=== PATIENT | male | born 1930 | race Two or more races ===

== ENCOUNTER 2018-08-16 11:14 | Inpatient (IN) | payer MEDICARE, OTHER ==
[~2018-08-16] VITALS: Ht 167.6 cm; Wt 50.0 kg
[~2018-08-16 11:14] MED LIST: CEFAZOLIN 1 GM INJ ONE
[2018-08-16 12:03] VITALS: Ht 167.6 cm; Wt 50.0 kg
[2018-08-16] MEDS ORDERED: NITR-58 PO (12:16)
[2018-08-16] MEDS ORDERED: MEMA28CA PO (12:16)
[2018-08-16] MEDS ORDERED: BICA50TA47 PO (12:16)
[2018-08-16] MEDS ORDERED: FOLI-49 PO (12:16)
[2018-08-16] MEDS ORDERED: SODI1GRA MC (12:16)
[2018-08-16] MEDS ORDERED: DUTA0.5C PO (12:16)
[2018-08-16] MEDS ORDERED: [UNRECOGNIZED DRUG - CODE] (12:16)
[2018-08-16] MEDS ORDERED: MULT-902 PO (12:16)
[2018-08-16] MEDS ORDERED: TAMS-14 PO (12:16)
[2018-08-16] MEDS ORDERED: VITA200C45 PO (12:16)
[2018-08-16 12:18] VITALS: BP 117/63; PULSE 86; RESP 22
[2018-08-16] MEDS ORDERED: LIDOCAINE 2% (SDV) 5 ML INJ ONE (12:19)
[2018-08-16] MEDS ORDERED: PROPOFOL 200 MG INJ ONE (12:19)
[2018-08-16] MEDS ORDERED: ETOMIDATE 20 MG INJ ONE (12:19)
[2018-08-16] MEDS ORDERED: PROPOFOL 40 ML ONE (12:20)
--- NOTE | 2018-08-16 12:25 | PREAC ---
Date/Time of Note Date/Time of Note DATE: 08/16/18 TIME: 12:23 Anesthesia Eval and Record Evaluation Time Pre-Procedure Interview DATE: 08/16/18 TIME: 12:23 Age 87 Sex male NPO: 8 hrs Preoperative diagnosis malnutrition, failure to thrive Planned procedure EGD w/ PEG placement Past Medical History Past Medical History: Includes Cardio: HTN, CHF Pulm: Other Neuro: Peripheral neuropathy, Other (severe alzheimer's dementia) Musculoskeletal: Osteoarthritis Renal: Other (prostate CA) Heme: Anemia, Other (aplastic anemia) Surgery & Anesthesia Issues Aspiration risk Meds Anticoagulation: No Beta Jimmy within 24 hr: No Reason Beta Jimmy not given: Pt. not on B-Jimmy Reported Medications [Pomi-T] No Conflict Check 08/16/18 Multivitamin/Iron/Folic Acid (Centrum Adults Tablet) 1 Each Tablet, 1 EACH PO, TAB 08/16/18 Dutasteride* (Avodart*) 0.5 Mg Capsule, 0.5 MG PO DAILY, CAP 08/16/18 Bicalutamide* (Bicalutamide*) 50 Mg Tablet, 50 MG PO DAILY, TAB 08/16/18 Sodium Chloride (Sodium Chloride) 1 Gm Granules, 1 GM MC 08/16/18 Vitamin E* (Vitamin E*) 200 Unit Capsule, 180 MG PO DAILY, CAP 08/16/18 Folic Acid* (Folic Acid*) 1 Mg Tablet, 1 MG PO DAILY, TAB 08/16/18 Memantine* (Namenda* XR) 28 Mg Cap.spr.24, 28 MG PO DAILY, #30 TAB 08/16/18 Tamsulosin Hcl* (Flomax*) 0.4 Mg Cap.er.24h, 0.4 MG PO DAILY, CAP 08/16/18 Nitrofurantoin Monohyd Macrocr* (Macrobid*) 100 Mg Capsr, 100 MG PO BID, CAP 08/16/18 Meds reviewed: Yes Allergies Coded Allergies: No Known Allergy (Unverified , 08/16/18) Allergies Reviewed: Yes Labs/Studies Labs Reviewed: Reviewed by anesthesiologist test: N/A Studies: ECG, CXR Pre-procedure Exam Airway: Adequate mouth opening, Adequate thyromental dist Mallampati: Mallampati III Teeth: Normal Lung: Normal Heart: Normal ASA Physical Status ASA physical status: 3 Emergency: None Planned Anesthetic General/MAC: MAC Planned Pain Management Parenteral pain med Pre-operative Attestations Prior to commencing anesthesia and surgery, the patient was re-evaluated, there was verification of: *The patient's identity *The results of appropriate recent lab work and preoperative vital signs *The above evaluation not changing prior to induction *Anesthetic plan, risk benefits, alternative and complications discussed with patient/family; questions answered; patient/family understands, accepts and wishes to proceed. GAGE DURAN MD Aug 16, 2018 12:25
[2018-08-16] MEDS ORDERED: LEVALBUTEROL (NEB) 0.63 MG/3 ML AMP HHN ONE (13:30)
[2018-08-16 14:22] VITALS: BP 120/53; PULSE 90; RESP 16
--- NOTE | 2018-08-16 15:20 | GILP ---
DATE OF PROCEDURE: 08/16/2018 PROCEDURE: Percutaneous endoscopic gastrostomy and conversion of gastrostomy tube into the jejunosto my tube. INDICATIONS: An 87-year-old male with a history of cancer of the prostate, has been suffering from m alnutrition and failure to thrive. The purpose of this procedure is to put G-tube and convert it to J-tube for long-term enteral nutrition and prevent future aspiration. The risk of the procedure, rel ated and unrelated complications, anesthetic risks, alternatives were thoroughly discussed with the p atient and patient's son, family and the and informed consent was obtained. DESCRIPTION OF PROCEDURE: The patient was brought to the GI lab, was sedated by Dr. Palacio. Ancef w as given. After optimal sedation, scope was passed with much ease into esophagus which was grossly w ithin normal limits, advanced further down into stomach and through the pyloric channel into the duod enum and all the way up to the third part. There was no evidence of obstruction. By transilluminati on and digital palpation technique, appropriate site was chosen on anterior abdominal wall. Site was sterilized with chlorhexidine solution. A 2% Xylocaine was instilled by safe method. Small incisio n was made. Through that incision, trocar stylus was passed into the stomach. Stylet was removed th rough the hollow tip of the catheter. Insertion wire was passed and the entire procedure was complet ed by modified Ponsky technique. The patient was rescoped. The position of the internal bumper conf irmed no bleeding seen. External bumper was secured. The jejunostomy tube 12-Honduran was passed with much ease into the existing G-tube. The loop of the jejunostomy was grasped with a rat tooth forcep s and passed through the biopsy channel all the way into the third part of the duodenum. With the he lp of rat tooth, the whole jejunostomy tube was pushed further down all the way into the proximal jej unum. No loop was left behind. The patient tolerated the procedure. Scope was removed with good pa tient tolerance. IMPRESSION: 1. Percutaneous endoscopic gastrostomy. 2. Placement of jejunostomy tube done successfully. PLAN: 1. Resume feeding through the jejunostomy port after 6 hours at 20 mL per hour and we will slowly in crease it over a period of 3 to 4 days to prevent refeeding syndrome. 2. The patient will be placed on erythromycin to prevent migration of the J-tube back into the stoma ch, which I doubt it because it was pigtail G-tube. 3. Continue IV hydration. 4. Abdominal binder. Dictated By: AILIN DAVALOS/NTS Conf#: [id number] DID#: [id number] CC: SANIA WHITTINGTON MD;*EndCC*
--- NOTE | 2018-08-16 15:23 | CONS ---
DATE OF ADMISSION: 08/16/2018 DATE OF CONSULTATION: TYPE OF CONSULTATION: Gastroenterology. HISTORY OF PRESENT ILLNESS: An 87-year-old male was referred for failure to thrive and malnutrition. The patient's p.o. intake had been extremely poor for the last 2 to 3 months, has been losing weigh t. He has a cancer of the prostate with probably mets to the bone, has been getting chemotherapy. T he patient is also suffering from Alzheimer disease and hypertension. No nausea, no vomiting, no GI bleeding, no chest pain, no shortness of breath, no or BUSINESS SEGMENT MANAGER problem. PAST MEDICAL HISTORY: 1. Cancer of prostate. 2. Hypertension. 3. Alzheimer disease. ALLERGIES: NONE. SOCIAL HISTORY: Does not smoke or drink. Lives at home. PHYSICAL EXAMINATION GENERAL: Thin built, cachectic. VITAL SIGNS: Stable. HEENT: Unremarkable. NECK: Supple. No thyromegaly, no lymphadenopathy. CARDIOVASCULAR: No murmur, gallop or click. LUNGS: Clear. ABDOMEN: Benign. EXTREMITIES: No edema. CENTRAL NERVOUS SYSTEM: The patient is lethargic or mentally obtunded. LABORATORY DATA: Reviewed. BUN was 30. Hemoglobin was 8.9, platelet count was 90,000. IMPRESSION: 1. Malnutrition. 2. Failure to thrive. 3. Alzheimer disease. 4. 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 5. Hypertension. PLAN: To continue IV hydration. We will proceed with the placement of G-tube for long-term enteral nutrition. I discussed with the son and the and they understood the pros and cons of the proced ure and agreed. Dictated By: AILIN DAVALOS/MORENO Conf#: [id number] DID#: [id number] CC: SANIA WHITTINGTON MD;*EndCC*
--- NOTE | 2018-08-16 15:49 | RADRPT ---
Vent Rate: 90 bpm RR Interval: 0 msec SD Interval: 122 msec QRS Duration: 64 msec QT Interval: 368 msec QTC Interval: 450 msec P-R-T [place]: 56 - 78 - 79 degrees Normal sinus rhythm with sinus arrhythmia Anteroseptal infarct , age undetermined Abnormal ECG Electronically Signed By: Alejo Angulo
--- NOTE | 2018-08-16 16:14 | PAC ---
Date/Time of Note Date/Time of Note DATE: 08/16/18 TIME: 16:14 Post-Anesthesia Notes Post-Anesthesia Note Last documented vital signs Vital Signs Date Temp Pulse Resp B/P (MAP) Pulse Ox O2 O2 Flow FiO2 Time Delivery Rate 08/16/18 98.8 90 16 120/53 95 Mask 10.0 14:22 (75) Activity: WNL Respiratory function: WNL Cardiovascular function: WNL Mental status: Baseline Pain reasonably controlled: Yes Hydration appropriate: Yes Nausea/Vomiting absent: Yes GAGE DURAN MD Aug 16, 2018 16:14
--- NOTE | 2018-08-16 17:21 | HP ---
Date/Time of Note Date/Time of Note DATE: 08/16/18 TIME: 17:10 Assessment/Plan VTE Prophylaxis SCD contraindicated: other Pharmacological prophylaxis: other Pharm contraindication: other Lines/Catheters IV Catheter Type (from Nrs): Peripheral IV Urinary Cath still in place: No Assessment/Plan Assessment/Plan - Dysphagia status post PEG placement today. - sp G-J replaced - per GI - ASPIRATION precautions - Cachexia 2/2 Malnutrition and Failure to thrive. 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 - Pancytopenia 2/2 to above - Hem/Onc consult appreciated - Hypernatremia. - Prerenal state - nephrology consult appreciated -Stage 1 - sacrococcyx - wound care consult - wound care - dietary consult - Stage 1 - heels - wound carre consult - wound care - dietary consult - SCD for DVT prophylaxis - PROTONIX fro GI prophylaxis Patient seen in collaboration with Dr Malin. Júnior staff. Júnior Conrad( Son) Result Diagram: 08/16/18 1445 08/16/18 1400 Results 24hrs Laboratory Tests Test 08/16/18 14:00 08/16/18 14:45 Prothrombin Time 13.7 Prothrombin Time Ratio 1.1 INR International Normalized Ratio 1.04 Activated Partial Thromboplast Time 24.0 Sodium Level 147 H Potassium Level 3.5 Chloride Level 113 H Carbon Dioxide Level 26 Anion Gap 8 Blood Urea Nitrogen 32 H Creatinine 0.56 L Est Glomerular Filtrat Rate mL/min Glucose Level 93 Calcium Level 9.6 White Blood Count 2.6 L Red Blood Count 2.57 L Hemoglobin 6.8 *L Hematocrit 22.3 L Mean Corpuscular Volume 86.8 Mean Corpuscular Hemoglobin 26.5 L Mean Corpuscular Hemoglobin Concent 30.5 L Red Cell Distribution Width 18.3 H Platelet Count 75 L Mean Platelet Volume 10.5 H Immature Granulocytes % 11.700 H Neutrophils % Segmented Neutrophils % (Manual) 44 Band Neutrophils % (Manual) 6 H Lymphocytes % Lymphocytes % (Manual) 35 Monocytes % Monocytes % (Manual) 6 Eosinophils % Basophils % Metamyelocytes % (manual) 2 H Myelocytes % (Manual) 1 H Promyelocytes % (Manual) 6 H Nucleated Red Blood Cells % 6 H Immature Granulocytes # 0.300 H Neutrophils # Neutrophils # (Manual) 1.1 L Band Neutrophils # 0.1 Lymphocytes (Manual) 0.9 Lymphocytes # Monocytes # Monocytes # (Manual) 0.1 L Eosinophils # Basophils # Metamyelocytes # 0.0 Myelocytes # 0.0 Promyelocytes # 0.1 H Nucleated Red Blood Cells # Platelet Estimate DECREASED Polychromasia 2+ Hypochromasia 3+ Poikilocytosis 1+ Anisocytosis 2+ Microcytosis 2+ HPI/ROS Admit Date/Time Admit Date/Time ROS Mr. Camacho is an 87-year-old male with past history of hypertension, congestive heart failure,aplastic anemia, thrombocytopenia degenerative joint disease, prostate CA, Alzheimer's dementia, who is admitted 2/2 failure to thrive and malnutrition, extremely poor for the last 2 to 3 months. and he was losing weight. Possibly his prostate cancer has metastasis to bones and he has been getting chemotherapy. Patient underwent EGD with PEG placement by Dr Mendez. today. Cardiology consulted for abnormal EKG.SP GT placement, patient was noted to have dropped in blood pressure and arrhythmia onset. Pulmonary consulted abnoral chest x-ray revealing moderate to large right pleural effusion, small to moderate left pleural effusion, extensive bilateral upper lobe and lower lobe infiltrates right greater than left, ill-defined patchy lucency throughout the bilateral humerus. Oncology consult appreciated for aplastic Anemia; mtes prostate cancer. During assessment, no reported shortness of breath, chest pain, palpitations, headache, fever, chills, focal weakness or numbness, abdominal pain, urinary frequency, vomiting, diarrhea, constipation, GI bleed, any fall/injury/ recent sick contacts or hospitalizations. Patient is admitted under Dr Malin for further treatment and evaluation. Patients family- and son Jennifer Conrad at bed side- all QS answered. Plan of care dw staff Subjective hx not possible: pt non-verbal PMH/Family/Social Past Medical History hypertension congestive heart failure aplastic anemia thrombocytopenia degenerative joint disease prostate CA Alzheimer's dementia Medical History: congestive heart failure, hypertension Coded Allergies: No Known Allergy (Unverified , 08/16/18) Past Surgical History Past Surgical Hx: other (PEG placement ) Family History Significant Family History: no pertinent family hx, other ( No history of sudden cardiac or early CAD.) Social History No current tobacco, EtOH or illicit drug use. Does not smoke or drink. Lives at home. Exam/Review of Systems Vital Signs Vitals Vital Signs Date Temp Pulse Resp B/P (MAP) Pulse Ox O2 O2 Flow FiO2 Time Delivery Rate 08/16/18 98.8 90 16 120/53 95 Mask 10.0 14:22 (75) Exam Constitutional: alert, well developed, non-verbal Psych: nl mood/affect, confusion Eyes: nl lids, nl sclera ENMT: nl external ears & nose Neck: non-tender Respiratory: diminished breath sounds Cardiovascular: nl pulses, other (S1S2) Gastrointestinal: soft, non-tender, other (SP g/j tube placement ) Musculoskeletal: muscle weakness Extremities: edema (mild pitting edema ) Neurological: confused, lethargic Skin: other (Skin Decubs ) Lymph: nontender VIRY CASTILLO Aug 16, 2018 17:21
[2018-08-16 17:47] VITALS: BP 130/59; PULSE 95; RESP 20
--- NOTE | 2018-08-16 18:27 | RADRPT ---
Echocardiogram Report Patient Name: JUANITO JAIMESPatient ID: [id number] : 1930 (87y 11m)Study Date: 08/16/2018 2:51:16 PM Gender: MAccession #: [id number] Tech: Craig Hannah [facility] Location: [address] Ref.Physician: LUIS ALBERTO LARIOS Height(Cm): BSA: Weight(Kg): Quality: AdequateAccount #: Procedures: Echocardiographic Report: Transthoracic echocardiogram with complete 2D, M-Mode, and doppler examination. Indications: Abnormal EKG. Measurements: 2D/M Mode Doppler Measurement Value Normal Range Measurement Value Normal Range LVIDd 2D 4.3 [ 4.2 - 5.8 ] cm AV Peak Dorian 1.0 [ 100.0 - 170.0 ] cm/sec LVIDs 2D 2.8 [ 2.5 - 4.0 ] cm AV Peak PG 4.0 [ 2.0 - 9.0 ] mmHg LVPWd 2D 0.9 [ 0.6 - 1.0 ] cm LVOT Peak Dorian 0.8 [ 70.0 - 110.0 ] cm/sec IVSd 2D 0.9 [ 0.6 - 1.0 ] cm LVOT Peak PG 3.0 [ 2.0 - 6.0 ] mmHg AoR Diam 2D 2.4 [ 2.6 - 3.4 ] cm MV E Peak Dorian 0.7 [ 60.0 - 130.0 ] cm/sec EDV 2D 82.2 [ 62.0 - 150.0 ] ml MV A Peak Dorian 0.8 [ 100.0 - 120.0 ] cm/sec ESV 2D 28.8 [ 21.0 - 61.0 ] ml MV E/A 0.8 [ 0.8 - 1.5 ] ratio EF 2D 65.0 [ 52.0 - 72.0 ] percent MV Decel Time 176 [ 104 - 258 ] msec LA Dimen 2D 4.3 [ 3.0 - 4.0 ] cm Lat E` Dorian 0.1 [ 10.0 - 15.0 ] cm/sec Lateral E/E` 6.9 [ 1.0 - 2.0 ] ratio MV E/A 0.8 [ 0.8 - 1.5 ] ratio TR Peak Dorian 3.3 [ 100.0 - 280.0 ] cm/sec TR Peak PG 43.0 mmHg RVSP 46.0 [ 10.0 - 36.0 ] mmHg Findings: Left Ventricle: Normal left ventricular systolic function. Normal left ventricular cavity size. Normal left ventricular wall thickness. Ejection fraction is visually estimated at 55-60 %. Tissue Doppler/Mitral Doppler indices are consistent with impaired relaxation (Stage I diastolic dysfunction). Right Ventricle: Normal right ventricular size. Normal right ventricular systolic function. Left Atrium: The left atrium is normal in size. Right Atrium: The right atrium is normal in size. Mitral Valve: Mild mitral leaflet calcification. Mild mitral annular calcification. Trace mitral regurgitation. Aortic Valve: No hemodynamically significant aortic stenosis by doppler. Aortic cusps appear mildly calcified. Tricuspid Valve: Normal appearance of the tricuspid valve. Estimated peak PA systolic pressure 46 mmHg. There is mild tricuspid regurgitation. Pericardium: Normal pericardium with no significant pericardial effusion. Large Pleural effusion seen. Aorta: Normal aortic root. IVC: Normal size and normal respiratory collapse consistent with normal right atrial pressure. Conclusions: Normal left ventricular systolic function. Normal left ventricular cavity size. Normal left ventricular wall thickness. Ejection fraction is visually estimated at 55-60 %. Tissue Doppler/Mitral Doppler indices are consistent with impaired relaxation (Stage I diastolic dysfunction). ). Mild mitral leaflet calcification. Mild mitral annular calcification. Trace mitral regurgitation. Normal appearance of the tricuspid valve. Estimated peak PA systolic pressure 46 mmHg. There is mild tricuspid regurgitation. Normal pericardium with no significant pericardial effusion. Large Pleural effusion seen. Electronically Signed By: Luis Alberto Larios 2018-08-16 18:25:59 PDT
--- NOTE | 2018-08-16 18:35 | CONS ---
DATE OF ADMISSION: 08/16/2018 DATE OF CONSULTATION: 08/16/2018 TYPE OF CONSULTATION: Cardiology. REASON FOR CONSULTATION: Abnormal electrocardiogram, assess for acute coronary syndrome as well as c ardiac arrhythmia. REQUESTING PHYSICIANS: Shun Coleman MD and Sania Whittington MD HISTORY OF PRESENT ILLNESS: Mr. Camacho is an 87-year-old male with history of aplastic anemia with subsequent anemia and thrombocytopenia, hypertension, congestive heart failure, degenerative joint d isease, prostate CA, Alzheimer's dementia, who presents with failure to thrive and subsequently under went EGD with PEG placement today. Postoperatively, the patient was noted to have decrease in blood pressure and arrhythmia onset. The patient had an EKG done which revealed normal sinus rhythm, sinus arrhythmia at a rate of 90 with a normal axis, normal intervals, borderline low voltage in the anter oseptal Q's. The patient subsequently has been admitted to the telemetry floor where since admit has stable blood pressures systolic of 120 to 130 over diastolic of 50 to 59, pulse is in the 90s. The patient's labs are thus far notable for white count of 2.6, hemoglobin 6.8 and platelet count of 75, a sodium of 147, potassium 3.5, creatinine 0.5, BUN 32, INR of 1. The patient underwent a chest x-ra y revealing moderate to large right pleural effusion, small to moderate left pleural effusion, extens gus bilateral upper lobe and lower lobe infiltrates right greater than left, ill-defined patchy lucen cy throughout the bilateral humerus. PAST MEDICAL HISTORY: As above in HPI. MEDICATIONS CURRENTLY IN HOSPITAL: Pending at this time. MEDICATIONS PRIOR TO ADMIT: 1. Nitrofurantoin or Macrobid. 2. Casodex. 3. Flomax. 4. Namenda. 5. Sodium tablets 1 gram daily. 6. Folic acid. 7. Multi-Precious. 8. Folic acid. 9. Iron. 10. Vitamin E. 11. Avodart. ALLERGIES: NO KNOWN DRUG ALLERGIES. SOCIAL HISTORY: No current tobacco, EtOH or illicit drug use. FAMILY HISTORY: No history of sudden cardiac or early CAD. REVIEW OF SYSTEMS: As above in HPI. CONSTITUTIONAL: No fevers, chills. PULMONARY: No current signs of respiratory compromise. GASTROINTESTINAL: Dysphagia status post PEG placement today. GENITOURINARY: No hematuria. MUSCULOSKELETAL: Degenerative joint disease. PSYCHIATRIC: No documented psych history. NEUROLOGIC: Severe dementia of Alzheimer's. HEMATOLOGY AND ONCOLOGY: Prostate CA, anemia. PHYSICAL EXAMINATION: VITAL SIGNS: Temperature 97.4, blood pressure 130/59, pulse 95, respiratory rate 20, satting 98%. GENERAL: The patient is awake, noncommunicative. NECK: No jugular venous distention. CHEST: Upper airway transmitted rhonchorous sounds. Decreased breath sounds at bases bilaterally. HEART: Regular rate and rhythm. Normal S1, S2, I/ systolic murmur. ABDOMEN: Positive G-tube. Abdominal binder in place. EXTREMITIES: Generalized wasting. No significant lower extremity edema. LABORATORY DATA: As above in HPI. No further labs for my review at this time. IMAGING STUDIES: As above in HPI. No further imaging studies for my review at this time. ELECTROCARDIOGRAM: As above in HPI. No further electrocardiograms for my review at this time. IMPRESSION: 1. Abnormal electrocardiogram, assess for acute coronary syndrome. 2. Cardiac arrhythmia at this time, most consistent with sinus arrhythmia. 3. History of hypertension with per report hypotension at the end of the procedure. 4. Dysphagia, status post PEG placement today. 5. Failure to thrive. 6. History of prostate carcinoma. 7. History of aplastic anemia with ongoing anemia at this time. 8. Hypernatremia. 9. Prerenal state. 10. Pancytopenia. RECOMMENDATIONS: 1. At this time, we would maintain the patient on telemetry monitoring to follow rhythm and rates cl osely. 2. Recheck serial EKGs to assess for any significant ongoing changes, thus a repeat EKG in the [facility] EKG for any changes in rhythm. 3. We would complete the patient's rule out for myocardial infarction to ensure the patient's EKG ab normalities and anteroseptal Q's are chronic in nature and not due to any recent acute coronary event s and additionally to assure the patient's hypotensive episodes post-procedure were not due to any ac [place] coronary syndrome. 4. We will follow up patient's 2D echo and this will be done for assessment of ejection fraction, wa ll motion or rule out any major valve abnormalities. 5. Follow the patient's volume status closely. We will check a BNP to further assess and we would a dditionally give free water for elevated sodium. 6. Additionally consider possible antibiotic therapy given the findings with chest x-ray. Thank you for allowing me to take part in the care of this patient. I will continue to follow him ve ry closely with you with further recommendations to be made as the [facility] Dictated By: LUIS ALBERTO WHITE/MORENO Conf#: [id number] DID#: [id number] CC: SANIA WHITTINGTON MD; AILIN RUEDA MD; SHUN COLEMAN MD;*EndCC*
[2018-08-16 19:36] VITALS: BP 131/63; PULSE 83; RESP 18
[2018-08-16 20:00] VITALS: PULSE 90
[2018-08-16] MEDS ORDERED: PENDING SANTYL ORDER FOR WOUND CARE XX PRN (20:00)
[2018-08-16] MEDS ORDERED: CYANOCOBALAMIN 1000 MCG INJ IM ONE (20:00)
[2018-08-16] MEDS: DEXTROSE 5%-0.45% NACL 1,000 ML IV SCH (20:17)
[2018-08-16] MEDS: ASCORBIC ACID 500 MG TAB GTB SCH (22:04)
[2018-08-16] MEDS: METHENAMINE 1 GM TAB PO SCH (22:04)
[2018-08-17] VITALS (14 sets, daily range): BP systolic 106–158; BP diastolic 58–71; PULSE 86–99; RESP 17–20
--- NOTE | 2018-08-17 08:17 | CONS ---
Assessment/Plan Assessment/Plan Hospital Course (Demo Recall) 87 yo male with prostate cancer with possible bone mets presents with failure to thrive and malnutrition. S/P PEG 08/[address] Mendez 1. Malnutrition. 2. Failure to thrive. 3. Alzheimer disease. 4. 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 5. Hypertension. PLAN: Check residuals q 6 hours, hold for residuals greater than 50cc Flush [id number] water q 6 hours Titrate tube feeds slowly to prevent refeeding syndrome, continue at 20cc Monitor electrolytes for refeeding syndrome Continue with erythromycin Abdominal binder Continue with IV hydration until pt is at goal Pt examined and plan of care discussed with Dr. Mendez Consultation Date/Type/Reason Admit Date/Time Aug 16, 2018 at 14:10 Initial Consult Date Date/Time of Note DATE: 08/17/18 TIME: 08:14 Exam/Review of Systems Exam Vitals Vital Signs Date Temp Pulse Resp B/P (MAP) Pulse Ox O2 O2 Flow FiO2 Time Delivery Rate 08/17/18 88 08:04 08/17/18 98.2 20 153/65 100 07:31 (94) 08/16/18 Nasal 2.0 20:00 Cannula Intake and Output 08/16/18 08/16/18 08/17/18 1515:00 23:00 07:00 IntakeIntake Total 730 ml OutputOutput Total 1 ml BalanceBalance 729 ml Constitutional: alert Head: normocephalic ENMT: other (mucosa dry) Respiratory: clear to auscultation Cardiovascular: regular rate and rhythm Gastrointestinal: soft, non-tender, other (g tube site clean and dry, abdominal binder in place) Musculoskeletal: muscle weakness Neurological: other (Follows commands but did not answer any of my questions) Results Result Diagram: 08/16/18 1445 08/16/18 1400 Results 24hrs Laboratory Tests Test 08/16/18 14:00 08/16/18 14:45 08/17/18 07:11 Prothrombin Time 13.7 Prothrombin Time Ratio 1.1 INR International Normalized Ratio 1.04 Activated Partial Thromboplast Time 24.0 Sodium Level 147 H Potassium Level 3.5 Chloride Level 113 H Carbon Dioxide Level 26 Anion Gap 8 Blood Urea Nitrogen 32 H Creatinine 0.56 L Est Glomerular Filtrat Rate mL/min Glucose Level 93 Calcium Level 9.6 Thyroid Stimulating Hormone (TSH) 4.510 White Blood Count 2.6 L Pending Red Blood Count 2.57 L Pending Hemoglobin 6.8 *L Pending Hematocrit 22.3 L Pending Mean Corpuscular Volume 86.8 Pending Mean Corpuscular Hemoglobin 26.5 L Pending Mean Corpuscular Hemoglobin Concent 30.5 L Pending Red Cell Distribution Width 18.3 H Pending Platelet Count 75 L Pending Mean Platelet Volume 10.5 H Pending Immature Granulocytes % 11.700 H Neutrophils % Segmented Neutrophils % (Manual) 44 Band Neutrophils % (Manual) 6 H Lymphocytes % Lymphocytes % (Manual) 35 Monocytes % Monocytes % (Manual) 6 Eosinophils % Basophils % Metamyelocytes % (manual) 2 H Myelocytes % (Manual) 1 H Promyelocytes % (Manual) 6 H Nucleated Red Blood Cells % 6 H Immature Granulocytes # 0.300 H Neutrophils # Neutrophils # (Manual) 1.1 L Band Neutrophils # 0.1 Lymphocytes (Manual) 0.9 Lymphocytes # Monocytes # Monocytes # (Manual) 0.1 L Eosinophils # Basophils # Metamyelocytes # 0.0 Myelocytes # 0.0 Promyelocytes # 0.1 H Nucleated Red Blood Cells # Platelet Estimate DECREASED Polychromasia 2+ Hypochromasia 3+ Poikilocytosis 1+ Anisocytosis 2+ Microcytosis 2+ Medications Medication Current Medications Dextrose/Sodium Chloride 1,000 ml @ 50 mls/hr Q20H IV Last administered on 08/16/18at 20:17; Admin Dose 50 MLS/HR; Start 08/16/18 at 18:30 Miscellaneous Information (Pending [facility] Order For Wound Care) This patient tabares... PRN PRN XX WOUND CARE; Start 08/16/18 at 20:00 Methenamine (Hiprex) 1 gm BID PO Last administered on 08/16/18at 22:04; Admin Dose 1 GM; Start 08/16/18 at 21:00 Acetaminophen (Tylenol Tab) 500 mg Q4H PRN PO MILD PAIN(1-3)OR ELEVATED TEMP; Start 08/16/18 at 20:00 Ascorbic Acid (Vitamin C) 500 mg BID GTB Last administered on 08/16/18at 22:04; Admin Dose 500 MG; Start 08/16/18 at 21:00 Zinc Sulfate (Zinc Sulfate) 220 mg DAILY PO ; Start 08/17/18 at 09:00 Prenat Multivit/ [place]/Iron/Folic Ac () 1 tab DAILY PO ; Start 08/17/18 at 09:00 Bicalutamide (Casodex) 50 mg DAILY PO ; Start 08/17/18 at 09:00 Dutasteride (Avodart) 0.5 mg DAILY PO ; Start 08/17/18 at 09:00 ADRIEL DELCID Aug 17, 2018 08:17
[2018-08-17] MEDS ORDERED: BICALUTAMIDE 50 MG TAB PO SCH (09:00)
[2018-08-17] MEDS: ASCORBIC ACID 500 MG TAB GTB SCH ×2 (09:22→20:52)
[2018-08-17] MEDS: DUTASTERIDE 0.5 MG CAP PO SCH (09:22)
[2018-08-17] MEDS: METHENAMINE 1 GM TAB PO SCH ×2 (09:22→20:51)
[2018-08-17] MEDS: PRENATAL VITAMIN PO SCH (09:22)
[2018-08-17] MEDS: ZINC SULFATE 220 MG CAP PO SCH (09:22)
--- NOTE | 2018-08-17 11:11 | CONS ---
Assessment/Plan Assessment/Plan Assessment/Plan (Daily) CT chest showing bilateral large pleural effusions. Assessment and recommendations; 1. Patient admitted for failure to thrive with incidental discovery of large bilateral pleural effusions. 2. Extreme elevation in PSA indicative of widely metastatic prostate cancer. Patient status post attempted hormonal treatment which was discontinued because of intolerance to the medication. 3. Pancytopenia. Continue current supportive care. Obtain ultrasound-guided right thoracentesis. Consultation Date/Type/Reason Admit Date/Time Aug 16, 2018 at 14:10 Date of Consultation: Aug 17, 2018 Type of Consult Pulmonary Patient is an 87-year-old gentleman who was brought into the hospital because of failure to thrive. Upon further evaluation of chest x-ray was done which is showing bilateral pleural effusions subsequently confirmed by CT of the chest. The patient has advanced dementia and was unable to give any history by himself whatsoever. History was obtained from medical records as well as from patient's son who is an anesthesiologist at the hospital according to the patient's son patient is having significant clinical decline with failure to thrive as well as bedridden state. Patient also exhibiting advanced dementia. By the time I saw the patient, patient is lying comfortably in bed and did not appear to be in any distress. Past medical history; 1. History of metastatic prostate cancer. Status post hormone treatment with the patient could not continue because of side effects. 2. Pancytopenia, likely related to bone marrow involvement by prostate cancer. 3. Advanced dementia. Medications; reviewed. Allergies; none. Family history; noncontributory. Review of systems; unable to be obtained. General exam; elderly male, laying comfortably in bed. Currently no distress. Awake but noncommunicative. Date/Time of Note DATE: 08/17/18 TIME: 11:08 Past Medical History Home Meds Reported Medications [Pomi-T] No Conflict Check 08/16/18 Multivitamin/Iron/Folic Acid (Centrum Adults Tablet) 1 Each Tablet, 1 EACH PO, TAB 08/16/18 Dutasteride* (Avodart*) 0.5 Mg Capsule, 0.5 MG PO DAILY, CAP 08/16/18 Bicalutamide* (Bicalutamide*) 50 Mg Tablet, 50 MG PO DAILY, TAB 08/16/18 Sodium Chloride (Sodium Chloride) 1 Gm Granules, 1 GM MC 08/16/18 Vitamin E* (Vitamin E*) 200 Unit Capsule, 180 MG PO DAILY, CAP 08/16/18 Folic Acid* (Folic Acid*) 1 Mg Tablet, 1 MG PO DAILY, TAB 08/16/18 Memantine* (Namenda* XR) 28 Mg Cap.spr.24, 28 MG PO DAILY, #30 TAB 08/16/18 Tamsulosin Hcl* (Flomax*) 0.4 Mg Cap.er.24h, 0.4 MG PO DAILY, CAP 08/16/18 Nitrofurantoin Monohyd Macrocr* (Macrobid*) 100 Mg Capsr, 100 MG PO BID, CAP 08/16/18 Medications Current Medications Dextrose/Sodium Chloride 1,000 ml @ 50 mls/hr Q20H IV Last administered on 08/16/18at 20:17; Admin Dose 50 MLS/HR; Start 08/16/18 at 18:30 Miscellaneous Information (Pending [facility] Order For Wound Care) This patient tabares... PRN PRN XX WOUND CARE; Start 08/16/18 at 20:00 Methenamine (Hiprex) 1 gm BID PO Last administered on 08/17/18at 09:22; Admin Dose 1 GM; Start 08/16/18 at 21:00 Acetaminophen (Tylenol Tab) 500 mg Q4H PRN PO MILD PAIN(1-3)OR ELEVATED TEMP; Start 08/16/18 at 20:00 Ascorbic Acid (Vitamin C) 500 mg BID GTB Last administered on 08/17/18at 09:22; Admin Dose 500 MG; Start 08/16/18 at 21:00 Zinc Sulfate (Zinc Sulfate) 220 mg DAILY PO Last administered on 08/17/18at 09:22; Admin Dose 220 MG; Start 08/17/18 at 09:00 Prenat Multivit/ [place]/Iron/Folic Ac () 1 tab DAILY PO Last administered on 08/17/18 09:22; Admin Dose 1 TAB; Start 08/17/18 at 09:00 Bicalutamide (Casodex) 50 mg DAILY PO ; Start 08/17/18 at 09:00 Dutasteride (Avodart) 0.5 mg DAILY PO Last administered on 08/17/18at 09:22; Admin Dose 0.5 MG; Start 08/17/18 at 09:00 Allergies: Coded Allergies: No Known Allergy (Unverified , 08/16/18) Exam/Review of Systems Exam Vitals Vital Signs Date Temp Pulse Resp B/P (MAP) Pulse Ox O2 O2 Flow FiO2 Time Delivery Rate 08/17/18 88 08:04 08/17/18 98.2 20 153/65 100 07:31 (94) 08/16/18 Nasal 2.0 20:00 Cannula Intake and Output 08/16/18 08/16/18 08/17/18 1515:00 23:00 07:00 IntakeIntake Total 730 ml OutputOutput Total 1 ml BalanceBalance 729 ml Exam H EENT exam; supple neck, no JVD. No lymphadenopathy. Midline trachea. No neck masses. Chest exam; diminished breath sounds bilaterally. S1-S2 audible, no murmurs. Regular rhythm. Abdomen exam; soft, G-tube in place. No organomegaly. Nondistended. Bowel sounds are audible. Extremity exam; no peripheral edema. Patient does have flexion contractures in extremities. [employer] exam; patient awake but noncommunicative. Results Result Diagram: 08/17/18 0711 08/17/18 0711 Results 24hrs Laboratory Tests Test 08/16/18 14:00 08/16/18 14:45 08/17/18 07:11 Prothrombin Time 13.7 Prothrombin Time Ratio 1.1 INR International Normalized Ratio 1.04 Activated Partial Thromboplast Time 24.0 Sodium Level 147 H 149 H Potassium Level 3.5 3.8 Chloride Level 113 H 113 H Carbon Dioxide Level 26 30 Anion Gap 8 6 Blood Urea Nitrogen 32 H 28 H Creatinine 0.56 L 0.54 L Est Glomerular Filtrat Rate mL/min Glucose Level 93 128 Calcium Level 9.6 9.6 Thyroid Stimulating Hormone (TSH) 4.510 White Blood Count 2.6 L 3.1 L Red Blood Count 2.57 L 3.23 #L Hemoglobin 6.8 *L 9.1 #L Hematocrit 22.3 L 29.0 #L Mean Corpuscular Volume 86.8 89.8 Mean Corpuscular Hemoglobin 26.5 L 28.2 L Mean Corpuscular Hemoglobin Concent 30.5 L 31.4 L Red Cell Distribution Width 18.3 H 17.2 H Platelet Count 75 L 81 L Mean Platelet Volume 10.5 H Immature Granulocytes % 11.700 H 10.700 H Neutrophils % Segmented Neutrophils % (Manual) 44 Band Neutrophils % (Manual) 6 H Lymphocytes % Lymphocytes % (Manual) 35 Monocytes % Monocytes % (Manual) 6 Eosinophils % Basophils % Metamyelocytes % (manual) 2 H Myelocytes % (Manual) 1 H Promyelocytes % (Manual) 6 H Nucleated Red Blood Cells % 6 H 13.6 H Immature Granulocytes # 0.300 H 0.330 H Neutrophils # Neutrophils # (Manual) 1.1 L Band Neutrophils # 0.1 Lymphocytes (Manual) 0.9 Lymphocytes # Monocytes # Monocytes # (Manual) 0.1 L Eosinophils # Basophils # Metamyelocytes # 0.0 Myelocytes # 0.0 Promyelocytes # 0.1 H Nucleated Red Blood Cells # Platelet Estimate DECREASED Polychromasia 2+ Hypochromasia 3+ Poikilocytosis 1+ Anisocytosis 2+ Microcytosis 2+ Total Bilirubin 0.6 Direct Bilirubin 0.00 Indirect Bilirubin 0.6 Aspartate Amino Transf (AST/SGOT) 54 H Alanine Aminotransferase (ALT/SGPT) 16 Alkaline Phosphatase 248 H Creatine Kinase 248 H Creatine Kinase Index 1.5 Creatinine Kinase MB (Mass) 3.61 H Troponin I 0.016 Total Protein 5.8 L Albumin 2.9 L Globulin 2.90 Albumin/Globulin Ratio 1.00 Triglycerides Level 205 H Cholesterol Level 148 LDL Cholesterol, Calculated 75 HDL Cholesterol 32 Cholesterol/HDL Ratio 4.6 Prostate Specific Antigen > 1000.0 H Medications Medication Current Medications Dextrose/Sodium Chloride 1,000 ml @ 50 mls/hr Q20H IV Last administered on 08/16/18at 20:17; Admin Dose 50 MLS/HR; Start 08/16/18 at 18:30 Miscellaneous Information (Pending [facility] Order For Wound Care) This patient tabares... PRN PRN XX WOUND CARE; Start 08/16/18 at 20:00 Methenamine (Hiprex) 1 gm BID PO Last administered on 08/17/18at 09:22; Admin Dose 1 GM; Start 08/16/18 at 21:00 Acetaminophen (Tylenol Tab) 500 mg Q4H PRN PO MILD PAIN(1-3)OR ELEVATED TEMP; Start 08/16/18 at 20:00 Ascorbic Acid (Vitamin C) 500 mg BID GTB Last administered on 08/17/18at 09:22; Admin Dose 500 MG; Start 08/16/18 at 21:00 Zinc Sulfate (Zinc Sulfate) 220 mg DAILY PO Last administered on 08/17/18at 09:22; Admin Dose 220 MG; Start 08/17/18 at 09:00 Prenat Multivit/ [place]/Iron/Folic Ac () 1 tab DAILY PO Last administered on 08/17/18at 09:22; Admin Dose 1 TAB; Start 08/17/18 at 09:00 Bicalutamide (Casodex) 50 mg DAILY PO ; Start 08/17/18 at 09:00 Dutasteride (Avodart) 0.5 mg DAILY PO Last administered on 08/17/18at 09:22; Admin Dose 0.5 MG; Start 08/17/18 at 09:00 LATISHA RAM Aug 17, 2018 11:11
--- NOTE | 2018-08-17 11:46 | PN ---
Date/Time of Note Date/Time of Note DATE: 08/17/18 TIME: 11:44 Assessment/Plan VTE Prophylaxis Risk score (from Ns)>0 risk: 12 SCD applied (from [facility] [place] Yes SCD contraindicated: other Pharmacological prophylaxis: other Pharm contraindication: other Lines/Catheters IV Catheter Type (from [facility]): Peripheral IV Urinary Cath still in place: No Assessment/Plan Assessment/Plan - Dysphagia status post PEG placement today. - sp G-J replaced - per GI - ASPIRATION precautions - Cachexia 2/2 Malnutrition and Failure to thrive. 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 - Pancytopenia 2/2 to above - per Hem/Onc consult - Hypernatremia. - Prerenal state - nephrology consult appreciated if no improvement -Stage 1 - sacrococcyx - wound care consult - wound care - dietary consult - Stage 1 - heels - wound carre consult - wound care - dietary consult - SCD for DVT prophylaxis - PROTONIX fro GI prophylaxis Patient seen in collaboration with Dr Malin. Júnior staff. Júnior Conrad( Son) Result Diagram: 08/17/18 0711 08/17/18 0711 Results 24hrs Laboratory Tests Test 08/16/18 14:00 08/16/18 14:45 08/17/18 07:11 Prothrombin Time 13.7 Prothrombin Time Ratio 1.1 INR International Normalized Ratio 1.04 Activated Partial Thromboplast Time 24.0 Sodium Level 147 H 149 H Potassium Level 3.5 3.8 Chloride Level 113 H 113 H Carbon Dioxide Level 26 30 Anion Gap 8 6 Blood Urea Nitrogen 32 H 28 H Creatinine 0.56 L 0.54 L Est Glomerular Filtrat Rate mL/min Glucose Level 93 128 Calcium Level 9.6 9.6 Thyroid Stimulating Hormone (TSH) 4.510 White Blood Count 2.6 L 3.1 L Red Blood Count 2.57 L 3.23 #L Hemoglobin 6.8 *L 9.1 #L Hematocrit 22.3 L 29.0 #L Mean Corpuscular Volume 86.8 89.8 Mean Corpuscular Hemoglobin 26.5 L 28.2 L Mean Corpuscular Hemoglobin Concent 30.5 L 31.4 L Red Cell Distribution Width 18.3 H 17.2 H Platelet Count 75 L 81 L Mean Platelet Volume 10.5 H Immature Granulocytes % 11.700 H 10.700 H Neutrophils % Segmented Neutrophils % (Manual) 44 Band Neutrophils % (Manual) 6 H Lymphocytes % Lymphocytes % (Manual) 35 Monocytes % Monocytes % (Manual) 6 Eosinophils % Basophils % Metamyelocytes % (manual) 2 H Myelocytes % (Manual) 1 H Promyelocytes % (Manual) 6 H Nucleated Red Blood Cells % 6 H 13.6 H Immature Granulocytes # 0.300 H 0.330 H Neutrophils # Neutrophils # (Manual) 1.1 L Band Neutrophils # 0.1 Lymphocytes (Manual) 0.9 Lymphocytes # Monocytes # Monocytes # (Manual) 0.1 L Eosinophils # Basophils # Metamyelocytes # 0.0 Myelocytes # 0.0 Promyelocytes # 0.1 H Nucleated Red Blood Cells # Platelet Estimate DECREASED Polychromasia 2+ Hypochromasia 3+ Poikilocytosis 1+ Anisocytosis 2+ Microcytosis 2+ Total Bilirubin 0.6 Direct Bilirubin 0.00 Indirect Bilirubin 0.6 Aspartate Amino Transf (AST/SGOT) 54 H Alanine Aminotransferase (ALT/SGPT) 16 Alkaline Phosphatase 248 H Creatine Kinase 248 H Creatine Kinase Index 1.5 Creatinine Kinase MB (Mass) 3.61 H Troponin I 0.016 Total Protein 5.8 L Albumin 2.9 L Globulin 2.90 Albumin/Globulin Ratio 1.00 Triglycerides Level 205 H Cholesterol Level 148 LDL Cholesterol, Calculated 75 HDL Cholesterol 32 Cholesterol/HDL Ratio 4.6 Prostate Specific Antigen > 1000.0 H Subjective 24 Hr Interval Summary Free Text/Dictation nad resting; seems comfortable hgb stable-9.1 today -no new issue reported last night per staff Subjective hx not possible: pt non-verbal Constitutional: requiring O2 Exam/Review of Systems Exam Vitals Vital Signs Date Temp Pulse Resp B/P (MAP) Pulse Ox O2 O2 Flow FiO2 Time Delivery Rate 08/17/18 Nasal 2.0 09:00 Cannula 08/17/18 88 08:04 08/17/18 98.2 20 153/65 100 07:31 (94) Intake and Output 08/16/18 08/16/18 08/17/18 1515:00 23:00 07:00 IntakeIntake Total 730 ml OutputOutput Total 1 ml BalanceBalance 729 ml Constitutional: alert, frail Psych: nl mood/affect Head: atraumatic Eyes: nl lids, nl sclera ENMT: nl external ears & nose Respiratory: clear to auscultation Cardiovascular: nl pulses, other (s1s2) Gastrointestinal: soft, non-tender Musculoskeletal: muscle weakness Extremities: normal pulses Neurological: confused, other (alert) Skin: other Lymph: nontender Results Results 24hrs Laboratory Tests Test 08/16/18 14:00 08/16/18 14:45 08/17/18 07:11 Prothrombin Time 13.7 Prothrombin Time Ratio 1.1 INR International Normalized Ratio 1.04 Activated Partial Thromboplast Time 24.0 Sodium Level 147 H 149 H Potassium Level 3.5 3.8 Chloride Level 113 H 113 H Carbon Dioxide Level 26 30 Anion Gap 8 6 Blood Urea Nitrogen 32 H 28 H Creatinine 0.56 L 0.54 L Est Glomerular Filtrat Rate mL/min Glucose Level 93 128 Calcium Level 9.6 9.6 Thyroid Stimulating Hormone (TSH) 4.510 White Blood Count 2.6 L 3.1 L Red Blood Count 2.57 L 3.23 #L Hemoglobin 6.8 *L 9.1 #L Hematocrit 22.3 L 29.0 #L Mean Corpuscular Volume 86.8 89.8 Mean Corpuscular Hemoglobin 26.5 L 28.2 L Mean Corpuscular Hemoglobin Concent 30.5 L 31.4 L Red Cell Distribution Width 18.3 H 17.2 H Platelet Count 75 L 81 L Mean Platelet Volume 10.5 H Immature Granulocytes % 11.700 H 10.700 H Neutrophils % Segmented Neutrophils % (Manual) 44 Band Neutrophils % (Manual) 6 H Lymphocytes % Lymphocytes % (Manual) 35 Monocytes % Monocytes % (Manual) 6 Eosinophils % Basophils % Metamyelocytes % (manual) 2 H Myelocytes % (Manual) 1 H Promyelocytes % (Manual) 6 H Nucleated Red Blood Cells % 6 H 13.6 H Immature Granulocytes # 0.300 H 0.330 H Neutrophils # Neutrophils # (Manual) 1.1 L Band Neutrophils # 0.1 Lymphocytes (Manual) 0.9 Lymphocytes # Monocytes # Monocytes # (Manual) 0.1 L Eosinophils # Basophils # Metamyelocytes # 0.0 Myelocytes # 0.0 Promyelocytes # 0.1 H Nucleated Red Blood Cells # Platelet Estimate DECREASED Polychromasia 2+ Hypochromasia 3+ Poikilocytosis 1+ Anisocytosis 2+ Microcytosis 2+ Total Bilirubin 0.6 Direct Bilirubin 0.00 Indirect Bilirubin 0.6 Aspartate Amino Transf (AST/SGOT) 54 H Alanine Aminotransferase (ALT/SGPT) 16 Alkaline Phosphatase 248 H Creatine Kinase 248 H Creatine Kinase Index 1.5 Creatinine Kinase MB (Mass) 3.61 H Troponin I 0.016 Total Protein 5.8 L Albumin 2.9 L Globulin 2.90 Albumin/Globulin Ratio 1.00 Triglycerides Level 205 H Cholesterol Level 148 LDL Cholesterol, Calculated 75 HDL Cholesterol 32 Cholesterol/HDL Ratio 4.6 Prostate Specific Antigen > 1000.0 H Medications Medication Current Medications Dextrose/Sodium Chloride 1,000 ml @ 50 mls/hr Q20H IV Last administered on 08/16/18at 20:17; Admin Dose 50 MLS/HR; Start 08/16/18 at 18:30 Miscellaneous Information (Pending [facility] Order For Wound Care) This patient tabares... PRN PRN XX WOUND CARE; Start 08/16/18 at 20:00 Methenamine (Hiprex) 1 gm BID PO Last administered on 08/17/18 09:22; Admin Dose 1 GM; Start 08/16/18 at 21:00 Acetaminophen (Tylenol Tab) 500 mg Q4H PRN PO MILD PAIN(1-3)OR ELEVATED TEMP; Start 08/16/18 at 20:00 Ascorbic Acid (Vitamin C) 500 mg BID GTB Last administered on 08/17/18at 09:22; Admin Dose 500 MG; Start 08/16/18 at 21:00 Zinc Sulfate (Zinc Sulfate) 220 mg DAILY PO Last administered on 08/17/18 09:22; Admin Dose 220 MG; Start 08/17/18 at 09:00 Prenat Multivit/ [place]/Iron/Folic Ac () 1 tab DAILY PO Last administered on 08/17/18 09:22; Admin Dose 1 TAB; Start 08/17/18 at 09:00 Bicalutamide (Casodex) 50 mg DAILY PO ; Start 08/17/18 at 09:00 Dutasteride (Avodart) 0.5 mg DAILY PO Last administered on 08/17/18at 09:22; Admin Dose 0.5 MG; Start 08/17/18 at 09:00 VIRY CASTILLO Aug 17, 2018 11:46
--- NOTE | 2018-08-17 13:44 | CONS ---
Assessment/Plan Assessment/Plan Hospital Course (Demo Recall) 87 yo with advanced prostate ca who we are asked to see for anemia -check iron studies, ferritin, b12, TSH, haptoglobin -have left message for son who is an anesthesiologist to get info on his prior tx and prognosis -we do not know what his baseline counts are -transfuse to keep hgb >7 and plt >10K pt is very frail, poor PS perhaps would be good palliative care candidate will discuss with son once he calls back Consultation Date/Type/Reason Admit Date/Time Aug 16, 2018 at 14:10 Date/Time of Note DATE: 08/17/18 TIME: 13:20 Hx of Present Illness 87 yo h/o prostate ca and advanced dementia brought in by family for failure to thrive. His labs showed WBC 3.1, hgb 9.1, plt 81K, PSA >1000. Initial w/u with chest x-ray showed bilateral pleural effusions subsequently confirmed by CT of the chest. Constitutional: no complaints, improved Eyes: no complaints ENT: no complaints Respiratory: no complaints Gastrointestinal: no complaints Genitourinary: no complaints Musculoskeletal: no complaints Skin: no complaints Past Medical History Home Meds Reported Medications [Pomi-T] No Conflict Check 08/16/18 Multivitamin/Iron/Folic Acid (Centrum Adults Tablet) 1 Each Tablet, 1 EACH PO, TAB 08/16/18 Dutasteride* (Avodart*) 0.5 Mg Capsule, 0.5 MG PO DAILY, CAP 08/16/18 Bicalutamide* (Bicalutamide*) 50 Mg Tablet, 50 MG PO DAILY, TAB 08/16/18 Sodium Chloride (Sodium Chloride) 1 Gm Granules, 1 GM MC 08/16/18 Vitamin E* (Vitamin E*) 200 Unit Capsule, 180 MG PO DAILY, CAP 08/16/18 Folic Acid* (Folic Acid*) 1 Mg Tablet, 1 MG PO DAILY, TAB 08/16/18 Memantine* (Namenda* XR) 28 Mg Cap.spr.24, 28 MG PO DAILY, #30 TAB 08/16/18 Tamsulosin Hcl* (Flomax*) 0.4 Mg Cap.er.24h, 0.4 MG PO DAILY, CAP 08/16/18 Nitrofurantoin Monohyd Macrocr* (Macrobid*) 100 Mg Capsr, 100 MG PO BID, CAP 08/16/18 Medications Current Medications Dextrose/Sodium Chloride 1,000 ml @ 50 mls/hr Q20H IV Last administered on 08/16/18at 20:17; Admin Dose 50 MLS/HR; Start 08/16/18 at 18:30 [facility] This patient tabares... PRN PRN XX WOUND CARE; Start 08/16/18 at 20:00 Methenamine (Hiprex) 1 gm BID PO Last administered on 08/17/18 09:22; Admin Dose 1 GM; Start 08/16/18 at 21:00 Acetaminophen (Tylenol Tab) 500 mg Q4H PRN PO MILD PAIN(1-3)OR ELEVATED TEMP; Start 08/16/18 at 20:00 Ascorbic Acid (Vitamin C) 500 mg BID GTB Last administered on 08/17/18 09:22; Admin Dose 500 MG; Start 08/16/18 at 21:00 Zinc Sulfate (Zinc Sulfate) 220 mg DAILY PO Last administered on 08/17/18 09:22; Admin Dose 220 MG; Start 08/17/18 at 09:00 Prenat Multivit/ [place]/Iron/Folic Ac () 1 tab DAILY PO Last administered on 08/17/18 09:22; Admin Dose 1 TAB; Start 08/17/18 at 09:00 Bicalutamide (Casodex) 50 mg DAILY PO ; Start 08/17/18 at 09:00 Dutasteride (Avodart) 0.5 mg DAILY PO Last administered on 08/17/18 09:22; Admin Dose 0.5 MG; Start 08/17/18 at 09:00 Allergies: Coded Allergies: No Known Allergy (Unverified , 08/16/18) Exam/Review of Systems Exam Vitals Vital Signs Date Temp Pulse Resp B/P (MAP) Pulse Ox O2 O2 Flow FiO2 Time Delivery Rate 08/17/18 98.6 89 20 149/63 100 12:51 (91) 08/17/18 Nasal 2.0 09:00 Cannula Intake and Output 08/16/18 08/16/18 08/17/18 1515:00 23:00 07:00 IntakeIntake Total 730 ml OutputOutput Total 1 ml BalanceBalance 729 ml Constitutional: alert, oriented, frail Psych: no complaints, nl mood/affect Musculoskeletal: nl extremities to inspection, nl gait and stance Extremities: normal pulses Neurological: AGENT II-XII intact, nl mental status, nl speech, nl strength Results Result Diagram: 08/17/18 0711 08/17/18 0711 Results 24hrs Laboratory Tests Test 08/16/18 14:00 08/16/18 14:45 08/17/18 07:11 Prothrombin Time 13.7 Prothrombin Time Ratio 1.1 INR International Normalized Ratio 1.04 Activated Partial Thromboplast Time 24.0 Sodium Level 147 H 149 H Potassium Level 3.5 3.8 Chloride Level 113 H 113 H Carbon Dioxide Level 26 30 Anion Gap 8 6 Blood Urea Nitrogen 32 H 28 H Creatinine 0.56 L 0.54 L Est Glomerular Filtrat Rate mL/min Glucose Level 93 128 Calcium Level 9.6 9.6 Thyroid Stimulating Hormone (TSH) 4.510 White Blood Count 2.6 L 3.1 L Red Blood Count 2.57 L 3.23 #L Hemoglobin 6.8 *L 9.1 #L Hematocrit 22.3 L 29.0 #L Mean Corpuscular Volume 86.8 89.8 Mean Corpuscular Hemoglobin 26.5 L 28.2 L Mean Corpuscular Hemoglobin Concent 30.5 L 31.4 L Red Cell Distribution Width 18.3 H 17.2 H Platelet Count 75 L 81 L Mean Platelet Volume 10.5 H Immature Granulocytes % 11.700 H 10.700 H Neutrophils % Segmented Neutrophils % (Manual) 44 Band Neutrophils % (Manual) 6 H Lymphocytes % Lymphocytes % (Manual) 35 Monocytes % Monocytes % (Manual) 6 Eosinophils % Basophils % Metamyelocytes % (manual) 2 H Myelocytes % (Manual) 1 H Promyelocytes % (Manual) 6 H Nucleated Red Blood Cells % 6 H 13.6 H Immature Granulocytes # 0.300 H 0.330 H Neutrophils # Neutrophils # (Manual) 1.1 L Band Neutrophils # 0.1 Lymphocytes (Manual) 0.9 Lymphocytes # Monocytes # Monocytes # (Manual) 0.1 L Eosinophils # Basophils # Metamyelocytes # 0.0 Myelocytes # 0.0 Promyelocytes # 0.1 H Nucleated Red Blood Cells # Platelet Estimate DECREASED Polychromasia 2+ Hypochromasia 3+ Poikilocytosis 1+ Anisocytosis 2+ Microcytosis 2+ Total Bilirubin 0.6 Direct Bilirubin 0.00 Indirect Bilirubin 0.6 Aspartate Amino Transf (AST/SGOT) 54 H Alanine Aminotransferase (ALT/SGPT) 16 Alkaline Phosphatase 248 H Creatine Kinase 248 H Creatine Kinase Index 1.5 Creatinine Kinase MB (Mass) 3.61 H Troponin I 0.016 Total Protein 5.8 L Albumin 2.9 L Globulin 2.90 Albumin/Globulin Ratio 1.00 Triglycerides Level 205 H Cholesterol Level 148 LDL Cholesterol, Calculated 75 HDL Cholesterol 32 Cholesterol/HDL Ratio 4.6 Prostate Specific Antigen > 1000.0 H Medications Medication Current Medications Dextrose/Sodium Chloride 1,000 ml @ 50 mls/hr Q20H IV Last administered on 08/16/18 20:17; Admin Dose 50 MLS/HR; Start 08/16/18 at 18:30 Miscellaneous Information [facility] This patient tabares... PRN PRN XX WOUND CARE; Start 08/16/18 at 20:00 Methenamine (Hiprex) 1 gm BID PO Last administered on 08/17/18 09:22; Admin Dose 1 GM; Start 08/16/18 at 21:00 Acetaminophen (Tylenol Tab) 500 mg Q4H PRN PO MILD PAIN(1-3)OR ELEVATED TEMP; Start 08/16/18 at 20:00 Ascorbic Acid (Vitamin C) 500 mg BID GTB Last administered on 08/17/18 09:22; Admin Dose 500 MG; Start 08/16/18 at 21:00 Zinc Sulfate (Zinc Sulfate) 220 mg DAILY PO Last administered on 08/17/18 09:22; Admin Dose 220 MG; Start 08/17/18 at 09:00 Prenat Multivit/ [place]/Iron/Folic Ac () 1 tab DAILY PO Last administered on 08/17/18 09:22; Admin Dose 1 TAB; Start 08/17/18 at 09:00 Bicalutamide (Casodex) 50 mg DAILY PO ; Start 08/17/18 at 09:00 Dutasteride (Avodart) 0.5 mg DAILY PO Last administered on 08/17/18 09:22; Admin Dose 0.5 MG; Start 08/17/18 at 09:00 KRYSTIN FU Aug 17, 2018 13:30
[2018-08-17] MEDS: DEXTROSE 5%-0.45% NACL 1,000 ML IV SCH ×2 (14:30→23:49)
--- NOTE | 2018-08-17 15:08 | CONS ---
Assessment/Plan Assessment/Plan Hospital Course (Demo Recall) IMPRESSION: 1. Abnormal electrocardiogram, assess for acute coronary syndrome.-neg trop x 2. NL EF by echo this admit 2. Cardiac arrhythmia at this time, most consistent with sinus arrhythmia.-mild tachycardia, sinus arrythmia. NL TSH 3. History of hypertension with per report hypotension at the end of the procedure. 4. Dysphagia, status post PEG placement today. 5. Failure to thrive. 6. History of prostate carcinoma. 7. History of aplastic anemia with ongoing anemia at this time. 8. Hypernatremia. 9. Prerenal state. 10. Pancytopenia. Recc: -Tele -serial ecg's -start BB to improve HR -follow Hgb closely and transfuse as necessary -free water for increased NA -Continue avodart Consultation Date/Type/Reason Admit Date/Time Aug 16, 2018 at 14:10 Initial Consult Date 08/17/18 Type of Consult Cardiology Reason for Consultation cardiac arrythmia Requesting Provider: SANIA WHITTINGTON MD Date/Time of Note DATE: 08/17/18 TIME: 15:04 Exam/Review of Systems Vital Signs Vitals Vital Signs Date Temp Pulse Resp B/P (MAP) Pulse Ox O2 O2 Flow FiO2 Time Delivery Rate 08/17/18 98.6 89 20 149/63 100 12:51 (91) 08/17/18 Nasal 2.0 09:00 Cannula Intake and Output 08/16/18 08/16/18 08/17/18 1515:00 23:00 07:00 IntakeIntake Total 730 ml OutputOutput Total 1 ml BalanceBalance 729 ml Exam Exam Review of Systems: CONSTITUTIONAL: No fevers, chills. PULMONARY: No sob CARDIOVASCULAR: No chest pain/palpitations GASTROINTESTINAL: No nausea/vomiting. GENITOURINARY: No hematuria/dysuria. MUSCULOSKELETAL: No myagias/arthalgias. PSYCHIATRIC: The patient denies depression. NEUROLOGIC: No weakness Constitutional: alert Psych: no complaints Head: normocephalic ENMT: mucosa pink and moist Neck: supple, jvd (9 cm water) Respiratory: diminished breath sounds (at bases/B) Cardiovascular: irregular rhythm (tachycardic) Gastrointestinal: other (G tube) Musculoskeletal: muscle weakness (generalized) Extremities: edema (none), other Neurological: confused Labs Result Diagram: 08/17/18 0711 08/17/18 0711 Results 24hrs Laboratory Tests Test 08/17/18 07:11 08/17/18 12:54 White Blood Count 3.1 L Red Blood Count 3.23 #L Hemoglobin 9.1 #L Hematocrit 29.0 #L Mean Corpuscular Volume 89.8 Mean Corpuscular Hemoglobin 28.2 L Mean Corpuscular Hemoglobin Concent 31.4 L Red Cell Distribution Width 17.2 H Platelet Count 81 L Mean Platelet Volume Immature Granulocytes % 10.700 H Neutrophils % Lymphocytes % Monocytes % Eosinophils % Basophils % Nucleated Red Blood Cells % 13.6 H Immature Granulocytes # 0.330 H Neutrophils # Lymphocytes # Monocytes # Eosinophils # Basophils # Nucleated Red Blood Cells # Sodium Level 149 H Potassium Level 3.8 Chloride Level 113 H Carbon Dioxide Level 30 Anion Gap 6 Blood Urea Nitrogen 28 H Creatinine 0.54 L Est Glomerular Filtrat Rate mL/min Glucose Level 128 Calcium Level 9.6 Total Bilirubin 0.6 Direct Bilirubin 0.00 Indirect Bilirubin 0.6 Aspartate Amino Transf (AST/SGOT) 54 H Alanine Aminotransferase (ALT/SGPT) 16 Alkaline Phosphatase 248 H Creatine Kinase 248 H 100 Creatine Kinase Index 1.5 2.5 Creatinine Kinase MB (Mass) 3.61 H 2.45 H Troponin I 0.016 < 0.012 Total Protein 5.8 L Albumin 2.9 L Globulin 2.90 Albumin/Globulin Ratio 1.00 Triglycerides Level 205 H Cholesterol Level 148 LDL Cholesterol, Calculated 75 HDL Cholesterol 32 Cholesterol/HDL Ratio 4.6 Prostate Specific Antigen > 1000.0 H Medications Medications Current Medications Dextrose/Sodium Chloride 1,000 ml @ 50 mls/hr Q20H IV Last administered on 08/16/18at 20:17; Admin Dose 50 MLS/HR; Start 08/16/18 at 18:30 Miscellaneous [facility] This patient tabares... PRN PRN XX WOUND CARE; Start 08/16/18 at 20:00 Methenamine (Hiprex) 1 gm BID PO Last administered on 08/17/18at 09:22; Admin Dose 1 GM; Start 08/16/18 at 21:00 Acetaminophen (Tylenol Tab) 500 mg Q4H PRN PO MILD PAIN(1-3)OR ELEVATED TEMP; Start 08/16/18 at 20:00 Ascorbic Acid (Vitamin C) 500 mg BID GTB Last administered on 08/17/18 09:22; Admin Dose 500 MG; Start 08/16/18 at 21:00 Zinc Sulfate (Zinc Sulfate) 220 mg DAILY PO Last administered on 08/17/18at 09 :22; Admin Dose 220 MG; Start 08/17/18 at 09:00 Prenat Multivit/ [place]/Iron/Folic Ac () 1 tab DAILY PO Last administered on 08/17/18 09:22; Admin Dose 1 TAB; Start 08/17/18 at 09:00 Bicalutamide (Casodex) 50 mg DAILY PO ; Start 08/17/18 at 09:00; Status Hold Dutasteride (Avodart) 0.5 mg DAILY PO Last administered on 08/17/18 09:22; Admin Dose 0.5 MG; Start 08/17/18 at 09:00 LUIS ALBERTO EDWARD Aug 17, 2018 15:08
[2018-08-17] MEDS ORDERED: LIDOCAINE 1% (MPF) 5 ML VIAL ONE (16:09)
[2018-08-17] MEDS: METOPROLOL 25 MG TAB PO SCH (20:52)
[2018-08-18] VITALS (10 sets, daily range): BP systolic 109–125; BP diastolic 56–63; PULSE 83–95; RESP 16–18
[2018-08-18] MEDS: DUTASTERIDE 0.5 MG CAP PO SCH (09:30)
[2018-08-18] MEDS: PRENATAL VITAMIN PO SCH (09:30)
[2018-08-18] MEDS: METHENAMINE 1 GM TAB PO SCH ×2 (09:30→20:20)
[2018-08-18] MEDS: METOPROLOL 25 MG TAB PO SCH ×2 (09:30→20:20)
[2018-08-18] MEDS: ZINC SULFATE 220 MG CAP PO SCH (09:30)
[2018-08-18] MEDS: ASCORBIC ACID 500 MG TAB GTB SCH ×2 (09:30→20:20)
--- NOTE | 2018-08-18 10:25 | CONS ---
Consult Date/Type/Reason Admit Date/Time Aug 16, 2018 at 14:10 Initial Consult Date 08/17/18 Requesting Provider: SANIA WHITTINGTON MD Date/Time of Note DATE: 08/18/18 TIME: 10:23 Subjective NO acute events - con't rev isolation - no ectopy on tele - BP stable. ROS: No fever, no chills, no nausea, no vomiting, no diarrhea/constipation Objective Vitals Vital Signs Date Temp Pulse Resp B/P (MAP) Pulse Ox O2 O2 Flow FiO2 Time Delivery Rate 08/18/18 95 08:00 08/18/18 98.0 18 125/59 99 Nasal 07:26 (81) Cannula 08/18/18 3.0 01:02 Intake and Output 08/17/18 08/17/18 08/18/18 1515:00 23:00 07:00 IntakeIntake Total 340 ml 1390 ml OutputOutput Total 1900 ml BalanceBalance -1560 ml 1390 ml Exam General: thinWD/NAD, AOx comfortable HEENT: Unicetric/atraumatic/EOMI (does not follow commands) NECK: JVD elevated, no thyromegaly Lymph: no lymphadenopathy HEART: regular with no S3, II/ systolic murmur at apex LUNGS: Coarse sounds ABD: soft, NT, ND, +BS : Intact Neuro: non focal SKIN: chronic changes EXT: trace edema Results/Medications Result Diagram: 08/18/18 0732 08/18/18 0732 Results 24 hrs Laboratory Tests Test 08/17/18 12:54 08/17/18 16:20 08/17/18 17:22 08/18/18 07:32 Creatine Kinase 100 107 Creatine Kinase 2.5 2.3 Index Creatinine Kinase 2.45 H 2.41 H MB (Mass) Troponin I < 0.012 < 0.012 Body Fluid Type THORACENTHESIS Body Fluid Volume 1050.0 Body Fluid Color PREETI Body Fluid HAZY Appearance Body Fluid WBC 89 Body Fluid RBC 2000 (Auto) Body Fluid 6.8 Polynuclear WBCs (%) Body Fluid 93.2 Mononuclear Cells % Auto Body Fluid Glucose 127 Body Fluid Total 3.2 Protein Body Fluid 499 Lactate Dehydrogen ase White Blood Count 2.9 L Red Blood Count 3.00 L Hemoglobin 8.5 L Hematocrit 26.3 L Mean Corpuscular 87.7 Volume Mean Corpuscular 28.3 L Hemoglobin Mean Corpuscular 32.3 Hemoglobin Concent Red Cell 17.4 H Distribution Width Platelet Count 70 L Mean Platelet 10.9 H Volume Immature 7.500 H Granulocytes % Neutrophils % 53.2 Lymphocytes % 29.8 Monocytes % 8.2 Eosinophils % 0.3 Basophils % 1.0 Nucleated Red 11.6 H Blood Cells % Immature 0.220 H Granulocytes # Neutrophils # 1.6 Lymphocytes # 0.9 Monocytes # 0.2 L Eosinophils # 0.0 Basophils # 0.0 Nucleated Red 0.3 H Blood Cells # Sodium Level 144 Potassium Level 3.4 L Chloride Level 112 H Carbon Dioxide 28 Level Anion Gap 4 L Blood Urea 26 H Nitrogen Creatinine 0.47 L Est Glomerular Filtrat Rate mL/min Glucose Level 128 Calcium Level 8.9 Home Meds Reported Medications [Pomi-T] No Conflict Check 08/16/18 Multivitamin/Iron/Folic Acid (Centrum Adults Tablet) 1 Each Tablet, 1 EACH PO, TAB 08/16/18 Dutasteride* (Avodart*) 0.5 Mg Capsule, 0.5 MG PO DAILY, CAP 08/16/18 Bicalutamide* (Bicalutamide*) 50 Mg Tablet, 50 MG PO DAILY, TAB 08/16/18 Sodium Chloride (Sodium Chloride) 1 Gm Granules, 1 GM MC 08/16/18 Vitamin E* (Vitamin E*) 200 Unit Capsule, 180 MG PO DAILY, CAP 08/16/18 Folic Acid* (Folic Acid*) 1 Mg Tablet, 1 MG PO DAILY, TAB 08/16/18 Memantine* (Namenda* XR) 28 Mg Cap.spr.24, 28 MG PO DAILY, #30 TAB 08/16/18 Tamsulosin Hcl* (Flomax*) 0.4 Mg Cap.er.24h, 0.4 MG PO DAILY, CAP 08/16/18 Nitrofurantoin Monohyd Macrocr* (Macrobid*) 100 Mg Capsr, 100 MG PO BID, CAP 08/16/18 Medications Current Medications Dextrose/Sodium Chloride 1,000 ml @ 50 mls/hr Q20H IV Last administered on 08/17/18at 23:49; Admin Dose 50 MLS/HR; Start 08/16/18 at 18:30 [facility] This patient tabares... PRN PRN XX WOUND CARE; Start 08/16/18 at 20:00 Methenamine (Hiprex) 1 gm BID PO Last administered on 08/18/18 09:30; Admin Dose 1 GM; Start 08/16/18 at 21:00 Acetaminophen (Tylenol Tab) 500 mg Q4H PRN PO MILD PAIN(1-3)OR ELEVATED TEMP; Start 08/16/18 at 20:00 Ascorbic Acid (Vitamin C) 500 mg BID GTB Last administered on 08/18/18 09:30; Admin Dose 500 MG; Start 08/16/18 at 21:00 Zinc Sulfate (Zinc Sulfate) 220 mg DAILY PO Last administered on 08/18/18 09:30; Admin Dose 220 MG; Start 08/17/18 at 09:00 Prenat Multivit/ [place]/Iron/Folic Ac () 1 tab DAILY PO Last administered on 08/18/18 09:30; Admin Dose 1 TAB; Start 08/17/18 at 09:00 Bicalutamide (Casodex) 50 mg DAILY PO ; Start 08/17/18 at 09:00; Status Hold Dutasteride (Avodart) 0.5 mg DAILY PO Last administered on 08/18/18 09:30; Admin Dose 0.5 MG; Start 08/17/18 at 09:00 Metoprolol Tartrate (Lopressor) 25 mg BID PO Last administered on 08/18/18 09:30; Admin Dose 25 MG; Start 08/17/18 at 21:00 Assessment/Plan Hospital Course (Demo Recall) 1. Abnormal electrocardiogram, assess for acute coronary syndrome.-neg trop x 2. NL EF by echo this admi - r/o SD, no interbention currently planned. 2. Cardiac arrhythmia at this time, most consistent with sinus arrhythmia.-mild tachycardia, sinus arrythmia. NL TSH - HR better overall. OK to hydrate as needed. 3. History of hypertension with per report hypotension at the end of the procedure. Better now. 4. Dysphagia, status post PEG - GO follows. 5. Failure to thrive. 6. History of prostate carcinoma. 7. History of aplastic anemia with ongoing anemia at this time - no active bleeding now. 8. Hypernatremia. 9. Prerenal state. 10. Pancytopenia. JANETT RAMIREZ MD Aug 18, 2018 10:25
[2018-08-18] MEDS ORDERED: POTASSIUM CHLORIDE (SR) 20 MEQ TAB PO STA (14:04)
--- NOTE | 2018-08-18 14:06 | PN ---
Date/Time of Note Date/Time of Note DATE: 08/18/18 TIME: 13:52 Assessment/Plan VTE Pro[place]axis [place] [facility]: 8 [place] [facility] Yes Pharmacological prophylaxis: other Pharm contraindication: other Lines/Catheters IV Catheter Type (from [facility]): Peripheral IV Urinary Cath still in place: No Assessment/Plan Assessment/Plan - Hypokalemia- K Replaced - am BMP - Dysphagia status post PEG placement today. - sp G-J replaced - per GI - ASPIRATION precautions - Cachexia 2/2 Malnutrition and Failure to thrive. 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 - Pancytopenia 2/2 to above - per Hem/Onc consult - Hypernatremia. - Prerenal state - nephrology consult appreciated if no improvement -Stage 1 - sacrococcyx - wound care consult - wound care - dietary consult - Stage 1 - heels - wound carre consult - wound care - dietary consult - SCD for DVT prophylaxis - PROTONIX fro GI prophylaxis Patient seen in collaboration with Dr Malin. Júnior staff. Júnior Conrad( Son) Result Diagram: 08/18/18 0732 08/18/18 0732 Results 24hrs Laboratory Tests Test 08/17/18 16:20 08/17/18 17:22 08/18/18 07:32 Body Fluid Type THORACENTHESIS Body Fluid Volume 1050.0 Body Fluid Color PREETI Body Fluid Appearance HAZY Body Fluid WBC 89 Body Fluid RBC (Auto) 2000 Body Fluid Polynuclear WBCs (%) 6.8 Body Fluid Mononuclear Cells % 93.2 Auto Body Fluid Glucose 127 Body Fluid Total Protein 3.2 Body Fluid Lactate Dehydrogenase 499 Creatine Kinase 107 Creatine Kinase Index 2.3 Creatinine Kinase MB (Mass) 2.41 H Troponin I < 0.012 White Blood Count 2.9 L Red Blood Count 3.00 L Hemoglobin 8.5 L Hematocrit 26.3 L Mean Corpuscular Volume 87.7 Mean Corpuscular Hemoglobin 28.3 L Mean Corpuscular 32.3 Hemoglobin Concent Red Cell Distribution Width 17.4 H Platelet Count 70 L Mean Platelet Volume 10.9 H Immature Granulocytes % 7.500 H Neutrophils % 53.2 Segmented Neutrophils % (Manual) 43 Band Neutrophils % (Manual) 9 H Lymphocytes % 29.8 Lymphocytes % (Manual) 41 Monocytes % 8.2 Monocytes % (Manual) 6 Eosinophils % 0.3 Basophils % 1.0 Promyelocytes % (Manual) 1 H Nucleated Red Blood Cells % 14 H Immature Granulocytes # 0.220 H Neutrophils # 1.6 Neutrophils # (Manual) 1.3 L Band Neutrophils # 0.2 Lymphocytes (Manual) 1.1 Lymphocytes # 0.9 Monocytes # 0.2 L Monocytes # (Manual) 0.1 L Eosinophils # 0.0 Basophils # 0.0 Promyelocytes # 0.0 Nucleated Red Blood Cells # 0.3 H Toxic Granulation 1+ Platelet Estimate DECREASED Polychromasia 3+ Poikilocytosis 3+ Anisocytosis 3+ Microcytosis 3+ Macrocytosis 2+ Sodium Level 144 Potassium Level 3.4 L Chloride Level 112 H Carbon Dioxide Level 28 Anion Gap 4 L Blood Urea Nitrogen 26 H Creatinine 0.47 L Est Glomerular Filtrat Rate mL/min Glucose Level 128 Calcium Level 8.9 Subjective 24 Hr Interval Summary Free Text/Dictation nad resting; seems comfortable hgb stable-9.1 today Family at bed side- all Qs answered -no new issue reported last night per staff Constitutional: requiring IVF, requiring O2 Exam/Review of Systems Exam Vitals Vital Signs Date Temp Pulse Resp B/P (MAP) Pulse Ox O2 O2 Flow FiO2 Time Delivery Rate 08/18/18 84 12:00 08/18/18 98.2 16 115/63 97 Nasal 11:09 (80) Cannula 08/18/18 3.0 08:30 Intake and Output 08/17/18 08/17/18 08/18/18 1515:00 23:00 07:00 IntakeIntake Total 340 ml 1390 ml OutputOutput Total 1900 ml BalanceBalance -1560 ml 1390 ml Constitutional: alert Psych: nl mood/affect Eyes: nl lids, nl sclera Neck: non-tender Respiratory: clear to auscultation Cardiovascular: nl pulses, other Gastrointestinal: soft, non-tender, other Musculoskeletal: joint tenderness, muscle weakness, range of motion Extremities: normal pulses Neurological: confused Lymph: nontender Results Results 24hrs Laboratory Tests Test 08/17/18 16:20 08/17/18 17:22 08/18/18 07:32 Body Fluid Type THORACENTHESIS Body Fluid Volume 1050.0 Body Fluid Color PREETI Body Fluid Appearance HAZY Body Fluid WBC 89 Body Fluid RBC (Auto) 2000 Body Fluid Polynuclear WBCs (%) 6.8 Body Fluid Mononuclear Cells % 93.2 Auto Body Fluid Glucose 127 Body Fluid Total Protein 3.2 Body Fluid Lactate Dehydrogenase 499 Creatine Kinase 107 Creatine Kinase Index 2.3 Creatinine Kinase MB (Mass) 2.41 H Troponin I < 0.012 White Blood Count 2.9 L Red Blood Count 3.00 L Hemoglobin 8.5 L Hematocrit 26.3 L Mean Corpuscular Volume 87.7 Mean Corpuscular Hemoglobin 28.3 L Mean Corpuscular 32.3 Hemoglobin Concent Red Cell Distribution Width 17.4 H Platelet Count 70 L Mean Platelet Volume 10.9 H Immature Granulocytes % 7.500 H Neutrophils % 53.2 Segmented Neutrophils % (Manual) 43 Band Neutrophils % (Manual) 9 H Lymphocytes % 29.8 Lymphocytes % (Manual) 41 Monocytes % 8.2 Monocytes % (Manual) 6 Eosinophils % 0.3 Basophils % 1.0 Promyelocytes % (Manual) 1 H Nucleated Red Blood Cells % 14 H Immature Granulocytes # 0.220 H Neutrophils # 1.6 Neutrophils # (Manual) 1.3 L Band Neutrophils # 0.2 Lymphocytes (Manual) 1.1 Lymphocytes # 0.9 Monocytes # 0.2 L Monocytes # (Manual) 0.1 L Eosinophils # 0.0 Basophils # 0.0 Promyelocytes # 0.0 Nucleated Red Blood Cells # 0.3 H Toxic Granulation 1+ Platelet Estimate DECREASED Polychromasia 3+ Poikilocytosis 3+ Anisocytosis 3+ Microcytosis 3+ Macrocytosis 2+ Sodium Level 144 Potassium Level 3.4 L Chloride Level 112 H Carbon Dioxide Level 28 Anion Gap 4 L Blood Urea Nitrogen 26 H Creatinine 0.47 L Est Glomerular Filtrat Rate mL/min Glucose Level 128 Calcium Level 8.9 Medications Medication Current Medications Dextrose/Sodium Chloride 1,000 ml @ 50 mls/hr Q20H IV Last administered on 08/17/18at 23:49; Admin Dose 50 MLS/HR; Start 08/16/18 at 18:30 Miscellaneous Information (Pending [facility] Order For Wound Care) This patient tabares... PRN PRN XX WOUND CARE; Start 08/16/18 at 20:00 Methenamine (Hiprex) 1 gm BID PO Last administered on 08/18/18 09:30; Admin Dose 1 GM; Start 08/16/18 at 21:00 Acetaminophen (Tylenol Tab) 500 mg Q4H PRN PO MILD PAIN(1-3)OR ELEVATED TEMP; Start 08/16/18 at 20:00 Ascorbic Acid (Vitamin C) 500 mg BID GTB Last administered on 08/18/18 09:30; Admin Dose 500 MG; Start 08/16/18 at 21:00 Zinc Sulfate (Zinc Sulfate) 220 mg DAILY PO Last administered on 08/18/18 09:30; Admin Dose 220 MG; Start 08/17/18 at 09:00 Prenat Multivit/ [place]/Iron/Folic Ac () 1 tab DAILY PO Last administered on 08/18/18 09:30; Admin Dose 1 TAB; Start 08/17/18 at 09:00 Bicalutamide (Casodex) 50 mg DAILY PO ; Start 08/17/18 at 09:00; Status Hold Dutasteride (Avodart) 0.5 mg DAILY PO Last administered on 08/18/18 09:30; Admin Dose 0.5 MG; Start 08/17/18 at 09:00 Metoprolol Tartrate (Lopressor) 25 mg BID PO Last administered on 08/18/18 09:30; Admin Dose 25 MG; Start 08/17/18 at 21:00 VIRY CASTILLO Aug 18, 2018 14:02
--- NOTE | 2018-08-18 15:49 | CONS ---
Assessment/Plan Assessment/Plan Hospital Course (Demo Recall) 87 yo male with prostate cancer with possible bone mets presents with failure to thrive and malnutrition. S/P PEG 08/[address] Mendez 1. Malnutrition. 2. Failure to thrive. 3. Alzheimer disease. 4. 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 5. Hypertension. PLAN: Phos in am Check residuals q 6 hours, hold for residuals greater than 50cc Flush [id number] water q 6 hours Titrate tube feeds slowly to prevent refeeding syndrome, titrate up to 30cc/hr Monitor electrolytes for refeeding syndrome Continue with erythromycin Abdominal binder Continue with IV hydration until pt is at goal Pt examined and plan of care discussed with Dr. Mendez Consultation Date/Type/Reason Admit Date/Time Aug 16, 2018 at 14:10 Initial Consult Date Requesting Provider: SANIA WHITTINGTON MD Date/Time of Note DATE: 08/18/18 TIME: 15:46 Exam/Review of Systems Exam Vitals Vital Signs Date Temp Pulse Resp B/P (MAP) Pulse Ox O2 O2 Flow FiO2 Time Delivery Rate 08/18/18 84 12:00 08/18/18 98.2 16 115/63 97 Nasal 11:09 (80) Cannula 08/18/18 3.0 08:30 Intake and Output 08/17/18 08/17/18 08/18/18 1515:00 23:00 07:00 IntakeIntake Total 340 ml 1390 ml OutputOutput Total 1900 ml BalanceBalance -1560 ml 1390 ml Constitutional: other (sleeping, did not waken when I examined abdomen) Head: normocephalic ENMT: mucosa pink and moist Respiratory: normal air movement Cardiovascular: regular rate and rhythm Gastrointestinal: soft, non-tender Musculoskeletal: other (cachexia) Extremities: normal pulses Results Result Diagram: 08/18/18 0732 08/18/18 0732 Results 24hrs Laboratory Tests Test 08/17/18 16:20 08/17/18 17:22 08/18/18 07:32 Body Fluid Type THORACENTHESIS Body Fluid Volume 1050.0 Body Fluid Color PREETI Body Fluid Appearance HAZY Body Fluid WBC 89 Body Fluid RBC (Auto) 2000 Body Fluid Polynuclear WBCs (%) 6.8 Body Fluid Mononuclear Cells % 93.2 Auto Body Fluid Glucose 127 Body Fluid Total Protein 3.2 Body Fluid Lactate Dehydrogenase 499 Creatine Kinase 107 Creatine Kinase Index 2.3 Creatinine Kinase MB (Mass) 2.41 H Troponin I < 0.012 White Blood Count 2.9 L Red Blood Count 3.00 L Hemoglobin 8.5 L Hematocrit 26.3 L Mean Corpuscular Volume 87.7 Mean Corpuscular Hemoglobin 28.3 L Mean Corpuscular 32.3 Hemoglobin Concent Red Cell Distribution Width 17.4 H Platelet Count 70 L Mean Platelet Volume 10.9 H Immature Granulocytes % 7.500 H Neutrophils % 53.2 Segmented Neutrophils % (Manual) 43 Band Neutrophils % (Manual) 9 H Lymphocytes % 29.8 Lymphocytes % (Manual) 41 Monocytes % 8.2 Monocytes % (Manual) 6 Eosinophils % 0.3 Basophils % 1.0 Promyelocytes % (Manual) 1 H Nucleated Red Blood Cells % 14 H Immature Granulocytes # 0.220 H Neutrophils # 1.6 Neutrophils # (Manual) 1.3 L Band Neutrophils # 0.2 Lymphocytes (Manual) 1.1 Lymphocytes # 0.9 Monocytes # 0.2 L Monocytes # (Manual) 0.1 L Eosinophils # 0.0 Basophils # 0.0 Promyelocytes # 0.0 Nucleated Red Blood Cells # 0.3 H Toxic Granulation 1+ Platelet Estimate DECREASED Polychromasia 3+ Poikilocytosis 3+ Anisocytosis 3+ Microcytosis 3+ Macrocytosis 2+ Sodium Level 144 Potassium Level 3.4 L Chloride Level 112 H Carbon Dioxide Level 28 Anion Gap 4 L Blood Urea Nitrogen 26 H Creatinine 0.47 L Est Glomerular Filtrat Rate mL/min Glucose Level 128 Calcium Level 8.9 Medications Medication Current Medications Dextrose/Sodium Chloride 1,000 ml @ 50 mls/hr Q20H IV Last administered on 08/17/18at 23:49; Admin Dose 50 MLS/HR; Start 08/16/18 at 18:30 Miscellaneous [facility] This patient tabares... PRN PRN XX WOUND CARE; Start 08/16/18 at 20:00 Methenamine (Hiprex) 1 gm BID PO Last administered on 08/18/18at 09:30; Admin Dose 1 GM; Start 08/16/18 at 21:00 Acetaminophen (Tylenol Tab) 500 mg Q4H PRN PO MILD PAIN(1-3)OR ELEVATED TEMP; Start 08/16/18 at 20:00 Ascorbic Acid (Vitamin C) 500 mg BID GTB Last administered on 08/18/18 09:30; Admin Dose 500 MG; Start 08/16/18 at 21:00 Zinc Sulfate (Zinc Sulfate) 220 mg DAILY PO Last administered on 08/18/18 09:30; Admin Dose 220 MG; Start 08/17/18 at 09:00 Prenat Multivit/ [place]/Iron/Folic Ac () 1 tab DAILY PO Last administered on 08/18/18 09:30; Admin Dose 1 TAB; Start 08/17/18 at 09:00 Bicalutamide (Casodex) 50 mg DAILY PO ; Start 08/17/18 at 09:00; Status Hold Dutasteride (Avodart) 0.5 mg DAILY PO Last administered on 08/18/18 09:30; Admin Dose 0.5 MG; Start 08/17/18 at 09:00 Metoprolol Tartrate (Lopressor) 25 mg BID PO Last administered on 08/18/18 09:30; Admin Dose 25 MG; Start 08/17/18 at 21:00 Fish Oil (Fish Oil) 1,000 mg BID PO ; Start 08/18/18 at 14:00 ADRIEL DELCID Aug 18, 2018 15:49
[2018-08-18] MEDS: FISH OIL 1,000 MG CAP PO SCH ×2 (17:46→20:20)
[2018-08-18] MEDS: DEXTROSE 5%-0.45% NACL 1,000 ML IV SCH (20:16)
--- NOTE | 2018-08-18 22:09 | CONS ---
Consult Date/Type/Reason Admit Date/Time Aug 16, 2018 at 14:10 Initial Consult Date 08/17/18 Type of Consultation: Pulm Requesting Provider: SANIA WHITTINGTON MD Date/Time of Note DATE: 08/18/18 TIME: 22:06 Subjective s/p right thoracentesis x 2 L --> lymphocytic predominant exudate Objective Vitals Vital Signs Date Temp Pulse Resp B/P (MAP) Pulse Ox O2 O2 Flow FiO2 Time Delivery Rate 08/18/18 Nasal 3.0 20:01 Cannula 08/18/18 90 20:00 08/18/18 97.5 17 113/56 100 20:00 (75) Intake and Output 08/17/18 08/17/18 08/18/18 1515:00 23:00 07:00 IntakeIntake Total 340 ml 1390 ml OutputOutput Total 1900 ml BalanceBalance -1560 ml 1390 ml Exam HEENT: Neck supple; no JVD; no LAD CVS: RRR, S1 and S2 CHEST: Decreased BS at bases b/l ABD: Soft, NT, + BS EXT: No c/c/e Results/Medications Result Diagram: 08/18/18 0732 08/18/18 0732 Results 24 hrs Laboratory Tests Test 08/18/18 07:32 White Blood Count 2.9 L Red Blood Count 3.00 L Hemoglobin 8.5 L Hematocrit 26.3 L Mean Corpuscular Volume 87.7 Mean Corpuscular Hemoglobin 28.3 L Mean Corpuscular Hemoglobin Concent 32.3 Red Cell Distribution Width 17.4 H Platelet Count 70 L Mean Platelet Volume 10.9 H Immature Granulocytes % 7.500 H Neutrophils % 53.2 Segmented Neutrophils % (Manual) 43 Band Neutrophils % (Manual) 9 H Lymphocytes % 29.8 Lymphocytes % (Manual) 41 Monocytes % 8.2 Monocytes % (Manual) 6 Eosinophils % 0.3 Basophils % 1.0 Promyelocytes % (Manual) 1 H Nucleated Red Blood Cells % 14 H Immature Granulocytes # 0.220 H Neutrophils # 1.6 Neutrophils # (Manual) 1.3 L Band Neutrophils # 0.2 Lymphocytes (Manual) 1.1 Lymphocytes # 0.9 Monocytes # 0.2 L Monocytes # (Manual) 0.1 L Eosinophils # 0.0 Basophils # 0.0 Promyelocytes # 0.0 Nucleated Red Blood Cells # 0.3 H Toxic Granulation 1+ Platelet Estimate DECREASED Polychromasia 3+ Poikilocytosis 3+ Anisocytosis 3+ Microcytosis 3+ Macrocytosis 2+ Sodium Level 144 Potassium Level 3.4 L Chloride Level 112 H Carbon Dioxide Level 28 Anion Gap 4 L Blood Urea Nitrogen 26 H Creatinine 0.47 L Est Glomerular Filtrat Rate mL/min Glucose Level 128 Calcium Level 8.9 Home Meds Reported Medications [Pomi-T] No Conflict Check 08/16/18 Multivitamin/Iron/Folic Acid (Centrum Adults Tablet) 1 Each Tablet, 1 EACH PO, TAB 08/16/18 Dutasteride* (Avodart*) 0.5 Mg Capsule, 0.5 MG PO DAILY, CAP 08/16/18 Bicalutamide* (Bicalutamide*) 50 Mg Tablet, 50 MG PO DAILY, TAB 08/16/18 Sodium Chloride (Sodium Chloride) 1 Gm Granules, 1 GM MC 08/16/18 Vitamin E* (Vitamin E*) 200 Unit Capsule, 180 MG PO DAILY, CAP 08/16/18 Folic Acid* (Folic Acid*) 1 Mg Tablet, 1 MG PO DAILY, TAB 08/16/18 Memantine* (Namenda* XR) 28 Mg Cap.spr.24, 28 MG PO DAILY, #30 TAB 08/16/18 Tamsulosin Hcl* (Flomax*) 0.4 Mg Cap.er.24h, 0.4 MG PO DAILY, CAP 08/16/18 Nitrofurantoin Monohyd Macrocr* (Macrobid*) 100 Mg Capsr, 100 MG PO BID, CAP 08/16/18 Medications Current Medications Dextrose/Sodium Chloride 1,000 ml @ 50 mls/hr Q20H IV Last administered on 08/18/18at 20:16; Admin Dose 50 MLS/HR; Start 08/16/18 at 18:30 [facility] This patient tabares... PRN PRN XX WOUND CARE; Start 08/16/18 at 20:00 Methenamine (Hiprex) 1 gm BID PO Last administered on 08/18/18at 20:20; Admin Dose 1 GM; Start 08/16/18 at 21:00 Acetaminophen (Tylenol Tab) 500 mg Q4H PRN PO MILD PAIN(1-3)OR ELEVATED TEMP; Start 08/16/18 at 20:00 Ascorbic Acid (Vitamin C) 500 mg BID GTB Last administered on 08/18/18 20:20; Admin Dose 500 MG; Start 08/16/18 at 21:00 Zinc Sulfate (Zinc Sulfate) 220 mg DAILY PO Last administered on 08/18/18 09:30; Admin Dose 220 MG; Start 08/17/18 at 09:00 Prenat Multivit/ [place]/Iron/Folic Ac () 1 tab DAILY PO Last administered on 08/18/18 09:30; Admin Dose 1 TAB; Start 08/17/18 at 09:00 Bicalutamide (Casodex) 50 mg DAILY PO ; Start 08/17/18 at 09:00; Status Hold Dutasteride (Avodart) 0.5 mg DAILY PO Last administered on 08/18/18 09:30; Admin Dose 0.5 MG; Start 08/17/18 at 09:00 Metoprolol Tartrate (Lopressor) 25 mg BID PO Last administered on 08/18/18 20:20; Admin Dose 25 MG; Start 08/17/18 at 21:00 Fish Oil (Fish Oil) 1,000 mg BID PO Last administered on 08/18/18 20:20; Admin Dose 1,000 MG; Start 08/18/18 at 14:00 Assessment/Plan Assessment/Plan (Daily) IMP: 1. Lymphocytic predominant exudative right pleural effusion--likely malignant 2. Hematogenous pulmonary nodules--likely metastatic 3. Prostate ca RECS: 1. Follow-up pleural fluid cytology. Although not rare, pleural and pulmonary mets are not commonly seen with metastatic prostate cancer. Will await pleural fluid cytology. VLADIMIR AGGARWAL MD Aug 18, 2018 22:09
[2018-08-19] VITALS (59 sets, daily range): BP systolic 66–123; BP diastolic 35–94; PULSE 87–175; RESP 15–33
[2018-08-19] MEDS: PRENATAL VITAMIN PO SCH (09:45)
[2018-08-19] MEDS: ZINC SULFATE 220 MG CAP PO SCH (09:45)
[2018-08-19] MEDS: DUTASTERIDE 0.5 MG CAP PO SCH (09:46)
[2018-08-19] MEDS: ASCORBIC ACID 500 MG TAB GTB SCH ×2 (09:46→21:11)
[2018-08-19] MEDS: METOPROLOL 25 MG TAB PO SCH ×2 (09:46→21:00)
[2018-08-19] MEDS: METHENAMINE 1 GM TAB PO SCH ×2 (09:46→21:12)
[2018-08-19] MEDS: FISH OIL 1,000 MG CAP PO SCH ×2 (09:55→21:11)
[2018-08-19] MEDS ORDERED: SOD CHLORIDE 0.9% 500 ML IV ONE (10:30)
--- NOTE | 2018-08-19 10:41 | EN ---
Date/Time of Note Date/Time of Note DATE: 08/19/18 TIME: 10:41 Event Note Medicine Medicine Event Note Patient is a elderly male with metastatic prostate cancer who originally presented to [facility] for PEG placement due to failure to thrive. Patient had multiple issues after PEG placement including a pleural effusion. Patient's mental status continued to decline, this morning patient was not alert however his respiratory status was unchanged from the previous days. Suddenly patient began to have respiratory distress and JIG BUILDER was called. Upon evaluation. Patient was at baseline mentation of not being able to be alert however patient's blood pressure was hypotensive and respiratory status showed hypoxia. Multiple things were immediately ordered including BiPAP, ABG, chest x-ray, troponin, conference of metabolic panel, EKG, CT angiogram of the chest due to possible PE, fluid bolus for hypotension will continue to follow and attempt to stabilize patient until primary care provider could see patient. More than 40 minutes of critical care time was spent on this evaluation. Patient will be sent to the ICU MATT CALIX Aug 19, 2018 10:41
[2018-08-19] MEDS ORDERED: NORepinephrine 8MG/250 ML (PMX 250 ML ONE (10:59)
[2018-08-19] MEDS ORDERED: NORepinephrine 8MG/250 ML (PMX 250 ML IV SCH (11:00)
[2018-08-19] MEDS ORDERED: SOD CHLORIDE 0.9% 250 ML IV* ONE (11:45)
[2018-08-19] MEDS ORDERED: PHENYLephrine 20MG IN 250 ML 250 ML IV SCH (12:00)
[2018-08-19] MEDS ORDERED: LACTATED RINGER'S 500 ML IV ONE ×3 (12:00→14:30)
[2018-08-19] MEDS ORDERED: SODIUM PHOSPHATE 20 MEQ in SOD CHLORIDE 0.9% 250 ML IVPB ONE (12:00)
[2018-08-19] MEDS ORDERED: PIPER-TAZO 3.375 GM IV (PMX) 100 ML IVPB SCH (12:00)
--- NOTE | 2018-08-19 12:03 | QN ---
Documentation Comment EM note for intubation: This is an 87-year-old gentleman with respiratory decompensation despite BiPAP therapy, I was called to intubate. Patient's nurse stated his oxygen saturation has not gone up despite BiPAP therapy and he has continued respiratory distress. A chest x-ray was performed just prior to my evaluation that revealed complete left lung opacification and right middle lobe infiltrate large left hemithorax. Endotracheal Intubation by me: Pre assessment performed. Pre-oxygenation performed with 100% oxygen RSI: Performed w/o complication or hypoxic events. Medications included succinylcholine IV for paralysis although patient was already sedated. Blade: 4.0 Bon ET Tube: 7.5 cm Depth: 22 cm at the lip Intubation confirmed by colorimetric CO2, equal breath sounds, quiet over the stomach. Chest X-ray 1V Interpreted by me: Reveals ET tube above the mahesh and again complete opacification and and effusion to the left lung with right middle lobe infiltrate and small right pneumothorax. The patient's pneumothorax is at least a contributing factor to the patient's recent dyspnea and may be 1 of the reasons patient is not tolerating BiPAP. The patient does have multiple serious underlying medical conditions and he is critical at this time and has a overall poor prognosis given his multiple medical conditions. His PMD already ordered a CTA of the chest prior to intubation so those results are pending and I will defer any further int ervention, continued sedation orders, imaging, or treatment to PMD after discussion with his family members who were at the bedside. MATT HARO MD Aug 19, 2018 12:03
--- NOTE | 2018-08-19 12:11 | CONS ---
Assessment/Plan Assessment/Plan Hospital Course (Demo Recall) 87 yo male with prostate cancer with possible bone mets presents with failure to thrive and malnutrition. S/P PEG 08/[address] 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 Intubated for respiratory distress. Decline in mental status. CXR shows rt pneumothorax. Transferred to ICU. Tachycardic in 150s. chest tube placed. Central line is being placed so I was not able to examine him. tube feeds on hold. 1. Malnutrition. 2. Failure to thrive. 3. Alzheimer disease. 4. 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 5. Hypertension. 6. Resp distress 7. Encephalopathy 8. Anemia with downward trend -anemia work up 9. Rt pneumothorax CXR 08/19 am: IMPRESSION: 1. New small right pneumothorax. Critical findings were discussed with patient's nurse, Tori, on 08/19/2018 11:15:53 AM. Recommend close interval follow-up chest radiograph. 2. Interval satisfactory intubation. 3. No significant change in complete opacification of the left hemithorax, likely representing combination of collapsed lung and pleural effusion. 4. Small right pleural effusion with adjacent right basilar opacity, representing atelectasis versus pneumonia. PLAN: FOB, anemia work up Check residuals q 6 hours, hold for residuals greater than 50cc Flush [id number] water q 6 hours Titrate tube feeds slowly to prevent refeeding syndrome, titrate up to 30cc/hr Monitor electrolytes for refeeding syndrome Continue with erythromycin Abdominal binder Continue with IV hydration until pt is at goal Pt examined and plan of care discussed with Dr. Mendez Consultation Date/Type/Reason Admit Date/Time Aug 16, 2018 at 14:10 Initial Consult Date Requesting Provider: SANIA WHITTINGTON MD Date/Time of Note DATE: 08/19/18 TIME: 12:05 Exam/Review of Systems Exam Vitals Vital Signs Date Temp Pulse Resp B/P (MAP) Pulse Ox O2 O2 Flow FiO2 Time Delivery Rate 08/19/18 100 12:00 08/19/18 98.5 122 20 95/62 (73) 96 11:17 08/19/18 Nasal 4.0 08:00 Cannula Intake and Output 08/18/18 08/18/18 08/19/18 1515:00 23:00 07:00 IntakeIntake Total 1340 ml 510 ml OutputOutput Total 1 ml BalanceBalance 1340 ml 509 ml Results Result Diagram: 08/19/18 0613 08/19/18 0613 Results 24hrs Laboratory Tests Test 08/19/18 06:13 08/19/18 07:50 08/19/18 10:23 08/19/18 10:29 White Blood 2.6 L Count Red Blood Count 2.77 L Hemoglobin 7.8 L Hematocrit 24.3 L Mean Corpuscular 87.7 Volume Mean Corpuscular 28.2 L Hemoglobin Mean Corpuscular 32.1 Hemoglobin Glenny nt Red Cell 17.6 H Distribution Width Platelet Count 63 L Mean Platelet Volume Immature 6.100 H Granulocytes % Neutrophils % Segmented 47 Neutrophils % (Manual) Band Neutrophils 6 H % (Manual) Lymphocytes % Lymphocytes % 33 (Manual) Reactive 4 H Lymphocytes % (Manual) Monocytes % Monocytes % 2 (Manual) Eosinophils % Basophils % Metamyelocytes % 1 H (manual) Myelocytes % 5 H (Manual) Promyelocytes % 2 H (Manual) Nucleated Red 6 H Blood Cells % Immature 0.160 H Granulocytes # Neutrophils # Neutrophils # 1.2 L (Manual) Band Neutrophils 0.1 # Lymphocytes 0.8 (Manual) Lymphocytes # Reactive 0.1 H Lymphocytes # Monocytes # Monocytes # 0.0 L (Manual) Eosinophils # Basophils # Metamyelocytes # 0.0 Myelocytes # 0.1 H Promyelocytes # 0.0 Nucleated Red Blood Cells # Platelet DECREASED Estimate Giant Platelets 2 H Polychromasia 3+ Poikilocytosis 2+ Anisocytosis 2+ Microcytosis 1+ Sodium Level 141 Potassium Level 3.8 Chloride Level 110 Carbon Dioxide 29 Level Anion Gap 2 L Blood Urea 27 H Nitrogen Creatinine 0.46 L Est Glomerular Filtrat Rate mL/min Glucose Level 135 Calcium Level 8.8 Phosphorus Level 1.1 L Lab Scanned BLOOD TRANSFUSI Report ON Bedside Glucose 166 Blood Gas Blood arterial Specimen Source Arterial Blood 08/19/2018 10:45 Date Drawn :51 AM Arterial Blood 7.253 *L pH (Temp corrected) Arterial Blood 65.5 H pCO2 (Temp correct) Arterial Blood 47.4 *L pO2 (Temp corrected) Arterial Blood 28.3 H HCO3 Arterial Blood 0.2 Base Excess Arterial Blood 78.3 L Oxygen Saturatio n Jarod Test ACCEPTAB Arterial Blood Left Radial Gas Puncture Site Arterial 0.2 Blood Carboxyhem oglobin Arterial Blood 0.4 Methemoglobin Blood Gas A-a O2 600.1 H Differential Oxyhemoglobin 77.8 L Percent Blood Gas 37.0 Temperature Blood Gas 20.0 Respiration Rate Blood Gas Actual 24 Respiration Rate Blood Gas MASK - BIPAP Modality FiO2 100.0 Blood Gas 12 Pressure Support Blood Gas 20/8 IPAP/EPAP Ratio Blood Gas TDICKENS R.N. Critical Value Read Back Blood Gas MDA Notified Whom Blood Gas 08/19/2018 10:51 Notified Time :29 AM Medications Medication Current Medications Dextrose/Sodium Chloride 1,000 ml @ 30 mls/hr Q24H IV Last administered on 08/18/18 20:16; Admin Dose 50 MLS/HR; Start 08/16/18 at 18:30 Miscellaneous Information (Pending [facility] Order For Wound Care) This patient tabares... PRN PRN XX WOUND CARE; Start 08/16/18 at 20:00 Methenamine (Hiprex) 1 gm BID PO Last administered on 08/19/18 09:46; Admin Dose 1 GM; Start 08/16/18 at 21:00 Acetaminophen (Tylenol Tab) 500 mg Q4H PRN PO MILD PAIN(1-3)OR ELEVATED TEMP; Start 08/16/18 at 20:00 Ascorbic Acid (Vitamin C) 500 mg BID GTB Last administered on 08/19/18 09:46; Admin Dose 500 MG; Start 08/16/18 at 21:00 Zinc Sulfate (Zinc Sulfate) 220 mg DAILY PO Last administered on 08/19/18 09:45; Admin Dose 220 MG; Start 08/17/18 at 09:00 Prenat Multivit/ [place]/Iron/Folic Ac () 1 tab DAILY PO Last administered on 08/19/18 09:45; Admin Dose 1 TAB; Start 08/17/18 at 09:00 Bicalutamide (Casodex) 50 mg DAILY PO ; Start 08/17/18 at 09:00; Status Hold Dutasteride (Avodart) 0.5 mg DAILY PO Last administered on 08/19/18 09:46; Admin Dose 0.5 MG; Start 08/17/18 at 09:00 Metoprolol Tartrate (Lopressor) 25 mg BID PO Last administered on 08/19/18 09: 46; Admin Dose 25 MG; Start 08/17/18 at 21:00 Fish Oil (Fish Oil) 1,000 mg BID PO Last administered on 08/19/18at 09:55; Admin Dose 1,000 MG; Start 08/18/18 at 14:00 Albuterol/ Ipratropium (Duoneb) 3 ml Q4H RESP THERAPY HHN ; Start 08/19/18 at 13:00 Sodium Phosphate 20 meq/Sodium Chloride 255 ml @ 63.75 mls/ hr ONCE ONCE IVPB ; Start 08/19/18 at 12:00; Stop 08/19/18 at 15:59 Norepinephrine 250 ml @ 1.875 mls/ hr TITRATE IV Last administered on 08/19/18at 11:59; Admin Dose 1.875 MLS/HR; Start 08/19/18 at 11:00 Piperacillin Sod/ Tazobactam Sod 100 ml @ 200 mls/hr Q6 IVPB ; Start 08/19/18 at 12:00 Lactated Ringer's 500 ml @ 500 mls/hr Q1H ONCE IV Last administered on 08/19/18at 12:00; Admin Dose 500 MLS/HR; Start 08/19/18 at 12:00; Stop 08/19/18 at 12:59 Phenylephrine HCl 250 ml @ 75 mls/hr TITRATE IV ; Start 08/19/18 at 12:00 ADRIEL DELCID Aug 19, 2018 12:11
[2018-08-19] MEDS ORDERED: ALBUTEROL/IPRATROPIUM (NEB) 3 ML AMP HHN SCH (13:00)
--- NOTE | 2018-08-19 13:34 | CONS ---
Consult Date/Type/Reason Admit Date/Time Aug 16, 2018 at 14:10 Initial Consult Date 08/17/18 Type of Consultation: Pulm/CCM Requesting Provider: SANIA WHITTINGTON MD Date/Time of Note DATE: 08/19/18 TIME: 13:14 Subjective Events noted. Patient developed respiratory decompensation with acute hypercapnic and hypoxemic respiratory failure 2/2 left mainstem mucus plugging requiring intubation. Following intubation, he was noted to be hypotensive requiring initiation of levophed gtt. Serial chest radiographs post intubation showed a progressively enlarging right PTX. Objective Vitals Vital Signs Date Temp Pulse Resp B/P (MAP) Pulse Ox O2 O2 Flow FiO2 Time Delivery Rate 08/19/18 98.5 122 20 95/62 (73) 96 11:17 08/19/18 Nasal 4.0 08:00 Cannula Intake and Output 08/18/18 08/18/18 08/19/18 1515:00 23:00 07:00 IntakeIntake Total 1340 ml 510 ml OutputOutput Total 1 ml BalanceBalance 1340 ml 509 ml Exam HEENT: Neck supple; no JVD; no LAD, flat neck veins CVS: Tachy, S1 and S2 CHEST: Diminished BS anteriorly L>R ABD: Soft, NT, + BS EXT: No c/c/e; + LE contractures Results/Medications Result Diagram: 08/19/18 0613 08/19/18 0613 Results 24 hrs Laboratory Tests Test 08/19/18 06:13 08/19/18 07:50 08/19/18 10:23 08/19/18 10:29 White Blood 2.6 L Count Red Blood Count 2.77 L Hemoglobin 7.8 L Hematocrit 24.3 L Mean Corpuscular 87.7 Volume Mean Corpuscular 28.2 L Hemoglobin Mean Corpuscular 32.1 Hemoglobin Glenny nt Red Cell 17.6 H Distribution Width Platelet Count 63 L Mean Platelet Volume Immature 6.100 H Granulocytes % Neutrophils % Segmented 47 Neutrophils % (Manual) Band Neutrophils 6 H % (Manual) Lymphocytes % Lymphocytes % 33 (Manual) Reactive 4 H Lymphocytes % (Manual) Monocytes % Monocytes % 2 (Manual) Eosinophils % Basophils % Metamyelocytes % 1 H (manual) Myelocytes % 5 H (Manual) Promyelocytes % 2 H (Manual) Nucleated Red 6 H Blood Cells % Immature 0.160 H Granulocytes # Neutrophils # Neutrophils # 1.2 L (Manual) Band Neutrophils 0.1 # Lymphocytes 0.8 (Manual) Lymphocytes # Reactive 0.1 H Lymphocytes # Monocytes # Monocytes # 0.0 L (Manual) Eosinophils # Basophils # Metamyelocytes # 0.0 Myelocytes # 0.1 H Promyelocytes # 0.0 Nucleated Red Blood Cells # Platelet DECREASED Estimate Giant Platelets 2 H Polychromasia 3+ Poikilocytosis 2+ Anisocytosis 2+ Microcytosis 1+ Sodium Level 141 Potassium Level 3.8 Chloride Level 110 Carbon Dioxide 29 Level Anion Gap 2 L Blood Urea 27 H Nitrogen Creatinine 0.46 L Est Glomerular Filtrat Rate mL/min Glucose Level 135 Calcium Level 8.8 Phosphorus Level 1.1 L Lab Scanned BLOOD TRANSFUSI Report ON Bedside Glucose 166 Blood Gas Blood arterial Specimen Source Arterial Blood 08/19/2018 10:45 Date Drawn :51 AM Arterial Blood 7.253 *L pH (Temp corrected) Arterial Blood 65.5 H pCO2 (Temp correct) Arterial Blood 47.4 *L pO2 (Temp corrected) Arterial Blood 28.3 H HCO3 Arterial Blood 0.2 Base Excess Arterial Blood 78.3 L Oxygen Saturatio n Jarod Test ACCEPTAB Arterial Blood Left Radial Gas Puncture Site Arterial 0.2 Blood Carboxyhem oglobin Arterial Blood 0.4 Methemoglobin Blood Gas A-a O2 600.1 H Differential Oxyhemoglobin 77.8 L Percent Blood Gas 37.0 Temperature Blood Gas 20.0 Respiration Rate Blood Gas Actual 24 Respiration Rate Blood Gas MASK - BIPAP Modality FiO2 100.0 Blood Gas 12 Pressure Support Blood Gas 20/8 IPAP/EPAP Ratio Blood Gas TDICKENS R.N. Critical Value Read Back Blood Gas [facility] Notified Whom Blood Gas 08/19/2018 10:51 Notified Time :29 AM Test 08/19/18 11:45 Sodium Level 141 Potassium Level 4.3 Chloride Level 110 Carbon Dioxide 27 Level Anion Gap 4 L Blood Urea 29 H Nitrogen Creatinine 0.48 L Est Glomerular Filtrat Rate mL/min Glucose Level 146 Calcium Level 9.3 Total Bilirubin 0.7 Direct Bilirubin 0.00 Indirect 0.7 Bilirubin Aspartate Amino 57 H Transf (AST/SGOT ) Alanine 14 Aminotransferase (ALT/SGPT) Alkaline 272 H Phosphatase Troponin I < 0.012 Total Protein 6.2 Albumin 3.0 L Globulin 3.20 Albumin/Globulin 0.93 Ratio Home Meds Reported Medications [Pomi-T] No Conflict Check 08/16/18 Multivitamin/Iron/Folic Acid (Centrum Adults Tablet) 1 Each Tablet, 1 EACH PO, TAB 08/16/18 Dutasteride* (Avodart*) 0.5 Mg Capsule, 0.5 MG PO DAILY, CAP 08/16/18 Bicalutamide* (Bicalutamide*) 50 Mg Tablet, 50 MG PO DAILY, TAB 08/16/18 Sodium Chloride (Sodium Chloride) 1 Gm Granules, 1 GM MC 08/16/18 Vitamin E* (Vitamin E*) 200 Unit Capsule, 180 MG PO DAILY, CAP 08/16/18 Folic Acid* (Folic Acid*) 1 Mg Tablet, 1 MG PO DAILY, TAB 08/16/18 Memantine* (Namenda* XR) 28 Mg Cap.spr.24, 28 MG PO DAILY, #30 TAB 08/16/18 Tamsulosin Hcl* (Flomax*) 0.4 Mg Cap.er.24h, 0.4 MG PO DAILY, CAP 08/16/18 Nitrofurantoin Monohyd Macrocr* (Macrobid*) 100 Mg Capsr, 100 MG PO BID, CAP 08/16/18 Medications Current Medications Dextrose/Sodium Chloride 1,000 ml @ 30 mls/hr Q24H IV Last administered on 08/18/18at 20:16; Admin Dose 50 MLS/HR; Start 08/16/18 at 18:30 Miscellaneous Information (Pending [facility] Order For Wound Care) This patient tabares... PRN PRN XX WOUND CARE; Start 08/16/18 at 20:00 Methenamine (Hiprex) 1 gm BID PO Last administered on 08/19/18at 09:46; Admin Dose 1 GM; Start 08/16/18 at 21:00 Acetaminophen (Tylenol Tab) 500 mg Q4H PRN PO MILD PAIN(1-3)OR ELEVATED TEMP; Start 08/16/18 at 20:00 Ascorbic Acid (Vitamin C) 500 mg BID GTB Last administered on 08/19/18at 09:46; Admin Dose 500 MG; Start 08/16/18 at 21:00 Zinc Sulfate (Zinc Sulfate) 220 mg DAILY PO Last administered on 08/19/18at 09:45; Admin Dose 220 MG; Start 08/17/18 at 09:00 Prenat Multivit/ [employer]/Iron/Folic Ac () 1 tab DAILY PO Last administered on 08/19/18at 09:45; Admin Dose 1 TAB; Start 08/17/18 at 09:00 Bicalutamide (Casodex) 50 mg DAILY PO ; Start 08/17/18 at 09:00; Status Hold Dutasteride (Avodart) 0.5 mg DAILY PO Last administered on 08/19/18at 09:46; Admin Dose 0.5 MG; Start 08/17/18 at 09:00 Metoprolol Tartrate (Lopressor) 25 mg BID PO Last administered on 08/19/18at 09:46; Admin Dose 25 MG; Start 08/17/18 at 21:00 Fish Oil (Fish Oil) 1,000 mg BID PO Last administered on 08/19/18at 09:55; Admin Dose 1,000 MG; Start 08/18/18 at 14:00 Albuterol/ Ipratropium (Duoneb) 3 ml Q4H RESP THERAPY HHN ; Start 08/19/18 at 13:00 Sodium Phosphate 20 meq/Sodium Chloride 255 ml @ 63.75 mls/ hr ONCE ONCE IVPB ; Start 08/19/18 at 12:00; Stop 08/19/18 at 15:59 Norepinephrine 250 ml @ 1.875 mls/ hr TITRATE IV Last administered on 08/19/18at 11:59; Admin Dose 1.875 MLS/HR; Start 08/19/18 at 11:00 Piperacillin Sod/ Tazobactam Sod 100 ml @ 200 mls/hr Q6 IVPB ; Start 08/19/18 at 12:00 Lactated Ringer's 500 ml @ 500 mls/hr Q1H ONCE IV Last administered on 08/19/18at 12:00; Admin Dose 500 MLS/HR; Start 08/19/18 at 12:00; Stop 08/19/18 at 12:59 Phenylephrine HCl 250 ml @ 75 mls/hr TITRATE IV ; Start 08/19/18 at 12:00 Assessment/Plan Assessment/Plan (Daily) IMP: 1. Acute Hypercapnic/Hypoxemic Respiratory Failure 2/2 L mainstem mucus plugging with complete left lung atelectasis s/p intubation. Resulting positive pressure ventilation thereafter likely led to a right-sided pneumothorax with tension physiology. 2. Tension PTX 3. Complete Left Lung ATX--2/2 mucus plugging, now re-expanded. 4. Intermittent PSVT 5. Right lung pneumonia--likely aspiration 6. Possible UTI 7. 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 Prostate Cancer 9. Severe Cachexia/deconditioning 10. Pancytopenia RECS: 1. Vent support-->change Vt to lung protective strategy to prevent further barotrauma 2. Emergent chest tube thoracostomy 3. Central venous access 4. IVF resuscitation with LR 5. Broad-spectrum abx 6. Benito-culture 7. Transfuse 2 units PRBC 8. Follow H/H and coag 9 DIC panel 10 Serial lactates 11.Will consider amiodarone gtt if atrial tachycardia recurs 12. Fentanyl gtt for sedation/analgesia 13. Chest tube to 20 cm H20 suction 14. Chest PT/suctioning/BD's (avoid excessive beta-adrenergic agents) 60 min cc time Case d/w family in detail VLADIMIR AGGARWAL MD Aug 19, 2018 13:34
--- NOTE | 2018-08-19 13:37 | PRO ---
Date/Time of Note Date/Time of Note DATE: 08/19/18 TIME: 13:36 Femoral CV Placement PROCEDURE NOTE PROCEDURE: Femoral central venous catheter INDICATION: Need for intravenous access due to shock PROCEDURE TRANSPLANT SURGEON: Jocelin CONSENT: Consent was implied due to the emergent nature of the procedure. PROCEDURE SUMMARY: The patient was prepped and draped in the usual sterile manner. 1% lidocaine was used to numb the region. The finder needle was used to locate the right femoral vein. A triple lumen 8 [place]ian 20 cm catheter was inserted using the Seldinger technique under direct U/S guidance. All ports aspirate and flushed without difficulty. The patient tolerated the procedure well without any immediate complications. The line was sutured into place and the area was cleaned and Tegaderm applied. ESTIMATED BLOOD LOSS: 1-2 ml VLADIMIR AGGARWAL MD Aug 19, 2018 13:37
--- NOTE | 2018-08-19 13:45 | EN ---
Date/Time of Note Date/Time of Note DATE: 08/19/18 TIME: 13:37 Event Note Medicine Medicine Event Note Procedure: Right chest tube thoracostomy MD: Jocelin Indication: Tension PTX Meds: Lidocaine 1% 5 ml locally Consent: obtained from family and placed in chart Technique: Under strict sterile precautions, a 2 cm incision was made in the right mid-axillary region at the 4/5th intercostal space. The subcutaneous tissue was dilator using a curved Meggan. Upon entrance in to the pleural cavity, a large roche of air was noted. A 28 F chest tube was advanced to 12 cm veena and secured in place with 0 silk sutures. Vaseline gauze and sterile dressing dressings applied. Chest tube connected to pleurevac at 20 cm H20 suction. ++ air-leak and normal respiratory variability noted. Complications: None Stat CXR ordered and pending. VLADIMIR AGGARWAL MD Aug 19, 2018 13:45
--- NOTE | 2018-08-19 13:58 | CONS ---
Consult Date/Type/Reason Admit Date/Time Aug 16, 2018 at 14:10 Initial Consult Date 08/17/18 Type of Consultation: Pulm/CCM Requesting Provider: SANIA WHITTINGTON MD Date/Time of Note DATE: 08/19/18 TIME: 13:53 Subjective Pt now in ICU with clinical decompensation - tension pneumo Rx, awaiting bloodTx. Family at bedside - aware of poor prognosis. NOF/C/N/V + SOB,minimally abusable Objective Vitals Vital Signs Date Temp Pulse Resp B/P (MAP) Pulse Ox O2 O2 Flow FiO2 Time Delivery Rate 08/19/18 100 12:00 08/19/18 98.5 122 20 95/62 (73) 96 11:17 08/19/18 Nasal 4.0 08:00 Cannula Intake and Output 08/18/18 08/18/18 08/19/18 1515:00 23:00 07:00 IntakeIntake Total 1340 ml 510 ml OutputOutput Total 1 ml BalanceBalance 1340 ml 509 ml Exam General: WN/WD/NAD, AOx 0 HEENT: Unicetric/atraumatic/EOMI (does not follow commands) - intubated NECK: JVD elevated, no thyromegaly Lymph: no lymphadenopathy HEART: irregular with no S3, II/ systolic murmur at apex, tachy LUNGS: Coarse sounds, CT ABD: soft, NT, ND, +BS : Intact Neuro: non focal SKIN: chronic changes EXT: trace edema Results/Medications Result Diagram: 08/19/18 0613 08/19/18 1145 Results 24 hrs Laboratory Tests Test 08/19/18 06:13 08/19/18 07:50 08/19/18 10:23 08/19/18 10:29 White Blood 2.6 L Count Red Blood Count 2.77 L Hemoglobin 7.8 L Hematocrit 24.3 L Mean Corpuscular 87.7 Volume Mean Corpuscular 28.2 L Hemoglobin Mean Corpuscular 32.1 Hemoglobin Glenny nt Red Cell 17.6 H Distribution Width Platelet Count 63 L Mean Platelet Volume Immature 6.100 H Granulocytes % Neutrophils % Segmented 47 Neutrophils % (Manual) Band Neutrophils 6 H % (Manual) Lymphocytes % Lymphocytes % 33 (Manual) Reactive 4 H Lymphocytes % (Manual) Monocytes % Monocytes % 2 (Manual) Eosinophils % Basophils % Metamyelocytes % 1 H (manual) Myelocytes % 5 H (Manual) Promyelocytes % 2 H (Manual) Nucleated Red 6 H Blood Cells % Immature 0.160 H Granulocytes # Neutrophils # Neutrophils # 1.2 L (Manual) Band Neutrophils 0.1 # Lymphocytes 0.8 (Manual) Lymphocytes # Reactive 0.1 H Lymphocytes # Monocytes # Monocytes # 0.0 L (Manual) Eosinophils # Basophils # Metamyelocytes # 0.0 Myelocytes # 0.1 H Promyelocytes # 0.0 Nucleated Red Blood Cells # Platelet DECREASED Estimate Giant Platelets 2 H Polychromasia 3+ Poikilocytosis 2+ Anisocytosis 2+ Microcytosis 1+ Sodium Level 141 Potassium Level 3.8 Chloride Level 110 Carbon Dioxide 29 Level Anion Gap 2 L Blood Urea 27 H Nitrogen Creatinine 0.46 L Est Glomerular Filtrat Rate mL/min Glucose Level 135 Calcium Level 8.8 Phosphorus Level 1.1 L Lab Scanned BLOOD TRANSFUSI Report ON Bedside Glucose 166 Blood Gas Blood arterial Specimen Source Arterial Blood 08/19/2018 10:45 Date Drawn :51 AM Arterial Blood 7.253 *L pH (Temp corrected) Arterial Blood 65.5 H pCO2 (Temp correct) Arterial Blood 47.4 *L pO2 (Temp corrected) Arterial Blood 28.3 H HCO3 Arterial Blood 0.2 Base Excess Arterial Blood 78.3 L Oxygen Saturatio n Jarod Test ACCEPTAB Arterial Blood Left Radial Gas Puncture Site Arterial 0.2 Blood Carboxyhem oglobin Arterial Blood 0.4 Methemoglobin Blood Gas A-a O2 600.1 H Differential Oxyhemoglobin 77.8 L Percent Blood Gas 37.0 Temperature Blood Gas 20.0 Respiration Rate Blood Gas Actual 24 Respiration Rate Blood Gas MASK - BIPAP Modality FiO2 100.0 Blood Gas 12 Pressure Support Blood Gas 20/8 IPAP/EPAP Ratio Blood Gas TDICKENS R.N. Critical Value Read Back Blood Gas [facility] Notified Whom Blood Gas 08/19/2018 10:51 Notified Time :29 AM Test 08/19/18 11:45 Sodium Level 141 Potassium Level 4.3 Chloride Level 110 Carbon Dioxide 27 Level Anion Gap 4 L Blood Urea 29 H Nitrogen Creatinine 0.48 L Est Glomerular Filtrat Rate mL/min Glucose Level 146 Calcium Level 9.3 Total Bilirubin 0.7 Direct Bilirubin 0.00 Indirect 0.7 Bilirubin Aspartate Amino 57 H Transf (AST/SGOT ) Alanine 14 Aminotransferase (ALT/SGPT) Alkaline 272 H Phosphatase Troponin I < 0.012 Total Protein 6.2 Albumin 3.0 L Globulin 3.20 Albumin/Globulin 0.93 Ratio Home Meds Reported Medications [Pomi-T] No Conflict Check 08/16/18 Multivitamin/Iron/Folic Acid (Centrum Adults Tablet) 1 Each Tablet, 1 EACH PO, TAB 08/16/18 Dutasteride* (Avodart*) 0.5 Mg Capsule, 0.5 MG PO DAILY, CAP 08/16/18 Bicalutamide* (Bicalutamide*) 50 Mg Tablet, 50 MG PO DAILY, TAB 08/16/18 Sodium Chloride (Sodium Chloride) 1 Gm Granules, 1 GM MC 08/16/18 Vitamin E* (Vitamin E*) 200 Unit Capsule, 180 MG PO DAILY, CAP 08/16/18 Folic Acid* (Folic Acid*) 1 Mg Tablet, 1 MG PO DAILY, TAB 08/16/18 Memantine* (Namenda* XR) 28 Mg Cap.spr.24, 28 MG PO DAILY, #30 TAB 08/16/18 Tamsulosin Hcl* (Flomax*) 0.4 Mg Cap.er.24h, 0.4 MG PO DAILY, CAP 08/16/18 Nitrofurantoin Monohyd Macrocr* (Macrobid*) 100 Mg Capsr, 100 MG PO BID, CAP 08/16/18 Medications Current Medications Dextrose/Sodium Chloride 1,000 ml @ 30 mls/hr Q24H IV Last administered on 08/18/18at 20:16; Admin Dose 50 MLS/HR; Start 08/16/18 at 18:30 Miscellaneous Information [facility] This patient tabares... PRN PRN XX WOUND CARE; Start 08/16/18 at 20:00 Methenamine (Hiprex) 1 gm BID PO Last administered on 08/19/18at 09:46; Admin Dose 1 GM; Start 08/16/18 at 21:00 Acetaminophen (Tylenol Tab) 500 mg Q4H PRN PO MILD PAIN(1-3)OR ELEVATED TEMP; Start 08/16/18 at 20:00 Ascorbic Acid (Vitamin C) 500 mg BID GTB Last administered on 08/19/18at 09:46; Admin Dose 500 MG; Start 08/16/18 at 21:00 Zinc Sulfate (Zinc Sulfate) 220 mg DAILY PO Last administered on 08/19/18at 09:45; Admin Dose 220 MG; Start 08/17/18 at 09:00 Prenat Multivit/ [place]/Iron/Folic Ac () 1 tab DAILY PO Last administered on 08/19/18 09:45; Admin Dose 1 TAB; Start 08/17/18 at 09:00 Bicalutamide (Casodex) 50 mg DAILY PO ; Start 08/17/18 at 09:00; Status Hold Dutasteride (Avodart) 0.5 mg DAILY PO Last administered on 08/19/18 09:46; Admin Dose 0.5 MG; Start 08/17/18 at 09:00 Metoprolol Tartrate (Lopressor) 25 mg BID PO Last administered on 08/19/18 09:46; Admin Dose 25 MG; Start 08/17/18 at 21:00 Fish Oil (Fish Oil) 1,000 mg BID PO Last administered on 08/19/18at 09:55; Admin Dose 1,000 MG; Start 08/18/18 at 14:00 Sodium Phosphate 20 meq/Sodium Chloride 255 ml @ 63.75 mls/ hr ONCE ONCE IVPB ; Start 08/19/18 at 12:00; Stop 08/19/18 at 15:59 Norepinephrine 250 ml @ 1.875 mls/ hr TITRATE IV Last administered on at 11:59; Admin Dose 1.875 MLS/HR; Start 08/19/18 at 11:00 Piperacillin Sod/ Tazobactam Sod 100 ml @ 200 mls/hr Q6 IVPB ; Start 08/19/18 at 12:00 Phenylephrine HCl 250 ml @ 75 mls/hr TITRATE IV ; Start 08/19/18 at 12:00 Lactated Ringer's 500 ml @ 500 mls/hr Q1H ONCE IV Last administered on 08/19/18at 13:26; Admin Dose 500 MLS/HR; Start 08/19/18 at 13:00; Stop 08/19/18 at 13:59 Albuterol (Ventolin Hfa) 4 puff Q4H RESP THERAPY INH ; Start 08/19/18 at 17:00 Ipratropium [place] (Atrovent Hfa) 4 puff Q4 INH ; Start 08/19/18 at 17:00 Lactated Ringer's 1,000 ml @ 100 mls/hr Q10H IV ; Start 08/19/18 at 14:00; Status UNV Piperacillin Sod/ Tazobactam Sod 100 ml @ 200 mls/hr Q8 IVPB ; Start 08/19/18 at 14:00; Status UNV Vancomycin HCl 250 ml @ 125 mls/hr Q24H IVPB ; Start 08/19/18 at 14:00 Phenylephrine HCl 40 mg/Dextrose 250 ml @ 937.5 mls/ hr TITRATE IV ; Start 08/19/18 at 14:00; Status UNV Assessment/Plan Hospital Course (Demo Recall) 1. Abnormal electrocardiogram, assess for acute coronary syndrome.-neg trop x 2. NL EF by echo this admi - r/o GA, no interbention currently planned, now in ICU - on bria gtt - will monitor clinically now. 2. Cardiac arrhythmia at this time, most consistent with sinus arrhythmia.-mild tachycardia, sinus arrythmia. NL TSH - now with ainustach/a.tach- respiratory driven - not sure if BP will tolerateamio gtt - will hold for BP to stabilize. 3. History of hypertension with per report hypotension at the end of the procedure. Better now. Now low. 4. Dysphagia, status post PEG - GO follows. 5. Failure to thrive. 6. History of prostate carcinoma - poor prognoss. 7. History of aplastic anemia with ongoing anemia at this time - no active bleeding now. Huctfvd7h now. 8. Hypernatremia. 9. Prerenal state. 10. Pancytopenia. JANETT RAMIREZ MD Aug 19, 2018 13:58
[2018-08-19] MEDS ORDERED: VANCOMYCIN 1 GM (PMX) 250 ML IVPB SCH (14:00)
[2018-08-19] MEDS ORDERED: VANCOMYCIN 1 GM 250 ML IVPB SCH (14:30)
[2018-08-19] MEDS ORDERED: VANCOMYCIN IV PER PHARMACY XX SCH (14:30)
[2018-08-19] MEDS: LACTATED RINGER'S 1,000 ML IV SCH (15:09)
[2018-08-19] MEDS: PIPER-TAZO 3.375 GM IV (PMX) 100 ML IVPB SCH ×2 (15:10→22:05)
[2018-08-19] MEDS: IPRATROPIUM (HFA) 12.9 GM INHALER INH SCH ×2 (17:00→21:30)
[2018-08-19] MEDS: PHENYLephrine 40 MG in DEXTROSE 5% 246 ML IV SCH (17:14)
[2018-08-19] MEDS: ALBUTEROL HFA 8 GM INHALER INH SCH ×2 (17:27→21:30)
[2018-08-19] MEDS ORDERED: GLUCOSE GEL 15 GRAM TUBE PO PRN ×2 (21:30)
[2018-08-19] MEDS ORDERED: GLUCAGON 1 MG INJ IM PRN (21:30)
[2018-08-19] MEDS ORDERED: GLUCOSE GEL 15 GRAM TUBE BUCCAL PRN (21:30)
[2018-08-19] MEDS ORDERED: DEXTROSE 50% 50 ML SYRINGE IV PRN ×2 (21:30)
[2018-08-19] MEDS: INSULIN ASPART [NOVOLOG] 3 ML PEN SC SCH (22:00)
[2018-08-20] VITALS (96 sets, daily range): BP systolic 81–121; BP diastolic 47–74; PULSE 70–132; RESP 21–30
[2018-08-20] MEDS: PHENYLephrine 40 MG in DEXTROSE 5% 246 ML IV SCH ×3 (00:41→17:13)
--- NOTE | 2018-08-20 01:06 | RADRPT ---
Vent Rate: 114 bpm RR Interval: 528 msec NM Interval: 140 msec QRS Duration: 69 msec QT Interval: 308 msec QTC Interval: 424 msec P-R-T [place]: 84 - 0 - 68 degrees Sinus tachycardia...rate> 99 Anterior infarct, age indeterminate...Q >35mS, T neg, in V2-V5 Electronically Signed By: Alejo Angulo
[2018-08-20] MEDS: IPRATROPIUM (HFA) 12.9 GM INHALER INH SCH ×6 (01:38→20:21)
[2018-08-20] MEDS: ALBUTEROL HFA 8 GM INHALER INH SCH ×6 (01:38→20:21)
[2018-08-20] MEDS: INSULIN ASPART [NOVOLOG] 3 ML PEN SC SCH ×6 (01:44→21:00)
[2018-08-20] MEDS: PIPER-TAZO 3.375 GM IV (PMX) 100 ML IVPB SCH ×3 (05:37→21:34)
[2018-08-20] MEDS: LACTATED RINGER'S 1,000 ML IV SCH ×2 (05:38→18:17)
--- NOTE | 2018-08-20 07:02 | PN ---
DATE: 08/19/2018 LOCATION: ICU. SUBJECTIVE AND INTERVAL HISTORY: The patient had sudden decline in his condition, became progressive ly more short of breath and went into respiratory failure. Stat x-ray revealed increased right basil ar infiltrate concerning for pneumonia, increased left pleural effusion with associated atelectasis o bscuring the left hemothorax. The patient was put on BiPAP; however, the patient continued to declin e and ER physician saw him for acute respiratory decompensation despite BiPAP therapy. The patient w as intubated and was transferred to ICU. The patient's chest x-ray revealed right pneumothorax. The patient did have a low grade fever earlier this morning. No reported vomiting. No reported bleedin g from any site. The patient remains frail. PHYSICAL EXAMINATION: GENERAL: Revealed the patient to be lethargic but arousable. VITAL SIGNS: T-maximum 99.8, pulse 122, respirations 20, blood pressure 95/62, O2 saturation 96% on FiO2 of 100%. HEENT: No eye discharge or redness. Nose and ears are normal externally. NECK: No mass. CHEST: Diminished air entry bilaterally. No retractions. CARDIOVASCULAR: Regular rate and rhythm. Sinus tachycardia. ABDOMEN: Soft. Feeding tube in place, nondistended. EXTREMITIES: Trace edema. NEUROLOGIC: The patient is lethargic, but arousable, currently intubated. The patient has cachexia and generalized weakness in all extremities. LABORATORY DATA: This morning, WBC 2.6, hemoglobin 7.8, platelets 63. Sodium 141, potassium 3.8, BU N 27, creatinine 0.4. Phosphorus 1.1, calcium 8.8. Glucose 166. IMPRESSION: 1. Acute hypoxemic hypercarbic respiratory failure. ABG revealed pH 7.25, pCO2 of 65.4 and pO2 of 4 7. The patient is currently intubated and is saturating 96% on FiO2 of 100%. I spoke with Dr. Prosper garner from pulmonary critical standpoint. He is going to put in a chest tube. 2. Bilateral pleural effusion, status post recent right-sided thoracentesis, predominantly lymphocyt ic exudate. Cytology is pending. 3. Metastatic prostate cancer with poor prognosis. Palliative care was recommended to the family; h owever, they requested treatment. 4. Dysphagia, status post jejunostomy tube which is being used for feeding. The patient is being fo llowed by Dr. Mendez from GI standpoint. The patient was also seen by Dr. Jared Melendez from oncol ogy standpoint, Dr. Powell from cardiac standpoint. Echo revealed EF of 55% to 60%. The patient rem ains critically ill. 5. The patient's pancytopenia appears to be from metastatic prostate cancer. Meanwhile, we will con tinue IV Zosyn for possible pneumonia. 6. For severe hypophosphatemia, the patient will receive sodium phosphate. We will do followup labs . Total critical time spent is 35 minutes. Dictated By: SANIA WHITTINGTON MD AB/NTS Conf#: [id number] DID#: [id number] CC: GAGE DURAN MD; LUIS ALBERTO EDWARD MD;*EndCC*
[2018-08-20] MEDS ORDERED: SOD CHLORIDE 0.9% 500 ML IV ONE (07:30)
--- NOTE | 2018-08-20 07:35 | CONS ---
Assessment/Plan Assessment/Plan Hospital Course (Demo Recall) 87 yo male with prostate cancer with possible bone mets presents with failure to thrive and malnutrition. S/P PEG 08/[address] Mendez Interval hx: RT sided tension pneum, CT in place, intubated. Plans for weaning trials today so TF on hold. Two brown BM yesterday and one smear last night. Nothing was sent for FOB yet. 2 units PRBC given for hgb of 7.8 and this am hgb 12.1. Pt is responsive to tactile stimuli. NO signs of GI bleeding per RN. Lactate 2.1 1. Malnutrition. 2. Failure to thrive. 3. Alzheimer disease. 4. 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 5. Hypertension. 6. Resp distress 7. Encephalopathy 8. Anemia with downward trend -retic 2.2, Iron and percent sat wnl, TIBC low, ferritin high 9. Rt tension pneumothorax 10. UTI 11. Encephalopathy CXR 08/19 am: IMPRESSION: 1. New small right pneumothorax. Critical findings were discussed with patient's nurse, Tori, on 08/19/2018 11:15:53 AM. Recommend close interval follow-up chest radiograph. 2. Interval satisfactory intubation. 3. No significant change in complete opacification of the left hemithorax, likely representing combination of collapsed lung and pleural effusion. 4. Small right pleural effusion with adjacent right basilar opacity, representing atelectasis versus pneumonia. PLAN: Supportive ICU care FOB pending Flush [id number] water q 6 hours Titrate tube feeds slowly to prevent refeeding syndrome, 30cc/hr Monitor electrolytes for refeeding syndrome Continue with erythromycin Abdominal binder Continue with IV hydration until pt is at goal Pt examined and plan of care discussed with Dr. Mendez Consultation Date/Type/Reason Admit Date/Time Aug 16, 2018 at 14:10 Initial Consult Date Requesting Provider: SANIA WHITTINGTON MD Date/Time of Note DATE: 08/20/18 TIME: 07:26 Exam/Review of Systems Exam Vitals Vital Signs Date Temp Pulse Resp B/P (MAP) Pulse Ox O2 O2 Flow FiO2 Time Delivery Rate 08/20/18 108 28 108/64 98 Mechanical 06:00 (79) Ventilator 08/20/18 45 05:23 08/20/18 99.2 04:00 08/19/18 4.0 08:00 Intake and Output 08/19/18 08/19/18 08/20/18 1515:00 23:00 07:00 IntakeIntake Total 2094.375 ml 2118.75 ml 570.00 ml OutputOutput Total 185 ml 305 ml 295 ml BalanceBalance 1909.375 ml 1813.75 ml 275.00 ml Head: normocephalic Eyes: nl sclera ENMT: intubated Respiratory: crackles/rales Cardiovascular: regular rate and rhythm Gastrointestinal: soft, non-tender, other (hypoactive bowel sounds, g tube site clean and dry) Extremities: other (BLE pedal edema) Neurological: other (responsive to tactile stimuli) Results Result Diagram: 08/20/18 0400 08/20/18 0400 Results 24hrs Laboratory Tests Test 08/19/18 07:50 08/19/18 10:23 08/19/18 10:29 08/19/18 11:45 Lab Scanned BLOOD TRANSFUSI Report ON Bedside Glucose 166 Blood Gas Blood arterial Specimen Source Arterial Blood 08/19/2018 10:45 Date Drawn :51 AM Arterial Blood 7.253 *L pH (Temp corrected) Arterial Blood 65.5 H pCO2 (Temp correct) Arterial Blood 47.4 *L pO2 (Temp corrected) Arterial Blood 28.3 H HCO3 Arterial Blood 0.2 Base Excess Arterial Blood 78.3 L Oxygen Saturatio n Jarod Test ACCEPTAB Arterial Blood Left Radial Gas Puncture Site Arterial 0.2 Blood Carboxyhem oglobin Arterial Blood 0.4 Methemoglobin Blood Gas A-a O2 600.1 H Differential Oxyhemoglobin 77.8 L Percent Blood Gas 37.0 Temperature Blood Gas 20.0 Respiration Rate Blood Gas Actual 24 Respiration Rate Blood Gas MASK - BIPAP Modality FiO2 100.0 Blood Gas 12 Pressure Support Blood Gas 20/8 IPAP/EPAP Ratio Blood Gas TDICKENS R.N. Critical Value Read Back Blood Gas MDA Notified Whom Blood Gas 08/19/2018 10:51 Notified Time :29 AM Sodium Level 141 Potassium Level 4.3 Chloride Level 110 Carbon Dioxide 27 Level Anion Gap 4 L Blood Urea 29 H Nitrogen Creatinine 0.48 L Est Glomerular Filtrat Rate mL/min Glucose Level 146 Calcium Level 9.3 Total Bilirubin 0.7 Direct Bilirubin 0.00 Indirect 0.7 Bilirubin Aspartate Amino 57 H Transf (AST/SGOT ) Alanine 14 Aminotransferase (ALT/SGPT) Alkaline 272 H Phosphatase Troponin I < 0.012 Total Protein 6.2 Albumin 3.0 L Globulin 3.20 Albumin/Globulin 0.93 Ratio Test 08/19/18 13:36 08/19/18 14:54 08/19/18 14:55 08/19/18 15:00 Blood Gas Blood arterial Specimen Source Arterial Blood 08/19/2018 2:18: Date Drawn 17 PM Arterial Blood 7.408 pH (Temp corrected) Arterial Blood 35.7 pCO2 (Temp correct) Arterial Blood 40.6 *L pO2 (Temp corrected) Arterial Blood 22.0 HCO3 Arterial Blood -2.2 Base Excess Arterial Blood 78.9 L Oxygen Saturatio n Jarod Test N/A Arterial Blood Right Radial Gas Puncture Site Arterial 0.6 Blood Carboxyhem oglobin Arterial Blood 0.3 Methemoglobin Blood Gas A-a O2 347.9 H Differential Oxyhemoglobin 78.2 L Percent Blood Gas 37.0 Temperature Blood Gas 24.0 Respiration Rate Blood Gas Actual 30 Respiration Rate Blood Gas VENT - AC Modality FiO2 60.0 Blood Gas Tidal 400.0 Volume Blood Gas Low 5.0 PEEP Setting Blood Gas TDICKENS R.N. Critical Value Read Back Blood Gas MDA Notified Whom Blood Gas 08/19/2018 2:25: Notified Time 07 PM White Blood 2.7 L Count Red Blood Count 3.54 #L Hemoglobin 9.7 #L Hematocrit 30.9 #L Mean Corpuscular 87.3 Volume Mean Corpuscular 27.4 L Hemoglobin Mean Corpuscular 31.4 L Hemoglobin Glenny nt Red Cell 17.9 H Distribution Width Platelet Count 118 #L 118 L Mean Platelet Volume Immature 11.000 H Granulocytes % Neutrophils % Segmented 24 L Neutrophils % (Manual) Band Neutrophils 17 H % (Manual) Lymphocytes % Lymphocytes % 34 (Manual) Reactive 1 H Lymphocytes % (Manual) Monocytes % Eosinophils % Basophils % Basophils % 11 H (Manual) Myelocytes % 9 H (Manual) Promyelocytes % 4 H (Manual) Nucleated Red 35 H Blood Cells % Immature 0.300 H Granulocytes # Neutrophils # Neutrophils # 0.7 L (Manual) Band Neutrophils 0.4 # Lymphocytes 0.9 (Manual) Lymphocytes # Reactive 0.0 Lymphocytes # Monocytes # Eosinophils # Basophils # Basophils # 0.2 H (Manual) Myelocytes # 0.2 H Promyelocytes # 0.1 H Nucleated Red Blood Cells # Platelet DECREASED Estimate Giant Platelets 2 H Polychromasia 1+ Poikilocytosis 2+ Anisocytosis 1+ Microcytosis 1+ Ovalocytes 1+ Absolute 0.076 Reticulocyte Count Percent 2.2 H Reticulocyte Count Prothrombin Time 14.5 Prothrombin Time 1.1 Ratio INR 1.12 International Normalized Ratio Activated 38.8 H Partial Thrombop last Time Thrombin Time 16.6 Fibrinogen 611.0 H Plasma Fibrin >10 and <40 H Degradation Prod ucts D-Dimer > 22790.00 H Lactic Acid 2.2 *H Level Iron Level 43 Total Iron 132 L Binding Capacity Percent Iron 33 Saturation Ferritin 4600.0 H Troponin I 0.017 Vitamin B12 > 1000 H Level Folate > 20.0 H Urine Color PREETI Urine Clarity CLOUDY A Urine pH 6.0 Urine Specific 1.017 [place] Urine Ketones NEGATIVE Urine Nitrite NEGATIVE Urine Bilirubin NEGATIVE Urine NEGATIVE Urobilinogen Urine Leukocyte 2+ H Esterase Urine > 182 H Microscopic RBC Urine > 182 H Microscopic WBC Urine Squamous FEW Epithelial Cells Urine FEW A Transitional Epithelial Cells Urine Bacteria MODERATE Urine Mucus MODERATE Urine Hemoglobin 3+ H Urine Glucose 1+ H Urine Total 2+ H Protein Test 08/19/18 21:07 08/19/18 22:04 08/20/18 01:37 08/20/18 04:00 Bedside Glucose 110 124 148 White Blood 3.0 L Count Red Blood Count 4.46 #L Hemoglobin 12.5 #L Hematocrit 37.9 #L Mean Corpuscular 85.0 Volume Mean Corpuscular 28.0 L Hemoglobin Mean Corpuscular 33.0 Hemoglobin Glenny nt Red Cell 17.0 H Distribution Width Platelet Count 80 #L Mean Platelet Volume Immature 7.900 H Granulocytes % Neutrophils % Lymphocytes % Monocytes % Eosinophils % Basophils % Nucleated Red 16.1 H Blood Cells % Immature 0.240 H Granulocytes # Neutrophils # Lymphocytes # Monocytes # Eosinophils # Basophils # Nucleated Red Blood Cells # Sodium Level 139 Potassium Level 4.7 Chloride Level 111 H Carbon Dioxide 22 Level Anion Gap 6 Blood Urea 35 H Nitrogen Creatinine 0.49 L Est Glomerular Filtrat Rate mL/min Glucose Level 160 Lactic Acid 2.1 *H Level Calcium Level 8.5 Phosphorus Level 2.7 Magnesium Level 2.0 Test 08/20/18 05:00 08/20/18 05:07 Blood Gas Blood arterial Specimen Source Arterial Blood 08/20/2018 4:36: Date Drawn 36 AM Arterial Blood 7.446 pH (Temp corrected) Arterial Blood 28.4 L pCO2 (Temp correct) Arterial Blood 112.4 H pO2 (Temp corrected) Arterial Blood 19.1 L HCO3 Arterial Blood -3.4 L Base Excess Arterial Blood 98.3 Oxygen Saturatio n Jarod Test ACCEPTAB Arterial Blood Right Radial Gas Puncture Site Arterial 0.7 Blood Carboxyhem oglobin Arterial Blood 0.5 Methemoglobin Blood Gas A-a O2 212.2 H Differential Oxyhemoglobin 97.1 Percent Blood Gas 37.0 Temperature Blood Gas 24.0 Respiration Rate Blood Gas Actual 29 Respiration Rate Blood Gas VENT - AC Modality FiO2 50.0 Blood Gas Tidal 400.0 Volume Blood Gas Low 5.0 PEEP Setting Blood Gas 18.0 Inspiratory Pressure Blood Gas LW Notified Whom Blood Gas 08/20/2018 4:47: Notified Time 32 AM Bedside Glucose 149 Medications Medication Current Medications Miscellaneous Information (Pending Santyl Order For Wound Care) This patient tabares... PRN PRN XX WOUND CARE; Start 08/16/18 at 20:00 Methenamine (Hiprex) 1 gm BID PO Last administered on 08/19/18at 21:12; Admin Dose 1 GM; Start 08/16/18 at 21:00 Acetaminophen (Tylenol Tab) 500 mg Q4H PRN PO MILD PAIN(1-3)OR ELEVATED TEMP; Start 08/16/18 at 20:00 Ascorbic Acid (Vitamin C) 500 mg BID GTB Last administered on 08/19/18at 21:11; Admin Dose 500 MG; Start 08/16/18 at 21:00 Zinc Sulfate (Zinc Sulfate) 220 mg DAILY PO Last administered on 08/19/18at 09:45; Admin Dose 220 MG; Start 08/17/18 at 09:00 Prenat Multivit/ [place]/Iron/Folic Ac () 1 tab DAILY PO Last administered on 08/19/18 09:45; Admin Dose 1 TAB; Start 08/17/18 at 09:00 Bicalutamide (Casodex) 50 mg DAILY PO ; Start 08/17/18 at 09:00; Status Hold Dutasteride (Avodart) 0.5 mg DAILY PO Last administered on 08/19/18at 09:46; Admin Dose 0.5 MG; Start 08/17/18 at 09:00 Metoprolol Tartrate (Lopressor) 25 mg BID PO Last administered on 08/19/18at 09:46; Admin Dose 25 MG; Start 08/17/18 at 21:00 Fish Oil (Fish Oil) 1,000 mg BID PO Last administered on 08/19/18at 21:11; Admin Dose 1,000 MG; Start 08/18/18 at 14:00 Norepinephrine 250 ml @ 1.875 mls/ hr TITRATE IV Last administered on 08/19/18at 11:59; Admin Dose 1.875 MLS/HR; Start 08/19/18 at 11:00 Albuterol (Ventolin Hfa) 4 puff Q4H RESP THERAPY INH Last administered on 08/20/18at 05:23; Admin Dose 4 PUFF; Start 08/19/18 at 17:00 Ipratropium [place] (Atrovent Hfa) 4 puff Q4 INH Last administered on 08/20/18at 05:23; Admin Dose 4 PUFF; Start 08/19/18 at 17:00 Lactated Ringer's 1,000 ml @ 80 mls/hr [id number] IV Last administered on 08/20/18at 05:38; Admin Dose 50 MLS/HR; Start 08/19/18 at 14:00 Piperacillin Sod/ Tazobactam Sod 100 ml @ 200 mls/hr Q8 IVPB Last administered on 08/20/18at 05:37; Admin Dose 200 MLS/HR; Start 08/19/18 at 14:00 Phenylephrine HCl 40 mg/Dextrose 250 ml @ 37.5 mls/hr TITRATE IV Last administered on 08/20/18at 00:41; Admin Dose 30 MLS/HR; Start 08/19/18 at 14:00 Vancomycin HCl (Vanco Iv Per Pharmacy) PER PHARMACY DOSING NOTE XX ; Start 08/19/18 at 14:30 Vancomycin/Sodium Chloride 250 ml @ 125 mls/hr Q24H IVPB ; Start 08/20/18 at 14:00 Insulin Aspart (Novolog Insulin Pen) NOVOLOG *MILD* ALGORI... Q4 SC Last administered on 08/20/18at 05:11; Admin Dose 1 UNIT; Start 08/19/18 at 22:00 Miscellaneous Information 1 ea NOTE XX ; Start 08/19/18 at 21:30 Glucose (Glutose) 15 gm Q15M PRN PO DECREASED GLUCOSE; Start 08/19/18 at 21:30 Glucose (Glutose) 22.5 gm Q15M PRN PO DECREASED GLUCOSE; Start 08/19/18 at 21:30 Dextrose (D50w Syringe) 25 ml Q15M PRN IV DECREASED GLUCOSE; Start 08/19/18 at 21:30 Dextrose (D50w Syringe) 50 ml Q15M PRN IV DECREASED GLUCOSE; Start 08/19/18 at 21:30 Glucagon (Glucagen) 1 mg Q15M PRN IM DECREASED GLUCOSE; Start 08/19/18 at 21:30 Glucose (Glutose) 15 gm Q15M PRN BUCCAL DECREASED GLUCOSE; Start 08/19/18 at 21:30 Sodium Chloride 500 ml @ 500 mls/hr Q1H ONCE IV ; Start 08/20/18 at 07:30; Stop 08/20/18 at 08:29 ADRIEL DELCID Aug 20, 2018 07:35
[2018-08-20] MEDS: METOPROLOL 25 MG TAB PO SCH ×2 (08:21→21:00)
--- NOTE | 2018-08-20 09:26 | CONS ---
Consult Date/Type/Reason Admit Date/Time Aug 16, 2018 at 14:10 Initial Consult Date 08/17/18 Type of Consult Pulmonary Requesting Provider: SANIA WHITTINGTON MD Date/Time of Note DATE: 08/20/18 TIME: 09:23 Subjective Patient continues mechanical ventilation. Continues low-dose vasopressor support not currently opening eyes or following commands. Chest tube in place with reexpansion of the right lung. Improved aeration left lung post bronchoscopy. Objective Vital Signs Date Temp Pulse Resp B/P (MAP) Pulse Ox O2 O2 Flow FiO2 Time Delivery Rate 08/20/18 102 08:00 08/20/18 108/64 98 Mechanical 06:00 (79) Ventilator 08/20/18 45 05:23 08/20/18 99.2 04:00 08/19/18 4.0 08:00 Intake and Output 08/19/18 08/19/18 08/20/18 1515:00 23:00 07:00 IntakeIntake Total 2094.375 ml 2118.75 ml 837.50 ml OutputOutput Total 185 ml 305 ml 320 ml BalanceBalance 1909.375 ml 1813.75 ml 517.50 ml Exam GENERAL: Frail elderly gentleman with mechanical ventilation. VITAL SIGNS: per chart NECK: Supple. No JVD or lymphadenopathy. CARDIAC EXAM: S1, S2. No added sounds or murmurs. CHEST: Diminished air entry bilaterally chest tube right lung. ABDOMEN: Soft, nontender. No guarding or rebound. EXTREMITIES: No cyanosis, clubbing or edema. NEUROLOGIC: Generalized weakness. Vent Setting Ventilator Support Mode: AC, VC plus Fraction of Inspired Oxygen pe: 45 Positive End Expiratory Pressu: 5.0 Results/Medications Result Diagram: 08/20/18 0400 08/20/18 0400 Results 24 hrs Laboratory Tests Test 08/19/18 10:23 08/19/18 10:29 08/19/18 11:45 08/19/18 13:36 Bedside Glucose 166 Blood Gas Blood arterial Blood arterial Specimen Source Arterial Blood 08/19/2018 10:45 08/19/2018 2:18: Date Drawn :51 AM 17 PM Arterial Blood 7.253 *L 7.408 pH (Temp corrected) Arterial Blood 65.5 H 35.7 pCO2 (Temp correct) Arterial Blood 47.4 *L 40.6 *L pO2 (Temp corrected) Arterial Blood 28.3 H 22.0 HCO3 Arterial Blood 0.2 -2.2 Base Excess Arterial Blood 78.3 L 78.9 L Oxygen Saturatio n Jarod Test ACCEPTAB N/A Arterial Blood Left Radial Right Radial Gas Puncture Site Arterial 0.2 0.6 Blood Carboxyhem oglobin Arterial Blood 0.4 0.3 Methemoglobin Blood Gas A-a O2 600.1 H 347.9 H Differential Oxyhemoglobin 77.8 L 78.2 L Percent Blood Gas 37.0 37.0 Temperature Blood Gas 20.0 24.0 Respiration Rate Blood Gas Actual 24 30 Respiration Rate Blood Gas MASK - BIPAP VENT - AC Modality FiO2 100.0 60.0 Blood Gas 12 Pressure Support Blood Gas 20/8 IPAP/EPAP Ratio Blood Gas TDICKENS R.N. TDICKENS R.N. Critical Value Read Back Blood Gas MDA MDA Notified Whom Blood Gas 08/19/2018 10:51 08/19/2018 2:25: Notified Time :29 AM 07 PM Sodium Level 141 Potassium Level 4.3 Chloride Level 110 Carbon Dioxide 27 Level Anion Gap 4 L Blood Urea 29 H Nitrogen Creatinine 0.48 L Est Glomerular Filtrat Rate mL/min Glucose Level 146 Calcium Level 9.3 Total Bilirubin 0.7 Direct Bilirubin 0.00 Indirect 0.7 Bilirubin Aspartate Amino 57 H Transf (AST/SGOT ) Alanine 14 Aminotransferase (ALT/SGPT) Alkaline 272 H Phosphatase Troponin I < 0.012 Total Protein 6.2 Albumin 3.0 L Globulin 3.20 Albumin/Globulin 0.93 Ratio Blood Gas Tidal 400.0 Volume Blood Gas Low 5.0 PEEP Setting Test 08/19/18 14:54 08/19/18 14:55 08/19/18 15:00 08/19/18 21:07 White Blood 2.7 L Count Red Blood Count 3.54 #L Hemoglobin 9.7 #L Hematocrit 30.9 #L Mean Corpuscular 87.3 Volume Mean Corpuscular 27.4 L Hemoglobin Mean Corpuscular 31.4 L Hemoglobin Glenny nt Red Cell 17.9 H Distribution Width Platelet Count 118 #L 118 L Mean Platelet Volume Immature 11.000 H Granulocytes % Neutrophils % Segmented 24 L Neutrophils % (Manual) Band Neutrophils 17 H % (Manual) Lymphocytes % Lymphocytes % 34 (Manual) Reactive 1 H Lymphocytes % (Manual) Monocytes % Eosinophils % Basophils % Basophils % 11 H (Manual) Myelocytes % 9 H (Manual) Promyelocytes % 4 H (Manual) Nucleated Red 35 H Blood Cells % Immature 0.300 H Granulocytes # Neutrophils # Neutrophils # 0.7 L (Manual) Band Neutrophils 0.4 # Lymphocytes 0.9 (Manual) Lymphocytes # Reactive 0.0 Lymphocytes # Monocytes # Eosinophils # Basophils # Basophils # 0.2 H (Manual) Myelocytes # 0.2 H Promyelocytes # 0.1 H Nucleated Red Blood Cells # Platelet DECREASED Estimate Giant Platelets 2 H Polychromasia 1+ Poikilocytosis 2+ Anisocytosis 1+ Microcytosis 1+ Ovalocytes 1+ Absolute 0.076 Reticulocyte Count Percent 2.2 H Reticulocyte Count Prothrombin Time 14.5 Prothrombin Time 1.1 Ratio INR 1.12 International Normalized Ratio Activated 38.8 H Partial Thrombop last Time Thrombin Time 16.6 Fibrinogen 611.0 H Plasma Fibrin >10 and <40 H Degradation Prod ucts D-Dimer > 30081.00 H Lactic Acid 2.2 *H Level Iron Level 43 Total Iron 132 L Binding Capacity Percent Iron 33 Saturation Ferritin 4600.0 H Troponin I 0.017 Vitamin B12 > 1000 H Level Folate > 20.0 H Urine Color PREETI Urine Clarity CLOUDY A Urine pH 6.0 Urine Specific 1.017 [place] Urine Ketones NEGATIVE Urine Nitrite NEGATIVE Urine Bilirubin NEGATIVE Urine NEGATIVE Urobilinogen Urine Leukocyte 2+ H Esterase Urine > 182 H Microscopic RBC Urine > 182 H Microscopic WBC Urine Squamous FEW Epithelial Cells Urine FEW A Transitional Epithelial Cells Urine Bacteria MODERATE Urine Mucus MODERATE Urine Hemoglobin 3+ H Urine Glucose 1+ H Urine Total 2+ H Protein Bedside Glucose 110 Test 08/19/18 22:04 08/20/18 01:37 08/20/18 04:00 08/20/18 05:00 Bedside Glucose 124 148 White Blood 3.0 L Count Red Blood Count 4.46 #L Hemoglobin 12.5 #L Hematocrit 37.9 #L Mean Corpuscular 85.0 Volume Mean Corpuscular 28.0 L Hemoglobin Mean Corpuscular 33.0 Hemoglobin Glenny nt Red Cell 17.0 H Distribution Width Platelet Count 80 #L Mean Platelet Volume Immature 7.900 H Granulocytes % Neutrophils % Segmented 73 Neutrophils % (Manual) Band Neutrophils 12 H % (Manual) Lymphocytes % Lymphocytes % 10 L (Manual) Monocytes % Monocytes % 4 (Manual) Eosinophils % Basophils % Myelocytes % 1 H (Manual) Nucleated Red 16.1 H Blood Cells % Immature 0.240 H Granulocytes # Neutrophils # Neutrophils # 2.2 (Manual) Band Neutrophils 0.3 # Lymphocytes 0.3 L (Manual) Lymphocytes # Monocytes # Monocytes # 0.1 L (Manual) Eosinophils # Basophils # Myelocytes # 0.0 Nucleated Red Blood Cells # Toxic 3+ Granulation Platelet DECREASED Estimate Polychromasia 3+ Anisocytosis 1+ Microcytosis 1+ Sodium Level 139 Potassium Level 4.7 Chloride Level 111 H Carbon Dioxide 22 Level Anion Gap 6 Blood Urea 35 H Nitrogen Creatinine 0.49 L Est Glomerular Filtrat Rate mL/min Glucose Level 160 Lactic Acid 2.1 *H Level Calcium Level 8.5 Phosphorus Level 2.7 Magnesium Level 2.0 Blood Gas Blood arterial Specimen Source Arterial Blood 08/20/2018 4:36: Date Drawn 36 AM Arterial Blood 7.446 pH (Temp corrected) Arterial Blood 28.4 L pCO2 (Temp correct) Arterial Blood 112.4 H pO2 (Temp corrected) Arterial Blood 19.1 L HCO3 Arterial Blood -3.4 L Base Excess Arterial Blood 98.3 Oxygen Saturatio n Jarod Test ACCEPTAB Arterial Blood Right Radial Gas Puncture Site Arterial 0.7 Blood Carboxyhem oglobin Arterial Blood 0.5 Methemoglobin Blood Gas A-a O2 212.2 H Differential Oxyhemoglobin 97.1 Percent Blood Gas 37.0 Temperature Blood Gas 24.0 Respiration Rate Blood Gas Actual 29 Respiration Rate Blood Gas VENT - AC Modality FiO2 50.0 Blood Gas Tidal 400.0 Volume Blood Gas Low 5.0 PEEP Setting Blood Gas 18.0 Inspiratory Pressure Blood Gas Notified Whom Blood Gas 08/20/2018 4:47: Notified Time 32 AM Test 08/20/18 05:07 08/20/18 08:58 Bedside Glucose 149 145 Medications Current Medications Miscellaneous Information (Pending Santyl Order For Wound Care) This patient tabares... PRN PRN XX WOUND CARE; Start 08/16/18 at 20:00 Methenamine (Hiprex) 1 gm BID PO Last administered on 08/19/18at 21:12; Admin Dose 1 GM; Start 08/16/18 at 21:00 Acetaminophen (Tylenol Tab) 500 mg Q4H PRN PO MILD PAIN(1-3)OR ELEVATED TEMP; Start 08/16/18 at 20:00 Ascorbic Acid (Vitamin C) 500 mg BID GTB Last administered on 08/19/18 21:11; Admin Dose 500 MG; Start 08/16/18 at 21:00 Zinc Sulfate (Zinc Sulfate) 220 mg DAILY PO Last administered on 08/19/18 09:45; Admin Dose 220 MG; Start 08/17/18 at 09:00 Prenat Multivit/ [place]/Iron/Folic Ac () 1 tab DAILY PO Last administered on 08/19/18 09:45; Admin Dose 1 TAB; Start 08/17/18 at 09:00 Bicalutamide (Casodex) 50 mg DAILY PO ; Start 08/17/18 at 09:00; Status Hold Dutasteride (Avodart) 0.5 mg DAILY PO Last administered on 08/19/18 09:46; Admin Dose 0.5 MG; Start 08/17/18 at 09:00 Metoprolol Tartrate (Lopressor) 25 mg BID PO Last administered on 08/19/18 09:46; Admin Dose 25 MG; Start 08/17/18 at 21:00 Fish Oil (Fish Oil) 1,000 mg BID PO Last administered on 08/19/18 21:11; Admin Dose 1,000 MG; Start 08/18/18 at 14:00 Norepinephrine 250 ml @ 1.875 mls/ hr TITRATE IV Last administered on 08/19/18 11:59; Admin Dose 1.875 MLS/HR; Start 08/19/18 at 11:00 Albuterol (Ventolin Hfa) 4 puff Q4H RESP THERAPY INH Last administered on 08/20/18 08:41; Admin Dose 4 PUFF; Start 08/19/18 at 17:00 Ipratropium [place] (Atrovent Hfa) 4 puff Q4 INH Last administered on 08/20/18 08:41; Admin Dose 4 PUFF; Start 08/19/18 at 17:00 Lactated Ringer's 1,000 ml @ 80 mls/hr [id number] IV Last administered on 08/20/18 05:38; Admin Dose 50 MLS/HR; Start 08/19/18 at 14:00 Piperacillin Sod/ Tazobactam Sod 100 ml @ 200 mls/hr Q8 IVPB Last administered on 08/20/18at 05:37; Admin Dose 200 MLS/HR; Start 08/19/18 at 14:00 Phenylephrine HCl 40 mg/Dextrose 250 ml @ 37.5 mls/hr TITRATE IV Last administered on 08/20/18at 09:04; Admin Dose 37.5 MLS/HR; Start 08/19/18 at 14:00 Vancomycin HCl (Vanco Iv Per Pharmacy) PER PHARMACY DOSING NOTE XX ; Start 08/19/18 at 14:30 Vancomycin/Sodium Chloride 250 ml @ 125 mls/hr Q24H IVPB ; Start 08/20/18 at 14:00 Insulin Aspart (Novolog Insulin Pen) NOVOLOG *MILD* ALGORI... Q4 SC Last administered on 08/20/18at 09:03; Admin Dose 1 UNIT; Start 08/19/18 at 22:00 Miscellaneous Information 1 ea NOTE XX ; Start 08/19/18 at 21:30 Glucose (Glutose) 15 gm Q15M PRN PO DECREASED GLUCOSE; Start 08/19/18 at 21:30 Glucose (Glutose) 22.5 gm Q15M PRN PO DECREASED GLUCOSE; Start 08/19/18 at 21:30 Dextrose (D50w Syringe) 25 ml Q15M PRN IV DECREASED GLUCOSE; Start 08/19/18 at 21:30 Dextrose (D50w Syringe) 50 ml Q15M PRN IV DECREASED GLUCOSE; Start 08/19/18 at 21:30 Glucagon (Glucagen) 1 mg Q15M PRN IM DECREASED GLUCOSE; Start 08/19/18 at 21:30 Glucose (Glutose) 15 gm Q15M PRN BUCCAL DECREASED GLUCOSE; Start 08/19/18 at 21:30 Assessment/Plan Hospital Course (Demo Recall) IMP: 1. Acute Hypercapnic/Hypoxemic Respiratory Failure 2/2 L mainstem mucus plugging with complete left lung atelectasis s/p intubation. Resulting positive pressure ventilation thereafter likely led to a right-sided pneumothorax with tension physiology. 2. Tension PTX, status post right chest tube. 3. Complete Left Lung ATX--2/2 mucus plugging, now re-expanded. Post bronchoscopy. 4. Intermittent PSVT 5. Right lung pneumonia--likely aspiration 6. Possible UTI 7. 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 Metastatic prostate Cancer 9. Severe Cachexia/deconditioning 10. Pancytopenia RECS: 1. Vent support-->change Vt to lung protective strategy to prevent further barotrauma 2. Continue chest tube suction. 3. Continue vasopressor support titrate to keep map greater than 65 4. IVF resuscitation with LR 5. Broad-spectrum abx 6. [place]-culture 7. Monitor H&H posttransfusion 8. Serial lactic acid 9 DIC panel 10 Serial lactates 45 minutes min cc time Case d/w family in detail LUIZ RAMOS MD, [facility] Aug 20, 2018 09:26
[2018-08-20] MEDS: ASCORBIC ACID 500 MG TAB GTB SCH ×2 (09:49→21:30)
[2018-08-20] MEDS: FISH OIL 1,000 MG CAP PO SCH ×2 (09:49→21:00)
--- NOTE | 2018-08-20 11:22 | CONS ---
Assessment/Plan Assessment/Plan Hospital Course (Demo Recall) IMPRESSION: 1. Abnormal electrocardiogram, assess for acute coronary syndrome.-neg trop x 2. NL EF by echo this admit 2. Cardiac arrhythmia at this time, most consistent with sinus arrhythmia.-mild tachycardia, sinus arrythmia. NL TSH- now with increased S tachycardia today-? due to pain/resp distress/anxiety/hypotension 3. Hypotension-now on neosynephrine 4. Dysphagia, status post PEG placement today. 5. Failure to thrive. 6. History of prostate carcinoma. 7. History of aplastic anemia-currently improved 8. Hypernatremia. 10. Pancytopenia-currently overall improved Hgb 11. Resp failure s/p intubation 12. Pleural effusion s/p thoracentesis c/b PTX with CT now 14. PNA Recc: -Now in ICU -serial ecg's -follow Hgb closely and transfuse as necessary -Continue avodart -Follow CT output -Continue abx's and f/u cx data -wean bria as tolerated -Continue IVF and follow volume status -Follow HR/BP closely Consultation Date/Type/Reason Admit Date/Time Aug 16, 2018 at 14:10 Initial Consult Date 08/17/18 Type of Consult Cardiology Reason for Consultation Hypotension/tachycardia Requesting Provider: SANIA WHITTINGTON MD Date/Time of Note DATE: 08/20/18 TIME: 11:11 Exam/Review of Systems Vital Signs Vitals Vital Signs Date Temp Pulse Resp B/P (MAP) Pulse Ox O2 O2 Flow FiO2 Time Delivery Rate 08/20/18 102 08:00 08/20/18 28 108/64 98 Mechanical 06:00 (79) Ventilator 08/20/18 45 05:23 08/20/18 99.2 04:00 08/19/18 4.0 08:00 Intake and Output 08/19/18 08/19/18 08/20/18 1515:00 23:00 07:00 IntakeIntake Total 2094.375 ml 2118.75 ml 837.50 ml OutputOutput Total 185 ml 305 ml 320 ml BalanceBalance 1909.375 ml 1813.75 ml 517.50 ml Exam Exam Review of Systems: CONSTITUTIONAL: No fevers, chills. PULMONARY:intubated CARDIOVASCULAR: No obvious chest pain GASTROINTESTINAL: No nausea/vomiting. GENITOURINARY: No hematuria/dysuria. MUSCULOSKELETAL: No obvious myagias/arthalgias. PSYCHIATRIC: no documented depression. NEUROLOGIC: encephalopathic Constitutional: other (encephalopathic) Psych: no complaints Head: normocephalic ENMT: intubated Neck: supple, jvd (9 cm water) Respiratory: diminished breath sounds Cardiovascular: regular rate and rhythm Gastrointestinal: soft, non-tender Musculoskeletal: muscle tone (normal) Extremities: edema (none) Neurological: other (No focal defiicts) Labs Result Diagram: 08/20/18 0400 08/20/18 0400 Results 24hrs Laboratory Tests Test 08/19/18 11:45 08/19/18 13:36 08/19/18 14:54 08/19/18 14:55 Sodium Level 141 Potassium Level 4.3 Chloride Level 110 Carbon Dioxide 27 Level Anion Gap 4 L Blood Urea 29 H Nitrogen Creatinine 0.48 L Est Glomerular Filtrat Rate mL/min Glucose Level 146 Calcium Level 9.3 Total Bilirubin 0.7 Direct Bilirubin 0.00 Indirect 0.7 Bilirubin Aspartate Amino 57 H Transf (AST/SGOT ) Alanine 14 Aminotransferase (ALT/SGPT) Alkaline 272 H Phosphatase Troponin I < 0.012 0.017 Total Protein 6.2 Albumin 3.0 L Globulin 3.20 Albumin/Globulin 0.93 Ratio Blood Gas Blood arterial Specimen Source Arterial Blood 08/19/2018 2:18: Date Drawn 17 PM Arterial Blood 7.408 pH (Temp corrected) Arterial Blood 35.7 pCO2 (Temp correct) Arterial Blood 40.6 *L pO2 (Temp corrected) Arterial Blood 22.0 HCO3 Arterial Blood -2.2 Base Excess Arterial Blood 78.9 L Oxygen Saturatio n Jarod Test N/A Arterial Blood Right Radial Gas Puncture Site Arterial 0.6 Blood Carboxyhem oglobin Arterial Blood 0.3 Methemoglobin Blood Gas A-a O2 347.9 H Differential Oxyhemoglobin 78.2 L Percent Blood Gas 37.0 Temperature Blood Gas 24.0 Respiration Rate Blood Gas Actual 30 Respiration Rate Blood Gas VENT - AC Modality FiO2 60.0 Blood Gas Tidal 400.0 Volume Blood Gas Low 5.0 PEEP Setting Blood Gas TDICKENS R.N. Critical Value Read Back Blood Gas MDA Notified Whom Blood Gas 08/19/2018 2:25: Notified Time 07 PM White Blood 2.7 L Count Red Blood Count 3.54 #L Hemoglobin 9.7 #L Hematocrit 30.9 #L Mean Corpuscular 87.3 Volume Mean Corpuscular 27.4 L Hemoglobin Mean Corpuscular 31.4 L Hemoglobin Glenny nt Red Cell 17.9 H Distribution Width Platelet Count 118 #L 118 L Mean Platelet Volume Immature 11.000 H Granulocytes % Neutrophils % Segmented 24 L Neutrophils % (Manual) Band Neutrophils 17 H % (Manual) Lymphocytes % Lymphocytes % 34 (Manual) Reactive 1 H Lymphocytes % (Manual) Monocytes % Eosinophils % Basophils % Basophils % 11 H (Manual) Myelocytes % 9 H (Manual) Promyelocytes % 4 H (Manual) Nucleated Red 35 H Blood Cells % Immature 0.300 H Granulocytes # Neutrophils # Neutrophils # 0.7 L (Manual) Band Neutrophils 0.4 # Lymphocytes 0.9 (Manual) Lymphocytes # Reactive 0.0 Lymphocytes # Monocytes # Eosinophils # Basophils # Basophils # 0.2 H (Manual) Myelocytes # 0.2 H Promyelocytes # 0.1 H Nucleated Red Blood Cells # Platelet DECREASED Estimate Giant Platelets 2 H Polychromasia 1+ Poikilocytosis 2+ Anisocytosis 1+ Microcytosis 1+ Ovalocytes 1+ Absolute 0.076 Reticulocyte Count Percent 2.2 H Reticulocyte Count Prothrombin Time 14.5 Prothrombin Time 1.1 Ratio INR 1.12 International Normalized Ratio Activated 38.8 H Partial Thrombop last Time Thrombin Time 16.6 Fibrinogen 611.0 H Plasma Fibrin >10 and <40 H Degradation Prod ucts D-Dimer > 66260.00 H Lactic Acid 2.2 *H Level Iron Level 43 Total Iron 132 L Binding Capacity Percent Iron 33 Saturation Ferritin 4600.0 H Vitamin B12 > 1000 H Level Folate > 20.0 H Test 08/19/18 15:00 08/19/18 21:07 08/19/18 22:04 08/20/18 01:37 Urine Color PREETI Urine Clarity CLOUDY A Urine pH 6.0 Urine Specific 1.017 [place] Urine Ketones NEGATIVE Urine Nitrite NEGATIVE Urine Bilirubin NEGATIVE Urine NEGATIVE Urobilinogen Urine Leukocyte 2+ H Esterase Urine > 182 H Microscopic RBC Urine > 182 H Microscopic WBC Urine Squamous FEW Epithelial Cells Urine FEW A Transitional Epithelial Cells Urine Bacteria MODERATE Urine Mucus MODERATE Urine Hemoglobin 3+ H Urine Glucose 1+ H Urine Total 2+ H Protein Bedside Glucose 110 124 148 Test 08/20/18 04:00 08/20/18 05:00 08/20/18 05:07 08/20/18 08:58 White Blood 3.0 L Count Red Blood Count 4.46 #L Hemoglobin 12.5 #L Hematocrit 37.9 #L Mean Corpuscular 85.0 Volume Mean Corpuscular 28.0 L Hemoglobin Mean Corpuscular 33.0 Hemoglobin Glenny nt Red Cell 17.0 H Distribution Width Platelet Count 80 #L Mean Platelet Volume Immature 7.900 H Granulocytes % Neutrophils % Segmented 73 Neutrophils % (Manual) Band Neutrophils 12 H % (Manual) Lymphocytes % Lymphocytes % 10 L (Manual) Monocytes % Monocytes % 4 (Manual) Eosinophils % Basophils % Myelocytes % 1 H (Manual) Nucleated Red 16.1 H Blood Cells % Immature 0.240 H Granulocytes # Neutrophils # Neutrophils # 2.2 (Manual) Band Neutrophils 0.3 # Lymphocytes 0.3 L (Manual) Lymphocytes # Monocytes # Monocytes # 0.1 L (Manual) Eosinophils # Basophils # Myelocytes # 0.0 Nucleated Red Blood Cells # Toxic 3+ Granulation Platelet DECREASED Estimate Polychromasia 3+ Anisocytosis 1+ Microcytosis 1+ Sodium Level 139 Potassium Level 4.7 Chloride Level 111 H Carbon Dioxide 22 Level Anion Gap 6 Blood Urea 35 H Nitrogen Creatinine 0.49 L Est Glomerular Filtrat Rate mL/min Glucose Level 160 Lactic Acid 2.1 *H Level Calcium Level 8.5 Phosphorus Level 2.7 Magnesium Level 2.0 Blood Gas Blood arterial Specimen Source Arterial Blood 08/20/2018 4:36: Date Drawn 36 AM Arterial Blood 7.446 pH (Temp corrected) Arterial Blood 28.4 L pCO2 (Temp correct) Arterial Blood 112.4 H pO2 (Temp corrected) Arterial Blood 19.1 L HCO3 Arterial Blood -3.4 L Base Excess Arterial Blood 98.3 Oxygen Saturatio n Jarod Test ACCEPTAB Arterial Blood Right Radial Gas Puncture Site Arterial 0.7 Blood Carboxyhem oglobin Arterial Blood 0.5 Methemoglobin Blood Gas A-a O2 212.2 H Differential Oxyhemoglobin 97.1 Percent Blood Gas 37.0 Temperature Blood Gas 24.0 Respiration Rate Blood Gas Actual 29 Respiration Rate Blood Gas VENT - AC Modality FiO2 50.0 Blood Gas Tidal 400.0 Volume Blood Gas Low 5.0 PEEP Setting Blood Gas 18.0 Inspiratory Pressure Blood Gas LW Notified Whom Blood Gas 08/20/2018 4:47: Notified Time 32 AM Bedside Glucose 149 145 Medications Medications Current Medications Miscellaneous Information (Pending Santyl Order For Wound Care) This patient tabares... PRN PRN XX WOUND CARE; Start 08/16/18 at 20:00 Acetaminophen (Tylenol Tab) 500 mg Q4H PRN PO MILD PAIN(1-3)OR ELEVATED TEMP; Start 08/16/18 at 20:00 Ascorbic Acid (Vitamin C) 500 mg BID GTB Last administered on 08/20/18 09:49; Admin Dose 500 MG; Start 08/16/18 at 21:00 Bicalutamide (Casodex) 50 mg DAILY PO ; Start 08/17/18 at 09:00; Status Hold Metoprolol Tartrate (Lopressor) 25 mg BID PO Last administered on 08/19/18 09:46; Admin Dose 25 MG; Start 08/17/18 at 21:00 Fish Oil (Fish Oil) 1,000 mg BID PO Last administered on 08/20/18 09:49; Admin Dose 1,000 MG; Start 08/18/18 at 14:00 Norepinephrine 250 ml @ 1.875 mls/ hr TITRATE IV Last administered on 08/19/18 11:59; Admin Dose 1.875 MLS/HR; Start 08/19/18 at 11:00 Albuterol (Ventolin Hfa) 4 puff Q4H RESP THERAPY INH Last administered on 08/20/18 08:41; Admin Dose 4 PUFF; Start 08/19/18 at 17:00 Ipratropium [place] (Atrovent Hfa) 4 puff Q4 INH Last administered on 08/20/18 08:41; Admin Dose 4 PUFF; Start 08/19/18 at 17:00 Lactated Ringer's 1,000 ml @ 80 mls/hr [id number] IV Last administered on 08/20/18 05:38; Admin Dose 50 MLS/HR; Start 08/19/18 at 14:00 Piperacillin Sod/ Tazobactam Sod 100 ml @ 200 mls/hr Q8 IVPB Last administered on 08/20/18 05:37; Admin Dose 200 MLS/HR; Start 08/19/18 at 14:00 Phenylephrine HCl 40 mg/Dextrose 250 ml @ 37.5 mls/hr TITRATE IV Last administered on 4/29/19at 09:04; Admin Dose 37.5 MLS/HR; Start 08/19/18 at 14:00 Vancomycin HCl (Vanco Iv Per Pharmacy) PER PHARMACY DOSING NOTE XX ; Start 08/19/18 at 14:30 Vancomycin/Sodium Chloride 250 ml @ 125 mls/hr Q24H IVPB ; Start 08/20/18 at 14:00 Insulin Aspart (Novolog Insulin Pen) NOVOLOG *MILD* ALGORI... Q4 SC Last administered on 08/20/18at 09:03; Admin Dose 1 UNIT; Start 08/19/18 at 22:00 Miscellaneous Information 1 ea NOTE XX ; Start 08/19/18 at 21:30 Glucose (Glutose) 15 gm Q15M PRN PO DECREASED GLUCOSE; Start 08/19/18 at 21:30 Glucose (Glutose) 22.5 gm Q15M PRN PO DECREASED GLUCOSE; Start 08/19/18 at 21:30 Dextrose (D50w Syringe) 25 ml Q15M PRN IV DECREASED GLUCOSE; Start 08/19/18 at 21:30 Dextrose (D50w Syringe) 50 ml Q15M PRN IV DECREASED GLUCOSE; Start 08/19/18 at 21:30 Glucagon (Glucagen) 1 mg Q15M PRN IM DECREASED GLUCOSE; Start 08/19/18 at 21:30 Glucose (Glutose) 15 gm Q15M PRN BUCCAL DECREASED GLUCOSE; Start 08/19/18 at 21:30 Methenamine (Hiprex) 1 gm BID GTB ; Start 08/20/18 at 21:00 Prenat Multivit/ [place]/Iron/Folic Ac () 1 tab DAILY GTB ; Start 08/21/18 at 09:00 Zinc Sulfate (Zinc Sulfate) 220 mg DAILY GTB ; Start 08/21/18 at 09:00 Finasteride (Proscar) 5 mg DAILY GTB ; Start 08/20/18 at 10:00; Status LUIS ALBERTO ROBERSON Aug 20, 2018 11:22
[2018-08-20] MEDS: FINASTERIDE 5 MG TAB GTB SCH (13:31)
[2018-08-20] MEDS: ACETAMINOPHEN 500 MG TAB PO PRN (13:33)
--- NOTE | 2018-08-20 13:41 | CONS ---
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, in ICU, intubated will try to call son again given current situation and age and frailty, hospice recommended #VDRF management per ICU #pleural effusion, s/p right-sided thoracentesis cytology pending #pancytopenia suspect either due to recent tx or met prostate ca with marrow infiltration keep hgb >7 plt >10K Consultation Date/Type/Reason Admit Date/Time Aug 16, 2018 at 14:10 Initial Consult Date 08/17/18 Requesting Provider: SANIA WHITTINGTON MD Date/Time of Note DATE: 08/20/18 TIME: 13:39 24 HR Interval Summary Free Text/Dictation on vent Exam/Review of Systems Exam Vitals Vital Signs Date Temp Pulse Resp B/P (MAP) Pulse Ox O2 O2 Flow FiO2 Time Delivery Rate 08/20/18 108 12:00 08/20/18 26 98 30 11:00 08/20/18 115/59 08:45 (77) 08/20/18 100.2 [place] 08:00 l Ventilato r 08/19/18 4.0 08:00 Intake and Output 08/19/18 08/19/18 08/20/18 1515:00 23:00 07:00 IntakeIntake Total 2094.375 ml 2118.75 ml 837.50 ml OutputOutput Total 185 ml 305 ml 320 ml BalanceBalance 1909.375 ml 1813.75 ml 517.50 ml Constitutional: frail Results Result Diagram: 08/20/18 0400 08/20/18 0400 Results 24hrs Laboratory Tests Test 08/19/18 14:54 08/19/18 14:55 08/19/18 15:00 08/19/18 21:07 White Blood 2.7 L Count Red Blood Count 3.54 #L Hemoglobin 9.7 #L Hematocrit 30.9 #L Mean Corpuscular 87.3 Volume Mean Corpuscular 27.4 L Hemoglobin Mean Corpuscular 31.4 L Hemoglobin Glenny nt Red Cell 17.9 H Distribution Width Platelet Count 118 #L 118 L Mean Platelet Volume Immature 11.000 H Granulocytes % Neutrophils % Segmented 24 L Neutrophils % (Manual) Band Neutrophils 17 H % (Manual) Lymphocytes % Lymphocytes % 34 (Manual) Reactive 1 H Lymphocytes % (Manual) Monocytes % Eosinophils % Basophils % Basophils % 11 H (Manual) Myelocytes % 9 H (Manual) Promyelocytes % 4 H (Manual) Nucleated Red 35 H Blood Cells % Immature 0.300 H Granulocytes # Neutrophils # Neutrophils # 0.7 L (Manual) Band Neutrophils 0.4 # Lymphocytes 0.9 (Manual) Lymphocytes # Reactive 0.0 Lymphocytes # Monocytes # Eosinophils # Basophils # Basophils # 0.2 H (Manual) Myelocytes # 0.2 H Promyelocytes # 0.1 H Nucleated Red Blood Cells # Platelet DECREASED Estimate Giant Platelets 2 H Polychromasia 1+ Poikilocytosis 2+ Anisocytosis 1+ Microcytosis 1+ Ovalocytes 1+ Absolute 0.076 Reticulocyte Count Percent 2.2 H Reticulocyte Count Prothrombin Time 14.5 Prothrombin Time 1.1 Ratio INR 1.12 International Normalized Ratio Activated 38.8 H Partial Thrombop last Time Thrombin Time 16.6 Fibrinogen 611.0 H Plasma Fibrin >10 and <40 H Degradation Prod ucts D-Dimer > 37220.00 H Lactic Acid 2.2 *H Level Iron Level 43 Total Iron 132 L Binding Capacity Percent Iron 33 Saturation Ferritin 4600.0 H Troponin I 0.017 Vitamin B12 > 1000 H Level Folate > 20.0 H Urine Color PREETI Urine Clarity CLOUDY A Urine pH 6.0 Urine Specific 1.017 [place] Urine Ketones NEGATIVE Urine Nitrite NEGATIVE Urine Bilirubin NEGATIVE Urine NEGATIVE Urobilinogen Urine Leukocyte 2+ H Esterase Urine > 182 H Microscopic RBC Urine > 182 H Microscopic WBC Urine Squamous FEW Epithelial Cells Urine FEW A Transitional Epithelial Cells Urine Bacteria MODERATE Urine Mucus MODERATE Urine Hemoglobin 3+ H Urine Glucose 1+ H Urine Total 2+ H Protein Bedside Glucose 110 Test 08/19/18 22:04 08/20/18 01:37 08/20/18 04:00 08/20/18 05:00 Bedside Glucose 124 148 White Blood 3.0 L Count Red Blood Count 4.46 #L Hemoglobin 12.5 #L Hematocrit 37.9 #L Mean Corpuscular 85.0 Volume Mean Corpuscular 28.0 L Hemoglobin Mean Corpuscular 33.0 Hemoglobin Glenny nt Red Cell 17.0 H Distribution Width Platelet Count 80 #L Mean Platelet Volume Immature 7.900 H Granulocytes % Neutrophils % Segmented 73 Neutrophils % (Manual) Band Neutrophils 12 H % (Manual) Lymphocytes % Lymphocytes % 10 L (Manual) Monocytes % Monocytes % 4 (Manual) Eosinophils % Basophils % Myelocytes % 1 H (Manual) Nucleated Red 16.1 H Blood Cells % Immature 0.240 H Granulocytes # Neutrophils # Neutrophils # 2.2 (Manual) Band Neutrophils 0.3 # Lymphocytes 0.3 L (Manual) Lymphocytes # Monocytes # Monocytes # 0.1 L (Manual) Eosinophils # Basophils # Myelocytes # 0.0 Nucleated Red Blood Cells # Toxic 3+ Granulation Platelet DECREASED Estimate Polychromasia 3+ Anisocytosis 1+ Microcytosis 1+ Sodium Level 139 Potassium Level 4.7 Chloride Level 111 H Carbon Dioxide 22 Level Anion Gap 6 Blood Urea 35 H Nitrogen Creatinine 0.49 L Est Glomerular Filtrat Rate mL/min Glucose Level 160 Lactic Acid 2.1 *H Level Calcium Level 8.5 Phosphorus Level 2.7 Magnesium Level 2.0 Blood Gas Blood arterial Specimen Source Arterial Blood 08/20/2018 4:36: Date Drawn 36 AM Arterial Blood 7.446 pH (Temp corrected) Arterial Blood 28.4 L pCO2 (Temp correct) Arterial Blood 112.4 H pO2 (Temp corrected) Arterial Blood 19.1 L HCO3 Arterial Blood -3.4 L Base Excess Arterial Blood 98.3 Oxygen Saturatio n Jarod Test ACCEPTAB Arterial Blood Right Radial Gas Puncture Site Arterial 0.7 Blood Carboxyhem oglobin Arterial Blood 0.5 Methemoglobin Blood Gas A-a O2 212.2 H Differential Oxyhemoglobin 97.1 Percent Blood Gas 37.0 Temperature Blood Gas 24.0 Respiration Rate Blood Gas Actual 29 Respiration Rate Blood Gas VENT - AC Modality FiO2 50.0 Blood Gas Tidal 400.0 Volume Blood Gas Low 5.0 PEEP Setting Blood Gas 18.0 Inspiratory Pressure Blood Gas LW Notified Whom Blood Gas 08/20/2018 4:47: Notified Time 32 AM Test 08/20/18 05:07 08/20/18 08:58 Bedside Glucose 149 145 Medications Medication Current Medications Miscellaneous Information (Pending Santyl Order For Wound Care) This patient tabares... PRN PRN XX WOUND CARE; Start 08/16/18 at 20:00 Acetaminophen (Tylenol Tab) 500 mg Q4H PRN PO MILD PAIN(1-3)OR ELEVATED TEMP; Start 08/16/18 at 20:00 Ascorbic Acid (Vitamin C) 500 mg BID GTB Last administered on 08/20/18 09:49; Admin Dose 500 MG; Start 08/16/18 at 21:00 Bicalutamide (Casodex) 50 mg DAILY PO ; Start 08/17/18 at 09:00; Status Hold Metoprolol Tartrate (Lopressor) 25 mg BID PO Last administered on 08/19/18at 0 9:46; Admin Dose 25 MG; Start 08/17/18 at 21:00 Fish Oil (Fish Oil) 1,000 mg BID PO Last administered on 08/20/18 09:49; Admin Dose 1,000 MG; Start 08/18/18 at 14:00 Norepinephrine 250 ml @ 1.875 mls/ hr TITRATE IV Last administered on 08/19/18 11:59; Admin Dose 1.875 MLS/HR; Start 08/19/18 at 11:00 Albuterol (Ventolin Hfa) 4 puff Q4H RESP THERAPY INH Last administered on 08/20/18 08:41; Admin Dose 4 PUFF; Start 08/19/18 at 17:00 Ipratropium [place] (Atrovent Hfa) 4 puff Q4 INH Last administered on 08/20/18 08:41; Admin Dose 4 PUFF; Start 08/19/18 at 17:00 Lactated Ringer's 1,000 ml @ 80 mls/hr [id number] IV Last administered on 08/20/18 05:38; Admin Dose 50 MLS/HR; Start 08/19/18 at 14:00 Piperacillin Sod/ Tazobactam Sod 100 ml @ 200 mls/hr Q8 IVPB Last administered on 08/20/18 05:37; Admin Dose 200 MLS/HR; Start 08/19/18 at 14:00 Phenylephrine HCl 40 mg/Dextrose 250 ml @ 37.5 mls/hr TITRATE IV Last administered on 08/20/18 09:04; Admin Dose 37.5 MLS/HR; Start 08/19/18 at 14:00 Vancomycin HCl (Vanco Iv Per Pharmacy) PER PHARMACY DOSING NOTE XX ; Start 08/19/18 at 14:30 Vancomycin/Sodium Chloride 250 ml @ 125 mls/hr Q24H IVPB ; Start 08/20/18 at 14:00 Insulin Aspart (Novolog Insulin Pen) NOVOLOG *MILD* ALGORI... Q4 SC Last administered on 08/20/18at 09:03; Admin Dose 1 UNIT; Start 08/19/18 at 22:00 Miscellaneous Information 1 ea NOTE XX ; Start 08/19/18 at 21:30 Glucose (Glutose) 15 gm Q15M PRN PO DECREASED GLUCOSE; Start 08/19/18 at 21:30 Glucose (Glutose) 22.5 gm Q15M PRN PO DECREASED GLUCOSE; Start 08/19/18 at 21:30 Dextrose (D50w Syringe) 25 ml Q15M PRN IV DECREASED GLUCOSE; Start 08/19/18 at 21:30 Dextrose (D50w Syringe) 50 ml Q15M PRN IV DECREASED GLUCOSE; Start 08/19/18 at 21:30 Glucagon (Glucagen) 1 mg Q15M PRN IM DECREASED GLUCOSE; Start 08/19/18 at 21:30 Glucose (Glutose) 15 gm Q15M PRN BUCCAL DECREASED GLUCOSE; Start 08/19/18 at 21:30 Methenamine (Hiprex) 1 gm BID GTB ; Start 08/20/18 at 21:00 Prenat Multivit/ [place]/Iron/Folic Ac () 1 tab DAILY GTB ; Start 08/21/18 at 09:00 Zinc Sulfate (Zinc Sulfate) 220 mg DAILY GTB ; Start 08/21/18 at 09:00 Finasteride (Proscar) 5 mg DAILY GTB ; Start 08/20/18 at 10:00 KRYSTIN FU Aug 20, 2018 13:41
[2018-08-20] MEDS: VANCOMYCIN 750 MG (PMX) 250 ML IVPB SCH (15:00)
[2018-08-20] MEDS ORDERED: ETOMIDATE 20 MG INJ ONE (17:00)
[2018-08-20] MEDS ORDERED: DIGOXIN 500 MCG INJ IV ONE (18:00)
--- NOTE | 2018-08-20 18:59 | PN ---
Date/Time of Note Date/Time of Note DATE: 08/20/18 TIME: 18:44 Assessment/Plan VTE Prophylaxis Risk score (from [facility])>0 risk: 14 SCD applied (from [facility]): Yes SCD contraindicated: other Pharmacological prophylaxis: other Pharm contraindication: other Lines/Catheters IV Catheter Type (from [place]): Central Line Central line still needed: Yes Urinary Cath still in place: Yes Reason Cath still needed: urinary retention Assessment/Plan Assessment/Plan 1. Acute hypoxemic hypercarbic respiratory failure. - ABG revealed pH 7.25, pCO2 of 65.4 and pO2 of 47. - remains intubated and is saturating 96% on FiO2 of 100%. - sp chest tube. 2. Bilateral pleural effusion, status post recent right-sided thoracentesis, predominantly lymphocytic exudate. Cytology is pending. 3. Metastatic prostate cancer with poor prognosis. Palliative care was recommended to the family; however, they requested treatment. -The patient was also seen by Dr. Jared Melendez from oncology standpoint 4. Dysphagia, status post jejunostomy tube which is being used for feeding. The patient is being followed by Dr. Mendez from GI standpoint. , Dr. Powell from cardiac standpoint. Echo revealed EF of 55% to 60%. The patient remains critically ill. 5. The patient's pancytopenia appears to be from metastatic prostate cancer. Meanwhile, we will continue IV Zosyn for possible pneumonia. 6. For severe hypophosphatemia, the patient will receive sodium phosphate. We will do followup labs. Total Critical care time spent is 45 mins. Júnior Malin Result Diagram: 08/20/18 0400 08/20/18 0400 Results 24hrs Laboratory Tests Test 08/19/18 21:07 08/19/18 22:04 08/20/18 01:37 08/20/18 04:00 Bedside Glucose 110 124 148 White Blood Count 3.0 L Red Blood Count 4.46 #L Hemoglobin 12.5 #L Hematocrit 37.9 #L Mean Corpuscular 85.0 Volume Mean Corpuscular 28.0 L Hemoglobin Mean Corpuscular 33.0 Hemoglobin Concen t Red Cell 17.0 H Distribution Width Platelet Count 80 #L Mean Platelet Volume Immature 7.900 H Granulocytes % Neutrophils % Segmented 73 Neutrophils % (Manual) Band Neutrophils 12 H % (Manual) Lymphocytes % Lymphocytes % 10 L (Manual) Monocytes % Monocytes % 4 (Manual) Eosinophils % Basophils % Myelocytes % 1 H (Manual) Nucleated Red 16.1 H Blood Cells % Immature 0.240 H Granulocytes # Neutrophils # Neutrophils # 2.2 (Manual) Band Neutrophils 0.3 # Lymphocytes 0.3 L (Manual) Lymphocytes # Monocytes # Monocytes # 0.1 L (Manual) Eosinophils # Basophils # Myelocytes # 0.0 Nucleated Red Blood Cells # Toxic Granulation 3+ Platelet Estimate DECREASED Polychromasia 3+ Anisocytosis 1+ Microcytosis 1+ Sodium Level 139 Potassium Level 4.7 Chloride Level 111 H Carbon Dioxide 22 Level Anion Gap 6 Blood Urea 35 H Nitrogen Creatinine 0.49 L Est Glomerular Filtrat Rate mL/min Glucose Level 160 Lactic Acid Level 2.1 *H Calcium Level 8.5 Phosphorus Level 2.7 Magnesium Level 2.0 Test 08/20/18 05:00 08/20/18 05:07 08/20/18 08:58 08/20/18 13:35 Blood Gas Blood arterial Specimen Source Arterial Blood 08/20/2018 4:36:3 Date Drawn 6 AM Arterial Blood pH 7.446 (Temp corrected) Arterial Blood 28.4 L pCO2 (Temp correct) Arterial Blood 112.4 H pO2 (Temp corrected) Arterial Blood 19.1 L HCO3 Arterial Blood -3.4 L Base Excess Arterial Blood 98.3 Oxygen Saturation Jarod Test ACCEPTAB Arterial Blood Right Radial Gas Puncture Site Arterial 0.7 Blood Carboxyhemo globin Arterial Blood 0.5 Methemoglobin Blood Gas A-a O2 212.2 H Differential Oxyhemoglobin 97.1 Percent Blood Gas 37.0 Temperature Blood Gas 24.0 Respiration Rate Blood Gas Actual 29 Respiration Rate Blood Gas VENT - AC Modality FiO2 50.0 Blood Gas Tidal 400.0 Volume Blood Gas Low 5.0 PEEP Setting Blood Gas 18.0 Inspiratory Pressure Blood Gas LW Notified Whom Blood Gas 08/20/2018 4:47:3 Notified Time 2 AM Bedside Glucose 149 145 151 Test 08/20/18 17:00 08/20/18 17:11 Stool Occult NEGATIVE Blood Bedside Glucose 137 Subjective 24 Hr Interval Summary Free Text/Dictation -Patient continues mechanical ventilation. -on low-dose vasopressor support -non responsive at present -sp bronchoscopy. - right Chest tube noted Family at bed side- all Qs answered. dw staff Subjective hx not possible: pt non-verbal Constitutional: requiring IVF, requiring O2 Exam/Review of Systems Exam Vitals Vital Signs Date Temp Pulse Resp B/P (MAP) Pulse Ox O2 O2 Flow FiO2 Time Delivery Rate 08/20/18 102 25 96 30 16:48 08/20/18 100/58 Mechanical 15:00 (72) Ventilator 08/20/18 99.0 14:27 08/19/18 4.0 08:00 Intake and Output 08/19/18 08/19/18 08/20/18 1515:00 23:00 07:00 IntakeIntake Total 2094.375 ml 2118.75 ml 837.50 ml OutputOutput Total 185 ml 305 ml 320 ml BalanceBalance 1909.375 ml 1813.75 ml 517.50 ml Constitutional: well developed, non-verbal, frail Psych: nl mood/affect Eyes: nl lids, nl sclera ENMT: nl external ears & nose Neck: supple Respiratory: diminished breath sounds Cardiovascular: nl pulses, other (s1s2) Gastrointestinal: soft Musculoskeletal: muscle weakness, range of motion Extremities: normal pulses Neurological: unresponsive Results Results 24hrs Laboratory Tests Test 08/19/18 21:07 08/19/18 22:04 08/20/18 01:37 08/20/18 04:00 Bedside Glucose 110 124 148 White Blood Count 3.0 L Red Blood Count 4.46 #L Hemoglobin 12.5 #L Hematocrit 37.9 #L Mean Corpuscular 85.0 Volume Mean Corpuscular 28.0 L Hemoglobin Mean Corpuscular 33.0 Hemoglobin Concen t Red Cell 17.0 H Distribution Width Platelet Count 80 #L Mean Platelet Volume Immature 7.900 H Granulocytes % Neutrophils % Segmented 73 Neutrophils % (Manual) Band Neutrophils 12 H % (Manual) Lymphocytes % Lymphocytes % 10 L (Manual) Monocytes % Monocytes % 4 (Manual) Eosinophils % Basophils % Myelocytes % 1 H (Manual) Nucleated Red 16.1 H Blood Cells % Immature 0.240 H Granulocytes # Neutrophils # Neutrophils # 2.2 (Manual) Band Neutrophils 0.3 # Lymphocytes 0.3 L (Manual) Lymphocytes # Monocytes # Monocytes # 0.1 L (Manual) Eosinophils # Basophils # Myelocytes # 0.0 Nucleated Red Blood Cells # Toxic Granulation 3+ Platelet Estimate DECREASED Polychromasia 3+ Anisocytosis 1+ Microcytosis 1+ Sodium Level 139 Potassium Level 4.7 Chloride Level 111 H Carbon Dioxide 22 Level Anion Gap 6 Blood Urea 35 H Nitrogen Creatinine 0.49 L Est Glomerular Filtrat Rate mL/min Glucose Level 160 Lactic Acid Level 2.1 *H Calcium Level 8.5 Phosphorus Level 2.7 Magnesium Level 2.0 Test 08/20/18 05:00 08/20/18 05:07 08/20/18 08:58 08/20/18 13:35 Blood Gas Blood arterial Specimen Source Arterial Blood 08/20/2018 4:36:3 Date Drawn 6 AM Arterial Blood pH 7.446 (Temp corrected) Arterial Blood 28.4 L pCO2 (Temp correct) Arterial Blood 112.4 H pO2 (Temp corrected) Arterial Blood 19.1 L HCO3 Arterial Blood -3.4 L Base Excess Arterial Blood 98.3 Oxygen Saturation Jarod Test ACCEPTAB Arterial Blood Right Radial Gas Puncture Site Arterial 0.7 Blood Carboxyhemo globin Arterial Blood 0.5 Methemoglobin Blood Gas A-a O2 212.2 H Differential Oxyhemoglobin 97.1 Percent Blood Gas 37.0 Temperature Blood Gas 24.0 Respiration Rate Blood Gas Actual 29 Respiration Rate Blood Gas VENT - AC Modality FiO2 50.0 Blood Gas Tidal 400.0 Volume Blood Gas Low 5.0 PEEP Setting Blood Gas 18.0 Inspiratory Pressure Blood Gas LW Notified Whom Blood Gas 08/20/2018 4:47:3 Notified Time 2 AM Bedside Glucose 149 145 151 Test 08/20/18 17:00 08/20/18 17:11 Stool Occult NEGATIVE Blood Bedside Glucose 137 Medications Medication Current Medications Miscellaneous Information (Pending [facility] Order For Wound Care) This patient tabares... PRN PRN XX WOUND CARE; Start 08/16/18 at 20:00 Acetaminophen (Tylenol Tab) 500 mg Q4H PRN PO MILD PAIN(1-3)OR ELEVATED TEMP Last administered on 08/20/18at 13:33; Admin Dose 500 MG; Start 08/16/18 at 20:00 Ascorbic Acid (Vitamin C) 500 mg BID GTB Last administered on 08/20/18at 09:49; Admin Dose 500 MG; Start 08/16/18 at 21:00 Bicalutamide (Casodex) 50 mg DAILY PO ; Start 08/17/18 at 09:00; Status Hold Metoprolol Tartrate (Lopressor) 25 mg BID PO Last administered on 08/19/18 09:46; Admin Dose 25 MG; Start 08/17/18 at 21:00 Fish Oil (Fish Oil) 1,000 mg BID PO Last administered on 08/20/18 09:49; Admin Dose 1,000 MG; Start 08/18/18 at 14:00 Norepinephrine 250 ml @ 1.875 mls/ hr TITRATE IV Last administered on 08/19/18 11:59; Admin Dose 1.875 MLS/HR; Start 08/19/18 at 11:00 Albuterol (Ventolin Hfa) 4 puff Q4H RESP THERAPY INH Last administered on 08/20/18 18:27; Admin Dose 4 PUFF; Start 08/19/18 at 17:00 Ipratropium [place] (Atrovent Hfa) 4 puff Q4 INH Last administered on 08/20/18 18:26; Admin Dose 4 PUFF; Start 08/19/18 at 17:00 Lactated Ringer's 1,000 ml @ 50 mls/hr Q20H IV Last administered on 08/20/18 18:17; Admin Dose 50 MLS/HR; Start 08/19/18 at 14:00 Piperacillin Sod/ Tazobactam Sod 100 ml @ 200 mls/hr Q8 IVPB Last administered on 08/20/18 14:25; Admin Dose 200 MLS/HR; Start 08/19/18 at 14:00 Phenylephrine HCl 40 mg/Dextrose 250 ml @ 37.5 mls/hr TITRATE IV Last administered on 08/20/18 17:13; Admin Dose 30 MLS/HR; Start 08/19/18 at 14:00 Vancomycin HCl (Vanco Iv Per Pharmacy) PER PHARMACY DOSING NOTE XX ; Start 08/19/18 at 14:30 Vancomycin/Sodium Chloride 250 ml @ 125 mls/hr Q24H IVPB Last administered on 08/20/18 15:00; Admin Dose 125 MLS/HR; Start 08/20/18 at 14:00 Insulin Aspart (Novolog Insulin Pen) NOVOLOG *MILD* ALGORI... Q4 SC Last administered on 08/20/18 13:37; Admin Dose 1 UNIT; Start 08/19/18 at 22:00 Miscellaneous Information 1 ea NOTE XX ; Start 08/19/18 at 21:30 Glucose (Glutose) 15 gm Q15M PRN PO DECREASED GLUCOSE; Start 08/19/18 at 21:30 Glucose (Glutose) 22.5 gm Q15M PRN PO DECREASED GLUCOSE; Start 08/19/18 at 21:30 Dextrose (D50w Syringe) 25 ml Q15M PRN IV DECREASED GLUCOSE; Start 08/19/18 at 21:30 Dextrose (D50w Syringe) 50 ml Q15M PRN IV DECREASED GLUCOSE; Start 08/19/18 at 21:30 Glucagon (Glucagen) 1 mg Q15M PRN IM DECREASED GLUCOSE; Start 08/19/18 at 21:30 Glucose (Glutose) 15 gm Q15M PRN BUCCAL DECREASED GLUCOSE; Start 08/19/18 at 21:30 Methenamine (Hiprex) 1 gm BID GTB ; Start 08/20/18 at 21:00 Prenat Multivit/ [employer]/Iron/Folic Ac () 1 tab DAILY GTB ; Start 08/21/18 at 09:00 Zinc Sulfate (Zinc Sulfate) 220 mg DAILY GTB ; Start 08/21/18 at 09:00 Finasteride (Proscar) 5 mg DAILY GTB Last administered on 08/20/18at 13:31; Admin Dose 5 MG; Start 08/20/18 at 10:00 VIRY CASTILLO Aug 20, 2018 18:58
[2018-08-20] MEDS: METHENAMINE 1 GM TAB GTB SCH (21:30)
[2018-08-21] VITALS (99 sets, daily range): BP systolic 73–130; BP diastolic 41–116; PULSE 75–155; RESP 18–53
[2018-08-21] MEDS: INSULIN ASPART [NOVOLOG] 3 ML PEN SC SCH ×6 (01:00→21:00)
[2018-08-21] MEDS: IPRATROPIUM (HFA) 12.9 GM INHALER INH SCH ×6 (01:39→21:30)
[2018-08-21] MEDS: ALBUTEROL HFA 8 GM INHALER INH SCH ×6 (01:39→21:30)
[2018-08-21] MEDS: PHENYLephrine 40 MG in DEXTROSE 5% 246 ML IV SCH ×2 (01:52→13:01)
--- NOTE | 2018-08-21 04:16 | PN ---
Date/Time of Note Date/Time of Note DATE: 08/21/18 TIME: 04:12 Assessment/Plan VTE Prophylaxis Risk score (from [facility])>0 risk: 14 SCD applied (from [facility]): Yes SCD contraindicated: other Pharmacological prophylaxis: other Lines/Catheters IV C[facility]ter Type (from [facility]): Central Line Central line still needed: Yes Urinary Cath still in place: Yes Reason Cath still needed: urinary retention Assessment/Plan Assessment/Plan 1. Acute hypoxemic hypercarbic respiratory failure. - ABG revealed pH 7.25, pCO2 of 65.4 and pO2 of 47. - remains intubated and is saturating 96% on FiO2 of 100%. - sp chest tube. 2. Bilateral pleural effusion, status post recent right-sided thoracentesis, predominantly lymphocytic exudate. Cytology is pending. 3. Metastatic prostate cancer with poor prognosis. Palliative care was recommended to the family; however, they requested treatment. -The patient was also seen by Dr. Jared Melendez from oncology standpoint 4. Dysphagia, status post jejunostomy tube which is being used for feeding. The patient is being followed by Dr. Mendez from GI standpoint. Echo revealed EF of 55% to 60%. The patient remains critically ill. - cardiology follows 5. The patient's pancytopenia appears to be from metastatic prostate cancer. Meanwhile, we will continue IV Zosyn for possible pneumonia. 6. For severe hypophosphatemia, - RESOLVED -Pancytopenia - Hem/Onc follows - Azotemia- BUN 35 - Nephrology consult appr Total Critical care time spent is 45 mins. Júnior Malin Result Diagram: 08/20/18 0400 08/20/18 0400 Results 24hrs Laboratory Tests Test 08/20/18 05:00 08/20/18 05:07 08/20/18 08:58 08/20/18 13:35 Blood Gas Blood arterial Specimen Source Arterial Blood 08/20/2018 4:36:3 Date Drawn 6 AM Arterial Blood pH 7.446 (Temp corrected) Arterial Blood 28.4 L pCO2 (Temp correct) Arterial Blood 112.4 H pO2 (Temp corrected) Arterial Blood 19.1 L HCO3 Arterial Blood -3.4 L Base Excess Arterial Blood 98.3 Oxygen Saturation Jarod Test ACCEPTAB Arterial Blood Right Radial Gas Puncture Site Arterial 0.7 Blood Carboxyhemo globin Arterial Blood 0.5 Methemoglobin Blood Gas A-a O2 212.2 H Differential Oxyhemoglobin 97.1 Percent Blood Gas 37.0 Temperature Blood Gas 24.0 Respiration Rate Blood Gas Actual 29 Respiration Rate Blood Gas VENT - AC Modality FiO2 50.0 Blood Gas Tidal 400.0 Volume Blood Gas Low 5.0 PEEP Setting Blood Gas 18.0 Inspiratory Pressure Blood Gas LW Notified Whom Blood Gas 08/20/2018 4:47:3 Notified Time 2 AM Bedside Glucose 149 145 151 Test 08/20/18 17:00 08/20/18 17:11 08/20/18 21:28 08/21/18 01:50 Stool Occult NEGATIVE Blood Bedside Glucose 137 130 115 Exam/Review of Systems Exam Vitals Vital Signs Date Temp Pulse Resp B/P (MAP) Pulse Ox O2 O2 Flow FiO2 Time Delivery Rate 08/21/18 82 23 98 30 01:36 08/20/18 91/47 (62) 23:45 08/20/18 Mechanical 23:00 Ventilator 08/20/18 99.0 20:00 08/19/18 4.0 08:00 Intake and Output 08/20/18 08/20/18 08/21/18 1414:59 22:59 06:59 IntakeIntake Total 905.00 ml 820 ml OutputOutput Total 300 ml 135 ml BalanceBalance 605.00 ml 685 ml Results Results 24hrs Laboratory Tests Test 08/20/18 05:00 08/20/18 05:07 08/20/18 08:58 08/20/18 13:35 Blood Gas Blood arterial Specimen Source Arterial Blood 08/20/2018 4:36:3 Date Drawn 6 AM Arterial Blood pH 7.446 (Temp corrected) Arterial Blood 28.4 L pCO2 (Temp correct) Arterial Blood 112.4 H pO2 (Temp corrected) Arterial Blood 19.1 L HCO3 Arterial Blood -3.4 L Base Excess Arterial Blood 98.3 Oxygen Saturation Jarod Test ACCEPTAB Arterial Blood Right Radial Gas Puncture Site Arterial 0.7 Blood Carboxyhemo globin Arterial Blood 0.5 Methemoglobin Blood Gas A-a O2 212.2 H Differential Oxyhemoglobin 97.1 Percent Blood Gas 37.0 Temperature Blood Gas 24.0 Respiration Rate Blood Gas Actual 29 Respiration Rate Blood Gas VENT - AC Modality FiO2 50.0 Blood Gas Tidal 400.0 Volume Blood Gas Low 5.0 PEEP Setting Blood Gas 18.0 Inspiratory Pressure Blood Gas LW Notified Whom Blood Gas 08/20/2018 4:47:3 Notified Time 2 AM Bedside Glucose 149 145 151 Test 08/20/18 17:00 08/20/18 17:11 08/20/18 21:28 08/21/18 01:50 Stool Occult NEGATIVE Blood Bedside Glucose 137 130 115 Medications Medication Current Medications Miscellaneous Information (Pending [facility] Order For Wound Care) This patient tabares... PRN PRN XX WOUND CARE; Start 08/16/18 at 20:00 Acetaminophen (Tylenol Tab) 500 mg Q4H PRN PO MILD PAIN(1-3)OR ELEVATED TEMP Last administered on 08/20/18 13:33; Admin Dose 500 MG; Start 08/16/18 at 20:00 Ascorbic Acid (Vitamin C) 500 mg BID GTB Last administered on 08/20/18 21:30; Admin Dose 500 MG; Start 08/16/18 at 21:00 Bicalutamide (Casodex) 50 mg DAILY PO ; Start 08/17/18 at 09:00; Status Hold Metoprolol Tartrate (Lopressor) 25 mg BID PO Last administered on 08/19/18 09:46; Admin Dose 25 MG; Start 08/17/18 at 21:00 Fish Oil (Fish Oil) 1,000 mg BID PO Last administered on 08/20/18 09:49; Admin Dose 1,000 MG; Start 08/18/18 at 14:00 Norepinephrine 250 ml @ 1.875 mls/ hr TITRATE IV Last administered on 08/19/18 11:59; Admin Dose 1.875 MLS/HR; Start 08/19/18 at 11:00 Albuterol (Ventolin Hfa) 4 puff Q4H RESP THERAPY INH Last administered on 08/21/18 01:39; Admin Dose 4 PUFF; Start 08/19/18 at 17:00 Ipratropium [place] (Atrovent Hfa) 4 puff Q4 INH Last administered on 08/21/18 01:39; Admin Dose 4 PUFF; Start 08/19/18 at 17:00 Lactated Ringer's 1,000 ml @ 50 mls/hr Q20H IV Last administered on 08/20/18 18:17; Admin Dose 50 MLS/HR; Start 08/19/18 at 14:00 Piperacillin Sod/ Tazobactam Sod 100 ml @ 200 mls/hr Q8 IVPB Last administered on 08/20/18at 21:34; Admin Dose 200 MLS/HR; Start 08/19/18 at 14:00 Phenylephrine HCl 40 mg/Dextrose 250 ml @ 37.5 mls/hr TITRATE IV Last administered on 08/21/18at 01:52; Admin Dose 37.5 MLS/HR; Start 08/19/18 at 14:00 Vancomycin HCl (Vanco Iv Per Pharmacy) PER PHARMACY DOSING NOTE XX ; Start 08/19/18 at 14:30 Vancomycin/Sodium Chloride 250 ml @ 125 mls/hr Q24H IVPB Last administered on 08/20/18at 15:00; Admin Dose 125 MLS/HR; Start 08/20/18 at 14:00 Insulin Aspart (Novolog Insulin Pen) NOVOLOG *MILD* ALGORI... Q4 SC Last administered on 08/20/18at 13:37; Admin Dose 1 UNIT; Start 08/19/18 at 22:00 Miscellaneous Information 1 ea NOTE XX ; Start 08/19/18 at 21:30 Glucose (Glutose) 15 gm Q15M PRN PO DECREASED GLUCOSE; Start 08/19/18 at 21:30 Glucose (Glutose) 22.5 gm Q15M PRN PO DECREASED GLUCOSE; Start 08/19/18 at 21:30 Dextrose (D50w Syringe) 25 ml Q15M PRN IV DECREASED GLUCOSE; Start 08/19/18 at 21:30 Dextrose (D50w Syringe) 50 ml Q15M PRN IV DECREASED GLUCOSE; Start 08/19/18 at 21:30 Glucagon (Glucagen) 1 mg Q15M PRN IM DECREASED GLUCOSE; Start 08/19/18 at 21:30 Glucose (Glutose) 15 gm Q15M PRN BUCCAL DECREASED GLUCOSE; Start 08/19/18 at 21:30 Methenamine (Hiprex) 1 gm BID GTB Last administered on 08/20/18at 21:30; Admin Dose 1 GM; Start 08/20/18 at 21:00 Prenat Multivit/ [place]/Iron/Folic Ac () 1 tab DAILY GTB ; Start 08/21/18 at 09:00 Zinc Sulfate (Zinc Sulfate) 220 mg DAILY GTB ; Start 08/21/18 at 09:00 Finasteride (Proscar) 5 mg DAILY GTB Last administered on 08/20/18at 13:31; Admin Dose 5 MG; Start 08/20/18 at 10:00 VIRY CASTILLO Aug 21, 2018 04:16
[2018-08-21] MEDS: PIPER-TAZO 3.375 GM IV (PMX) 100 ML IVPB SCH ×2 (05:55→13:20)
--- NOTE | 2018-08-21 07:46 | CONS ---
Assessment/Plan Assessment/Plan Hospital Course (Demo Recall) 87 yo male with prostate cancer with possible bone mets presents with failure to thrive and malnutrition. S/P PEG 08/[address] Mendez Interval hx: Pt still intubated. Tolerating tube feeds at 30cc with no residuals 1. Dysphagia -GJ tube 2. Failure to thrive. 3. Alzheimer disease. 4. 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 5. Hypertension. 6. Acute hypoxemic hypercarbic respiratory failure. -s/p chest tube placement and intubation 7. Encephalopathy 8. Anemia with downward trend -retic 2.2, Iron and percent sat wnl, TIBC low, ferritin high 9. S/P thoracentesis with lymphocytic exudate -pending cytology 10. UTI 11. Encephalopathy 12. Pancytopenia secondary to metastatic prostate cancer PLAN: Supportive ICU care FOB pending Ok to increase TF to 40cc/hr, monitor residuals q 6 hours, check phos in am Monitor electrolytes for refeeding syndrome Continue with erythromycin Abdominal binder Continue with IV hydration until pt is at goal Pt examined and plan of care discussed with Dr. Mendez Consultation Date/Type/Reason Admit Date/Time Aug 16, 2018 at 14:10 Initial Consult Date Requesting Provider: SANIA WHITTINGTON MD Date/Time of Note DATE: 08/21/18 TIME: 07:38 Exam/Review of Systems Exam Vitals Vital Signs Date Temp Pulse Resp B/P (MAP) Pulse Ox O2 O2 Flow FiO2 Time Delivery Rate 08/21/18 83 20 98/53 (68) 99 06:15 08/21/18 30 06:02 08/21/18 Mechanical 06:00 Ventilator 08/21/18 98.2 04:00 08/19/18 4.0 08:00 Intake and Output 08/20/18 08/20/18 08/21/18 1515:00 23:00 07:00 IntakeIntake Total 1021.25 ml 1010 ml 850 ml OutputOutput Total 295 ml 395 ml 450 ml BalanceBalance 726.25 ml 615 ml 400 ml Head: normocephalic Eyes: PERRL Respiratory: diminished breath sounds Cardiovascular: regular rate and rhythm Gastrointestinal: soft, non-tender Neurological: other (responsive to tactile stimuli) Results Result Diagram: 08/21/18 0500 08/21/18 0500 Results 24hrs Laboratory Tests Test 08/20/18 08:58 08/20/18 13:35 08/20/18 17:00 08/20/18 17:11 Bedside Glucose 145 151 137 Stool Occult NEGATIVE Blood Test 08/20/18 21:28 08/21/18 01:50 08/21/18 05:00 08/21/18 05:12 Bedside Glucose 130 115 White Blood 4.4 #L Count Red Blood Count 3.78 L Hemoglobin 10.5 L Hematocrit 31.6 L Mean Corpuscular 83.6 Volume Mean Corpuscular 27.8 L Hemoglobin Mean Corpuscular 33.2 Hemoglobin Glenny nt Red Cell 17.6 H Distribution Width Platelet Count 72 L Mean Platelet Volume Immature 6.400 H Granulocytes % Neutrophils % Lymphocytes % Monocytes % Eosinophils % Basophils % Nucleated Red 8.2 H Blood Cells % Immature 0.280 H Granulocytes # Neutrophils # Lymphocytes # Monocytes # Eosinophils # Basophils # Nucleated Red Blood Cells # Sodium Level 138 Potassium Level 3.6 Chloride Level 109 Carbon Dioxide 22 Level Anion Gap 7 Blood Urea 38 H Nitrogen Creatinine 0.54 L Est Glomerular Filtrat Rate mL/min Glucose Level 114 # Calcium Level 8.2 L Total Bilirubin 0.6 Direct Bilirubin 0.00 Indirect 0.6 Bilirubin Aspartate Amino 295 #H Transf (AST/SGOT ) Alanine 21 Aminotransferase (ALT/SGPT) Alkaline 319 H Phosphatase Total Protein 4.9 #L Albumin 2.2 L Globulin 2.70 Albumin/Globulin 0.81 Ratio Lab Scanned BLOOD TRANSFUSI Report ON Test 08/21/18 05:56 08/21/18 07:00 Bedside Glucose 115 Blood Gas Blood arterial Specimen Source Arterial Blood 08/21/2018 7:12: Date Drawn 33 AM Arterial Blood 7.463 H pH (Temp corrected) Arterial Blood 29.3 L pCO2 (Temp correct) Arterial Blood 104.3 H pO2 (Temp corrected) Arterial Blood 20.5 L HCO3 Arterial Blood -2.3 Base Excess Arterial Blood 97.6 Oxygen Saturatio n Jarod Test ACCEPTAB Arterial Blood Right Radial Gas Puncture Site Arterial 0.1 Blood Carboxyhem oglobin Arterial Blood 0.4 Methemoglobin Blood Gas A-a O2 75.2 H Differential Oxyhemoglobin 97.1 Percent Blood Gas 37.0 Temperature Blood Gas 16.0 Respiration Rate Blood Gas Actual 20 Respiration Rate Blood Gas VENT - AC Modality FiO2 30.0 Blood Gas Tidal 450.0 Volume Blood Gas Low 5.0 PEEP Setting Blood Gas TM Notified Whom Blood Gas 08/21/2018 7:23: Notified Time 24 AM Medications Medication Current Medications Miscellaneous Information ([facility] This patient tabares... PRN PRN XX WOUND CARE; Start 08/16/18 at 20:00 Acetaminophen (Tylenol Tab) 500 mg Q4H PRN PO MILD PAIN(1-3)OR ELEVATED TEMP Last administered on 08/20/18 13:33; Admin Dose 500 MG; Start 08/16/18 at 20:00 Ascorbic Acid (Vitamin C) 500 mg BID GTB Last administered on 08/20/18 21:30; Admin Dose 500 MG; Start 08/16/18 at 21:00 Bicalutamide (Casodex) 50 mg DAILY PO ; Start 08/17/18 at 09:00; Status Hold Metoprolol Tartrate (Lopressor) 25 mg BID PO Last administered on 08/19/18 09:46; Admin Dose 25 MG; Start 08/17/18 at 21:00 Fish Oil (Fish Oil) 1,000 mg BID PO Last administered on 08/20/18 09:49; Admin Dose 1,000 MG; Start 08/18/18 at 14:00 Norepinephrine 250 ml @ 1.875 mls/ hr TITRATE IV Last administered on 08/19/18 t 11:59; Admin Dose 1.875 MLS/HR; Start 08/19/18 at 11:00 Albuterol (Ventolin Hfa) 4 puff Q4H RESP THERAPY INH Last administered on 08/21/18 06:00; Admin Dose 4 PUFF; Start 08/19/18 at 17:00 Ipratropium [place] (Atrovent Hfa) 4 puff Q4 INH Last administered on 08/21/18 06:00; Admin Dose 4 PUFF; Start 08/19/18 at 17:00 Lactated Ringer's 1,000 ml @ 50 mls/hr Q20H IV Last administered on 08/20/18 18:17; Admin Dose 50 MLS/HR; Start 08/19/18 at 14:00 Piperacillin Sod/ Tazobactam Sod 100 ml @ 200 mls/hr Q8 IVPB Last administered on 4/30/19at 05:55; Admin Dose 200 MLS/HR; Start 08/19/18 at 14:00 Phenylephrine HCl 40 mg/Dextrose 250 ml @ 37.5 mls/hr TITRATE IV Last administered on 08/21/18at 01:52; Admin Dose 37.5 MLS/HR; Start 08/19/18 at 14:00 Vancomycin HCl (Vanco Iv Per Pharmacy) PER PHARMACY DOSING NOTE XX ; Start 08/19/18 at 14:30 Vancomycin/Sodium Chloride 250 ml @ 125 mls/hr Q24H IVPB Last administered on 08/20/18at 15:00; Admin Dose 125 MLS/HR; Start 08/20/18 at 14:00 Insulin Aspart (Novolog Insulin Pen) NOVOLOG *MILD* ALGORI... Q4 SC Last administered on 08/20/18at 13:37; Admin Dose 1 UNIT; Start 08/19/18 at 22:00 Miscellaneous Information 1 ea NOTE XX ; Start 08/19/18 at 21:30 Glucose (Glutose) 15 gm Q15M PRN PO DECREASED GLUCOSE; Start 08/19/18 at 21:30 Glucose (Glutose) 22.5 gm Q15M PRN PO DECREASED GLUCOSE; Start 08/19/18 at 21:30 Dextrose (D50w Syringe) 25 ml Q15M PRN IV DECREASED GLUCOSE; Start 08/19/18 at 21:30 Dextrose (D50w Syringe) 50 ml Q15M PRN IV DECREASED GLUCOSE; Start 08/19/18 at 21:30 Glucagon (Glucagen) 1 mg Q15M PRN IM DECREASED GLUCOSE; Start 08/19/18 at 21:30 Glucose (Glutose) 15 gm Q15M PRN BUCCAL DECREASED GLUCOSE; Start 08/19/18 at 21:30 Methenamine (Hiprex) 1 gm BID GTB Last administered on 08/20/18at 21:30; Admin Dose 1 GM; Start 08/20/18 at 21:00 Prenat Multivit/ [place]/Iron/Folic Ac () 1 tab DAILY GTB ; Start 08/21/18 at 09:00 Zinc Sulfate (Zinc Sulfate) 220 mg DAILY GTB ; Start 08/21/18 at 09:00 Finasteride (Proscar) 5 mg DAILY GTB Last administered on 08/20/18at 13:31; Admin Dose 5 MG; Start 08/20/18 at 10:00 ADRIEL DELCID Aug 21, 2018 07:46
[2018-08-21] MEDS: FINASTERIDE 5 MG TAB GTB SCH (08:09)
[2018-08-21] MEDS: METHENAMINE 1 GM TAB GTB SCH ×2 (08:09→21:09)
[2018-08-21] MEDS: ZINC SULFATE 220 MG CAP GTB SCH (08:09)
[2018-08-21] MEDS: ASCORBIC ACID 500 MG TAB GTB SCH ×2 (08:09→21:09)
[2018-08-21] MEDS: FISH OIL 1,000 MG CAP PO SCH ×2 (08:09→20:58)
[2018-08-21] MEDS: PRENATAL VITAMIN GTB SCH (08:10)
[2018-08-21] MEDS: METOPROLOL 25 MG TAB PO SCH ×2 (08:10→21:00)
--- NOTE | 2018-08-21 11:35 | CONS ---
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, in ICU, intubated will try to call son again given current situation and age and frailty, hospice recommended #VDRF management per ICU #pleural effusion, s/p right-sided thoracentesis cytology pending #thrombocytopenia -worsening but no evidence of bleeding -fibrinogen ok making DIC unlikely but will recheck DIC panel -check LDH Thank you for the opportunity to participate in this patients care A total of 40 minutes of face to face time was spent speaking with the patient, of which greater than 50% was spent in counseling and coordination of care and the detailed question and answer session. Consultation Date/Type/Reason Admit Date/Time Aug 16, 2018 at 14:10 Initial Consult Date 08/17/18 Type of Consult hematology/oncology Reason for Consultation prostate cancer Requesting Provider: SANIA WHITTINGTON MD Date/Time of Note DATE: 08/21/18 TIME: 11:32 24 HR Interval Summary Free Text/Dictation pt remains intubated on pressor support Subjective hx not possible: pt critical status Exam/Review of Systems Exam Vitals Vital Signs Date Temp Pulse Resp B/P (MAP) Pulse Ox O2 O2 Flow FiO2 Time Delivery Rate 08/21/18 121 24 104/73 95 CPAP 11:15 (83) 08/21/18 30 08:00 08/21/18 97.0 07:00 08/19/18 4.0 08:00 Intake and Output 08/20/18 08/20/18 08/21/18 1515:00 23:00 07:00 IntakeIntake Total 1021.25 ml 1010 ml 952.5 ml OutputOutput Total 295 ml 395 ml 490 ml BalanceBalance 726.25 ml 615 ml 462.5 ml Constitutional: non-verbal ENMT: intubated Neck: supple Respiratory: clear to auscultation Cardiovascular: regular rate and rhythm Gastrointestinal: soft Musculoskeletal: nl extremities to inspection Results Result Diagram: 08/21/18 0500 08/21/18 0500 Results 24hrs Laboratory Tests Test 08/20/18 13:35 08/20/18 17:00 08/20/18 17:11 08/20/18 21:28 Bedside Glucose 151 137 130 Stool Occult NEGATIVE Blood Test 08/21/18 01:50 08/21/18 05:00 08/21/18 05:12 08/21/18 05:56 Bedside Glucose 115 115 White Blood 4.4 #L Count Red Blood Count 3.78 L Hemoglobin 10.5 L Hematocrit 31.6 L Mean Corpuscular 83.6 Volume Mean Corpuscular 27.8 L Hemoglobin Mean Corpuscular 33.2 Hemoglobin Glenny nt Red Cell 17.6 H Distribution Width Platelet Count 72 L Mean Platelet Volume Immature 6.400 H Granulocytes % Neutrophils % Segmented 19 L Neutrophils % (Manual) Band Neutrophils 40 H % (Manual) Lymphocytes % Lymphocytes % 27 (Manual) Reactive 1 H Lymphocytes % (Manual) Monocytes % Monocytes % 7 (Manual) Eosinophils % Basophils % Metamyelocytes % 1 H (manual) Myelocytes % 4 H (Manual) Promyelocytes % 1 H (Manual) Nucleated Red 18 H Blood Cells % Immature 0.280 H Granulocytes # Neutrophils # Neutrophils # 0.9 L (Manual) Band Neutrophils 1.7 H # Lymphocytes 1.1 (Manual) Lymphocytes # Reactive 0.0 Lymphocytes # Monocytes # Monocytes # 0.3 (Manual) Eosinophils # Basophils # Metamyelocytes # 0.0 Myelocytes # 0.1 H Promyelocytes # 0.0 Nucleated Red Blood Cells # Toxic 2+ Granulation Platelet DECREASED Estimate Polychromasia 3+ Poikilocytosis 3+ Anisocytosis 1+ Microcytosis 1+ Ovalocytes 1+ Sodium Level 138 Potassium Level 3.6 Chloride Level 109 Carbon Dioxide 22 Level Anion Gap 7 Blood Urea 38 H Nitrogen Creatinine 0.54 L Est Glomerular Filtrat Rate mL/min Glucose Level 114 # Calcium Level 8.2 L Total Bilirubin 0.6 Direct Bilirubin 0.00 Indirect 0.6 Bilirubin Aspartate Amino 295 #H Transf (AST/SGOT ) Alanine 21 Aminotransferase (ALT/SGPT) Alkaline 319 H Phosphatase Total Protein 4.9 #L Albumin 2.2 L Globulin 2.70 Albumin/Globulin 0.81 Ratio Lab Scanned BLOOD TRANSFUSI Report ON Test 08/21/18 07:00 08/21/18 08:32 Blood Gas Blood arterial Specimen Source Arterial Blood 08/21/2018 7:12: Date Drawn 33 AM Arterial Blood 7.463 H pH (Temp corrected) Arterial Blood 29.3 L pCO2 (Temp correct) Arterial Blood 104.3 H pO2 (Temp corrected) Arterial Blood 20.5 L HCO3 Arterial Blood -2.3 Base Excess Arterial Blood 97.6 Oxygen Saturatio n Jarod Test ACCEPTAB Arterial Blood Right Radial Gas Puncture Site Arterial 0.1 Blood Carboxyhem oglobin Arterial Blood 0.4 Methemoglobin Blood Gas A-a O2 75.2 H Differential Oxyhemoglobin 97.1 Percent Blood Gas 37.0 Temperature Blood Gas 16.0 Respiration Rate Blood Gas Actual 20 Respiration Rate Blood Gas VENT - AC Modality FiO2 30.0 Blood Gas Tidal 450.0 Volume Blood Gas Low 5.0 PEEP Setting Blood Gas TM Notified Whom Blood Gas 08/21/2018 7:23: Notified Time 24 AM Bedside Glucose 95 Medications Medication Current Medications Miscellaneous Information (Pending [facility] Order For Wound Care) This patient tabares... PRN PRN XX WOUND CARE; Start 08/16/18 at 20:00 Acetaminophen (Tylenol Tab) 500 mg Q4H PRN PO MILD PAIN(1-3)OR ELEVATED TEMP Last administered on 08/20/18at 13:33; Admin Dose 500 MG; Start 08/16/18 at 20:00 Ascorbic Acid (Vitamin C) 500 mg BID GTB Last administered on 08/21/18at 08:09; Admin Dose 500 MG; Start 08/16/18 at 21:00 Bicalutamide (Casodex) 50 mg DAILY PO ; Start 08/17/18 at 09:00; Status Hold Metoprolol Tartrate (Lopressor) 25 mg BID PO Last administered on 08/19/18at 09: 46; Admin Dose 25 MG; Start 08/17/18 at 21:00 Fish Oil (Fish Oil) 1,000 mg BID PO Last administered on 08/21/18at 08:09; Admin Dose 1,000 MG; Start 08/18/18 at 14:00 Norepinephrine 250 ml @ 1.875 mls/ hr TITRATE IV Last administered on 08/19/18at 11:59; Admin Dose 1.875 MLS/HR; Start 08/19/18 at 11:00 Albuterol (Ventolin Hfa) 4 puff Q4H RESP THERAPY INH Last administered on 08/21/18 09:02; Admin Dose 4 PUFF; Start 08/19/18 at 17:00 Ipratropium [place] (Atrovent Hfa) 4 puff Q4 INH Last administered on 08/21/18at 09:02; Admin Dose 4 PUFF; Start 08/19/18 at 17:00 Lactated Ringer's 1,000 ml @ 50 mls/hr Q20H IV Last administered on 08/20/18at 18:17; Admin Dose 50 MLS/HR; Start 08/19/18 at 14:00 Piperacillin Sod/ Tazobactam Sod 100 ml @ 200 mls/hr Q8 IVPB Last administered on 08/21/18at 05:55; Admin Dose 200 MLS/HR; Start 08/19/18 at 14:00 Phenylephrine HCl 40 mg/Dextrose 250 ml @ 37.5 mls/hr TITRATE IV Last administered on 08/21/18at 01:52; Admin Dose 37.5 MLS/HR; Start 08/19/18 at 14:00 Vancomycin HCl (Vanco Iv Per Pharmacy) PER PHARMACY DOSING NOTE XX ; Start 08/19/18 at 14:30 Vancomycin/Sodium Chloride 250 ml @ 125 mls/hr Q24H IVPB Last administered on 08/20/18at 15:00; Admin Dose 125 MLS/HR; Start 08/20/18 at 14:00 Insulin Aspart (Novolog Insulin Pen) NOVOLOG *MILD* ALGORI... Q4 SC Last administered on 08/20/18at 13:37; Admin Dose 1 UNIT; Start 08/19/18 at 22:00 Miscellaneous Information 1 ea NOTE XX ; Start 08/19/18 at 21:30 Glucose (Glutose) 15 gm Q15M PRN PO DECREASED GLUCOSE; Start 08/19/18 at 21:30 Glucose (Glutose) 22.5 gm Q15M PRN PO DECREASED GLUCOSE; Start 08/19/18 at 21:30 Dextrose (D50w Syringe) 25 ml Q15M PRN IV DECREASED GLUCOSE; Start 08/19/18 at 21:30 Dextrose (D50w Syringe) 50 ml Q15M PRN IV DECREASED GLUCOSE; Start 08/19/18 at 21:30 Glucagon (Glucagen) 1 mg Q15M PRN IM DECREASED GLUCOSE; Start 08/19/18 at 21:30 Glucose (Glutose) 15 gm Q15M PRN BUCCAL DECREASED GLUCOSE; Start 08/19/18 at 21:30 Methenamine (Hiprex) 1 gm BID GTB Last administered on 08/21/18at 08:09; Admin Dose 1 GM; Start 08/20/18 at 21:00 Prenat Multivit/ [place]/Iron/Folic Ac () 1 tab DAILY GTB Last administered on 08/21/18at 08:10; Admin Dose 1 TAB; Start 08/21/18 at 09:00 Zinc Sulfate (Zinc Sulfate) 220 mg DAILY GTB Last administered on 08/21/18at 08:09; Admin Dose 220 MG; Start 08/21/18 at 09:00 Finasteride (Proscar) 5 mg DAILY GTB Last administered on 08/21/18at 08:09; Admin Dose 5 MG; Start 08/20/18 at 10:00 Miscellaneous Information (*Rx Drug Level Order Reminder*) VANCO TROUGH ON @ 400 1400 ONCE XX ; Start 08/22/18 at 14:00; Stop 08/22/18 at 14:01 DOMINIK OG M.D. Aug 21, 2018 11:35
[2018-08-21] MEDS ORDERED: morphine 2 MG INJ IV PRN (12:00)
--- NOTE | 2018-08-21 12:00 | CONS ---
Consult Date/Type/Reason Admit Date/Time Aug 16, 2018 at 14:10 Initial Consult Date 08/17/18 Type of Consult Pulmonary Requesting Provider: SANIA WHITTINGTON MD Date/Time of Note DATE: 08/21/18 TIME: 11:58 Subjective Patient continues mechanical ventilation. Remains somnolent. Still requiring vasopressor support. Objective Vital Signs Date Temp Pulse Resp B/P (MAP) Pulse Ox O2 O2 Flow FiO2 Time Delivery Rate 08/21/18 30 11:50 08/21/18 120 27 129/56 97 CPAP 11:45 (80) 08/21/18 97.0 07:00 08/19/18 4.0 08:00 Intake and Output 08/20/18 08/20/18 08/21/18 1414:59 22:59 06:59 IntakeIntake Total 905.00 ml 1180 ml 880 ml OutputOutput Total 300 ml 375 ml 490 ml BalanceBalance 605.00 ml 805 ml 390 ml Exam GENERAL: Frail elderly gentleman with mechanical ventilation. VITAL SIGNS: per chart NECK: Supple. No JVD or lymphadenopathy. CARDIAC EXAM: S1, S2. No added sounds or murmurs. CHEST: Diminished air entry bilaterally chest tube right lung. ABDOMEN: Soft, nontender. No guarding or rebound. EXTREMITIES: No cyanosis, clubbing or edema. NEUROLOGIC: Generalized weakness. Vent Setting Ventilator Support Mode: AC Fraction of Inspired Oxygen pe: 30 Positive End Expiratory Pressu: 5.0 Results/Medications Result Diagram: 08/21/18 0500 08/21/18 0500 Results 24 hrs Laboratory Tests Test 08/20/18 13:35 08/20/18 17:00 08/20/18 17:11 08/20/18 21:28 Bedside Glucose 151 137 130 Stool Occult NEGATIVE Blood Test 08/21/18 01:50 08/21/18 05:00 08/21/18 05:12 08/21/18 05:56 Bedside Glucose 115 115 White Blood 4.4 #L Count Red Blood Count 3.78 L Hemoglobin 10.5 L Hematocrit 31.6 L Mean Corpuscular 83.6 Volume Mean Corpuscular 27.8 L Hemoglobin Mean Corpuscular 33.2 Hemoglobin Glenny nt Red Cell 17.6 H Distribution Width Platelet Count 72 L Mean Platelet Volume Immature 6.400 H Granulocytes % Neutrophils % Segmented 19 L Neutrophils % (Manual) Band Neutrophils 40 H % (Manual) Lymphocytes % Lymphocytes % 27 (Manual) Reactive 1 H Lymphocytes % (Manual) Monocytes % Monocytes % 7 (Manual) Eosinophils % Basophils % Metamyelocytes % 1 H (manual) Myelocytes % 4 H (Manual) Promyelocytes % 1 H (Manual) Nucleated Red 18 H Blood Cells % Immature 0.280 H Granulocytes # Neutrophils # Neutrophils # 0.9 L (Manual) Band Neutrophils 1.7 H # Lymphocytes 1.1 (Manual) Lymphocytes # Reactive 0.0 Lymphocytes # Monocytes # Monocytes # 0.3 (Manual) Eosinophils # Basophils # Metamyelocytes # 0.0 Myelocytes # 0.1 H Promyelocytes # 0.0 Nucleated Red Blood Cells # Toxic 2+ Granulation Platelet DECREASED Estimate Polychromasia 3+ Poikilocytosis 3+ Anisocytosis 1+ Microcytosis 1+ Ovalocytes 1+ Sodium Level 138 Potassium Level 3.6 Chloride Level 109 Carbon Dioxide 22 Level Anion Gap 7 Blood Urea 38 H Nitrogen Creatinine 0.54 L Est Glomerular Filtrat Rate mL/min Glucose Level 114 # Calcium Level 8.2 L Total Bilirubin 0.6 Direct Bilirubin 0.00 Indirect 0.6 Bilirubin Aspartate Amino 295 #H Transf (AST/SGOT ) Alanine 21 Aminotransferase (ALT/SGPT) Alkaline 319 H Phosphatase Total Protein 4.9 #L Albumin 2.2 L Globulin 2.70 Albumin/Globulin 0.81 Ratio Lab Scanned BLOOD TRANSFUSI Report ON Test 08/21/18 07:00 08/21/18 08:32 08/21/18 11:30 Blood Gas Blood arterial Blood arterial Specimen Source Arterial Blood 08/21/2018 7:12: 08/21/2018 11:35 Date Drawn 33 AM :58 AM Arterial Blood 7.463 H 7.298 *L pH (Temp corrected) Arterial Blood 29.3 L 50.5 H pCO2 (Temp correct) Arterial Blood 104.3 H 83.3 pO2 (Temp corrected) Arterial Blood 20.5 L 24.2 HCO3 Arterial Blood -2.3 -2.7 Base Excess Arterial Blood 97.6 94.7 L Oxygen Saturatio n Jarod Test ACCEPTAB ACCEPTAB Arterial Blood Right Radial Right Radial Gas Puncture Site Arterial 0.1 0.6 Blood Carboxyhem oglobin Arterial Blood 0.4 0.4 Methemoglobin Blood Gas A-a O2 75.2 H 71.3 H Differential Oxyhemoglobin 97.1 93.8 Percent Blood Gas 37.0 37.0 Temperature Blood Gas 16.0 Respiration Rate Blood Gas Actual 20 24 Respiration Rate Blood Gas VENT - AC VENT - CPAP Modality FiO2 30.0 30.0 Blood Gas Tidal 450.0 Volume Blood Gas Low 5.0 5.0 PEEP Setting Blood Gas TM TM Notified Whom Blood Gas 08/21/2018 7:23: 08/21/2018 11:54 Notified Time 24 AM :06 AM Bedside Glucose 95 Blood Gas 10 Pressure Support Blood Gas EDVIN CANALES Critical Value Read Back Medications Current Medications Miscellaneous Information (Pending [facility] Order For Wound Care) This patient tabares... PRN PRN XX WOUND CARE; Start 08/16/18 at 20:00 Acetaminophen (Tylenol Tab) 500 mg Q4H PRN PO MILD PAIN(1-3)OR ELEVATED TEMP Last administered on 08/20/18 13:33; Admin Dose 500 MG; Start 08/16/18 at 20:00 Ascorbic Acid (Vitamin C) 500 mg BID GTB Last administered on 08/21/18 08:09; Admin Dose 500 MG; Start 08/16/18 at 21:00 Bicalutamide (Casodex) 50 mg DAILY PO ; Start 08/17/18 at 09:00; Status Hold Metoprolol Tartrate (Lopressor) 25 mg BID PO Last administered on 08/19/18 09:46; Admin Dose 25 MG; Start 08/17/18 at 21:00 Fish Oil (Fish Oil) 1,000 mg BID PO Last administered on 08/21/18 08:09; Admin Dose 1,000 MG; Start 08/18/18 at 14:00 Norepinephrine 250 ml @ 1.875 mls/ hr TITRATE IV Last administered on 08/19 11:59; Admin Dose 1.875 MLS/HR; Start 08/19/18 at 11:00 Albuterol (Ventolin Hfa) 4 puff Q4H RESP THERAPY INH Last administered on 08/21/18 09:02; Admin Dose 4 PUFF; Start 08/19/18 at 17:00 Ipratropium [place] (Atrovent Hfa) 4 puff Q4 INH Last administered on 08/21/18 09:02; Admin Dose 4 PUFF; Start 08/19/18 at 17:00 Lactated Ringer's 1,000 ml @ 50 mls/hr Q20H IV Last administered on 08/20/18at 18:17; Admin Dose 50 MLS/HR; Start 08/19/18 at 14:00 Piperacillin Sod/ Tazobactam Sod 100 ml @ 200 mls/hr Q8 IVPB Last administered on 08/21/18at 05:55; Admin Dose 200 MLS/HR; Start 08/19/18 at 14:00 Phenylephrine HCl 40 mg/Dextrose 250 ml @ 37.5 mls/hr TITRATE IV Last administered on 08/21/18at 01:52; Admin Dose 37.5 MLS/HR; Start 08/19/18 at 14:00 Vancomycin HCl (Vanco Iv Per Pharmacy) PER PHARMACY DOSING NOTE XX ; Start 08/19/18 at 14:30 Vancomycin/Sodium Chloride 250 ml @ 125 mls/hr Q24H IVPB Last administered on 08/20/18at 15:00; Admin Dose 125 MLS/HR; Start 08/20/18 at 14:00 Insulin Aspart (Novolog Insulin Pen) NOVOLOG *MILD* ALGORI... Q4 SC Last administered on 08/20/18at 13:37; Admin Dose 1 UNIT; Start 08/19/18 at 22:00 Miscellaneous Information 1 ea NOTE XX ; Start 08/19/18 at 21:30 Glucose (Glutose) 15 gm Q15M PRN PO DECREASED GLUCOSE; Start 08/19/18 at 21:30 Glucose (Glutose) 22.5 gm Q15M PRN PO DECREASED GLUCOSE; Start 08/19/18 at 21:30 Dextrose (D50w Syringe) 25 ml Q15M PRN IV DECREASED GLUCOSE; Start 08/19/18 at 21:30 Dextrose (D50w Syringe) 50 ml Q15M PRN IV DECREASED GLUCOSE; Start 08/19/18 at 21:30 Glucagon (Glucagen) 1 mg Q15M PRN IM DECREASED GLUCOSE; Start 08/19/18 at 21:30 Glucose (Glutose) 15 gm Q15M PRN BUCCAL DECREASED GLUCOSE; Start 08/19/18 at 21:30 Methenamine (Hiprex) 1 gm BID GTB Last administered on 08/21/18at 08:09; Admin Dose 1 GM; Start 08/20/18 at 21:00 Prenat Multivit/ [place]/Iron/Folic Ac () 1 tab DAILY GTB Last ad ministered on 08/21/18at 08:10; Admin Dose 1 TAB; Start 08/21/18 at 09:00 Zinc Sulfate (Zinc Sulfate) 220 mg DAILY GTB Last administered on 08/21/18at 08:09; Admin Dose 220 MG; Start 08/21/18 at 09:00 Finasteride (Proscar) 5 mg DAILY GTB Last administered on 08/21/18at 08:09; Admin Dose 5 MG; Start 08/20/18 at 10:00 Miscellaneous Information (*Rx Drug Level Order Reminder*) VANCO TROUGH ON @ 400 1400 ONCE XX ; Start 08/22/18 at 14:00; Stop 08/22/18 at 14:01 Assessment/Plan Hospital Course (Demo Recall) IMP: 1. Acute Hypercapnic/Hypoxemic Respiratory Failure 2/2 L mainstem mucus plugging with complete left lung atelectasis s/p intubation. Resulting positive pressure ventilation thereafter likely led to a right-sided pneumothorax with tension physiology. 2. Tension PTX, status post right chest tube. 3. Complete Left Lung ATX--2/2 mucus plugging, now re-expanded. Post bronchoscopy. 4. Intermittent PSVT 5. Right lung pneumonia--likely aspiration 6. Possible UTI 7. 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 Metastatic prostate Cancer 9. Severe Cachexia/deconditioning 10. Pancytopenia 11. Advanced dementia. RECS: 1. Vent support--CPAP this morning with significant tachycardia. 2. Continue chest tube suction. 3. Continue vasopressor support titrate to keep map greater than 65 4. IVF resuscitation with LR, check random cortisol level possible adrenal insufficiency. 5. Broad-spectrum abx 6. [place]-culture 7. Monitor H&H posttransfusion 45 minutes min cc time Case d/w family in detail, family aware of his comorbidities and extremely poor prognosis., requesting full code Consider palliative care consult [facility]UIZ RAMOS [facility] Aug 21, 2018 12:00
[2018-08-21] MEDS: LACTATED RINGER'S 1,000 ML IV SCH (12:57)
[2018-08-21] MEDS: BALSAM PERU/CASTOR OIL 60 GM TUBE TOP SCH ×2 (13:00→21:12)
--- NOTE | 2018-08-21 13:08 | CONS ---
Consult Date/Type/Reason Admit Date/Time Aug 16, 2018 at 14:10 Initial Consult Date 08/17/18 Type of Consultation: Pulm/CCM Requesting Provider: SANIA WHITTINGTON MD Date/Time of Note DATE: 08/21/18 TIME: 13:05 Subjective NO acute events - pt still with intermittent tachy arrhythmia- likely with pulmonary drive - not sustained - will monitor fore now - OI spoke with family on the phone - aware of guarded prognosis. Per nurse : NO F/C/N/V/D/C - on bria gtt still Objective Vitals Vital Signs Date Temp Pulse Resp B/P (MAP) Pulse Ox O2 O2 Flow FiO2 Time Delivery Rate 08/21/18 118 12:00 08/21/18 30 11:50 08/21/18 27 129/56 97 CPAP 11:45 (80) 08/21/18 97.0 07:00 08/19/18 4.0 08:00 Intake and Output 08/20/18 08/20/18 08/21/18 1515:00 23:00 07:00 IntakeIntake Total 1021.25 ml 1010 ml 952.5 ml OutputOutput Total 295 ml 395 ml 490 ml BalanceBalance 726.25 ml 615 ml 462.5 ml Exam General: WN/WD/NAD, AOx 0 HEENT: Unicetric/atraumatic/EOMI (does not follow commands) NECK: JVD elevated, no thyromegaly - intubated Lymph: no lymphadenopathy HEART: regular with no S3, II/ systolic murmur at apex LUNGS: Coarse sounds ABD: soft, NT, ND, +BS : Intact Neuro: non focal SKIN: chronic changes EXT: trace edema Results/Medications Result Diagram: 08/21/18 1212 08/21/18 0500 Results 24 hrs Laboratory Tests Test 08/20/18 13:35 08/20/18 17:00 08/20/18 17:11 08/20/18 21:28 Bedside Glucose 151 137 130 Stool Occult NEGATIVE Blood Test 08/21/18 01:50 08/21/18 05:00 08/21/18 05:12 08/21/18 05:56 Bedside Glucose 115 115 White Blood 4.4 #L Count Red Blood Count 3.78 L Hemoglobin 10.5 L Hematocrit 31.6 L Mean Corpuscular 83.6 Volume Mean Corpuscular 27.8 L Hemoglobin Mean Corpuscular 33.2 Hemoglobin Glenny nt Red Cell 17.6 H Distribution Width Platelet Count 72 L Mean Platelet Volume Immature 6.400 H Granulocytes % Neutrophils % Segmented 19 L Neutrophils % (Manual) Band Neutrophils 40 H % (Manual) Lymphocytes % Lymphocytes % 27 (Manual) Reactive 1 H Lymphocytes % (Manual) Monocytes % Monocytes % 7 (Manual) Eosinophils % Basophils % Metamyelocytes % 1 H (manual) Myelocytes % 4 H (Manual) Promyelocytes % 1 H (Manual) Nucleated Red 18 H Blood Cells % Immature 0.280 H Granulocytes # Neutrophils # Neutrophils # 0.9 L (Manual) Band Neutrophils 1.7 H # Lymphocytes 1.1 (Manual) Lymphocytes # Reactive 0.0 Lymphocytes # Monocytes # Monocytes # 0.3 (Manual) Eosinophils # Basophils # Metamyelocytes # 0.0 Myelocytes # 0.1 H Promyelocytes # 0.0 Nucleated Red Blood Cells # Toxic 2+ Granulation Platelet DECREASED Estimate Polychromasia 3+ Poikilocytosis 3+ Anisocytosis 1+ Microcytosis 1+ Ovalocytes 1+ Sodium Level 138 Potassium Level 3.6 Chloride Level 109 Carbon Dioxide 22 Level Anion Gap 7 Blood Urea 38 H Nitrogen Creatinine 0.54 L Est Glomerular Filtrat Rate mL/min Glucose Level 114 # Calcium Level 8.2 L Total Bilirubin 0.6 Direct Bilirubin 0.00 Indirect 0.6 Bilirubin Aspartate Amino 295 #H Transf (AST/SGOT ) Alanine 21 Aminotransferase (ALT/SGPT) Alkaline 319 H Phosphatase Total Protein 4.9 #L Albumin 2.2 L Globulin 2.70 Albumin/Globulin 0.81 Ratio Lab Scanned BLOOD TRANSFUSI Report ON Test 08/21/18 07:00 08/21/18 08:32 08/21/18 11:30 08/21/18 12:12 Blood Gas Blood arterial Blood arterial Specimen Source Arterial Blood 08/21/2018 7:12: 08/21/2018 11:35 Date Drawn 33 AM :58 AM Arterial Blood 7.463 H 7.298 *L pH (Temp corrected) Arterial Blood 29.3 L 50.5 H pCO2 (Temp correct) Arterial Blood 104.3 H 83.3 pO2 (Temp corrected) Arterial Blood 20.5 L 24.2 HCO3 Arterial Blood -2.3 -2.7 Base Excess Arterial Blood 97.6 94.7 L Oxygen Saturatio n Jarod Test ACCEPTAB ACCEPTAB Arterial Blood Right Radial Right Radial Gas Puncture Site Arterial 0.1 0.6 Blood Carboxyhem oglobin Arterial Blood 0.4 0.4 Methemoglobin Blood Gas A-a O2 75.2 H 71.3 H Differential Oxyhemoglobin 97.1 93.8 Percent Blood Gas 37.0 37.0 Temperature Blood Gas 16.0 Respiration Rate Blood Gas Actual 20 24 Respiration Rate Blood Gas VENT - AC VENT - CPAP Modality FiO2 30.0 30.0 Blood Gas Tidal 450.0 Volume Blood Gas Low 5.0 5.0 PEEP Setting Blood Gas TM TM Notified Whom Blood Gas 08/21/2018 7:23: 08/21/2018 11:54 Notified Time 24 AM :06 AM Bedside Glucose 95 Blood Gas 10 Pressure Support Blood Gas EDVIN CANALES Critical Value Read Back Platelet Count 106 L Prothrombin Time 17.1 H Prothrombin Time 1.3 Ratio INR 1.38 International Normalized Ratio Activated 42.2 H Partial Thrombop last Time Thrombin Time 17.1 Fibrinogen Pending Plasma Fibrin Pending Degradation Prod ucts D-Dimer Pending Test 08/21/18 12:54 Bedside Glucose 112 Home Meds Reported Medications [Pomi-T] No Conflict Check 08/16/18 Multivitamin/Iron/Folic Acid (Centrum Adults Tablet) 1 Each Tablet, 1 EACH PO, TAB 08/16/18 Dutasteride* (Avodart*) 0.5 Mg Capsule, 0.5 MG PO DAILY, CAP 08/16/18 Bicalutamide* (Bicalutamide*) 50 Mg Tablet, 50 MG PO DAILY, TAB 08/16/18 Sodium Chloride (Sodium Chloride) 1 Gm Granules, 1 GM MC 08/16/18 Vitamin E* (Vitamin E*) 200 Unit Capsule, 180 MG PO DAILY, CAP 08/16/18 Folic Acid* (Folic Acid*) 1 Mg Tablet, 1 MG PO DAILY, TAB 08/16/18 Memantine* (Namenda* XR) 28 Mg Cap.spr.24, 28 MG PO DAILY, #30 TAB 08/16/18 Tamsulosin Hcl* (Flomax*) 0.4 Mg Cap.er.24h, 0.4 MG PO DAILY, CAP 08/16/18 Nitrofurantoin Monohyd Macrocr* (Macrobid*) 100 Mg Capsr, 100 MG PO BID, CAP 08/16/18 Medications Current Medications Miscellaneous Information [facility] This patient tabares... PRN PRN XX WOUND CARE; Start 08/16/18 at 20:00 Acetaminophen (Tylenol Tab) 500 mg Q4H PRN PO MILD PAIN(1-3)OR ELEVATED TEMP Last administered on 08/20/18 13:33; Admin Dose 500 MG; Start 08/16/18 at 20:00 Ascorbic Acid (Vitamin C) 500 mg BID GTB Last administered on 08/21/18 08:09; Admin Dose 500 MG; Start 08/16/18 at 21:00 Bicalutamide (Casodex) 50 mg DAILY PO ; Start 08/17/18 at 09:00; Status Hold Metoprolol Tartrate (Lopressor) 25 mg BID PO Last administered on 08/19/18 09:46; Admin Dose 25 MG; Start 08/17/18 at 21:00 Fish Oil (Fish Oil) 1,000 mg BID PO Last administered on 08/21/18 08:09; Admin Dose 1,000 MG; Start 08/18/18 at 14:00 Norepinephrine 250 ml @ 1.875 mls/ hr TITRATE IV Last administered on 08/19/18 11:59; Admin Dose 1.875 MLS/HR; Start 08/19/18 at 11:00 Albuterol (Ventolin Hfa) 4 puff Q4H RESP THERAPY INH Last administered on 08/21/18 09:02; Admin Dose 4 PUFF; Start 08/19/18 at 17:00 Ipratropium Dexter (Atrovent Hfa) 4 puff Q4 INH Last administered on 08/21/18 09:02; Admin Dose 4 PUFF; Start 08/19/18 at 17:00 Lactated Ringer's 1,000 ml @ 50 mls/hr Q20H IV Last administered on 08/21/18 12:57; Admin Dose 50 MLS/HR; Start 08/19/18 at 14:00 Piperacillin Sod/ Tazobactam Sod 100 ml @ 200 mls/hr Q8 IVPB Last administered on 08/21/18 05:55; Admin Dose 200 MLS/HR; Start 08/19/18 at 14:00 Phenylephrine HCl 40 mg/Dextrose 250 ml @ 37.5 mls/hr TITRATE IV Last administered on 08/21/18at 13:01; Admin Dose 18.75 MLS/HR; Start 08/19/18 at 14:00 Vancomycin HCl (Vanco Iv Per Pharmacy) PER PHARMACY DOSING NOTE XX ; Start 08/19/18 at 14:30 Vancomycin/Sodium Chloride 250 ml @ 125 mls/hr Q24H IVPB Last administered on 08/20/18at 15:00; Admin Dose 125 MLS/HR; Start 08/20/18 at 14:00 Insulin Aspart (Novolog Insulin Pen) NOVOLOG *MILD* ALGORI... Q4 SC Last administered on 08/20/18at 13:37; Admin Dose 1 UNIT; Start 08/19/18 at 22:00 Miscellaneous Information 1 ea NOTE XX ; Start 08/19/18 at 21:30 Glucose (Glutose) 15 gm Q15M PRN PO DECREASED GLUCOSE; Start 08/19/18 at 21:30 Glucose (Glutose) 22.5 gm Q15M PRN PO DECREASED GLUCOSE; Start 08/19/18 at 21:30 Dextrose (D50w Syringe) 25 ml Q15M PRN IV DECREASED GLUCOSE; Start 08/19/18 at 21:30 Dextrose (D50w Syringe) 50 ml Q15M PRN IV DECREASED GLUCOSE; Start 08/19/18 at 21:30 Glucagon (Glucagen) 1 mg Q15M PRN IM DECREASED GLUCOSE; Start 08/19/18 at 21:30 Glucose (Glutose) 15 gm Q15M PRN BUCCAL DECREASED GLUCOSE; Start 08/19/18 at 21:30 Methenamine (Hiprex) 1 gm BID GTB Last administered on 08/21/18at 08:09; Admin Dose 1 GM; Start 08/20/18 at 21:00 Prenat Multivit/ [employer] Conductor/Iron/Folic Ac () 1 tab DAILY GTB Last administered on 08/21/18at 08:10; Admin Dose 1 TAB; Start 08/21/18 at 09:00 Zinc Sulfate (Zinc Sulfate) 220 mg DAILY GTB Last administered on 08/21/18 08:09; Admin Dose 220 MG; Start 08/21/18 at 09:00 Finasteride (Proscar) 5 mg DAILY GTB Last administered on 4/30/19at 08:09; Admin Dose 5 MG; Start 08/20/18 at 10:00 Miscellaneous Information (*Rx Drug Level Order Reminder*) VANCO TROUGH ON @ 400 1400 ONCE XX ; Start 08/22/18 at 14:00; Stop 08/22/18 at 14:01 Morphine Sulfate (morphine) 1 mg Q4H PRN IV SEVERE PAIN LEVEL 7-10; Start 08/21/18 at 12:00 Assessment/Plan Hospital Course (Demo Recall) 1. Abnormal electrocardiogram, assess for acute coronary syndrome.-neg trop x 2. NL EF by echo this admi - r/o NE, no interbention currently planned, now in ICU - on bria gtt - will monitor clinically now. NOw in sinus - episodes of a tach - brief - will allow for now. 2. Cardiac arrhythmia at this time, most consistent with sinus arrhythmia.-mild tachycardia, sinus arrythmia. NL TSH - now with ainustach/a.tach- respiratory driven - not sure if BP will tolerate amio gtt - will hold for BP to stabilize.Allow for now - if sustained, will consider amio gtt. 3. History of hypertension with per report hypotension at the end of the procedure. Better now. Now low. 4. Dysphagia, status post PEG - GO follows. 5. Failure to thrive. 6. History of prostate carcinoma - poor prognoss. 7. History of aplastic anemia with ongoing anemia at this time - no active bleeding now. Brqtvrd4s now. Tolerated blood Tx - better H/H now. 8. Hypernatremia. 9. Prerenal state - will bolus NS 500 cc now. 10. Pancytopenia. JANETT RAMIREZ MD Aug 21, 2018 13:08
[2018-08-21] MEDS ORDERED: SOD CHLORIDE 0.9% 500 ML IV ONE (13:30)
[2018-08-21] MEDS: VANCOMYCIN 750 MG (PMX) 250 ML IVPB SCH (14:19)
[2018-08-21] MEDS: CEFEPIME 1GM/50 ML IVPB SCH (16:22)
--- NOTE | 2018-08-21 16:47 | CONS ---
Assessment/Plan Assessment/Plan Hospital Course (Demo Recall) # sepsis, SIRS, resp - septic shock due to UTI plus SIRS due to possible aspiration, pneumothorax - septic shock due to UTI - SIRS due to possible aspiration pneumonitis - probable aspiration pneumonitis - pneumonia vs. colonization of the airway due to enterobacter - b/l pleural effusion - s/p R sided thoracentesis on 08/17/2018. LDH 499, protein 3.2, WBC 89 with 93.2% monocytes. Cultures of the fluid are negative to date - s/p R PTX - s/p placement of R chest tube on 08/19/2018 - acute hypoxic resp failure - s/p intubation on 08/19/2018 # , heme/onc - UTI due to pseudomonas - prostate CA, with probable mets to the lungs and liver (based on CT result) - h/o recent chemotherapy for his prostate CA frequent UTI prior to admission. Pt was on long-term antibiotic for prophylaxis according to Pt's son - pancytopenia # GI, alimentary - s/p failure to thrive - s/p placement of G-J tube on 08/16/2018 # other conditions - Alzheimer's dementia recommendations - continue cefepime (08/21/2018-) for enterobacter and pseudomonas - OK to d/c IV vancomycin - d/c neutropenic precautions - I discussed the management with one of the sons, an anesthesiologist, his sister, ALLY Nielson, Dr. Chase and Dr. Whittington - the critical care time I took to care for this Pt today was from 1600 to 1640 Consultation Date/Type/Reason Admit Date/Time Aug 16, 2018 at 14:10 Date of Consultation: Aug 21, 2018 Type of Consult ID Reason for Consultation septic shock Requesting Provider: SANIA WHITTINGTON MD Date/Time of Note DATE: 08/21/18 TIME: 15:59 Hx of Present Illness This is an 87 yo male with Alzheimer's dementia and probable metastatic prostate CA. Pt was receiving chemotherapy for his prostate CA. According to one of his sons, Pt had frequent UTI although he did not have an indwelling pantoja catheter. As a result Pt was taking long-term prophylactic antibiotic as outpatient. Pt was admitted on 08/16/2018 for failure to thrive as a result of poor PO intake. Upon admission, his lab was notable for pancytopenia. Chest XR and CT revealed pulm edema and b/l pleural effusion, probable metastatic lesions in the lung and liver. G-J tube was placed on 08/16/2018. Next day, Pt had R sided thoracentesis, which yielded LDH 499, protein 3.2, WBC 89 with 93.2% monocytes. Cultures of the fluid are negative to date. On 08/19/2018, his CXR showed R sided PTX. On that day, Pt's mental status started to decline, and Pt developed acute hypoxic respiratory failure. BAIT DIGGER was called and Pt was placed on bipap. He developed hypotension, and Pt was intubated. His post-intubation CXR showed enlarging PTX and as such R sided chest tube was placed. At that time, cultures of blood, urine and tracheal aspirate were collected, and empiric IV vancomycin and pip/tazo were started. Next day 08/20/2018 Pt had low grade temp 100.2. Pt h as been on vasopressors for BP support. Today the culture of urine grew pseudomonas and culture of tracheal aspirate grew enterobacter. Pip/tazo was replaced by cefepime according to their sensitivity result. Pt is intubated and cannot give me his subjective history. Dr. Whittington requested ID consultation on this Pt. Subjective hx not possible: pt non-verbal, pt critical, pt critical status Past Medical History Medical History: urinary tract infection, other (prostate CA, dementia, cardiomyopathy, pancytopenia) Home Meds Reported Medications [Pomi-T] No Conflict Check 08/16/18 Multivitamin/Iron/Folic Acid (Centrum Adults Tablet) 1 Each Tablet, 1 EACH PO, TAB 08/16/18 Dutasteride* (Avodart*) 0.5 Mg Capsule, 0.5 MG PO DAILY, CAP 08/16/18 Bicalutamide* (Bicalutamide*) 50 Mg Tablet, 50 MG PO DAILY, TAB 08/16/18 Sodium Chloride (Sodium Chloride) 1 Gm Granules, 1 GM MC 08/16/18 Vitamin E* (Vitamin E*) 200 Unit Capsule, 180 MG PO DAILY, CAP 08/16/18 Folic Acid* (Folic Acid*) 1 Mg Tablet, 1 MG PO DAILY, TAB 08/16/18 Memantine* (Namenda* XR) 28 Mg Cap.spr.24, 28 MG PO DAILY, #30 TAB 08/16/18 Tamsulosin Hcl* (Flomax*) 0.4 Mg Cap.er.24h, 0.4 MG PO DAILY, CAP 08/16/18 Nitrofurantoin Monohyd Macrocr* (Macrobid*) 100 Mg Capsr, 100 MG PO BID, CAP 08/16/18 Medications Current Medications Miscellaneous Information (Pending Santyl Order For Wound Care) This patient tabares... PRN PRN XX WOUND CARE; Start 08/16/18 at 20:00 Acetaminophen (Tylenol Tab) 500 mg Q4H PRN PO MILD PAIN(1-3)OR ELEVATED TEMP Last administered on 08/20/18at 13:33; Admin Dose 500 MG; Start 08/16/18 at 20:00 Ascorbic Acid (Vitamin C) 500 mg BID GTB Last administered on 08/21/18at 08:09; Admin Dose 500 MG; Start 08/16/18 at 21:00 Bicalutamide (Casodex) 50 mg DAILY PO ; Start 08/17/18 at 09:00; Status Hold Metoprolol Tartrate (Lopressor) 25 mg BID PO Last administered on 08/19/18at 09:46; Admin Dose 25 MG; Start 08/17/18 at 21:00 Fish Oil (Fish Oil) 1,000 mg BID PO Last administered on 08/21/18 08:09; Admin Dose 1,000 MG; Start 08/18/18 at 14:00 Norepinephrine 250 ml @ 1.875 mls/ hr TITRATE IV Last administered on 08/19/18 11:59; Admin Dose 1.875 MLS/HR; Start 08/19/18 at 11:00 Albuterol (Ventolin Hfa) 4 puff Q4H RESP THERAPY INH Last administered on 08/21/18 15:25; Admin Dose 4 PUFF; Start 08/19/18 at 17:00 Ipratropium Sycamore (Atrovent Hfa) 4 puff Q4 INH Last administered on 08/21/18 15:25; Admin Dose 4 PUFF; Start 08/19/18 at 17:00 Lactated Ringer's 1,000 ml @ 50 mls/hr Q20H IV Last administered on 08/21/18 12:57; Admin Dose 50 MLS/HR; Start 08/19/18 at 14:00 Phenylephrine HCl 40 mg/Dextrose 250 ml @ 37.5 mls/hr TITRATE IV Last administered on 08/21/18at 13:01; Admin Dose 18.75 MLS/HR; Start 08/19/18 at 14:00 Vancomycin HCl (Vanco Iv Per Pharmacy) PER PHARMACY DOSING NOTE XX ; Start 08/19/18 at 14:30 Vancomycin/Sodium Chloride 250 ml @ 125 mls/hr Q24H IVPB Last administered on 08/21/18at 14:19; Admin Dose 125 MLS/HR; Start 08/20/18 at 14:00 Insulin Aspart (Novolog Insulin Pen) NOVOLOG *MILD* ALGORI... Q4 SC Last administered on 08/20/18at 13:37; Admin Dose 1 UNIT; Start 08/19/18 at 22:00 Miscellaneous Information 1 ea NOTE XX ; Start 08/19/18 at 21:30 Glucose (Glutose) 15 gm Q15M PRN PO DECREASED GLUCOSE; Start 08/19/18 at 21:30 Glucose (Glutose) 22.5 gm Q15M PRN PO DECREASED GLUCOSE; Start 08/19/18 at 21:30 Dextrose (D50w Syringe) 25 ml Q15M PRN IV DECREASED GLUCOSE; Start 08/19/18 at 21:30 Dextrose (D50w Syringe) 50 ml Q15M PRN IV DECREASED GLUCOSE; Start 08/19/18 at 21:30 Glucagon (Glucagen) 1 mg Q15M PRN IM DECREASED GLUCOSE; Start 08/19/18 at 21:30 Glucose (Glutose) 15 gm Q15M PRN BUCCAL DECREASED GLUCOSE; Start 08/19/18 at 21:30 Methenamine (Hiprex) 1 gm BID GTB Last administered on 08/21/18at 08:09; Admin Dose 1 GM; Start 08/20/18 at 21:00 Prenat Multivit/ Mora/Iron/Folic Ac () 1 tab DAILY GTB Last administered on 08/21/18 08:10; Admin Dose 1 TAB; Start 08/21/18 at 09:00 Zinc Sulfate (Zinc Sulfate) 220 mg DAILY GTB Last administered on 08/21/18 08:09; Admin Dose 220 MG; Start 08/21/18 at 09:00 Finasteride (Proscar) 5 mg DAILY GTB Last administered on 4/30/19at 08:09; Admin Dose 5 MG; Start 08/20/18 at 10:00 Miscellaneous Information (*Rx Drug Level Order Reminder*) VANCO TROUGH ON @ 400 1400 ONCE XX ; Start 08/22/18 at 14:00; Stop 08/22/18 at 14:01 Morphine Sulfate (morphine) 1 mg Q4H PRN IV SEVERE PAIN LEVEL 7-10; Start 08/21/18 at 12:00 Cefepime HCl 50 ml @ 100 mls/hr Q12 IVPB ; Start 08/21/18 at 14:27 Allergies: Coded Allergies: No Known Allergy (Unverified , 08/16/18) Exam/Review of Systems Exam Vitals Vital Signs Date Temp Pulse Resp B/P (MAP) Pulse Ox O2 O2 Flow FiO2 Time Delivery Rate 08/21/18 98 20 94/55 (68) 100 Mechanical 13:30 Ventilator 08/21/18 97.6 12:00 08/21/18 30 11:50 08/19/18 4.0 08:00 Intake and Output 08/20/18 08/20/18 08/21/18 1515:00 23:00 07:00 IntakeIntake Total 1021.25 ml 1010 ml 952.5 ml OutputOutput Total 295 ml 395 ml 490 ml BalanceBalance 726.25 ml 615 ml 462.5 ml Constitutional: non-verbal, frail Psych: confusion Head: normocephalic, atraumatic Eyes: nl conjunctiva, nl lids, nl sclera ENMT: intubated, other (dry mucus membranes) Neck: other (not swollen) Respiratory: crackles/rales, diminished breath sounds Cardiovascular: other (tachycardic and regular) Gastrointestinal: soft, non-tender, other (+feeding tube) Genitourinary - Male: other (FC) Musculoskeletal: No swelling Extremities: pitting pedal edema Neurological: unresponsive Skin: rash or lesions (ecchymoses of b/l UE) Results Result Diagram: 08/21/18 1212 08/21/18 0500 Results 24hrs Laboratory Tests Test 08/20/18 17:00 08/20/18 17:11 08/20/18 21:28 08/21/18 01:50 Stool Occult NEGATIVE Blood Bedside Glucose 137 130 115 Test 08/21/18 05:00 08/21/18 05:12 08/21/18 05:56 08/21/18 07:00 White Blood 4.4 #L Count Red Blood Count 3.78 L Hemoglobin 10.5 L Hematocrit 31.6 L Mean Corpuscular 83.6 Volume Mean Corpuscular 27.8 L Hemoglobin Mean Corpuscular 33.2 Hemoglobin Glenny nt Red Cell 17.6 H Distribution Width Platelet Count 72 L Mean Platelet Volume Immature 6.400 H Granulocytes % Neutrophils % Segmented 19 L Neutrophils % (Manual) Band Neutrophils 40 H % (Manual) Lymphocytes % Lymphocytes % 27 (Manual) Reactive 1 H Lymphocytes % (Manual) Monocytes % Monocytes % 7 (Manual) Eosinophils % Basophils % Metamyelocytes % 1 H (manual) Myelocytes % 4 H (Manual) Promyelocytes % 1 H (Manual) Nucleated Red 18 H Blood Cells % Immature 0.280 H Granulocytes # Neutrophils # Neutrophils # 0.9 L (Manual) Band Neutrophils 1.7 H # Lymphocytes 1.1 (Manual) Lymphocytes # Reactive 0.0 Lymphocytes # Monocytes # Monocytes # 0.3 (Manual) Eosinophils # Basophils # Metamyelocytes # 0.0 Myelocytes # 0.1 H Promyelocytes # 0.0 Nucleated Red Blood Cells # Toxic 2+ Granulation Platelet DECREASED Estimate Polychromasia 3+ Poikilocytosis 3+ Anisocytosis 1+ Microcytosis 1+ Ovalocytes 1+ Sodium Level 138 Potassium Level 3.6 Chloride Level 109 Carbon Dioxide 22 Level Anion Gap 7 Blood Urea 38 H Nitrogen Creatinine 0.54 L Est Glomerular Filtrat Rate mL/min Glucose Level 114 # Calcium Level 8.2 L Total Bilirubin 0.6 Direct Bilirubin 0.00 Indirect 0.6 Bilirubin Aspartate Amino 295 #H Transf (AST/SGOT ) Alanine 21 Aminotransferase (ALT/SGPT) Alkaline 319 H Phosphatase Total Protein 4.9 #L Albumin 2.2 L Globulin 2.70 Albumin/Globulin 0.81 Ratio Lab Scanned BLOOD TRANSFUSI Report ON Bedside Glucose 115 Blood Gas Blood arterial Specimen Source Arterial Blood 08/21/2018 7:12: Date Drawn 33 AM Arterial Blood 7.463 H pH (Temp corrected) Arterial Blood 29.3 L pCO2 (Temp correct) Arterial Blood 104.3 H pO2 (Temp corrected) Arterial Blood 20.5 L HCO3 Arterial Blood -2.3 Base Excess Arterial Blood 97.6 Oxygen Saturatio n Jarod Test ACCEPTAB Arterial Blood Right Radial Gas Puncture Site Arterial 0.1 Blood Carboxyhem oglobin Arterial Blood 0.4 Methemoglobin Blood Gas A-a O2 75.2 H Differential Oxyhemoglobin 97.1 Percent Blood Gas 37.0 Temperature Blood Gas 16.0 Respiration Rate Blood Gas Actual 20 Respiration Rate Blood Gas VENT - AC Modality FiO2 30.0 Blood Gas Tidal 450.0 Volume Blood Gas Low 5.0 PEEP Setting Blood Gas TM Notified Whom Blood Gas 08/21/2018 7:23: Notified Time 24 AM Test 08/21/18 08:32 08/21/18 11:30 08/21/18 12:11 08/21/18 12:12 Bedside Glucose 95 Blood Gas Blood arterial Specimen Source Arterial Blood 08/21/2018 11:35 Date Drawn :58 AM Arterial Blood 7.298 *L pH (Temp corrected) Arterial Blood 50.5 H pCO2 (Temp correct) Arterial Blood 83.3 pO2 (Temp corrected) Arterial Blood 24.2 HCO3 Arterial Blood -2.7 Base Excess Arterial Blood 94.7 L Oxygen Saturatio n Jarod Test ACCEPTAB Arterial Blood Right Radial Gas Puncture Site Arterial 0.6 Blood Carboxyhem oglobin Arterial Blood 0.4 Methemoglobin Blood Gas A-a O2 71.3 H Differential Oxyhemoglobin 93.8 Percent Blood Gas 37.0 Temperature Blood Gas Actual 24 Respiration Rate Blood Gas VENT - CPAP Modality FiO2 30.0 Blood Gas Low 5.0 PEEP Setting Blood Gas 10 Pressure Support Blood Gas EDVIN CANALES Critical Value Read Back Blood Gas TM Notified Whom Blood Gas 08/21/2018 11:54 Notified Time :06 AM Lactate 5980 H Dehydrogenase Platelet Count 106 L Prothrombin Time 17.1 H Prothrombin Time 1.3 Ratio INR 1.38 International Normalized Ratio Activated 42.2 H Partial Thrombop last Time Thrombin Time 17.1 Fibrinogen 867.0 #H Plasma Fibrin >10 and <40 H Degradation Prod ucts D-Dimer 8503.11 H D-Dimer Comment Random Cortisol 37.1 Test 08/21/18 12:54 Bedside Glucose 112 Medications Medication Current Medications Miscellaneous Information (Pending Santyl Order For Wound Care) This patient tabares... PRN PRN XX WOUND CARE; Start 08/16/18 at 20:00 Acetaminophen (Tylenol Tab) 500 mg Q4H PRN PO MILD PAIN(1-3)OR ELEVATED TEMP Last administered on 08/20/18 13:33; Admin Dose 500 MG; Start 08/16/18 at 20:00 Ascorbic Acid (Vitamin C) 500 mg BID GTB Last administered on 08/21/18 08:09; Admin Dose 500 MG; Start 08/16/18 at 21:00 Bicalutamide (Casodex) 50 mg DAILY PO ; Start 08/17/18 at 09:00; Status Hold Metoprolol Tartrate (Lopressor) 25 mg BID PO Last administered on 08/19/18 09:46; Admin Dose 25 MG; Start 08/17/18 at 21:00 Fish Oil (Fish Oil) 1,000 mg BID PO Last administered on 08/21/18 08:09; Admin Dose 1,000 MG; Start 08/18/18 at 14:00 Norepinephrine 250 ml @ 1.875 mls/ hr TITRATE IV Last administered on 08/19/18 11:59; Admin Dose 1.875 MLS/HR; Start 08/19/18 at 11:00 Albuterol (Ventolin Hfa) 4 puff Q4H RESP THERAPY INH Last administered on 08/21/18 15:25; Admin Dose 4 PUFF; Start 08/19/18 at 17:00 Ipratropium Sycamore (Atrovent Hfa) 4 puff Q4 INH Last administered on 08/21/18 15:25; Admin Dose 4 PUFF; Start 08/19/18 at 17:00 Lactated Ringer's 1,000 ml @ 50 mls/hr Q20H IV Last administered on 08/21/18 12:57; Admin Dose 50 MLS/HR; Start 08/19/18 at 14:00 Phenylephrine HCl 40 mg/Dextrose 250 ml @ 37.5 mls/hr TITRATE IV Last administered on 08/21/18 13:01; Admin Dose 18.75 MLS/HR; Start 08/19/18 at 14:00 Vancomycin HCl (Vanco Iv Per Pharmacy) PER PHARMACY DOSING NOTE XX ; Start 08/19/18 at 14:30 Vancomycin/Sodium Chloride 250 ml @ 125 mls/hr Q24H IVPB Last administered on 08/21/18 14:19; Admin Dose 125 MLS/HR; Start 08/20/18 at 14:00 Insulin Aspart (Novolog Insulin Pen) NOVOLOG *MILD* ALGORI... Q4 SC Last administered on 08/20/18at 13:37; Admin Dose 1 UNIT; Start 08/19/18 at 22:00 Miscellaneous Information 1 ea NOTE XX ; Start 08/19/18 at 21:30 Glucose (Glutose) 15 gm Q15M PRN PO DECREASED GLUCOSE; Start 08/19/18 at 21:30 Glucose (Glutose) 22.5 gm Q15M PRN PO DECREASED GLUCOSE; Start 08/19/18 at 21:30 Dextrose (D50w Syringe) 25 ml Q15M PRN IV DECREASED GLUCOSE; Start 08/19/18 at 21:30 Dextrose (D50w Syringe) 50 ml Q15M PRN IV DECREASED GLUCOSE; Start 08/19/18 at 21:30 Glucagon (Glucagen) 1 mg Q15M PRN IM DECREASED GLUCOSE; Start 08/19/18 at 21:30 Glucose (Glutose) 15 gm Q15M PRN BUCCAL DECREASED GLUCOSE; Start 08/19/18 at 21:30 Methenamine (Hiprex) 1 gm BID GTB Last administered on 08/21/18at 08:09; Admin Dose 1 GM; Start 08/20/18 at 21:00 Prenat Multivit/ Mora/Iron/Folic Ac () 1 tab DAILY GTB Last administered on 08/21/18at 08:10; Admin Dose 1 TAB; Start 08/21/18 at 09:00 Zinc Sulfate (Zinc Sulfate) 220 mg DAILY GTB Last administered on 08/21/18at 08:09; Admin Dose 220 MG; Start 08/21/18 at 09:00 Finasteride (Proscar) 5 mg DAILY GTB Last administered on 08/21/18at 08:09; Admin Dose 5 MG; Start 08/20/18 at 10:00 Miscellaneous Information (*Rx Drug Level Order Reminder*) VANCO TROUGH ON @ 400 1400 ONCE XX ; Start 08/22/18 at 14:00; Stop 08/22/18 at 14:01 Morphine Sulfate (morphine) 1 mg Q4H PRN IV SEVERE PAIN LEVEL 7-10; Start 08/21/18 at 12:00 Cefepime HCl 50 ml @ 100 mls/hr Q12 IVPB ; Start 4/30/19 at 14:27 JC LAMBERT M.D. Aug 21, 2018 16:09
--- NOTE | 2018-08-21 16:48 | CONS ---
Assessment/Plan Assessment/Plan Assessment/Plan (Daily) 1. acute prerenal azotemia 2. Septic shock 3. right sided pneumothorax s/p R chest tube placement 4. acute hypoxemic respiratory failure intubated on ventilator 5. Metastatic prostate CA 6. Dysphagia s/p G tube placement Plan : s/p IV abx zosyn and vancomycin, Currently on IV abx cefepime, Renally dose all abx and monitor electrolytes IVF LR at 50 cc/hr Chest tube in case Pulmonary has been following for ventilator care ID following Consultation Date/Type/Reason Admit Date/Time Aug 16, 2018 at 14:10 Date of Consultation: Aug 21, 2018 Type of Consult NEPHROLOGY Reason for Consultation Acute prerenal azotemia, electrolytes monitoring Requesting Provider: SANIA WHITTINGTON MD Date/Time of Note DATE: 08/21/18 TIME: 16:47 Hx of Present Illness 87 yo male with Alzheimer's dementia and probable metastatic prostate CA. Pt was receiving chemotherapy for his prostate CA. According to one of his sons, Pt had frequent UTI although he did not have an indwelling pantoja catheter. As a result Pt was taking long-term prophylactic antibiotic as outpatient. Pt was admitted on 08/16/2018 for failure to thrive as a result of poor PO intake. Upon admission, his lab was notable for pancytopenia. Chest XR and CT revealed pulm edema and b/l pleural effusion, probable metastatic lesions in the lung and liver. G-J tube was placed on 08/16/2018. Next day, Pt had R sided thoracentesis, which yielded LDH 499, protein 3.2, WBC 89 with 93.2% monocytes. Cultures of the fluid are negative to date. On 08/19/2018, his CXR showed R sided PTX. On that day, Pt's mental status started to decline, and Pt developed acute hypoxic respiratory failure. MERCHANDISE CARRIER was called and Pt was placed on bipap. He developed hypotension, and Pt was intubated. His post-intubation CXR showed enlarging PTX and as such R sided chest tube was placed. he has been IV abx as per ID, He is noted to have elevated BUN, Renal has been consulted for prerenal azotemia dn close monitoring of electorlytes. Subjective hx not possible: pt non-verbal, pt critical status Past Medical History Medical History: high cholesterol, hypertension Home Meds Reported Medications [Pomi-T] No Conflict Check 08/16/18 Multivitamin/Iron/Folic Acid (Centrum Adults Tablet) 1 Each Tablet, 1 EACH PO, TAB 08/16/18 Dutasteride* (Avodart*) 0.5 Mg Capsule, 0.5 MG PO DAILY, CAP 08/16/18 Bicalutamide* (Bicalutamide*) 50 Mg Tablet, 50 MG PO DAILY, TAB 08/16/18 Sodium Chloride (Sodium Chloride) 1 Gm Granules, 1 GM MC 08/16/18 Vitamin E* (Vitamin E*) 200 Unit Capsule, 180 MG PO DAILY, CAP 08/16/18 Folic Acid* (Folic Acid*) 1 Mg Tablet, 1 MG PO DAILY, TAB 08/16/18 Memantine* (Namenda* XR) 28 Mg Cap.spr.24, 28 MG PO DAILY, #30 TAB 08/16/18 Tamsulosin Hcl* (Flomax*) 0.4 Mg Cap.er.24h, 0.4 MG PO DAILY, CAP 08/16/18 Nitrofurantoin Monohyd Macrocr* (Macrobid*) 100 Mg Capsr, 100 MG PO BID, CAP 08/16/18 Medications Current Medications Miscellaneous Information (Pending [facility] Order For Wound Care) This patient tabares... PRN PRN XX WOUND CARE; Start 08/16/18 at 20:00 Acetaminophen (Tylenol Tab) 500 mg Q4H PRN PO MILD PAIN(1-3)OR ELEVATED TEMP Last administered on 08/20/18at 13:33; Admin Dose 500 MG; Start 08/16/18 at 20:00 Ascorbic Acid (Vitamin C) 500 mg BID GTB Last administered on 08/21/18at 08:09; Admin Dose 500 MG; Start 08/16/18 at 21:00 Bicalutamide (Casodex) 50 mg DAILY PO ; Start 08/17/18 at 09:00; Status Hold Metoprolol Tartrate (Lopressor) 25 mg BID PO Last administered on 08/19/18at 09:46; Admin Dose 25 MG; Start 08/17/18 at 21:00 Fish Oil (Fish Oil) 1,000 mg BID PO Last administered on 08/21/18at 08:09; Admin Dose 1,000 MG; Start 08/18/18 at 14:00 Norepinephrine 250 ml @ 1.875 mls/ hr TITRATE IV Last administered on 08/19/18at 11:59; Admin Dose 1.875 MLS/HR; Start 08/19/18 at 11:00 Albuterol (Ventolin Hfa) 4 puff Q4H RESP THERAPY INH Last administered on 08/21/18 15:25; Admin Dose 4 PUFF; Start 08/19/18 at 17:00 Ipratropium [place] (Atrovent Hfa) 4 puff Q4 INH Last administered on 08/21/18 15:25; Admin Dose 4 PUFF; Start 08/19/18 at 17:00 Lactated Ringer's 1,000 ml @ 50 mls/hr Q20H IV Last administered on 08/21/18 12:57; Admin Dose 50 MLS/HR; Start 08/19/18 at 14:00 Phenylephrine HCl 40 mg/Dextrose 250 ml @ 37.5 mls/hr TITRATE IV Last administered on 08/21/18 13:01; Admin Dose 18.75 MLS/HR; Start 08/19/18 at 14:00 Insulin Aspart (Novolog Insulin Pen) NOVOLOG *MILD* ALGORI... Q4 SC Last administered on 08/20/18 13:37; Admin Dose 1 UNIT; Start 08/19/18 at 22:00 Miscellaneous Information 1 ea NOTE XX ; Start 08/19/18 at 21:30 Glucose (Glutose) 15 gm Q15M PRN PO DECREASED GLUCOSE; Start 08/19/18 at 21:30 Glucose (Glutose) 22.5 gm Q15M PRN PO DECREASED GLUCOSE; Start 08/19/18 at 21:30 Dextrose (D50w Syringe) 25 ml Q15M PRN IV DECREASED GLUCOSE; Start 08/19/18 at 21:30 Dextrose (D50w Syringe) 50 ml Q15M PRN IV DECREASED GLUCOSE; Start 08/19/18 at 21:30 Glucagon (Glucagen) 1 mg Q15M PRN IM DECREASED GLUCOSE; Start 08/19/18 at 21:30 Glucose (Glutose) 15 gm Q15M PRN BUCCAL DECREASED GLUCOSE; Start 08/19/18 at 21:30 Methenamine (Hiprex) 1 gm BID GTB Last administered on 08/21/18at 08:09; Admin Dose 1 GM; Start 08/20/18 at 21:00 Prenat Multivit/ Natural Gas Inspector/Iron/Folic Ac () 1 tab DAILY GTB Last administe red on 08/21/18at 08:10; Admin Dose 1 TAB; Start 08/21/18 at 09:00 Zinc Sulfate (Zinc Sulfate) 220 mg DAILY GTB Last administered on 08/21/18at 08:09; Admin Dose 220 MG; Start 08/21/18 at 09:00 Finasteride (Proscar) 5 mg DAILY GTB Last administered on 08/21/18at 08:09; Admin Dose 5 MG; Start 08/20/18 at 10:00 Morphine Sulfate (morphine) 1 mg Q4H PRN IV SEVERE PAIN LEVEL 7-10; Start 08/21/18 at 12:00 Cefepime HCl 50 ml @ 100 mls/hr Q12 IVPB Last administered on 08/21/18at 16:22; Admin Dose 100 MLS/HR; Start 08/21/18 at 14:27 Allergies: Coded Allergies: No Known Allergy (Unverified , 08/16/18) Past Surgical History Past Surgical Hx: other (+ tracheostomy, G tube ) Family History Significant Family History: other (not available ) Social History Alcohol Use: none Smoking Status: Never smoker Drug Use: none Exam/Review of Systems Exam Vitals Vital Signs Date Temp Pulse Resp B/P (MAP) Pulse Ox O2 O2 Flow FiO2 Time Delivery Rate 08/21/18 100 16:00 08/21/18 50 16:00 08/21/18 97.8 21 111/57 99 Mechanical 16:00 (75) Ventilator 08/19/18 4.0 08:00 Intake and Output 08/20/18 08/20/18 08/21/18 1515:00 23:00 07:00 IntakeIntake Total 1021.25 ml 1010 ml 952.5 ml OutputOutput Total 295 ml 395 ml 490 ml BalanceBalance 726.25 ml 615 ml 462.5 ml Exam Constitutional: non-verbal, frail, intubated on ventilator Respiratory: crackles/rales, diminished breath sounds Cardiovascular: other (tachycardic and regular) Gastrointestinal: soft, non-tender, other (+feeding tube) Genitourinary - Male: other (FC) Musculoskeletal: No swelling Extremities: pitting pedal edema Neurological: unresponsive Skin: rash or lesions (ecchymoses of b/l UE) Results Result Diagram: 08/21/18 1212 08/21/18 0500 Results 24hrs Laboratory Tests Test 08/20/18 17:00 08/20/18 17:11 08/20/18 21:28 08/21/18 01:50 Stool Occult NEGATIVE Blood Bedside Glucose 137 130 115 Test 08/21/18 05:00 08/21/18 05:12 08/21/18 05:56 08/21/18 07:00 White Blood 4.4 #L Count Red Blood Count 3.78 L Hemoglobin 10.5 L Hematocrit 31.6 L Mean Corpuscular 83.6 Volume Mean Corpuscular 27.8 L Hemoglobin Mean Corpuscular 33.2 Hemoglobin Glenny nt Red Cell 17.6 H Distribution Width Platelet Count 72 L Mean Platelet Volume Immature 6.400 H Granulocytes % Neutrophils % Segmented 19 L Neutrophils % (Manual) Band Neutrophils 40 H % (Manual) Lymphocytes % Lymphocytes % 27 (Manual) Reactive 1 H Lymphocytes % (Manual) Monocytes % Monocytes % 7 (Manual) Eosinophils % Basophils % Metamyelocytes % 1 H (manual) Myelocytes % 4 H (Manual) Promyelocytes % 1 H (Manual) Nucleated Red 18 H Blood Cells % Immature 0.280 H Granulocytes # Neutrophils # Neutrophils # 0.9 L (Manual) Band Neutrophils 1.7 H # Lymphocytes 1.1 (Manual) Lymphocytes # Reactive 0.0 Lymphocytes # Monocytes # Monocytes # 0.3 (Manual) Eosinophils # Basophils # Metamyelocytes # 0.0 Myelocytes # 0.1 H Promyelocytes # 0.0 Nucleated Red Blood Cells # Toxic 2+ Granulation Platelet DECREASED Estimate Polychromasia 3+ Poikilocytosis 3+ Anisocytosis 1+ Microcytosis 1+ Ovalocytes 1+ Sodium Level 138 Potassium Level 3.6 Chloride Level 109 Carbon Dioxide 22 Level Anion Gap 7 Blood Urea 38 H Nitrogen Creatinine 0.54 L Est Glomerular Filtrat Rate mL/min Glucose Level 114 # Calcium Level 8.2 L Total Bilirubin 0.6 Direct Bilirubin 0.00 Indirect 0.6 Bilirubin Aspartate Amino 295 #H Transf (AST/SGOT ) Alanine 21 Aminotransferase (ALT/SGPT) Alkaline 319 H Phosphatase Total Protein 4.9 #L Albumin 2.2 L Globulin 2.70 Albumin/Globulin 0.81 Ratio Lab Scanned BLOOD TRANSFUSI Report ON Bedside Glucose 115 Blood Gas Blood arterial Specimen Source Arterial Blood 08/21/2018 7:12: Date Drawn 33 AM Arterial Blood 7.463 H pH (Temp corrected) Arterial Blood 29.3 L pCO2 (Temp correct) Arterial Blood 104.3 H pO2 (Temp corrected) Arterial Blood 20.5 L HCO3 Arterial Blood -2.3 Base Excess Arterial Blood 97.6 Oxygen Saturatio n Jarod Test ACCEPTAB Arterial Blood Right Radial Gas Puncture Site Arterial 0.1 Blood Carboxyhem oglobin Arterial Blood 0.4 Methemoglobin Blood Gas A-a O2 75.2 H Differential Oxyhemoglobin 97.1 Percent Blood Gas 37.0 Temperature Blood Gas 16.0 Respiration Rate Blood Gas Actual 20 Respiration Rate Blood Gas VENT - AC Modality FiO2 30.0 Blood Gas Tidal 450.0 Volume Blood Gas Low 5.0 PEEP Setting Blood Gas TM Notified Whom Blood Gas 08/21/2018 7:23: Notified Time 24 AM Test 08/21/18 08:32 08/21/18 11:30 08/21/18 12:11 08/21/18 12:12 Bedside Glucose 95 Blood Gas Blood arterial Specimen Source Arterial Blood 08/21/2018 11:35 Date Drawn :58 AM Arterial Blood 7.298 *L pH (Temp corrected) Arterial Blood 50.5 H pCO2 (Temp correct) Arterial Blood 83.3 pO2 (Temp corrected) Arterial Blood 24.2 HCO3 Arterial Blood -2.7 Base Excess Arterial Blood 94.7 L Oxygen Saturatio n Jarod Test ACCEPTAB Arterial Blood Right Radial Gas Puncture Site Arterial 0.6 Blood Carboxyhem oglobin Arterial Blood 0.4 Methemoglobin Blood Gas A-a O2 71.3 H Differential Oxyhemoglobin 93.8 Percent Blood Gas 37.0 Temperature Blood Gas Actual 24 Respiration Rate Blood Gas VENT - CPAP Modality FiO2 30.0 Blood Gas Low 5.0 PEEP Setting Blood Gas 10 Pressure Support Blood Gas EDVIN CANALES Critical Value Read Back Blood Gas TM Notified Whom Blood Gas 08/21/2018 11:54 Notified Time :06 AM Lactate 5980 H Dehydrogenase Platelet Count 106 L Prothrombin Time 17.1 H Prothrombin Time 1.3 Ratio INR 1.38 International Normalized Ratio Activated 42.2 H Partial Thrombop last Time Thrombin Time 17.1 Fibrinogen 867.0 #H Plasma Fibrin >10 and <40 H Degradation Prod ucts D-Dimer 8503.11 H D-Dimer Comment Random Cortisol 37.1 Test 08/21/18 12:54 08/21/18 16:11 Bedside Glucose 112 124 Medications Medication Current Medications Miscellaneous Information (Pending [facility] Order For Wound Care) This patient tabares... PRN PRN XX WOUND CARE; Start 08/16/18 at 20:00 Acetaminophen (Tylenol Tab) 500 mg Q4H PRN PO MILD PAIN(1-3)OR ELEVATED TEMP Last administered on 08/20/18 13:33; Admin Dose 500 MG; Start 08/16/18 at 20:00 Ascorbic Acid (Vitamin C) 500 mg BID GTB Last administered on 08/21/18 08:09; Admin Dose 500 MG; Start 08/16/18 at 21:00 Bicalutamide (Casodex) 50 mg DAILY PO ; Start 08/17/18 at 09:00; Status Hold Metoprolol Tartrate (Lopressor) 25 mg BID PO Last administered on 08/19/18 09:46; Admin Dose 25 MG; Start 08/17/18 at 21:00 Fish Oil (Fish Oil) 1,000 mg BID PO Last administered on 08/21/18 08:09; Admin Dose 1,000 MG; Start 08/18/18 at 14:00 Norepinephrine 250 ml @ 1.875 mls/ hr TITRATE IV Last administered on 08/19/18 11:59; Admin Dose 1.875 MLS/HR; Start 08/19/18 at 11:00 Albuterol (Ventolin Hfa) 4 puff Q4H RESP THERAPY INH Last administered on 08/21/18 15:25; Admin Dose 4 PUFF; Start 08/19/18 at 17:00 Ipratropium [place] (Atrovent Hfa) 4 puff Q4 INH Last administered on 08/21/18 15:25; Admin Dose 4 PUFF; Start 08/19/18 at 17:00 Lactated Ringer's 1,000 ml @ 50 mls/hr Q20H IV Last administered on 08/21/18 12:57; Admin Dose 50 MLS/HR; Start 08/19/18 at 14:00 Phenylephrine HCl 40 mg/Dextrose 250 ml @ 37.5 mls/hr TITRATE IV Last administered on 08/21/18at 13:01; Admin Dose 18.75 MLS/HR; Start 08/19/18 at 14:00 Insulin Aspart (Novolog Insulin Pen) NOVOLOG *MILD* ALGORI... Q4 SC Last administered on 08/20/18at 13:37; Admin Dose 1 UNIT; Start 08/19/18 at 22:00 Miscellaneous Information 1 ea NOTE XX ; Start 08/19/18 at 21:30 Glucose (Glutose) 15 gm Q15M PRN PO DECREASED GLUCOSE; Start 08/19/18 at 21:30 Glucose (Glutose) 22.5 gm Q15M PRN PO DECREASED GLUCOSE; Start 08/19/18 at 21:30 Dextrose (D50w Syringe) 25 ml Q15M PRN IV DECREASED GLUCOSE; Start 08/19/18 at 21:30 Dextrose (D50w Syringe) 50 ml Q15M PRN IV DECREASED GLUCOSE; Start 08/19/18 at 21:30 Glucagon (Glucagen) 1 mg Q15M PRN IM DECREASED GLUCOSE; Start 08/19/18 at 21:30 Glucose (Glutose) 15 gm Q15M PRN BUCCAL DECREASED GLUCOSE; Start 08/19/18 at 21:30 Methenamine (Hiprex) 1 gm BID GTB Last administered on 08/21/18at 08:09; Admin Dose 1 GM; Start 08/20/18 at 21:00 Prenat Multivit/ [place]/Iron/Folic Ac () 1 tab DAILY GTB Last administered on 08/21/18at 08:10; Admin Dose 1 TAB; Start 08/21/18 at 09:00 Zinc Sulfate (Zinc Sulfate) 220 mg DAILY GTB Last administered on 08/21/18at 08:09; Admin Dose 220 MG; Start 08/21/18 at 09:00 Finasteride (Proscar) 5 mg DAILY GTB Last administered on 08/21/18at 08:09; Admin Dose 5 MG; Start 08/20/18 at 10:00 Morphine Sulfate (morphine) 1 mg Q4H PRN IV SEVERE PAIN LEVEL 7-10; Start 08/21/18 at 12:00 Cefepime HCl 50 ml @ 100 mls/hr Q12 IVPB Last administered on 08/21/18at 16:22; Admin Dose 100 MLS/HR; Start 08/21/18 at 14:27 CELIA KUMAR MD Aug 21, 2018 16:48
--- NOTE | 2018-08-21 17:20 | RADRPT ---
Vent Rate: 89 bpm RR Interval: 673 msec NE Interval: 150 msec QRS Duration: 73 msec QT Interval: 360 msec QTC Interval: 439 msec P-R-T [place]: 63 - 62 - 76 degrees Ectopic atrial rhythm with bigeminy pattern Anterior infarct, old. Electronically Signed By: Amol Das
[2018-08-21] MEDS: ACETAMINOPHEN 500 MG TAB PO PRN (21:07)
[2018-08-22] VITALS (77 sets, daily range): BP systolic 88–147; BP diastolic 41–89; PULSE 90–148; RESP 18–29
[2018-08-22] MEDS: PHENYLephrine 40 MG in DEXTROSE 5% 246 ML IV SCH (00:09)
[2018-08-22] MEDS: CEFEPIME 1GM/50 ML IVPB SCH ×3 (00:09→20:18)
[2018-08-22] MEDS: INSULIN ASPART [NOVOLOG] 3 ML PEN SC SCH ×6 (00:13→20:21)
[2018-08-22] MEDS: ALBUTEROL HFA 8 GM INHALER INH SCH ×6 (01:18→21:31)
[2018-08-22] MEDS: IPRATROPIUM (HFA) 12.9 GM INHALER INH SCH ×6 (01:18→21:31)
--- NOTE | 2018-08-22 04:18 | PN ---
Date/Time of Note Date/Time of Note DATE: 08/22/18 TIME: 04:03 Assessment/Plan VTE Prophylaxis Risk score (from [facility] [place]0 risk: 11 SCD applied (from [facility] [place] Yes SCD contraindicated: other Pharmacological prophylaxis: other Pharm contraindication: other Lines/Catheters IV Catheter Type (from [facility]): Central Line Central line still needed: Yes Urinary Cath still in place: Yes Reason Cath still needed: urinary retention Assessment/Plan Assessment/Plan 1. Acute hypoxemic hypercarbic respiratory failure. - ABG revealed pH 7.25, pCO2 of 50.5 and pO2 of 83. - remains intubated and is saturating 100% on FiO2 of 50%. - sp right chest tube. 2. Bilateral pleural effusion, status post recent right-sided thoracentesis, predominantly lymphocytic exudate. Cytology is pending. 3. Metastatic prostate cancer with poor prognosis. Palliative care was recommended to the family; however, they requested treatment. -The patient was also seen by Dr. Jared Melendez from oncology standpoint 4. Dysphagia, status post jejunostomy tube which is being used for feeding. The patient is being followed by Dr. Mendez from GI standpoint. Echo revealed EF of 55% to 60%. The patient remains critically ill. - cardiology follows 5. The patient's pancytopenia appears to be from metastatic prostate cancer. Meanwhile, we will continue IV Zosyn for possible pneumonia. 6. For severe hypophosphatemia, - RESOLVED -Pancytopenia - Hem/Onc follows - Azotemia- BUN 38 - Nephrology consult appreciated Total Critical care time spent is 30 mins. Júnior Malin Result Diagram: 08/21/18 1212 08/21/18 0500 Results 24hrs Laboratory Tests Test 08/21/18 05:00 08/21/18 05:12 08/21/18 05:56 08/21/18 07:00 White Blood 4.4 #L Count Red Blood Count 3.78 L Hemoglobin 10.5 L Hematocrit 31.6 L Mean Corpuscular 83.6 Volume Mean Corpuscular 27.8 L Hemoglobin Mean Corpuscular 33.2 Hemoglobin Glenny nt Red Cell 17.6 H Distribution Width Platelet Count 72 L Mean Platelet Volume Immature 6.400 H Granulocytes % Neutrophils % Segmented 19 L Neutrophils % (Manual) Band Neutrophils 40 H % (Manual) Lymphocytes % Lymphocytes % 27 (Manual) Reactive 1 H Lymphocytes % (Manual) Monocytes % Monocytes % 7 (Manual) Eosinophils % Basophils % Metamyelocytes % 1 H (manual) Myelocytes % 4 H (Manual) Promyelocytes % 1 H (Manual) Nucleated Red 18 H Blood Cells % Immature 0.280 H Granulocytes # Neutrophils # Neutrophils # 0.9 L (Manual) Band Neutrophils 1.7 H # Lymphocytes 1.1 (Manual) Lymphocytes # Reactive 0.0 Lymphocytes # Monocytes # Monocytes # 0.3 (Manual) Eosinophils # Basophils # Metamyelocytes # 0.0 Myelocytes # 0.1 H Promyelocytes # 0.0 Nucleated Red Blood Cells # Toxic 2+ Granulation Platelet DECREASED Estimate Polychromasia 3+ Poikilocytosis 3+ Anisocytosis 1+ Microcytosis 1+ Ovalocytes 1+ Sodium Level 138 Potassium Level 3.6 Chloride Level 109 Carbon Dioxide 22 Level Anion Gap 7 Blood Urea 38 H Nitrogen Creatinine 0.54 L Est Glomerular Filtrat Rate mL/min Glucose Level 114 # Calcium Level 8.2 L Total Bilirubin 0.6 Direct Bilirubin 0.00 Indirect 0.6 Bilirubin Aspartate Amino 295 #H Transf (AST/SGOT ) Alanine 21 Aminotransferase (ALT/SGPT) Alkaline 319 H Phosphatase Total Protein 4.9 #L Albumin 2.2 L Globulin 2.70 Albumin/Globulin 0.81 Ratio Lab Scanned BLOOD TRANSFUSI Report ON Bedside Glucose 115 Blood Gas Blood arterial Specimen Source Arterial Blood 08/21/2018 7:12: Date Drawn 33 AM Arterial Blood 7.463 H pH (Temp corrected) Arterial Blood 29.3 L pCO2 (Temp correct) Arterial Blood 104.3 H pO2 (Temp corrected) Arterial Blood 20.5 L HCO3 Arterial Blood -2.3 Base Excess Arterial Blood 97.6 Oxygen Saturatio n Jarod Test ACCEPTAB Arterial Blood Right Radial Gas Puncture Site Arterial 0.1 Blood Carboxyhem oglobin Arterial Blood 0.4 Methemoglobin Blood Gas A-a O2 75.2 H Differential Oxyhemoglobin 97.1 Percent Blood Gas 37.0 Temperature Blood Gas 16.0 Respiration Rate Blood Gas Actual 20 Respiration Rate Blood Gas VENT - AC Modality FiO2 30.0 Blood Gas Tidal 450.0 Volume Blood Gas Low 5.0 PEEP Setting Blood Gas TM Notified Whom Blood Gas 08/21/2018 7:23: Notified Time 24 AM Test 08/21/18 08:32 08/21/18 11:30 08/21/18 12:11 08/21/18 12:12 Bedside Glucose 95 Blood Gas Blood arterial Specimen Source Arterial Blood 08/21/2018 11:35 Date Drawn :58 AM Arterial Blood 7.298 *L pH (Temp corrected) Arterial Blood 50.5 H pCO2 (Temp correct) Arterial Blood 83.3 pO2 (Temp corrected) Arterial Blood 24.2 HCO3 Arterial Blood -2.7 Base Excess Arterial Blood 94.7 L Oxygen Saturatio n Jarod Test ACCEPTAB Arterial Blood Right Radial Gas Puncture Site Arterial 0.6 Blood Carboxyhem oglobin Arterial Blood 0.4 Methemoglobin Blood Gas A-a O2 71.3 H Differential Oxyhemoglobin 93.8 Percent Blood Gas 37.0 Temperature Blood Gas Actual 24 Respiration Rate Blood Gas VENT - CPAP Modality FiO2 30.0 Blood Gas Low 5.0 PEEP Setting Blood Gas 10 Pressure Support Blood Gas [id number] RN Critical Value Read Back Blood Gas TM Notified Whom Blood Gas 08/21/2018 11:54 Notified Time :06 AM Lactate 5980 H Dehydrogenase Platelet Count 106 L Prothrombin Time 17.1 H Prothrombin Time 1.3 Ratio INR 1.38 International Normalized Ratio Activated 42.2 H Partial Thrombop last Time Thrombin Time 17.1 Fibrinogen 867.0 #H Plasma Fibrin >10 and <40 H Degradation Prod ucts D-Dimer 8503.11 H D-Dimer Comment Random Cortisol 37.1 Test 08/21/18 12:54 08/21/18 16:11 08/21/18 21:02 08/22/18 00:12 Bedside Glucose 112 124 114 113 Subjective 24 Hr Interval Summary Free Text/Dictation - Nad - Remains comfortable on supplement oxygen via ET tube -Patient son Dr. Camacho , A wants patient to have Tylenol only for pain. -right chest tube intact - Cortisol lab ordered per family request. Dw staff Subjective hx not possible: pt non-verbal, pt critical status Constitutional: requiring IVF Exam/Review of Systems Exam Vitals Vital Signs Date Temp Pulse Resp B/P (MAP) Pulse Ox O2 O2 Flow FiO2 Time Delivery Rate 08/22/18 95 23 114/61 100 01:15 (78) 08/22/18 Mechanical 01:00 Ventilator 08/21/18 97.2 20:00 08/21/18 50 20:00 08/19/18 4.0 08:00 Intake and Output 08/21/18 08/21/18 08/22/18 1515:00 23:00 07:00 IntakeIntake Total 907.50 ml 1001.25 ml 330 ml OutputOutput Total 325 ml 425 ml 100 ml BalanceBalance 582.50 ml 576.25 ml 230 ml Constitutional: well developed, non-verbal, frail Psych: nl mood/affect Eyes: nl sclera ENMT: nl external ears & nose Respiratory: diminished breath sounds, other (right chest tube intact) Cardiovascular: nl pulses, other (s1s2) Gastrointestinal: soft Musculoskeletal: muscle weakness, range of motion Extremities: normal pulses Neurological: unresponsive Results Results 24hrs Laboratory Tests Test 08/21/18 05:00 08/21/18 05:12 08/21/18 05:56 08/21/18 07:00 White Blood 4.4 #L Count Red Blood Count 3.78 L Hemoglobin 10.5 L Hematocrit 31.6 L Mean Corpuscular 83.6 Volume Mean Corpuscular 27.8 L Hemoglobin Mean Corpuscular 33.2 Hemoglobin Glenny nt Red Cell 17.6 H Distribution Width Platelet Count 72 L Mean Platelet Volume Immature 6.400 H Granulocytes % Neutrophils % Segmented 19 L Neutrophils % (Manual) Band Neutrophils 40 H % (Manual) Lymphocytes % Lymphocytes % 27 (Manual) Reactive 1 H Lymphocytes % (Manual) Monocytes % Monocytes % 7 (Manual) Eosinophils % Basophils % Metamyelocytes % 1 H (manual) Myelocytes % 4 H (Manual) Promyelocytes % 1 H (Manual) Nucleated Red 18 H Blood Cells % Immature 0.280 H Granulocytes # Neutrophils # Neutrophils # 0.9 L (Manual) Band Neutrophils 1.7 H # Lymphocytes 1.1 (Manual) Lymphocytes # Reactive 0.0 Lymphocytes # Monocytes # Monocytes # 0.3 (Manual) Eosinophils # Basophils # Metamyelocytes # 0.0 Myelocytes # 0.1 H Promyelocytes # 0.0 Nucleated Red Blood Cells # Toxic 2+ Granulation Platelet DECREASED Estimate Polychromasia 3+ Poikilocytosis 3+ Anisocytosis 1+ Microcytosis 1+ Ovalocytes 1+ Sodium Level 138 Potassium Level 3.6 Chloride Level 109 Carbon Dioxide 22 Level Anion Gap 7 Blood Urea 38 H Nitrogen Creatinine 0.54 L Est Glomerular Filtrat Rate mL/min Glucose Level 114 # Calcium Level 8.2 L Total Bilirubin 0.6 Direct Bilirubin 0.00 Indirect 0.6 Bilirubin Aspartate Amino 295 #H Transf (AST/SGOT ) Alanine 21 Aminotransferase (ALT/SGPT) Alkaline 319 H Phosphatase Total Protein 4.9 #L Albumin 2.2 L Globulin 2.70 Albumin/Globulin 0.81 Ratio Lab Scanned BLOOD TRANSFUSI Report ON Bedside Glucose 115 Blood Gas Blood arterial Specimen Source Arterial Blood 08/21/2018 7:12: Date Drawn 33 AM Arterial Blood 7.463 H pH (Temp corrected) Arterial Blood 29.3 L pCO2 (Temp correct) Arterial Blood 104.3 H pO2 (Temp corrected) Arterial Blood 20.5 L HCO3 Arterial Blood -2.3 Base Excess Arterial Blood 97.6 Oxygen Saturatio n Jarod Test ACCEPTAB Arterial Blood Right Radial Gas Puncture Site Arterial 0.1 Blood Carboxyhem oglobin Arterial Blood 0.4 Methemoglobin Blood Gas A-a O2 75.2 H Differential Oxyhemoglobin 97.1 Percent Blood Gas 37.0 Temperature Blood Gas 16.0 Respiration Rate Blood Gas Actual 20 Respiration Rate Blood Gas VENT - AC Modality FiO2 30.0 Blood Gas Tidal 450.0 Volume Blood Gas Low 5.0 PEEP Setting Blood Gas TM Notified Whom Blood Gas 08/21/2018 7:23: Notified Time 24 AM Test 08/21/18 08:32 08/21/18 11:30 08/21/18 12:11 08/21/18 12:12 Bedside Glucose 95 Blood Gas Blood arterial Specimen Source Arterial Blood 08/21/2018 11:35 Date Drawn :58 AM Arterial Blood 7.298 *L pH (Temp corrected) Arterial Blood 50.5 H pCO2 (Temp correct) Arterial Blood 83.3 pO2 (Temp corrected) Arterial Blood 24.2 HCO3 Arterial Blood -2.7 Base Excess Arterial Blood 94.7 L Oxygen Saturatio n Jarod Test ACCEPTAB Arterial Blood Right Radial Gas Puncture Site Arterial 0.6 Blood Carboxyhem oglobin Arterial Blood 0.4 Methemoglobin Blood Gas A-a O2 71.3 H Differential Oxyhemoglobin 93.8 Percent Blood Gas 37.0 Temperature Blood Gas Actual 24 Respiration Rate Blood Gas VENT - CPAP Modality FiO2 30.0 Blood Gas Low 5.0 PEEP Setting Blood Gas 10 Pressure Support Blood Gas EDVIN CANALES Critical Value Read Back Blood Gas TM Notified Whom Blood Gas 08/21/2018 11:54 Notified Time :06 AM Lactate 5980 H Dehydrogenase Platelet Count 106 L Prothrombin Time 17.1 H Prothrombin Time 1.3 Ratio INR 1.38 International Normalized Ratio Activated 42.2 H Partial Thrombop last Time Thrombin Time 17.1 Fibrinogen 867.0 #H Plasma Fibrin >10 and <40 H Degradation Prod ucts D-Dimer 8503.11 H D-Dimer Comment Random Cortisol 37.1 Test 08/21/18 12:54 08/21/18 16:11 08/21/18 21:02 08/22/18 00:12 Bedside Glucose 112 124 114 113 Medications Medication Current Medications Miscellaneous Information (Pending Santyl Order For Wound Care) This patient tabares... PRN PRN XX WOUND CARE; Start 08/16/18 at 20:00 Acetaminophen (Tylenol Tab) 500 mg Q4H PRN PO MILD PAIN(1-3)OR ELEVATED TEMP Last administered on 08/21/18at 21:07; Admin Dose 500 MG; Start 08/16/18 at 20:00 Ascorbic Acid (Vitamin C) 500 mg BID GTB Last administered on 08/21/18 21:09; Admin Dose 500 MG; Start 08/16/18 at 21:00 Bicalutamide (Casodex) 50 mg DAILY PO ; Start 08/17/18 at 09:00; Status Hold Metoprolol Tartrate (Lopressor) 25 mg BID PO Last administered on 08/19/18at 09:46; Admin Dose 25 MG; Start 08/17/18 at 21:00 Fish Oil (Fish Oil) 1,000 mg BID PO Last administered on 08/21/18 08:09; Admin Dose 1,000 MG; Start 08/18/18 at 14:00 Norepinephrine 250 ml @ 1.875 mls/ hr TITRATE IV Last administered on 08/19/18at 11:59; Admin Dose 1.875 MLS/HR; Start 08/19/18 at 11:00 Albuterol (Ventolin Hfa) 4 puff Q4H RESP THERAPY INH Last administered on 08/22/18 01:18; Admin Dose 4 PUFF; Start 08/19/18 at 17:00 Ipratropium [place] (Atrovent Hfa) 4 puff Q4 INH Last administered on 08/22/18 01:18; Admin Dose 4 PUFF; Start 08/19/18 at 17:00 Lactated Ringer's 1,000 ml @ 50 mls/hr Q20H IV Last administered on 08/21/18at 12:57; Admin Dose 50 MLS/HR; Start 08/19/18 at 14:00 Phenylephrine HCl 40 mg/Dextrose 250 ml @ 37.5 mls/hr TITRATE IV Last admini stered on 08/22/18at 00:09; Admin Dose 26.25 MLS/HR; Start 08/19/18 at 14:00 Insulin Aspart (Novolog Insulin Pen) NOVOLOG *MILD* ALGORI... Q4 SC Last administered on 08/20/18at 13:37; Admin Dose 1 UNIT; Start 08/19/18 at 22:00 Miscellaneous Information 1 ea NOTE XX ; Start 08/19/18 at 21:30 Glucose (Glutose) 15 gm Q15M PRN PO DECREASED GLUCOSE; Start 08/19/18 at 21:30 Glucose (Glutose) 22.5 gm Q15M PRN PO DECREASED GLUCOSE; Start 08/19/18 at 21:30 Dextrose (D50w Syringe) 25 ml Q15M PRN IV DECREASED GLUCOSE; Start 08/19/18 at 21:30 Dextrose (D50w Syringe) 50 ml Q15M PRN IV DECREASED GLUCOSE; Start 08/19/18 at 21:30 Glucagon (Glucagen) 1 mg Q15M PRN IM DECREASED GLUCOSE; Start 08/19/18 at 21:30 Glucose (Glutose) 15 gm Q15M PRN BUCCAL DECREASED GLUCOSE; Start 08/19/18 at 21:30 Methenamine (Hiprex) 1 gm BID GTB Last administered on 08/21/18at 21:09; Admin Dose 1 GM; Start 08/20/18 at 21:00 [address]renat Multivit/ Lane/Iron/Folic Ac () 1 tab DAILY GTB Last administered on 08/21/18at 08:10; Admin Dose 1 TAB; Start 08/21/18 at 09:00 Zinc Sulfate (Zinc Sulfate) 220 mg DAILY GTB Last administered on 08/21/18at 08:09; Admin Dose 220 MG; Start 08/21/18 at 09:00 Finasteride (Proscar) 5 mg DAILY GTB Last administered on 08/21/18at 08:09; Admin Dose 5 MG; Start 08/20/18 at 10:00 Morphine Sulfate (morphine) 1 mg Q4H PRN IV SEVERE PAIN LEVEL 7-10; Start 08/21/18 at 12:00 Cefepime HCl 50 ml @ 100 mls/hr Q12 IVPB Last administered on 08/22/18at 00:09; Admin Dose 100 MLS/HR; Start 08/21/18 at 14:27 VIRY CASTILLO August 22, 2018 04:15
[2018-08-22] MEDS: METOPROLOL 25 MG TAB PO SCH ×2 (08:00→20:18)
[2018-08-22] MEDS: BALSAM PERU/CASTOR OIL 60 GM TUBE TOP SCH ×2 (08:45→20:22)
[2018-08-22] MEDS: PRENATAL VITAMIN GTB SCH (08:45)
[2018-08-22] MEDS: LACTATED RINGER'S 1,000 ML IV SCH (08:45)
[2018-08-22] MEDS: ZINC SULFATE 220 MG CAP GTB SCH (08:45)
[2018-08-22] MEDS: ASCORBIC ACID 500 MG TAB GTB SCH ×2 (08:45→20:17)
[2018-08-22] MEDS: FISH OIL 1,000 MG CAP PO SCH ×2 (08:45→20:17)
[2018-08-22] MEDS: METHENAMINE 1 GM TAB GTB SCH ×2 (08:45→20:17)
[2018-08-22] MEDS: FINASTERIDE 5 MG TAB GTB SCH (08:45)
[2018-08-22] MEDS ORDERED: ACETAMINOPHEN 1000MG/100ML IV 100 ML IVPB SCH (09:30)
--- NOTE | 2018-08-22 10:02 | CONS ---
Assessment/Plan Assessment/Plan Assessment/Plan (Daily) 1. acute prerenal azotemia 2. Septic shock 3. right sided pneumothorax s/p R chest tube placement 4. acute hypoxemic respiratory failure intubated on ventilator 5. Metastatic prostate CA 6. Dysphagia s/p G tube placement Plan : s/p IV abx zosyn and vancomycin, Currently on IV abx cefepime, Renally dose all abx and monitor electrolytes IVF LR at 50 cc/hr ,BUN/Cr 39/0.5 Chest tube in case Pulmonary has been following for ventilator care ID following Consultation Date/Type/Reason Admit Date/Time Aug 16, 2018 at 14:10 Initial Consult Date 08/21/18 Type of Consult NEPHROLOGY Requesting Provider: SANIA WHITTINGTON MD Date/Time of Note DATE: 08/22/18 TIME: 10:01 Exam/Review of Systems Exam Vitals Vital Signs Date Temp Pulse Resp B/P (MAP) Pulse Ox O2 O2 Flow FiO2 Time Delivery Rate 08/22/18 102 08:00 08/22/18 24 116/62 99 07:45 (80) 08/22/18 Mechanical 07:00 Ventilator 08/22/18 40 05:11 08/22/18 99.1 04:00 08/19/18 4.0 08:00 Intake and Output 08/21/18 08/21/18 08/22/18 1414:59 22:59 06:59 IntakeIntake Total 903.75 ml 967.50 ml 1200 ml OutputOutput Total 335 ml 415 ml 470 ml BalanceBalance 568.75 ml 552.50 ml 730 ml Exam Constitutional: non-verbal, frail, intubated on ventilator Respiratory: crackles/rales, diminished breath sounds Cardiovascular: other (tachycardic and regular) Gastrointestinal: soft, non-tender, other (+feeding tube) Genitourinary - Male: other (FC) Musculoskeletal: No swelling Extremities: pitting pedal edema Neurological: unresponsive Skin: rash or lesions (ecchymoses of b/l UE) Results Result Diagram: 08/22/18 0400 08/22/18 0330 Results 24hrs Laboratory Tests Test 08/21/18 11:30 08/21/18 12:11 08/21/18 12:12 08/21/18 12:54 Blood Gas Blood arterial Specimen Source Arterial Blood 08/21/2018 11:35 Date Drawn :58 AM Arterial Blood 7.298 *L pH (Temp corrected) Arterial Blood 50.5 H pCO2 (Temp correct) Arterial Blood 83.3 pO2 (Temp corrected) Arterial Blood 24.2 HCO3 Arterial Blood -2.7 Base Excess Arterial Blood 94.7 L Oxygen Saturatio n Jarod Test ACCEPTAB Arterial Blood Right Radial Gas Puncture Site Arterial 0.6 Blood Carboxyhem oglobin Arterial Blood 0.4 Methemoglobin Blood Gas A-a O2 71.3 H Differential Oxyhemoglobin 93.8 Percent Blood Gas 37.0 Temperature Blood Gas Actual 24 Respiration Rate Blood Gas VENT - CPAP Modality FiO2 30.0 Blood Gas Low 5.0 PEEP Setting Blood Gas 10 Pressure Support Blood Gas EDVIN CANALES Critical Value Read Back Blood Gas TM Notified Whom Blood Gas 08/21/2018 11:54 Notified Time :06 AM Lactate 5980 H Dehydrogenase Platelet Count 106 L Prothrombin Time 17.1 H Prothrombin Time 1.3 Ratio INR 1.38 International Normalized Ratio Activated 42.2 H Partial Thrombop last Time Thrombin Time 17.1 Fibrinogen 867.0 #H Plasma Fibrin >10 and <40 H Degradation Prod ucts D-Dimer 8503.11 H D-Dimer Comment Random Cortisol 37.1 Bedside Glucose 112 Test 08/21/18 16:11 08/21/18 21:02 08/22/18 00:12 08/22/18 03:30 Bedside Glucose 124 114 113 Sodium Level 136 Potassium Level 3.7 Chloride Level 109 Carbon Dioxide 24 Level Anion Gap 3 L Blood Urea 39 H Nitrogen Creatinine 0.50 L Est Glomerular Filtrat Rate mL/min Glucose Level 100 Calcium Level 7.9 L Phosphorus Level 1.8 L Magnesium Level 2.0 Total Bilirubin 0.5 Direct Bilirubin 0.00 Indirect 0.5 Bilirubin Aspartate Amino 239 H Transf (AST/SGOT ) Alanine 23 Aminotransferase (ALT/SGPT) Alkaline 406 H Phosphatase Total Protein 4.7 L Albumin 2.2 L Globulin 2.50 Albumin/Globulin 0.88 Ratio Random Cortisol 22.6 Test 08/22/18 04:00 08/22/18 04:18 08/22/18 07:00 08/22/18 08:47 White Blood 4.4 L Count Red Blood Count 3.60 L Hemoglobin 10.1 L Hematocrit 30.3 L Mean Corpuscular 84.2 Volume Mean Corpuscular 28.1 L Hemoglobin Mean Corpuscular 33.3 Hemoglobin Glenny nt Red Cell 17.5 H Distribution Width Platelet Count 72 L Mean Platelet Volume Immature 5.700 H Granulocytes % Neutrophils % Segmented 37 L Neutrophils % (Manual) Band Neutrophils 22 H % (Manual) Lymphocytes % Lymphocytes % 27 (Manual) Reactive 1 H Lymphocytes % (Manual) Monocytes % Monocytes % 2 (Manual) Eosinophils % Basophils % Metamyelocytes % 6 H (manual) Myelocytes % 2 H (Manual) Promyelocytes % 3 H (Manual) Nucleated Red 13 H Blood Cells % Immature 0.250 H Granulocytes # Neutrophils # Neutrophils # 1.7 (Manual) Band Neutrophils 0.9 H # Lymphocytes 1.1 (Manual) Lymphocytes # Reactive 0.0 Lymphocytes # Monocytes # Monocytes # 0.0 L (Manual) Eosinophils # Basophils # Metamyelocytes # 0.2 H Myelocytes # 0.0 Promyelocytes # 0.1 H Nucleated Red Blood Cells # Platelet DECREASED Estimate Giant Platelets 2 H Polychromasia 2+ Poikilocytosis 3+ Anisocytosis 2+ Macrocytosis 1+ Bedside Glucose 113 120 Blood Gas Blood arterial Specimen Source Arterial Blood 08/22/2018 7:02:1 Date Drawn 1 AM Arterial Blood 7.474 H pH (Temp corrected) Arterial Blood 28.9 L pCO2 (Temp correct) Arterial Blood 131.3 H pO2 (Temp corrected) Arterial Blood 20.8 L HCO3 Arterial Blood -1.9 Base Excess Arterial Blood 98.4 Oxygen Saturatio n Jarod Test ACCEPTAB Arterial Blood Right Radial Gas Puncture Site Arterial 0.3 Blood Carboxyhem oglobin Arterial Blood 0.4 Methemoglobin Blood Gas A-a O2 120.7 H Differential Oxyhemoglobin 97.7 Percent Blood Gas 37.0 Temperature Blood Gas 16.0 Respiration Rate Blood Gas Actual 23 Respiration Rate Blood Gas VENT - AC Modality FiO2 40.0 Blood Gas Tidal 450.0 Volume Blood Gas Low 5.0 PEEP Setting Blood Gas TM Notified Whom Blood Gas 08/22/2018 7:24:5 Notified Time 5 AM Medications Medication Current Medications Miscellaneous Information (Pending Santyl Order For Wound Care) This patient tabares... PRN PRN XX WOUND CARE; Start 08/16/18 at 20:00 Acetaminophen (Tylenol Tab) 500 mg Q4H PRN PO MILD PAIN(1-3)OR ELEVATED TEMP Last administered on 08/21/18 21:07; Admin Dose 500 MG; Start 08/16/18 at 20:00 Ascorbic Acid (Vitamin C) 500 mg BID GTB Last administered on 08/22/18 08:45; Admin Dose 500 MG; Start 08/16/18 at 21:00 Bicalutamide (Casodex) 50 mg DAILY PO ; Start 08/17/18 at 09:00; Status Hold Metoprolol Tartrate (Lopressor) 25 mg BID PO Last administered on 08/19/18at 09:46; Admin Dose 25 MG; Start 08/17/18 at 21:00 Fish Oil (Fish Oil) 1,000 mg BID PO Last administered on 08/22/18 08:45; Admin Dose 1,000 MG; Start 08/18/18 at 14:00 Norepinephrine 250 ml @ 1.875 mls/ hr TITRATE IV Last administered on 08/19/18at 11:59; Admin Dose 1.875 MLS/HR; Start 08/19/18 at 11:00 Albuterol (Ventolin Hfa) 4 puff Q4H RESP THERAPY INH Last administered on 08/22/18 08:36; Admin Dose 4 PUFF; Start 08/19/18 at 17:00 Ipratropium [place] (Atrovent Hfa) 4 puff Q4 INH Last administered on 08/22/18 08:36; Admin Dose 4 PUFF; Start 08/19/18 at 17:00 Lactated Ringer's 1,000 ml @ 50 mls/hr Q20H IV Last administered on 08/22/18 08:45; Admin Dose 50 MLS/HR; Start 08/19/18 at 14:00 Phenylephrine HCl 40 mg/Dextrose 250 ml @ 37.5 mls/hr TITRATE IV Last administered on 08/22/18 00:09; Admin Dose 26.25 MLS/HR; Start 08/19/18 at 14:00 Insulin Aspart (Novolog Insulin Pen) NOVOLOG *MILD* ALGORI... Q4 SC Last administered on 08/20/18 13:37; Admin Dose 1 UNIT; Start 08/19/18 at 22:00 Miscellaneous Information 1 ea NOTE XX ; Start 08/19/18 at 21:30 Glucose (Glutose) 15 gm Q15M PRN PO DECREASED GLUCOSE; Start 08/19/18 at 21:30 Glucose (Glutose) 22.5 gm Q15M PRN PO DECREASED GLUCOSE; Start 08/19/18 at 21:30 Dextrose (D50w Syringe) 25 ml Q15M PRN IV DECREASED GLUCOSE; Start 08/19/18 at 21:30 Dextrose (D50w Syringe) 50 ml Q15M PRN IV DECREASED GLUCOSE; Start 08/19/18 at 21:30 Glucagon (Glucagen) 1 mg Q15M PRN IM DECREASED GLUCOSE; Start 08/19/18 at 21:30 Glucose (Glutose) 15 gm Q15M PRN BUCCAL DECREASED GLUCOSE; Start 08/19/18 at 21:30 Methenamine (Hiprex) 1 gm BID GTB Last administered on 08/22/18 08:45; Admin Dose 1 GM; Start 08/20/18 at 21:00 Prenat Multivit/ [place]/Iron/Folic Ac () 1 tab DAILY GTB Last administered on 08/22/18 08:45; Admin Dose 1 TAB; Start 08/21/18 at 09:00 Zinc Sulfate (Zinc Sulfate) 220 mg DAILY GTB Last administered on 08/22/18 08:45; Admin Dose 220 MG; Start 08/21/18 at 09:00 Finasteride (Proscar) 5 mg DAILY GTB Last administered on 08/22/18 08:45; Admin Dose 5 MG; Start 08/20/18 at 10:00 Morphine Sulfate (morphine) 1 mg Q4H PRN IV SEVERE PAIN LEVEL 7-10; Start 08/21/18 at 12:00 Cefepime HCl 50 ml @ 100 mls/hr Q12 IVPB Last administered on 08/22/18 08:45; Admin Dose 100 MLS/HR; Start 08/21/18 at 14:27 Acetaminophen 100 ml @ 400 mls/hr Q6H IVPB Last administered on 08/22/18 09:18; Admin Dose 400 MLS/HR; Start 08/22/18 at 09:30; Stop 08/23/18 at 09:29 CELIA KUMAR MD August 22, 2018 10:01
--- NOTE | 2018-08-22 11:35 | CONS ---
Consult Date/Type/Reason Admit Date/Time Aug 16, 2018 at 14:10 Initial Consult Date 08/17/18 Type of Consult Pulmonary Requesting Provider: SANIA WHITTINGTON MD Date/Time of Note DATE: 08/22/18 TIME: 11:31 Subjective Remains largely somnolent on mechanical ventilation decreased vasopressor requirements Objective Vital Signs Date Temp Pulse Resp B/P (MAP) Pulse Ox O2 O2 Flow FiO2 Time Delivery Rate 08/22/18 102 08:00 08/22/18 24 116/62 99 07:45 (80) 08/22/18 Mechanical 07:00 Ventilator 08/22/18 40 05:11 08/22/18 99.1 04:00 08/19/18 4.0 08:00 Intake and Output 08/21/18 08/21/18 08/22/18 1414:59 22:59 06:59 IntakeIntake Total 903.75 ml 967.50 ml 1200 ml OutputOutput Total 335 ml 415 ml 470 ml BalanceBalance 568.75 ml 552.50 ml 730 ml Exam GENERAL: Frail elderly gentleman with mechanical ventilation. VITAL SIGNS: per chart NECK: Supple. No JVD or lymphadenopathy. CARDIAC EXAM: S1, S2. No added sounds or murmurs. CHEST: Diminished air entry bilaterally chest tube right lung. ABDOMEN: Soft, nontender. No guarding or rebound. EXTREMITIES: No cyanosis, clubbing or edema. NEUROLOGIC: Generalized weakness. Vent Setting Ventilator Support Mode: AC Fraction of Inspired Oxygen pe: 40 Positive End Expiratory Pressu: 5.0 Results/Medications Result Diagram: 08/22/18 0400 08/22/18 0330 Results 24 hrs Laboratory Tests Test 08/21/18 12:11 08/21/18 12:12 08/21/18 12:54 08/21/18 16:11 Lactate 5980 H Dehydrogenase Platelet Count 106 L Prothrombin Time 17.1 H Prothrombin Time 1.3 Ratio INR 1.38 International Normalized Ratio Activated 42.2 H Partial Thrombop last Time Thrombin Time 17.1 Fibrinogen 867.0 #H Plasma Fibrin >10 and <40 H Degradation Prod ucts D-Dimer 8503.11 H D-Dimer Comment Random Cortisol 37.1 Bedside Glucose 112 124 Test 08/21/18 21:02 08/22/18 00:12 08/22/18 03:30 08/22/18 04:00 Bedside Glucose 114 113 Sodium Level 136 Potassium Level 3.7 Chloride Level 109 Carbon Dioxide 24 Level Anion Gap 3 L Blood Urea 39 H Nitrogen Creatinine 0.50 L Est Glomerular Filtrat Rate mL/min Glucose Level 100 Calcium Level 7.9 L Phosphorus Level 1.8 L Magnesium Level 2.0 Total Bilirubin 0.5 Direct Bilirubin 0.00 Indirect 0.5 Bilirubin Aspartate Amino 239 H Transf (AST/SGOT ) Alanine 23 Aminotransferase (ALT/SGPT) Alkaline 406 H Phosphatase Total Protein 4.7 L Albumin 2.2 L Globulin 2.50 Albumin/Globulin 0.88 Ratio Random Cortisol 22.6 White Blood 4.4 L Count Red Blood Count 3.60 L Hemoglobin 10.1 L Hematocrit 30.3 L Mean Corpuscular 84.2 Volume Mean Corpuscular 28.1 L Hemoglobin Mean Corpuscular 33.3 Hemoglobin Glenny nt Red Cell 17.5 H Distribution Width Platelet Count 72 L Mean Platelet Volume Immature 5.700 H Granulocytes % Neutrophils % Segmented 37 L Neutrophils % (Manual) Band Neutrophils 22 H % (Manual) Lymphocytes % Lymphocytes % 27 (Manual) Reactive 1 H Lymphocytes % (Manual) Monocytes % Monocytes % 2 (Manual) Eosinophils % Basophils % Metamyelocytes % 6 H (manual) Myelocytes % 2 H (Manual) Promyelocytes % 3 H (Manual) Nucleated Red 13 H Blood Cells % Immature 0.250 H Granulocytes # Neutrophils # Neutrophils # 1.7 (Manual) Band Neutrophils 0.9 H # Lymphocytes 1.1 (Manual) Lymphocytes # Reactive 0.0 Lymphocytes # Monocytes # Monocytes # 0.0 L (Manual) Eosinophils # Basophils # Metamyelocytes # 0.2 H Myelocytes # 0.0 Promyelocytes # 0.1 H Nucleated Red Blood Cells # Platelet DECREASED Estimate Giant Platelets 2 H Polychromasia 2+ Poikilocytosis 3+ Anisocytosis 2+ Macrocytosis 1+ Test 08/22/18 04:18 08/22/18 07:00 08/22/18 08:47 08/22/18 11:15 Bedside Glucose 113 120 Blood Gas Blood arterial Blood arterial Specimen Source Arterial Blood 08/22/2018 7:02:1 08/22/2018 11:10: Date Drawn 1 AM 44 AM Arterial Blood 7.474 H 7.380 pH (Temp corrected) Arterial Blood 28.9 L 38.2 pCO2 (Temp correct) Arterial Blood 131.3 H 91.8 H pO2 (Temp corrected) Arterial Blood 20.8 L 22.1 HCO3 Arterial Blood -1.9 -2.7 Base Excess Arterial Blood 98.4 96.4 Oxygen Saturatio n Jarod Test ACCEPTAB V Arterial Blood Right Radial Right Radial Gas Puncture Site Arterial 0.3 0.3 Blood Carboxyhem oglobin Arterial Blood 0.4 0.5 Methemoglobin Blood Gas A-a O2 120.7 H 149.5 H Differential Oxyhemoglobin 97.7 95.6 Percent Blood Gas 37.0 37.0 Temperature Blood Gas 16.0 Respiration Rate Blood Gas Actual 23 24 Respiration Rate Blood Gas VENT - AC VENT - CPAP Modality FiO2 40.0 40.0 Blood Gas Tidal 450.0 Volume Blood Gas Low 5.0 5.0 PEEP Setting Blood Gas TM TM Notified Whom Blood Gas 08/22/2018 7:24:5 08/22/2018 11:16: Notified Time 5 AM 37 AM Blood Gas 10 Pressure Support Medications Current Medications Miscellaneous Information [facility] This patient tabares... PRN PRN XX WOUND CARE; Start 08/16/18 at 20:00 Acetaminophen (Tylenol Tab) 500 mg Q4H PRN PO MILD PAIN(1-3)OR ELEVATED TEMP Last administered on 08/21/18at 21:07; Admin Dose 500 MG; Start 08/16/18 at 20:00 Ascorbic Acid (Vitamin C) 500 mg BID GTB Last administered on 08/22/18 08:45; Admin Dose 500 MG; Start 08/16/18 at 21:00 Bicalutamide (Casodex) 50 mg DAILY PO ; Start 08/17/18 at 09:00; Status Hold Metoprolol Tartrate (Lopressor) 25 mg BID PO Last administered on 08/19/18at 09:46; Admin Dose 25 MG; Start 08/17/18 at 21:00 Fish Oil (Fish Oil) 1,000 mg BID PO Last administered on 08/22/18at 08:45; Admin Dose 1,000 MG; Start 08/18/18 at 14:00 Norepinephrine 250 ml @ 1.875 mls/ hr TITRATE IV Last administered on 08/19/18at 11:59; Admin Dose 1.875 MLS/HR; Start 08/19/18 at 11:00 Albuterol (Ventolin Hfa) 4 puff Q4H RESP THERAPY INH Last administered on 08/22/18 08:36; Admin Dose 4 PUFF; Start 08/19/18 at 17:00 Ipratropium [place] (Atrovent Hfa) 4 puff Q4 INH Last administered on 08/22/18 08:36; Admin Dose 4 PUFF; Start 08/19/18 at 17:00 Lactated Ringer's 1,000 ml @ 50 mls/hr Q20H IV Last administered on 08/22/18 08:45; Admin Dose 50 MLS/HR; Start 08/19/18 at 14:00 Phenylephrine HCl 40 mg/Dextrose 250 ml @ 37.5 mls/hr TITRATE IV Last administered on 08/22/18 00:09; Admin Dose 26.25 MLS/HR; Start 08/19/18 at 14:00 Insulin Aspart (Novolog Insulin Pen) NOVOLOG *MILD* ALGORI... Q4 SC Last administered on 08/20/18at 13:37; Admin Dose 1 UNIT; Start 08/19/18 at 22:00 Miscellaneous Information 1 ea NOTE XX ; Start 08/19/18 at 21:30 Glucose (Glutose) 15 gm Q15M PRN PO DECREASED GLUCOSE; Start 08/19/18 at 21:30 Glucose (Glutose) 22.5 gm Q15M PRN PO DECREASED GLUCOSE; Start 08/19/18 at 21:30 Dextrose (D50w Syringe) 25 ml Q15M PRN IV DECREASED GLUCOSE; Start 08/19/18 at 21:30 Dextrose (D50w Syringe) 50 ml Q15M PRN IV DECREASED GLUCOSE; Start 08/19/18 at 21:30 Glucagon (Glucagen) 1 mg Q15M PRN IM DECREASED GLUCOSE; Start 08/19/18 at 21:30 Glucose (Glutose) 15 gm Q15M PRN BUCCAL DECREASED GLUCOSE; Start 08/19/18 at 21:30 Methenamine (Hiprex) 1 gm BID GTB Last administered on 08/22/18 08:45; Admin Dose 1 GM; Start 08/20/18 at 21:00 Prenat Multivit/ Pulverizer Mill Operator/Iron/Folic Ac () 1 tab DAILY GTB Last administered on 5/1/19at 08:45; Admin Dose 1 TAB; Start 08/21/18 at 09:00 Zinc Sulfate (Zinc Sulfate) 220 mg DAILY GTB Last administered on 08/22/18 08:45; Admin Dose 220 MG; Start 08/21/18 at 09:00 Finasteride (Proscar) 5 mg DAILY GTB Last administered on 08/22/18at 08:45; Admin Dose 5 MG; Start 08/20/18 at 10:00 Morphine Sulfate (morphine) 1 mg Q4H PRN IV SEVERE PAIN LEVEL 7-10; Start 08/21/18 at 12:00 Cefepime HCl 50 ml @ 100 mls/hr Q12 IVPB Last administered on 08/22/18at 08:45; Admin Dose 100 MLS/HR; Start 08/21/18 at 14:27 Acetaminophen 65 ml @ 400 mls/hr Q6H IVPB ; Start 08/22/18 at 15:30; Stop 08/23/18 at 15:29 Assessment/Plan Hospital Course (Demo Recall) IMP: 1. Acute hypoxemic respiratory failure likely secondary to aspiration complicated by pneumothorax following thoracentesis of a large right pleural effusion. 2. Advanced dementia 3. Severe cachexia status post recent G-tube 4. Metastatic prostate cancer 5. Polymicrobial sepsis with pseudomonal UTI and enterococcal pneumonia 6. Septic shock secondary to above 7. Sinus tachycardia likely secondary to pain and discomfort and underlying infection Plan 1. CPAP trial as tolerated Patient was hypercapnic yesterday unable to wean 2. Decrease vasopressors titrate to keep map greater than 65, random cortisol not consistent with adrenal insufficiency 3. Tube feeding as tolerated 4. Wound care 5. DVT and GI prophylaxis 6. ID recommendations continue current antibiotics Long discussion with family wish to keep current CODE STATUS Critical care time 40 minutes. LUIZ RAMOS MD, [facility] August 22, 2018 11:35
--- NOTE | 2018-08-22 11:54 | CONS ---
Assessment/Plan Assessment/Plan Hospital Course (Demo Recall) IMPRESSION: 1. Abnormal electrocardiogram, assess for acute coronary syndrome.-neg trop x 2. NL EF by echo this admit 2. Cardiac arrhythmia at this time, most consistent with sinus arrhythmia.-mild tachycardia, sinus arrythmia. NL TSH- now with increased S tachycardia today-? due to pain/resp distress/anxiety/hypotension 3. Hypotension-now on neosynephrine 4. Dysphagia, status post PEG placement today. 5. Failure to thrive. 6. History of prostate carcinoma. 7. History of aplastic anemia-currently improved 8. Hypernatremia. 10. Pancytopenia-currently overall improved Hgb 11. Resp failure s/p intubation 12. Pleural effusion s/p thoracentesis c/b PTX with CT now 14. PNA Recc: -Now in ICU -serial ecg's -follow Hgb closely and transfuse as necessary -Continue avodart -Follow CT output -Continue abx's and f/u cx data -wean bria as tolerated -Follow volume status -Albumin infusion x 2 -Follow HR/BP closely Consultation Date/Type/Reason Admit Date/Time Aug 16, 2018 at 14:10 Initial Consult Date 08/17/18 Type of Consult Cardiology Reason for Consultation hypotension/tachycardia Requesting Provider: SANIA WHITTINGTON MD Date/Time of Note DATE: 08/22/18 TIME: 11:49 Exam/Review of Systems Vital Signs Vitals Vital Signs Date Temp Pulse Resp B/P (MAP) Pulse Ox O2 O2 Flow FiO2 Time Delivery Rate 08/22/18 102 08:00 08/22/18 24 116/62 99 07:45 (80) 08/22/18 Mechanical 07:00 Ventilator 08/22/18 40 05:11 08/22/18 99.1 04:00 08/19/18 4.0 08:00 Intake and Output 08/21/18 08/21/18 08/22/18 1515:00 23:00 07:00 IntakeIntake Total 907.50 ml 1001.25 ml 1060 ml OutputOutput Total 325 ml 425 ml 430 ml BalanceBalance 582.50 ml 576.25 ml 630 ml Exam Exam Review of Systems: CONSTITUTIONAL: No fevers, chills. PULMONARY: intubated CARDIOVASCULAR: No obvious chest pain/palpitations GASTROINTESTINAL: No nausea/vomiting. GENITOURINARY: No hematuria/dysuria. MUSCULOSKELETAL: No obvious myagias/arthalgias. PSYCHIATRIC: no documented depression. NEUROLOGIC: No weakness Constitutional: alert Psych: no complaints Head: normocephalic ENMT: mucosa pink and moist Neck: supple, jvd (9 cm water) Respiratory: diminished breath sounds (at bases/B) Cardiovascular: other (tachycardic, regular rhythm) Gastrointestinal: soft, non-tender Musculoskeletal: muscle weakness (generalized) Extremities: pitting pedal edema (bilateral/anasarca) Labs Result Diagram: 08/22/18 0400 08/22/18 0330 Results 24hrs Laboratory Tests Test 08/21/18 12:11 08/21/18 12:12 08/21/18 12:54 08/21/18 16:11 Lactate 5980 H Dehydrogenase Platelet Count 106 L Prothrombin Time 17.1 H Prothrombin Time 1.3 Ratio INR 1.38 International Normalized Ratio Activated 42.2 H Partial Thrombop last Time Thrombin Time 17.1 Fibrinogen 867.0 #H Plasma Fibrin >10 and <40 H Degradation Prod ucts D-Dimer 8503.11 H D-Dimer Comment Random Cortisol 37.1 Bedside Glucose 112 124 Test 08/21/18 21:02 08/22/18 00:12 08/22/18 03:30 08/22/18 04:00 Bedside Glucose 114 113 Sodium Level 136 Potassium Level 3.7 Chloride Level 109 Carbon Dioxide 24 Level Anion Gap 3 L Blood Urea 39 H Nitrogen Creatinine 0.50 L Est Glomerular Filtrat Rate mL/min Glucose Level 100 Calcium Level 7.9 L Phosphorus Level 1.8 L Magnesium Level 2.0 Total Bilirubin 0.5 Direct Bilirubin 0.00 Indirect 0.5 Bilirubin Aspartate Amino 239 H Transf (AST/SGOT ) Alanine 23 Aminotransferase (ALT/SGPT) Alkaline 406 H Phosphatase Total Protein 4.7 L Albumin 2.2 L Globulin 2.50 Albumin/Globulin 0.88 Ratio Random Cortisol 22.6 White Blood 4.4 L Count Red Blood Count 3.60 L Hemoglobin 10.1 L Hematocrit 30.3 L Mean Corpuscular 84.2 Volume Mean Corpuscular 28.1 L Hemoglobin Mean Corpuscular 33.3 Hemoglobin Glenny nt Red Cell 17.5 H Distribution Width Platelet Count 72 L Mean Platelet Volume Immature 5.700 H Granulocytes % Neutrophils % Segmented 37 L Neutrophils % (Manual) Band Neutrophils 22 H % (Manual) Lymphocytes % Lymphocytes % 27 (Manual) Reactive 1 H Lymphocytes % (Manual) Monocytes % Monocytes % 2 (Manual) Eosinophils % Basophils % Metamyelocytes % 6 H (manual) Myelocytes % 2 H (Manual) Promyelocytes % 3 H (Manual) Nucleated Red 13 H Blood Cells % Immature 0.250 H Granulocytes # Neutrophils # Neutrophils # 1.7 (Manual) Band Neutrophils 0.9 H # Lymphocytes 1.1 (Manual) Lymphocytes # Reactive 0.0 Lymphocytes # Monocytes # Monocytes # 0.0 L (Manual) Eosinophils # Basophils # Metamyelocytes # 0.2 H Myelocytes # 0.0 Promyelocytes # 0.1 H Nucleated Red Blood Cells # Platelet DECREASED Estimate Giant Platelets 2 H Polychromasia 2+ Poikilocytosis 3+ Anisocytosis 2+ Macrocytosis 1+ Test 08/22/18 04:18 08/22/18 07:00 08/22/18 08:47 08/22/18 11:15 Bedside Glucose 113 120 Blood Gas Blood arterial Blood arterial Specimen Source Arterial Blood 08/22/2018 7:02:1 08/22/2018 11:10: Date Drawn 1 AM 44 AM Arterial Blood 7.474 H 7.380 pH (Temp corrected) Arterial Blood 28.9 L 38.2 pCO2 (Temp correct) Arterial Blood 131.3 H 91.8 H pO2 (Temp corrected) Arterial Blood 20.8 L 22.1 HCO3 Arterial Blood -1.9 -2.7 Base Excess Arterial Blood 98.4 96.4 Oxygen Saturatio n Jarod Test ACCEPTAB V Arterial Blood Right Radial Right Radial Gas Puncture Site Arterial 0.3 0.3 Blood Carboxyhem oglobin Arterial Blood 0.4 0.5 Methemoglobin Blood Gas A-a O2 120.7 H 149.5 H Differential Oxyhemoglobin 97.7 95.6 Percent Blood Gas 37.0 37.0 Temperature Blood Gas 16.0 Respiration Rate Blood Gas Actual 23 24 Respiration Rate Blood Gas VENT - AC VENT - CPAP Modality FiO2 40.0 40.0 Blood Gas Tidal 450.0 Volume Blood Gas Low 5.0 5.0 PEEP Setting Blood Gas TM TM Notified Whom Blood Gas 08/22/2018 7:24:5 08/22/2018 11:16: Notified Time 5 AM 37 AM Blood Gas 10 Pressure Support Medications Medications Current Medications Miscellaneous Information (Pending [facility] Order For Wound Care) This patient tabares... PRN PRN XX WOUND CARE; Start 08/16/18 at 20:00 Acetaminophen (Tylenol Tab) 500 mg Q4H PRN PO MILD PAIN(1-3)OR ELEVATED TEMP Last administered on 08/21/18 21:07; Admin Dose 500 MG; Start 08/16/18 at 20:00 Ascorbic Acid (Vitamin C) 500 mg BID GTB Last administered on 08/22/18 08:45; Admin Dose 500 MG; Start 08/16/18 at 21:00 Bicalutamide (Casodex) 50 mg DAILY PO ; Start 08/17/18 at 09:00; Status Hold Metoprolol Tartrate (Lopressor) 25 mg BID PO Last administered on 08/19/18 09:46; Admin Dose 25 MG; Start 08/17/18 at 21:00 Fish Oil (Fish Oil) 1,000 mg BID PO Last administered on 08/22/18 08:45; Admin Dose 1,000 MG; Start 08/18/18 at 14:00 Norepinephrine 250 ml @ 1.875 mls/ hr TITRATE IV Last administered on 08/19/18 11:59; Admin Dose 1.875 MLS/HR; Start 08/19/18 at 11:00 Albuterol (Ventolin Hfa) 4 puff Q4H RESP THERAPY INH Last administered on 08/22/18 08:36; Admin Dose 4 PUFF; Start 08/19/18 at 17:00 Ipratropium [place] (Atrovent Hfa) 4 puff Q4 INH Last administered on 08/22/18 08:36; Admin Dose 4 PUFF; Start 08/19/18 at 17:00 Lactated Ringer's 1,000 ml @ 50 mls/hr Q20H IV Last administered on 08/22/18 08:45; Admin Dose 50 MLS/HR; Start 08/19/18 at 14:00 Phenylephrine HCl 40 mg/Dextrose 250 ml @ 37.5 mls/hr TITRATE IV Last administered on 08/22/18 00:09; Admin Dose 26.25 MLS/HR; Start 08/19/18 at 14:00 Insulin Aspart (Novolog Insulin Pen) NOVOLOG *MILD* ALGORI... Q4 SC Last administered on 08/20/18at 13:37; Admin Dose 1 UNIT; Start 08/19/18 at 22:00 Miscellaneous Information 1 ea NOTE XX ; Start 08/19/18 at 21:30 Glucose (Glutose) 15 gm Q15M PRN PO DECREASED GLUCOSE; Start 08/19/18 at 21:30 Glucose (Glutose) 22.5 gm Q15M PRN PO DECREASED GLUCOSE; Start 08/19/18 at 21:30 Dextrose (D50w Syringe) 25 ml Q15M PRN IV DECREASED GLUCOSE; Start 08/19/18 at 21:30 Dextrose (D50w Syringe) 50 ml Q15M PRN IV DECREASED GLUCOSE; Start 08/19/18 at 21:30 Glucagon (Glucagen) 1 mg Q15M PRN IM DECREASED GLUCOSE; Start 08/19/18 at 21:30 Glucose (Glutose) 15 gm Q15M PRN BUCCAL DECREASED GLUCOSE; Start 08/19/18 at 21:30 Methenamine (Hiprex) 1 gm BID GTB Last administered on 08/22/18at 08:45; Admin Dose 1 GM; Start 08/20/18 at 21:00 Prenat Multivit/ Public Works Technician/Iron/Folic Ac () 1 tab DAILY GTB Last administered on 08/22/18at 08:45; Admin Dose 1 TAB; Start 08/21/18 at 09:00 Zinc Sulfate (Zinc Sulfate) 220 mg DAILY GTB Last administered on 08/22/18at 08:45; Admin Dose 220 MG; Start 08/21/18 at 09:00 Finasteride (Proscar) 5 mg DAILY GTB Last administered on 08/22/18at 08:45; Admin Dose 5 MG; Start 08/20/18 at 10:00 Morphine Sulfate (morphine) 1 mg Q4H PRN IV SEVERE PAIN LEVEL 7-10; Start 08/21/18 at 12:00 Cefepime HCl 50 ml @ 100 mls/hr Q12 IVPB Last administered on 08/22/18at 08:45; Admin Dose 100 MLS/HR; Start 08/21/18 at 14:27 Acetaminophen 65 ml @ 400 mls/hr Q6H IVPB ; Start 08/22/18 at 15:30; Stop 08/23/18 at 15:29 LUIS ALBERTO EDWARD 1, 2019 11:54
--- NOTE | 2018-08-22 12:06 | CONS ---
Assessment/Plan Assessment/Plan Hospital Course (Demo Recall) # sepsis, SIRS, resp - septic shock due to UTI plus SIRS due to possible aspiration, pneumothorax, improved - septic shock due to UTI - SIRS due to possible aspiration pneumonitis - probable aspiration pneumonitis - pneumonia vs. colonization of the airway due to enterobacter - b/l pleural effusion - s/p R sided thoracentesis on 08/17/2018. LDH 499, protein 3.2, WBC 89 with 93.2% monocytes. Cultures of the fluid are negative to date - s/p R PTX - s/p placement of R chest tube on 08/19/2018 - acute hypoxic resp failure - s/p intubation on 08/19/2018 # , heme/onc - UTI due to pseudomonas - prostate CA, with probable mets to the lungs and liver (based on CT result) - h/o recent chemotherapy for his prostate CA frequent UTI prior to admission. Pt was on long-term antibiotic for prophylaxis according to Pt's son - pancytopenia # GI, alimentary - transaminitis, probably a combination of liver metastasis and shock liver - s/p failure to thrive - s/p placement of G-J tube on 08/16/2018 # other conditions - Alzheimer's dementia recommendations - ordered: liver SAKINA - continue cefepime (08/21/2018-) for enterobacter and pseudomonas, at least 5 days - I recommend changing the femoral line to PICC if a central access is needed. If not, I recommend its discontinuation - I discussed the management with Dr. Camacho from [facility], RN Maia and charge nurse Brook - the critical care time I took to care for this Pt today was from 1130 to 1200 Consultation Date/Type/Reason Admit Date/Time Aug 16, 2018 at 14:10 Initial Consult Date 08/21/18 Type of Consult ID Requesting Provider: SANIA WHITTINGTON MD Date/Time of Note DATE: 08/22/18 TIME: 12:00 24 HR Interval Summary Free Text/Dictation neosynephrine is off; Pt is on CPAP trial Subjective hx not possible: pt non-verbal Exam/Review of Systems Exam Vitals Vital Signs Date Temp Pulse Resp B/P (MAP) Pulse Ox O2 O2 Flow FiO2 Time Delivery Rate 08/22/18 102 08:00 08/22/18 24 116/62 99 07:45 (80) 08/22/18 Mechanical 07:00 Ventilator 08/22/18 40 05:11 08/22/18 99.1 04:00 08/19/18 4.0 08:00 Intake and Output 08/21/18 08/21/18 08/22/18 1515:00 23:00 07:00 IntakeIntake Total 907.50 ml 1001.25 ml 1060 ml OutputOutput Total 325 ml 425 ml 430 ml BalanceBalance 582.50 ml 576.25 ml 630 ml Constitutional: non-verbal, frail Psych: confusion, other (demented at baseline) Head: other (bitermporal wasting) Eyes: nl conjunctiva, nl lids, nl sclera ENMT: nl external ears & nose, other (oral mucosa is dry) Neck: other (not swollen) Respiratory: diminished breath sounds, other (increased work of breathing, R chest wall) Cardiovascular: edema, other (tachycardic but regular) Gastrointestinal: soft, other (GT) Genitourinary - Male: other (FC) Extremities: edema, pitting pedal edema Neurological: lethargic Skin: nl turgor; No rash or lesions Results Result Diagram: 08/22/18 0400 08/22/18 0330 Results 24hrs Laboratory Tests Test 08/21/18 12:11 08/21/18 12:12 08/21/18 12:54 08/21/18 16:11 Lactate 5980 H Dehydrogenase Platelet Count 106 L Prothrombin Time 17.1 H Prothrombin Time 1.3 Ratio INR 1.38 International Normalized Ratio Activated 42.2 H Partial Thrombop last Time Thrombin Time 17.1 Fibrinogen 867.0 #H Plasma Fibrin >10 and <40 H Degradation Prod ucts D-Dimer 8503.11 H D-Dimer Comment Random Cortisol 37.1 Bedside Glucose 112 124 Test 08/21/18 21:02 08/22/18 00:12 08/22/18 03:30 08/22/18 04:00 Bedside Glucose 114 113 Sodium Level 136 Potassium Level 3.7 Chloride Level 109 Carbon Dioxide 24 Level Anion Gap 3 L Blood Urea 39 H Nitrogen Creatinine 0.50 L Est Glomerular Filtrat Rate mL/min Glucose Level 100 Calcium Level 7.9 L Phosphorus Level 1.8 L Magnesium Level 2.0 Total Bilirubin 0.5 Direct Bilirubin 0.00 Indirect 0.5 Bilirubin Aspartate Amino 239 H Transf (AST/SGOT ) Alanine 23 Aminotransferase (ALT/SGPT) Alkaline 406 H Phosphatase Total Protein 4.7 L Albumin 2.2 L Globulin 2.50 Albumin/Globulin 0.88 Ratio Random Cortisol 22.6 White Blood 4.4 L Count Red Blood Count 3.60 L Hemoglobin 10.1 L Hematocrit 30.3 L Mean Corpuscular 84.2 Volume Mean Corpuscular 28.1 L Hemoglobin Mean Corpuscular 33.3 Hemoglobin Glenny nt Red Cell 17.5 H Distribution Width Platelet Count 72 L Mean Platelet Volume Immature 5.700 H Granulocytes % Neutrophils % Segmented 37 L Neutrophils % (Manual) Band Neutrophils 22 H % (Manual) Lymphocytes % Lymphocytes % 27 (Manual) Reactive 1 H Lymphocytes % (Manual) Monocytes % Monocytes % 2 (Manual) Eosinophils % Basophils % Metamyelocytes % 6 H (manual) Myelocytes % 2 H (Manual) Promyelocytes % 3 H (Manual) Nucleated Red 13 H Blood Cells % Immature 0.250 H Granulocytes # Neutrophils # Neutrophils # 1.7 (Manual) Band Neutrophils 0.9 H # Lymphocytes 1.1 (Manual) Lymphocytes # Reactive 0.0 Lymphocytes # Monocytes # Monocytes # 0.0 L (Manual) Eosinophils # Basophils # Metamyelocytes # 0.2 H Myelocytes # 0.0 Promyelocytes # 0.1 H Nucleated Red Blood Cells # Platelet DECREASED Estimate Giant Platelets 2 H Polychromasia 2+ Poikilocytosis 3+ Anisocytosis 2+ Macrocytosis 1+ Test 08/22/18 04:18 08/22/18 07:00 08/22/18 08:47 08/22/18 11:15 Bedside Glucose 113 120 Blood Gas Blood arterial Blood arterial Specimen Source Arterial Blood 08/22/2018 7:02:1 08/22/2018 11:10: Date Drawn 1 AM 44 AM Arterial Blood 7.474 H 7.380 pH (Temp corrected) Arterial Blood 28.9 L 38.2 pCO2 (Temp correct) Arterial Blood 131.3 H 91.8 H pO2 (Temp corrected) Arterial Blood 20.8 L 22.1 HCO3 Arterial Blood -1.9 -2.7 Base Excess Arterial Blood 98.4 96.4 Oxygen Saturatio n Jarod Test ACCEPTAB V Arterial Blood Right Radial Right Radial Gas Puncture Site Arterial 0.3 0.3 Blood Carboxyhem oglobin Arterial Blood 0.4 0.5 Methemoglobin Blood Gas A-a O2 120.7 H 149.5 H Differential Oxyhemoglobin 97.7 95.6 Percent Blood Gas 37.0 37.0 Temperature Blood Gas 16.0 Respiration Rate Blood Gas Actual 23 24 Respiration Rate Blood Gas VENT - AC VENT - CPAP Modality FiO2 40.0 40.0 Blood Gas Tidal 450.0 Volume Blood Gas Low 5.0 5.0 PEEP Setting Blood Gas TM TM Notified Whom Blood Gas 08/22/2018 7:24:5 08/22/2018 11:16: Notified Time 5 AM 37 AM Blood Gas 10 Pressure Support Medications Medication Current Medications Miscellaneous Information (Pending Santyl Order For Wound Care) This patient tabares... PRN PRN XX WOUND CARE; Start 08/16/18 at 20:00 Acetaminophen (Tylenol Tab) 500 mg Q4H PRN PO MILD PAIN(1-3)OR ELEVATED TEMP Last administered on 08/21/18 21:07; Admin Dose 500 MG; Start 08/16/18 at 20:00 Ascorbic Acid (Vitamin C) 500 mg BID GTB Last administered on 08/22/18 08:45; Admin Dose 500 MG; Start 08/16/18 at 21:00 Bicalutamide (Casodex) 50 mg DAILY PO ; Start 08/17/18 at 09:00; Status Hold Metoprolol Tartrate (Lopressor) 25 mg BID PO Last administered on 08/19/18 09:46; Admin Dose 25 MG; Start 08/17/18 at 21:00 Fish Oil (Fish Oil) 1,000 mg BID PO Last administered on 08/22/18 08:45; Admin Dose 1,000 MG; Start 08/18/18 at 14:00 Norepinephrine 250 ml @ 1.875 mls/ hr TITRATE IV Last administered on 08/19/18 11:59; Admin Dose 1.875 MLS/HR; Start 08/19/18 at 11:00 Albuterol (Ventolin Hfa) 4 puff Q4H RESP THERAPY INH Last administered on 08/22/18 08:36; Admin Dose 4 PUFF; Start 08/19/18 at 17:00 Ipratropium [place] (Atrovent Hfa) 4 puff Q4 INH Last administered on 08/22/18 08:36; Admin Dose 4 PUFF; Start 08/19/18 at 17:00 Lactated Ringer's 1,000 ml @ 50 mls/hr Q20H IV Last administered on 08/22/18 08:45; Admin Dose 50 MLS/HR; Start 08/19/18 at 14:00 Phenylephrine HCl 40 mg/Dextrose 250 ml @ 37.5 mls/hr TITRATE IV Last administered on 08/22/18 00:09; Admin Dose 26.25 MLS/HR; Start 08/19/18 at 14:00 Insulin Aspart (Novolog Insulin Pen) NOVOLOG *MILD* ALGORI... Q4 SC Last administered on 08/20/18at 13:37; Admin Dose 1 UNIT; Start 08/19/18 at 22:00 Miscellaneous Information 1 ea NOTE XX ; Start 08/19/18 at 21:30 Glucose (Glutose) 15 gm Q15M PRN PO DECREASED GLUCOSE; Start 08/19/18 at 21:30 Glucose (Glutose) 22.5 gm Q15M PRN PO DECREASED GLUCOSE; Start 08/19/18 at 21: 30 Dextrose (D50w Syringe) 25 ml Q15M PRN IV DECREASED GLUCOSE; Start 08/19/18 at 21:30 Dextrose (D50w Syringe) 50 ml Q15M PRN IV DECREASED GLUCOSE; Start 08/19/18 at 21:30 Glucagon (Glucagen) 1 mg Q15M PRN IM DECREASED GLUCOSE; Start 08/19/18 at 21:30 Glucose (Glutose) 15 gm Q15M PRN BUCCAL DECREASED GLUCOSE; Start 08/19/18 at 21:30 Methenamine (Hiprex) 1 gm BID GTB Last administered on 08/22/18at 08:45; Admin Dose 1 GM; Start 08/20/18 at 21:00 Prenat Multivit/ [place]/Iron/Folic Ac () 1 tab DAILY GTB Last administered on 08/22/18 08:45; Admin Dose 1 TAB; Start 08/21/18 at 09:00 Zinc Sulfate (Zinc Sulfate) 220 mg DAILY GTB Last administered on 08/22/18 08:45; Admin Dose 220 MG; Start 08/21/18 at 09:00 Finasteride (Proscar) 5 mg DAILY GTB Last administered on 5/1/19at 08:45; Admin Dose 5 MG; Start 08/20/18 at 10:00 Morphine Sulfate (morphine) 1 mg Q4H PRN IV SEVERE PAIN LEVEL 7-10; Start 08/21/18 at 12:00 Cefepime HCl 50 ml @ 100 mls/hr Q12 IVPB Last administered on 08/22/18at 08:45; Admin Dose 100 MLS/HR; Start 08/21/18 at 14:27 Acetaminophen 65 ml @ 400 mls/hr Q6H IVPB ; Start 08/22/18 at 15:30; Stop 08/23/18 at 15:29 Albumin Human 50 ml @ 100 mls/hr Q8H IV ; Start 08/22/18 at 12:00; Stop 08/22/18 at 20:29; Status UNV JC LAMBERT M.D. August 22, 2018 12:06
[2018-08-22] MEDS: ALBUMIN HUMAN 25% 50 ML IV SCH ×2 (12:31→20:18)
[2018-08-22] MEDS: ACETAMINOPHEN 1000MG/100ML IV 65 ML IVPB SCH ×2 (15:40→21:46)
--- NOTE | 2018-08-22 16:20 | CONS ---
Assessment/Plan Assessment/Plan Assessment/Plan (Daily) Hospital Course (Demo Recall) 87 yo male with prostate cancer with possible bone mets presents with failure to thrive and malnutrition. S/P PEG 08/[address] Rueda Interval hx: Pt still intubated. Tolerating tube feeds at 30cc with no residuals 1. Dysphagia -GJ tube 2. Failure to thrive. 3. Alzheimer disease. 4. 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 Also metastasis in the lung and also in the liver. Patient's PSA is greater than thousand 5. Hypertension. 6. Acute hypoxemic hypercarbic respiratory failure. -s/p chest tube placement and intubation 7. Encephalopathy 8. Anemia with downward trend -retic 2.2, Iron and percent sat wnl, TIBC low, ferritin high 9. S/P thoracentesis with lymphocytic exudate -pending cytology 10. UTI 11. Encephalopathy 12. Pancytopenia secondary to metastatic prostate cancer PLAN: Supportive ICU care FOB pending Ok to increase TF to 60cc/hr, monitor residuals q 6 hours, check phos in am Monitor electrolytes for refeeding syndrome Continue with erythromycin Abdominal binder Continue with IV hydration until pt is at goal Consultation Date/Type/Reason Admit Date/Time Aug 16, 2018 at 14:10 Initial Consult Date 08/21/18 Requesting Provider: SANIA WHITTINGTON MD Date/Time of Note DATE: 08/22/18 TIME: 16:19 24 HR Interval Summary Subjective hx not possible: pt non-verbal, pt critical status Exam/Review of Systems Exam Vitals Vital Signs Date Temp Pulse Resp B/P (MAP) Pulse Ox O2 O2 Flow FiO2 Time Delivery Rate 08/22/18 115 19 107/74 100 15:30 (85) 08/22/18 Mechanical 15:00 Ventilator 08/22/18 40 13:00 08/22/18 97.4 12:00 08/19/18 4.0 08:00 Intake and Output 08/21/18 08/21/18 08/22/18 1515:00 23:00 07:00 IntakeIntake Total 907.50 ml 1001.25 ml 1155 ml OutputOutput Total 325 ml 425 ml 465 ml BalanceBalance 582.50 ml 576.25 ml 690 ml ENMT: intubated Respiratory: diminished breath sounds Cardiovascular: regular rate and rhythm, nl pulses Gastrointestinal: soft, nl liver, spleen, non-tender Musculoskeletal: nl extremities to inspection, nl gait and stance Results Result Diagram: 08/22/18 0400 08/22/18 0330 Results 24hrs Laboratory Tests Test 08/21/18 21:02 08/22/18 00:12 08/22/18 03:30 08/22/18 04:00 Bedside Glucose 114 113 Sodium Level 136 Potassium Level 3.7 Chloride Level 109 Carbon Dioxide 24 Level Anion Gap 3 L Blood Urea 39 H Nitrogen Creatinine 0.50 L Est Glomerular Filtrat Rate mL/min Glucose Level 100 Calcium Level 7.9 L Phosphorus Level 1.8 L Magnesium Level 2.0 Total Bilirubin 0.5 Direct Bilirubin 0.00 Indirect 0.5 Bilirubin Aspartate Amino 239 H Transf (AST/SGOT ) Alanine 23 Aminotransferase (ALT/SGPT) Alkaline 406 H Phosphatase Total Protein 4.7 L Albumin 2.2 L Globulin 2.50 Albumin/Globulin 0.88 Ratio Random Cortisol 22.6 White Blood 4.4 L Count Red Blood Count 3.60 L Hemoglobin 10.1 L Hematocrit 30.3 L Mean Corpuscular 84.2 Volume Mean Corpuscular 28.1 L Hemoglobin Mean Corpuscular 33.3 Hemoglobin Glenny nt Red Cell 17.5 H Distribution Width Platelet Count 72 L Mean Platelet Volume Immature 5.700 H Granulocytes % Neutrophils % Segmented 37 L Neutrophils % (Manual) Band Neutrophils 22 H % (Manual) Lymphocytes % Lymphocytes % 27 (Manual) Reactive 1 H Lymphocytes % (Manual) Monocytes % Monocytes % 2 (Manual) Eosinophils % Basophils % Metamyelocytes % 6 H (manual) Myelocytes % 2 H (Manual) Promyelocytes % 3 H (Manual) Nucleated Red 13 H Blood Cells % Immature 0.250 H Granulocytes # Neutrophils # Neutrophils # 1.7 (Manual) Band Neutrophils 0.9 H # Lymphocytes 1.1 (Manual) Lymphocytes # Reactive 0.0 Lymphocytes # Monocytes # Monocytes # 0.0 L (Manual) Eosinophils # Basophils # Metamyelocytes # 0.2 H Myelocytes # 0.0 Promyelocytes # 0.1 H Nucleated Red Blood Cells # Platelet DECREASED Estimate Giant Platelets 2 H Polychromasia 2+ Poikilocytosis 3+ Anisocytosis 2+ Macrocytosis 1+ Test 08/22/18 04:18 08/22/18 07:00 08/22/18 08:47 08/22/18 11:15 Bedside Glucose 113 120 Blood Gas Blood arterial Blood arterial Specimen Source Arterial Blood 08/22/2018 7:02:11 08/22/2018 11:10: Date Drawn AM 44 AM Arterial Blood 7.474 H 7.380 pH (Temp corrected) Arterial Blood 28.9 L 38.2 pCO2 (Temp correct) Arterial Blood 131.3 H 91.8 H pO2 (Temp corrected) Arterial Blood 20.8 L 22.1 HCO3 Arterial Blood -1.9 -2.7 Base Excess Arterial Blood 98.4 96.4 Oxygen Saturatio n Jarod Test ACCEPTAB V Arterial Blood Right Radial Right Radial Gas Puncture Site Arterial 0.3 0.3 Blood Carboxyhem oglobin Arterial Blood 0.4 0.5 Methemoglobin Blood Gas A-a O2 120.7 H 149.5 H Differential Oxyhemoglobin 97.7 95.6 Percent Blood Gas 37.0 37.0 Temperature Blood Gas 16.0 Respiration Rate Blood Gas Actual 23 24 Respiration Rate Blood Gas VENT - AC VENT - CPAP Modality FiO2 40.0 40.0 Blood Gas Tidal 450.0 Volume Blood Gas Low 5.0 5.0 PEEP Setting Blood Gas TM TM Notified Whom Blood Gas 08/22/2018 7:24:55 08/22/2018 11:16: Notified Time AM 37 AM Blood Gas 10 Pressure Support Test 08/22/18 13:40 Bedside Glucose 84 Medications Medication Current Medications Miscellaneous Information (Pending Santyl Order For Wound Care) This patient tabares... PRN PRN XX WOUND CARE; Start 08/16/18 at 20:00 Acetaminophen (Tylenol Tab) 500 mg Q4H PRN PO MILD PAIN(1-3)OR ELEVATED TEMP Last administered on 08/21/18at 21:07; Admin Dose 500 MG; Start 08/16/18 at 20:00 Ascorbic Acid (Vitamin C) 500 mg BID GTB Last administered on 08/22/18at 08:45; Admin Dose 500 MG; Start 08/16/18 at 21:00 Bicalutamide (Casodex) 50 mg DAILY PO ; Start 08/17/18 at 09:00; Status Hold Metoprolol Tartrate (Lopressor) 25 mg BID PO Last administered on 08/19/18at 09:46; Admin Dose 25 MG; Start 08/17/18 at 21:00 Fish Oil (Fish Oil) 1,000 mg BID PO Last administered on 08/22/18 08:45; Admin Dose 1,000 MG; Start 08/18/18 at 14:00 Norepinephrine 250 ml @ 1.875 mls/ hr TITRATE IV Last administered on 08/19/18at 11:59; Admin Dose 1.875 MLS/HR; Start 08/19/18 at 11:00 Albuterol (Ventolin Hfa) 4 puff Q4H RESP THERAPY INH Last administered on 08/22/18at 15:15; Admin Dose 4 PUFF; Start 08/19/18 at 17:00 Ipratropium [place] (Atrovent Hfa) 4 puff Q4 INH Last administered on 08/22/18 15:15; Admin Dose 4 PUFF; Start 08/19/18 at 17:00 Lactated Ringer's 1,000 ml @ 50 mls/hr Q20H IV Last administered on 08/22/18at 08:45; Admin Dose 50 MLS/HR; Start 08/19/18 at 14:00 Phenylephrine HCl 40 mg/Dextrose 250 ml @ 37.5 mls/hr TITRATE IV Last admin istered on 08/22/18at 00:09; Admin Dose 26.25 MLS/HR; Start 08/19/18 at 14:00 Insulin Aspart (Novolog Insulin Pen) NOVOLOG *MILD* ALGORI... Q4 SC Last administered on 08/20/18at 13:37; Admin Dose 1 UNIT; Start 08/19/18 at 22:00 Miscellaneous Information 1 ea NOTE XX ; Start 08/19/18 at 21:30 Glucose (Glutose) 15 gm Q15M PRN PO DECREASED GLUCOSE; Start 08/19/18 at 21:30 Glucose (Glutose) 22.5 gm Q15M PRN PO DECREASED GLUCOSE; Start 08/19/18 at 21:30 Dextrose (D50w Syringe) 25 ml Q15M PRN IV DECREASED GLUCOSE; Start 08/19/18 at 21:30 Dextrose (D50w Syringe) 50 ml Q15M PRN IV DECREASED GLUCOSE; Start 08/19/18 at 21:30 Glucagon (Glucagen) 1 mg Q15M PRN IM DECREASED GLUCOSE; Start 08/19/18 at 21:30 Glucose (Glutose) 15 gm Q15M PRN BUCCAL DECREASED GLUCOSE; Start 08/19/18 at 21:30 Methenamine (Hiprex) 1 gm BID GTB Last administered on 08/22/18 08:45; Admin Dose 1 GM; Start 08/20/18 at 21:00 Prenat Multivit/ [place]/Iron/Folic Ac () 1 tab DAILY GTB Last administered on 08/22/18 08:45; Admin Dose 1 TAB; Start 08/21/18 at 09:00 Zinc Sulfate (Zinc Sulfate) 220 mg DAILY GTB Last administered on 08/22/18 08:45; Admin Dose 220 MG; Start 08/21/18 at 09:00 Finasteride (Proscar) 5 mg DAILY GTB Last administered on 08/22/18 08:45; Admin Dose 5 MG; Start 08/20/18 at 10:00 Morphine Sulfate (morphine) 1 mg Q4H PRN IV SEVERE PAIN LEVEL 7-10; Start 08/21/18 at 12:00 Cefepime HCl 50 ml @ 100 mls/hr Q12 IVPB Last administered on 08/22/18at 08:45; Admin Dose 100 MLS/HR; Start 08/21/18 at 14:27 Acetaminophen 65 ml @ 400 mls/hr Q6H IVPB Last administered on 08/22/18at 15:40; Admin Dose 400 MLS/HR; Start 08/22/18 at 15:30; Stop 08/23/18 at 15:29 Albumin Human 50 ml @ 100 mls/hr Q8H IV Last administered on 08/22/18at 12:31; Admin Dose 100 MLS/HR; Start 08/22/18 at 12:00; Stop 08/22/18 at 20:29 AILIN RUEDA MD August 22, 2018 16:20
[2018-08-22] MEDS ORDERED: POTASSIUM PHOSPHATE 20 MEQ in SOD CHLORIDE 0.9% 250 ML IVPB ONE (18:00)
[2018-08-22] MEDS ORDERED: SOD CHLORIDE 0.9% 500 ML IV ONE (23:00)
[2018-08-23] VITALS (34 sets, daily range): BP systolic 95–129; BP diastolic 40–70; PULSE 69–103; RESP 18–26
[2018-08-23] MEDS: INSULIN ASPART [NOVOLOG] 3 ML PEN SC SCH ×2 (01:00→05:00)
[2018-08-23] MEDS: IPRATROPIUM (HFA) 12.9 GM INHALER INH SCH ×6 (01:01→21:37)
[2018-08-23] MEDS: ALBUTEROL HFA 8 GM INHALER INH SCH ×6 (01:01→21:37)
[2018-08-23] MEDS: ACETAMINOPHEN 1000MG/100ML IV 65 ML IVPB SCH ×2 (03:34→10:08)
[2018-08-23] MEDS: LACTATED RINGER'S 1,000 ML IV SCH ×2 (05:23→19:54)
[2018-08-23] MEDS: CEFEPIME 1GM/50 ML IVPB SCH ×2 (10:07→20:15)
[2018-08-23] MEDS: FISH OIL 1,000 MG CAP PO SCH ×2 (10:08→20:14)
[2018-08-23] MEDS: ZINC SULFATE 220 MG CAP GTB SCH (10:08)
[2018-08-23] MEDS: FINASTERIDE 5 MG TAB GTB SCH (10:09)
[2018-08-23] MEDS: ASCORBIC ACID 500 MG TAB GTB SCH ×2 (10:09→20:15)
[2018-08-23] MEDS: METOPROLOL 25 MG TAB PO SCH ×2 (10:09→20:15)
[2018-08-23] MEDS: PRENATAL VITAMIN GTB SCH (10:09)
[2018-08-23] MEDS: METHENAMINE 1 GM TAB GTB SCH ×2 (10:09→20:14)
[2018-08-23] MEDS: BALSAM PERU/CASTOR OIL 60 GM TUBE TOP SCH ×2 (10:10→20:15)
--- NOTE | 2018-08-23 10:15 | CONS ---
Assessment/Plan Assessment/Plan Hospital Course (Demo Recall) IMPRESSION: 1. Abnormal electrocardiogram, assess for acute coronary syndrome.-neg trop x 2. NL EF by echo this admit 2. Cardiac arrhythmia at this time, most consistent with sinus arrhythmia.-mild tachycardia, sinus arrythmia. NL TSH- now with increased S tachycardia today-? due to pain/resp distress/anxiety/hypotension 3. Hypotension-now off neosynephrine 4. Dysphagia, status post PEG placement today. 5. Failure to thrive. 6. History of prostate carcinoma. 7. History of aplastic anemia-currently improved 8. Hypernatremia. 10. Pancytopenia-currently overall improved Hgb 11. Resp failure s/p intubation 12. Pleural effusion s/p thoracentesis c/b PTX with CT now 14. PNA Recc: -Now in ICU -serial ecg's -follow Hgb closely and transfuse as necessary -Continue avodart -Follow CT output -Continue abx's and f/u cx data -Follow volume status -Follow HR/BP closely -s/p albumin infusion x 2 -toleratiing low dose BB Consultation Date/Type/Reason Admit Date/Time Aug 16, 2018 at 14:10 Initial Consult Date 08/17/18 Type of Consult Cardiology Reason for Consultation tachycardia Requesting Provider: SANIA WHITTINGTON MD Date/Time of Note DATE: 08/23/18 TIME: 10:12 Exam/Review of Systems Vital Signs Vitals Vital Signs Date Temp Pulse Resp B/P (MAP) Pulse Ox O2 O2 Flow FiO2 Time Delivery Rate 08/23/18 86 21 108/55 97 Mechanical 06:00 (72) Ventilator 08/23/18 30 05:31 08/23/18 97.8 04:00 08/19/18 4.0 08:00 Intake and Output 08/22/18 08/22/18 08/23/18 1515:00 23:00 07:00 IntakeIntake Total 755.0 ml 890 ml 1350 ml OutputOutput Total 370 ml 280 ml 430 ml BalanceBalance 385.0 ml 610 ml 920 ml Exam Exam Review of Systems: CONSTITUTIONAL: No fevers, chills. PULMONARY: No sob CARDIOVASCULAR: No chest pain/palpitations GASTROINTESTINAL: No nausea/vomiting. GENITOURINARY: No hematuria/dysuria. MUSCULOSKELETAL: No myagias/arthalgias. PSYCHIATRIC: The patient denies depression. NEUROLOGIC: No weakness Constitutional: other (encephalopathic) Psych: no complaints Head: normocephalic ENMT: mucosa pink and moist Neck: supple, jvd (9 cm water) Respiratory: diminished breath sounds Cardiovascular: regular rate and rhythm Gastrointestinal: soft, non-tender Musculoskeletal: muscle tone Extremities: edema (none) Neurological: other (encephalopathic) Labs Result Diagram: 08/23/18 0500 08/23/18 0500 Results 24hrs Laboratory Tests Test 08/22/18 11:15 08/22/18 13:40 08/22/18 17:35 08/22/18 20:21 Blood Gas Blood arterial Specimen Source Arterial Blood 08/22/2018 11:10: Date Drawn 44 AM Arterial Blood 7.380 pH (Temp corrected ) Arterial Blood 38.2 pCO2 (Temp correct) Arterial Blood 91.8 H pO2 (Temp corrected ) Arterial Blood 22.1 HCO3 Arterial Blood -2.7 Base Excess Arterial Blood 96.4 Oxygen Saturati on Jarod Test V Arterial Blood Right Radial Gas Puncture Site Arterial 0.3 Blood Carboxyhe moglobin Arterial Blood 0.5 Methemoglobin Blood Gas A-a 149.5 H O2 Differential Oxyhemoglobin 95.6 Percent Blood Gas 37.0 Temperature Blood Gas 24 Actual Respiration Rat e Blood Gas VENT - CPAP Modality FiO2 40.0 Blood Gas Low 5.0 PEEP Setting Blood Gas 10 Pressure Support Blood Gas TM Notified Whom Blood Gas 08/22/2018 11:16: Notified Time 37 AM Bedside Glucose 84 125 122 Test 08/23/18 01:00 08/23/18 05:00 08/23/18 05:29 08/23/18 07:00 Bedside Glucose 115 96 White Blood 2.7 #L Count Red Blood Count 2.67 #L Hemoglobin 7.6 #L Hematocrit 22.8 #L Mean 85.4 Corpuscular Volume Mean 28.5 L Corpuscular Hemoglobin Mean 33.3 Corpuscular Hemoglobin Conc ent Red Cell 17.6 H Distribution Width Platelet Count 46 #L Mean Platelet Volume Immature 8.400 H Granulocytes % Neutrophils % Segmented 37 L Neutrophils % (Manual) Band 18 H Neutrophils % (Manual) Lymphocytes % Lymphocytes % 36 (Manual) Reactive 1 H Lymphocytes % (Manual) Monocytes % Monocytes % 3 (Manual) Eosinophils % Eosinophils % 3 (Manual) Basophils % Metamyelocytes 1 H % (manual) Myelocytes % 3 H (Manual) Nucleated Red 14 H Blood Cells % Immature 0.230 H Granulocytes # Neutrophils # Neutrophils # 1.0 L (Manual) Band 0.4 Neutrophils # Lymphocytes 0.9 (Manual) Lymphocytes # Reactive 0.0 Lymphocytes # Monocytes # Monocytes # 0.0 L (Manual) Eosinophils # Basophils # Metamyelocytes 0.0 # Myelocytes # 0.0 Nucleated Red Blood Cells # Toxic 3+ Granulation Platelet SIG DECREASED Estimate Giant Platelets 1 H Polychromasia 3+ Poikilocytosis 3+ Anisocytosis 1+ Microcytosis 1+ Spherocytes 1+ Target Cells 1+ Ovalocytes 2+ Sodium Level 137 Potassium Level 3.8 Chloride Level 110 Carbon Dioxide 24 Level Anion Gap 3 L Blood Urea 40 H Nitrogen Creatinine 0.50 L Est Glomerular Filtrat Rate mL/min Glucose Level 93 Calcium Level 7.7 L Phosphorus 2.1 L Level Total Bilirubin 0.4 Direct 0.00 Bilirubin Indirect 0.4 Bilirubin Aspartate Amino 171 H Transf (AST/SGO T) Alanine 44 Aminotransferas e (ALT/SGPT) Alkaline 424 H Phosphatase Total Protein 4.5 L Albumin 2.1 L Globulin 2.40 Albumin/Globuli 0.87 n Ratio Blood Gas Blood arterial Specimen Source Arterial Blood 08/23/2018 7:10:3 Date Drawn 7 AM Arterial Blood 7.467 H pH (Temp corrected ) Arterial Blood 29.2 L pCO2 (Temp correct) Arterial Blood 116.5 H pO2 (Temp corrected ) Arterial Blood 20.6 L HCO3 Arterial Blood -2.5 Base Excess Arterial Blood 97.8 Oxygen Saturati on Jarod Test ACCEPTAB Arterial Blood Right Radial Gas Puncture Site Arterial 0.3 Blood Carboxyhe moglobin Arterial Blood 0.5 Methemoglobin Blood Gas A-a 63.1 H O2 Differential Oxyhemoglobin 97.0 Percent Blood Gas 37.0 Temperature Blood Gas 16.0 Respiration Rate Blood Gas 18 Actual Respiration Rat e Blood Gas VENT - AC Modality FiO2 30.0 Blood Gas Tidal 450.0 Volume Blood Gas Low 5.0 PEEP Setting Blood Gas TM Notified Whom Blood Gas 08/23/2018 7:21:1 Notified Time 7 AM Medications Medications Current Medications Miscellaneous Information [facility] This patient h a... PRN PRN XX WOUND CARE; Start 08/16/18 at 20:00 Acetaminophen (Tylenol Tab) 500 mg Q4H PRN PO MILD PAIN(1-3)OR ELEVATED TEMP Last administered on 08/21/18 21:07; Admin Dose 500 MG; Start 08/16/18 at 20:00 Ascorbic Acid (Vitamin C) 500 mg BID GTB Last administered on 08/23/18 10:09; Admin Dose 500 MG; Start 08/16/18 at 21:00 Bicalutamide (Casodex) 50 mg DAILY PO ; Start 08/17/18 at 09:00; Status Hold Metoprolol Tartrate (Lopressor) 25 mg BID PO Last administered on 08/23/18 10:09; Admin Dose 25 MG; Start 08/17/18 at 21:00 Fish Oil (Fish Oil) 1,000 mg BID PO Last administered on 08/23/18 10:08; Admin Dose 1,000 MG; Start 08/18/18 at 14:00 Norepinephrine 250 ml @ 1.875 mls/ hr TITRATE IV Last administered on 08/19/18 11:59; Admin Dose 1.875 MLS/HR; Start 08/19/18 at 11:00 Albuterol (Ventolin Hfa) 4 puff Q4H RESP THERAPY INH Last administered on 08/23/18 09:01; Admin Dose 4 PUFF; Start 08/19/18 at 17:00 Ipratropium [place] (Atrovent Hfa) 4 puff Q4 INH Last administered on 08/23/18 09:01; Admin Dose 4 PUFF; Start 08/19/18 at 17:00 Lactated Ringer's 1,000 ml @ 70 mls/hr [id number] IV Last administered on 08/23/18 05:23; Admin Dose 70 MLS/HR; Start 08/19/18 at 14:00 Phenylephrine HCl 40 mg/Dextrose 250 ml @ 37.5 mls/hr TITRATE IV Last administered on 08/22/18 00:09; Admin Dose 26.25 MLS/HR; Start 08/19/18 at 14:00 Miscellaneous Information 1 ea NOTE XX ; Start 08/19/18 at 21:30 Glucose (Glutose) 15 gm Q15M PRN PO DECREASED GLUCOSE; Start 08/19/18 at 21:30 Glucose (Glutose) 22.5 gm Q15M PRN PO DECREASED GLUCOSE; Start 08/19/18 at 21:30 Dextrose (D50w Syringe) 25 ml Q15M PRN IV DECREASED GLUCOSE; Start 08/19/18 at 21:30 Dextrose (D50w Syringe) 50 ml Q15M PRN IV DECREASED GLUCOSE; Start 08/19/18 at 21:30 Glucagon (Glucagen) 1 mg Q15M PRN IM DECREASED GLUCOSE; Start 08/19/18 at 21:30 Glucose (Glutose) 15 gm Q15M PRN BUCCAL DECREASED GLUCOSE; Start 08/19/18 at 21:30 Methenamine (Hiprex) 1 gm BID GTB Last administered on 08/23/18 10:09; Admin Dose 1 GM; Start 08/20/18 at 21:00 Prenat Multivit/ [employer]/Iron/Folic Ac () 1 tab DAILY GTB Last admini stered on 08/23/18 10:09; Admin Dose 1 TAB; Start 08/21/18 at 09:00 Zinc Sulfate (Zinc Sulfate) 220 mg DAILY GTB Last administered on 08/23/18 10:08; Admin Dose 220 MG; Start 08/21/18 at 09:00 Finasteride (Proscar) 5 mg DAILY GTB Last administered on 08/23/18 10:09; Admin Dose 5 MG; Start 08/20/18 at 10:00 Morphine Sulfate (morphine) 1 mg Q4H PRN IV SEVERE PAIN LEVEL 7-10; Start 08/21/18 at 12:00 Cefepime HCl 50 ml @ 100 mls/hr Q12 IVPB Last administered on 08/23/18at 10:07; Admin Dose 100 MLS/HR; Start 08/21/18 at 14:27 Acetaminophen 65 ml @ 400 mls/hr Q6H IVPB Last administered on 08/23/18 10:08; Admin Dose 400 MLS/HR; Start 08/22/18 at 15:30; Stop 08/23/18 at 15:29 Insulin Aspart (Novolog Insulin Pen) NOVOLOG *MILD* ALGORI... Q6 SC ; Start 08/23/18 at 12:00 LUIS ALBERTO EDWARD August 23, 2018 10:14
--- NOTE | 2018-08-23 10:20 | CONS ---
Assessment/Plan Assessment/Plan Assessment/Plan (Daily) Hospital Course (Demo Recall) 87 yo male with prostate cancer with possible bone mets presents with failure to thrive and malnutrition. S/P PEG 08/[address] Rueda Interval hx: Pt still intubated. Tolerating tube feeds at 30cc with no residuals 1. Dysphagia -GJ tube 2. Failure to thrive. 3. Alzheimer disease. 4. 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 Also metastasis in the lung and also in the liver. Patient's PSA is greater than thousand 5. Hypertension. 6. Acute hypoxemic hypercarbic respiratory failure. -s/p chest tube placement and intubation 7. Encephalopathy 8. Anemia with downward trend -retic 2.2, Iron and percent sat wnl, TIBC low, ferritin high 9. S/P thoracentesis with lymphocytic exudate -pending cytology 10. UTI 11. Encephalopathy, as per the son patient responds to command 12. Pancytopenia secondary to metastatic prostate cancer PLAN: Supportive ICU care FOB pending Ok to increase TF to 60cc/hr, monitor residuals q 6 hours, check phos in am Monitor electrolytes for refeeding syndrome Continue with erythromycin Abdominal binder Continue with IV hydration until pt is at goal Thoracocentesis today Ammonia level today Case discussed with the son and mom Hopefully we can extubate the patient Consultation Date/Type/Reason Admit Date/Time Aug 16, 2018 at 14:10 Initial Consult Date 08/21/18 Requesting Provider: SANIA WHITTINGTON MD Date/Time of Note DATE: 08/23/18 TIME: 10:14 24 HR Interval Summary Subjective hx not possible: pt critical Exam/Review of Systems Exam Vitals Vital Signs Date Temp Pulse Resp B/P (MAP) Pulse Ox O2 O2 Flow FiO2 Time Delivery Rate 08/23/18 86 21 108/55 97 Mechanical 06:00 (72) Ventilator 08/23/18 30 05:31 08/23/18 97.8 04:00 08/19/18 4.0 08:00 Intake and Output 08/22/18 08/22/18 08/23/18 1515:00 23:00 07:00 IntakeIntake Total 755.0 ml 890 ml 1350 ml OutputOutput Total 370 ml 280 ml 430 ml BalanceBalance 385.0 ml 610 ml 920 ml Constitutional: non-verbal, frail Eyes: nl conjunctiva, EOMI, nl lids, nl sclera, PERRL ENMT: intubated Neck: supple Respiratory: diminished breath sounds Cardiovascular: regular rate and rhythm, nl pulses Gastrointestinal: soft, nl liver, spleen, non-tender Musculoskeletal: nl extremities to inspection, nl gait and stance Extremities: normal pulses Results Result Diagram: 08/23/18 0500 08/23/18 0500 Results 24hrs Laboratory Tests Test 08/22/18 11:15 08/22/18 13:40 08/22/18 17:35 08/22/18 20:21 Blood Gas Blood arterial Specimen Source Arterial Blood 08/22/2018 11:10: Date Drawn 44 AM Arterial Blood 7.380 pH (Temp corrected ) Arterial Blood 38.2 pCO2 (Temp correct) Arterial Blood 91.8 H pO2 (Temp corrected ) Arterial Blood 22.1 HCO3 Arterial Blood -2.7 Base Excess Arterial Blood 96.4 Oxygen Saturati on Jarod Test V Arterial Blood Right Radial Gas Puncture Site Arterial 0.3 Blood Carboxyhe moglobin Arterial Blood 0.5 Methemoglobin Blood Gas A-a 149.5 H O2 Differential Oxyhemoglobin 95.6 Percent Blood Gas 37.0 Temperature Blood Gas 24 Actual Respiration Rat e Blood Gas VENT - CPAP Modality FiO2 40.0 Blood Gas Low 5.0 PEEP Setting Blood Gas 10 Pressure Support Blood Gas TM Notified Whom Blood Gas 08/22/2018 11:16: Notified Time 37 AM Bedside Glucose 84 125 122 Test 08/23/18 01:00 08/23/18 05:00 08/23/18 05:29 08/23/18 07:00 Bedside Glucose 115 96 White Blood 2.7 #L Count Red Blood Count 2.67 #L Hemoglobin 7.6 #L Hematocrit 22.8 #L Mean 85.4 Corpuscular Volume Mean 28.5 L Corpuscular Hemoglobin Mean 33.3 Corpuscular Hemoglobin Conc ent Red Cell 17.6 H Distribution Width Platelet Count 46 #L Mean Platelet Volume Immature 8.400 H Granulocytes % Neutrophils % Segmented 37 L Neutrophils % (Manual) Band 18 H Neutrophils % (Manual) Lymphocytes % Lymphocytes % 36 (Manual) Reactive 1 H Lymphocytes % (Manual) Monocytes % Monocytes % 3 (Manual) Eosinophils % Eosinophils % 3 (Manual) Basophils % Metamyelocytes 1 H % (manual) Myelocytes % 3 H (Manual) Nucleated Red 14 H Blood Cells % Immature 0.230 H Granulocytes # Neutrophils # Neutrophils # 1.0 L (Manual) Band 0.4 Neutrophils # Lymphocytes 0.9 (Manual) Lymphocytes # Reactive 0.0 Lymphocytes # Monocytes # Monocytes # 0.0 L (Manual) Eosinophils # Basophils # Metamyelocytes 0.0 # Myelocytes # 0.0 Nucleated Red Blood Cells # Toxic 3+ Granulation Platelet SIG DECREASED Estimate Giant Platelets 1 H Polychromasia 3+ Poikilocytosis 3+ Anisocytosis 1+ Microcytosis 1+ Spherocytes 1+ Target Cells 1+ Ovalocytes 2+ Sodium Level 137 Potassium Level 3.8 Chloride Level 110 Carbon Dioxide 24 Level Anion Gap 3 L Blood Urea 40 H Nitrogen Creatinine 0.50 L Est Glomerular Filtrat Rate mL/min Glucose Level 93 Calcium Level 7.7 L Phosphorus 2.1 L Level Total Bilirubin 0.4 Direct 0.00 Bilirubin Indirect 0.4 Bilirubin Aspartate Amino 171 H Transf (AST/SGO T) Alanine 44 Aminotransferas e (ALT/SGPT) Alkaline 424 H Phosphatase Total Protein 4.5 L Albumin 2.1 L Globulin 2.40 Albumin/Globuli 0.87 n Ratio Blood Gas Blood arterial Specimen Source Arterial Blood 08/23/2018 7:10:3 Date Drawn 7 AM Arterial Blood 7.467 H pH (Temp corrected ) Arterial Blood 29.2 L pCO2 (Temp correct) Arterial Blood 116.5 H pO2 (Temp corrected ) Arterial Blood 20.6 L HCO3 Arterial Blood -2.5 Base Excess Arterial Blood 97.8 Oxygen Saturati on Jarod Test ACCEPTAB Arterial Blood Right Radial Gas Puncture Site Arterial 0.3 Blood Carboxyhe moglobin Arterial Blood 0.5 Methemoglobin Blood Gas A-a 63.1 H O2 Differential Oxyhemoglobin 97.0 Percent Blood Gas 37.0 Temperature Blood Gas 16.0 Respiration Rate Blood Gas 18 Actual Respiration Rat e Blood Gas VENT - AC Modality FiO2 30.0 Blood Gas Tidal 450.0 Volume Blood Gas Low 5.0 PEEP Setting Blood Gas TM Notified Whom Blood Gas 08/23/2018 7:21:1 Notified Time 7 AM Medications Medication Current Medications Miscellaneous Information (Pending [facility] Order For Wound Care) This patient tabares... PRN PRN XX WOUND CARE; Start 08/16/18 at 20:00 Acetaminophen (Tylenol Tab) 500 mg Q4H PRN PO MILD PAIN(1-3)OR ELEVATED TEMP Last administered on 08/21/18 21:07; Admin Dose 500 MG; Start 08/16/18 at 20:00 Ascorbic Acid (Vitamin C) 500 mg BID GTB Last administered on 08/23/18 10:09; Admin Dose 500 MG; Start 08/16/18 at 21:00 Bicalutamide (Casodex) 50 mg DAILY PO ; Start 08/17/18 at 09:00; Status Hold Metoprolol Tartrate (Lopressor) 25 mg BID PO Last administered on 08/23/18 10:09; Admin Dose 25 MG; Start 08/17/18 at 21:00 Fish Oil (Fish Oil) 1,000 mg BID PO Last administered on 08/23/18 10:08; Admin Dose 1,000 MG; Start 08/18/18 at 14:00 Norepinephrine 250 ml @ 1.875 mls/ hr TITRATE IV Last administered on 08/19/18at 11:59; Admin Dose 1.875 MLS/HR; Start 08/19/18 at 11:00 Albuterol (Ventolin Hfa) 4 puff Q4H RESP THERAPY INH Last administered on 08/23/18 09:01; Admin Dose 4 PUFF; Start 08/19/18 at 17:00 Ipratropium [place] (Atrovent Hfa) 4 puff Q4 INH Last administered on 08/23/18 09:01; Admin Dose 4 PUFF; Start 08/19/18 at 17:00 Lactated Ringer's 1,000 ml @ 70 mls/hr [id number] IV Last administered on 08/23/18 05:23; Admin Dose 70 MLS/HR; Start 08/19/18 at 14:00 Phenylephrine HCl 40 mg/Dextrose 250 ml @ 37.5 mls/hr TITRATE IV Last adm inistered on 08/22/18 00:09; Admin Dose 26.25 MLS/HR; Start 08/19/18 at 14:00 Miscellaneous Information 1 ea NOTE XX ; Start 08/19/18 at 21:30 Glucose (Glutose) 15 gm Q15M PRN PO DECREASED GLUCOSE; Start 08/19/18 at 21:30 Glucose (Glutose) 22.5 gm Q15M PRN PO DECREASED GLUCOSE; Start 08/19/18 at 2 1:30 Dextrose (D50w Syringe) 25 ml Q15M PRN IV DECREASED GLUCOSE; Start 08/19/18 at 21:30 Dextrose (D50w Syringe) 50 ml Q15M PRN IV DECREASED GLUCOSE; Start 08/19/18 at 21:30 Glucagon (Glucagen) 1 mg Q15M PRN IM DECREASED GLUCOSE; Start 08/19/18 at 21:30 Glucose (Glutose) 15 gm Q15M PRN BUCCAL DECREASED GLUCOSE; Start 08/19/18 at 21:30 Methenamine (Hiprex) 1 gm BID GTB Last administered on 08/23/18 10:09; Admin Dose 1 GM; Start 08/20/18 at 21:00 Prenat Multivit/ [employer]/Iron/Folic Ac () 1 tab DAILY GTB Last administered on 08/23/18 10:09; Admin Dose 1 TAB; Start 08/21/18 at 09:00 Zinc Sulfate (Zinc Sulfate) 220 mg DAILY GTB Last administered on 08/23/18at 10:08; Admin Dose 220 MG; Start 08/21/18 at 09:00 Finasteride (Proscar) 5 mg DAILY GTB Last administered on 08/23/18at 10:09; Admin Dose 5 MG; Start 08/20/18 at 10:00 Morphine Sulfate (morphine) 1 mg Q4H PRN IV SEVERE PAIN LEVEL 7-10; Start 08/21/18 at 12:00 Cefepime HCl 50 ml @ 100 mls/hr Q12 IVPB Last administered on 08/23/18at 10:07; Admin Dose 100 MLS/HR; Start 08/21/18 at 14:27 Acetaminophen 65 ml @ 400 mls/hr Q6H IVPB Last administered on 08/23/18at 10:08; Admin Dose 400 MLS/HR; Start 08/22/18 at 15:30; Stop 08/23/18 at 15:29 Insulin Aspart (Novolog Insulin Pen) NOVOLOG *MILD* ALGORI... Q6 SC ; Start 08/23/18 at 12:00 AILIN RUEDA MD August 23, 2018 10:20
--- NOTE | 2018-08-23 10:28 | CONS ---
Assessment/Plan Assessment/Plan Assessment/Plan (Daily) Chest x-ray was reviewed from today which is showing worsening left pleural effusion. Right-sided chest tube in place. Endotracheal tube at an adequate level. Ventilator setting; AC of 16, tidal volume 450, PEEP of 5, 30% FiO2. Assessment and recommendations; 1. Patient admitted with shortness of breath due to large bilateral pleural effusions with widely metastatic prostate cancer. 2. Status post right chest tube placement due to pneumothorax. 3. Significant left pleural effusion. 4. History of G-tube placement. 5. Severe generalized deconditioning. 6. Dementia. 7. Anemia and severe thrombocytopenia. 8. Generalized anasarca. 9. Possibly some element of pneumonia. Continue current supportive care. I did have a very lengthy discussion with the patient's children at bedside apprised them of overall poor prognosis. In order to help facilitate weaning from ventilator I would recommend placing the left Pleurx catheter. 40 minutes of critical care time was spent evaluating the patient. Consultation Date/Type/Reason Admit Date/Time Aug 16, 2018 at 14:10 Initial Consult Date 08/21/18 Type of Consult Pulmonary Patient is an 87-year-old gentleman who was brought into the hospital because of failure to thrive. Upon further evaluation of chest x-ray was done which is showing bilateral pleural effusions subsequently confirmed by CT of the chest. The patient has advanced dementia and was unable to give any history by himself whatsoever. History was obtained from medical records as well as from patient's son who is an anesthesiologist at the hospital according to the patient's son patient is having significant clinical decline with failure to thrive as well as bedridden state. Patient also exhibiting advanced dementia. By the time I saw the patient, patient is lying comfortably in bed and did not appear to be in any distress. Past medical history; 1. History of metastatic prostate cancer. Status post hormone treatment with the patient could not continue because of side effects. 2. Pancytopenia, likely related to bone marrow involvement by prostate cancer. 3. Advanced dementia. Medications; reviewed. Allergies; none. Family history; noncontributory. Review of systems; unable to be obtained. General exam; elderly male, laying comfortably in bed. Currently no distress. Awake but noncommunicative. Requesting Provider: SANIA WHITTINGTON MD Date/Time of Note DATE: 08/23/18 TIME: 10:25 24 HR Interval Summary Free Text/Dictation Patient's condition remains critical. Remains awake but noncommunicative. Patient has remained hemodynamically stable. General exam; elderly male, orally intubated, awake but noncommunicative. Currently in no distress. Exam/Review of Systems Exam Vitals Vital Signs Date Temp Pulse Resp B/P (MAP) Pulse Ox O2 O2 Flow FiO2 Time Delivery Rate 08/23/18 86 21 108/55 97 Mechanical 06:00 (72) Ventilator 08/23/18 30 05:31 08/23/18 97.8 04:00 08/19/18 4.0 08:00 Intake and Output 08/22/18 08/22/18 08/23/18 1515:00 23:00 07:00 IntakeIntake Total 755.0 ml 890 ml 1350 ml OutputOutput Total 370 ml 280 ml 430 ml BalanceBalance 385.0 ml 610 ml 920 ml Exam H EENT exam; supple neck, no JVD. No lymphadenopathy. Midline trachea. No thyromegaly. Patient is edentulous. Orally intubated. No neck masses. Chest exam; diminished breath sounds bilaterally. S1-S2 audible, no murmurs. Regular rhythm. Right-sided chest tube in place. No air leak in Pleur-evac chamber. Abdomen exam; soft, scaphoid. No organomegaly. G-tube in place. Bowel sounds audible. Extremity exam; 1+ generalized anasarca. FOOD AND BEVERAGE MANAGER exam; patient awake but noncommunicative. Results Result Diagram: 08/23/18 0500 08/23/18 0500 Results 24hrs Laboratory Tests Test 08/22/18 11:15 08/22/18 13:40 08/22/18 17:35 08/22/18 20:21 Blood Gas Blood arterial Specimen Source Arterial Blood 08/22/2018 11:10: Date Drawn 44 AM Arterial Blood 7.380 pH (Temp corrected ) Arterial Blood 38.2 pCO2 (Temp correct) Arterial Blood 91.8 H pO2 (Temp corrected ) Arterial Blood 22.1 HCO3 Arterial Blood -2.7 Base Excess Arterial Blood 96.4 Oxygen Saturati on Jarod Test V Arterial Blood Right Radial Gas Puncture Site Arterial 0.3 Blood Carboxyhe moglobin Arterial Blood 0.5 Methemoglobin Blood Gas A-a 149.5 H O2 Differential Oxyhemoglobin 95.6 Percent Blood Gas 37.0 Temperature Blood Gas 24 Actual Respiration Rat e Blood Gas VENT - CPAP Modality FiO2 40.0 Blood Gas Low 5.0 PEEP Setting Blood Gas 10 Pressure Support Blood Gas TM Notified Whom Blood Gas 08/22/2018 11:16: Notified Time 37 AM Bedside Glucose 84 125 122 Test 08/23/18 01:00 08/23/18 05:00 08/23/18 05:29 08/23/18 07:00 Bedside Glucose 115 96 White Blood 2.7 #L Count Red Blood Count 2.67 #L Hemoglobin 7.6 #L Hematocrit 22.8 #L Mean 85.4 Corpuscular Volume Mean 28.5 L Corpuscular Hemoglobin Mean 33.3 Corpuscular Hemoglobin Conc ent Red Cell 17.6 H Distribution Width Platelet Count 46 #L Mean Platelet Volume Immature 8.400 H Granulocytes % Neutrophils % Segmented 37 L Neutrophils % (Manual) Band 18 H Neutrophils % (Manual) Lymphocytes % Lymphocytes % 36 (Manual) Reactive 1 H Lymphocytes % (Manual) Monocytes % Monocytes % 3 (Manual) Eosinophils % Eosinophils % 3 (Manual) Basophils % Metamyelocytes 1 H % (manual) Myelocytes % 3 H (Manual) Nucleated Red 14 H Blood Cells % Immature 0.230 H Granulocytes # Neutrophils # Neutrophils # 1.0 L (Manual) Band 0.4 Neutrophils # Lymphocytes 0.9 (Manual) Lymphocytes # Reactive 0.0 Lymphocytes # Monocytes # Monocytes # 0.0 L (Manual) Eosinophils # Basophils # Metamyelocytes 0.0 # Myelocytes # 0.0 Nucleated Red Blood Cells # Toxic 3+ Granulation Platelet SIG DECREASED Estimate Giant Platelets 1 H Polychromasia 3+ Poikilocytosis 3+ Anisocytosis 1+ Microcytosis 1+ Spherocytes 1+ Target Cells 1+ Ovalocytes 2+ Sodium Level 137 Potassium Level 3.8 Chloride Level 110 Carbon Dioxide 24 Level Anion Gap 3 L Blood Urea 40 H Nitrogen Creatinine 0.50 L Est Glomerular Filtrat Rate mL/min Glucose Level 93 Calcium Level 7.7 L Phosphorus 2.1 L Level Total Bilirubin 0.4 Direct 0.00 Bilirubin Indirect 0.4 Bilirubin Aspartate Amino 171 H Transf (AST/SGO T) Alanine 44 Aminotransferas e (ALT/SGPT) Alkaline 424 H Phosphatase Total Protein 4.5 L Albumin 2.1 L Globulin 2.40 Albumin/Globuli 0.87 n Ratio Blood Gas Blood arterial Specimen Source Arterial Blood 08/23/2018 7:10:3 Date Drawn 7 AM Arterial Blood 7.467 H pH (Temp corrected ) Arterial Blood 29.2 L pCO2 (Temp correct) Arterial Blood 116.5 H pO2 (Temp corrected ) Arterial Blood 20.6 L HCO3 Arterial Blood -2.5 Base Excess Arterial Blood 97.8 Oxygen Saturati on Jarod Test ACCEPTAB Arterial Blood Right Radial Gas Puncture Site Arterial 0.3 Blood Carboxyhe moglobin Arterial Blood 0.5 Methemoglobin Blood Gas A-a 63.1 H O2 Differential Oxyhemoglobin 97.0 Percent Blood Gas 37.0 Temperature Blood Gas 16.0 Respiration Rate Blood Gas 18 Actual Respiration Rat e Blood Gas VENT - AC Modality FiO2 30.0 Blood Gas Tidal 450.0 Volume Blood Gas Low 5.0 PEEP Setting Blood Gas TM Notified Whom Blood Gas 08/23/2018 7:21:1 Notified Time 7 AM Medications Medication Current Medications Miscellaneous Information (Pending [facility] Order For Wound Care) This patient tabares... PRN PRN XX WOUND CARE; Start 08/16/18 at 20:00 Acetaminophen (Tylenol Tab) 500 mg Q4H PRN PO MILD PAIN(1-3)OR ELEVATED TEMP Last administered on 08/21/18at 21:07; Admin Dose 500 MG; Start 08/16/18 at 20:00 Ascorbic Acid (Vitamin C) 500 mg BID GTB Last administered on 08/23/18at 10:09; A dmin Dose 500 MG; Start 08/16/18 at 21:00 Bicalutamide (Casodex) 50 mg DAILY PO ; Start 08/17/18 at 09:00; Status Hold Metoprolol Tartrate (Lopressor) 25 mg BID PO Last administered on 08/23/18 10:0 9; Admin Dose 25 MG; Start 08/17/18 at 21:00 Fish Oil (Fish Oil) 1,000 mg BID PO Last administered on 08/23/18at 10:08; Admin Dose 1,000 MG; Start 08/18/18 at 14:00 Norepinephrine 250 ml @ 1.875 mls/ hr TITRATE IV Last administered on 08/19/18at 11:59; Admin Dose 1.875 MLS/HR; Start 08/19/18 at 11:00 Albuterol (Ventolin Hfa) 4 puff Q4H RESP THERAPY INH Last administered on 08/23/18 09:01; Admin Dose 4 PUFF; Start 08/19/18 at 17:00 Ipratropium [place] (Atrovent Hfa) 4 puff Q4 INH Last administered on 08/23/18 09:01; Admin Dose 4 PUFF; Start 08/19/18 at 17:00 Lactated Ringer's 1,000 ml @ 70 mls/hr [id number] IV Last administered on 08/23/18 05:23; Admin Dose 70 MLS/HR; Start 08/19/18 at 14:00 Phenylephrine HCl 40 mg/Dextrose 250 ml @ 37.5 mls/hr TITRATE IV Last administered on 08/22/18at 00:09; Admin Dose 26.25 MLS/HR; Start 08/19/18 at 14:00 Miscellaneous Information 1 ea NOTE XX ; Start 08/19/18 at 21:30 Glucose (Glutose) 15 gm Q15M PRN PO DECREASED GLUCOSE; Start 08/19/18 at 21:30 Glucose (Glutose) 22.5 gm Q15M PRN PO DECREASED GLUCOSE; Start 08/19/18 at 21:30 Dextrose (D50w Syringe) 25 ml Q15M PRN IV DECREASED GLUCOSE; Start 08/19/18 at 21:30 Dextrose (D50w Syringe) 50 ml Q15M PRN IV DECREASED GLUCOSE; Start 08/19/18 at 21:30 Glucagon (Glucagen) 1 mg Q15M PRN IM DECREASED GLUCOSE; Start 08/19/18 at 21:30 Glucose (Glutose) 15 gm Q15M PRN BUCCAL DECREASED GLUCOSE; Start 08/19/18 at 21:30 Methenamine (Hiprex) 1 gm BID GTB Last administered on 08/23/18 10:09; Admin Dose 1 GM; Start 08/20/18 at 21:00 Prenat Multivit/ [place]/Iron/Folic Ac () 1 tab DAILY GTB Last administered on 08/23/18 10:09; Admin Dose 1 TAB; Start 08/21/18 at 09:00 Zinc Sulfate (Zinc Sulfate) 220 mg DAILY GTB Last administered on 08/23/18 10:08; Admin Dose 220 MG; Start 08/21/18 at 09:00 Finasteride (Proscar) 5 mg DAILY GTB Last administered on 08/23/18at 10:09; Admin Dose 5 MG; Start 08/20/18 at 10:00 Morphine Sulfate (morphine) 1 mg Q4H PRN IV SEVERE PAIN LEVEL 7-10; Start 08/21/18 at 12:00 Cefepime HCl 50 ml @ 100 mls/hr Q12 IVPB Last administered on 08/23/18at 10:07; Admin Dose 100 MLS/HR; Start 08/21/18 at 14:27 Acetaminophen 65 ml @ 400 mls/hr Q6H IVPB Last administered on 08/23/18at 10:08; Admin Dose 400 MLS/HR; Start 08/22/18 at 15:30; Stop 08/23/18 at 15:29 Insulin Aspart (Novolog Insulin Pen) NOVOLOG *MILD* ALGORI... Q6 SC ; Start 08/23/18 at 12:00 LATISHA RAM August 23, 2018 10:28
--- NOTE | 2018-08-23 11:10 | CONS ---
[facility] HCIS Consult Follow-up Patient Name: Tyler Camacho Unit Number: [id number] Date of : 1930 Patient Status: Admitted Inpatient Attending Doctor: Demetrio Mendez MD Edit: JC ZHENG M.D. on 08/23/18 @ 20:26 Marce: I discussed the management with CIRCUIT DESIGN ENGINEER Jarvis and agree Assessment/Plan Assessment/Plan Hospital Course (Demo Recall) # sepsis, SIRS, resp - septic shock due to UTI plus SIRS due to possible aspiration, pneumothorax, improved - s/p septic shock due to UTI - off pressors - SIRS due to possible aspiration pneumonitis - probable aspiration pneumonitis - pneumonia vs. colonization of the airway due to enterobacter - b/l pleural effusion - s/p R sided thoracentesis on 08/17/2018. LDH 499, protein 3.2, WBC 89 with 93.2% monocytes. Cultures of the fluid are negative to date - s/p R PTX - s/p placement of R chest tube on 08/19/2018 - acute hypoxic resp failure - s/p intubation on 08/19/2018 # , heme/onc - UTI due to pseudomonas - prostate CA, with probable mets to the lungs and liver (based on CT results) - h/o recent chemotherapy for his prostate CA frequent UTI prior to admission. Pt was on long-term antibiotic for prophylaxis according to Pt's son - pancytopenia -worsening today # GI, alimentary - transaminitis, probably a combination of liver metastasis and shock liver - s/p failure to thrive - s/p placement of G-J tube on 08/16/2018 - moderately distended gallbladder with a moderate amount of sludge per US on 08/22/2018 # other conditions - Alzheimer's dementia recommendations: - continue cefepime (08/21/2018-) for Enterobacter and pseudomonas; plan for 5 days - we recommend changing the femoral line to PICC if a central access is needed. If not, we recommend its discontinuation Discussed management with Dr. Camacho from [facility] (Pt's son, RETAIL CLERK Mayuri, and with Dr. Zheng Total critical care time spent: 35 min Consultation Date/Type/Reason Admit Date/Time Aug 16, 2018 at 14:10 Initial Consult Date 08/21/18 Type of Consult Infectious Disease Requesting Provider: SANIA WHITTINGTON MD Date/Time of Note DATE: 08/23/18 TIME: 10:57 24 HR Interval Summary Free Text/Dictation Pulmonary is recommending L pleurx catheter placement per d/w RETAIL CLERK. Remains afebrile and BP stable off pressors. Subjective hx not possible: pt non-verbal, pt critical status Exam/Review of Systems Exam Vitals Vital Signs Date Temp Pulse Resp B/P (MAP) Pulse Ox O2 O2 Flow FiO2 Time Delivery Rate 08/23/18 86 21 108/55 97 Mechanical 06:00 (72) Ventilator 08/23/18 30 05:31 08/23/18 97.8 04:00 08/19/18 4.0 08:00 Intake and Output 08/22/18 08/22/18 08/23/18 1515:00 23:00 07:00 IntakeIntake Total 755.0 ml 890 ml 1350 ml OutputOutput Total 370 ml 280 ml 430 ml BalanceBalance 385.0 ml 610 ml 920 ml Constitutional: well developed, non-verbal, frail Psych: other (demented at baseline) Head: normocephalic, atraumatic, other (bitemporal wasting) Eyes: nl conjunctiva, nl lids, nl sclera ENMT: nl external ears & nose, intubated, other (Limited exam of OP which is dry) Neck: other (not swollen) Respiratory: diminished breath sounds, other (+R chest tube) Cardiovascular: regular rate and rhythm (Occ slightly tachycardic but regular) Gastrointestinal: soft, other (+GT with TF in progress; small amount of stool noted); No distended Genitourinary - Male: other (+Villanueva; R femoral central line c/d/i ) Extremities: normal pulses, edema, pitting pedal edema Neurological: lethargic Skin: nl turgor, other (bilateral heels with DTI with scattered foam dressings on both feet; 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); No rash or lesions Results Result Diagram: 08/23/18 0500 08/23/18 0500 Results 24hrs Laboratory Tests Test 08/22/18 11:15 08/22/18 13:40 08/22/18 17:35 08/22/18 20:21 Blood Gas Blood arterial Specimen Source Arterial Blood 08/22/2018 11:10: Date Drawn 44 AM Arterial Blood 7.380 pH (Temp corrected ) Arterial Blood 38.2 pCO2 (Temp correct) Arterial Blood 91.8 H pO2 (Temp corrected ) Arterial Blood 22.1 HCO3 Arterial Blood -2.7 Base Excess Arterial Blood 96.4 Oxygen Saturati on Jarod Test V Arterial Blood Right Radial Gas Puncture Site Arterial 0.3 Blood Carboxyhe moglobin Arterial Blood 0.5 Methemoglobin Blood Gas A-a 149.5 H O2 Differential Oxyhemoglobin 95.6 Percent Blood Gas 37.0 Temperature Blood Gas 24 Actual Respiration Rat e Blood Gas VENT - CPAP Modality FiO2 40.0 Blood Gas Low 5.0 PEEP Setting Blood Gas 10 Pressure Support Blood Gas TM Notified Whom Blood Gas 08/22/2018 11:16: Notified Time 37 AM Bedside Glucose 84 125 122 Test 08/23/18 01:00 08/23/18 05:00 08/23/18 05:29 08/23/18 07:00 Bedside Glucose 115 96 White Blood 2.7 #L Count Red Blood Count 2.67 #L Hemoglobin 7.6 #L Hematocrit 22.8 #L Mean 85.4 Corpuscular Volume Mean 28.5 L Corpuscular Hemoglobin Mean 33.3 Corpuscular Hemoglobin Conc ent Red Cell 17.6 H Distribution Width Platelet Count 46 #L Mean Platelet Volume Immature 8.400 H Granulocytes % Neutrophils % Segmented 37 L Neutrophils % (Manual) Band 18 H Neutrophils % (Manual) Lymphocytes % Lymphocytes % 36 (Manual) Reactive 1 H Lymphocytes % (Manual) Monocytes % Monocytes % 3 (Manual) Eosinophils % Eosinophils % 3 (Manual) Basophils % Metamyelocytes 1 H % (manual) Myelocytes % 3 H (Manual) Nucleated Red 14 H Blood Cells % Immature 0.230 H Granulocytes # Neutrophils # Neutrophils # 1.0 L (Manual) Band 0.4 Neutrophils # Lymphocytes 0.9 (Manual) Lymphocytes # Reactive 0.0 Lymphocytes # Monocytes # Monocytes # 0.0 L (Manual) Eosinophils # Basophils # Metamyelocytes 0.0 # Myelocytes # 0.0 Nucleated Red Blood Cells # Toxic 3+ Granulation Platelet SIG DECREASED Estimate Giant Platelets 1 H Polychromasia 3+ Poikilocytosis 3+ Anisocytosis 1+ Microcytosis 1+ Spherocytes 1+ Target Cells 1+ Ovalocytes 2+ Sodium Level 137 Potassium Level 3.8 Chloride Level 110 Carbon Dioxide 24 Level Anion Gap 3 L Blood Urea 40 H Nitrogen Creatinine 0.50 L Est Glomerular Filtrat Rate mL/min Glucose Level 93 Calcium Level 7.7 L Phosphorus 2.1 L Level Total Bilirubin 0.4 Direct 0.00 Bilirubin Indirect 0.4 Bilirubin Aspartate Amino 171 H Transf (AST/SGO T) Alanine 44 Aminotransferas e (ALT/SGPT) Alkaline 424 H Phosphatase Total Protein 4.5 L Albumin 2.1 L Globulin 2.40 Albumin/Globuli 0.87 n Ratio Blood Gas Blood arterial Specimen Source Arterial Blood 08/23/2018 7:10:3 Date Drawn 7 AM Arterial Blood 7.467 H pH (Temp corrected ) Arterial Blood 29.2 L pCO2 (Temp correct) Arterial Blood 116.5 H pO2 (Temp corrected ) Arterial Blood 20.6 L HCO3 Arterial Blood -2.5 Base Excess Arterial Blood 97.8 Oxygen Saturati on Jarod Test ACCEPTAB Arterial Blood Right Radial Gas Puncture Site Arterial 0.3 Blood Carboxyhe moglobin Arterial Blood 0.5 Methemoglobin Blood Gas A-a 63.1 H O2 Differential Oxyhemoglobin 97.0 Percent Blood Gas 37.0 Temperature Blood Gas 16.0 Respiration Rate Blood Gas 18 Actual Respiration Rat e Blood Gas VENT - AC Modality FiO2 30.0 Blood Gas Tidal 450.0 Volume Blood Gas Low 5.0 PEEP Setting Blood Gas TM Notified Whom Blood Gas 08/23/2018 7:21:1 Notified Time 7 AM Imaging Imaging CXR 08/23/2018: Stable right chest tube with a stable trace right apical pneumothorax. Stable infiltrates in both lungs, left greater than right, with small left pleural effusion. Liver US 08/22/2018: Multiple hyperechoic masses in the right lobe of the liver, suspicious for hemangioma versus metastasis. Follow-up MRI with contrast is recommended. Moderately distended gallbladder with a moderate amount of sludge. Small amount of ascites in the right upper quadrant. Right Kidney simple cysts. Medications Medication Current Medications Miscellaneous Information (Pending [facility] Order For Wound Care) This patient tabares... PRN PRN XX WOUND CARE; Start 08/16/18 at 20:00 Acetaminophen (Tylenol Tab) 500 mg Q4H PRN PO MILD PAIN(1-3)OR ELEVATED TEMP Last administered on 08/21/18 21:07; Admin Dose 500 MG; Start 08/16/18 at 20:00 Ascorbic Acid (Vitamin C) 500 mg BID GTB Last administered on 08/23/18 10:09; Admin Dose 500 MG; Start 08/16/18 at 21:00 Bicalutamide (Casodex) 50 mg DAILY PO ; Start 08/17/18 at 09:00; Status Hold Metoprolol Tartrate (Lopressor) 25 mg BID PO Last administered on 08/23/18 10:09; Admin Dose 25 MG; Start 08/17/18 at 21:00 Fish Oil (Fish Oil) 1,000 mg BID PO Last administered on 08/23/18 10:08; Admin Dose 1,000 MG; Start 08/18/18 at 14:00 Norepinephrine 250 ml @ 1.875 mls/ hr TITRATE IV Last administered on 08/19/18 11:59; Admin Dose 1.875 MLS/HR; Start 08/19/18 at 11:00 Albuterol (Ventolin Hfa) 4 puff Q4H RESP THERAPY INH Last administered on 08/23/18 09:01; Admin Dose 4 PUFF; Start 08/19/18 at 17:00 Ipratropium [place] (Atrovent Hfa) 4 puff Q4 INH Last administered on 08/23/18 09:01; Admin Dose 4 PUFF; Start 08/19/18 at 17:00 Lactated Ringer's 1,000 ml @ 70 mls/hr [id number] IV Last administered on 08/23/18 05:23; Admin Dose 70 MLS/HR; Start 08/19/18 at 14:00 Phenylephrine HCl 40 mg/Dextrose 250 ml @ 37.5 mls/hr TITRATE IV Last administered on 08/22/18 00:09; Admin Dose 26.25 MLS/HR; Start 08/19/18 at 14:00 Miscellaneous Information 1 ea NOTE XX ; Start 08/19/18 at 21:30 Glucose (Glutose) 15 gm Q15M PRN PO DECREASED GLUCOSE; Start 08/19/18 at 21:30 Glucose (Glutose) 22.5 gm Q15M PRN PO DECREASED GLUCOSE; Start 08/19/18 at 21:30 Dextrose (D50w Syringe) 25 ml Q15M PRN IV DECREASED GLUCOSE; Start 08/19/18 at 21:30 Dextrose (D50w Syringe) 50 ml Q15M PRN IV DECREASED GLUCOSE; Start 08/19/18 at 21:30 Glucagon (Glucagen) 1 mg Q15M PRN IM DECREASED GLUCOSE; Start 08/19/18 at 21:30 Glucose (Glutose) 15 gm Q15M PRN BUCCAL DECREASED GLUCOSE; Start 08/19/18 at 21:30 Methenamine (Hiprex) 1 gm BID GTB Last administered on 08/23/18at 10:09; Admin Dose 1 GM; Start 08/20/18 at 21:00 Prenat Multivit/ Buffing Line Set Up Worker/Iron/Folic Ac () 1 tab DAILY GTB Last administered on 08/23/18at 10:09; Admin Dose 1 TAB; Start 08/21/18 at 09:00 Zinc Sulfate (Zinc Sulfate) 220 mg DAILY GTB Last administered on 08/23/18 10:08; Admin Dose 220 MG; Start 08/21/18 at 09:00 Finasteride (Proscar) 5 mg DAILY GTB Last administered on 08/23/18at 10:09; Admin Dose 5 MG; Start 08/20/18 at 10:00 Morphine Sulfate (morphine) 1 mg Q4H PRN IV SEVERE PAIN LEVEL 7-10; Start 08/21/18 at 12:00 Cefepime HCl 50 ml @ 100 mls/hr Q12 IVPB Last administered on 08/23/18at 10:07; Admin Dose 100 MLS/HR; Start 08/21/18 at 14:27 Acetaminophen 65 ml @ 400 mls/hr Q6H IVPB Last administered on 08/23/18at 10:08; Admin Dose 400 MLS/HR; Start 08/22/18 at 15:30; Stop 08/23/18 at 15:29 Insulin Aspart (Novolog Insulin Pen) NOVOLOG *MILD* ALGORI... Q6 SC ; Start 08/23/18 at 12:00 Albumin Human 100 ml @ 100 mls/hr Q8H IV ; Start 08/23/18 at 11:00; Stop 08/24/18 at 03:59 SARITHA DANIELLE NP August 23, 2018 11:08
[2018-08-23] MEDS ORDERED: INSULIN ASPART [NOVOLOG] 3 ML PEN SC SCH (12:00)
[2018-08-23] MEDS: ALBUMIN HUMAN 25% 100 ML IV SCH ×2 (12:33→19:49)
[2018-08-23] MEDS ORDERED: POTASSIUM PHOSPHATE 20 MEQ in SOD CHLORIDE 0.9% 250 ML IVPB ONE (14:30)
--- NOTE | 2018-08-23 18:28 | CONS ---
Assessment/Plan Assessment/Plan Assessment/Plan (Daily) 1. acute prerenal azotemia 2. Septic shock 3. right sided pneumothorax s/p R chest tube placement 4. acute hypoxemic respiratory failure intubated on ventilator 5. Metastatic prostate CA 6. Dysphagia s/p G tube placement Plan : Conitnue IV abx cefepime, Renally dose all abx and monitor electrolytes IVF LR at 70 cc/hr ,BUN/Cr 40/0.5, getting albumin 25% 100ml Q 8 hr x 3 doses Chest tube in case , pt will need Pleurax catheter to facilicate weanign process Pulmonary has been following for ventilator care ID following will follow up Consultation Date/Type/Reason Admit Date/Time Aug 17, 2018 at 09:51 Initial Consult Date 08/21/18 Type of Consult NEPHROLOGY Requesting Provider: SANIA WHITTINGTON MD Date/Time of Note DATE: 08/23/18 TIME: 18:28 24 HR Interval Summary Free Text/Dictation pt remains intuabted with FiO2 30%, BP stable Exam/Review of Systems Exam Vitals Vital Signs Date Temp Pulse Resp B/P (MAP) Pulse Ox O2 O2 Flow FiO2 Time Delivery Rate 08/23/18 88 24 100 30 17:22 08/23/18 107/56 Mechanical 13:00 (73) Ventilator 08/23/18 98.4 12:00 08/19/18 4.0 08:00 Intake and Output 08/22/18 08/22/18 08/23/18 1515:00 23:00 07:00 IntakeIntake Total 755.0 ml 890 ml 1350 ml OutputOutput Total 370 ml 280 ml 430 ml BalanceBalance 385.0 ml 610 ml 920 ml Exam Constitutional: non-verbal, frail, intubated on ventilator Respiratory: crackles/rales, diminished breath sounds Cardiovascular: other (tachycardic and regular) Gastrointestinal: soft, non-tender, other (+feeding tube) Genitourinary - Male: other (FC) Musculoskeletal: No swelling Extremities: pitting pedal edema Neurological: unresponsive Skin: rash or lesions (ecchymoses of b/l UE) Results Result Diagram: 08/23/18 0500 08/23/18 0500 Results 24hrs Laboratory Tests Test 08/22/18 20:21 08/23/18 01:00 08/23/18 05:00 08/23/18 05:29 Bedside Glucose 122 115 96 White Blood Count 2.7 #L Red Blood Count 2.67 #L Hemoglobin 7.6 #L Hematocrit 22.8 #L Mean Corpuscular 85.4 Volume Mean Corpuscular 28.5 L Hemoglobin Mean Corpuscular 33.3 Hemoglobin Concen t Red Cell 17.6 H Distribution Width Platelet Count 46 #L Mean Platelet Volume Immature 8.400 H Granulocytes % Neutrophils % Segmented 37 L Neutrophils % (Manual) Band Neutrophils 18 H % (Manual) Lymphocytes % Lymphocytes % 36 (Manual) Reactive 1 H Lymphocytes % (Manual) Monocytes % Monocytes % 3 (Manual) Eosinophils % Eosinophils % 3 (Manual) Basophils % Metamyelocytes % 1 H (manual) Myelocytes % 3 H (Manual) Nucleated Red 14 H Blood Cells % Immature 0.230 H Granulocytes # Neutrophils # Neutrophils # 1.0 L (Manual) Band Neutrophils 0.4 # Lymphocytes 0.9 (Manual) Lymphocytes # Reactive 0.0 Lymphocytes # Monocytes # Monocytes # 0.0 L (Manual) Eosinophils # Basophils # Metamyelocytes # 0.0 Myelocytes # 0.0 Nucleated Red Blood Cells # Toxic Granulation 3+ Platelet Estimate SIG DECREASED Giant Platelets 1 H Polychromasia 3+ Poikilocytosis 3+ Anisocytosis 1+ Microcytosis 1+ Spherocytes 1+ Target Cells 1+ Ovalocytes 2+ Sodium Level 137 Potassium Level 3.8 Chloride Level 110 Carbon Dioxide 24 Level Anion Gap 3 L Blood Urea 40 H Nitrogen Creatinine 0.50 L Est Glomerular Filtrat Rate mL/min Glucose Level 93 Calcium Level 7.7 L Phosphorus Level 2.1 L Total Bilirubin 0.4 Direct Bilirubin 0.00 Indirect 0.4 Bilirubin Aspartate Amino 171 H Transf (AST/SGOT) Alanine 44 Aminotransferase (ALT/SGPT) Alkaline 424 H Phosphatase Total Protein 4.5 L Albumin 2.1 L Globulin 2.40 Albumin/Globulin 0.87 Ratio Test 08/23/18 07:00 08/23/18 10:13 08/23/18 12:30 Blood Gas Blood arterial Specimen Source Arterial Blood 08/23/2018 7:10:37 Date Drawn AM Arterial Blood pH 7.467 H (Temp corrected) Arterial Blood 29.2 L pCO2 (Temp correct) Arterial Blood 116.5 H pO2 (Temp corrected) Arterial Blood 20.6 L HCO3 Arterial Blood -2.5 Base Excess Arterial Blood 97.8 Oxygen Saturation Jarod Test ACCEPTAB Arterial Blood Right Radial Gas Puncture Site Arterial 0.3 Blood Carboxyhemo globin Arterial Blood 0.5 Methemoglobin Blood Gas A-a O2 63.1 H Differential Oxyhemoglobin 97.0 Percent Blood Gas 37.0 Temperature Blood Gas 16.0 Respiration Rate Blood Gas Actual 18 Respiration Rate Blood Gas VENT - AC Modality FiO2 30.0 Blood Gas Tidal 450.0 Volume Blood Gas Low 5.0 PEEP Setting Blood Gas TM Notified Whom Blood Gas 08/23/2018 7:21:17 Notified Time AM Ammonia 13 Bedside Glucose 124 Medications Medication Current Medications Miscellaneous Information (Pending Santyl Order For Wound Care) This patient tabares... PRN PRN XX WOUND CARE; Start 08/16/18 at 20:00 Acetaminophen (Tylenol Tab) 500 mg Q4H PRN PO MILD PAIN(1-3)OR ELEVATED TEMP Last administered on 08/21/18 21:07; Admin Dose 500 MG; Start 08/16/18 at 20:00 Ascorbic Acid (Vitamin C) 500 mg BID GTB Last administered on 08/23/18 10:09; Admin Dose 500 MG; Start 08/16/18 at 21:00 Bicalutamide (Casodex) 50 mg DAILY PO ; Start 08/17/18 at 09:00; Status Hold Metoprolol Tartrate (Lopressor) 25 mg BID PO Last administered on 08/23/18 10:09; Admin Dose 25 MG; Start 08/17/18 at 21:00 Fish Oil (Fish Oil) 1,000 mg BID PO Last administered on 08/23/18 10:08; Admin Dose 1,000 MG; Start 08/18/18 at 14:00 Norepinephrine 250 ml @ 1.875 mls/ hr TITRATE IV Last administered on 08/19/18 11:59; Admin Dose 1.875 MLS/HR; Start 08/19/18 at 11:00 Albuterol (Ventolin Hfa) 4 puff Q4H RESP THERAPY INH Last administered on 08/23/18 17:17; Admin Dose 4 PUFF; Start 08/19/18 at 17:00 Ipratropium [place] (Atrovent Hfa) 4 puff Q4 INH Last administered on 5/2/19at 17:17; Admin Dose 4 PUFF; Start 08/19/18 at 17:00 Lactated Ringer's 1,000 ml @ 70 mls/hr [id number] IV Last administered on 08/23/18 05:23; Admin Dose 70 MLS/HR; Start 08/19/18 at 14:00 Phenylephrine HCl 40 mg/Dextrose 250 ml @ 37.5 mls/hr TITRATE IV Last administered on 08/22/18 00:09; Admin Dose 26.25 MLS/HR; Start 08/19/18 at 14:00 Methenamine (Hiprex) 1 gm BID GTB Last administered on 08/23/18 10:09; Admin Dose 1 GM; Start 08/20/18 at 21:00 Prenat Multivit/ [place]/Iron/Folic Ac () 1 tab DAILY GTB Last administered on 08/23/18 10:09; Admin Dose 1 TAB; Start 08/21/18 at 09:00 Zinc Sulfate (Zinc Sulfate) 220 mg DAILY GTB Last administered on 08/23/18 10:08; Admin Dose 220 MG; Start 08/21/18 at 09:00 Finasteride (Proscar) 5 mg DAILY GTB Last administered on 08/23/18 10:09; Admin Dose 5 MG; Start 08/20/18 at 10:00 Morphine Sulfate (morphine) 1 mg Q4H PRN IV SEVERE PAIN LEVEL 7-10; Start 08/21/18 at 12:00 Cefepime HCl 50 ml @ 100 mls/hr Q12 IVPB Last administered on 08/23/18 10:07; Admin Dose 100 MLS/HR; Start 08/21/18 at 14:27 Albumin Human 100 ml @ 100 mls/hr Q8H IV Last administered on 08/23/18 12:33; Admin Dose 100 MLS/HR; Start 08/23/18 at 11:00; Stop 08/24/18 at 03:59 Potassium Phosphate 20 meq/ Sodium Chloride 254.5455 ml @ 63.636 m... ONCE ONCE IVPB Last administered on 08/23/18 15:40; Admin Dose 63.636 MLS/HR; Start 08/23/18 at 14:30; Stop 08/23/18 at 18:29 CELIA KUMAR MD August 23, 2018 18:28
--- NOTE | 2018-08-23 19:50 | CONS ---
Assessment/Plan Assessment/Plan Assessment/Plan (Daily) Respiratory failure Metastatic prostate cancer Patient has a pleural effusion on the left side which is mild to moderate He also has severe coagulopathy and thrombocytopenia INR is 1.7 platelet count 45 PTT 43 and is severely anemic with a hemoglobin of 7 Patient should have coagulopathy and thrombocytopenia corrected prior to a possible chest tube versus thoracentesis If family wants to minimal procedure to be done which may be a thoracentesis will discussed with the referring physicians after coagulopathy has thrombocytopenia as correct Consultation Date/Type/Reason Admit Date/Time Aug 17, 2018 at 09:51 Date of Consultation: August 23, 2018 Type of Consult 87-year-old male with a history of metastatic prostate cancer admitted for a G- tube placement subsequently was found to have a right-sided pleural effusion underwent a thoracentesis patient was found to have a pneumothorax the chest tube has been placed patient has not been intubated for about 4 days has moderate amount of pleural effusion on the left side unable to come off the ventilator secondary to infiltrates cachexia advanced cancer and pleural effusi on Date/Time of Note DATE: 08/23/18 TIME: 19:48 Past Medical History Medical History: high cholesterol, hypertension Home Meds Reported Medications [Pomi-T] No Conflict Check 08/16/18 Multivitamin/Iron/Folic Acid (Centrum Adults Tablet) 1 Each Tablet, 1 EACH PO, TAB 08/16/18 Dutasteride* (Avodart*) 0.5 Mg Capsule, 0.5 MG PO DAILY, CAP 08/16/18 Bicalutamide* (Bicalutamide*) 50 Mg Tablet, 50 MG PO DAILY, TAB 08/16/18 Sodium Chloride (Sodium Chloride) 1 Gm Granules, 1 GM MC 08/16/18 Vitamin E* (Vitamin E*) 200 Unit Capsule, 180 MG PO DAILY, CAP 08/16/18 Folic Acid* (Folic Acid*) 1 Mg Tablet, 1 MG PO DAILY, TAB 08/16/18 Memantine* (Namenda* XR) 28 Mg Cap.spr.24, 28 MG PO DAILY, #30 TAB 08/16/18 Tamsulosin Hcl* (Flomax*) 0.4 Mg Cap.er.24h, 0.4 MG PO DAILY, CAP 08/16/18 Nitrofurantoin Monohyd Macrocr* (Macrobid*) 100 Mg Capsr, 100 MG PO BID, CAP 08/16/18 Medications Current Medications Miscellaneous Information (Pending Santyl Order For Wound Care) This patient tabares... PRN PRN XX WOUND CARE; Start 08/16/18 at 20:00 Acetaminophen (Tylenol Tab) 500 mg Q4H PRN PO MILD PAIN(1-3)OR ELEVATED TEMP Last administered on 08/21/18 21:07; Admin Dose 500 MG; Start 08/16/18 at 20:00 Ascorbic Acid (Vitamin C) 500 mg BID GTB Last administered on 08/23/18 10:09; Admin Dose 500 MG; Start 08/16/18 at 21:00 Bicalutamide (Casodex) 50 mg DAILY PO ; Start 08/17/18 at 09:00; Status Hold Metoprolol Tartrate (Lopressor) 25 mg BID PO Last administered on 08/23/18 10:09; Admin Dose 25 MG; Start 08/17/18 at 21:00 Fish Oil (Fish Oil) 1,000 mg BID PO Last administered on 08/23/18 10:08; Admin Dose 1,000 MG; Start 08/18/18 at 14:00 Norepinephrine 250 ml @ 1.875 mls/ hr TITRATE IV Last administered on 08/19/18 11:59; Admin Dose 1.875 MLS/HR; Start 08/19/18 at 11:00 Albuterol (Ventolin Hfa) 4 puff Q4H RESP THERAPY INH Last administered on 08/23/18 17:17; Admin Dose 4 PUFF; Start 08/19/18 at 17:00 Ipratropium [place] (Atrovent Hfa) 4 puff Q4 INH Last administered on 08/23/18 17:17; Admin Dose 4 PUFF; Start 08/19/18 at 17:00 Lactated Ringer's 1,000 ml @ 70 mls/hr [id number] IV Last administered on 08/23/18 05:23; Admin Dose 70 MLS/HR; Start 08/19/18 at 14:00 Phenylephrine HCl 40 mg/Dextrose 250 ml @ 37.5 mls/hr TITRATE IV Last administered on 08/22/18 00:09; Admin Dose 26.25 MLS/HR; Start 08/19/18 at 14:00 Methenamine (Hiprex) 1 gm BID GTB Last administered on 08/23/18 10:09; Admin Dose 1 GM; Start 08/20/18 at 21:00 Prenat Multivit/ [place]/Iron/Folic Ac () 1 tab DAILY GTB Last administered on 08/23/18 10:09; Admin Dose 1 TAB; Start 08/21/18 at 09:00 Zinc Sulfate (Zinc Sulfate) 220 mg DAILY GTB Last administered on 08/23/18 10:08; Admin Dose 220 MG; Start 08/21/18 at 09:00 Finasteride (Proscar) 5 mg DAILY GTB Last administered on 08/23/18 10:09; Admin Dose 5 MG; Start 08/20/18 at 10:00 Morphine Sulfate (morphine) 1 mg Q4H PRN IV SEVERE PAIN LEVEL 7-10; Start 08/21/18 at 12:00 Cefepime HCl 50 ml @ 100 mls/hr Q12 IVPB Last administered on 08/23/18at 10:07; Admin Dose 100 MLS/HR; Start 08/21/18 at 14:27 Albumin Human 100 ml @ 100 mls/hr Q8H IV Last administered on 08/23/18 12:33; Admin Dose 100 MLS/HR; Start 08/23/18 at 11:00; Stop 08/24/18 at 03:59 Phytonadione (Vitamin K) 5 mg ONCE ONCE SC ; Start 08/23/18 at 20:00; Stop 08/23/18 at 20:01; Status UNV Phytonadione (Vitamin K) 5 mg ONCE ONCE SC ; Start 08/24/18 at 09:00; Stop 08/24/18 at 09:01; Status UNV Allergies: Coded Allergies: No Known Allergy (Unverified , 08/16/18) Past Surgical History Past Surgical Hx: other (+ tracheostomy, G tube ) Social History Alcohol Use: none Smoking Status: Never smoker Drug Use: none Exam/Review of Systems Exam Vitals Vital Signs Date Temp Pulse Resp B/P (MAP) Pulse Ox O2 O2 Flow FiO2 Time Delivery Rate 08/23/18 94 26 100 30 19:32 08/23/18 107/56 Mechanical 13:00 (73) Ventilator 08/23/18 98.4 12:00 08/19/18 4.0 08:00 Intake and Output 08/22/18 08/22/18 08/23/18 1414:59 22:59 06:59 IntakeIntake Total 800.0 ml 900 ml 1390 ml OutputOutput Total 380 ml 275 ml 460 ml BalanceBalance 420.0 ml 625 ml 930 ml ENMT: nl external ears & nose, nl lips & teeth, nl nasal mucosa & septum Neck: supple, non-tender Gastrointestinal: soft, nl liver, spleen, non-tender Extremities: normal pulses Results Result Diagram: 08/23/18 0500 08/23/18 0500 Results 24hrs Laboratory Tests Test 08/22/18 20:21 08/23/18 01:00 08/23/18 05:00 08/23/18 05:29 Bedside Glucose 122 115 96 White Blood Count 2.7 #L Red Blood Count 2.67 #L Hemoglobin 7.6 #L Hematocrit 22.8 #L Mean Corpuscular 85.4 Volume Mean Corpuscular 28.5 L Hemoglobin Mean Corpuscular 33.3 Hemoglobin Concen t Red Cell 17.6 H Distribution Width Platelet Count 46 #L Mean Platelet Volume Immature 8.400 H Granulocytes % Neutrophils % Segmented 37 L Neutrophils % (Manual) Band Neutrophils 18 H % (Manual) Lymphocytes % Lymphocytes % 36 (Manual) Reactive 1 H Lymphocytes % (Manual) Monocytes % Monocytes % 3 (Manual) Eosinophils % Eosinophils % 3 (Manual) Basophils % Metamyelocytes % 1 H (manual) Myelocytes % 3 H (Manual) Nucleated Red 14 H Blood Cells % Immature 0.230 H Granulocytes # Neutrophils # Neutrophils # 1.0 L (Manual) Band Neutrophils 0.4 # Lymphocytes 0.9 (Manual) Lymphocytes # Reactive 0.0 Lymphocytes # Monocytes # Monocytes # 0.0 L (Manual) Eosinophils # Basophils # Metamyelocytes # 0.0 Myelocytes # 0.0 Nucleated Red Blood Cells # Toxic Granulation 3+ Platelet Estimate SIG DECREASED Giant Platelets 1 H Polychromasia 3+ Poikilocytosis 3+ Anisocytosis 1+ Microcytosis 1+ Spherocytes 1+ Target Cells 1+ Ovalocytes 2+ Sodium Level 137 Potassium Level 3.8 Chloride Level 110 Carbon Dioxide 24 Level Anion Gap 3 L Blood Urea 40 H Nitrogen Creatinine 0.50 L Est Glomerular Filtrat Rate mL/min Glucose Level 93 Calcium Level 7.7 L Phosphorus Level 2.1 L Total Bilirubin 0.4 Direct Bilirubin 0.00 Indirect 0.4 Bilirubin Aspartate Amino 171 H Transf (AST/SGOT) Alanine 44 Aminotransferase (ALT/SGPT) Alkaline 424 H Phosphatase Total Protein 4.5 L Albumin 2.1 L Globulin 2.40 Albumin/Globulin 0.87 Ratio Test 08/23/18 07:00 08/23/18 10:13 08/23/18 12:30 Blood Gas Blood arterial Specimen Source Arterial Blood 08/23/2018 7:10:37 Date Drawn AM Arterial Blood pH 7.467 H (Temp corrected) Arterial Blood 29.2 L pCO2 (Temp correct) Arterial Blood 116.5 H pO2 (Temp corrected) Arterial Blood 20.6 L HCO3 Arterial Blood -2.5 Base Excess Arterial Blood 97.8 Oxygen Saturation Jarod Test ACCEPTAB Arterial Blood Right Radial Gas Puncture Site Arterial 0.3 Blood Carboxyhemo globin Arterial Blood 0.5 Methemoglobin Blood Gas A-a O2 63.1 H Differential Oxyhemoglobin 97.0 Percent Blood Gas 37.0 Temperature Blood Gas 16.0 Respiration Rate Blood Gas Actual 18 Respiration Rate Blood Gas VENT - AC Modality FiO2 30.0 Blood Gas Tidal 450.0 Volume Blood Gas Low 5.0 PEEP Setting Blood Gas TM Notified Whom Blood Gas 08/23/2018 7:21:17 Notified Time AM Ammonia 13 Bedside Glucose 124 Medications Medication Current Medications Miscellaneous [facility] This patient tabares... PRN PRN XX WOUND CARE; Start 08/16/18 at 20:00 Acetaminophen (Tylenol Tab) 500 mg Q4H PRN PO MILD PAIN(1-3)OR ELEVATED TEMP Last administered on 08/21/18at 21:07; Admin Dose 500 MG; Start 08/16/18 at 20:00 Ascorbic Acid (Vitamin C) 500 mg BID GTB Last administered on 08/23/18at 10:09; Admin Dose 500 MG; Start 08/16/18 at 21:00 Bicalutamide (Casodex) 50 mg DAILY PO ; Start 08/17/18 at 09:00; Status Hold Metoprolol Tartrate (Lopressor) 25 mg BID PO Last administered on 08/23/18at 10:09; Admin Dose 25 MG; Start 08/17/18 at 21:00 Fish Oil (Fish Oil) 1,000 mg BID PO Last administered on 08/23/18 10:08; Admin Dose 1,000 MG; Start 08/18/18 at 14:00 Norepinephrine 250 ml @ 1.875 mls/ hr TITRATE IV Last administered on 08/19/18 11:59; Admin Dose 1.875 MLS/HR; Start 08/19/18 at 11:00 Albuterol (Ventolin Hfa) 4 puff Q4H RESP THERAPY INH Last administered on 08/23/18 17:17; Admin Dose 4 PUFF; Start 08/19/18 at 17:00 Ipratropium [place] (Atrovent Hfa) 4 puff Q4 INH Last administered on 08/23/18 17:17; Admin Dose 4 PUFF; Start 08/19/18 at 17:00 Lactated Ringer's 1,000 ml @ 70 mls/hr [id number] IV Last administered on 08/23/18 05:23; Admin Dose 70 MLS/HR; Start 08/19/18 at 14:00 Phenylephrine HCl 40 mg/Dextrose 250 ml @ 37.5 mls/hr TITRATE IV Last administered on 08/22/18 00:09; Admin Dose 26.25 MLS/HR; Start 08/19/18 at 14:00 Methenamine (Hiprex) 1 gm BID GTB Last administered on 08/23/18 10:09; Admin Dose 1 GM; Start 08/20/18 at 21:00 Prenat Multivit/ [place]/Iron/Folic Ac () 1 tab DAILY GTB Last administered on 08/23/18 10:09; Admin Dose 1 TAB; Start 08/21/18 at 09:00 Zinc Sulfate (Zinc Sulfate) 220 mg DAILY GTB Last administered on 08/23/18 10:08; Admin Dose 220 MG; Start 08/21/18 at 09:00 Finasteride (Proscar) 5 mg DAILY GTB Last administered on 08/23/18 10:09; Admin Dose 5 MG; Start 08/20/18 at 10:00 Morphine Sulfate (morphine) 1 mg Q4H PRN IV SEVERE PAIN LEVEL 7-10; Start 08/21/18 at 12:00 Cefepime HCl 50 ml @ 100 mls/hr Q12 IVPB Last administered on 08/23/18 10:07; Admin Dose 100 MLS/HR; Start 08/21/18 at 14:27 Albumin Human 100 ml @ 100 mls/hr Q8H IV Last administered on 08/23/18at 12:33; Admin Dose 100 MLS/HR; Start 08/23/18 at 11:00; Stop 08/24/18 at 03:59 Phytonadione (Vitamin K) 5 mg ONCE ONCE SC ; Start 08/23/18 at 20:00; Stop 08/23/18 at 20:01; Status UNV Phytonadione (Vitamin K) 5 mg ONCE ONCE SC ; Start 08/24/18 at 09:00; Stop 08/24/18 at 09:01; Status UNV MARY CARMEN GREER MD August 23, 2018 19:50
[2018-08-23] MEDS ORDERED: PHYTONADIONE 10 MG/ML INJ SC ONE (20:00)
--- NOTE | 2018-08-23 21:39 | PN ---
DATE: 08/23/2018 SUBJECTIVE AND INTERVAL HISTORY: Follow up on respiratory failure, metastatic prostate cancer, pancy topenia, UTI, possible pneumonia, pneumothorax, pleural effusion. The patient since yesterday has he modynamically remained stable, did not have any temperature spike. No reported bleeding from any sit e. No reported leg edema. No reported vomiting. The patient is tolerating G-tube feeding. The pat ient did have a slightly low urine output yesterday, but the patient was given IV fluid bolus and had 1975 mL of urine output. PHYSICAL EXAMINATION: GENERAL: The patient to be lethargic but intermittently opens eyes. VITAL SIGNS: Temperature 97.8, pulse 90, respiration 20, blood pressure 108/50, O2 saturation 100% o n FIO2 of 30%. The patient is currently on full mechanical vent support. The patient failed CPAP tr ial. HEENT: No eye discharge or redness. Conjunctivae and lids are normal. Nose is normal. Oropharynx examination could not be done due to intubation. NECK: No mass or JVD. CHEST: Diminished air entry bilaterally. CARDIOVASCULAR: Currently, the patient is on sinus rhythm. No murmur. ABDOMEN: Soft, G-tube in place, nondistended. EXTREMITIES: No edema. NEUROLOGIC: The patient is lethargic with generalized muscle atrophy due to chronic debility. LABORATORY DATA: Done this morning, WBC 2.7, down from 4.4; hemoglobin 7.6, down from 10.1; platelet 43, down from 72; bands 18% now, down from 22%. Chemistry revealed sodium 137, potassium 3.8, BUN 4 0, creatinine 0.5; phosphate 2.1, up from 1.8. Chest x-ray done today revealed a stable right chest tube with stable trace right apical pneumothorax , stable well-infiltrated both lungs, left greater than right with small left pleural effusion. IMPRESSION: 1. Acute respiratory failure. Continue vent support. The patient has failed multiple weaning trial s. Continue breathing treatment. Plan is to attempt a PleurX catheter and then remove chest tube an d then resume weaning trials. 2. Possible pneumonia and urinary tract infection. Continue IV cefepime. 3. Metastatic prostate cancer, poor prognosis. Continue Casodex. 4. Dysphagia. Continue G-tube feeding. 5. Mildly elevated BUN. The patient's IV fluid rate had been increased. The patient has a preserve d ejection fraction on echocardiogram. The patient remains critically ill. I met with the patient's son and daughter and goals of care discussed with them in detail including code status, hospice care and comfort care. They recommended to continue weaning trial and continue current treatment. They do not want DNR at this time, but we will discuss with the family members. We will continue current treatment with supportive care. Approximately 30 minutes were spent with discussion of goals of care with multiple family members. Dictated By: SANIA WHITTINGTON MD AB/NTS Conf#: [id number] DID#: [id number] CC: AILIN RUEDA MD;*EndCC*
[2018-08-24] VITALS (45 sets, daily range): BP systolic 99–127; BP diastolic 43–69; PULSE 71–100; RESP 17–26
[2018-08-24] MEDS ORDERED: FUROSEMIDE 20 MG INJ IV ONE (01:00)
[2018-08-24] MEDS: ALBUTEROL HFA 8 GM INHALER INH SCH ×6 (01:39→21:43)
[2018-08-24] MEDS: IPRATROPIUM (HFA) 12.9 GM INHALER INH SCH ×6 (01:39→21:43)
[2018-08-24] MEDS: ALBUMIN HUMAN 25% 100 ML IV SCH (03:01)
[2018-08-24] MEDS: LACTATED RINGER'S 1,000 ML IV SCH ×2 (08:15→17:17)
[2018-08-24] MEDS ORDERED: PHYTONADIONE 10 MG/ML INJ SC ONE (09:00)
--- NOTE | 2018-08-24 09:22 | CONS ---
Assessment/Plan Assessment/Plan Assessment/Plan (Daily) Ventilator setting; AC of 20, tidal volume 450, PEEP of 5, 35% FiO2. Patient is currently on Levophed 3 mics per minute. Assessment and recommendations; 1. Patient admitted with hypoxemia with large bilateral pleural effusions which are likely malignant in etiology due to extensive metastatic prostate cancer. With multiple liver and lung lesions. 2. Status post placement of right chest tube 3. Right pneumothorax. 4. Large left pleural effusion. 5. Anemia and severe thrombocytopenia. 6. Persistent shock. 7. Difficult to rule out superimposed pneumonia. Obtain ultrasound-guided left thoracentesis. Patient's family likely want him to be extubated and to take him home on hospice. I did have a lengthy discussion with the patient's children at bedside and answered all their questions. Prognosis is extremely poor. 35 minutes of critical care time was spent evaluating the patient. Consultation Date/Type/Reason Admit Date/Time Aug 17, 2018 at 09:51 Initial Consult Date 08/21/18 Type of Consult Pulmonary Patient is an 87-year-old gentleman who was brought into the hospital because of failure to thrive. Upon further evaluation of chest x-ray was done which is showing bilateral pleural effusions subsequently confirmed by CT of the chest. The patient has advanced dementia and was unable to give any history by himself whatsoever. History was obtained from medical records as well as from patient's son who is an anesthesiologist at the hospital according to the patient's son patient is having significant clinical decline with failure to thrive as well as bedridden state. Patient also exhibiting advanced dementia. By the time I saw the patient, patient is lying comfortably in bed and did not appear to be in any distress. Past medical history; 1. History of metastatic prostate cancer. Status post hormone treatment with the patient could not continue because of side effects. 2. Pancytopenia, likely related to bone marrow involvement by prostate cancer. 3. Advanced dementia. Medications; reviewed. Allergies; none. Family history; noncontributory. Review of systems; unable to be obtained. General exam; elderly male, laying comfortably in bed. Currently no distress. Awake but noncommunicative. Requesting Provider: SANIA WHITTINGTON MD Date/Time of Note DATE: 08/24/18 TIME: 24 HR Interval Summary Free Text/Dictation Patient's condition remains critical. General exam; elderly male, orally intubated, awake but noncommunicative. Currently no distress. Exam/Review of Systems Exam Vitals Vital Signs Date Temp Pulse Resp B/P (MAP) Pulse Ox O2 O2 Flow FiO2 Time Delivery Rate 08/24/18 82 19 113/54 100 Mechanical 06:00 (73) Ventilator 08/24/18 30 05:29 08/24/18 98.5 04:00 Intake and Output 08/23/18 08/23/18 08/24/18 1414:59 22:59 06:59 IntakeIntake Total 1220 ml 1394.5455 ml 2010 ml OutputOutput Total 305 ml 880 ml 2095 ml BalanceBalance 915 ml 514.5455 ml -85 ml Exam H EENT exam; supple neck, no JVD. No lymphadenopathy. Midline trachea. No thyromegaly. Orally intubated. No neck masses. Chest exam; diminished breath sounds bilaterally. Right-sided chest tube in place. S1-S2 audible, no murmurs. Abdomen exam; soft, no organomegaly. G-tube in place. Bowel sounds audible. Extremity exam; no peripheral edema clubbing. 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 Results Result Diagram: 08/24/18 0446 08/24/18 0446 Results 24hrs Laboratory Tests Test 08/23/18 10:13 08/23/18 12:30 08/23/18 19:59 08/24/18 04:46 Ammonia 13 Bedside Glucose 124 Prothrombin Time 15.0 H 15.1 H Prothrombin Time 1.2 1.2 Ratio INR International 1.17 1.18 Normalized Ratio Activated 38.7 H 35.0 Partial Thromboplas t Time White Blood Count 3.0 L Red Blood Count 2.25 L Hemoglobin 6.5 *L Hematocrit 19.2 L Mean Corpuscular 85.3 Volume Mean Corpuscular 28.9 L Hemoglobin Mean Corpuscular 33.9 Hemoglobin Concent Red Cell 17.6 H Distribution Width Platelet Count 74 #L Mean Platelet 11.1 H Volume Immature 12.800 H Granulocytes % Neutrophils % Segmented 37 L Neutrophils % (Manual) Band Neutrophils % 17 H (Manual) Lymphocytes % Lymphocytes % 42 (Manual) Monocytes % Monocytes % 1 (Manual) Eosinophils % Basophils % Metamyelocytes % 2 H (manual) Myelocytes % 1 H (Manual) Nucleated Red Blood 19 H Cells % Immature 0.380 H Granulocytes # Neutrophils # Neutrophils # 1.1 L (Manual) Band Neutrophils # 0.5 Lymphocytes 1.2 (Manual) Lymphocytes # Monocytes # Monocytes # 0.0 L (Manual) Eosinophils # Basophils # Metamyelocytes # 0.0 Myelocytes # 0.0 Nucleated Red Blood Cells # Platelet Estimate DECREASED Polychromasia 3+ Hypochromasia 1+ Poikilocytosis 1+ Anisocytosis 1+ Spherocytes 1+ Sodium Level 143 Potassium Level 3.3 L Chloride Level 110 Carbon Dioxide 26 Level Anion Gap 7 Blood Urea Nitrogen 32 H Creatinine 0.40 L Est Glomerular Filtrat Rate mL/min Glucose Level 89 Calcium Level 8.1 L Phosphorus Level 2.1 L Total Bilirubin 0.8 Direct Bilirubin 0.00 Indirect Bilirubin 0.8 Aspartate Amino 106 H Transf (AST/SGOT) Alanine 47 Aminotransferase (A LT/SGPT) Alkaline 335 H Phosphatase Total Protein 5.2 L Albumin 3.0 L Globulin 2.20 Albumin/Globulin 1.36 Ratio Test 08/24/18 04:57 Lab Scanned Report BLOOD TRANSFUSION Medications Medication Current Medications Miscellaneous Information (Pending [facility] Order For Wound Care) This patient tabares... PRN PRN XX WOUND CARE; Start 08/16/18 at 20:00 Acetaminophen (Tylenol Tab) 500 mg Q4H PRN PO MILD PAIN(1-3)OR ELEVATED TEMP Last administered on 08/21/18at 21:07; Admin Dose 500 MG; Start 08/16/18 at 20:00 Ascorbic Acid (Vitamin C) 500 mg BID GTB Last administered on 08/23/18at 20:15; Admin Dose 500 MG; Start 08/16/18 at 21:00 Bicalutamide (Casodex) 50 mg DAILY PO ; Start 08/17/18 at 09:00; Status Hold Metoprolol Tartrate (Lopressor) 25 mg BID PO Last administered on 08/23/18 20:15; Admin Dose 25 MG; Start 08/17/18 at 21:00 Fish Oil (Fish Oil) 1,000 mg BID PO Last administered on 08/23/18at 20:14; Admin Dose 1,000 MG; Start 08/18/18 at 14:00 Norepinephrine 250 ml @ 1.875 mls/ hr TITRATE IV Last administered on 08/19/18 11:59; Admin Dose 1.875 MLS/HR; Start 08/19/18 at 11:00 Albuterol (Ventolin Hfa) 4 puff Q4H RESP THERAPY INH Last administered on 08/24/18 05:28; Admin Dose 4 PUFF; Start 08/19/18 at 17:00 Ipratropium [place] (Atrovent Hfa) 4 puff Q4 INH Last administered on 08/24/18 05:28; Admin Dose 4 PUFF; Start 08/19/18 at 17:00 Lactated Ringer's 1,000 ml @ 70 mls/hr [id number] IV Last administered on 08/23/18 19:54; Admin Dose 70 MLS/HR; Start 08/19/18 at 14:00 Phenylephrine HCl 40 mg/Dextrose 250 ml @ 37.5 mls/hr TITRATE IV Last administered on 08/22/18 00:09; Admin Dose 26.25 MLS/HR; Start 08/19/18 at 14:00 Methenamine (Hiprex) 1 gm BID GTB Last administered on 08/23/18 20:14; Admin Dose 1 GM; Start 08/20/18 at 21:00 Prenat Multivit/ [place]/Iron/Folic Ac () 1 tab DAILY GTB Last administered on 08/23/18 10:09; Admin Dose 1 TAB; Start 08/21/18 at 09:00 Zinc Sulfate (Zinc Sulfate) 220 mg DAILY GTB Last administered on 08/23/18 10:08; Admin Dose 220 MG; Start 08/21/18 at 09:00 Finasteride (Proscar) 5 mg DAILY GTB Last administered on 08/23/18 10:09; Admin Dose 5 MG; Start 08/20/18 at 10:00 Morphine Sulfate (morphine) 1 mg Q4H PRN IV SEVERE PAIN LEVEL 7-10; Start 08/21/18 at 12:00 Cefepime HCl 50 ml @ 100 mls/hr Q12 IVPB Last administered on 08/23/18 20:15; Admin Dose 100 MLS/HR; Start 08/21/18 at 14:27 LATISHA RAM August 24, 2018 09:22
--- NOTE | 2018-08-24 10:17 | CONS ---
Assessment/Plan Assessment/Plan Hospital Course (Demo Recall) IMPRESSION: 1. Abnormal electrocardiogram, assess for acute coronary syndrome.-neg trop x 2. NL EF by echo this admit 2. Cardiac arrhythmia at this time, most consistent with sinus arrhythmia.-mild tachycardia, sinus arrythmia. NL TSH- now with increased S tachycardia today-? due to pain/resp distress/anxiety/hypotension 3. Hypotension-now off neosynephrine 4. Dysphagia, status post PEG placement today. 5. Failure to thrive. 6. History of prostate carcinoma. 7. History of aplastic anemia-currently improved 8. Hypernatremia. 10. Pancytopenia-currently overall improved Hgb 11. Resp failure s/p intubation 12. Pleural effusion s/p thoracentesis c/b PTX with CT now 14. PNA Recc: -Now in ICU -serial ecg's -follow Hgb closely and transfuse as necessary -Continue avodart -Follow CT output -Continue abx's and f/u cx data -Follow volume status -Follow HR/BP closely -s/p albumin infusion x 2 -toleratiing low dose BB Consultation Date/Type/Reason Admit Date/Time Aug 17, 2018 at 09:51 Initial Consult Date 08/17/18 Type of Consult Cardiology Reason for Consultation tachycardia Requesting Provider: SANIA WHITTINGTON MD Date/Time of Note DATE: 08/24/18 TIME: 10:14 Exam/Review of Systems Vital Signs Vitals Vital Signs Date Temp Pulse Resp B/P (MAP) Pulse Ox O2 O2 Flow FiO2 Time Delivery Rate 08/24/18 76 08:00 08/24/18 19 113/54 100 Mechanical 06:00 (73) Ventilator 08/24/18 30 05:29 08/24/18 98.5 04:00 Intake and Output 08/23/18 08/23/18 08/24/18 1515:00 23:00 07:00 IntakeIntake Total 1220 ml 1334.5455 ml 1950 ml OutputOutput Total 305 ml 930 ml 2045 ml BalanceBalance 915 ml 404.5455 ml -95 ml Exam Exam Review of Systems: CONSTITUTIONAL: No fevers, chills. PULMONARY: No sob CARDIOVASCULAR: No chest pain/palpitations GASTROINTESTINAL: No nausea/vomiting. GENITOURINARY: No hematuria/dysuria. MUSCULOSKELETAL: No myagias/arthalgias. PSYCHIATRIC: The patient denies depression. NEUROLOGIC: encephalopathic Constitutional: other (encephalopathic) Psych: no complaints Head: normocephalic ENMT: mucosa pink and moist Neck: supple, jvd (9 cm water) Respiratory: diminished breath sounds (at bases/B) Cardiovascular: regular rate and rhythm Gastrointestinal: soft, non-tender Musculoskeletal: muscle tone (normal) Extremities: pitting pedal edema (bilateral) Neurological: other (No focal deficits) Labs Result Diagram: 08/24/18 0446 08/24/18 0446 Results 24hrs Laboratory Tests Test 08/23/18 12:30 08/23/18 19:59 08/24/18 04:46 08/24/18 04:57 Bedside Glucose 124 Prothrombin Time 15.0 H 15.1 H Prothrombin Time 1.2 1.2 Ratio INR International 1.17 1.18 Normalized Ratio Activated 38.7 H 35.0 Partial Thromboplas t Time White Blood Count 3.0 L Red Blood Count 2.25 L Hemoglobin 6.5 *L Hematocrit 19.2 L Mean Corpuscular 85.3 Volume Mean Corpuscular 28.9 L Hemoglobin Mean Corpuscular 33.9 Hemoglobin Concent Red Cell 17.6 H Distribution Width Platelet Count 74 #L Mean Platelet 11.1 H Volume Immature 12.800 H Granulocytes % Neutrophils % Segmented 37 L Neutrophils % (Manual) Band Neutrophils % 17 H (Manual) Lymphocytes % Lymphocytes % 42 (Manual) Monocytes % Monocytes % 1 (Manual) Eosinophils % Basophils % Metamyelocytes % 2 H (manual) Myelocytes % 1 H (Manual) Nucleated Red Blood 19 H Cells % Immature 0.380 H Granulocytes # Neutrophils # Neutrophils # 1.1 L (Manual) Band Neutrophils # 0.5 Lymphocytes 1.2 (Manual) Lymphocytes # Monocytes # Monocytes # 0.0 L (Manual) Eosinophils # Basophils # Metamyelocytes # 0.0 Myelocytes # 0.0 Nucleated Red Blood Cells # Platelet Estimate DECREASED Polychromasia 3+ Hypochromasia 1+ Poikilocytosis 1+ Anisocytosis 1+ Spherocytes 1+ Sodium Level 143 Potassium Level 3.3 L Chloride Level 110 Carbon Dioxide 26 Level Anion Gap 7 Blood Urea Nitrogen 32 H Creatinine 0.40 L Est Glomerular Filtrat Rate mL/min Glucose Level 89 Calcium Level 8.1 L Phosphorus Level 2.1 L Total Bilirubin 0.8 Direct Bilirubin 0.00 Indirect Bilirubin 0.8 Aspartate Amino 106 H Transf (AST/SGOT) Alanine 47 Aminotransferase (A LT/SGPT) Alkaline 335 H Phosphatase Total Protein 5.2 L Albumin 3.0 L Globulin 2.20 Albumin/Globulin 1.36 Ratio Lab Scanned Report BLOOD TRANSFUSION Medications Medications Current Medications Miscellaneous Information (Pending Santyl Order For Wound Care) This patient tabares... PRN PRN XX WOUND CARE; Start 08/16/18 at 20:00 Acetaminophen (Tylenol Tab) 500 mg Q4H PRN PO MILD PAIN(1-3)OR ELEVATED TEMP Last administered on 08/21/18 21:07; Admin Dose 500 MG; Start 08/16/18 at 20:00 Ascorbic Acid (Vitamin C) 500 mg BID GTB Last administered on 08/23/18 20:15; Admin Dose 500 MG; Start 08/16/18 at 21:00 Bicalutamide (Casodex) 50 mg DAILY PO ; Start 08/17/18 at 09:00; Status Hold Metoprolol Tartrate (Lopressor) 25 mg BID PO Last administered on 08/23/18 20:15; Admin Dose 25 MG; Start 08/17/18 at 21:00 Fish Oil (Fish Oil) 1,000 mg BID PO Last administered on 08/23/18 20:14; Admin Dose 1,000 MG; Start 08/18/18 at 14:00 Norepinephrine 250 ml @ 1.875 mls/ hr TITRATE IV Last administered on 08/19/18 11:59; Admin Dose 1.875 MLS/HR; Start 08/19/18 at 11:00 Albuterol (Ventolin Hfa) 4 puff Q4H RESP THERAPY INH Last administered on 08/24/18 09:41; Admin Dose 4 PUFF; Start 08/19/18 at 17:00 Ipratropium [place] (Atrovent Hfa) 4 puff Q4 INH Last administered on 08/24/18 09:41; Admin Dose 4 PUFF; Start 08/19/18 at 17:00 Lactated Ringer's 1,000 ml @ 70 mls/hr [id number] IV Last administered on 08/23/18 19:54; Admin Dose 70 MLS/HR; Start 08/19/18 at 14:00 Phenylephrine HCl 40 mg/Dextrose 250 ml @ 37.5 mls/hr TITRATE IV Last administered on 08/22/18at 00:09; Admin Dose 26.25 MLS/HR; Start 08/19/18 at 14:00 Methenamine (Hiprex) 1 gm BID GTB Last administered on 08/23/18 20:14; Admin Dose 1 GM; Start 08/20/18 at 21:00 Prenat Multivit/ [employer]/Iron/Folic Ac () 1 tab DAILY GTB Last administered on 08/23/18 10:09; Admin Dose 1 TAB; Start 08/21/18 at 09:00 Zinc Sulfate (Zinc Sulfate) 220 mg DAILY GTB Last administered on 08/23/18 10:08; Admin Dose 220 MG; Start 08/21/18 at 09:00 Finasteride (Proscar) 5 mg DAILY GTB Last administered on 08/23/18 10:09; Admin Dose 5 MG; Start 08/20/18 at 10:00 Morphine Sulfate (morphine) 1 mg Q4H PRN IV SEVERE PAIN LEVEL 7-10; Start 08/21/18 at 12:00 Cefepime HCl 50 ml @ 100 mls/hr Q12 IVPB Last administered on 08/23/18 20:15; Admin Dose 100 MLS/HR; Start 08/21/18 at 14:27 LUIS ALBERTO EDWARD August 24, 2018 10:17
--- NOTE | 2018-08-24 10:19 | PN ---
Date/Time of Note Date/Time of Note DATE: 08/24/18 TIME: 10:16 Assessment/Plan Lines/Catheters IV Catheter Type (from Nrsg): Central Line Villanueva in Place (from Nrsg): Yes Assessment/Plan Assessment/Plan Respiratory failure Lateral pleural effusions Chest tube draining about 2 to 300 cc daily Left-sided mild to moderate pleural effusion Coagulopathy corrected mostly And receives platelet count is now up to 74 He is on his second units of packed RBCs for hemoglobin of 6.8 I had a long discussion with the patients family At this time they would like to proceed with thoracentesis on the left side followed by possible extubation and may be hospice if not successful Keyla at length with the patient's family and the referring physician Subjective 24 Hr Interval Summary Constitutional: improved Pain Control: mild Exam/Review of Systems Vital Signs Vitals Vital Signs Date Temp Pulse Resp B/P (MAP) Pulse Ox O2 O2 Flow FiO2 Time Delivery Rate 08/24/18 76 08:00 08/24/18 113/54 100 Mechanical 06:00 (73) Ventilator 08/24/18 30 05:29 08/24/18 98.5 04:00 Intake and Output 08/23/18 08/23/18 08/24/18 1515:00 23:00 07:00 IntakeIntake Total 1220 ml 1334.5455 ml 1950 ml OutputOutput Total 305 ml 930 ml 2045 ml BalanceBalance 915 ml 404.5455 ml -95 ml Exam Eyes: nl conjunctiva, EOMI, nl lids, nl sclera ENMT: nl external ears & nose, nl lips & teeth, nl nasal mucosa & septum, mucosa pink and moist Neck: supple, non-tender Respiratory: clear to auscultation, normal air movement Gastrointestinal: soft, nl liver, spleen, non-tender Musculoskeletal: nl extremities to inspection, nl gait and stance Results Result Diagram: 08/24/1844508/24/18445 MARY CARMEN GREER MD August 24, 2018 10:19
[2018-08-24] MEDS ORDERED: POTASSIUM CHLORIDE 20 MEQ POWDER FOR ORAL SOLN JT ONE (10:30)
[2018-08-24] MEDS ORDERED: POTASSIUM PHOSPHATE 30 MM in SOD CHLORIDE 0.9% 250 ML IVPB ONE (11:30)
[2018-08-24] MEDS: CEFEPIME 1GM/50 ML IVPB SCH ×2 (11:33→21:28)
[2018-08-24] MEDS: METOPROLOL 25 MG TAB PO SCH ×2 (11:34→21:29)
[2018-08-24] MEDS: ZINC SULFATE 220 MG CAP GTB SCH (11:34)
[2018-08-24] MEDS: FINASTERIDE 5 MG TAB GTB SCH (11:34)
[2018-08-24] MEDS: ASCORBIC ACID 500 MG TAB GTB SCH ×2 (11:34→21:29)
[2018-08-24] MEDS: METHENAMINE 1 GM TAB GTB SCH ×2 (11:34→21:28)
[2018-08-24] MEDS: BALSAM PERU/CASTOR OIL 60 GM TUBE TOP SCH ×2 (11:35→21:29)
[2018-08-24] MEDS: FISH OIL 1,000 MG CAP PO SCH ×2 (11:35→21:28)
[2018-08-24] MEDS: PRENATAL VITAMIN GTB SCH (11:35)
--- NOTE | 2018-08-24 13:37 | CONS ---
Assessment/Plan Assessment/Plan Assessment/Plan (Daily) Assessment/Plan (Daily) Hospital Course (Demo Recall) 87 yo male with prostate cancer with possible bone mets presents with failure to thrive and malnutrition. S/P PEG 08/[address] Rueda Interval hx: Pt still intubated. Tolerating tube feeds at 30cc with no residuals 1. Dysphagia -GJ tube 2. Failure to thrive. 3. Alzheimer disease. 4. 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 Also metastasis in the lung and also in the liver. Patient's PSA is greater than thousand 5. Hypertension. 6. Acute hypoxemic hypercarbic respiratory failure. -s/p chest tube placement and intubation 7. Encephalopathy 8. Anemia with downward trend -retic 2.2, Iron and percent sat wnl, TIBC low, ferritin high 9. S/P thoracentesis with lymphocytic exudate -pending cytology 10. UTI 11. Encephalopathy, as per the son patient responds to command 12. Pancytopenia secondary to metastatic prostate cancer PLAN: Supportive ICU care FOB pending Ok to increase TF to 60cc/hr, monitor residuals q 6 hours, check phos in am Monitor electrolytes for refeeding syndrome Continue with erythromycin Abdominal binder Continue with IV hydration until pt is at goal Continue antibiotic for his UTI and possible pneumonia Case discussed with the son and mom Hopefully we can extubate the patient Consultation Date/Type/Reason Admit Date/Time Aug 17, 2018 at 09:51 Initial Consult Date 08/21/18 Requesting Provider: SANIA WHITTINGTON MD Date/Time of Note DATE: 08/24/18 TIME: 13:35 24 HR Interval Summary Subjective hx not possible: pt non-verbal, pt critical status Exam/Review of Systems Exam Vitals Vital Signs Date Temp Pulse Resp B/P (MAP) Pulse Ox O2 O2 Flow FiO2 Time Delivery Rate 08/24/18 76 08:00 08/24/18 113/54 100 Mechanical 06:00 (73) Ventilator 08/24/18 30 05:29 08/24/18 98.5 04:00 Intake and Output 08/23/18 08/23/18 08/24/18 1414:59 22:59 06:59 IntakeIntake Total 1220 ml 1394.5455 ml 2010 ml OutputOutput Total 305 ml 880 ml 2095 ml BalanceBalance 915 ml 514.5455 ml -85 ml ENMT: intubated Musculoskeletal: nl extremities to inspection, nl gait and stance Extremities: normal pulses Neurological: lethargic Results Result Diagram: 08/24/186 08/24/18 0446 Results 24hrs Laboratory Tests Test 08/23/18 19:59 08/24/18 04:46 08/24/18 04:57 Prothrombin Time 15.0 H 15.1 H Prothrombin Time Ratio 1.2 1.2 INR International 1.17 1.18 Normalized Ratio Activated Partial Thromboplast 38.7 H 35.0 Time White Blood Count 3.0 L Red Blood Count 2.25 L Hemoglobin 6.5 *L Hematocrit 19.2 L Mean Corpuscular Volume 85.3 Mean Corpuscular Hemoglobin 28.9 L Mean Corpuscular 33.9 Hemoglobin Concent Red Cell Distribution Width 17.6 H Platelet Count 74 #L Mean Platelet Volume 11.1 H Immature Granulocytes % 12.800 H Neutrophils % Segmented Neutrophils % (Manual) 37 L Band Neutrophils % (Manual) 17 H Lymphocytes % Lymphocytes % (Manual) 42 Monocytes % Monocytes % (Manual) 1 Eosinophils % Basophils % Metamyelocytes % (manual) 2 H Myelocytes % (Manual) 1 H Nucleated Red Blood Cells % 19 H Immature Granulocytes # 0.380 H Neutrophils # Neutrophils # (Manual) 1.1 L Band Neutrophils # 0.5 Lymphocytes (Manual) 1.2 Lymphocytes # Monocytes # Monocytes # (Manual) 0.0 L Eosinophils # Basophils # Metamyelocytes # 0.0 Myelocytes # 0.0 Nucleated Red Blood Cells # Platelet Estimate DECREASED Polychromasia 3+ Hypochromasia 1+ Poikilocytosis 1+ Anisocytosis 1+ Spherocytes 1+ Sodium Level 143 Potassium Level 3.3 L Chloride Level 110 Carbon Dioxide Level 26 Anion Gap 7 Blood Urea Nitrogen 32 H Creatinine 0.40 L Est Glomerular Filtrat Rate mL/min Glucose Level 89 Calcium Level 8.1 L Phosphorus Level 2.1 L Total Bilirubin 0.8 Direct Bilirubin 0.00 Indirect Bilirubin 0.8 Aspartate Amino Transf (AST/SGOT) 106 H Alanine 47 Aminotransferase (ALT/SGPT) Alkaline Phosphatase 335 H Total Protein 5.2 L Albumin 3.0 L Globulin 2.20 Albumin/Globulin Ratio 1.36 Lab Scanned Report BLOOD TRANSFUSION Medications Medication Current Medications Miscellaneous Information (Pending Santyl Order For Wound Care) This patient tabares... PRN PRN XX WOUND CARE; Start 08/16/18 at 20:00 Acetaminophen (Tylenol Tab) 500 mg Q4H PRN PO MILD PAIN(1-3)OR ELEVATED TEMP Last administered on 08/21/18 21:07; Admin Dose 500 MG; Start 08/16/18 at 20:00 Ascorbic Acid (Vitamin C) 500 mg BID GTB Last administered on 08/24/18 11:34; Admin Dose 500 MG; Start 08/16/18 at 21:00 Bicalutamide (Casodex) 50 mg DAILY PO ; Start 08/17/18 at 09:00; Status Hold Metoprolol Tartrate (Lopressor) 25 mg BID PO Last administered on 08/24/18 11:34; Admin Dose 25 MG; Start 08/17/18 at 21:00 Fish Oil (Fish Oil) 1,000 mg BID PO Last administered on 08/24/18 11:35; Admin Dose 1,000 MG; Start 08/18/18 at 14:00 Norepinephrine 250 ml @ 1.875 mls/ hr TITRATE IV Last administered on 08/19/18 11:59; Admin Dose 1.875 MLS/HR; Start 08/19/18 at 11:00 Albuterol (Ventolin Hfa) 4 puff Q4H RESP THERAPY INH Last administered on 08/24/18 13:16; Admin Dose 4 PUFF; Start 08/19/18 at 17:00 Ipratropium [place] (Atrovent Hfa) 4 puff Q4 INH Last administered on 08/24/18 13:16; Admin Dose 4 PUFF; Start 08/19/18 at 17:00 Lactated Ringer's 1,000 ml @ 70 mls/hr [id number] IV Last administered on 08/23/18 19:54; Admin Dose 70 MLS/HR; Start 08/19/18 at 14:00 Phenylephrine HCl 40 mg/Dextrose 250 ml @ 37.5 mls/hr TITRATE IV Last administered on 08/22/18 00:09; Admin Dose 26.25 MLS/HR; Start 08/19/18 at 14:00 Methenamine (Hiprex) 1 gm BID GTB Last administered on 08/24/18 11:34; Admin Dose 1 GM; Start 08/20/18 at 21:00 Prenat Multivit/ [employer]/Iron/Folic Ac () 1 tab DAILY GTB Last administered on 08/24/18 11:35; Admin Dose 1 TAB; Start 08/21/18 at 09:00 Zinc Sulfate (Zinc Sulfate) 220 mg DAILY GTB Last administered on 08/24/18 11:34; Admin Dose 220 MG; Start 08/21/18 at 09:00 Finasteride (Proscar) 5 mg DAILY GTB Last administered on 08/24/18 11:34; Admin Dose 5 MG; Start 08/20/18 at 10:00 Morphine Sulfate (morphine) 1 mg Q4H PRN IV SEVERE PAIN LEVEL 7-10; Start 08/21/18 at 12:00 Cefepime HCl 50 ml @ 100 mls/hr Q12 IVPB Last administered on 08/24/18 11:33; Admin Dose 100 MLS/HR; Start 08/21/18 at 14:27 Potassium Phosphate 30 mm/ Sodium Chloride 260 ml @ 65 mls/hr ONCE ONCE IVPB Last administered on 08/24/18 11:33; Admin Dose 65 MLS/HR; Start 08/24/18 at 11:30; Stop 08/24/18 at 15:29 AILIN RUEDA MD August 24, 2018 13:37
[2018-08-24] MEDS ORDERED: LIDOCAINE 1% (MPF) 5 ML VIAL ONE (14:31)
--- NOTE | 2018-08-24 17:15 | CONS ---
Assessment/Plan Assessment/Plan Hospital Course (Demo Recall) # sepsis, SIRS, resp - septic shock due to UTI plus SIRS due to possible aspiration, pneumothorax, improved - septic shock due to UTI - SIRS due to possible aspiration pneumonitis - probable aspiration pneumonitis - pneumonia vs. colonization of the airway due to enterobacter - b/l pleural effusion - s/p R sided thoracentesis on 08/17/2018. LDH 499, protein 3.2, WBC 89 with 93.2% monocytes. Cultures of the fluid are negative; no malignant cells by cytology - s/p L sided thoracentesis on 08/24/2018 - s/p R PTX - s/p placement of R chest tube on 08/19/2018 - acute hypoxic resp failure - s/p intubation on 08/19/2018 # , heme/onc - UTI due to pseudomonas - prostate CA, with probable mets to the lungs and liver (based on CT result) - h/o recent chemotherapy for his prostate CA frequent UTI prior to admission. Pt was on long-term antibiotic for prophylaxis according to Pt's son - pancytopenia # GI, alimentary - transaminitis, probably a combination of liver metastasis and shock liver - s/p failure to thrive - s/p placement of G-J tube on 08/16/2018 # other conditions - Alzheimer's dementia - acute metabolic encephalopathy recommendations - added cell count, LDH, protein and culture for L sided pleural effusion - continue cefepime (08/21/2018-) for enterobacter and pseudomonas, at least 5 days - I recommend changing the femoral line to PICC if Pt will continue ICU level care. If not, I recommend its discontinuation - I discussed the management with Pt's son, Dr. Camacho from [facility], [place] - the critical care time I took to care for this Pt today was from 1645 to 1715 Consultation Date/Type/Reason Admit Date/Time Aug 17, 2018 at 09:51 Initial Consult Date 08/21/18 Type of Consult ID Requesting Provider: SANIA WHITTINGTON MD Date/Time of Note DATE: 08/24/18 TIME: 17:10 24 HR Interval Summary Subjective hx not possible: pt non-verbal, pt critical, pt critical status Exam/Review of Systems Exam Vitals Vital Signs Date Temp Pulse Resp B/P (MAP) Pulse Ox O2 O2 Flow FiO2 Time Delivery Rate 08/24/18 73 18 106/52 100 Mechanical 15:00 (70) Ventilator 08/24/18 98.1 12:00 08/24/18 30 05:29 Intake and Output 08/23/18 08/23/18 08/24/18 1515:00 23:00 07:00 IntakeIntake Total 1220 ml 1334.5455 ml 1950 ml OutputOutput Total 305 ml 930 ml 2045 ml BalanceBalance 915 ml 404.5455 ml -95 ml Constitutional: non-verbal, frail Psych: confusion Head: normocephalic, atraumatic Eyes: nl conjunctiva, nl lids ENMT: intubated, other (dry mucus membranes) Neck: other (not swollen) Respiratory: crackles/rales, wheezing, other (+R chest tube) Cardiovascular: regular rate and rhythm, nl pulses Gastrointestinal: soft, non-tender; No distended, No tender Genitourinary - Male: other (FC) Musculoskeletal: No swelling Neurological: unresponsive Skin: rash or lesions (+bulla on R 1st toe) Results Result Diagram: 08/24/18 0446 08/24/18 0446 Results 24hrs Laboratory Tests Test 08/23/18 19:59 08/24/18 04:46 08/24/18 04:57 Prothrombin Time 15.0 H 15.1 H Prothrombin Time Ratio 1.2 1.2 INR International 1.17 1.18 Normalized Ratio Activated Partial Thromboplast 38.7 H 35.0 Time White Blood Count 3.0 L Red Blood Count 2.25 L Hemoglobin 6.5 *L Hematocrit 19.2 L Mean Corpuscular Volume 85.3 Mean Corpuscular Hemoglobin 28.9 L Mean Corpuscular 33.9 Hemoglobin Concent Red Cell Distribution Width 17.6 H Platelet Count 74 #L Mean Platelet Volume 11.1 H Immature Granulocytes % 12.800 H Neutrophils % Segmented Neutrophils % (Manual) 37 L Band Neutrophils % (Manual) 17 H Lymphocytes % Lymphocytes % (Manual) 42 Monocytes % Monocytes % (Manual) 1 Eosinophils % Basophils % Metamyelocytes % (manual) 2 H Myelocytes % (Manual) 1 H Nucleated Red Blood Cells % 19 H Immature Granulocytes # 0.380 H Neutrophils # Neutrophils # (Manual) 1.1 L Band Neutrophils # 0.5 Lymphocytes (Manual) 1.2 Lymphocytes # Monocytes # Monocytes # (Manual) 0.0 L Eosinophils # Basophils # Metamyelocytes # 0.0 Myelocytes # 0.0 Nucleated Red Blood Cells # Platelet Estimate DECREASED Polychromasia 3+ Hypochromasia 1+ Poikilocytosis 1+ Anisocytosis 1+ Spherocytes 1+ Sodium Level 143 Potassium Level 3.3 L Chloride Level 110 Carbon Dioxide Level 26 Anion Gap 7 Blood Urea Nitrogen 32 H Creatinine 0.40 L Est Glomerular Filtrat Rate mL/min Glucose Level 89 Calcium Level 8.1 L Phosphorus Level 2.1 L Total Bilirubin 0.8 Direct Bilirubin 0.00 Indirect Bilirubin 0.8 Aspartate Amino Transf (AST/SGOT) 106 H Alanine 47 Aminotransferase (ALT/SGPT) Alkaline Phosphatase 335 H Total Protein 5.2 L Albumin 3.0 L Globulin 2.20 Albumin/Globulin Ratio 1.36 Lab Scanned Report BLOOD TRANSFUSION Medications Medication Current Medications Miscellaneous Information (Pending [place] Order For Wound Care) This patient tabares... PRN PRN XX WOUND CARE; Start 08/16/18 at 20:00 Acetaminophen (Tylenol Tab) 500 mg Q4H PRN PO MILD PAIN(1-3)OR ELEVATED TEMP Last administered on 08/21/18 21:07; Admin Dose 500 MG; Start 08/16/18 at 20:00 Ascorbic Acid (Vitamin C) 500 mg BID GTB Last administered on 08/24/18 11:34; Admin Dose 500 MG; Start 08/16/18 at 21:00 Bicalutamide (Casodex) 50 mg DAILY PO ; Start 08/17/18 at 09:00; Status Hold Metoprolol Tartrate (Lopressor) 25 mg BID PO Last administered on 08/24/18 11:34; Admin Dose 25 MG; Start 08/17/18 at 21:00 Fish Oil (Fish Oil) 1,000 mg BID PO Last administered on 08/24/18 11:35; Admin Dose 1,000 MG; Start 08/18/18 at 14:00 Norepinephrine 250 ml @ 1.875 mls/ hr TITRATE IV Last administered on 11:59; Admin Dose 1.875 MLS/HR; Start 08/19/18 at 11:00 Albuterol (Ventolin Hfa) 4 puff Q4H RESP THERAPY INH Last administered on 08/24/18 17:01; Admin Dose 4 PUFF; Start 08/19/18 at 17:00 Ipratropium [place] (Atrovent Hfa) 4 puff Q4 INH Last administered on 08/24/18 17:01; Admin Dose 4 PUFF; Start 08/19/18 at 17:00 Lactated Ringer's 1,000 ml @ 70 mls/hr [id number] IV Last administered on 08/23/18 19:54; Admin Dose 70 MLS/HR; Start 08/19/18 at 14:00 Phenylephrine HCl 40 mg/Dextrose 250 ml @ 37.5 mls/hr TITRATE IV Last administered on 08/22/18 00:09; Admin Dose 26.25 MLS/HR; Start 08/19/18 at 14:00 Methenamine (Hiprex) 1 gm BID GTB Last administered on 08/24/18 11:34; Admin Dose 1 GM; Start 08/20/18 at 21:00 Prenat Multivit/ [place]/Iron/Folic Ac () 1 tab DAILY GTB Last administered on 08/24/18 11:35; Admin Dose 1 TAB; Start 08/21/18 at 09:00 Zinc Sulfate (Zinc Sulfate) 220 mg DAILY GTB Last administered on 08/24/18 11:34; Admin Dose 220 MG; Start 08/21/18 at 09:00 Finasteride (Proscar) 5 mg DAILY GTB Last administered on 08/24/18 11:34; Admin Dose 5 MG; Start 08/20/18 at 10:00 Morphine Sulfate (morphine) 1 mg Q4H PRN IV SEVERE PAIN LEVEL 7-10; Start 08/21/18 at 12:00 Cefepime HCl 50 ml @ 100 mls/hr Q12 IVPB Last administered on 08/24/18 11:33; Admin Dose 100 MLS/HR; Start 08/21/18 at 14:27 JC LAMBERT M.D. August 24, 2018 17:15
--- NOTE | 2018-08-24 18:10 | CONS ---
Assessment/Plan Assessment/Plan Assessment/Plan (Daily) 1. acute prerenal azotemia 2. Septic shock 3. right sided pneumothorax s/p R chest tube placement 4. acute hypoxemic respiratory failure intubated on ventilator 5. Metastatic prostate CA 6. Dysphagia s/p G tube placement Plan : Conitnue IV abx cefepime, Renally dose all abx and monitor electrolytes IVF LR at 70 cc/hr ,BUN/Cr 32/0.4, K 3.3- replaced for today Left Chest tube in case- still draining 200-300c/day , pt will need Pleurax catheter to facilicate weanign process Pulmonary has been following for ventilator care ID following will follow up Consultation Date/Type/Reason Admit Date/Time Aug 17, 2018 at 09:51 Initial Consult Date 08/21/18 Type of Consult NEPHROLOGY Requesting Provider: SANIA WHITTINGTON MD Date/Time of Note DATE: 08/24/18 TIME: 18:10 Exam/Review of Systems Exam Vitals Vital Signs Date Temp Pulse Resp B/P (MAP) Pulse Ox O2 O2 Flow FiO2 Time Delivery Rate 08/24/18 79 20 100 30 16:57 08/24/18 106/52 Mechanical 15:00 (70) Ventilator 08/24/18 98.1 12:00 Intake and Output 08/23/18 08/23/18 08/24/18 1515:00 23:00 07:00 IntakeIntake Total 1220 ml 1334.5455 ml 1950 ml OutputOutput Total 305 ml 930 ml 2045 ml BalanceBalance 915 ml 404.5455 ml -95 ml Results Result Diagram: 08/24/18 0446 08/24/18 0446 Results 24hrs Laboratory Tests Test 08/23/18 19:59 08/24/18 04:46 08/24/18 04:57 Prothrombin Time 15.0 H 15.1 H Prothrombin Time Ratio 1.2 1.2 INR International 1.17 1.18 Normalized Ratio Activated Partial Thromboplast 38.7 H 35.0 Time White Blood Count 3.0 L Red Blood Count 2.25 L Hemoglobin 6.5 *L Hematocrit 19.2 L Mean Corpuscular Volume 85.3 Mean Corpuscular Hemoglobin 28.9 L Mean Corpuscular 33.9 Hemoglobin Concent Red Cell Distribution Width 17.6 H Platelet Count 74 #L Mean Platelet Volume 11.1 H Immature Granulocytes % 12.800 H Neutrophils % Segmented Neutrophils % (Manual) 37 L Band Neutrophils % (Manual) 17 H Lymphocytes % Lymphocytes % (Manual) 42 Monocytes % Monocytes % (Manual) 1 Eosinophils % Basophils % Metamyelocytes % (manual) 2 H Myelocytes % (Manual) 1 H Nucleated Red Blood Cells % 19 H Immature Granulocytes # 0.380 H Neutrophils # Neutrophils # (Manual) 1.1 L Band Neutrophils # 0.5 Lymphocytes (Manual) 1.2 Lymphocytes # Monocytes # Monocytes # (Manual) 0.0 L Eosinophils # Basophils # Metamyelocytes # 0.0 Myelocytes # 0.0 Nucleated Red Blood Cells # Platelet Estimate DECREASED Polychromasia 3+ Hypochromasia 1+ Poikilocytosis 1+ Anisocytosis 1+ Spherocytes 1+ Sodium Level 143 Potassium Level 3.3 L Chloride Level 110 Carbon Dioxide Level 26 Anion Gap 7 Blood Urea Nitrogen 32 H Creatinine 0.40 L Est Glomerular Filtrat Rate mL/min Glucose Level 89 Calcium Level 8.1 L Phosphorus Level 2.1 L Total Bilirubin 0.8 Direct Bilirubin 0.00 Indirect Bilirubin 0.8 Aspartate Amino Transf (AST/SGOT) 106 H Alanine 47 Aminotransferase (ALT/SGPT) Alkaline Phosphatase 335 H Total Protein 5.2 L Albumin 3.0 L Globulin 2.20 Albumin/Globulin Ratio 1.36 Lab Scanned Report BLOOD TRANSFUSION Medications Medication Current Medications Miscellaneous Information (Pending Santyl Order For Wound Care) This patient tabares... PRN PRN XX WOUND CARE; Start 08/16/18 at 20:00 Acetaminophen (Tylenol Tab) 500 mg Q4H PRN PO MILD PAIN(1-3)OR ELEVATED TEMP Last administered on 08/21/18at 21:07; Admin Dose 500 MG; Start 08/16/18 at 20:00 Ascorbic Acid (Vitamin C) 500 mg BID GTB Last administered on 08/24/18 11:34; Admin Dose 500 MG; Start 08/16/18 at 21:00 Bicalutamide (Casodex) 50 mg DAILY PO ; Start 08/17/18 at 09:00; Status Hold Metoprolol Tartrate (Lopressor) 25 mg BID PO Last administered on 08/24/18 11:34; Admin Dose 25 MG; Start 08/17/18 at 21:00 Fish Oil (Fish Oil) 1,000 mg BID PO Last administered on 08/24/18 11:35; Admin Dose 1,000 MG; Start 08/18/18 at 14:00 Norepinephrine 250 ml @ 1.875 mls/ hr TITRATE IV Last administered on 08/19/18 11:59; Admin Dose 1.875 MLS/HR; Start 08/19/18 at 11:00 Albuterol (Ventolin Hfa) 4 puff Q4H RESP THERAPY INH Last administered on 17:01; Admin Dose 4 PUFF; Start 08/19/18 at 17:00 Ipratropium [place] (Atrovent Hfa) 4 puff Q4 INH Last administered on 08/24/18 17:01; Admin Dose 4 PUFF; Start 08/19/18 at 17:00 Lactated Ringer's 1,000 ml @ 70 mls/hr [id number] IV Last administered on 08/24/18 17:17; Admin Dose 70 MLS/HR; Start 08/19/18 at 14:00 Phenylephrine HCl 40 mg/Dextrose 250 ml @ 37.5 mls/hr TITRATE IV Last admini stered on 08/22/18 00:09; Admin Dose 26.25 MLS/HR; Start 08/19/18 at 14:00 Methenamine (Hiprex) 1 gm BID GTB Last administered on 08/24/18 11:34; Admin Dose 1 GM; Start 08/20/18 at 21:00 Prenat Multivit/ [place]/Iron/Folic Ac () 1 tab DAILY GTB Last administered on 08/24/18 11:35; Admin Dose 1 TAB; Start 08/21/18 at 09:00 Zinc Sulfate (Zinc Sulfate) 220 mg DAILY GTB Last administered on 08/24/18 11:34; Admin Dose 220 MG; Start 08/21/18 at 09:00 Finasteride (Proscar) 5 mg DAILY GTB Last administered on 08/24/18 11:34; Admin Dose 5 MG; Start 08/20/18 at 10:00 Morphine Sulfate (morphine) 1 mg Q4H PRN IV SEVERE PAIN LEVEL 7-10; Start 08/21/18 at 12:00 Cefepime HCl 50 ml @ 100 mls/hr Q12 IVPB Last administered on 08/24/18at 11:33; Admin Dose 100 MLS/HR; Start 08/21/18 at 14:27 CELIA KUMAR MD August 24, 2018 18:10
[2018-08-25] VITALS (33 sets, daily range): BP systolic 95–128; BP diastolic 38–67; PULSE 75–104; RESP 16–24
[2018-08-25] MEDS: ALBUTEROL HFA 8 GM INHALER INH SCH ×5 (01:15→17:51)
[2018-08-25] MEDS: IPRATROPIUM (HFA) 12.9 GM INHALER INH SCH ×5 (01:15→17:50)
--- NOTE | 2018-08-25 08:06 | CONS ---
Assessment/Plan Assessment/Plan Assessment/Plan (Daily) 1. acute prerenal azotemia 2. Septic shock 2/2 UTI 3. right sided pneumothorax s/p R chest tube placement 4. acute hypoxemic respiratory failure intubated on ventilator 5. Metastatic prostate CA 6. Dysphagia s/p G tube placement 7. UTI with Urine cx growign Pseudomonas Plan : Conitnue IV abx cefepime, Renally dose all abx and monitor electrolytes IVF LR at 70 cc/hr ,BUN/Cr 28/0.3, Other electrolytes stable Left Chest tube in case- still draining 200-300c/day , pt will need Pleurax catheter to facilicate weanign process Pulmonary has been following for ventilator care ID following will follow up Consultation Date/Type/Reason Admit Date/Time Aug 17, 2018 at 09:51 Initial Consult Date 08/21/18 Type of Consult NEPHROLOGY Requesting Provider: SANIA WHITTINGTON MD Date/Time of Note DATE: 08/25/18 TIME: 08:06 Exam/Review of Systems Exam Vitals Vital Signs Date Temp Pulse Resp B/P (MAP) Pulse Ox O2 O2 Flow FiO2 Time Delivery Rate 08/25/18 83 16 122/57 100 Mechanical 06:00 (78) Ventilator 08/25/18 30 05:19 08/25/18 97.5 04:00 Intake and Output 08/24/18 08/24/18 08/25/18 1515:00 23:00 07:00 IntakeIntake Total 2160 ml 1052.5 ml 1010 ml OutputOutput Total 2200 ml 705 ml 790 ml BalanceBalance -40 ml 347.5 ml 220 ml Exam Constitutional: non-verbal, frail, intubated on ventilator Respiratory: crackles/rales, diminished breath sounds Cardiovascular: other (tachycardic and regular) Gastrointestinal: soft, non-tender, other (+feeding tube) Genitourinary - Male: other (FC) Musculoskeletal: No swelling Extremities: pitting pedal edema Neurological: unresponsive Skin: rash or lesions (ecchymoses of b/l UE) Results Result Diagram: 08/25/18 0330 08/25/18 0330 Results 24hrs Laboratory Tests Test 08/24/18 17:15 08/25/18 03:30 08/25/18 05:04 Pathologist Review (Hematology) YES Body Fluid Type Body Fluid Volume 1050.0 Body Fluid Color PREETI Body Fluid Appearance HAZY Body Fluid WBC 145 Body Fluid RBC (Auto) 1000 Body Fluid Polynuclear WBCs (%) 31.7 Body Fluid Mononuclear Cells % 68.3 Auto Body Fluid Total Protein 2.1 Body Fluid Lactate Dehydrogenase 481 White Blood Count 3.8 #L Red Blood Count 3.83 #L Hemoglobin 10.9 #L Hematocrit 32.3 #L Mean Corpuscular Volume 84.3 Mean Corpuscular Hemoglobin 28.5 L Mean Corpuscular 33.7 Hemoglobin Concent Red Cell Distribution Width 16.3 H Platelet Count 77 L Mean Platelet Volume 11.5 H Immature Granulocytes % 18.000 H Neutrophils % Lymphocytes % Monocytes % Eosinophils % Basophils % Nucleated Red Blood Cells % 5.2 H Immature Granulocytes # 0.690 H Neutrophils # Lymphocytes # Monocytes # Eosinophils # Basophils # Nucleated Red Blood Cells # Sodium Level 141 Potassium Level 4.1 Chloride Level 111 H Carbon Dioxide Level 26 Anion Gap 4 L Blood Urea Nitrogen 28 H Creatinine 0.30 L Est Glomerular Filtrat Rate mL/min Glucose Level 134 # Calcium Level 7.8 L Total Bilirubin 0.6 Direct Bilirubin 0.00 Indirect Bilirubin 0.6 Aspartate Amino Transf (AST/SGOT) 101 H Alanine 57 Aminotransferase (ALT/SGPT) Alkaline Phosphatase 430 H Total Protein 4.7 L Albumin 2.5 L Globulin 2.20 Albumin/Globulin Ratio 1.13 Lab Scanned Report BLOOD TRANSFUSION Medications Medication Current Medications Miscellaneous Information (Pending Santyl Order For Wound Care) This patient tabares... PRN PRN XX WOUND CARE; Start 08/16/18 at 20:00 Acetaminophen (Tylenol Tab) 500 mg Q4H PRN PO MILD PAIN(1-3)OR ELEVATED TEMP Last administered on 08/21/18at 21:07; Admin Dose 500 MG; Start 08/16/18 at 20:00 Ascorbic Acid (Vitamin C) 500 mg BID GTB Last administered on 08/24/18at 21:29; Admin Dose 500 MG; Start 08/16/18 at 21:00 Bicalutamide (Casodex) 50 mg DAILY PO ; Start 08/17/18 at 09:00; Status Hold Metoprolol Tartrate (Lopressor) 25 mg BID PO Last administered on 08/24/18at 21:29; Admin Dose 25 MG; Start 08/17/18 at 21:00 Fish Oil (Fish Oil) 1,000 mg BID PO Last administered on 08/24/18 21:28; Admin Dose 1,000 MG; Start 08/18/18 at 14:00 Norepinephrine 250 ml @ 1.875 mls/ hr TITRATE IV Last administered on 08/19/18 11:59; Admin Dose 1.875 MLS/HR; Start 08/19/18 at 11:00 Albuterol (Ventolin Hfa) 4 puff Q4H RESP THERAPY INH Last administered on 08/25/18 05:19; Admin Dose 4 PUFF; Start 08/19/18 at 17:00 Ipratropium [place] (Atrovent Hfa) 4 puff Q4 INH Last administered on 08/25/18 05:19; Admin Dose 4 PUFF; Start 08/19/18 at 17:00 Lactated Ringer's 1,000 ml @ 70 mls/hr [id number] IV Last administered on 08/24/18 17:17; Admin Dose 70 MLS/HR; Start 08/19/18 at 14:00 Phenylephrine HCl 40 mg/Dextrose 250 ml @ 37.5 mls/hr TITRATE IV Last administered on 08/22/18 00:09; Admin Dose 26.25 MLS/HR; Start 08/19/18 at 14:00 Methenamine (Hiprex) 1 gm BID GTB Last administered on 08/24/18 21:28; Admin Dose 1 GM; Start 08/20/18 at 21:00 Prenat Multivit/ [place]/Iron/Folic Ac () 1 tab DAILY GTB Last administered on 08/24/18 11:35; Admin Dose 1 TAB; Start 08/21/18 at 09:00 Zinc Sulfate (Zinc Sulfate) 220 mg DAILY GTB Last administered on 08/24/18 11 :34; Admin Dose 220 MG; Start 08/21/18 at 09:00 Finasteride (Proscar) 5 mg DAILY GTB Last administered on 08/24/18 11:34; Admin Dose 5 MG; Start 08/20/18 at 10:00 Morphine Sulfate (morphine) 1 mg Q4H PRN IV SEVERE PAIN LEVEL 7-10; Start 08/21/18 at 12:00 Cefepime HCl 50 ml @ 100 mls/hr Q12 IVPB Last administered on 08/24/18at 21:28; Admin Dose 100 MLS/HR; Start 08/21/18 at 14:27 CELIA KUMAR MD August 25, 2018 08:06
[2018-08-25] MEDS: FINASTERIDE 5 MG TAB GTB SCH (10:29)
[2018-08-25] MEDS: ZINC SULFATE 220 MG CAP GTB SCH (10:29)
[2018-08-25] MEDS: METHENAMINE 1 GM TAB GTB SCH ×2 (10:29→21:26)
[2018-08-25] MEDS: CEFEPIME 1GM/50 ML IVPB SCH ×2 (10:29→21:30)
[2018-08-25] MEDS: ASCORBIC ACID 500 MG TAB GTB SCH ×2 (10:30→21:27)
[2018-08-25] MEDS: PRENATAL VITAMIN GTB SCH (10:30)
[2018-08-25] MEDS: FISH OIL 1,000 MG CAP PO SCH ×2 (10:30→21:26)
[2018-08-25] MEDS: METOPROLOL 25 MG TAB PO SCH ×2 (10:31→21:29)
[2018-08-25] MEDS: BALSAM PERU/CASTOR OIL 60 GM TUBE TOP SCH ×2 (10:31→21:30)
--- NOTE | 2018-08-25 11:06 | PN ---
Date/Time of Note Date/Time of Note DATE: 08/25/18 TIME: 11:06 Assessment/Plan VTE Prophylaxis [place] [facility] [place]: 9 [place]CD [place] [facility] [place] Yes Pharmacological prophylaxis: LMWH Lines/Catheters IV C[facility]ter Type (from [facility] Central Line Central line still needed: Yes Urinary Cath still in place: Yes Reason Cath still needed: skin wounds contaminated by urine Assessment/Plan Hospital Course 1. Acute respiratory failure. Continue vent support. The patient has failed multiple weaning trials. Continue breathing treatment. Plan is to attempt a PleurX catheter and then remove chest tube and then resume weaning trials. 2. Possible pneumonia and urinary tract infection. Continue IV cefepime. 3. Metastatic prostate cancer, poor prognosis. Continue Casodex. 4. Dysphagia. Continue G-tube feeding. 5. Mildly elevated BUN. The patient's IV fluid rate had been increased. The patient has a preserved ejection fraction on echocardiogram. The patient remains critically ill. I met with the patient's son and daughter and goals of care discussed with them in detail including code status, hospice care and comfort care. They recommended to continue weaning trial and continue current treatment. They do not want DNR at this time, but we will discuss with the family members. We will continue current treatment with supportive care. Result Diagram: 08/25/18 0330 08/25/18 0330 Results 24hrs Laboratory Tests Test 08/24/18 17:15 08/25/18 03:30 08/25/18 05:04 Pathologist Review (Hematology) YES Body Fluid Type Body Fluid Volume 1050.0 Body Fluid Color PREETI Body Fluid Appearance HAZY Body Fluid WBC 145 Body Fluid RBC (Auto) 1000 Body Fluid Polynuclear WBCs (%) 31.7 Body Fluid Mononuclear Cells % 68.3 Auto Body Fluid Total Protein 2.1 Body Fluid Lactate Dehydrogenase 481 White Blood Count 3.8 #L Red Blood Count 3.83 #L Hemoglobin 10.9 #L Hematocrit 32.3 #L Mean Corpuscular Volume 84.3 Mean Corpuscular Hemoglobin 28.5 L Mean Corpuscular 33.7 Hemoglobin Concent Red Cell Distribution Width 16.3 H Platelet Count 77 L Mean Platelet Volume 11.5 H Immature Granulocytes % 18.000 H Neutrophils % Segmented Neutrophils % (Manual) 62 Band Neutrophils % (Manual) 4 Lymphocytes % Lymphocytes % (Manual) 16 Reactive Lymphocytes % (Manual) 1 H Monocytes % Monocytes % (Manual) 4 Eosinophils % Basophils % Metamyelocytes % (manual) 2 H Myelocytes % (Manual) 9 H Promyelocytes % (Manual) 1 H Plasma Cells % (manual) 1 Nucleated Red Blood Cells % 9 H Immature Granulocytes # 0.690 H Neutrophils # Neutrophils # (Manual) 2.4 Band Neutrophils # 0.1 Lymphocytes (Manual) 0.6 L Lymphocytes # Reactive Lymphocytes # 0.0 Monocytes # Monocytes # (Manual) 0.1 L Eosinophils # Basophils # Metamyelocytes # 0.0 Myelocytes # 0.3 H Promyelocytes # 0.0 Plasma Cells # (manual) 0.0 Nucleated Red Blood Cells # Toxic Granulation 2+ Platelet Estimate DECREASED Giant Platelets 5 H Polychromasia 1+ Hypochromasia 1+ Poikilocytosis 1+ Anisocytosis 1+ Microcytosis 1+ Macrocytosis 1+ Sodium Level 141 Potassium Level 4.1 Chloride Level 111 H Carbon Dioxide Level 26 Anion Gap 4 L Blood Urea Nitrogen 28 H Creatinine 0.30 L Est Glomerular Filtrat Rate mL/min Glucose Level 134 # Calcium Level 7.8 L Total Bilirubin 0.6 Direct Bilirubin 0.00 Indirect Bilirubin 0.6 Aspartate Amino Transf (AST/SGOT) 101 H Alanine 57 Aminotransferase (ALT/SGPT) Alkaline Phosphatase 430 H Total Protein 4.7 L Albumin 2.5 L Globulin 2.20 Albumin/Globulin Ratio 1.13 Lab Scanned Report BLOOD TRANSFUSION Subjective 24 Hr Interval Summary Free Text/Dictation Patient remain intubated Exam/Review of Systems Exam Vitals Vital Signs Date Temp Pulse Resp B/P (MAP) Pulse Ox O2 O2 Flow FiO2 Time Delivery Rate 08/25/18 87 08:00 08/25/18 16 122/57 100 Mechanical 06:00 (78) Ventilator 08/25/18 30 05:19 08/25/18 97.5 04:00 Intake and Output 08/24/18 08/24/18 08/25/18 1515:00 23:00 07:00 IntakeIntake Total 2160 ml 1052.5 ml 1010 ml OutputOutput Total 2200 ml 705 ml 790 ml BalanceBalance -40 ml 347.5 ml 220 ml Constitutional: well developed Head: normocephalic, atraumatic Neck: supple Respiratory: diminished breath sounds Cardiovascular: regular rate and rhythm Gastrointestinal: soft, non-tender Extremities: normal pulses Results Results 24hrs Laboratory Tests Test 08/24/18 17:15 08/25/18 03:30 08/25/18 05:04 Pathologist Review (Hematology) YES Body Fluid Type Body Fluid Volume 1050.0 Body Fluid Color PREETI Body Fluid Appearance HAZY Body Fluid WBC 145 Body Fluid RBC (Auto) 1000 Body Fluid Polynuclear WBCs (%) 31.7 Body Fluid Mononuclear Cells % 68.3 Auto Body Fluid Total Protein 2.1 Body Fluid Lactate Dehydrogenase 481 White Blood Count 3.8 #L Red Blood Count 3.83 #L Hemoglobin 10.9 #L Hematocrit 32.3 #L Mean Corpuscular Volume 84.3 Mean Corpuscular Hemoglobin 28.5 L Mean Corpuscular 33.7 Hemoglobin Concent Red Cell Distribution Width 16.3 H Platelet Count 77 L Mean Platelet Volume 11.5 H Immature Granulocytes % 18.000 H Neutrophils % Segmented Neutrophils % (Manual) 62 Band Neutrophils % (Manual) 4 Lymphocytes % Lymphocytes % (Manual) 16 Reactive Lymphocytes % (Manual) 1 H Monocytes % Monocytes % (Manual) 4 Eosinophils % Basophils % Metamyelocytes % (manual) 2 H Myelocytes % (Manual) 9 H Promyelocytes % (Manual) 1 H Plasma Cells % (manual) 1 Nucleated Red Blood Cells % 9 H Immature Granulocytes # 0.690 H Neutrophils # Neutrophils # (Manual) 2.4 Band Neutrophils # 0.1 Lymphocytes (Manual) 0.6 L Lymphocytes # Reactive Lymphocytes # 0.0 Monocytes # Monocytes # (Manual) 0.1 L Eosinophils # Basophils # Metamyelocytes # 0.0 Myelocytes # 0.3 H Promyelocytes # 0.0 Plasma Cells # (manual) 0.0 Nucleated Red Blood Cells # Toxic Granulation 2+ Platelet Estimate DECREASED Giant Platelets 5 H Polychromasia 1+ Hypochromasia 1+ Poikilocytosis 1+ Anisocytosis 1+ Microcytosis 1+ Macrocytosis 1+ Sodium Level 141 Potassium Level 4.1 Chloride Level 111 H Carbon Dioxide Level 26 Anion Gap 4 L Blood Urea Nitrogen 28 H Creatinine 0.30 L Est Glomerular Filtrat Rate mL/min Glucose Level 134 # Calcium Level 7.8 L Total Bilirubin 0.6 Direct Bilirubin 0.00 Indirect Bilirubin 0.6 Aspartate Amino Transf (AST/SGOT) 101 H Alanine 57 Aminotransferase (ALT/SGPT) Alkaline Phosphatase 430 H Total Protein 4.7 L Albumin 2.5 L Globulin 2.20 Albumin/Globulin Ratio 1.13 Lab Scanned Report BLOOD TRANSFUSION Medications Medication Current Medications Miscellaneous Information (Pending [facility] Order For Wound Care) This patient tabares... PRN PRN XX WOUND CARE; Start 08/16/18 at 20:00 Acetaminophen (Tylenol Tab) 500 mg Q4H PRN PO MILD PAIN(1-3)OR ELEVATED TEMP Last administered on 08/21/18 21:07; Admin Dose 500 MG; Start 08/16/18 at 20:00 Ascorbic Acid (Vitamin C) 500 mg BID GTB Last administered on 08/25/18 10:30; Admin Dose 500 MG; Start 08/16/18 at 21:00 Bicalutamide (Casodex) 50 mg DAILY PO ; Start 08/17/18 at 09:00; Status Hold Metoprolol Tartrate (Lopressor) 25 mg BID PO Last administered on 08/25/18 10:31; Admin Dose 25 MG; Start 08/17/18 at 21:00 Fish Oil (Fish Oil) 1,000 mg BID PO Last administered on 08/25/18 10:30; Admin Dose 1,000 MG; Start 08/18/18 at 14:00 Norepinephrine 250 ml @ 1.875 mls/ hr TITRATE IV Last administered on 08/19/18 11:59; Admin Dose 1.875 MLS/HR; Start 08/19/18 at 11:00 Albuterol (Ventolin Hfa) 4 puff Q4H RESP THERAPY INH Last administered on 08/25/18 08:06; Admin Dose 4 PUFF; Start 08/19/18 at 17:00 Ipratropium [place] (Atrovent Hfa) 4 puff Q4 INH Last administered on 08/25/18 08:06; Admin Dose 4 PUFF; Start 08/19/18 at 17:00 Lactated Ringer's 1,000 ml @ 70 mls/hr [id number] IV Last administered on 08/24/18 17:17; Admin Dose 70 MLS/HR; Start 08/19/18 at 14:00 Phenylephrine HCl 40 mg/Dextrose 250 ml @ 37.5 mls/hr TITRATE IV Last administered on 08/22/18 00:09; Admin Dose 26.25 MLS/HR; Start 08/19/18 at 14:00 Methenamine (Hiprex) 1 gm BID GTB Last administered on 08/25/18 10:29; Admin Dose 1 GM; Start 08/20/18 at 21:00 Prenat Multivit/ [place]/Iron/Folic Ac () 1 tab DAILY GTB Last administered on 08/25/18 10:30; Admin Dose 1 TAB; Start 08/21/18 at 09:00 Zinc Sulfate (Zinc Sulfate) 220 mg DAILY GTB Last administered on 08/25/18 10:29; Admin Dose 220 MG; Start 08/21/18 at 09:00 Finasteride (Proscar) 5 mg DAILY GTB Last administered on 08/25/18 10:29; Admin Dose 5 MG; Start 08/20/18 at 10:00 Morphine Sulfate (morphine) 1 mg Q4H PRN IV SEVERE PAIN LEVEL 7-10; Start 08/21/18 at 12:00 Cefepime HCl 50 ml @ 100 mls/hr Q12 IVPB Last administered on 08/25/18 10:29; Admin Dose 100 MLS/HR; Start 08/21/18 at 14:27 JOCELYN WELLER August 25, 2018 11:06
--- NOTE | 2018-08-25 12:54 | CONS ---
Consult Date/Type/Reason Admit Date/Time Aug 17, 2018 at 09:51 Initial Consult Date 08/17/18 Type of Consultation: Pulm/CCM Requesting Provider: SANIA WHITTINGTON MD Date/Time of Note DATE: 08/25/18 TIME: 12:46 Subjective No events. Minimally responsive on the vent. No sedatives. Objective Vitals Vital Signs Date Temp Pulse Resp B/P (MAP) Pulse Ox O2 O2 Flow FiO2 Time Delivery Rate 08/25/18 80 12:00 08/25/18 16 122/57 100 Mechanical 06:00 (78) Ventilator 08/25/18 30 05:19 08/25/18 97.5 04:00 Intake and Output 08/24/18 08/24/18 08/25/18 1515:00 23:00 07:00 IntakeIntake Total 2160 ml 1052.5 ml 1010 ml OutputOutput Total 2200 ml 705 ml 790 ml BalanceBalance -40 ml 347.5 ml 220 ml Exam HEENT: Neck supple; no JVD; no LAD: + ET tube CVS: RRR, S1 and S2 CHEST: Clear ABD: Soft, NT, + BS EXT: No c/c/e NEURO: Lethargic; moving all extremities. Results/Medications Result Diagram: 08/25/18 0330 08/25/18 0330 Results 24 hrs Laboratory Tests Test 08/24/18 17:15 08/25/18 03:30 08/25/18 05:04 08/25/18 09:00 Pathologist YES Review (Hematology) Body Fluid Type Body Fluid Volume 1050.0 Body Fluid Color PREETI Body Fluid HAZY Appearance Body Fluid WBC 145 Body Fluid RBC 1000 (Auto) Body Fluid 31.7 Polynuclear WBCs (%) Body Fluid 68.3 Mononuclear Cells % Auto Body Fluid Total 2.1 Protein Body Fluid 481 Lactate Dehydrogena se White Blood Count 3.8 #L Red Blood Count 3.83 #L Hemoglobin 10.9 #L Hematocrit 32.3 #L Mean Corpuscular 84.3 Volume Mean Corpuscular 28.5 L Hemoglobin Mean Corpuscular 33.7 Hemoglobin Concent Red Cell 16.3 H Distribution Width Platelet Count 77 L Mean Platelet 11.5 H Volume Immature 18.000 H Granulocytes % Neutrophils % Segmented 62 Neutrophils % (Manual) Band Neutrophils % 4 (Manual) Lymphocytes % Lymphocytes % 16 (Manual) Reactive 1 H Lymphocytes % (Manual) Monocytes % Monocytes % 4 (Manual) Eosinophils % Basophils % Metamyelocytes % 2 H (manual) Myelocytes % 9 H (Manual) Promyelocytes % 1 H (Manual) Plasma Cells % 1 (manual) Nucleated Red Blood 9 H Cells % Immature 0.690 H Granulocytes # Neutrophils # Neutrophils # 2.4 (Manual) Band Neutrophils # 0.1 Lymphocytes 0.6 L (Manual) Lymphocytes # Reactive 0.0 Lymphocytes # Monocytes # Monocytes # 0.1 L (Manual) Eosinophils # Basophils # Metamyelocytes # 0.0 Myelocytes # 0.3 H Promyelocytes # 0.0 Plasma Cells # 0.0 (manual) Nucleated Red Blood Cells # Toxic Granulation 2+ Platelet Estimate DECREASED Giant Platelets 5 H Polychromasia 1+ Hypochromasia 1+ Poikilocytosis 1+ Anisocytosis 1+ Microcytosis 1+ Macrocytosis 1+ Sodium Level 141 Potassium Level 4.1 Chloride Level 111 H Carbon Dioxide 26 Level Anion Gap 4 L Blood Urea Nitrogen 28 H Creatinine 0.30 L Est Glomerular Filtrat Rate mL/min Glucose Level 134 # Calcium Level 7.8 L Total Bilirubin 0.6 Direct Bilirubin 0.00 Indirect Bilirubin 0.6 Aspartate Amino 101 H Transf (AST/SGOT) Alanine 57 Aminotransferase (A LT/SGPT) Alkaline 430 H Phosphatase Total Protein 4.7 L Albumin 2.5 L Globulin 2.20 Albumin/Globulin 1.13 Ratio Lab Scanned Report BLOOD TRANSFUSION Stool Occult Blood POSITIVE Home Meds Reported Medications [Pomi-T] No Conflict Check 08/16/18 Multivitamin/Iron/Folic Acid (Centrum Adults Tablet) 1 Each Tablet, 1 EACH PO, TAB 08/16/18 Dutasteride* (Avodart*) 0.5 Mg Capsule, 0.5 MG PO DAILY, CAP 08/16/18 Bicalutamide* (Bicalutamide*) 50 Mg Tablet, 50 MG PO DAILY, TAB 08/16/18 Sodium Chloride (Sodium Chloride) 1 Gm Granules, 1 GM MC 08/16/18 Vitamin E* (Vitamin E*) 200 Unit Capsule, 180 MG PO DAILY, CAP 08/16/18 Folic Acid* (Folic Acid*) 1 Mg Tablet, 1 MG PO DAILY, TAB 08/16/18 Memantine* (Namenda* XR) 28 Mg Cap.spr.24, 28 MG PO DAILY, #30 TAB 08/16/18 Tamsulosin Hcl* (Flomax*) 0.4 Mg Cap.er.24h, 0.4 MG PO DAILY, CAP 08/16/18 Nitrofurantoin Monohyd Macrocr* (Macrobid*) 100 Mg Capsr, 100 MG PO BID, CAP 08/16/18 Medications Current Medications Miscellaneous Information ([facility]) This patient tabares... PRN PRN XX WOUND CARE; Start 08/16/18 at 20:00 Acetaminophen (Tylenol Tab) 500 mg Q4H PRN PO MILD PAIN(1-3)OR ELEVATED TEMP Last administered on 08/21/18 21:07; Admin Dose 500 MG; Start 08/16/18 at 20:00 Ascorbic Acid (Vitamin C) 500 mg BID GTB Last administered on 08/25/18 10:30; Admin Dose 500 MG; Start 08/16/18 at 21:00 Bicalutamide (Casodex) 50 mg DAILY PO ; Start 08/17/18 at 09:00; Status Hold Metoprolol Tartrate (Lopressor) 25 mg BID PO Last administered on 08/25/18 10:31; Admin Dose 25 MG; Start 08/17/18 at 21:00 Fish Oil (Fish Oil) 1,000 mg BID PO Last administered on 08/25/18 10:30; Admin Dose 1,000 MG; Start 08/18/18 at 14:00 Norepinephrine 250 ml @ 1.875 mls/ hr TITRATE IV Last administered on 08/19/18 11:59; Admin Dose 1.875 MLS/HR; Start 08/19/18 at 11:00 Albuterol (Ventolin Hfa) 4 puff Q4H RESP THERAPY INH Last administered on 08/25/18 08:06; Admin Dose 4 PUFF; Start 08/19/18 at 17:00 Ipratropium [place] (Atrovent Hfa) 4 puff Q4 INH Last administered on 08/25/18 08:06; Admin Dose 4 PUFF; Start 08/19/18 at 17:00 Lactated Ringer's 1,000 ml @ 70 mls/hr [id number] IV Last administered on 08/24/18 17:17; Admin Dose 70 MLS/HR; Start 08/19/18 at 14:00 Phenylephrine HCl 40 mg/Dextrose 250 ml @ 37.5 mls/hr TITRATE IV Last administered on 08/22/18 00:09; Admin Dose 26.25 MLS/HR; Start 08/19/18 at 14:00 Methenamine (Hiprex) 1 gm BID GTB Last administered on 08/25/18 10:29; Admin Dose 1 GM; Start 08/20/18 at 21:00 Prenat Multivit/ [place]/Iron/Folic Ac () 1 tab DAILY GTB Last administered on 08/25/18 10:30; Admin Dose 1 TAB; Start 08/21/18 at 09:00 Zinc Sulfate (Zinc Sulfate) 220 mg DAILY GTB Last administered on 08/25/18 10:29; Admin Dose 220 MG; Start 08/21/18 at 09:00 Finasteride (Proscar) 5 mg DAILY GTB Last administered on 08/25/18 10:29; Admin Dose 5 MG; Start 08/20/18 at 10:00 Morphine Sulfate (morphine) 1 mg Q4H PRN IV SEVERE PAIN LEVEL 7-10; Start at 12:00 Cefepime HCl 50 ml @ 100 mls/hr Q12 IVPB Last administered on 08/25/18 10:29; Admin Dose 100 MLS/HR; Start 08/21/18 at 14:27 Assessment/Plan Assessment/Plan (Daily) IMP: 1. Acute Hypercapnic/Hypoxemic Respiratory Failure 2/2 L mainstem mucus plugging with complete left lung atelectasis s/p intubation. Resulting positive pressure ventilation thereafter likely led to a right-sided pneumothorax with tension physiology. 2. Tension PTX--resolved 3. Complete Left Lung ATX--2/2 mucus plugging, now re-expanded. 4. Intermittent PSVT--resolved 5. Right lung pneumonia--likely aspiration 6. UTI 7. 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 Prostate Cancer 9. Severe Cachexia/deconditioning 10.Pancytopenia 11. GIB RECS: 1. I had a long meeting with family regarding the path forward for Mr. Camacho. I explained to them that his underlying condition--the widespread metastatic cancer--is not reversible and is terminal. He is now stabilized compared to last weekend, though the major limitation to extubation is his reduced mental status and inability to protect his airway. I explained to them that they need agree, as a family, to make hin DNR/DNI. At that point, if he does pass weaning trial on the vent, extubation would be reasonable, recognizing that if he fails (immediately or days later), to transition to comfort measures. They need a bit more time to discuss this as a family, and will get back to us. 40 min cc time VLADIMIR AGGARWAL MD August 25, 2018 12:54
[2018-08-25] MEDS: LACTATED RINGER'S 1,000 ML IV SCH (13:15)
--- NOTE | 2018-08-25 13:17 | CONS ---
Assessment/Plan Assessment/Plan Hospital Course (Demo Recall) IMPRESSION: 1. Abnormal electrocardiogram, assess for acute coronary syndrome.-neg trop x 2. NL EF by echo this admit 2. Cardiac arrhythmia at this time, most consistent with sinus arrhythmia.-mild tachycardia, sinus arrythmia. NL TSH- now with increased S tachycardia today-? due to pain/resp distress/anxiety/hypotension 3. Hypotension-now off neosynephrine 4. Dysphagia, status post PEG placement today. 5. Failure to thrive. 6. History of prostate carcinoma. 7. History of aplastic anemia-currently improved 8. Hypernatremia. 10. Pancytopenia-currently overall improved Hgb 11. Resp failure s/p intubation 12. Pleural effusion s/p thoracentesis c/b PTX with CT now 14. PNA Recc: -ICU -serial ecg's -follow Hgb closely and transfuse as necessary -Continue avodart -Follow CT output -Continue abx's and f/u cx data -Follow volume status -Follow HR/BP closely -s/p albumin infusion x 2 -toleratiing low dose BB -wean vent as tolerated -Ongoing discussion with family about code status Consultation Date/Type/Reason Admit Date/Time Aug 17, 2018 at 09:51 Initial Consult Date 08/17/18 Type of Consult Cardiology Reason for Consultation cardiac arrythmia Requesting Provider: SANIA WHITTINGTON MD Date/Time of Note DATE: 08/25/18 TIME: 13:14 Exam/Review of Systems Vital Signs Vitals Vital Signs Date Temp Pulse Resp B/P (MAP) Pulse Ox O2 O2 Flow FiO2 Time Delivery Rate 08/25/18 80 12:00 08/25/18 16 122/57 100 Mechanical 06:00 (78) Ventilator 08/25/18 30 05:19 08/25/18 97.5 04:00 Intake and Output 08/24/18 08/24/18 08/25/18 1515:00 23:00 07:00 IntakeIntake Total 2160 ml 1052.5 ml 1010 ml OutputOutput Total 2200 ml 705 ml 790 ml BalanceBalance -40 ml 347.5 ml 220 ml Exam Exam Review of Systems: CONSTITUTIONAL: No fevers, chills. PULMONARY: intubated CARDIOVASCULAR: No chest pain/palpitations GASTROINTESTINAL: No nausea/vomiting. GENITOURINARY: No hematuria/dysuria. MUSCULOSKELETAL: No myagias/arthalgias. PSYCHIATRIC: The patient denies depression. NEUROLOGIC: encephalopathic Constitutional: other (encephalopathic) Psych: no complaints Head: normocephalic ENMT: mucosa pink and moist Neck: supple, jvd (9 cm water) Respiratory: diminished breath sounds (at bases/B) Cardiovascular: regular rate and rhythm Gastrointestinal: soft, non-tender Musculoskeletal: muscle weakness (generalized) Extremities: edema (none) Neurological: other (encephalopathic) Labs Result Diagram: 08/25/18 0330 08/25/18 0330 Results 24hrs Laboratory Tests Test 08/24/18 17:15 08/25/18 03:30 08/25/18 05:04 08/25/18 09:00 Pathologist YES Review (Hematology) Body Fluid Type Body Fluid Volume 1050.0 Body Fluid Color PREETI Body Fluid HAZY Appearance Body Fluid WBC 145 Body Fluid RBC 1000 (Auto) Body Fluid 31.7 Polynuclear WBCs (%) Body Fluid 68.3 Mononuclear Cells % Auto Body Fluid Total 2.1 Protein Body Fluid 481 Lactate Dehydrogena se White Blood Count 3.8 #L Red Blood Count 3.83 #L Hemoglobin 10.9 #L Hematocrit 32.3 #L Mean Corpuscular 84.3 Volume Mean Corpuscular 28.5 L Hemoglobin Mean Corpuscular 33.7 Hemoglobin Concent Red Cell 16.3 H Distribution Width Platelet Count 77 L Mean Platelet 11.5 H Volume Immature 18.000 H Granulocytes % Neutrophils % Segmented 62 Neutrophils % (Manual) Band Neutrophils % 4 (Manual) Lymphocytes % Lymphocytes % 16 (Manual) Reactive 1 H Lymphocytes % (Manual) Monocytes % Monocytes % 4 (Manual) Eosinophils % Basophils % Metamyelocytes % 2 H (manual) Myelocytes % 9 H (Manual) Promyelocytes % 1 H (Manual) Plasma Cells % 1 (manual) Nucleated Red Blood 9 H Cells % Immature 0.690 H Granulocytes # Neutrophils # Neutrophils # 2.4 (Manual) Band Neutrophils # 0.1 Lymphocytes 0.6 L (Manual) Lymphocytes # Reactive 0.0 Lymphocytes # Monocytes # Monocytes # 0.1 L (Manual) Eosinophils # Basophils # Metamyelocytes # 0.0 Myelocytes # 0.3 H Promyelocytes # 0.0 Plasma Cells # 0.0 (manual) Nucleated Red Blood Cells # Toxic Granulation 2+ Platelet Estimate DECREASED Giant Platelets 5 H Polychromasia 1+ Hypochromasia 1+ Poikilocytosis 1+ Anisocytosis 1+ Microcytosis 1+ Macrocytosis 1+ Sodium Level 141 Potassium Level 4.1 Chloride Level 111 H Carbon Dioxide 26 Level Anion Gap 4 L Blood Urea Nitrogen 28 H Creatinine 0.30 L Est Glomerular Filtrat Rate mL/min Glucose Level 134 # Calcium Level 7.8 L Total Bilirubin 0.6 Direct Bilirubin 0.00 Indirect Bilirubin 0.6 Aspartate Amino 101 H Transf (AST/SGOT) Alanine 57 Aminotransferase (A LT/SGPT) Alkaline 430 H Phosphatase Total Protein 4.7 L Albumin 2.5 L Globulin 2.20 Albumin/Globulin 1.13 Ratio Lab Scanned Report BLOOD TRANSFUSION Stool Occult Blood POSITIVE Medications Medications Current Medications Miscellaneous Information (Pending [facility] Order For Wound Care) This patient tabares... PRN PRN XX WOUND CARE; Start 08/16/18 at 20:00 Acetaminophen (Tylenol Tab) 500 mg Q4H PRN PO MILD PAIN(1-3)OR ELEVATED TEMP Last administered on 08/21/18at 21:07; Admin Dose 500 MG; Start 08/16/18 at 20:00 Ascorbic Acid (Vitamin C) 500 mg BID GTB Last administered on 08/25/18 10:30; Admin Dose 500 MG; Start 08/16/18 at 21:00 Bicalutamide (Casodex) 50 mg DAILY PO ; Start 08/17/18 at 09:00; Status Hold Metoprolol Tartrate (Lopressor) 25 mg BID PO Last administered on 08/25/18 10:31; Admin Dose 25 MG; Start 08/17/18 at 21:00 Fish Oil (Fish Oil) 1,000 mg BID PO Last administered on 08/25/18 10:30; Admin Dose 1,000 MG; Start 08/18/18 at 14:00 Norepinephrine 250 ml @ 1.875 mls/ hr TITRATE IV Last administered on 08/19/18at 11:59; Admin Dose 1.875 MLS/HR; Start 08/19/18 at 11:00 Albuterol (Ventolin Hfa) 4 puff Q4H RESP THERAPY INH Last administered on 08/25/18 08:06; Admin Dose 4 PUFF; Start 08/19/18 at 17:00 Ipratropium [place] (Atrovent Hfa) 4 puff Q4 INH Last administered on 08/25/18 08:06; Admin Dose 4 PUFF; Start 08/19/18 at 17:00 Lactated Ringer's 1,000 ml @ 70 mls/hr [id number] IV Last administered on 08/24/18 17:17; Admin Dose 70 MLS/HR; Start 08/19/18 at 14:00 Phenylephrine HCl 40 mg/Dextrose 250 ml @ 37.5 mls/hr TITRATE IV Last admi nistered on 08/22/18 00:09; Admin Dose 26.25 MLS/HR; Start 08/19/18 at 14:00 Methenamine (Hiprex) 1 gm BID GTB Last administered on 08/25/18 10:29; Admin Dose 1 GM; Start 08/20/18 at 21:00 Prenat Multivit/ Informatics Scientist/Iron/Folic Ac () 1 tab DAILY GTB Last administered on 08/25/18 10:30; Admin Dose 1 TAB; Start 08/21/18 at 09:00 Zinc Sulfate (Zinc Sulfate) 220 mg DAILY GTB Last administered on 08/25/18 10:29; Admin Dose 220 MG; Start 08/21/18 at 09:00 Finasteride (Proscar) 5 mg DAILY GTB Last administered on 08/25/18 10:29; Admin Dose 5 MG; Start 08/20/18 at 10:00 Morphine Sulfate (morphine) 1 mg Q4H PRN IV SEVERE PAIN LEVEL 7-10; Start 08/21/18 at 12:00 Cefepime HCl 50 ml @ 100 mls/hr Q12 IVPB Last administered on 08/25/18 10:29; Admin Dose 100 MLS/HR; Start 08/21/18 at 14:27 LUIS ALBERTO EDWARD August 25, 2018 13:17
--- NOTE | 2018-08-25 14:01 | PN ---
Date/Time of Note Date/Time of Note DATE: 08/25/18 TIME: 13:59 Assessment/Plan Lines/Catheters IV Catheter Type (from Nrsg): Central Line Villanueva in Place (from Nrsg): Yes Assessment/Plan Assessment/Plan Respiratory failure Lateral pleural effusions Chest tube draining about 2 to 300 cc daily Left-sided mild to moderate pleural effusion Coagulopathy corrected mostly And receives platelet count is now up to 74 He is on his second units of packed RBCs for hemoglobin of 10 I had a long discussion with the patients family SP thoracentesis on the left side Will wean for possible extubation and may be hospice if not successful Discussed at length with the patient's family and the referring physician Subjective 24 Hr Interval Summary Constitutional: improved Pain Control: mild Exam/Review of Systems Vital Signs Vitals Vital Signs Date Temp Pulse Resp B/P (MAP) Pulse Ox O2 O2 Flow FiO2 Time Delivery Rate 08/25/18 80 12:00 08/25/18 16 122/57 100 Mechanical 06:00 (78) Ventilator 08/25/18 30 05:19 08/25/18 97.5 04:00 Intake and Output 08/24/18 08/24/18 08/25/18 1515:00 23:00 07:00 IntakeIntake Total 2160 ml 1052.5 ml 1010 ml OutputOutput Total 2200 ml 705 ml 790 ml BalanceBalance -40 ml 347.5 ml 220 ml Exam Eyes: nl conjunctiva, EOMI, nl lids, nl sclera ENMT: nl external ears & nose, nl lips & teeth, nl nasal mucosa & septum, mucosa pink and moist Neck: supple, non-tender Respiratory: clear to auscultation, normal air movement Cardiovascular: regular rate and rhythm, nl pulses Gastrointestinal: soft, nl liver, spleen, non-tender Musculoskeletal: nl extremities to inspection, nl gait and stance Results Result Diagram: 08/25/1832908/25/18329 MARY CARMEN GREER MD August 25, 2018 14:01
[2018-08-25] MEDS ORDERED: ACETAMINOPHEN 1000MG/100ML IV 100 ML IVPB ONE (15:00)
[2018-08-25] MEDS: PANTOPRAZOLE 40 MG INJ IV SCH (15:23)
--- NOTE | 2018-08-25 15:40 | CONS ---
Assessment/Plan Assessment/Plan Assessment/Plan (Daily) 87 yo male with prostate cancer with possible bone mets presents with failure to thrive and malnutrition. S/P PEG 08/[address] Rueda Interval hx: Pt still intubated. Tolerating tube feeds at 30cc with no residuals 1. Dysphagia -GJ tube 2. Failure to thrive. 3. Alzheimer disease. 4. 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 Also metastasis in the lung and also in the liver. Patient's PSA is greater than thousand 5. Hypertension. 6. Acute hypoxemic hypercarbic respiratory failure. -s/p chest tube placement and intubation 7. Encephalopathy 8. Anemia with downward trend -retic 2.2, Iron and percent sat wnl, TIBC low, ferritin high 9. S/P thoracentesis with lymphocytic exudate -pending cytology 10. UTI 11. Encephalopathy, as per the son patient responds to command 12. Pancytopenia secondary to metastatic prostate cancer PLAN: Supportive ICU care FOB pending Ok to increase TF to 60cc/hr, monitor residuals q 6 hours, check phos in am Monitor electrolytes for refeeding syndrome Continue with erythromycin Abdominal binder Continue with IV hydration until pt is at goal Continue antibiotic for his UTI and possible pneumonia Case discussed with the son and mom Hopefully we can extubate the patient Weaning is in process Tylenol for the pain and the PPI Consultation Date/Type/Reason Admit Date/Time Aug 17, 2018 at 09:51 Initial Consult Date 08/21/18 Requesting Provider: SANIA WHITTINGTON MD Date/Time of Note DATE: 08/25/18 TIME: 15:39 24 HR Interval Summary Subjective hx not possible: pt non-verbal Constitutional: no complaints, improved Exam/Review of Systems Exam Vitals Vital Signs Date Temp Pulse Resp B/P (MAP) Pulse Ox O2 O2 Flow FiO2 Time Delivery Rate 08/25/18 80 12:00 08/25/18 16 122/57 100 Mechanical 06:00 (78) Ventilator 08/25/18 30 05:19 08/25/18 97.5 04:00 Intake and Output 08/24/18 08/24/18 08/25/18 1515:00 23:00 07:00 IntakeIntake Total 2160 ml 1052.5 ml 1010 ml OutputOutput Total 2200 ml 705 ml 790 ml BalanceBalance -40 ml 347.5 ml 220 ml ENMT: intubated Respiratory: diminished breath sounds Musculoskeletal: nl extremities to inspection Extremities: normal pulses Results Result Diagram: 08/25/18 0330 08/25/18 0330 Results 24hrs Laboratory Tests Test 08/24/18 17:15 08/25/18 03:30 08/25/18 05:04 08/25/18 09:00 Pathologist YES Review (Hematology) Body Fluid Type Body Fluid Volume 1050.0 Body Fluid Color PREETI Body Fluid HAZY Appearance Body Fluid WBC 145 Body Fluid RBC 1000 (Auto) Body Fluid 31.7 Polynuclear WBCs (%) Body Fluid 68.3 Mononuclear Cells % Auto Body Fluid Total 2.1 Protein Body Fluid 481 Lactate Dehydrogena se White Blood Count 3.8 #L Red Blood Count 3.83 #L Hemoglobin 10.9 #L Hematocrit 32.3 #L Mean Corpuscular 84.3 Volume Mean Corpuscular 28.5 L Hemoglobin Mean Corpuscular 33.7 Hemoglobin Concent Red Cell 16.3 H Distribution Width Platelet Count 77 L Mean Platelet 11.5 H Volume Immature 18.000 H Granulocytes % Neutrophils % Segmented 62 Neutrophils % (Manual) Band Neutrophils % 4 (Manual) Lymphocytes % Lymphocytes % 16 (Manual) Reactive 1 H Lymphocytes % (Manual) Monocytes % Monocytes % 4 (Manual) Eosinophils % Basophils % Metamyelocytes % 2 H (manual) Myelocytes % 9 H (Manual) Promyelocytes % 1 H (Manual) Plasma Cells % 1 (manual) Nucleated Red Blood 9 H Cells % Immature 0.690 H Granulocytes # Neutrophils # Neutrophils # 2.4 (Manual) Band Neutrophils # 0.1 Lymphocytes 0.6 L (Manual) Lymphocytes # Reactive 0.0 Lymphocytes # Monocytes # Monocytes # 0.1 L (Manual) Eosinophils # Basophils # Metamyelocytes # 0.0 Myelocytes # 0.3 H Promyelocytes # 0.0 Plasma Cells # 0.0 (manual) Nucleated Red Blood Cells # Toxic Granulation 2+ Platelet Estimate DECREASED Giant Platelets 5 H Polychromasia 1+ Hypochromasia 1+ Poikilocytosis 1+ Anisocytosis 1+ Microcytosis 1+ Macrocytosis 1+ Sodium Level 141 Potassium Level 4.1 Chloride Level 111 H Carbon Dioxide 26 Level Anion Gap 4 L Blood Urea Nitrogen 28 H Creatinine 0.30 L Est Glomerular Filtrat Rate mL/min Glucose Level 134 # Calcium Level 7.8 L Total Bilirubin 0.6 Direct Bilirubin 0.00 Indirect Bilirubin 0.6 Aspartate Amino 101 H Transf (AST/SGOT) Alanine 57 Aminotransferase (A LT/SGPT) Alkaline 430 H Phosphatase Total Protein 4.7 L Albumin 2.5 L Globulin 2.20 Albumin/Globulin 1.13 Ratio Lab Scanned Report BLOOD TRANSFUSION Stool Occult Blood POSITIVE Medications Medication Current Medications Miscellaneous Information [facility] This patient tabares... PRN PRN XX WOUND CARE; Start 08/16/18 at 20:00 Acetaminophen (Tylenol Tab) 500 mg Q4H PRN PO MILD PAIN(1-3)OR ELEVATED TEMP Last administered on 08/21/18 21:07; Admin Dose 500 MG; Start 08/16/18 at 20:00 Ascorbic Acid (Vitamin C) 500 mg BID GTB Last administered on 08/25/18 10:30; Admin Dose 500 MG; Start 08/16/18 at 21:00 Bicalutamide (Casodex) 50 mg DAILY PO ; Start 08/17/18 at 09:00; Status Hold Metoprolol Tartrate (Lopressor) 25 mg BID PO Last administered on 08/25/18 10:31; Admin Dose 25 MG; Start 08/17/18 at 21:00 Fish Oil (Fish Oil) 1,000 mg BID PO Last administered on 08/25/18 10:30; Admin Dose 1,000 MG; Start 08/18/18 at 14:00 Norepinephrine 250 ml @ 1.875 mls/ hr TITRATE IV Last administered on 08/19/18 11:59; Admin Dose 1.875 MLS/HR; Start 08/19/18 at 11:00 Albuterol (Ventolin Hfa) 4 puff Q4H RESP THERAPY INH Last administered on 08/25/18 08:06; Admin Dose 4 PUFF; Start 08/19/18 at 17:00 Ipratropium [place] (Atrovent Hfa) 4 puff Q4 INH Last administered on 08/25/18 08:06; Admin Dose 4 PUFF; Start 08/19/18 at 17:00 Lactated Ringer's 1,000 ml @ 70 mls/hr [id number] IV Last administered on 08/25/18 13:15; Admin Dose 70 MLS/HR; Start 08/19/18 at 14:00 Phenylephrine HCl 40 mg/Dextrose 250 ml @ 37.5 mls/hr TITRATE IV Last administered on 08/22/18 00:09; Admin Dose 26.25 MLS/HR; Start 08/19/18 at 14:00 Methenamine (Hiprex) 1 gm BID GTB Last administered on 08/25/18 10:29; Admin Dose 1 GM; Start 08/20/18 at 21:00 Prenat Multivit/ [place]/Iron/Folic Ac () 1 tab DAILY GTB Last administered on 08/25/18 10:30; Admin Dose 1 TAB; Start 08/21/18 at 09:00 Zinc Sulfate (Zinc Sulfate) 220 mg DAILY GTB Last administered on 08/25/18 1 0:29; Admin Dose 220 MG; Start 08/21/18 at 09:00 Finasteride (Proscar) 5 mg DAILY GTB Last administered on 08/25/18 10:29; Admin Dose 5 MG; Start 08/20/18 at 10:00 Morphine Sulfate (morphine) 1 mg Q4H PRN IV SEVERE PAIN LEVEL 7-10; Start 08/21/18 at 12:00 Cefepime HCl 50 ml @ 100 mls/hr Q12 IVPB Last administered on 08/25/18 10:29; Admin Dose 100 MLS/HR; Start 08/21/18 at 14:27 Pantoprazole (Protonix Iv) 40 mg DAILY@06 IV Last administered on 08/25/18 15:23; Admin Dose 40 MG; Start 08/25/18 at 15:00 AILIN RUEDA MD August 25, 2018 15:40
--- NOTE | 2018-08-25 17:14 | EN ---
Date/Time of Note Date/Time of Note DATE: 08/25/18 TIME: 17:11 Event Note Medicine Medicine Event Note I met with Mr. Camacho's family again. They would like him extubated. He is tolerating CPAP though his mental status precludes him from effectively protecting his airway. They are aware of this and do not want him reintubated or for him to undergo any heroic efforts. With that said, if he does have respiratory distress, they would first like to try non-invasive oxygen delivery via high-flow or BiPAP, and only transition to comfort, if he continues to have increased [id number] and distress despite such non-invasive interventions. VLADIMIR AGGARWAL MD August 25, 2018 17:14
--- NOTE | 2018-08-25 19:45 | CONS ---
Assessment/Plan Assessment/Plan Hospital Course (Demo Recall) # sepsis, SIRS, resp - septic shock due to UTI plus SIRS due to possible aspiration, pneumothorax, improved - septic shock due to UTI - SIRS due to possible aspiration pneumonitis - probable aspiration pneumonitis - pneumonia vs. colonization of the airway due to enterobacter - b/l pleural effusion - s/p R sided thoracentesis on 08/17/2018. LDH 499, protein 3.2, WBC 89 with 6.8% neutrophils. Cultures of the fluid are negative; no malignant cells by cytology - s/p L sided thoracentesis on 08/24/2018. LDH 481, protein 2.1, WBC 345 with 31.7% neutrophils - s/p R PTX - s/p placement of R chest tube on 08/19/2018 - acute hypoxic resp failure - s/p intubation on 08/19/2018 # , heme/onc - UTI due to pseudomonas - prostate CA, with probable mets to the lungs and liver (based on CT result) - h/o recent chemotherapy for his prostate CA frequent UTI prior to admission. Pt was on long-term antibiotic for prophylaxis according to Pt's son - pancytopenia # GI, alimentary - transaminitis, probably a combination of liver metastasis and shock liver - moderately distended gallbladder with a moderate amount of sludge on liver SAKINA on 08/22/2018 - liver mets on liver SAKINA on 08/22/2018 - s/p failure to thrive - s/p placement of G-J tube on 08/16/2018 # other conditions - Alzheimer's dementia - acute metabolic encephalopathy recommendations - pending: cultures of b/l pleural effusion - continue cefepime (08/21/2018-) for enterobacter and pseudomonas, plan to finish tomorrow - I recommend changing the femoral line to PICC if Pt will continue ICU level care. If not, I recommend its discontinuation - I discussed the management with Pt's daughter, RN Carley - the critical care time I took to care for this Pt today was from 1845 to 1915 Consultation Date/Type/Reason Admit Date/Time Aug 17, 2018 at 09:51 Initial Consult Date 08/21/18 Type of Consult ID Reason for Consultation UTI, HCAP Requesting Provider: SANIA WHITTINGTON MD Date/Time of Note DATE: 08/25/18 TIME: 19:40 24 HR Interval Summary Free Text/Dictation extubated Subjective hx not possible: pt non-verbal, pt critical, pt critical status Exam/Review of Systems Exam Vitals Vital Signs Date Temp Pulse Resp B/P (MAP) Pulse Ox O2 O2 Flow FiO2 Time Delivery Rate 08/25/18 78 18 100 30 17:25 08/25/18 122/57 Mechanical 06:00 (78) Ventilator 08/25/18 97.5 04:00 Intake and Output 08/24/18 08/24/18 08/25/18 1515:00 23:00 07:00 IntakeIntake Total 2160 ml 1052.5 ml 1010 ml OutputOutput Total 2200 ml 705 ml 790 ml BalanceBalance -40 ml 347.5 ml 220 ml Constitutional: frail Psych: confusion, other (lethargic) Head: atraumatic, other (bitemporal wasting) Eyes: nl conjunctiva, nl lids ENMT: nl external ears & nose, nl nasal mucosa & septum Neck: other (not swollen) Respiratory: diminished breath sounds Cardiovascular: regular rate and rhythm, nl pulses Gastrointestinal: soft, non-tender, other (GT); No distended Genitourinary - Male: other (FC) Musculoskeletal: other (bitemporal wasting) Extremities: edema, pitting pedal edema Neurological: lethargic Skin: rash or lesions (petechiae) Results Result Diagram: 08/25/18 0330 08/25/18 0330 Results 24hrs Laboratory Tests Test 08/25/18 03:30 08/25/18 05:04 08/25/18 09:00 White Blood Count 3.8 #L Red Blood Count 3.83 #L Hemoglobin 10.9 #L Hematocrit 32.3 #L Mean Corpuscular Volume 84.3 Mean Corpuscular Hemoglobin 28.5 L Mean Corpuscular 33.7 Hemoglobin Concent Red Cell Distribution Width 16.3 H Platelet Count 77 L Mean Platelet Volume 11.5 H Immature Granulocytes % 18.000 H Neutrophils % Segmented Neutrophils % (Manual) 62 Band Neutrophils % (Manual) 4 Lymphocytes % Lymphocytes % (Manual) 16 Reactive Lymphocytes % (Manual) 1 H Monocytes % Monocytes % (Manual) 4 Eosinophils % Basophils % Metamyelocytes % (manual) 2 H Myelocytes % (Manual) 9 H Promyelocytes % (Manual) 1 H Plasma Cells % (manual) 1 Nucleated Red Blood Cells % 9 H Immature Granulocytes # 0.690 H Neutrophils # Neutrophils # (Manual) 2.4 Band Neutrophils # 0.1 Lymphocytes (Manual) 0.6 L Lymphocytes # Reactive Lymphocytes # 0.0 Monocytes # Monocytes # (Manual) 0.1 L Eosinophils # Basophils # Metamyelocytes # 0.0 Myelocytes # 0.3 H Promyelocytes # 0.0 Plasma Cells # (manual) 0.0 Nucleated Red Blood Cells # Toxic Granulation 2+ Platelet Estimate DECREASED Giant Platelets 5 H Polychromasia 1+ Hypochromasia 1+ Poikilocytosis 1+ Anisocytosis 1+ Microcytosis 1+ Macrocytosis 1+ Sodium Level 141 Potassium Level 4.1 Chloride Level 111 H Carbon Dioxide Level 26 Anion Gap 4 L Blood Urea Nitrogen 28 H Creatinine 0.30 L Est Glomerular Filtrat Rate mL/min Glucose Level 134 # Calcium Level 7.8 L Total Bilirubin 0.6 Direct Bilirubin 0.00 Indirect Bilirubin 0.6 Aspartate Amino Transf (AST/SGOT) 101 H Alanine 57 Aminotransferase (ALT/SGPT) Alkaline Phosphatase 430 H Total Protein 4.7 L Albumin 2.5 L Globulin 2.20 Albumin/Globulin Ratio 1.13 Lab Scanned Report BLOOD TRANSFUSION Stool Occult Blood POSITIVE Medications Medication Current Medications Miscellaneous Information (Pending [facility] Order For Wound Care) This patient tabares... PRN PRN XX WOUND CARE; Start 08/16/18 at 20:00 Acetaminophen (Tylenol Tab) 500 mg Q4H PRN PO MILD PAIN(1-3)OR ELEVATED TEMP Last administered on 08/21/18at 21:07; Admin Dose 500 MG; Start 08/16/18 at 20:00 Ascorbic Acid (Vitamin C) 500 mg BID GTB Last administered on 08/25/18 10:30; Admin Dose 500 MG; Start 08/16/18 at 21:00 Bicalutamide (Casodex) 50 mg DAILY PO ; Start 08/17/18 at 09:00; Status Hold Metoprolol Tartrate (Lopressor) 25 mg BID PO Last administered on 08/25/18 10:31; Admin Dose 25 MG; Start 08/17/18 at 21:00 Fish Oil (Fish Oil) 1,000 mg BID PO Last administered on 08/25/18 10:30; Admin Dose 1,000 MG; Start 08/18/18 at 14:00 Norepinephrine 250 ml @ 1.875 mls/ hr TITRATE IV Last administered on 08/19/18 11:59; Admin Dose 1.875 MLS/HR; Start 08/19/18 at 11:00 Albuterol (Ventolin Hfa) 4 puff Q4H RESP THERAPY INH Last administered on 08/25/18 17:51; Admin Dose 4 PUFF; Start 08/19/18 at 17:00 Ipratropium [place] (Atrovent Hfa) 4 puff Q4 INH Last administered on 08/25/18 17:50; Admin Dose 4 PUFF; Start 08/19/18 at 17:00 Lactated Ringer's 1,000 ml @ 70 mls/hr [id number] IV Last administered on 08/25/18 13:15; Admin Dose 70 MLS/HR; Start 08/19/18 at 14:00 Phenylephrine HCl 40 mg/Dextrose 250 ml @ 37.5 mls/hr TITRATE IV Last administered on 08/22/18 00:09; Admin Dose 26.25 MLS/HR; Start 08/19/18 at 14:00 Methenamine (Hiprex) 1 gm BID GTB Last administered on 08/25/18 10:29; Admin Dose 1 GM; Start 08/20/18 at 21:00 Prenat Multivit/ [place]/Iron/Folic Ac () 1 tab DAILY GTB Last administered on 08/25/18 10:30; Admin Dose 1 TAB; Start 08/21/18 at 09:00 Zinc Sulfate (Zinc Sulfate) 220 mg DAILY GTB Last administered on 08/25/18 10:29; Admin Dose 220 MG; Start 08/21/18 at 09:00 Finasteride (Proscar) 5 mg DAILY GTB Last administered on 08/25/18 10:29; Admin Dose 5 MG; Start 08/20/18 at 10:00 Morphine Sulfate (morphine) 1 mg Q4H PRN IV SEVERE PAIN LEVEL 7-10; Start 08/21/18 at 12:00 Cefepime HCl 50 ml @ 100 mls/hr Q12 IVPB Last administered on 08/25/18 10:29; Admin Dose 100 MLS/HR; Start 08/21/18 at 14:27 Pantoprazole (Protonix Iv) 40 mg DAILY@06 IV Last administered on 08/25/18at 15:23; Admin Dose 40 MG; Start 08/25/18 at 15:00 JC LAMBERT M.D. August 25, 2018 19:45
[2018-08-26] VITALS (25 sets, daily range): BP systolic 99–136; BP diastolic 40–81; PULSE 75–121; RESP 21–29
--- NOTE | 2018-08-26 01:58 | PN ---
DATE: 08/24/2018 SUBJECTIVE AND INTERVAL HISTORY: Follow up on acute respiratory failure, possible pneumonia and meta static prostate cancer, urinary tract infection, dysphagia. The patient opens his eyes spontaneously . The patient remains intubated. The patient is off vasopressor. Patient did not have any vomiting , no reported bleeding from any site. The patient is tolerating G-tube feeding. No reported tempera ture spike. OBJECTIVE: GENERAL: Lethargic, spontaneously blinking. VITAL SIGNS: Temperature 97.7, pulse 73, respirations 20, blood pressure 99/44. Patient is currentl y on FIO2 of 40%, saturating 100% and is on full vent support. HEENT: No eye discharge or redness. Nose is normal. NECK: No mass, no JVD. CHEST: Diminished air entry at bases. No retractions. CARDIOVASCULAR: Patient is in sinus rhythm. No murmur, gallop, rub. ABDOMEN: Soft. G-tube in place. EXTREMITIES: No edema or cyanosis. NEUROLOGIC: The patient is lethargic. CARDIAC: No useful communication possible. The patient spontaneously is blinking. The patient has generalized weakness. LABORATORY DATA: Done on 08/2018: WBC 3, hemoglobin 6.5, platelets 74, 17% bands. Sodium 143, pota ssium 3.3, BUN 32, creatinine 0.4, glucose 89, calcium 8.1, AST 106, ALT 47, alkaline phosphatase 235 . IMAGING: Recent chest x-ray revealed right-sided chest tube with left-sided pleural effusion. IMPRESSION AND PLAN: 1. Acute respiratory failure secondary to pulmonary mass and possible pneumonia and bilateral effusi on. Continue vent support and wean as tolerated. Continue chest tube. The patient was seen by Dr. Ayers from cardiothoracic standpoint and plan was to do thoracentesis on the left side in an atte mpt to improve respiratory status and then further extubation. The family would then take him home [facility]. I spoke with Dr. Serge Perez from interventional radiology standpoint who is about to b egin bedside thoracentesis. 2. Urinary tract infection. Continue IV cefepime 3. Metastatic breast prostate cancer, poor prognosis. The patient was seen by Dr. Jared jansen nd Dr. Lucia Chaidez, both have recommended comfort care. Family, however, has not made up their mind yet. 4. Anemia. The patient does look pale and frail and will be given a couple of units of PRBC. 5. Pancytopenia, probably due to metastatic prostate cancer. Continue to monitor. No further treat ment at this time. 6. Dysphagia. Continue tube feeding. 7. Acute kidney injury. BUN has improved from 40 now down to 32 after increasing the IV fluid rate. Patient also has mild hypokalemia for which patient will be given potassium. Plan of care discussed with nursing staff. We will continue to follow. The patient remains critical ly ill and intubated. Family is aware of poor prognosis. Dictated By: SANIA REZA/MORENO Conf#: [id number] DID#: [id number]
[2018-08-26] MEDS: LACTATED RINGER'S 1,000 ML IV SCH ×2 (04:59→20:30)
[2018-08-26] MEDS: PANTOPRAZOLE 40 MG INJ IV SCH (05:00)
[2018-08-26] MEDS: CEFEPIME 1GM/50 ML IVPB SCH (09:13)
[2018-08-26] MEDS: FISH OIL 1,000 MG CAP PO SCH ×2 (09:13→20:29)
[2018-08-26] MEDS: ASCORBIC ACID 500 MG TAB GTB SCH ×2 (09:13→20:28)
[2018-08-26] MEDS: ZINC SULFATE 220 MG CAP GTB SCH (09:14)
[2018-08-26] MEDS: PRENATAL VITAMIN GTB SCH (09:14)
[2018-08-26] MEDS: METOPROLOL 25 MG TAB PO SCH ×2 (09:14→20:29)
[2018-08-26] MEDS: FINASTERIDE 5 MG TAB GTB SCH (09:15)
[2018-08-26] MEDS: METHENAMINE 1 GM TAB GTB SCH ×2 (09:15→20:27)
[2018-08-26] MEDS: BALSAM PERU/CASTOR OIL 60 GM TUBE TOP SCH ×2 (09:15→20:29)
--- NOTE | 2018-08-26 10:01 | CONS ---
Consult Date/Type/Reason Admit Date/Time Aug 17, 2018 at 09:51 Initial Consult Date 08/17/18 Type of Consultation: Pulm/CCM Requesting Provider: SANIA WHITTINGTON MD Date/Time of Note DATE: 08/26/18 TIME: 09:55 Subjective Tolerated extubation yesterday. No air-leak from right CT noted. Mental status remains poor. Objective Vitals Vital Signs Date Temp Pulse Resp B/P (MAP) Pulse Ox O2 O2 Flow FiO2 Time Delivery Rate 08/26/18 96 08:00 08/26/18 2.0 06:06 08/26/18 22 108/53 100 Nasal 05:00 (71) Cannula 08/26/18 97.8 04:00 08/25/18 40 20:00 Intake and Output 08/25/18 08/25/18 08/26/18 1515:00 23:00 07:00 IntakeIntake Total 652.5 ml 1060 ml 857.5 ml OutputOutput Total 325 ml 845 ml 740 ml BalanceBalance 327.5 ml 215 ml 117.5 ml Exam HEENT: Neck supple; no JVD; no LAD: CVS: RRR, S1 and S2 CHEST: Clear anteriorly ABD: Soft, NT, + BS EXT: No c/c/e NEURO: Lethargic; moving all extremities. Results/Medications Result Diagram: 08/26/18 0500 08/26/18 0500 Results 24 hrs Laboratory Tests Test 08/26/18 05:00 White Blood Count 4.2 L Red Blood Count 3.56 L Hemoglobin 10.2 L Hematocrit 30.3 L Mean Corpuscular Volume 85.1 Mean Corpuscular Hemoglobin 28.7 L Mean Corpuscular Hemoglobin Concent 33.7 Red Cell Distribution Width 17.2 H Platelet Count 78 L Mean Platelet Volume 11.6 H Immature Granulocytes % 18.900 H Neutrophils % 61.6 Segmented Neutrophils % (Manual) 68 Band Neutrophils % (Manual) 9 H Lymphocytes % 13.1 L Lymphocytes % (Manual) 14 L Monocytes % 3.8 Eosinophils % 0.7 Basophils % 1.9 Metamyelocytes % (manual) 4 H Myelocytes % (Manual) 1 H Promyelocytes % (Manual) 3 H Plasma Cells % (manual) 1 Nucleated Red Blood Cells % 6 H Immature Granulocytes # 0.790 H Neutrophils # 2.6 Neutrophils # (Manual) 2.9 Band Neutrophils # 0.3 Lymphocytes (Manual) 0.5 L Lymphocytes # 0.6 L Monocytes # 0.2 L Eosinophils # 0.0 Basophils # 0.1 Metamyelocytes # 0.1 H Myelocytes # 0.0 Promyelocytes # 0.1 H Plasma Cells # (manual) 0.0 Nucleated Red Blood Cells # 0.2 H Toxic Granulation 2+ Platelet Estimate DECREASED Giant Platelets 4 H Polychromasia 1+ Poikilocytosis 2+ Anisocytosis 1+ Ovalocytes 1+ Blood Gas Specimen Source Blood arterial Arterial Blood Date Drawn 08/26/2018 5:00:38 AM Arterial Blood pH (Temp corrected) 7.491 H Arterial Blood pCO2 (Temp correct) 30.3 L Arterial Blood pO2 (Temp corrected) 103.6 H Arterial Blood HCO3 22.6 Arterial Blood Base Excess 0 Arterial Blood Oxygen Saturation 97.8 Jarod Test ACCEPTAB Arterial Blood Gas Puncture Site Right Radial Arterial Blood Carboxyhemoglobin 0.3 Arterial Blood Methemoglobin 0.3 Blood Gas A-a O2 Differential 60.3 H Oxyhemoglobin Percent 97.2 Blood Gas Temperature 37.0 Blood Gas Modality NASAL CANNULA FiO2 28.0 Blood Gas Notified Whom MA Blood Gas Notified Time 08/26/2018 5:15:10 AM Sodium Level 140 Potassium Level 3.8 Chloride Level 111 H Carbon Dioxide Level 27 Anion Gap 2 L Blood Urea Nitrogen 24 H Creatinine 0.30 L Est Glomerular Filtrat Rate mL/min Glucose Level 128 Calcium Level 8.3 L Total Bilirubin 0.5 Direct Bilirubin 0.00 Indirect Bilirubin 0.5 Aspartate Amino Transf (AST/SGOT) 64 H Alanine Aminotransferase (ALT/SGPT) 45 Alkaline Phosphatase 386 H Total Protein 4.5 L Albumin 2.2 L Globulin 2.30 Albumin/Globulin Ratio 0.95 Home Meds Reported Medications [Pomi-T] No Conflict Check 08/16/18 Multivitamin/Iron/Folic Acid (Centrum Adults Tablet) 1 Each Tablet, 1 EACH PO, TAB 08/16/18 Dutasteride* (Avodart*) 0.5 Mg Capsule, 0.5 MG PO DAILY, CAP 08/16/18 Bicalutamide* (Bicalutamide*) 50 Mg Tablet, 50 MG PO DAILY, TAB 08/16/18 Sodium Chloride (Sodium Chloride) 1 Gm Granules, 1 GM MC 08/16/18 Vitamin E* (Vitamin E*) 200 Unit Capsule, 180 MG PO DAILY, CAP 08/16/18 Folic Acid* (Folic Acid*) 1 Mg Tablet, 1 MG PO DAILY, TAB 08/16/18 Memantine* (Namenda* XR) 28 Mg Cap.spr.24, 28 MG PO DAILY, #30 TAB 08/16/18 Tamsulosin Hcl* (Flomax*) 0.4 Mg Cap.er.24h, 0.4 MG PO DAILY, CAP 08/16/18 Nitrofurantoin Monohyd Macrocr* (Macrobid*) 100 Mg Capsr, 100 MG PO BID, CAP 08/16/18 Medications Current Medications Miscellaneous Information (Pending [facility] Order For Wound Care) This patient tabares... PRN PRN XX WOUND CARE; Start 08/16/18 at 20:00 Acetaminophen (Tylenol Tab) 500 mg Q4H PRN PO MILD PAIN(1-3)OR ELEVATED TEMP Last administered on 08/21/18at 21:07; Admin Dose 500 MG; Start 08/16/18 at 20:00 Ascorbic Acid (Vitamin C) 500 mg BID GTB Last administered on 08/26/18at 09:13; Admin Dose 500 MG; Start 08/16/18 at 21:00 Bicalutamide (Casodex) 50 mg DAILY PO ; Start 08/17/18 at 09:00; Status Hold Metoprolol Tartrate (Lopressor) 25 mg BID PO Last administered on 08/26/18at 09:14; Admin Dose 25 MG; Start 08/17/18 at 21:00 Fish Oil (Fish Oil) 1,000 mg BID PO Last administered on 08/26/18at 09:13; Admin Dose 1,000 MG; Start 08/18/18 at 14:00 Norepinephrine 250 ml @ 1.875 mls/ hr TITRATE IV Last administered on 08/19/18at 11:59; Admin Dose 1.875 MLS/HR; Start 08/19/18 at 11:00 Lactated Ringer's 1,000 ml @ 70 mls/hr [id number] IV Last administered on 08/26/18at 04:59; Admin Dose 70 MLS/HR; Start 08/19/18 at 14:00 Phenylephrine HCl 40 mg/Dextrose 250 ml @ 37.5 mls/hr TITRATE IV Last administered on 08/22/18 00:09; Admin Dose 26.25 MLS/HR; Start 08/19/18 at 14:00 Methenamine (Hiprex) 1 gm BID GTB Last administered on 08/26/18 09:15; Admin Dose 1 GM; Start 08/20/18 at 21:00 Prenat Multivit/ [place]/Iron/Folic Ac () 1 tab DAILY GTB Last administered on 08/26/18 09:14; Admin Dose 1 TAB; Start 08/21/18 at 09:00 Zinc Sulfate (Zinc Sulfate) 220 mg DAILY GTB Last administered on 08/26/18 09:14; Admin Dose 220 MG; Start 08/21/18 at 09:00 Finasteride (Proscar) 5 mg DAILY GTB Last administered on 08/26/18 09:15; Admin Dose 5 MG; Start 08/20/18 at 10:00 Morphine Sulfate (morphine) 1 mg Q4H PRN IV SEVERE PAIN LEVEL 7-10; Start 08/21/18 at 12:00 Cefepime HCl 50 ml @ 100 mls/hr Q12 IVPB Last administered on 08/26/18 09:13; Admin Dose 100 MLS/HR; Start 08/21/18 at 14:27 Pantoprazole (Protonix Iv) 40 mg DAILY@06 IV Last administered on 08/26/18 05:00; Admin Dose 40 MG; Start 08/25/18 at 15:00 Assessment/Plan Assessment/Plan (Daily) IMP: 1. Acute Hypercapnic/Hypoxemic Respiratory Failure 2/2 L mainstem mucus plugging with complete left lung atelectasis s/p intubation. Resulting positive pressure ventilation thereafter likely led to a right-sided pneumothorax with tension physiology--now extubated. 2. Tension PTX--resolved 3. Complete Left Lung ATX--2/2 mucus plugging, now re-expanded. 4. Intermittent PSVT--resolved 5. Right lung pneumonia--likely aspiration 6. UTI 7. 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 Prostate Cancer 9. Severe Cachexia/deconditioning 10.Pancytopenia 11.GIB 12.DNR/DNI RECS: 1. Strict aspiration precautions; HOB > 30 2. Suctioning/CPT as needed 3. Place right chest tube to H20 seal; if AM CXR shows no pneumothorax, may d/c tube 4. Continue TF's/free H20 5. Avoid all sedatives/narcotics 35 min cc time VLADIMIR AGGARWAL MD August 26, 2018 10:01
--- NOTE | 2018-08-26 11:12 | CONS ---
Assessment/Plan Assessment/Plan Assessment/Plan (Daily) 1. acute prerenal azotemia 2. Septic shock 2/2 UTI 3. right sided pneumothorax s/p R chest tube placement 4. acute hypoxemic respiratory failure intubated on ventilator 5. Metastatic prostate CA 6. Dysphagia s/p G tube placement 7. UTI with Urine cx growign Pseudomonas Plan : Conitnue IV abx cefepime, Renally dose all abx and monitor electrolytes IVF LR at 70 cc/hr BUN/Cr 24/0.3, Other electrolytes stable Right Chest tube in case- still draining ; connected to water seal drainage now Pulmonary has been following for ventilator care ID following will follow up Patient is seen in collaboration with Dr Niels Rodrigues Consultation Date/Type/Reason Admit Date/Time Aug 17, 2018 at 09:51 Initial Consult Date 08/23/18 Type of Consult NEPHROLOGY Reason for Consultation Acute Prerenal Azotemia Requesting Provider: SANIA WHITTINGTON MD Date/Time of Note DATE: 08/26/18 TIME: 11:03 24 HR Interval Summary Subjective hx not possible: pt non-verbal Constitutional: requiring IVF, requiring O2 Exam/Review of Systems Exam Vitals Vital Signs Date Temp Pulse Resp B/P (MAP) Pulse Ox O2 O2 Flow FiO2 Time Delivery Rate 08/26/18 96 08:00 08/26/18 2.0 06:06 08/26/18 22 108/53 100 Nasal 05:00 (71) Cannula 08/26/18 97.8 04:00 08/25/18 40 20:00 Intake and Output 08/25/18 08/25/18 08/26/18 1515:00 23:00 07:00 IntakeIntake Total 652.5 ml 1060 ml 857.5 ml OutputOutput Total 325 ml 845 ml 740 ml BalanceBalance 327.5 ml 215 ml 117.5 ml Constitutional: well developed, non-verbal, frail Psych: nl mood/affect Eyes: nl lids, nl sclera ENMT: nl external ears & nose Neck: jvd Respiratory: diminished breath sounds (blateral at bases) Cardiovascular: nl pulses, other (s1s2) Gastrointestinal: soft, non-tender, other (GT intact) Musculoskeletal: muscle weakness Extremities: normal pulses Neurological: unresponsive Results Result Diagram: 08/26/18 0500 08/26/18 0500 Results 24hrs Laboratory Tests Test 08/26/18 05:00 White Blood Count 4.2 L Red Blood Count 3.56 L Hemoglobin 10.2 L Hematocrit 30.3 L Mean Corpuscular Volume 85.1 Mean Corpuscular Hemoglobin 28.7 L Mean Corpuscular Hemoglobin Concent 33.7 Red Cell Distribution Width 17.2 H Platelet Count 78 L Mean Platelet Volume 11.6 H Immature Granulocytes % 18.900 H Neutrophils % 61.6 Segmented Neutrophils % (Manual) 68 Band Neutrophils % (Manual) 9 H Lymphocytes % 13.1 L Lymphocytes % (Manual) 14 L Monocytes % 3.8 Eosinophils % 0.7 Basophils % 1.9 Metamyelocytes % (manual) 4 H Myelocytes % (Manual) 1 H Promyelocytes % (Manual) 3 H Plasma Cells % (manual) 1 Nucleated Red Blood Cells % 6 H Immature Granulocytes # 0.790 H Neutrophils # 2.6 Neutrophils # (Manual) 2.9 Band Neutrophils # 0.3 Lymphocytes (Manual) 0.5 L Lymphocytes # 0.6 L Monocytes # 0.2 L Eosinophils # 0.0 Basophils # 0.1 Metamyelocytes # 0.1 H Myelocytes # 0.0 Promyelocytes # 0.1 H Plasma Cells # (manual) 0.0 Nucleated Red Blood Cells # 0.2 H Toxic Granulation 2+ Platelet Estimate DECREASED Giant Platelets 4 H Polychromasia 1+ Poikilocytosis 2+ Anisocytosis 1+ Ovalocytes 1+ Blood Gas Specimen Source Blood arterial Arterial Blood Date Drawn 08/26/2018 5:00:38 AM Arterial Blood pH (Temp corrected) 7.491 H Arterial Blood pCO2 (Temp correct) 30.3 L Arterial Blood pO2 (Temp corrected) 103.6 H Arterial Blood HCO3 22.6 Arterial Blood Base Excess 0 Arterial Blood Oxygen Saturation 97.8 Jarod Test ACCEPTAB Arterial Blood Gas Puncture Site Right Radial Arterial Blood Carboxyhemoglobin 0.3 Arterial Blood Methemoglobin 0.3 Blood Gas A-a O2 Differential 60.3 H Oxyhemoglobin Percent 97.2 Blood Gas Temperature 37.0 Blood Gas Modality NASAL CANNULA FiO2 28.0 Blood Gas Notified Whom MA Blood Gas Notified Time 08/26/2018 5:15:10 AM Sodium Level 140 Potassium Level 3.8 Chloride Level 111 H Carbon Dioxide Level 27 Anion Gap 2 L Blood Urea Nitrogen 24 H Creatinine 0.30 L Est Glomerular Filtrat Rate mL/min Glucose Level 128 Calcium Level 8.3 L Total Bilirubin 0.5 Direct Bilirubin 0.00 Indirect Bilirubin 0.5 Aspartate Amino Transf (AST/SGOT) 64 H Alanine Aminotransferase (ALT/SGPT) 45 Alkaline Phosphatase 386 H Total Protein 4.5 L Albumin 2.2 L Globulin 2.30 Albumin/Globulin Ratio 0.95 Medications Medication Current Medications Miscellaneous Information (Pending [facility] Order For Wound Care) This patient tabares... PRN PRN XX WOUND CARE; Start 08/16/18 at 20:00 Acetaminophen (Tylenol Tab) 500 mg Q4H PRN PO MILD PAIN(1-3)OR ELEVATED TEMP Last administered on 08/21/18 21:07; Admin Dose 500 MG; Start 08/16/18 at 20:00 Ascorbic Acid (Vitamin C) 500 mg BID GTB Last administered on 08/26/18 09:13; Admin Dose 500 MG; Start 08/16/18 at 21:00 Bicalutamide (Casodex) 50 mg DAILY PO ; Start 08/17/18 at 09:00; Status Hold Metoprolol Tartrate (Lopressor) 25 mg BID PO Last administered on 08/26/18 09:14; Admin Dose 25 MG; Start 08/17/18 at 21:00 Fish Oil (Fish Oil) 1,000 mg BID PO Last administered on 08/26/18 09:13; Admin Dose 1,000 MG; Start 08/18/18 at 14:00 Norepinephrine 250 ml @ 1.875 mls/ hr TITRATE IV Last administered on 08/19/18 11:59; Admin Dose 1.875 MLS/HR; Start 08/19/18 at 11:00 Lactated Ringer's 1,000 ml @ 70 mls/hr [id number] IV Last administered on 08/26/18 04:59; Admin Dose 70 MLS/HR; Start 08/19/18 at 14:00 Phenylephrine HCl 40 mg/Dextrose 250 ml @ 37.5 mls/hr TITRATE IV Last administered on 08/22/18 00:09; Admin Dose 26.25 MLS/HR; Start 08/19/18 at 14:00 Methenamine (Hiprex) 1 gm BID GTB Last administered on 08/26/18 09:15; Admin Dose 1 GM; Start 08/20/18 at 21:00 Prenat Multivit/ [place]/Iron/Folic Ac () 1 tab DAILY GTB Last administered on 08/26/18 09:14; Admin Dose 1 TAB; Start 08/21/18 at 09:00 Zinc Sulfate (Zinc Sulfate) 220 mg DAILY GTB Last administered on 08/26/18 09:14; Admin Dose 220 MG; Start 08/21/18 at 09:00 Finasteride (Proscar) 5 mg DAILY GTB Last administered on 08/26/18 09:15; Admin Dose 5 MG; Start 08/20/18 at 10:00 Morphine Sulfate (morphine) 1 mg Q4H PRN IV SEVERE PAIN LEVEL 7-10; Start 08/21/18 at 12:00 Cefepime HCl 50 ml @ 100 mls/hr Q12 IVPB Last administered on 08/26/18 09:13; Admin Dose 100 MLS/HR; Start 08/21/18 at 14:27 Pantoprazole (Protonix Iv) 40 mg DAILY@06 IV Last administered on 08/26/18at 05:00; Admin Dose 40 MG; Start 08/25/18 at 15:00 VIRY CASTILLO August 26, 2018 11:12
--- NOTE | 2018-08-26 12:18 | PN ---
Date/Time of Note Date/Time of Note DATE: 08/26/18 TIME: 12:17 Assessment/Plan VTE Prophylaxis Risk score (from [facility]0 risk: 12 SCD applied (from [facility]): Yes Pharmacological prophylaxis: LMWH Lines/Catheters IV Catheter Type (from [facility]): Central Line Central line still needed: Yes Urinary Cath still in place: Yes Reason Cath still needed: skin wounds contaminated by urine Assessment/Plan Hospital Course 1. Acute respiratory failure. Continue vent support. The patient has failed multiple weaning trials. Continue breathing treatment. Plan is to attempt a PleurX catheter and then remove chest tube and then resume weaning trials. 2. Possible pneumonia and urinary tract infection. Continue IV cefepime. 3. Metastatic prostate cancer, poor prognosis. Continue Casodex. 4. Dysphagia. Continue G-tube feeding. 5. Mildly elevated BUN. The patient's IV fluid rate had been increased. The patient has a preserved ejection fraction on echocardiogram. The patient remains critically ill. I met with the patient's son and daughter and goals of care discussed with them in detail including code status, hospice care and comfort care. They recommended to continue weaning trial and continue current treatment. They do not want DNR at this time, but we will discuss with the family members. We will continue current treatment with supportive care. Result Diagram: 08/26/18 0500 08/26/18 0500 Results 24hrs Laboratory Tests Test 08/26/18 05:00 White Blood Count 4.2 L Red Blood Count 3.56 L Hemoglobin 10.2 L Hematocrit 30.3 L Mean Corpuscular Volume 85.1 Mean Corpuscular Hemoglobin 28.7 L Mean Corpuscular Hemoglobin Concent 33.7 Red Cell Distribution Width 17.2 H Platelet Count 78 L Mean Platelet Volume 11.6 H Immature Granulocytes % 18.900 H Neutrophils % 61.6 Segmented Neutrophils % (Manual) 68 Band Neutrophils % (Manual) 9 H Lymphocytes % 13.1 L Lymphocytes % (Manual) 14 L Monocytes % 3.8 Eosinophils % 0.7 Basophils % 1.9 Metamyelocytes % (manual) 4 H Myelocytes % (Manual) 1 H Promyelocytes % (Manual) 3 H Plasma Cells % (manual) 1 Nucleated Red Blood Cells % 6 H Immature Granulocytes # 0.790 H Neutrophils # 2.6 Neutrophils # (Manual) 2.9 Band Neutrophils # 0.3 Lymphocytes (Manual) 0.5 L Lymphocytes # 0.6 L Monocytes # 0.2 L Eosinophils # 0.0 Basophils # 0.1 Metamyelocytes # 0.1 H Myelocytes # 0.0 Promyelocytes # 0.1 H Plasma Cells # (manual) 0.0 Nucleated Red Blood Cells # 0.2 H Toxic Granulation 2+ Platelet Estimate DECREASED Giant Platelets 4 H Polychromasia 1+ Poikilocytosis 2+ Anisocytosis 1+ Ovalocytes 1+ Blood Gas Specimen Source Blood arterial Arterial Blood Date Drawn 08/26/2018 5:00:38 AM Arterial Blood pH (Temp corrected) 7.491 H Arterial Blood pCO2 (Temp correct) 30.3 L Arterial Blood pO2 (Temp corrected) 103.6 H Arterial Blood HCO3 22.6 Arterial Blood Base Excess 0 Arterial Blood Oxygen Saturation 97.8 Jarod Test ACCEPTAB Arterial Blood Gas Puncture Site Right Radial Arterial Blood Carboxyhemoglobin 0.3 Arterial Blood Methemoglobin 0.3 Blood Gas A-a O2 Differential 60.3 H Oxyhemoglobin Percent 97.2 Blood Gas Temperature 37.0 Blood Gas Modality NASAL CANNULA FiO2 28.0 Blood Gas Notified Whom MA Blood Gas Notified Time 08/26/2018 5:15:10 AM Sodium Level 140 Potassium Level 3.8 Chloride Level 111 H Carbon Dioxide Level 27 Anion Gap 2 L Blood Urea Nitrogen 24 H Creatinine 0.30 L Est Glomerular Filtrat Rate mL/min Glucose Level 128 Calcium Level 8.3 L Total Bilirubin 0.5 Direct Bilirubin 0.00 Indirect Bilirubin 0.5 Aspartate Amino Transf (AST/SGOT) 64 H Alanine Aminotransferase (ALT/SGPT) 45 Alkaline Phosphatase 386 H Total Protein 4.5 L Albumin 2.2 L Globulin 2.30 Albumin/Globulin Ratio 0.95 Subjective 24 Hr Interval Summary Free Text/Dictation Patient extubated, doing well on nasal cannula Exam/Review of Systems Exam Vitals Vital Signs Date Temp Pulse Resp B/P (MAP) Pulse Ox O2 O2 Flow FiO2 Time Delivery Rate 08/26/18 80 21 103/45 100 Nasal 2.0 11:00 (64) Cannula 08/26/18 99.1 08:00 08/25/18 40 20:00 Intake and Output 08/25/18 08/25/18 08/26/18 1515:00 23:00 07:00 IntakeIntake Total 652.5 ml 1060 ml 857.5 ml OutputOutput Total 325 ml 845 ml 740 ml BalanceBalance 327.5 ml 215 ml 117.5 ml Constitutional: well developed Head: normocephalic, atraumatic Neck: supple Respiratory: clear to auscultation Cardiovascular: regular rate and rhythm Gastrointestinal: soft, non-tender Extremities: normal pulses Results Results 24hrs Laboratory Tests Test 08/26/18 05:00 White Blood Count 4.2 L Red Blood Count 3.56 L Hemoglobin 10.2 L Hematocrit 30.3 L Mean Corpuscular Volume 85.1 Mean Corpuscular Hemoglobin 28.7 L Mean Corpuscular Hemoglobin Concent 33.7 Red Cell Distribution Width 17.2 H Platelet Count 78 L Mean Platelet Volume 11.6 H Immature Granulocytes % 18.900 H Neutrophils % 61.6 Segmented Neutrophils % (Manual) 68 Band Neutrophils % (Manual) 9 H Lymphocytes % 13.1 L Lymphocytes % (Manual) 14 L Monocytes % 3.8 Eosinophils % 0.7 Basophils % 1.9 Metamyelocytes % (manual) 4 H Myelocytes % (Manual) 1 H Promyelocytes % (Manual) 3 H Plasma Cells % (manual) 1 Nucleated Red Blood Cells % 6 H Immature Granulocytes # 0.790 H Neutrophils # 2.6 Neutrophils # (Manual) 2.9 Band Neutrophils # 0.3 Lymphocytes (Manual) 0.5 L Lymphocytes # 0.6 L Monocytes # 0.2 L Eosinophils # 0.0 Basophils # 0.1 Metamyelocytes # 0.1 H Myelocytes # 0.0 Promyelocytes # 0.1 H Plasma Cells # (manual) 0.0 Nucleated Red Blood Cells # 0.2 H Toxic Granulation 2+ Platelet Estimate DECREASED Giant Platelets 4 H Polychromasia 1+ Poikilocytosis 2+ Anisocytosis 1+ Ovalocytes 1+ Blood Gas Specimen Source Blood arterial Arterial Blood Date Drawn 08/26/2018 5:00:38 AM Arterial Blood pH (Temp corrected) 7.491 H Arterial Blood pCO2 (Temp correct) 30.3 L Arterial Blood pO2 (Temp corrected) 103.6 H Arterial Blood HCO3 22.6 Arterial Blood Base Excess 0 Arterial Blood Oxygen Saturation 97.8 Jarod Test ACCEPTAB Arterial Blood Gas Puncture Site Right Radial Arterial Blood Carboxyhemoglobin 0.3 Arterial Blood Methemoglobin 0.3 Blood Gas A-a O2 Differential 60.3 H Oxyhemoglobin Percent 97.2 Blood Gas Temperature 37.0 Blood Gas Modality NASAL CANNULA FiO2 28.0 Blood Gas Notified Whom MA Blood Gas Notified Time 08/26/2018 5:15:10 AM Sodium Level 140 Potassium Level 3.8 Chloride Level 111 H Carbon Dioxide Level 27 Anion Gap 2 L Blood Urea Nitrogen 24 H Creatinine 0.30 L Est Glomerular Filtrat Rate mL/min Glucose Level 128 Calcium Level 8.3 L Total Bilirubin 0.5 Direct Bilirubin 0.00 Indirect Bilirubin 0.5 Aspartate Amino Transf (AST/SGOT) 64 H Alanine Aminotransferase (ALT/SGPT) 45 Alkaline Phosphatase 386 H Total Protein 4.5 L Albumin 2.2 L Globulin 2.30 Albumin/Globulin Ratio 0.95 Medications Medication Current Medications M[facility] This patient tabares... PRN PRN XX WOUND CARE; Start 08/16/18 at 20:00 Acetaminophen (Tylenol Tab) 500 mg Q4H PRN PO MILD PAIN(1-3)OR ELEVATED TEMP Last administered on 08/21/18 21:07; Admin Dose 500 MG; Start 08/16/18 at 20:00 Ascorbic Acid (Vitamin C) 500 mg BID GTB Last administered on 08/26/18 09:13; Admin Dose 500 MG; Start 08/16/18 at 21:00 Bicalutamide (Casodex) 50 mg DAILY PO ; Start 08/17/18 at 09:00; Status Hold Metoprolol Tartrate (Lopressor) 25 mg BID PO Last administered on 08/26/18 09:14; Admin Dose 25 MG; Start 08/17/18 at 21:00 Fish Oil (Fish Oil) 1,000 mg BID PO Last administered on 08/26/18 09:13; Admin Dose 1,000 MG; Start 08/18/18 at 14:00 Norepinephrine 250 ml @ 1.875 mls/ hr TITRATE IV Last administered on 08/19/18 11:59; Admin Dose 1.875 MLS/HR; Start 08/19/18 at 11:00 Lactated Ringer's 1,000 ml @ 70 mls/hr [id number] IV Last administered on 08/26/18 04:59; Admin Dose 70 MLS/HR; Start 08/19/18 at 14:00 Phenylephrine HCl 40 mg/Dextrose 250 ml @ 37.5 mls/hr TITRATE IV Last administered on 08/22/18 00:09; Admin Dose 26.25 MLS/HR; Start 08/19/18 at 14:00 Methenamine (Hiprex) 1 gm BID GTB Last administered on 08/26/18 09:15; Admin Dose 1 GM; Start 08/20/18 at 21:00 Prenat Multivit/ [employer]/Iron/Folic Ac () 1 tab DAILY GTB Last administered on 08/26/18 09:14; Admin Dose 1 TAB; Start 08/21/18 at 09:00 Zinc Sulfate (Zinc Sulfate) 220 mg DAILY GTB Last administered on 08/26/18 09:14; Admin Dose 220 MG; Start 08/21/18 at 09:00 Finasteride (Proscar) 5 mg DAILY GTB Last administered on 08/26/18 09:15; Admin Dose 5 MG; Start 08/20/18 at 10:00 Morphine Sulfate (morphine) 1 mg Q4H PRN IV SEVERE PAIN LEVEL 7-10; Start 08/21/18 at 12:00 Cefepime HCl 50 ml @ 100 mls/hr Q12 IVPB Last administered on 08/26/18 09:13; Admin Dose 100 MLS/HR; Start 08/21/18 at 14:27 Pantoprazole (Protonix Iv) 40 mg DAILY@06 IV Last administered on 08/26/18 05:00; Admin Dose 40 MG; Start 08/25/18 at 15:00 JOCELYN WELLER August 26, 2018 12:18
--- NOTE | 2018-08-26 12:33 | CONS ---
Assessment/Plan Assessment/Plan Hospital Course (Demo Recall) IMPRESSION: 1. Abnormal electrocardiogram, assess for acute coronary syndrome.-neg trop x 2. NL EF by echo this admit 2. Cardiac arrhythmia at this time, most consistent with sinus arrhythmia.-mild tachycardia, sinus arrythmia. NL TSH- now with increased S tachycardia today-? due to pain/resp distress/anxiety/hypotension 3. Hypotension-now off neosynephrine 4. Dysphagia, post-op status post PEG placement 5. Failure to thrive. 6. History of prostate carcinoma. 7. History of aplastic anemia-currently improved 8. Hypernatremia. 10. Pancytopenia-currently overall improved Hgb 11. Resp failure s/p extubation 12. Pleural effusion s/p thoracentesis c/b PTX with CT now 14. PNA Recc: -ICU -serial ecg's -follow Hgb closely and transfuse as necessary -Continue avodart -Follow CT output with possible ability to d/c today -Continue abx's and f/u cx data -Follow volume status -Follow HR/BP closely -s/p albumin infusion x 2 -toleratiing low dose BB -Ongoing discussion with family about code status -Follow resp status closely with frequent suctioning/BIPAP as necesarry Consultation Date/Type/Reason Admit Date/Time Aug 17, 2018 at 09:51 Initial Consult Date 08/17/18 Type of Consult Cardiology Reason for Consultation cardiac arrythmia Requesting Provider: SANIA WHITTINGTON MD Date/Time of Note DATE: 08/26/18 TIME: 12:29 Exam/Review of Systems Vital Signs Vitals Vital Signs Date Temp Pulse Resp B/P (MAP) Pulse Ox O2 O2 Flow FiO2 Time Delivery Rate 08/26/18 80 21 103/45 100 Nasal 2.0 11:00 (64) Cannula 08/26/18 99.1 08:00 08/25/18 40 20:00 Intake and Output 08/25/18 08/25/18 08/26/18 1515:00 23:00 07:00 IntakeIntake Total 652.5 ml 1060 ml 857.5 ml OutputOutput Total 325 ml 845 ml 740 ml BalanceBalance 327.5 ml 215 ml 117.5 ml Exam Exam Review of Systems: CONSTITUTIONAL: No fevers, chills. PULMONARY: No sob CARDIOVASCULAR: No chest pain/palpitations GASTROINTESTINAL: No nausea/vomiting. GENITOURINARY: No hematuria/dysuria. MUSCULOSKELETAL: No myagias/arthalgias. PSYCHIATRIC: The patient denies depression. NEUROLOGIC: lethargic Constitutional: alert Psych: no complaints Head: normocephalic ENMT: mucosa pink and moist Neck: supple Respiratory: diminished breath sounds (at bases/B) Cardiovascular: regular rate and rhythm Gastrointestinal: soft, non-tender Musculoskeletal: muscle weakness (generaliized) Extremities: edema (trace/B) Neurological: lethargic Labs Result Diagram: 08/26/18 0500 08/26/18 0500 Results 24hrs Laboratory Tests Test 08/26/18 05:00 White Blood Count 4.2 L Red Blood Count 3.56 L Hemoglobin 10.2 L Hematocrit 30.3 L Mean Corpuscular Volume 85.1 Mean Corpuscular Hemoglobin 28.7 L Mean Corpuscular Hemoglobin Concent 33.7 Red Cell Distribution Width 17.2 H Platelet Count 78 L Mean Platelet Volume 11.6 H Immature Granulocytes % 18.900 H Neutrophils % 61.6 Segmented Neutrophils % (Manual) 68 Band Neutrophils % (Manual) 9 H Lymphocytes % 13.1 L Lymphocytes % (Manual) 14 L Monocytes % 3.8 Eosinophils % 0.7 Basophils % 1.9 Metamyelocytes % (manual) 4 H Myelocytes % (Manual) 1 H Promyelocytes % (Manual) 3 H Plasma Cells % (manual) 1 Nucleated Red Blood Cells % 6 H Immature Granulocytes # 0.790 H Neutrophils # 2.6 Neutrophils # (Manual) 2.9 Band Neutrophils # 0.3 Lymphocytes (Manual) 0.5 L Lymphocytes # 0.6 L Monocytes # 0.2 L Eosinophils # 0.0 Basophils # 0.1 Metamyelocytes # 0.1 H Myelocytes # 0.0 Promyelocytes # 0.1 H Plasma Cells # (manual) 0.0 Nucleated Red Blood Cells # 0.2 H Toxic Granulation 2+ Platelet Estimate DECREASED Giant Platelets 4 H Polychromasia 1+ Poikilocytosis 2+ Anisocytosis 1+ Ovalocytes 1+ Blood Gas Specimen Source Blood arterial Arterial Blood Date Drawn 08/26/2018 5:00:38 AM Arterial Blood pH (Temp corrected) 7.491 H Arterial Blood pCO2 (Temp correct) 30.3 L Arterial Blood pO2 (Temp corrected) 103.6 H Arterial Blood HCO3 22.6 Arterial Blood Base Excess 0 Arterial Blood Oxygen Saturation 97.8 Jarod Test ACCEPTAB Arterial Blood Gas Puncture Site Right Radial Arterial Blood Carboxyhemoglobin 0.3 Arterial Blood Methemoglobin 0.3 Blood Gas A-a O2 Differential 60.3 H Oxyhemoglobin Percent 97.2 Blood Gas Temperature 37.0 Blood Gas Modality NASAL CANNULA FiO2 28.0 Blood Gas Notified Whom MA Blood Gas Notified Time 08/26/2018 5:15:10 AM Sodium Level 140 Potassium Level 3.8 Chloride Level 111 H Carbon Dioxide Level 27 Anion Gap 2 L Blood Urea Nitrogen 24 H Creatinine 0.30 L Est Glomerular Filtrat Rate mL/min Glucose Level 128 Calcium Level 8.3 L Total Bilirubin 0.5 Direct Bilirubin 0.00 Indirect Bilirubin 0.5 Aspartate Amino Transf (AST/SGOT) 64 H Alanine Aminotransferase (ALT/SGPT) 45 Alkaline Phosphatase 386 H Total Protein 4.5 L Albumin 2.2 L Globulin 2.30 Albumin/Globulin Ratio 0.95 Medications Medications Current Medications Miscellaneous [facility] This patient tabares... PRN PRN XX WOUND CARE; Start 08/16/18 at 20:00 Acetaminophen (Tylenol Tab) 500 mg Q4H PRN PO MILD PAIN(1-3)OR ELEVATED TEMP Last administered on 08/21/18 21:07; Admin Dose 500 MG; Start 08/16/18 at 20:00 Ascorbic Acid (Vitamin C) 500 mg BID GTB Last administered on 08/26/18 09:13; Admin Dose 500 MG; Start 08/16/18 at 21:00 Bicalutamide (Casodex) 50 mg DAILY PO ; Start 08/17/18 at 09:00; Status Hold Metoprolol Tartrate (Lopressor) 25 mg BID PO Last administered on 08/26/18 09:14; Admin Dose 25 MG; Start 08/17/18 at 21:00 Fish Oil (Fish Oil) 1,000 mg BID PO Last administered on 08/26/18 09:13; Admin Dose 1,000 MG; Start 08/18/18 at 14:00 Norepinephrine 250 ml @ 1.875 mls/ hr TITRATE IV Last administered on 08/19/18at 11:59; Admin Dose 1.875 MLS/HR; Start 08/19/18 at 11:00 Lactated Ringer's 1,000 ml @ 70 mls/hr [id number] IV Last administered on 08/26/18 04:59; Admin Dose 70 MLS/HR; Start 08/19/18 at 14:00 Phenylephrine HCl 40 mg/Dextrose 250 ml @ 37.5 mls/hr TITRATE IV Last administered on 08/22/18 00:09; Admin Dose 26.25 MLS/HR; Start 08/19/18 at 14:00 Methenamine (Hiprex) 1 gm BID GTB Last administered on 08/26/18 09:15; Admin Dose 1 GM; Start 08/20/18 at 21:00 Prenat Multivit/ [place]/Iron/Folic Ac () 1 tab DAILY GTB Last administered on 08/26/18 09:14; Admin Dose 1 TAB; Start 08/21/18 at 09:00 Zinc Sulfate (Zinc Sulfate) 220 mg DAILY GTB Last administered on 08/26/18 09:14; Admin Dose 220 MG; Start 08/21/18 at 09:00 Finasteride (Proscar) 5 mg DAILY GTB Last administered on 08/26/18 09:15; Admin Dose 5 MG; Start 08/20/18 at 10:00 Morphine Sulfate (morphine) 1 mg Q4H PRN IV SEVERE PAIN LEVEL 7-10; Start 08/21/18 at 12:00 Cefepime HCl 50 ml @ 100 mls/hr Q12 IVPB Last administered on 08/26/18 09:13; Admin Dose 100 MLS/HR; Start 08/21/18 at 14:27 Pantoprazole (Protonix Iv) 40 mg DAILY@06 IV Last administered on 08/26/18 05:00; Admin Dose 40 MG; Start 08/25/18 at 15:00 Cyanocobalamin (Vitamin B12 Inj) 1,000 mcg ONCE ONCE IM ; Start 08/26/18 at 13:00; Stop 08/26/18 at 13:01 LUIS ALBERTO EDWARD August 26, 2018 12:33
[2018-08-26] MEDS ORDERED: CYANOCOBALAMIN 1000 MCG INJ IM ONE (13:00)
--- NOTE | 2018-08-26 15:49 | CONS ---
Assessment/Plan Assessment/Plan Hospital Course (Demo Recall) # sepsis, SIRS, resp - septic shock due to UTI plus SIRS due to possible aspiration, pneumothorax, improved - septic shock due to UTI - SIRS due to possible aspiration pneumonitis - probable aspiration pneumonitis - pneumonia vs. colonization of the airway due to enterobacter - b/l pleural effusion - s/p R sided thoracentesis on 08/17/2018. LDH 499, protein 3.2, WBC 89 with 6.8% neutrophils. Cultures of the fluid are negative; no malignant cells by cytology - s/p L sided thoracentesis on 08/24/2018. LDH 481, protein 2.1, WBC 345 with 31.7% neutrophils - s/p R PTX - s/p placement of R chest tube on 08/19/2018 - acute hypoxic resp failure - s/p intubation on 08/19/2018 - s/p extubation on 08/25/2018 # , heme/onc - UTI due to pseudomonas - prostate CA, with probable mets to the lungs and liver (based on CT result) - h/o recent chemotherapy for his prostate CA - frequent UTI prior to admission. Pt was on long-term antibiotic for prophylaxis according to Pt's son - pancytopenia, improving # GI, alimentary - transaminitis, probably a combination of liver metastasis and shock liver - moderately distended gallbladder with a moderate amount of sludge on liver SAKINA on 08/22/2018 - liver mets on liver SAKINA on 08/22/2018 - s/p failure to thrive - s/p placement of G-J tube on 08/16/2018 # other conditions - Alzheimer's dementia - acute metabolic encephalopathy recommendations - end cefepime (08/21/2018-) for enterobacter and pseudomonas today - One of Pt's sons request that Pt be maintained on antibiotic as UTI prophylaxis; according to him, Pt has had multiple episodes of UTI. 2 weeks ago, he wasin septic shock due to UTI at [facility]. I discussed the pros and cons of antibiotic prophylaxis for UTI. I will start him on pGT ciprofloxacin - I recommend changing the femoral line to PICC if Pt will need a central line. If not, I recommend its discontinuation - I discussed the management with Pt's ALLY Barth.I discussed the management with Dr. Barcenas on 08/25/2018 - the critical care time I took to care for this Pt today was from 1445to 1530 Consultation Date/Type/Reason Admit Date/Time Aug 17, 2018 at 09:51 Initial Consult Date 08/21/18 Type of Consult ID Requesting Provider: SANIA WHITTINGTON MD Date/Time of Note DATE: 08/26/18 TIME: 15:43 24 HR Interval Summary Subjective hx not possible: pt non-verbal, pt critical, pt critical status Exam/Review of Systems Exam Vitals Vital Signs Date Temp Pulse Resp B/P (MAP) Pulse Ox O2 O2 Flow FiO2 Time Delivery Rate 08/26/18 94 12:00 08/26/18 21 103/45 100 Nasal 2.0 11:00 (64) Cannula 08/26/18 99.1 08:00 08/25/18 40 20:00 Intake and Output 08/25/18 08/25/18 08/26/18 1515:00 23:00 07:00 IntakeIntake Total 652.5 ml 1060 ml 927.5 ml OutputOutput Total 325 ml 845 ml 740 ml BalanceBalance 327.5 ml 215 ml 187.5 ml Constitutional: non-verbal, frail Psych: nl mood/affect, confusion Head: atraumatic, other (bitemporal wasting) Eyes: nl conjunctiva ENMT: nl external ears & nose, other (dry mucus membranes) Neck: other (not swollen) Respiratory: diminished breath sounds, other (+R chest tube to water seal) Cardiovascular: regular rate and rhythm, nl pulses, edema Gastrointestinal: soft, non-tender; No distended, No tender Genitourinary - Male: other (FC) Musculoskeletal: No swelling Extremities: edema, pitting pedal edema Neurological: lethargic Skin: ecchymosis, other (petechiaei) Results Result Diagram: 08/26/18 0500 08/26/18 0500 Results 24hrs Laboratory Tests Test 08/26/18 05:00 White Blood Count 4.2 L Red Blood Count 3.56 L Hemoglobin 10.2 L Hematocrit 30.3 L Mean Corpuscular Volume 85.1 Mean Corpuscular Hemoglobin 28.7 L Mean Corpuscular Hemoglobin Concent 33.7 Red Cell Distribution Width 17.2 H Platelet Count 78 L Mean Platelet Volume 11.6 H Immature Granulocytes % 18.900 H Neutrophils % 61.6 Segmented Neutrophils % (Manual) 68 Band Neutrophils % (Manual) 9 H Lymphocytes % 13.1 L Lymphocytes % (Manual) 14 L Monocytes % 3.8 Eosinophils % 0.7 Basophils % 1.9 Metamyelocytes % (manual) 4 H Myelocytes % (Manual) 1 H Promyelocytes % (Manual) 3 H Plasma Cells % (manual) 1 Nucleated Red Blood Cells % 6 H Immature Granulocytes # 0.790 H Neutrophils # 2.6 Neutrophils # (Manual) 2.9 Band Neutrophils # 0.3 Lymphocytes (Manual) 0.5 L Lymphocytes # 0.6 L Monocytes # 0.2 L Eosinophils # 0.0 Basophils # 0.1 Metamyelocytes # 0.1 H Myelocytes # 0.0 Promyelocytes # 0.1 H Plasma Cells # (manual) 0.0 Nucleated Red Blood Cells # 0.2 H Toxic Granulation 2+ Platelet Estimate DECREASED Giant Platelets 4 H Polychromasia 1+ Poikilocytosis 2+ Anisocytosis 1+ Ovalocytes 1+ Blood Gas Specimen Source Blood arterial Arterial Blood Date Drawn 08/26/2018 5:00:38 AM Arterial Blood pH (Temp corrected) 7.491 H Arterial Blood pCO2 (Temp correct) 30.3 L Arterial Blood pO2 (Temp corrected) 103.6 H Arterial Blood HCO3 22.6 Arterial Blood Base Excess 0 Arterial Blood Oxygen Saturation 97.8 Jarod Test ACCEPTAB Arterial Blood Gas Puncture Site Right Radial Arterial Blood Carboxyhemoglobin 0.3 Arterial Blood Methemoglobin 0.3 Blood Gas A-a O2 Differential 60.3 H Oxyhemoglobin Percent 97.2 Blood Gas Temperature 37.0 Blood Gas Modality NASAL CANNULA FiO2 28.0 Blood Gas Notified Whom MA Blood Gas Notified Time 08/26/2018 5:15:10 AM Sodium Level 140 Potassium Level 3.8 Chloride Level 111 H Carbon Dioxide Level 27 Anion Gap 2 L Blood Urea Nitrogen 24 H Creatinine 0.30 L Est Glomerular Filtrat Rate mL/min Glucose Level 128 Calcium Level 8.3 L Total Bilirubin 0.5 Direct Bilirubin 0.00 Indirect Bilirubin 0.5 Aspartate Amino Transf (AST/SGOT) 64 H Alanine Aminotransferase (ALT/SGPT) 45 Alkaline Phosphatase 386 H Total Protein 4.5 L Albumin 2.2 L Globulin 2.30 Albumin/Globulin Ratio 0.95 Medications Medication Current Medications Miscellaneous Information (Pending [place] Order For Wound Care) This patient tabares... PRN PRN XX WOUND CARE; Start 08/16/18 at 20:00 Acetaminophen (Tylenol Tab) 500 mg Q4H PRN PO MILD PAIN(1-3)OR ELEVATED TEMP L ast administered on 08/21/18 21:07; Admin Dose 500 MG; Start 08/16/18 at 20:00 Ascorbic Acid (Vitamin C) 500 mg BID GTB Last administered on 08/26/18 09:13; Admin Dose 500 MG; Start 08/16/18 at 21:00 Bicalutamide (Casodex) 50 mg DAILY PO ; Start 08/17/18 at 09:00; Status Hold Metoprolol Tartrate (Lopressor) 25 mg BID PO Last administered on 08/26/18 09:14; Admin Dose 25 MG; Start 08/17/18 at 21:00 Fish Oil (Fish Oil) 1,000 mg BID PO Last administered on 08/26/18 09:13; Admin Dose 1,000 MG; Start 08/18/18 at 14:00 Norepinephrine 250 ml @ 1.875 mls/ hr TITRATE IV Last administered on 08/19 11:59; Admin Dose 1.875 MLS/HR; Start 08/19/18 at 11:00 Lactated Ringer's 1,000 ml @ 70 mls/hr [id number] IV Last administered on 08/26/18 04:59; Admin Dose 70 MLS/HR; Start 08/19/18 at 14:00 Phenylephrine HCl 40 mg/Dextrose 250 ml @ 37.5 mls/hr TITRATE IV Last administered on 08/22/18 00:09; Admin Dose 26.25 MLS/HR; Start 08/19/18 at 14:00 Methenamine (Hiprex) 1 gm BID GTB Last administered on 08/26/18 09:15; Admin Dose 1 GM; Start 08/20/18 at 21:00 Prenat Multivit/ [place]/Iron/Folic Ac () 1 tab DAILY GTB Last administered on 08/26/18 09:14; Admin Dose 1 TAB; Start 08/21/18 at 09:00 Zinc Sulfate (Zinc Sulfate) 220 mg DAILY GTB Last administered on 08/26/18 09:14; Admin Dose 220 MG; Start 08/21/18 at 09:00 Finasteride (Proscar) 5 mg DAILY GTB Last administered on 08/26/18at 09:15; Admin Dose 5 MG; Start 08/20/18 at 10:00 Morphine Sulfate (morphine) 1 mg Q4H PRN IV SEVERE PAIN LEVEL 7-10; Start 08/21/18 at 12:00 Cefepime HCl 50 ml @ 100 mls/hr Q12 IVPB Last administered on 08/26/18at 09:13; Admin Dose 100 MLS/HR; Start 08/21/18 at 14:27 Pantoprazole (Protonix Iv) 40 mg DAILY@06 IV Last administered on 08/26/18at 05:00; Admin Dose 40 MG; Start 08/25/18 at 15:00 JC LAMBERT M.D. August 26, 2018 15:49
--- NOTE | 2018-08-26 15:59 | CONS ---
Assessment/Plan Assessment/Plan Assessment/Plan (Daily) 87 yo male with prostate cancer with possible bone mets presents with failure to thrive and malnutrition. S/P PEG 08/[address] Rueda Interval hx: Pt still intubated. Tolerating tube feeds at 30cc with no residuals 1. Dysphagia -GJ tube 2. Failure to thrive. 3. Alzheimer disease. 4. 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 Also metastasis in the lung and also in the liver. Patient's PSA is greater than thousand 5. Hypertension. 6. Acute hypoxemic hypercarbic respiratory failure. -s/p chest tube placement and intubation 7. Encephalopathy 8. Anemia with downward trend -retic 2.2, Iron and percent sat wnl, TIBC low, ferritin high 9. S/P thoracentesis with lymphocytic exudate -pending cytology 10. UTI 11. Encephalopathy, as per the son patient responds to command 12. Pancytopenia secondary to metastatic prostate cancer #13 Patient successfully extubated yesterday 08/25/2018 PLAN: Supportive ICU care FOB pending Ok to increase TF to 60cc/hr, monitor residuals q 6 hours, check phos in am Monitor electrolytes for refeeding syndrome Continue with erythromycin Abdominal binder Continue with IV hydration until pt is at goal Continue antibiotic for his UTI and possible pneumonia Case discussed with the son and mom Tylenol for the pain and the PPI Patient is on 2 L of oxygen and is comfortable Consultation Date/Type/Reason Admit Date/Time Aug 17, 2018 at 09:51 Initial Consult Date 08/21/18 Requesting Provider: SANIA WHITTINGTON MD Date/Time of Note DATE: 08/26/18 TIME: 15:58 24 HR Interval Summary Free Text/Dictation Patient is successfully extubated Constitutional: improved Exam/Review of Systems Exam Vitals Vital Signs Date Temp Pulse Resp B/P (MAP) Pulse Ox O2 O2 Flow FiO2 Time Delivery Rate 08/26/18 94 12:00 08/26/18 21 103/45 100 Nasal 2.0 11:00 (64) Cannula 08/26/18 99.1 08:00 08/25/18 40 20:00 Intake and Output 08/25/18 08/25/18 08/26/18 1515:00 23:00 07:00 IntakeIntake Total 652.5 ml 1060 ml 927.5 ml OutputOutput Total 325 ml 845 ml 740 ml BalanceBalance 327.5 ml 215 ml 187.5 ml Constitutional: frail Respiratory: diminished breath sounds Gastrointestinal: soft, nl liver, spleen, non-tender Musculoskeletal: nl extremities to inspection, nl gait and stance Extremities: normal pulses Results Result Diagram: 08/26/18 0500 08/26/18 0500 Results 24hrs Laboratory Tests Test 08/26/18 05:00 White Blood Count 4.2 L Red Blood Count 3.56 L Hemoglobin 10.2 L Hematocrit 30.3 L Mean Corpuscular Volume 85.1 Mean Corpuscular Hemoglobin 28.7 L Mean Corpuscular Hemoglobin Concent 33.7 Red Cell Distribution Width 17.2 H Platelet Count 78 L Mean Platelet Volume 11.6 H Immature Granulocytes % 18.900 H Neutrophils % 61.6 Segmented Neutrophils % (Manual) 68 Band Neutrophils % (Manual) 9 H Lymphocytes % 13.1 L Lymphocytes % (Manual) 14 L Monocytes % 3.8 Eosinophils % 0.7 Basophils % 1.9 Metamyelocytes % (manual) 4 H Myelocytes % (Manual) 1 H Promyelocytes % (Manual) 3 H Plasma Cells % (manual) 1 Nucleated Red Blood Cells % 6 H Immature Granulocytes # 0.790 H Neutrophils # 2.6 Neutrophils # (Manual) 2.9 Band Neutrophils # 0.3 Lymphocytes (Manual) 0.5 L Lymphocytes # 0.6 L Monocytes # 0.2 L Eosinophils # 0.0 Basophils # 0.1 Metamyelocytes # 0.1 H Myelocytes # 0.0 Promyelocytes # 0.1 H Plasma Cells # (manual) 0.0 Nucleated Red Blood Cells # 0.2 H Toxic Granulation 2+ Platelet Estimate DECREASED Giant Platelets 4 H Polychromasia 1+ Poikilocytosis 2+ Anisocytosis 1+ Ovalocytes 1+ Blood Gas Specimen Source Blood arterial Arterial Blood Date Drawn 08/26/2018 5:00:38 AM Arterial Blood pH (Temp corrected) 7.491 H Arterial Blood pCO2 (Temp correct) 30.3 L Arterial Blood pO2 (Temp corrected) 103.6 H Arterial Blood HCO3 22.6 Arterial Blood Base Excess 0 Arterial Blood Oxygen Saturation 97.8 Jarod Test ACCEPTAB Arterial Blood Gas Puncture Site Right Radial Arterial Blood Carboxyhemoglobin 0.3 Arterial Blood Methemoglobin 0.3 Blood Gas A-a O2 Differential 60.3 H Oxyhemoglobin Percent 97.2 Blood Gas Temperature 37.0 Blood Gas Modality NASAL CANNULA FiO2 28.0 Blood Gas Notified Whom MA Blood Gas Notified Time 08/26/2018 5:15:10 AM Sodium Level 140 Potassium Level 3.8 Chloride Level 111 H Carbon Dioxide Level 27 Anion Gap 2 L Blood Urea Nitrogen 24 H Creatinine 0.30 L Est Glomerular Filtrat Rate mL/min Glucose Level 128 Calcium Level 8.3 L Total Bilirubin 0.5 Direct Bilirubin 0.00 Indirect Bilirubin 0.5 Aspartate Amino Transf (AST/SGOT) 64 H Alanine Aminotransferase (ALT/SGPT) 45 Alkaline Phosphatase 386 H Total Protein 4.5 L Albumin 2.2 L Globulin 2.30 Albumin/Globulin Ratio 0.95 Medications Medication Current Medications Miscellaneous Information [facility] This patient tabares... PRN PRN XX WOUND CARE; Start 08/16/18 at 20:00 Acetaminophen (Tylenol Tab) 500 mg Q4H PRN PO MILD PAIN(1-3)OR ELEVATED TEMP Last administered on 08/21/18 21:07; Admin Dose 500 MG; Start 08/16/18 at 20:00 Ascorbic Acid (Vitamin C) 500 mg BID GTB Last administered on 08/26/18 09:13; Admin Dose 500 MG; Start 08/16/18 at 21:00 Bicalutamide (Casodex) 50 mg DAILY PO ; Start 08/17/18 at 09:00; Status Hold Metoprolol Tartrate (Lopressor) 25 mg BID PO Last administered on 08/26/18 09:14; Admin Dose 25 MG; Start 08/17/18 at 21:00 Fish Oil (Fish Oil) 1,000 mg BID PO Last administered on 08/26/18 09:13; Admin Dose 1,000 MG; Start 08/18/18 at 14:00 Norepinephrine 250 ml @ 1.875 mls/ hr TITRATE IV Last administered on 08/19/18 11:59; Admin Dose 1.875 MLS/HR; Start 08/19/18 at 11:00 Lactated Ringer's 1,000 ml @ 70 mls/hr [id number] IV Last administered on 08/26/18 04:59; Admin Dose 70 MLS/HR; Start 08/19/18 at 14:00 Phenylephrine HCl 40 mg/Dextrose 250 ml @ 37.5 mls/hr TITRATE IV Last administered on 08/22/18at 00:09; Admin Dose 26.25 MLS/HR; Start 08/19/18 at 14:00 Methenamine (Hiprex) 1 gm BID GTB Last administered on 08/26/18at 09:15; Admin Dose 1 GM; Start 08/20/18 at 21:00 Prenat Multivit/ [place]/Iron/Folic Ac () 1 tab DAILY GTB Last administered on 08/26/18at 09:14; Admin Dose 1 TAB; Start 08/21/18 at 09:00 Zinc Sulfate (Zinc Sulfate) 220 mg DAILY GTB Last administered on 08/26/18at 09: 14; Admin Dose 220 MG; Start 08/21/18 at 09:00 Finasteride (Proscar) 5 mg DAILY GTB Last administered on 08/26/18at 09:15; Admin Dose 5 MG; Start 08/20/18 at 10:00 Morphine Sulfate (morphine) 1 mg Q4H PRN IV SEVERE PAIN LEVEL 7-10; Start 08/21/18 at 12:00 Pantoprazole (Protonix Iv) 40 mg DAILY@06 IV Last administered on 08/26/18at 05:00; Admin Dose 40 MG; Start 08/25/18 at 15:00 Ciprofloxacin (Cipro) 500 mg BID@06,18 JT ; Start 08/26/18 at 18:00 AILIN RUEDA MD August 26, 2018 15:59
[2018-08-26] MEDS: CIPROFLOXACIN 500 MG TAB JT SCH (20:28)
[2018-08-26] MEDS: ALBUTEROL 0.083% (NEB) 2.5 MG/3 ML AMP HHN SCH (21:34)
[2018-08-26] MEDS: ACETYLCYSTEINE 20% 4 ML VIAL NEB SCH (21:34)
[2018-08-27] VITALS (36 sets, daily range): BP systolic 96–139; BP diastolic 41–80; PULSE 91–129; RESP 12–34
[2018-08-27] MEDS ORDERED: RACEPINEPHRINE 2.25%(NEB) 0.5 ML AMP HHN ONE (00:30)
[2018-08-27] MEDS: ACETYLCYSTEINE 20% 4 ML VIAL NEB SCH ×8 (00:36→23:14)
[2018-08-27] MEDS: ALBUTEROL 0.083% (NEB) 2.5 MG/3 ML AMP HHN SCH ×8 (00:36→23:14)
[2018-08-27] MEDS ORDERED: ACETYLCYSTEINE 20% 4 ML VIAL NEB SCH (05:00)
[2018-08-27] MEDS: PANTOPRAZOLE 40 MG INJ IV SCH (05:42)
[2018-08-27] MEDS: CIPROFLOXACIN 500 MG TAB JT SCH ×2 (05:42→18:47)
[2018-08-27] MEDS: FINASTERIDE 5 MG TAB GTB SCH (09:07)
[2018-08-27] MEDS: FISH OIL 1,000 MG CAP PO SCH ×2 (09:07→20:58)
[2018-08-27] MEDS: METHENAMINE 1 GM TAB GTB SCH ×2 (09:07→21:16)
[2018-08-27] MEDS: ZINC SULFATE 220 MG CAP GTB SCH (09:08)
[2018-08-27] MEDS: PRENATAL VITAMIN GTB SCH (09:08)
[2018-08-27] MEDS: BALSAM PERU/CASTOR OIL 60 GM TUBE TOP SCH ×2 (09:08→21:17)
[2018-08-27] MEDS: METOPROLOL 25 MG TAB PO SCH (09:08)
[2018-08-27] MEDS: ASCORBIC ACID 500 MG TAB GTB SCH ×2 (09:09→21:16)
--- NOTE | 2018-08-27 11:03 | CONS ---
Assessment/Plan Assessment/Plan Hospital Course (Demo Recall) IMPRESSION: 1. Abnormal electrocardiogram, assess for acute coronary syndrome.-neg trop x 2. NL EF by echo this admit 2. Cardiac arrhythmia at this time, most consistent with sinus arrhythmia.-mild tachycardia, sinus arrythmia. NL TSH- now with increased S tachycardia today-? due to pain/resp distress/anxiety/hypotension 3. Hypotension-now off neosynephrine 4. Dysphagia, post-op status post PEG placement 5. Failure to thrive. 6. History of prostate carcinoma. 7. History of aplastic anemia-currently improved 8. Hypernatremia. 10. Pancytopenia-currently overall improved Hgb 11. Resp failure s/p extubation 12. Pleural effusion s/p thoracentesis c/b PTX with CT now 14. PNA Recc: -ICU -serial ecg's -follow Hgb closely and transfuse as necessary -Continue avodart -Continue abx's and f/u cx data -Follow volume status -Follow HR/BP closely -s/p albumin infusion x 2 -tolerating low dose BB -Ongoing discussion with family about code status -Follow resp status closely with frequent suctioning Consultation Date/Type/Reason Admit Date/Time Aug 17, 2018 at 09:51 Initial Consult Date 08/17/18 Type of Consult Cardiology Reason for Consultation arrythmia Requesting Provider: SANIA WHITTINGTON MD Date/Time of Note DATE: 08/27/18 TIME: 10:56 Exam/Review of Systems Vital Signs Vitals Vital Signs Date Temp Pulse Resp B/P (MAP) Pulse Ox O2 O2 Flow FiO2 Time Delivery Rate 08/27/18 121 99 30 09:27 08/27/18 12 103/53 Room Air 06:00 (70) 08/27/18 98.6 04:00 08/26/18 8.0 22:16 Intake and Output 08/26/18 08/26/18 08/27/18 1515:00 23:00 07:00 IntakeIntake Total 1165 ml 1090 ml 420 ml OutputOutput Total 560 ml 530 ml 690 ml BalanceBalance 605 ml 560 ml -270 ml Exam Exam Review of Systems: CONSTITUTIONAL: No fevers, chills. PULMONARY: No sob CARDIOVASCULAR: No chest pain/palpitations GASTROINTESTINAL: No nausea/vomiting. GENITOURINARY: No hematuria/dysuria. MUSCULOSKELETAL: No myagias/arthalgias. PSYCHIATRIC: The patient denies depression. NEUROLOGIC: No weakness Constitutional: alert Psych: no complaints Head: normocephalic ENMT: mucosa pink and moist Neck: supple, jvd (9 cm water) Respiratory: diminished breath sounds Cardiovascular: regular rate and rhythm Gastrointestinal: soft, non-tender Musculoskeletal: muscle tone (normal) Extremities: edema (none) Neurological: other (No focal deficits) Labs Result Diagram: 08/27/18 0436 08/27/18 0436 Results 24hrs Laboratory Tests Test 08/26/18 21:54 08/27/18 00:45 08/27/18 04:36 08/27/18 05:00 Blood Gas Blood arterial Blood arterial Blood arterial Specimen Source Arterial Blood 08/26/2018 10:00: 08/27/2018 1:00:0 08/27/2018 5:00:3 Date Drawn 04 PM 2 AM 6 AM Arterial Blood 7.453 H 7.383 7.444 pH (Temp corrected ) Arterial Blood 35.9 42.2 38.2 pCO2 (Temp correct) Arterial Blood 80.5 244.1 H 424.1 H pO2 (Temp corrected ) Arterial Blood 24.6 24.6 25.6 HCO3 Arterial Blood 0.9 -0.5 1.6 Base Excess Arterial Blood 96.5 99.2 99.6 Oxygen Saturati on Jarod Test N/A ACCEPTAB ACCEPTAB Arterial Blood Left Radial Left Radial Left Radial Gas Puncture Site Arterial 0.6 0.3 0.4 Blood Carboxyhe moglobin Arterial Blood 0.4 0.4 0.6 Methemoglobin Blood Gas A-a 69.6 H 426.7 H 250.7 H O2 Differential Oxyhemoglobin 95.5 98.5 98.6 Percent Blood Gas 37.0 37.0 37.0 Temperature Blood Gas 26 28 23 Actual Respiration Rat e Blood Gas NASAL CANNULA MASK - BIPAP MASK - BIPAP Modality FiO2 27.0 100.0 100.0 Blood Gas S.H. MG ILAN Notified Whom Blood Gas 08/26/2018 10:06: 08/27/2018 1:10:2 08/27/2018 5:15:2 Notified Time 04 PM 5 AM 2 AM Blood Gas 20.0 20.0 Respiration Rate Blood Gas Tidal 502.0 Volume Blood Gas 05/09 05/09 IPAP/EPAP Ratio White Blood 6.7 # Count Red Blood Count 3.79 L Hemoglobin 10.9 L Hematocrit 32.7 L Mean 86.3 Corpuscular Volume Mean 28.8 L Corpuscular Hemoglobin Mean 33.3 Corpuscular Hemoglobin Conc ent Red Cell 17.3 H Distribution Width Platelet Count 106 #L Mean Platelet 12.8 H Volume Immature 16.500 H Granulocytes % Neutrophils % Segmented 70 Neutrophils % (Manual) Band 9 H Neutrophils % (Manual) Lymphocytes % Lymphocytes % 7 L (Manual) Reactive 2 H Lymphocytes % (Manual) Monocytes % Monocytes % 1 (Manual) Eosinophils % Basophils % Metamyelocytes 3 H % (manual) Myelocytes % 6 H (Manual) Promyelocytes % 2 H (Manual) Nucleated Red 5 H Blood Cells % Immature 1.110 H Granulocytes # Neutrophils # Neutrophils # 4.7 (Manual) Band 0.6 Neutrophils # Lymphocytes 0.4 L (Manual) Lymphocytes # Reactive 0.1 H Lymphocytes # Monocytes # Monocytes # 0.0 L (Manual) Eosinophils # Basophils # Metamyelocytes 0.2 H # Myelocytes # 0.4 H Promyelocytes # 0.1 H Nucleated Red Blood Cells # Platelet DECREASED Estimate Giant Platelets 3 H Polychromasia 1+ Anisocytosis 1+ Macrocytosis 1+ Sodium Level 140 Potassium Level 3.8 Chloride Level 110 Carbon Dioxide 26 Level Anion Gap 4 L Blood Urea 24 H Nitrogen Creatinine 0.25 L Est Glomerular Filtrat Rate mL/min Glucose Level 160 Lactic Acid 1.3 Level Calcium Level 8.4 Total Bilirubin 0.4 Direct 0.00 Bilirubin Indirect 0.4 Bilirubin Aspartate Amino 54 H Transf (AST/SGO T) Alanine 40 Aminotransferas e (ALT/SGPT) Alkaline 420 H Phosphatase Total Protein 4.4 L Albumin 2.1 L Globulin 2.30 Albumin/Globuli 0.91 n Ratio Blood Gas 10 Pressure Support Medications Medications Current Medications Miscellaneous Information (Pending [facility]yl Order For Wound Care) This patient tabares ... PRN PRN XX WOUND CARE; Start 08/16/18 at 20:00 Acetaminophen (Tylenol Tab) 500 mg Q4H PRN PO MILD PAIN(1-3)OR ELEVATED TEMP Last administered on 08/21/18at 21:07; Admin Dose 500 MG; Start 08/16/18 at 20:00 Ascorbic Acid (Vitamin C) 500 mg BID GTB Last administered on 08/27/18 09:09; Admin Dose 500 MG; Start 08/16/18 at 21:00 Bicalutamide (Casodex) 50 mg DAILY PO ; Start 08/17/18 at 09:00; Status Hold Metoprolol Tartrate (Lopressor) 25 mg BID PO Last administered on 08/27/18 09:08; Admin Dose 25 MG; Start 08/17/18 at 21:00 Fish Oil (Fish Oil) 1,000 mg BID PO Last administered on 08/27/18 09:07; Admin Dose 1,000 MG; Start 08/18/18 at 14:00 Norepinephrine 250 ml @ 1.875 mls/ hr TITRATE IV Last administered on 08/19/18 11:59; Admin Dose 1.875 MLS/HR; Start 08/19/18 at 11:00 Phenylephrine HCl 40 mg/Dextrose 250 ml @ 37.5 mls/hr TITRATE IV Last administered on 08/22/18 00:09; Admin Dose 26.25 MLS/HR; Start 08/19/18 at 14:00 Methenamine (Hiprex) 1 gm BID GTB Last administered on 08/27/18 09:07; Admin Dose 1 GM; Start 08/20/18 at 21:00 Prenat Multivit/ [place]/Iron/Folic Ac () 1 tab DAILY GTB Last administered on 08/27/18 09:08; Admin Dose 1 TAB; Start 08/21/18 at 09:00 Zinc Sulfate (Zinc Sulfate) 220 mg DAILY GTB Last administered on 08/27/18 09:08; Admin Dose 220 MG; Start 08/21/18 at 09:00 Finasteride (Proscar) 5 mg DAILY GTB Last administered on 08/27/18 09:07; Admin Dose 5 MG; Start 08/20/18 at 10:00 Morphine Sulfate (morphine) 1 mg Q4H PRN IV SEVERE PAIN LEVEL 7-10; Start 08/21/18 at 12:00 Pantoprazole (Protonix Iv) 40 mg DAILY@06 IV Last administered on 08/27/18 05:42; Admin Dose 40 MG; Start 08/25/18 at 15:00 Ciprofloxacin (Cipro) 500 mg BID@06,18 JT Last administered on 5/6/19at 05:42; Admin Dose 500 MG; Start 08/26/18 at 18:00 Acetylcysteine (Mucomyst) 4 ml Q3H RESP THERAPY NEB Last administered on 08/27/18 08:06; Admin Dose 4 ML; Start 08/27/18 at 05:00 Albuterol (Proventil 0.083% (Neb)) 2.5 mg Q3 HHN Last administered on 08/27/18 08:06; Admin Dose 2.5 MG; Start 08/27/18 at 09:00 LUIS ALBERTO EDWARD August 27, 2018 11:03
--- NOTE | 2018-08-27 11:19 | CONS ---
Consult Date/Type/Reason Admit Date/Time Aug 17, 2018 at 09:51 Initial Consult Date 08/17/18 Type of Consult Pulmonary Requesting Provider: SANIA WHITTINGTON MD Date/Time of Note DATE: 08/27/18 TIME: 11:15 Subjective Patient had worsening respiratory distress overnight. Required initiation of bilevel ventilation. Currently off vasopressors. Chest x-ray demonstrates worsening left effusion. Right lung clear. Objective Vital Signs Date Temp Pulse Resp B/P (MAP) Pulse Ox O2 O2 Flow FiO2 Time Delivery Rate 08/27/18 121 99 30 09:27 08/27/18 12 103/53 Room Air 06:00 (70) 08/27/18 98.6 04:00 08/26/18 8.0 22:16 Intake and Output 08/26/18 08/26/18 08/27/18 1515:00 23:00 07:00 IntakeIntake Total 1165 ml 1090 ml 420 ml OutputOutput Total 560 ml 530 ml 690 ml BalanceBalance 605 ml 560 ml -270 ml Exam GENERAL: Frail elderly gentleman on bilevel ventilation VITAL SIGNS: per chart NECK: Supple. No JVD or lymphadenopathy. CARDIAC EXAM: S1, S2. No added sounds or murmurs. CHEST: Diminished air entry bilaterally ABDOMEN: Soft, nontender. No guarding or rebound. EXTREMITIES: No cyanosis, clubbing edema +1 NEUROLOGIC: Generalized weakness. Vent Setting Ventilator Support Mode: AC Fraction of Inspired Oxygen pe: 40 Positive End Expiratory Pressu: 5.0 Results/Medications Result Diagram: 08/27/18 0436 08/27/18 0436 Results 24 hrs Laboratory Tests Test 08/26/18 21:54 08/27/18 00:45 08/27/18 04:36 08/27/18 05:00 Blood Gas Blood arterial Blood arterial Blood arterial Specimen Source Arterial Blood 08/26/2018 10:00: 08/27/2018 1:00:0 08/27/2018 5:00:3 Date Drawn 04 PM 2 AM 6 AM Arterial Blood 7.453 H 7.383 7.444 pH (Temp corrected ) Arterial Blood 35.9 42.2 38.2 pCO2 (Temp correct) Arterial Blood 80.5 244.1 H 424.1 H pO2 (Temp corrected ) Arterial Blood 24.6 24.6 25.6 HCO3 Arterial Blood 0.9 -0.5 1.6 Base Excess Arterial Blood 96.5 99.2 99.6 Oxygen Saturati on Jarod Test N/A ACCEPTAB ACCEPTAB Arterial Blood Left Radial Left Radial Left Radial Gas Puncture Site Arterial 0.6 0.3 0.4 Blood Carboxyhe moglobin Arterial Blood 0.4 0.4 0.6 Methemoglobin Blood Gas A-a 69.6 H 426.7 H 250.7 H O2 Differential Oxyhemoglobin 95.5 98.5 98.6 Percent Blood Gas 37.0 37.0 37.0 Temperature Blood Gas 26 28 23 Actual Respiration Rat e Blood Gas NASAL CANNULA MASK - BIPAP MASK - BIPAP Modality FiO2 27.0 100.0 100.0 Blood Gas S.H. MG MA Notified Whom Blood Gas 08/26/2018 10:06: 08/27/2018 1:10:2 08/27/2018 5:15:2 Notified Time 04 PM 5 AM 2 AM Blood Gas 20.0 20.0 Respiration Rate Blood Gas Tidal 502.0 Volume Blood Gas 05/09 05/09 IPAP/EPAP Ratio White Blood 6.7 # Count Red Blood Count 3.79 L Hemoglobin 10.9 L Hematocrit 32.7 L Mean 86.3 Corpuscular Volume Mean 28.8 L Corpuscular Hemoglobin Mean 33.3 Corpuscular Hemoglobin Conc ent Red Cell 17.3 H Distribution Width Platelet Count 106 #L Mean Platelet 12.8 H Volume Immature 16.500 H Granulocytes % Neutrophils % Segmented 70 Neutrophils % (Manual) Band 9 H Neutrophils % (Manual) Lymphocytes % Lymphocytes % 7 L (Manual) Reactive 2 H Lymphocytes % (Manual) Monocytes % Monocytes % 1 (Manual) Eosinophils % Basophils % Metamyelocytes 3 H % (manual) Myelocytes % 6 H (Manual) Promyelocytes % 2 H (Manual) Nucleated Red 5 H Blood Cells % Immature 1.110 H Granulocytes # Neutrophils # Neutrophils # 4.7 (Manual) Band 0.6 Neutrophils # Lymphocytes 0.4 L (Manual) Lymphocytes # Reactive 0.1 H Lymphocytes # Monocytes # Monocytes # 0.0 L (Manual) Eosinophils # Basophils # Metamyelocytes 0.2 H # Myelocytes # 0.4 H Promyelocytes # 0.1 H Nucleated Red Blood Cells # Platelet DECREASED Estimate Giant Platelets 3 H Polychromasia 1+ Anisocytosis 1+ Macrocytosis 1+ Sodium Level 140 Potassium Level 3.8 Chloride Level 110 Carbon Dioxide 26 Level Anion Gap 4 L Blood Urea 24 H Nitrogen Creatinine 0.25 L Est Glomerular Filtrat Rate mL/min Glucose Level 160 Lactic Acid 1.3 Level Calcium Level 8.4 Total Bilirubin 0.4 Direct 0.00 Bilirubin Indirect 0.4 Bilirubin Aspartate Amino 54 H Transf (AST/SGO T) Alanine 40 Aminotransferas e (ALT/SGPT) Alkaline 420 H Phosphatase Total Protein 4.4 L Albumin 2.1 L Globulin 2.30 Albumin/Globuli 0.91 n Ratio Blood Gas 10 Pressure Support Medications Current Medications Misc[facility] This patient tabares... PRN PRN XX WOUND CARE; Start 08/16/18 at 20:00 Acetaminophen (Tylenol Tab) 500 mg Q4H PRN PO MILD PAIN(1-3)OR ELEVATED TEMP Last administered on 08/21/18 21:07; Admin Dose 500 MG; Start 08/16/18 at 20:00 Ascorbic Acid (Vitamin C) 500 mg BID GTB Last administered on 08/27/18 09:09; Admin Dose 500 MG; Start 08/16/18 at 21:00 Bicalutamide (Casodex) 50 mg DAILY PO ; Start 08/17/18 at 09:00; Status Hold Metoprolol Tartrate (Lopressor) 25 mg BID PO Last administered on 08/27/18 09:08; Admin Dose 25 MG; Start 08/17/18 at 21:00 Fish Oil (Fish Oil) 1,000 mg BID PO Last administered on 08/27/18 09:07; Admin Dose 1,000 MG; Start 08/18/18 at 14:00 Norepinephrine 250 ml @ 1.875 mls/ hr TITRATE IV Last administered on 08/19/18 11:59; Admin Dose 1.875 MLS/HR; Start 08/19/18 at 11:00 Phenylephrine HCl 40 mg/Dextrose 250 ml @ 37.5 mls/hr TITRATE IV Last administered on 08/22/18 00:09; Admin Dose 26.25 MLS/HR; Start 08/19/18 at 14:00 Methenamine (Hiprex) 1 gm BID GTB Last administered on 08/27/18 09:07; Admin Dose 1 GM; Start 08/20/18 at 21:00 Prenat Multivit/ [employer]/Iron/Folic Ac () 1 tab DAILY GTB Last administered on 08/27/18 09:08; Admin Dose 1 TAB; Start 08/21/18 at 09:00 Zinc Sulfate (Zinc Sulfate) 220 mg DAILY GTB Last administered on 08/27/18 09:08; Admin Dose 220 MG; Start 08/21/18 at 09:00 Finasteride (Proscar) 5 mg DAILY GTB Last administered on 08/27/18 09:07; Admin Dose 5 MG; Start 08/20/18 at 10:00 Morphine Sulfate (morphine) 1 mg Q4H PRN IV SEVERE PAIN LEVEL 7-10; Start 08/21/18 at 12:00 Pantoprazole (Protonix Iv) 40 mg DAILY@06 IV Last administered on 08/27/18 05:42; Admin Dose 40 MG; Start 08/25/18 at 15:00 Ciprofloxacin (Cipro) 500 mg BID@06,18 JT Last administered on 08/27/18 05:42; Admin Dose 500 MG; Start 08/26/18 at 18:00 Acetylcysteine (Mucomyst) 4 ml Q3H RESP THERAPY NEB Last administered on 08/27/18 08:06; Admin Dose 4 ML; Start 08/27/18 at 05:00 Albuterol (Proventil 0.083% (Neb)) 2.5 mg Q3 HHN Last administered on 08/27/18 08:06; Admin Dose 2.5 MG; Start 08/27/18 at 09:00 Assessment/Plan Hospital Course (Demo Recall) IMP: 1. Acute Hypercapnic/Hypoxemic Respiratory Failure 2/2 L mainstem mucus plugging with complete left lung atelectasis s/p intubation. Resulting positive pressure ventilation thereafter likely led to a right-sided pneumothorax with tension physiology--now extubated. Moderate left pleural effusion with progressive hypoxemia 2. Tension PTX--resolved 3. Complete Left Lung ATX--2/2 mucus plugging, now re-expanded. 4. Intermittent PSVT--resolved 5. Right lung pneumonia--likely aspiration 6. UTI 7. 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 Prostate Cancer 9. Severe Cachexia/deconditioning 10.Pancytopenia 11.GIB 12.DNR/DNI RECS: 1. Strict aspiration precautions; HOB > 30 2. Suctioning/CPT as needed 3. Continue bilevel ventilation, chest tube to suction. Family will consider left Pleurx catheter 4. Continue TF's/free H20 5. Avoid all sedatives/narcotics 35 min cc time Overall prognosis extremely poor family are aware. LUIZ RAMOS MD, [facility] August 27, 2018 11:18
--- NOTE | 2018-08-27 11:20 | CONS ---
Assessment/Plan Assessment/Plan Hospital Course (Demo Recall) # sepsis, SIRS, resp - septic shock due to UTI plus SIRS due to possible aspiration, pneumothorax, improved - septic shock due to UTI - SIRS due to possible aspiration pneumonitis - probable aspiration pneumonitis - pneumonia vs. colonization of the airway due to enterobacter - b/l pleural effusion - s/p R sided thoracentesis on 08/17/2018. LDH 499, protein 3.2, WBC 89 with 6.8% neutrophils. Cultures of the fluid are negative; no malignant cells by cytology - s/p L sided thoracentesis on 08/24/2018. LDH 481, protein 2.1, WBC 345 with 31.7% neutrophils - s/p R PTX - s/p placement of R chest tube on 08/19/2018 - acute hypoxic resp failure - s/p intubation on 08/19/2018 - s/p extubation on 08/25/2018 # , heme/onc - UTI due to pseudomonas - prostate CA, with probable mets to the lungs and liver (based on CT result) - h/o recent chemotherapy for his prostate CA - frequent UTI prior to admission. Pt was on long-term antibiotic for prophylaxis according to Pt's son - pancytopenia, improving # GI, alimentary - transaminitis, probably a combination of liver metastasis and shock liver - moderately distended gallbladder with a moderate amount of sludge on liver SAKINA on 08/22/2018 - liver mets on liver SAKINA on 08/22/2018 - s/p failure to thrive - s/p placement of G-J tube on 08/16/2018 # other conditions - Alzheimer's dementia - acute metabolic encephalopathy Recommendations: - s/p cefepime (08/21/2018-08/26/18) for enterobacter and pseudomonas today - For UTI prophylaxis - Continue pGT Ciprofloxacin (08/26/18 - ); One of Pt's sons request that Pt be maintained on antibiotic as UTI prophylaxis; according to him, Pt has had multiple episodes of UTI. 2 weeks ago, he wasin septic shock due to UTI at [facility]. Dr. Zheng discussed the pros and cons of antibiotic prophylaxis for UTI. - We recommend changing the femoral line to PICC if Pt will need a central line. If not, we recommend its discontinuation Management d/w ALLY Barth and with Dr. Chou. Thank you Total critical care time spent: 40 minutes. Consultation Date/Type/Reason Admit Date/Time Aug 17, 2018 at 09:51 Initial Consult Date 08/23/18 Type of Consult ID Requesting Provider: SANIA WHITTINGTON MD Date/Time of Note DATE: 08/27/18 TIME: 11:17 24 HR Interval Summary Free Text/Dictation Per d/w nsg, when patient's CT was placed to water seal, he began to become tachycardic and appeared in distress. Was placed back to suction and onto bipap. There is tentative planning for possible pleur-x. Patient has remained afebrile. He is nonverbal and unable to contribute to ROS. Exam/Review of Systems Exam Vitals Vital Signs Date Temp Pulse Resp B/P (MAP) Pulse Ox O2 O2 Flow FiO2 Time Delivery Rate 08/27/18 121 99 30 09:27 08/27/18 12 103/53 Room Air 06:00 (70) 08/27/18 98.6 04:00 08/26/18 8.0 22:16 Intake and Output 08/26/18 08/26/18 08/27/18 1515:00 23:00 07:00 IntakeIntake Total 1165 ml 1090 ml 420 ml OutputOutput Total 560 ml 530 ml 690 ml BalanceBalance 605 ml 560 ml -270 ml Allergies Coded Allergies No Known Allergy (Unverified08/16/18) Constitutional: frail, other (eyes opened to verbal stimuli.) Head: normocephalic, atraumatic Eyes: nl conjunctiva, nl lids, nl sclera ENMT: nl external ears & nose, other (OP dry [on bipap]) Neck: supple, non-tender, other (R lateral lower neck bruising noted) Respiratory: diminished breath sounds, other (on bipap, fio2 30%; R chest tube to 20cm suction, serosangeuinous output) Cardiovascular: regular rate and rhythm, nl pulses, other (Tachycardic) Gastrointestinal: soft (rounded), non-tender, other (PEG site is c/d/i, with TF running currently.) Genitourinary - Male: other (F/c draining yellow urine) Musculoskeletal: nl extremities to inspection, muscle weakness Extremities: normal pulses Neurological: lethargic, other (eyes opened to tactile stim, withdraws to tactile stim) Skin: nl turgor, ecchymosis, other (Right femoral triple lumen catheter site dry, intact, with some brown drainage noted at the insertion site.); No rash or lesions Results Result Diagram: 08/27/18 0436 08/27/18 0436 Results 24hrs Laboratory Tests Test 08/26/18 21:54 08/27/18 00:45 08/27/18 04:36 08/27/18 05:00 Blood Gas Blood arterial Blood arterial Blood arterial Specimen Source Arterial Blood 08/26/2018 10:00: 08/27/2018 1:00:0 08/27/2018 5:00:3 Date Drawn 04 PM 2 AM 6 AM Arterial Blood 7.453 H 7.383 7.444 pH (Temp corrected ) Arterial Blood 35.9 42.2 38.2 pCO2 (Temp correct) Arterial Blood 80.5 244.1 H 424.1 H pO2 (Temp corrected ) Arterial Blood 24.6 24.6 25.6 HCO3 Arterial Blood 0.9 -0.5 1.6 Base Excess Arterial Blood 96.5 99.2 99.6 Oxygen Saturati on Jarod Test N/A ACCEPTAB ACCEPTAB Arterial Blood Left Radial Left Radial Left Radial Gas Puncture Site Arterial 0.6 0.3 0.4 Blood Carboxyhe moglobin Arterial Blood 0.4 0.4 0.6 Methemoglobin Blood Gas A-a 69.6 H 426.7 H 250.7 H O2 Differential Oxyhemoglobin 95.5 98.5 98.6 Percent Blood Gas 37.0 37.0 37.0 Temperature Blood Gas 26 28 23 Actual Respiration Rat e Blood Gas NASAL CANNULA MASK - BIPAP MASK - BIPAP Modality FiO2 27.0 100.0 100.0 Blood Gas S.H. MG MA Notified Whom Blood Gas 08/26/2018 10:06: 08/27/2018 1:10:2 08/27/2018 5:15:2 Notified Time 04 PM 5 AM 2 AM Blood Gas 20.0 20.0 Respiration Rate Blood Gas Tidal 502.0 Volume Blood Gas 05/09 05/09 IPAP/EPAP Ratio White Blood 6.7 # Count Red Blood Count 3.79 L Hemoglobin 10.9 L Hematocrit 32.7 L Mean 86.3 Corpuscular Volume Mean 28.8 L Corpuscular Hemoglobin Mean 33.3 Corpuscular Hemoglobin Conc ent Red Cell 17.3 H Distribution Width Platelet Count 106 #L Mean Platelet 12.8 H Volume Immature 16.500 H Granulocytes % Neutrophils % Segmented 70 Neutrophils % (Manual) Band 9 H Neutrophils % (Manual) Lymphocytes % Lymphocytes % 7 L (Manual) Reactive 2 H Lymphocytes % (Manual) Monocytes % Monocytes % 1 (Manual) Eosinophils % Basophils % Metamyelocytes 3 H % (manual) Myelocytes % 6 H (Manual) Promyelocytes % 2 H (Manual) Nucleated Red 5 H Blood Cells % Immature 1.110 H Granulocytes # Neutrophils # Neutrophils # 4.7 (Manual) Band 0.6 Neutrophils # Lymphocytes 0.4 L (Manual) Lymphocytes # Reactive 0.1 H Lymphocytes # Monocytes # Monocytes # 0.0 L (Manual) Eosinophils # Basophils # Metamyelocytes 0.2 H # Myelocytes # 0.4 H Promyelocytes # 0.1 H Nucleated Red Blood Cells # Platelet DECREASED Estimate Giant Platelets 3 H Polychromasia 1+ Anisocytosis 1+ Macrocytosis 1+ Sodium Level 140 Potassium Level 3.8 Chloride Level 110 Carbon Dioxide 26 Level Anion Gap 4 L Blood Urea 24 H Nitrogen Creatinine 0.25 L Est Glomerular Filtrat Rate mL/min Glucose Level 160 Lactic Acid 1.3 Level Calcium Level 8.4 Total Bilirubin 0.4 Direct 0.00 Bilirubin Indirect 0.4 Bilirubin Aspartate Amino 54 H Transf (AST/SGO T) Alanine 40 Aminotransferas e (ALT/SGPT) Alkaline 420 H Phosphatase Total Protein 4.4 L Albumin 2.1 L Globulin 2.30 Albumin/Globuli 0.91 n Ratio Blood Gas 10 Pressure Support Imaging Imaging CXR 08/27/18 IMPRESSION: 1. Diffuse interstitial opacities may reflect a combination of edema or pneumonia. Lung aeration is improved when compared to the prior examination. 2. Small left pleural effusion, not significantly changed. 3. Aortic atherosclerosis. 4. Right-sided chest tube in place. No pneumothorax is seen. Medications Medication Current Medications Miscellaneous Information ([facility] This patient tabares... PRN PRN XX WOUND CARE; Start 08/16/18 at 20:00 Acetaminophen (Tylenol Tab) 500 mg Q4H PRN PO MILD PAIN(1-3)OR ELEVATED TEMP Last administered on 08/21/18at 21:07; Admin Dose 500 MG; Start 08/16/18 at 20:00 Ascorbic Acid (Vitamin C) 500 mg BID GTB Last administered on 08/27/18 09:09; Admin Dose 500 MG; Start 08/16/18 at 21:00 Bicalutamide (Casodex) 50 mg DAILY PO ; Start 08/17/18 at 09:00; Status Hold Metoprolol Tartrate (Lopressor) 25 mg BID PO Last administered on 08/27/18 09:08; Admin Dose 25 MG; Start 08/17/18 at 21:00 Fish Oil (Fish Oil) 1,000 mg BID PO Last administered on 08/27/18 09:07; Admin Dose 1,000 MG; Start 08/18/18 at 14:00 Norepinephrine 250 ml @ 1.875 mls/ hr TITRATE IV Last administered on 08/19/18 11:59; Admin Dose 1.875 MLS/HR; Start 08/19/18 at 11:00 Phenylephrine HCl 40 mg/Dextrose 250 ml @ 37.5 mls/hr TITRATE IV Last administered on 08/22/18 00:09; Admin Dose 26.25 MLS/HR; Start 08/19/18 at 14:00 Methenamine (Hiprex) 1 gm BID GTB Last administered on 08/27/18 09:07; Admin Dose 1 GM; Start 08/20/18 at 21:00 Prenat Multivit/ [place]/Iron/Folic Ac () 1 tab DAILY GTB Last administered on 08/27/18 09:08; Admin Dose 1 TAB; Start 08/21/18 at 09:00 Zinc Sulfate (Zinc Sulfate) 220 mg DAILY GTB Last administered on 08/27/18 09:08; Admin Dose 220 MG; Start 08/21/18 at 09:00 Finasteride (Proscar) 5 mg DAILY GTB Last administered on 08/27/18 09:07; Admin Dose 5 MG; Start 08/20/18 at 10:00 Morphine Sulfate (morphine) 1 mg Q4H PRN IV SEVERE PAIN LEVEL 7-10; Start 08/21/18 at 12:00 Pantoprazole (Protonix Iv) 40 mg DAILY@06 IV Last administered on 08/27/18 05: 42; Admin Dose 40 MG; Start 08/25/18 at 15:00 Ciprofloxacin (Cipro) 500 mg BID@06,18 JT Last administered on 08/27/18at 05:42; Admin Dose 500 MG; Start 08/26/18 at 18:00 Acetylcysteine (Mucomyst) 4 ml Q3H RESP THERAPY NEB Last administered on 08/27/18at 08:06; Admin Dose 4 ML; Start 08/27/18 at 05:00 Albuterol (Proventil 0.083% (Neb)) 2.5 mg Q3 HHN Last administered on 08/27/18at 08:06; Admin Dose 2.5 MG; Start 08/27/18 at 09:00 NORM DANIEL NP August 27, 2018 11:20
--- NOTE | 2018-08-27 12:13 | CONS ---
Assessment/Plan Assessment/Plan Assessment/Plan (Daily) 1. acute prerenal azotemia 2. Septic shock 2/2 UTI 3. right sided pneumothorax s/p R chest tube placement 4. acute hypoxemic respiratory failure intubated on ventilator 5. Metastatic prostate CA 6. Dysphagia s/p G tube placement 7. UTI with Urine cx growign Pseudomonas Plan : levophed for BP support BUN/Cr 24/0.25, Other electrolytes stable - on Ciprofloxacin 500mg PJ Q am ID and pulmonary has been following place Chest tube in place, still drainage output 300cc will follow up Consultation Date/Type/Reason Admit Date/Time Aug 17, 2018 at 09:51 Initial Consult Date 08/21/18 Type of Consult NEPHROLOGY Requesting Provider: SANIA WHITTINGTON MD Date/Time of Note DATE: 08/27/18 TIME: 12:12 Exam/Review of Systems Exam Vitals Vital Signs Date Temp Pulse Resp B/P (MAP) Pulse Ox O2 O2 Flow FiO2 Time Delivery Rate 08/27/18 109 100 30 11:24 08/27/18 27 121/65 Room Air 11:00 (83) 08/27/18 98.1 08:00 08/26/18 8.0 22:16 Intake and Output 08/26/18 08/26/18 08/27/18 1515:00 23:00 07:00 IntakeIntake Total 1165 ml 1090 ml 420 ml OutputOutput Total 560 ml 530 ml 690 ml BalanceBalance 605 ml 560 ml -270 ml Results Result Diagram: 08/27/18 0436 08/27/18 0436 Results 24hrs Laboratory Tests Test 08/26/18 21:54 08/27/18 00:45 08/27/18 04:36 08/27/18 05:00 Blood Gas Blood arterial Blood arterial Blood arterial Specimen Source Arterial Blood 08/26/2018 10:00: 08/27/2018 1:00:0 08/27/2018 5:00:3 Date Drawn 04 PM 2 AM 6 AM Arterial Blood 7.453 H 7.383 7.444 pH (Temp corrected ) Arterial Blood 35.9 42.2 38.2 pCO2 (Temp correct) Arterial Blood 80.5 244.1 H 424.1 H pO2 (Temp corrected ) Arterial Blood 24.6 24.6 25.6 HCO3 Arterial Blood 0.9 -0.5 1.6 Base Excess Arterial Blood 96.5 99.2 99.6 Oxygen Saturati on Jarod Test N/A ACCEPTAB ACCEPTAB Arterial Blood Left Radial Left Radial Left Radial Gas Puncture Site Arterial 0.6 0.3 0.4 Blood Carboxyhe moglobin Arterial Blood 0.4 0.4 0.6 Methemoglobin Blood Gas A-a 69.6 H 426.7 H 250.7 H O2 Differential Oxyhemoglobin 95.5 98.5 98.6 Percent Blood Gas 37.0 37.0 37.0 Temperature Blood Gas 26 28 23 Actual Respiration Rat e Blood Gas NASAL CANNULA MASK - BIPAP MASK - BIPAP Modality FiO2 27.0 100.0 100.0 Blood Gas S.H. MG MA Notified Whom Blood Gas 08/26/2018 10:06: 08/27/2018 1:10:2 08/27/2018 5:15:2 Notified Time 04 PM 5 AM 2 AM Blood Gas 20.0 20.0 Respiration Rate Blood Gas Tidal 502.0 Volume Blood Gas 05/09 05/09 IPAP/EPAP Ratio White Blood 6.7 # Count Red Blood Count 3.79 L Hemoglobin 10.9 L Hematocrit 32.7 L Mean 86.3 Corpuscular Volume Mean 28.8 L Corpuscular Hemoglobin Mean 33.3 Corpuscular Hemoglobin Conc ent Red Cell 17.3 H Distribution Width Platelet Count 106 #L Mean Platelet 12.8 H Volume Immature 16.500 H Granulocytes % Neutrophils % Segmented 70 Neutrophils % (Manual) Band 9 H Neutrophils % (Manual) Lymphocytes % Lymphocytes % 7 L (Manual) Reactive 2 H Lymphocytes % (Manual) Monocytes % Monocytes % 1 (Manual) Eosinophils % Basophils % Metamyelocytes 3 H % (manual) Myelocytes % 6 H (Manual) Promyelocytes % 2 H (Manual) Nucleated Red 5 H Blood Cells % Immature 1.110 H Granulocytes # Neutrophils # Neutrophils # 4.7 (Manual) Band 0.6 Neutrophils # Lymphocytes 0.4 L (Manual) Lymphocytes # Reactive 0.1 H Lymphocytes # Monocytes # Monocytes # 0.0 L (Manual) Eosinophils # Basophils # Metamyelocytes 0.2 H # Myelocytes # 0.4 H Promyelocytes # 0.1 H Nucleated Red Blood Cells # Platelet DECREASED Estimate Giant Platelets 3 H Polychromasia 1+ Anisocytosis 1+ Macrocytosis 1+ Sodium Level 140 Potassium Level 3.8 Chloride Level 110 Carbon Dioxide 26 Level Anion Gap 4 L Blood Urea 24 H Nitrogen Creatinine 0.25 L Est Glomerular Filtrat Rate mL/min Glucose Level 160 Lactic Acid 1.3 Level Calcium Level 8.4 Total Bilirubin 0.4 Direct 0.00 Bilirubin Indirect 0.4 Bilirubin Aspartate Amino 54 H Transf (AST/SGO T) Alanine 40 Aminotransferas e (ALT/SGPT) Alkaline 420 H Phosphatase Total Protein 4.4 L Albumin 2.1 L Globulin 2.30 Albumin/Globuli 0.91 n Ratio Blood Gas 10 Pressure Support Medications Medication Current Medications Miscellaneous Information (Pending [facility] Order For Wound Care) This patient tabares... PRN PRN XX WOUND CARE; Start 08/16/18 at 20:00 Acetaminophen (Tylenol Tab) 500 mg Q4H PRN PO MILD PAIN(1-3)OR ELEVATED TEMP Last administered on 08/21/18 21:07; Admin Dose 500 MG; Start 08/16/18 at 20:00 Ascorbic Acid (Vitamin C) 500 mg BID GTB Last administered on 08/27/18 09:09; Admin Dose 500 MG; Start 08/16/18 at 21:00 Bicalutamide (Casodex) 50 mg DAILY PO ; Start 08/17/18 at 09:00; Status Hold Metoprolol Tartrate (Lopressor) 25 mg BID PO Last administered on 08/27/18 09:08; Admin Dose 25 MG; Start 08/17/18 at 21:00 Fish Oil (Fish Oil) 1,000 mg BID PO Last administered on 08/27/18 09:07; Admin Dose 1,000 MG; Start 08/18/18 at 14:00 Norepinephrine 250 ml @ 1.875 mls/ hr TITRATE IV Last administered on 08/19/18 11:59; Admin Dose 1.875 MLS/HR; Start 08/19/18 at 11:00 Phenylephrine HCl 40 mg/Dextrose 250 ml @ 37.5 mls/hr TITRATE IV Last administered on 08/22/18 00:09; Admin Dose 26.25 MLS/HR; Start 08/19/18 at 14:00 Methenamine (Hiprex) 1 gm BID GTB Last administered on 08/27/18 09:07; Admin Dose 1 GM; Start 08/20/18 at 21:00 Prenat Multivit/ [place]/Iron/Folic Ac () 1 tab DAILY GTB Last administered on 08/27/18 09:08; Admin Dose 1 TAB; Start 08/21/18 at 09:00 Zinc Sulfate (Zinc Sulfate) 220 mg DAILY GTB Last administered on 08/27/18 09:08; Admin Dose 220 MG; Start 08/21/18 at 09:00 Finasteride (Proscar) 5 mg DAILY GTB Last administered on 08/27/18 09:07; Admin Dose 5 MG; Start 08/20/18 at 10:00 Morphine Sulfate (morphine) 1 mg Q4H PRN IV SEVERE PAIN LEVEL 7-10; Start 08/21/18 at 12:00 Pantoprazole (Protonix Iv) 40 mg DAILY@06 IV Last administered on 08/27/18 05:42; Admin Dose 40 MG; Start 08/25/18 at 15:00 Ciprofloxacin (Cipro) 500 mg BID@06,18 JT Last administered on 08/27/18 05:42; Admin Dose 500 MG; Start 08/26/18 at 18:00 Acetylcysteine (Mucomyst) 4 ml Q3H RESP THERAPY NEB Last administered on 08/27/18 11:21; Admin Dose 4 ML; Start 08/27/18 at 05:00 Albuterol (Proventil 0.083% (Neb)) 2.5 mg Q3 HHN Last administered on 08/27/18 11:21; Admin Dose 2.5 MG; Start 08/27/18 at 09:00 CELIA KUMAR MD August 27, 2018 12:13
--- NOTE | 2018-08-27 15:57 | CONS ---
Assessment/Plan Assessment/Plan Assessment/Plan (Daily) Assessment/Plan (Daily) 87 yo male with prostate cancer with possible bone mets presents with failure to thrive and malnutrition. S/P PEG 08/[address] Rueda Interval hx: Pt still intubated. Tolerating tube feeds at 30cc with no residuals 1. Dysphagia -GJ tube 2. Failure to thrive. 3. Alzheimer disease. 4. 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 Also metastasis in the lung and also in the liver. Patient's PSA is greater than thousand 5. Hypertension. 6. Acute hypoxemic hypercarbic respiratory failure. -s/p chest tube placement and intubation 7. Encephalopathy 8. Anemia with downward trend -retic 2.2, Iron and percent sat wnl, TIBC low, ferritin high 9. S/P thoracentesis with lymphocytic exudate -pending cytology 10. UTI 11. Encephalopathy, as per the son patient responds to command 12. Pancytopenia secondary to metastatic prostate cancer #13 Patient successfully extubated yesterday 08/25/2018, no he is on a BiPAP PLAN: Supportive ICU care FOB pending Ok to increase TF to 60cc/hr, monitor residuals q 6 hours, check phos in am Monitor electrolytes for refeeding syndrome Continue with erythromycin Abdominal binder Continue with IV hydration until pt is at goal Continue antibiotic for his UTI and possible pneumonia Possible thoracocentesis today Consultation Date/Type/Reason Admit Date/Time Aug 17, 2018 at 09:51 Initial Consult Date 08/21/18 Requesting Provider: SANIA WHITTINGTON MD Date/Time of Note DATE: 08/27/18 TIME: 15:55 24 HR Interval Summary Free Text/Dictation Patient is on BiPAP now Tolerating feeding no evidence of aspiration of formula Exam/Review of Systems Exam Vitals Vital Signs Date Temp Pulse Resp B/P (MAP) Pulse Ox O2 O2 Flow FiO2 Time Delivery Rate 08/27/18 117 100 30 14:57 08/27/18 27 121/65 Room Air 11:00 (83) 08/27/18 98.1 08:00 08/26/18 8.0 22:16 Intake and Output 08/26/18 08/26/18 08/27/18 1515:00 23:00 07:00 IntakeIntake Total 1165 ml 1090 ml 420 ml OutputOutput Total 560 ml 530 ml 690 ml BalanceBalance 605 ml 560 ml -270 ml Constitutional: non-verbal ENMT: nl external ears & nose, nl lips & teeth, nl nasal mucosa & septum Neck: supple, non-tender Respiratory: diminished breath sounds Musculoskeletal: nl extremities to inspection, nl gait and stance Extremities: calf tenderness Neurological: lethargic Results Result Diagram: 08/27/18 0436 08/27/18 0436 Results 24hrs Laboratory Tests Test 08/26/18 21:54 08/27/18 00:45 08/27/18 04:36 08/27/18 05:00 Blood Gas Blood arterial Blood arterial Blood arterial Specimen Source Arterial Blood 08/26/2018 10:00: 08/27/2018 1:00:0 08/27/2018 5:00:3 Date Drawn 04 PM 2 AM 6 AM Arterial Blood 7.453 H 7.383 7.444 pH (Temp corrected ) Arterial Blood 35.9 42.2 38.2 pCO2 (Temp correct) Arterial Blood 80.5 244.1 H 424.1 H pO2 (Temp corrected ) Arterial Blood 24.6 24.6 25.6 HCO3 Arterial Blood 0.9 -0.5 1.6 Base Excess Arterial Blood 96.5 99.2 99.6 Oxygen Saturati on Jarod Test N/A ACCEPTAB ACCEPTAB Arterial Blood Left Radial Left Radial Left Radial Gas Puncture Site Arterial 0.6 0.3 0.4 Blood Carboxyhe moglobin Arterial Blood 0.4 0.4 0.6 Methemoglobin Blood Gas A-a 69.6 H 426.7 H 250.7 H O2 Differential Oxyhemoglobin 95.5 98.5 98.6 Percent Blood Gas 37.0 37.0 37.0 Temperature Blood Gas 26 28 23 Actual Respiration Rat e Blood Gas NASAL CANNULA MASK - BIPAP MASK - BIPAP Modality FiO2 27.0 100.0 100.0 Blood Gas S.H. MG MA Notified Whom Blood Gas 08/26/2018 10:06: 08/27/2018 1:10:2 08/27/2018 5:15:2 Notified Time 04 PM 5 AM 2 AM Blood Gas 20.0 20.0 Respiration Rate Blood Gas Tidal 502.0 Volume Blood Gas 05/09 05/09 IPAP/EPAP Ratio White Blood 6.7 # Count Red Blood Count 3.79 L Hemoglobin 10.9 L Hematocrit 32.7 L Mean 86.3 Corpuscular Volume Mean 28.8 L Corpuscular Hemoglobin Mean 33.3 Corpuscular Hemoglobin Conc ent Red Cell 17.3 H Distribution Width Platelet Count 106 #L Mean Platelet 12.8 H Volume Immature 16.500 H Granulocytes % Neutrophils % Segmented 70 Neutrophils % (Manual) Band 9 H Neutrophils % (Manual) Lymphocytes % Lymphocytes % 7 L (Manual) Reactive 2 H Lymphocytes % (Manual) Monocytes % Monocytes % 1 (Manual) Eosinophils % Basophils % Metamyelocytes 3 H % (manual) Myelocytes % 6 H (Manual) Promyelocytes % 2 H (Manual) Nucleated Red 5 H Blood Cells % Immature 1.110 H Granulocytes # Neutrophils # Neutrophils # 4.7 (Manual) Band 0.6 Neutrophils # Lymphocytes 0.4 L (Manual) Lymphocytes # Reactive 0.1 H Lymphocytes # Monocytes # Monocytes # 0.0 L (Manual) Eosinophils # Basophils # Metamyelocytes 0.2 H # Myelocytes # 0.4 H Promyelocytes # 0.1 H Nucleated Red Blood Cells # Platelet DECREASED Estimate Giant Platelets 3 H Polychromasia 1+ Anisocytosis 1+ Macrocytosis 1+ Sodium Level 140 Potassium Level 3.8 Chloride Level 110 Carbon Dioxide 26 Level Anion Gap 4 L Blood Urea 24 H Nitrogen Creatinine 0.25 L Est Glomerular Filtrat Rate mL/min Glucose Level 160 Lactic Acid 1.3 Level Calcium Level 8.4 Total Bilirubin 0.4 Direct 0.00 Bilirubin Indirect 0.4 Bilirubin Aspartate Amino 54 H Transf (AST/SGO T) Alanine 40 Aminotransferas e (ALT/SGPT) Alkaline 420 H Phosphatase Total Protein 4.4 L Albumin 2.1 L Globulin 2.30 Albumin/Globuli 0.91 n Ratio Blood Gas 10 Pressure Support Medications Medication Current Medications Miscellaneous Information (Pending [facility] Order For Wound Care) This patient tabares... PRN PRN XX WOUND CARE; Start 08/16/18 at 20:00 Acetaminophen (Tylenol Tab) 500 mg Q4H PRN PO MILD PAIN(1-3)OR ELEVATED TEMP Last administered on 08/21/18at 21:07; Admin Dose 500 MG; Start 08/16/18 at 20:00 Ascorbic Acid (Vitamin C) 500 mg BID GTB Last administered on 08/27/18at 09:09; Admin Dose 500 MG; Start 08/16/18 at 21:00 Bicalutamide (Casodex) 50 mg DAILY PO ; Start 08/17/18 at 09:00; Status Hold Metoprolol Tartrate (Lopressor) 25 mg BID PO Last administered on 08/27/18 09:08; Admin Dose 25 MG; Start 08/17/18 at 21:00 Fish Oil (Fish Oil) 1,000 mg BID PO Last administered on 08/27/18 09:07; Admin Dose 1,000 MG; Start 08/18/18 at 14:00 Norepinephrine 250 ml @ 1.875 mls/ hr TITRATE IV Last administered on 08/19/18 11:59; Admin Dose 1.875 MLS/HR; Start 08/19/18 at 11:00 Phenylephrine HCl 40 mg/Dextrose 250 ml @ 37.5 mls/hr TITRATE IV Last administered on 08/22/18 00:09; Admin Dose 26.25 MLS/HR; Start 08/19/18 at 14:00 Methenamine (Hiprex) 1 gm BID GTB Last administered on 08/27/18 09:07; Admin Dose 1 GM; Start 08/20/18 at 21:00 Prenat Multivit/ [place]/Iron/Folic Ac () 1 tab DAILY GTB Last administered on 08/27/18 09:08; Admin Dose 1 TAB; Start 08/21/18 at 09:00 Zinc Sulfate (Zinc Sulfate) 220 mg DAILY GTB Last administered on 08/27/18 09:08; Admin Dose 220 MG; Start 08/21/18 at 09:00 Finasteride (Proscar) 5 mg DAILY GTB Last administered on 08/27/18 09:07; Admin Dose 5 MG; Start 08/20/18 at 10:00 Morphine Sulfate (morphine) 1 mg Q4H PRN IV SEVERE PAIN LEVEL 7-10; Start 08/21/18 at 12:00 Pantoprazole (Protonix Iv) 40 mg DAILY@06 IV Last administered on 08/27/18 05:42; Admin Dose 40 MG; Start 08/25/18 at 15:00 Ciprofloxacin (Cipro) 500 mg BID@06,18 JT Last administered on 08/27/18 05:42; Admin Dose 500 MG; Start 08/26/18 at 18:00 Acetylcysteine (Mucomyst) 4 ml Q3H RESP THERAPY NEB Last administered on 08/27/18 14:04; Admin Dose 4 ML; Start 08/27/18 at 05:00 Albuterol (Proventil 0.083% (Neb)) 2.5 mg Q3 HHN Last administered on 08/27/18 14:04; Admin Dose 2.5 MG; Start 08/27/18 at 09:00 AILIN RUEDA MD August 27, 2018 15:57
[2018-08-27] MEDS ORDERED: LIDOCAINE 1% (MPF) 5 ML VIAL ONE (16:44)
--- NOTE | 2018-08-27 17:07 | PN ---
Date/Time of Note Date/Time of Note DATE: 08/27/18 TIME: 17:05 Assessment/Plan Lines/Catheters IV Catheter Type (from Nrsg): Central Line Villanueva in Place (from Nrsg): No Assessment/Plan Assessment/Plan Respiratory failure Bilateral pleural effusions Chest tube draining about 2 to 300 cc daily Left-sided mild to moderate pleural effusion Coagulopathy corrected mostly And receives platelet count is now up to 100 He is on his second units of packed RBCs for hemoglobin of 10 I had a long discussion with the patients family SP thoracentesis on the left side will plan for left pleurex cath Discussed at length with the patient's family and the referring physician Subjective 24 Hr Interval Summary Constitutional: improved Pain Control: mild Exam/Review of Systems Vital Signs Vitals Vital Signs Date Temp Pulse Resp B/P (MAP) Pulse Ox O2 O2 Flow FiO2 Time Delivery Rate 08/27/18 120 100 30 16:54 08/27/18 98.1 17 123/80 Room Air 16:00 (94) 08/26/18 8.0 22:16 Intake and Output 08/26/18 08/26/18 08/27/18 1515:00 23:00 07:00 IntakeIntake Total 1165 ml 1090 ml 420 ml OutputOutput Total 560 ml 530 ml 690 ml BalanceBalance 605 ml 560 ml -270 ml Exam Eyes: nl conjunctiva, EOMI, nl lids, nl sclera ENMT: nl external ears & nose, nl lips & teeth, nl nasal mucosa & septum, mucosa pink and moist Neck: supple, non-tender Respiratory: clear to auscultation, normal air movement Cardiovascular: regular rate and rhythm, nl pulses Gastrointestinal: soft, nl liver, spleen, non-tender Musculoskeletal: nl extremities to inspection, nl gait and stance Results Result Diagram: 08/27/18 0436 08/27/18 0436 MARY CARMEN GREER MD August 27, 2018 17:06
[2018-08-27] MEDS: METOPROLOL 25 MG TAB JT SCH (21:16)
[2018-08-28] VITALS (45 sets, daily range): BP systolic 95–130; BP diastolic 37–90; PULSE 79–127; RESP 13–29
[2018-08-28] MEDS: ARTIFICIAL TEARS 15 ML OPH BOTH EYES SCH ×4 (00:09→21:15)
[2018-08-28] MEDS: LEVALBUTEROL (NEB) 0.63 MG/3 ML AMP HHN SCH ×4 (01:41→20:11)
--- NOTE | 2018-08-28 02:34 | PN ---
DATE: 08/27/2018 SUBJECTIVE: Follow up on acute hypoxemic hypercarbic respiratory failure, metastatic prostate cancer , dysphagia, pneumonia and UTI. The patient was extubated; however, continued to remain hypoxemic an d therefore had to be placed on BiPAP. The patient also remains weak and lethargic and no useful com munication was possible. The patient did not have any fever or chills. No reported bleeding from an y site. The patient continues to have sinus tachycardia. PHYSICAL EXAMINATION: GENERAL: Revealed the patient to be lethargic but arousable. VITAL SIGNS: Today temperature 98.1, pulse 104, respirations 17, blood pressure 123/80, O2 saturatio n 100% on FiO2 of 30%. HEENT: Atraumatic, normocephalic. No eye discharge or redness. Oropharynx examination was deferred due to BiPAP. NECK: No mass. CHEST: Diminished air entry bilaterally. No use of accessory muscles. CARDIOVASCULAR: The patient is currently in sinus rhythm. No murmur. ABDOMEN: Soft, nondistended, nontender. G-tube in place. EXTREMITIES: No leg edema. NEUROLOGIC: The patient is lethargic, but arousable. No useful examination was possible. LABORATORY DATA: Done this morning: ABG pH 7.4, pCO2 of 38.2, pO2 of 424 with O2 sat of 99.6%. Anny brenton done this morning revealed sodium 140, potassium 3.8, BUN 24, creatinine 0.25, glucose 160, ca lcium 8.4. Lactic acid only 1.3. AST 54, ALT 40, alkaline phosphatase 420. WBC 6.7, hemoglobin 10. 9, platelet 106. IMPRESSION: 1. Acute hypoxemic hypercarbic respiratory failure. Continue BiPAP as tolerated. Continue to wean off BiPAP and probably try high flow oxygen. 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 2. Metastatic prostate cancer. The patient remains on Casodex. Continue to monitor. The patient i s not a candidate for aggressive treatment. 3. Enterobacter cloacae pneumonia and Pseudomonas aeruginosa urinary tract infection. Continue Cipr o. 4. Pancytopenia, stable. 5. Sacrococcygeal decubitus. Continue local wound care. 6. Dysphagia. Continue G-tube feeding. 7. The patient continues to remain frail and weak. The patient's family has made him DNR. We will wait for BiPAP weaning and then patient's family is planning to take him home under home hospice. 8. Bilateral pleural effusions. The patient had a chest tube on the right side. The patient's family was updated regarding patient's condition and plan of care. We will continue to follow. Dictated By: SANIA REZA/NTS Conf#: [id number] DID#: [id number] CC: LUIS ALBERTO EDWARD MD; AILIN RUEDA MD;*EndCC*
[2018-08-28] MEDS: ACETYLCYSTEINE 20% 4 ML VIAL NEB SCH ×4 (04:11→20:11)
[2018-08-28] MEDS: PANTOPRAZOLE 40 MG INJ IV SCH (05:56)
[2018-08-28] MEDS: CIPROFLOXACIN 500 MG TAB JT SCH (05:56)
--- NOTE | 2018-08-28 08:07 | CONS ---
Consult Date/Type/Reason Admit Date/Time Aug 17, 2018 at 09:51 Initial Consult Date 08/17/18 Type of Consultation: Pulm/CCM Requesting Provider: SANIA WHITTINGTON MD Date/Time of Note DATE: 08/28/18 TIME: 08:03 Subjective NO acute vents - pt in SINUS now - tele reviewed - no episodes of a. fib noted, some PACs - con't supportive care - overall poor prognosis. ROS: NO F/C/N/V + SOB Objective Vitals Vital Signs Date Temp Pulse Resp B/P (MAP) Pulse Ox O2 O2 Flow FiO2 Time Delivery Rate 08/28/18 116 25 130/62 100 Room Air 06:00 (84) 08/28/18 30 05:22 08/28/18 98.2 04:00 08/26/18 8.0 22:16 Intake and Output 08/27/18 08/27/18 08/28/18 1515:00 23:00 07:00 IntakeIntake Total 350 ml 470 ml 520 ml OutputOutput Total 465 ml 1690 ml 290 ml BalanceBalance -115 ml -1220 ml 230 ml Exam General: WN/WD/NAD, AOx 0 HEENT: Unicetric/atraumatic/EOMI (does not follow commands) - FM on NECK: JVD elevated, no thyromegaly Lymph: no lymphadenopathy HEART: regular with no S3, II/ systolic murmur at apex LUNGS: Coarse sounds, wheezing ABD: soft, NT, ND, +BS : Intact Neuro: non focal SKIN: chronic changes EXT: trace edema Results/Medications Result Diagram: 08/27/18 0436 08/27/18 0436 Results 24 hrs Laboratory Tests Test 08/28/18 07:00 Blood Gas Specimen Source Blood arterial Arterial Blood Date Drawn 08/28/2018 7:14:32 AM Arterial Blood pH (Temp corrected) 7.511 H Arterial Blood pCO2 (Temp correct) 28.6 L Arterial Blood pO2 (Temp corrected) 131.3 H Arterial Blood HCO3 22.4 Arterial Blood Base Excess 0.1 Arterial Blood Oxygen Saturation 98.5 Jarod Test ACCEPTAB Arterial Blood Gas Puncture Site Right Radial Arterial Blood Carboxyhemoglobin 0.1 Arterial Blood Methemoglobin 0.4 Blood Gas A-a O2 Differential 49.0 H Oxyhemoglobin Percent 98.0 Blood Gas Temperature 37.0 Blood Gas Respiration Rate 20.0 Blood Gas Actual Respiration Rate 23 Blood Gas Modality MASK - BIPAP FiO2 30.0 Blood Gas Pressure Support 10 Blood Gas IPAP/EPAP Ratio 15/5 Blood Gas Notified Whom TM Blood Gas Notified Time 08/28/2018 7:35:10 AM Home Meds Reported Medications [Pomi-T] No Conflict Check 08/16/18 Multivitamin/Iron/Folic Acid (Centrum Adults Tablet) 1 Each Tablet, 1 EACH PO, TAB 08/16/18 Dutasteride* (Avodart*) 0.5 Mg Capsule, 0.5 MG PO DAILY, CAP 08/16/18 Bicalutamide* (Bicalutamide*) 50 Mg Tablet, 50 MG PO DAILY, TAB 08/16/18 Sodium Chloride (Sodium Chloride) 1 Gm Granules, 1 GM MC 08/16/18 Vitamin E* (Vitamin E*) 200 Unit Capsule, 180 MG PO DAILY, CAP 08/16/18 Folic Acid* (Folic Acid*) 1 Mg Tablet, 1 MG PO DAILY, TAB 08/16/18 Memantine* (Namenda* XR) 28 Mg Cap.spr.24, 28 MG PO DAILY, #30 TAB 08/16/18 Tamsulosin Hcl* (Flomax*) 0.4 Mg Cap.er.24h, 0.4 MG PO DAILY, CAP 08/16/18 Nitrofurantoin Monohyd Macrocr* (Macrobid*) 100 Mg Capsr, 100 MG PO BID, CAP 08/16/18 Medications Current Medications Miscellaneous Information (Pending [facility] Order For Wound Care) This patient tabares... PRN PRN XX WOUND CARE; Start 08/16/18 at 20:00 Acetaminophen (Tylenol Tab) 500 mg Q4H PRN PO MILD PAIN(1-3)OR ELEVATED TEMP Last administered on 08/21/18at 21:07; Admin Dose 500 MG; Start 08/16/18 at 20:00 Ascorbic Acid (Vitamin C) 500 mg BID GTB Last administered on 08/27/18at 21:16; Admin Dose 500 MG; Start 08/16/18 at 21:00 Bicalutamide (Casodex) 50 mg DAILY PO ; Start 08/17/18 at 09:00; Status Hold Fish Oil (Fish Oil) 1,000 mg BID PO Last administered on 08/27/18 09:07; Admin Dose 1,000 MG; Start 08/18/18 at 14:00 Norepinephrine 250 ml @ 1.875 mls/ hr TITRATE IV Last administered on 08/19/18 11:59; Admin Dose 1.875 MLS/HR; Start 08/19/18 at 11:00 Phenylephrine HCl 40 mg/Dextrose 250 ml @ 37.5 mls/hr TITRATE IV Last administered on 08/22/18 00:09; Admin Dose 26.25 MLS/HR; Start 08/19/18 at 14:00 Methenamine (Hiprex) 1 gm BID GTB Last administered on 08/27/18 21:16; Admin Dose 1 GM; Start 08/20/18 at 21:00 Prenat Multivit/ Rn Surgical/Iron/Folic Ac () 1 tab DAILY GTB Last administered on 08/27/18 09:08; Admin Dose 1 TAB; Start 08/21/18 at 09:00 Zinc Sulfate (Zinc Sulfate) 220 mg DAILY GTB Last administered on 08/27/18 09: 08; Admin Dose 220 MG; Start 08/21/18 at 09:00 Finasteride (Proscar) 5 mg DAILY GTB Last administered on 08/27/18 09:07; Admin Dose 5 MG; Start 08/20/18 at 10:00 Morphine Sulfate (morphine) 1 mg Q4H PRN IV SEVERE PAIN LEVEL 7-10; Start 08/21/18 at 12:00 Pantoprazole (Protonix Iv) 40 mg DAILY@06 IV Last administered on 08/28/18 05:56; Admin Dose 40 MG; Start 08/25/18 at 15:00 Ciprofloxacin (Cipro) 500 mg BID@06,18 JT Last administered on 08/28/18 05:56; Admin Dose 500 MG; Start 08/26/18 at 18:00 Eye Lubricant (Artificial Tears Oph) 1 drop TID BOTH EYES Last administered on 08/28/18 00:09; Admin Dose 1 DROP; Start 08/27/18 at 21:00 Metoprolol Tartrate (Lopressor) 25 mg BID JT Last administered on 08/27/18 21:16; Admin Dose 25 MG; Start 08/27/18 at 21:00 Acetylcysteine (Mucomyst) 4 ml Q6H RESP THERAPY NEB Last administered on 08/28/18at 04:11; Admin Dose 4 ML; Start 08/28/18 at 05:00 Levalbuterol (Xopenex Neb) 0.63 mg Q6H RESP THERAPY HHN Last administered on 08/28/18at 01:41; Admin Dose 0.63 MG; Start 08/28/18 at 02:00 Assessment/Plan Hospital Course (Demo Recall) 1. Abnormal electrocardiogram, assess for acute coronary syndrome.-neg trop x 2. NL EF by echo this admi - r/o LA, no interbention currently planned, now in ICU - on bria gtt - will monitor clinically now. NOW in sinus - episodes of a tach - brief - will allow for now. TELE REVIEWED -no A. FIB - supportive Rx as tolerated 2. Cardiac arrhythmia at this time, most consistent with sinus arrhythmia.-mild tachycardia, sinus arrythmia. NL TSH - now with ainustach/a.tach- respiratory driven - not sure if BP will tolerate amio gtt - will hold for BP to stabilize.. 3. History of hypertension with per report hypotension at the end of the procedure. Better now. Now low. 4. Dysphagia, status post PEG - GI follows. 5. Failure to thrive- stable 6. History of prostate carcinoma - poor prognoss - dispo per primary team. 7. History of aplastic anemia with ongoing anemia at this time - no active bleeding now. [id number] now. Tolerated blood Tx - better H/H now. Responded to blood X now. 8. Hypernatremia. 9. Prerenal state - renal team follows. 10. Pancytopenia. JANETT RAMIREZ MD August 28, 2018 08:07
[2018-08-28] MEDS: ZINC SULFATE 220 MG CAP GTB SCH (08:40)
[2018-08-28] MEDS: ASCORBIC ACID 500 MG TAB GTB SCH ×2 (08:40→21:15)
[2018-08-28] MEDS: FISH OIL 1,000 MG CAP PO SCH ×2 (08:40→21:15)
[2018-08-28] MEDS: FINASTERIDE 5 MG TAB GTB SCH (08:40)
[2018-08-28] MEDS: METHENAMINE 1 GM TAB GTB SCH ×2 (08:40→21:15)
[2018-08-28] MEDS: PRENATAL VITAMIN GTB SCH (08:41)
[2018-08-28] MEDS: METOPROLOL 25 MG TAB JT SCH ×2 (08:41→21:17)
[2018-08-28] MEDS: BALSAM PERU/CASTOR OIL 60 GM TUBE TOP SCH ×2 (08:42→21:17)
--- NOTE | 2018-08-28 10:41 | CONS ---
Consult Date/Type/Reason Admit Date/Time Aug 17, 2018 at 09:51 Initial Consult Date 08/17/18 Type of Consult Pulmonary Requesting Provider: SANIA WHITTINGTON MD Date/Time of Note DATE: 08/28/18 TIME: 10:35 Subjective Status post thoracentesis. Radiographically and clinically improved. Off bilevel ventilation this morning. Objective Vital Signs Date Temp Pulse Resp B/P (MAP) Pulse Ox O2 O2 Flow FiO2 Time Delivery Rate 08/28/18 79 18 95/41 (59) 100 Nasal 4.0 09:30 Cannula 08/28/18 97.4 08:00 08/28/18 30 05:22 Intake and Output 08/27/18 08/27/18 08/28/18 1515:00 23:00 07:00 IntakeIntake Total 350 ml 470 ml 520 ml OutputOutput Total 465 ml 1690 ml 290 ml BalanceBalance -115 ml -1220 ml 230 ml Exam GENERAL: Frail elderly gentleman on nasal cannula oxygen VITAL SIGNS: per chart NECK: Supple. No JVD or lymphadenopathy. CARDIAC EXAM: S1, S2. No added sounds or murmurs. CHEST: Diminished air entry bilaterally ABDOMEN: Soft, nontender. No guarding or rebound. EXTREMITIES: No cyanosis, clubbing edema +1 NEUROLOGIC: Generalized weakness. Vent Setting Ventilator Support Mode: AC Fraction of Inspired Oxygen pe: 40 Positive End Expiratory Pressu: 5.0 Results/Medications Result Diagram: 08/27/18 0436 08/27/18 0436 Results 24 hrs Laboratory Tests Test 08/28/18 07:00 Blood Gas Specimen Source Blood arterial Arterial Blood Date Drawn 08/28/2018 7:14:32 AM Arterial Blood pH (Temp corrected) 7.511 H Arterial Blood pCO2 (Temp correct) 28.6 L Arterial Blood pO2 (Temp corrected) 131.3 H Arterial Blood HCO3 22.4 Arterial Blood Base Excess 0.1 Arterial Blood Oxygen Saturation 98.5 Jarod Test ACCEPTAB Arterial Blood Gas Puncture Site Right Radial Arterial Blood Carboxyhemoglobin 0.1 Arterial Blood Methemoglobin 0.4 Blood Gas A-a O2 Differential 49.0 H Oxyhemoglobin Percent 98.0 Blood Gas Temperature 37.0 Blood Gas Respiration Rate 20.0 Blood Gas Actual Respiration Rate 23 Blood Gas Modality MASK - BIPAP FiO2 30.0 Blood Gas Pressure Support 10 Blood Gas IPAP/EPAP Ratio 15/5 Blood Gas Notified Whom TM Blood Gas Notified Time 08/28/2018 7:35:10 AM Medications Current Medications Miscellaneous Information ([facility] This patient tabares... PRN PRN XX WOUND CARE; Start 08/16/18 at 20:00 Acetaminophen (Tylenol Tab) 500 mg Q4H PRN PO MILD PAIN(1-3)OR ELEVATED TEMP Last administered on 08/21/18 21:07; Admin Dose 500 MG; Start 08/16/18 at 20:00 Ascorbic Acid (Vitamin C) 500 mg BID GTB Last administered on 08/28/18 08:40; Admin Dose 500 MG; Start 08/16/18 at 21:00 Bicalutamide (Casodex) 50 mg DAILY PO ; Start 08/17/18 at 09:00; Status Hold Fish Oil (Fish Oil) 1,000 mg BID PO Last administered on 08/28/18 08:40; Admin Dose 1,000 MG; Start 08/18/18 at 14:00 Norepinephrine 250 ml @ 1.875 mls/ hr TITRATE IV Last administered on 08/19/18 at 11:59; Admin Dose 1.875 MLS/HR; Start 08/19/18 at 11:00 Phenylephrine HCl 40 mg/Dextrose 250 ml @ 37.5 mls/hr TITRATE IV Last administered on 08/22/18 00:09; Admin Dose 26.25 MLS/HR; Start 08/19/18 at 14:00 Methenamine (Hiprex) 1 gm BID GTB Last administered on 08/28/18 08:40; Admin Dose 1 GM; Start 08/20/18 at 21:00 Prenat Multivit/ [employer]/Iron/Folic Ac () 1 tab DAILY GTB Last admin istered on 08/28/18 08:41; Admin Dose 1 TAB; Start 08/21/18 at 09:00 Zinc Sulfate (Zinc Sulfate) 220 mg DAILY GTB Last administered on 08/28/18 08:40; Admin Dose 220 MG; Start 08/21/18 at 09:00 Finasteride (Proscar) 5 mg DAILY GTB Last administered on 08/28/18 08:40; Admin Dose 5 MG; Start 08/20/18 at 10:00 Morphine Sulfate (morphine) 1 mg Q4H PRN IV SEVERE PAIN LEVEL 7-10; Start 08/21/18 at 12:00 Pantoprazole (Protonix Iv) 40 mg DAILY@06 IV Last administered on 08/28/18 05:56; Admin Dose 40 MG; Start 08/25/18 at 15:00 Ciprofloxacin (Cipro) 500 mg BID@06,18 JT Last administered on 08/28/18 05:56; Admin Dose 500 MG; Start 08/26/18 at 18:00 Eye Lubricant (Artificial Tears Oph) 1 drop TID BOTH EYES Last administered on 08/28/18 08:41; Admin Dose 1 DROP; Start 08/27/18 at 21:00 Metoprolol Tartrate (Lopressor) 25 mg BID JT Last administered on 08/28/18 08:41; Admin Dose 25 MG; Start 08/27/18 at 21:00 Acetylcysteine (Mucomyst) 4 ml Q6H RESP THERAPY NEB Last administered on 08/28/18 08:13; Admin Dose 4 ML; Start 08/28/18 at 05:00 Levalbuterol (Xopenex Neb) 0.63 mg Q6H RESP THERAPY HHN Last administered on 08/28/18 08:13; Admin Dose 0.63 MG; Start 08/28/18 at 02:00 Assessment/Plan Hospital Course (Demo Recall) IMP: 1. Acute Hypercapnic/Hypoxemic Respiratory Failure 2/2 L mainstem mucus plugging with complete left lung atelectasis s/p intubation. Resulting positive pressure ventilation thereafter likely led to a right-sided pneumothorax with tension physiology--now extubated. Moderate left pleural effusion with progressive hypoxemia, 2. Tension PTX--resolved 3. Complete Left Lung ATX--2/2 mucus plugging, now re-expanded. 4. Intermittent PSVT--resolved 5. Right lung pneumonia--likely aspiration 6. UTI 7. 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 Prostate Cancer 9. Severe Cachexia/deconditioning 10.Pancytopenia 11.GIB 12.DNR/DNI RECS: 1. Strict aspiration precautions; HOB > 30 2. Suctioning/CPT as needed 3. Monitor off bilevel ventilation. Chest tube to waterseal if remains stable off bilevel. 4. Continue TF's/free H20 5. Avoid all sedatives/narcotics 35 min cc time Overall prognosis extremely poor family are aware. LUIZ RAMOS MD[facility] August 28, 2018 10:41
--- NOTE | 2018-08-28 11:59 | CONS ---
Assessment/Plan Assessment/Plan Assessment/Plan (Daily) 1. acute prerenal azotemia 2. Septic shock 2/2 UTI 3. right sided pneumothorax s/p R chest tube placement 4. acute hypoxemic respiratory failure intubated on ventilator 5. Metastatic prostate CA 6. Dysphagia s/p G tube placement 7. UTI with Urine cx growign Pseudomonas Plan : levophed for BP support BUN/Cr 24/0.25, Other electrolytes stable - on Ciprofloxacin 500mg PJ Q am ID and pulmonary has been following place Chest tube in place, still drainage output 300cc will follow up Consultation Date/Type/Reason Admit Date/Time Aug 17, 2018 at 09:51 Initial Consult Date 08/21/18 Type of Consult NEPHROLOGY Requesting Provider: SANIA WHITTINGTON MD Date/Time of Note DATE: 08/28/18 TIME: 11:58 24 HR Interval Summary Free Text/Dictation pt has been having watery stools, Bp stable Exam/Review of Systems Exam Vitals Vital Signs Date Temp Pulse Resp B/P (MAP) Pulse Ox O2 O2 Flow FiO2 Time Delivery Rate 08/28/18 79 18 95/41 (59) 100 Nasal 4.0 09:30 Cannula 08/28/18 30 09:07 08/28/18 97.4 08:00 Intake and Output 08/27/18 08/27/18 08/28/18 1515:00 23:00 07:00 IntakeIntake Total 350 ml 470 ml 520 ml OutputOutput Total 465 ml 1690 ml 290 ml BalanceBalance -115 ml -1220 ml 230 ml Exam Constitutional: non-verbal, frail, intubated on ventilator Respiratory: crackles/rales, diminished breath sounds Cardiovascular: other (tachycardic and regular) Gastrointestinal: soft, non-tender, other (+feeding tube) Genitourinary - Male: other (FC) Musculoskeletal: No swelling Extremities: pitting pedal edema Neurological: unresponsive Skin: rash or lesions (ecchymoses of b/l UE) Results Result Diagram: 08/27/18 0436 08/27/18 0436 Results 24hrs Laboratory Tests Test 08/28/18 07:00 Blood Gas Specimen Source Blood arterial Arterial Blood Date Drawn 08/28/2018 7:14:32 AM Arterial Blood pH (Temp corrected) 7.511 H Arterial Blood pCO2 (Temp correct) 28.6 L Arterial Blood pO2 (Temp corrected) 131.3 H Arterial Blood HCO3 22.4 Arterial Blood Base Excess 0.1 Arterial Blood Oxygen Saturation 98.5 Jarod Test ACCEPTAB Arterial Blood Gas Puncture Site Right Radial Arterial Blood Carboxyhemoglobin 0.1 Arterial Blood Methemoglobin 0.4 Blood Gas A-a O2 Differential 49.0 H Oxyhemoglobin Percent 98.0 Blood Gas Temperature 37.0 Blood Gas Respiration Rate 20.0 Blood Gas Actual Respiration Rate 23 Blood Gas Modality MASK - BIPAP FiO2 30.0 Blood Gas Pressure Support 10 Blood Gas IPAP/EPAP Ratio 05/09 Blood Gas Notified Whom TM Blood Gas Notified Time 08/28/2018 7:35:10 AM Medications Medication Current Medications Miscellaneous Information [facility] This patient tabares... PRN PRN XX WOUND CARE; Start 08/16/18 at 20:00 Acetaminophen (Tylenol Tab) 500 mg Q4H PRN PO MILD PAIN(1-3)OR ELEVATED TEMP Last administered on 08/21/18 21:07; Admin Dose 500 MG; Start 08/16/18 at 20:00 Ascorbic Acid (Vitamin C) 500 mg BID GTB Last administered on 08/28/18 08:40; Admin Dose 500 MG; Start 08/16/18 at 21:00 Bicalutamide (Casodex) 50 mg DAILY PO ; Start 08/17/18 at 09:00; Status Hold Fish Oil (Fish Oil) 1,000 mg BID PO Last administered on 08/28/18 08:40; Admin Dose 1,000 MG; Start 08/18/18 at 14:00 Norepinephrine 250 ml @ 1.875 mls/ hr TITRATE IV Last administered on 08/19/18 11:59; Admin Dose 1.875 MLS/HR; Start 08/19/18 at 11:00 Phenylephrine HCl 40 mg/Dextrose 250 ml @ 37.5 mls/hr TITRATE IV Last admi nistered on 08/22/18 00:09; Admin Dose 26.25 MLS/HR; Start 08/19/18 at 14:00 Methenamine (Hiprex) 1 gm BID GTB Last administered on 08/28/18 08:40; Admin Dose 1 GM; Start 08/20/18 at 21:00 Prenat Multivit/ [place]/Iron/Folic Ac () 1 tab DAILY GTB Last administered on 08/28/18 08:41; Admin Dose 1 TAB; Start 08/21/18 at 09:00 Zinc Sulfate (Zinc Sulfate) 220 mg DAILY GTB Last administered on 08/28/18 08:40; Admin Dose 220 MG; Start 08/21/18 at 09:00 Finasteride (Proscar) 5 mg DAILY GTB Last administered on 08/28/18 08:40; Admin Dose 5 MG; Start 08/20/18 at 10:00 Morphine Sulfate (morphine) 1 mg Q4H PRN IV SEVERE PAIN LEVEL 7-10; Start 08/21/18 at 12:00 Pantoprazole (Protonix Iv) 40 mg DAILY@06 IV Last administered on 08/28/18 05:56; Admin Dose 40 MG; Start 08/25/18 at 15:00 Ciprofloxacin (Cipro) 500 mg BID@06,18 JT Last administered on 08/28/18 05:56; Admin Dose 500 MG; Start 08/26/18 at 18:00 Eye Lubricant (Artificial Tears Oph) 1 drop TID BOTH EYES Last administered on 08/28/18 08:41; Admin Dose 1 DROP; Start 08/27/18 at 21:00 Metoprolol Tartrate (Lopressor) 25 mg BID JT Last administered on 08/28/18 08:41; Admin Dose 25 MG; Start 08/27/18 at 21:00 Acetylcysteine (Mucomyst) 4 ml Q6H RESP THERAPY NEB Last administered on 08/28/18 08:13; Admin Dose 4 ML; Start 08/28/18 at 05:00 Levalbuterol (Xopenex Neb) 0.63 mg Q6H RESP THERAPY HHN Last administered on 08/28/18 08:13; Admin Dose 0.63 MG; Start 08/28/18 at 02:00 CELIA KUMAR MD August 28, 2018 11:59
--- NOTE | 2018-08-28 13:41 | CONS ---
Assessment/Plan Assessment/Plan Hospital Course (Demo Recall) # sepsis, SIRS, resp - septic shock due to UTI plus SIRS due to possible aspiration, pneumothorax, improved - septic shock due to UTI - SIRS due to possible aspiration pneumonitis - probable aspiration pneumonitis - pneumonia vs. colonization of the airway due to Enterobacter - treated with ce fepime (08/21/2018-08/26/18) - b/l pleural effusion - s/p R sided thoracentesis on 08/17/2018. LDH 499, protein 3.2, WBC 89 with 6.8% neutrophils. Cultures of the fluid are negative; no malignant cells by cytology - s/p L sided thoracentesis on 08/24/2018. LDH 481, protein 2.1, WBC 345 with 31.7% neutrophils - s/p R PTX - s/p placement of R chest tube on 08/19/2018 - acute hypoxic resp failure - s/p intubation on 08/19/2018 - s/p extubation on 08/25/2018 # , heme/onc - UTI due to pseudomonas - treated with cefepime (08/21/2018-08/26/18) - prostate CA, with probable mets to the lungs and liver (based on CT result) - h/o recent chemotherapy for his prostate CA - frequent UTI prior to admission. Pt was on long-term antibiotic for prophylaxis according to Pt's son - pancytopenia, improving # GI, alimentary - transaminitis, probably a combination of liver metastasis and shock liver - moderately distended gallbladder with a moderate amount of sludge on liver SAKINA on 08/22/2018 - liver mets on liver SAKINA on 08/22/2018 - s/p failure to thrive - s/p placement of G-J tube on 08/16/2018 # other conditions - Alzheimer's dementia - acute metabolic encephalopathy Recommendations: - Continue pGT Ciprofloxacin (08/26/18- ) for UTI prophylaxis (dose was reduced today); One of Pt's sons request that Pt be maintained on antibiotic as UTI prophylaxis; according to him, Pt has had multiple episodes of UTI. 2 weeks ago, he was in septic shock due to UTI at [facility]. Dr. Zheng discussed the pros and cons of antibiotic prophylaxis for UTI. - We recommend changing the femoral line to PICC if Pt will need a central line. If not, we recommend its discontinuation Management d/w pt's family at bedside, RN Juan C, and with Dr. Chou. Total critical care time spent: 40 minutes. Consultation Date/Type/Reason Admit Date/Time Aug 17, 2018 at 09:51 Initial Consult Date 08/21/18 Type of Consult Infectious Disease Requesting Provider: SANIA WHITTINGTON MD Date/Time of Note DATE: 08/28/18 TIME: 13:37 24 HR Interval Summary Free Text/Dictation S/p US guided L thoracentesis yesterday with 1300 cc of clear yellow fluid aspirated. Pt was taken off Bipap this AM and placed on NC at 4L; stool for C. diff negative and Flexiseal was placed today per d/w CHART COMPUTER. Subjective hx not possible: pt non-verbal Exam/Review of Systems Exam Vitals Vital Signs Date Temp Pulse Resp B/P (MAP) Pulse Ox O2 O2 Flow FiO2 Time Delivery Rate 08/28/18 102 12:00 08/28/18 18 95/41 (59) 100 Nasal 4.0 09:30 Cannula 08/28/18 30 09:07 08/28/18 97.4 08:00 Intake and Output 08/27/18 08/27/18 08/28/18 1515:00 23:00 07:00 IntakeIntake Total 350 ml 470 ml 520 ml OutputOutput Total 465 ml 1690 ml 290 ml BalanceBalance -115 ml -1220 ml 230 ml Exam Constitutional: well developed, non-verbal, frail Psych: other (demented at baseline) Head: normocephalic, atraumatic, other (bitemporal wasting) Eyes: nl conjunctiva, nl lids, nl sclera ENMT: nl external ears & nose, other (limited exam of OP which is dry; R cheek with petechial rash around NC tubing that is pressed against his cheek) Neck: other (not swollen) Respiratory: diminished breath sounds, other (+R chest tube intact; On O2 at 4L via NC) Cardiovascular: regular rate and rhythm Gastrointestinal: soft, other (+GJT with TF in progress; Flexiseal with liquid brown stool); No distended Genitourinary - Male: other (+Villanueva; R femoral central line c/d/i ) Musculoskeletal: nl extremities to inspection, muscle weakness Extremities: normal pulses Neurological: lethargic, other (eyes open, does not respond to simple questions when spoken to by family) Skin: nl turgor, ecchymosis, other (bilateral heels in heel protective boots; 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); No rash or lesions Results Result Diagram: 08/27/18 0436 08/27/18 0436 Results 24hrs Laboratory Tests Test 08/28/18 07:00 Blood Gas Specimen Source Blood arterial Arterial Blood Date Drawn 08/28/2018 7:14:32 AM Arterial Blood pH (Temp corrected) 7.511 H Arterial Blood pCO2 (Temp correct) 28.6 L Arterial Blood pO2 (Temp corrected) 131.3 H Arterial Blood HCO3 22.4 Arterial Blood Base Excess 0.1 Arterial Blood Oxygen Saturation 98.5 Jarod Test ACCEPTAB Arterial Blood Gas Puncture Site Right Radial Arterial Blood Carboxyhemoglobin 0.1 Arterial Blood Methemoglobin 0.4 Blood Gas A-a O2 Differential 49.0 H Oxyhemoglobin Percent 98.0 Blood Gas Temperature 37.0 Blood Gas Respiration Rate 20.0 Blood Gas Actual Respiration Rate 23 Blood Gas Modality MASK - BIPAP FiO2 30.0 Blood Gas Pressure Support 10 Blood Gas IPAP/EPAP Ratio 15/5 Blood Gas Notified Whom TM Blood Gas Notified Time 08/28/2018 7:35:10 AM Imaging Imaging CXR 08/28/2018: No acute cardiopulmonary disease. Right-sided chest tube in place without evidence of pneumothorax. Medications Medication Current Medications Miscellaneous Information (Pending [facility] Order For Wound Care) This patient tabares... PRN PRN XX WOUND CARE; Start 08/16/18 at 20:00 Acetaminophen (Tylenol Tab) 500 mg Q4H PRN PO MILD PAIN(1-3)OR ELEVATED TEMP Last administered on 08/21/18at 21:07; Admin Dose 500 MG; Start 08/16/18 at 20:00 Ascorbic Acid (Vitamin C) 500 mg BID GTB Last administered on 08/28/18at 08:40; Admin Dose 500 MG; Start 08/16/18 at 21:00 Bicalutamide (Casodex) 50 mg DAILY PO ; Start 08/17/18 at 09:00; Status Hold Fish Oil (Fish Oil) 1,000 mg BID PO Last administered on 08/28/18at 08:40; Admin Dose 1,000 MG; Start 08/18/18 at 14:00 Norepinephrine 250 ml @ 1.875 mls/ hr TITRATE IV Last administered on 08/19/18 11:59; Admin Dose 1.875 MLS/HR; Start 08/19/18 at 11:00 Phenylephrine HCl 40 mg/Dextrose 250 ml @ 37.5 mls/hr TITRATE IV Last administered on 08/22/18 00:09; Admin Dose 26.25 MLS/HR; Start 08/19/18 at 14:00 Methenamine (Hiprex) 1 gm BID GTB Last administered on 08/28/18 08:40; Admin Dose 1 GM; Start 08/20/18 at 21:00 Prenat Multivit/ Bulldogger/Iron/Folic Ac () 1 tab DAILY GTB Last administered on 08/28/18 08:41; Admin Dose 1 TAB; Start 08/21/18 at 09:00 Zinc Sulfate (Zinc Sulfate) 220 mg DAILY GTB Last administered on 08/28/18 08:40; Admin Dose 220 MG; Start 08/21/18 at 09:00 Finasteride (Proscar) 5 mg DAILY GTB Last administered on 08/28/18 08:40; Admin Dose 5 MG; Start 08/20/18 at 10:00 Morphine Sulfate (morphine) 1 mg Q4H PRN IV SEVERE PAIN LEVEL 7-10; Start at 12:00 Pantoprazole (Protonix Iv) 40 mg DAILY@06 IV Last administered on 08/28/18 05:56; Admin Dose 40 MG; Start 08/25/18 at 15:00 Ciprofloxacin (Cipro) 500 mg BID@06,18 JT Last administered on 08/28/18 05:56; Admin Dose 500 MG; Start 08/26/18 at 18:00 Eye Lubricant (Artificial Tears Oph) 1 drop TID BOTH EYES Last administered on 08/28/18 13:31; Admin Dose 1 DROP; Start 08/27/18 at 21:00 Metoprolol Tartrate (Lopressor) 25 mg BID JT Last administered on 08/28/18 08:41; Admin Dose 25 MG; Start 08/27/18 at 21:00 Acetylcysteine (Mucomyst) 4 ml Q6H RESP THERAPY NEB Last administered on 08:13; Admin Dose 4 ML; Start 08/28/18 at 05:00 Levalbuterol (Xopenex Neb) 0.63 mg Q6H RESP THERAPY HHN Last administered on 08/28/18at 08:13; Admin Dose 0.63 MG; Start 08/28/18 at 02:00 SARITHA DANIELLE NP August 28, 2018 13:41
--- NOTE | 2018-08-28 15:05 | CONS ---
Assessment/Plan Assessment/Plan Hospital Course (Demo Recall) I personally examined the patient today and reviewed emr. d/w nursing. care coordinated and directed with thao trejo. Consultation Date/Type/Reason Admit Date/Time Aug 17, 2018 at 09:51 Initial Consult Date 08/23/18 Requesting Provider: SANIA WHITTINGTON MD Date/Time of Note DATE: 08/28/18 TIME: 15:04 Exam/Review of Systems Exam Vitals Vital Signs Date Temp Pulse Resp B/P (MAP) Pulse Ox O2 O2 Flow FiO2 Time Delivery Rate 08/28/18 102 23 98 Nasal 4.0 14:00 Cannula 08/28/18 109/43 13:30 (65) 08/28/18 97.8 12:00 08/28/18 30 09:07 Intake and Output 08/27/18 08/27/18 08/28/18 1515:00 23:00 07:00 IntakeIntake Total 350 ml 470 ml 520 ml OutputOutput Total 465 ml 1690 ml 290 ml BalanceBalance -115 ml -1220 ml 230 ml Results Result Diagram: 08/27/18 0436 08/27/18 0436 Results 24hrs Laboratory Tests Test 08/28/18 07:00 Blood Gas Specimen Source Blood arterial Arterial Blood Date Drawn 08/28/2018 7:14:32 AM Arterial Blood pH (Temp corrected) 7.511 H Arterial Blood pCO2 (Temp correct) 28.6 L Arterial Blood pO2 (Temp corrected) 131.3 H Arterial Blood HCO3 22.4 Arterial Blood Base Excess 0.1 Arterial Blood Oxygen Saturation 98.5 Jarod Test ACCEPTAB Arterial Blood Gas Puncture Site Right Radial Arterial Blood Carboxyhemoglobin 0.1 Arterial Blood Methemoglobin 0.4 Blood Gas A-a O2 Differential 49.0 H Oxyhemoglobin Percent 98.0 Blood Gas Temperature 37.0 Blood Gas Respiration Rate 20.0 Blood Gas Actual Respiration Rate 23 Blood Gas Modality MASK - BIPAP FiO2 30.0 Blood Gas Pressure Support 10 Blood Gas IPAP/EPAP Ratio 15/5 Blood Gas Notified Whom TM Blood Gas Notified Time 08/28/2018 7:35:10 AM Medications Medication Current Medications Miscellaneous Information (Pending [facility] Order For Wound Care) This patient tabares... PRN PRN XX WOUND CARE; Start 08/16/18 at 20:00 Acetaminophen (Tylenol Tab) 500 mg Q4H PRN PO MILD PAIN(1-3)OR ELEVATED TEMP Last administered on 08/21/18 21:07; Admin Dose 500 MG; Start 08/16/18 at 20:00 Ascorbic Acid (Vitamin C) 500 mg BID GTB Last administered on 08/28/18 08:40; Admin Dose 500 MG; Start 08/16/18 at 21:00 Bicalutamide (Casodex) 50 mg DAILY PO ; Start 08/17/18 at 09:00; Status Hold Fish Oil (Fish Oil) 1,000 mg BID PO Last administered on 08/28/18 08:40; Admin Dose 1,000 MG; Start 08/18/18 at 14:00 Norepinephrine 250 ml @ 1.875 mls/ hr TITRATE IV Last administered on 08/19/18 11:59; Admin Dose 1.875 MLS/HR; Start 08/19/18 at 11:00 Phenylephrine HCl 40 mg/Dextrose 250 ml @ 37.5 mls/hr TITRATE IV Last administered on 08/22/18 00:09; Admin Dose 26.25 MLS/HR; Start 08/19/18 at 14:00 Methenamine (Hiprex) 1 gm BID GTB Last administered on 08/28/18 08:40; Admin Dose 1 GM; Start 08/20/18 at 21:00 Prenat Multivit/ [place]/Iron/Folic Ac () 1 tab DAILY GTB Last administered on 08/28/18 08:41; Admin Dose 1 TAB; Start 08/21/18 at 09:00 Zinc Sulfate (Zinc Sulfate) 220 mg DAILY GTB Last administered on 08/28/18 08:40; Admin Dose 220 MG; Start 08/21/18 at 09:00 Finasteride (Proscar) 5 mg DAILY GTB Last administered on 08/28/18 08:40; Admin Dose 5 MG; Start 08/20/18 at 10:00 Morphine Sulfate (morphine) 1 mg Q4H PRN IV SEVERE PAIN LEVEL 7-10; Start 08/21/18 at 12:00 Pantoprazole (Protonix Iv) 40 mg DAILY@06 IV Last administered on 08/28/18 05:56; Admin Dose 40 MG; Start 08/25/18 at 15:00 Ciprofloxacin (Cipro) 500 mg BID@06,18 JT Last administered on 08/28/18 05:56; Admin Dose 500 MG; Start 08/26/18 at 18:00 Eye Lubricant (Artificial Tears Oph) 1 drop TID BOTH EYES Last administered on 08/28/18 13:31; Admin Dose 1 DROP; Start 08/27/18 at 21:00 Metoprolol Tartrate (Lopressor) 25 mg BID JT Last administered on 08/28/18 08:41; Admin Dose 25 MG; Start 08/27/18 at 21:00 Acetylcysteine (Mucomyst) 4 ml Q6H RESP THERAPY NEB Last administered on 08/28/18 13:59; Admin Dose 4 ML; Start 08/28/18 at 05:00 Levalbuterol (Xopenex Neb) 0.63 mg Q6H RESP THERAPY HHN Last administered on 08/28/18 13:59; Admin Dose 0.63 MG; Start 08/28/18 at 02:00 CULLEN FERRARO MD August 28, 2018 15:04
--- NOTE | 2018-08-28 18:32 | CONS ---
Assessment/Plan Assessment/Plan Assessment/Plan (Daily) Assessment/Plan (Daily) 87 yo male with prostate cancer with possible bone mets presents with failure to thrive and malnutrition. S/P PEG 08/[address] Rueda Interval hx: Pt still intubated. Tolerating tube feeds at 30cc with no residuals 1. Dysphagia -GJ tube 2. Failure to thrive. 3. Alzheimer disease. 4. 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 Also metastasis in the lung and also in the liver. Patient's PSA is greater than thousand 5. Hypertension. 6. Acute hypoxemic hypercarbic respiratory failure. -s/p chest tube placement and intubation 7. Encephalopathy 8. Anemia with downward trend -retic 2.2, Iron and percent sat wnl, TIBC low, ferritin high 9. S/P thoracentesis with lymphocytic exudate -pending cytology 10. UTI 11. Encephalopathy, as per the son patient responds to command 12. Pancytopenia secondary to metastatic prostate cancer #13 Patient successfully extubated yesterday 08/25/2018, no he is on a BiPAP PLAN: Supportive ICU care FOB pending Ok to increase TF to 60cc/hr, monitor residuals q 6 hours, check phos in am Monitor electrolytes for refeeding syndrome Continue with erythromycin Abdominal binder Continue with IV hydration until pt is at goal Continue antibiotic for his UTI and possible pneumonia Possible thoracocentesis today ,1300 cc of fluid was removed Possible removal of the chest tube on the right side tomorrow as per the staff Consultation Date/Type/Reason Admit Date/Time Aug 17, 2018 at 09:51 Initial Consult Date 08/21/18 Requesting Provider: SANIA WHITTINGTON MD Date/Time of Note DATE: 08/28/18 TIME: 18:31 24 HR Interval Summary Free Text/Dictation And is on supplemental nasal oxygen Constitutional: improved Exam/Review of Systems Exam Vitals Vital Signs Date Temp Pulse Resp B/P (MAP) Pulse Ox O2 O2 Flow FiO2 Time Delivery Rate 08/28/18 89 24 98/37 (57) 100 17:30 08/28/18 Nasal 5.0 17:00 Cannula 08/28/18 98.1 16:00 08/28/18 30 09:07 Intake and Output 08/27/18 08/27/18 08/28/18 1414:59 22:59 06:59 IntakeIntake Total 410 ml 410 ml 580 ml OutputOutput Total 495 ml 1690 ml 320 ml BalanceBalance -85 ml -1280 ml 260 ml Constitutional: frail Neck: supple, non-tender Respiratory: diminished breath sounds Extremities: calf tenderness Results Result Diagram: 08/27/18 0436 08/27/18 0436 Results 24hrs Laboratory Tests Test 08/28/18 07:00 Blood Gas Specimen Source Blood arterial Arterial Blood Date Drawn 08/28/2018 7:14:32 AM Arterial Blood pH (Temp corrected) 7.511 H Arterial Blood pCO2 (Temp correct) 28.6 L Arterial Blood pO2 (Temp corrected) 131.3 H Arterial Blood HCO3 22.4 Arterial Blood Base Excess 0.1 Arterial Blood Oxygen Saturation 98.5 Jarod Test ACCEPTAB Arterial Blood Gas Puncture Site Right Radial Arterial Blood Carboxyhemoglobin 0.1 Arterial Blood Methemoglobin 0.4 Blood Gas A-a O2 Differential 49.0 H Oxyhemoglobin Percent 98.0 Blood Gas Temperature 37.0 Blood Gas Respiration Rate 20.0 Blood Gas Actual Respiration Rate 23 Blood Gas Modality MASK - BIPAP FiO2 30.0 Blood Gas Pressure Support 10 Blood Gas IPAP/EPAP Ratio 15/5 Blood Gas Notified Whom TM Blood Gas Notified Time 08/28/2018 7:35:10 AM Medications Medication Current Medications Miscellaneous Information ([facility] This patient tabares ... PRN PRN XX WOUND CARE; Start 08/16/18 at 20:00 Acetaminophen (Tylenol Tab) 500 mg Q4H PRN PO MILD PAIN(1-3)OR ELEVATED TEMP Last administered on 08/21/18at 21:07; Admin Dose 500 MG; Start 08/16/18 at 20:00 Ascorbic Acid (Vitamin C) 500 mg BID GTB Last administered on 08/28/18at 08:40; Admin Dose 500 MG; Start 08/16/18 at 21:00 Bicalutamide (Casodex) 50 mg DAILY PO ; Start 08/17/18 at 09:00; Status Hold Fish Oil (Fish Oil) 1,000 mg BID PO Last administered on 08/28/18at 08:40; Admin Dose 1,000 MG; Start 08/18/18 at 14:00 Norepinephrine 250 ml @ 1.875 mls/ hr TITRATE IV Last administered on 08/19/18 11:59; Admin Dose 1.875 MLS/HR; Start 08/19/18 at 11:00 Phenylephrine HCl 40 mg/Dextrose 250 ml @ 37.5 mls/hr TITRATE IV Last administered on 08/22/18 00:09; Admin Dose 26.25 MLS/HR; Start 08/19/18 at 14:00 Methenamine (Hiprex) 1 gm BID GTB Last administered on 08/28/18 08:40; Admin D ose 1 GM; Start 08/20/18 at 21:00 Prenat Multivit/ Medical Research Associate/Iron/Folic Ac () 1 tab DAILY GTB Last administered on 08/28/18 08:41; Admin Dose 1 TAB; Start 08/21/18 at 09:00 Zinc Sulfate (Zinc Sulfate) 220 mg DAILY GTB Last administered on 08/28/18 08:40; Admin Dose 220 MG; Start 08/21/18 at 09:00 Finasteride (Proscar) 5 mg DAILY GTB Last administered on 08/28/18 08:40; Admin Dose 5 MG; Start 08/20/18 at 10:00 Morphine Sulfate (morphine) 1 mg Q4H PRN IV SEVERE PAIN LEVEL 7-10; Start 08/21 at 12:00 Pantoprazole (Protonix Iv) 40 mg DAILY@06 IV Last administered on 08/28/18 05:56; Admin Dose 40 MG; Start 08/25/18 at 15:00 Eye Lubricant (Artificial Tears Oph) 1 drop TID BOTH EYES Last administered on 08/28/18 13:31; Admin Dose 1 DROP; Start 08/27/18 at 21:00 Metoprolol Tartrate (Lopressor) 25 mg BID JT Last administered on 08/28/18 08:41; Admin Dose 25 MG; Start 08/27/18 at 21:00 Acetylcysteine (Mucomyst) 4 ml Q6H RESP THERAPY NEB Last administered on 08/28/18 13:59; Admin Dose 4 ML; Start 08/28/18 at 05:00 Levalbuterol (Xopenex Neb) 0.63 mg Q6H RESP THERAPY HHN Last administered on 08/28/18 13:59; Admin Dose 0.63 MG; Start 08/28/18 at 02:00 Ciprofloxacin (Cipro) 500 mg AM JT ; Start 08/29/18 at 09:00 AILIN RUEDA MD August 28, 2018 18:32
--- NOTE | 2018-08-28 18:57 | PN ---
Date/Time of Note Date/Time of Note DATE: 08/28/18 TIME: 18:49 Assessment/Plan VTE Prophylaxis Risk score (from [facility]0 risk: 13 SCD applied (from [facility]): Yes Pharmacological prophylaxis: NA/contraindicated Pharm contraindication: thrombocytopenia Lines/Catheters IV C[facility]ter Type (from [facility] Central Line Central line still needed: Yes Urinary Cath still in place: Yes Reason Cath still needed: urinary retention Assessment/Plan Hospital Course Patient is currently off BiPAP continues on supplemental oxygen. Assessment/Plan - Acute hypoxemic hypercarbic respiratory failure. Continue to wean off BiPAP. Dr. Chase is following in pulmonology consultation. - Bilateral pleural effusions. Status post bilateral thoracentesis. - Right chest tube - Metastatic prostate cancer. The patient remains on Casodex. Continue to monitor. The patient is not a candidate for aggressive treatment. - Enterobacter cloacae pneumonia and Pseudomonas aeruginosa urinary tract infection. Continue Cipro. - Dysphagia with G-tube. - Pancytopenia, stable. - Sacrococcygeal decubitus. Continue local wound care. - DNR/DNI status Critical care time spent is 30 minutes. Further recommendations based on clinical course. Plan of care discussed with Dr. Malin Result Diagram: 08/27/18 0436 08/27/18 0436 Results 24hrs Laboratory Tests Test 08/28/18 07:00 Blood Gas Specimen Source Blood arterial Arterial Blood Date Drawn 08/28/2018 7:14:32 AM Arterial Blood pH (Temp corrected) 7.511 H Arterial Blood pCO2 (Temp correct) 28.6 L Arterial Blood pO2 (Temp corrected) 131.3 H Arterial Blood HCO3 22.4 Arterial Blood Base Excess 0.1 Arterial Blood Oxygen Saturation 98.5 Jarod Test ACCEPTAB Arterial Blood Gas Puncture Site Right Radial Arterial Blood Carboxyhemoglobin 0.1 Arterial Blood Methemoglobin 0.4 Blood Gas A-a O2 Differential 49.0 H Oxyhemoglobin Percent 98.0 Blood Gas Temperature 37.0 Blood Gas Respiration Rate 20.0 Blood Gas Actual Respiration Rate 23 Blood Gas Modality MASK - BIPAP FiO2 30.0 Blood Gas Pressure Support 10 Blood Gas IPAP/EPAP Ratio 15/5 Blood Gas Notified Whom TM Blood Gas Notified Time 08/28/2018 7:35:10 AM Exam/Review of Systems Exam Vitals Vital Signs Date Temp Pulse Resp B/P (MAP) Pulse Ox O2 O2 Flow FiO2 Time Delivery Rate 08/28/18 98 4.0 18:44 08/28/18 93 22 98/41 (60) 18:30 08/28/18 Nasal 18:00 Cannula 08/28/18 98.1 16:00 08/28/18 30 09:07 Intake and Output 08/27/18 08/27/18 08/28/18 1515:00 23:00 07:00 IntakeIntake Total 350 ml 470 ml 580 ml OutputOutput Total 465 ml 1690 ml 330 ml BalanceBalance -115 ml -1220 ml 250 ml Constitutional: alert, frail Respiratory: diminished breath sounds, other (Right chest tube) Cardiovascular: regular rate and rhythm Gastrointestinal: soft, non-tender, other (G-tube) Genitourinary - Male: other (Villanueva) Extremities: normal pulses Results Results 24hrs Laboratory Tests Test 08/28/18 07:00 Blood Gas Specimen Source Blood arterial Arterial Blood Date Drawn 08/28/2018 7:14:32 AM Arterial Blood pH (Temp corrected) 7.511 H Arterial Blood pCO2 (Temp correct) 28.6 L Arterial Blood pO2 (Temp corrected) 131.3 H Arterial Blood HCO3 22.4 Arterial Blood Base Excess 0.1 Arterial Blood Oxygen Saturation 98.5 Jarod Test ACCEPTAB Arterial Blood Gas Puncture Site Right Radial Arterial Blood Carboxyhemoglobin 0.1 Arterial Blood Methemoglobin 0.4 Blood Gas A-a O2 Differential 49.0 H Oxyhemoglobin Percent 98.0 Blood Gas Temperature 37.0 Blood Gas Respiration Rate 20.0 Blood Gas Actual Respiration Rate 23 Blood Gas Modality MASK - BIPAP FiO2 30.0 Blood Gas Pressure Support 10 Blood Gas IPAP/EPAP Ratio 15/5 Blood Gas Notified Whom TM Blood Gas Notified Time 08/28/2018 7:35:10 AM Medications Medication Current Medications Miscellaneous Information (Pending [facility] Order For Wound Care) This patient tabares... PRN PRN XX WOUND CARE; Start 08/16/18 at 20:00 Acetaminophen (Tylenol Tab) 500 mg Q4H PRN PO MILD PAIN(1-3)OR ELEVATED TEMP Last administered on 08/21/18at 21:07; Admin Dose 500 MG; Start 08/16/18 at 20:00 Ascorbic Acid (Vitamin C) 500 mg BID GTB Last administered on 08/28/18 08:40; Admin Dose 500 MG; Start 08/16/18 at 21:00 Bicalutamide (Casodex) 50 mg DAILY PO ; Start 08/17/18 at 09:00; Status Hold Fish Oil (Fish Oil) 1,000 mg BID PO Last administered on 08/28/18 08:40; Admin Dose 1,000 MG; Start 08/18/18 at 14:00 Norepinephrine 250 ml @ 1.875 mls/ hr TITRATE IV Last administered on 08/19/18 11:59; Admin Dose 1.875 MLS/HR; Start 08/19/18 at 11:00 Phenylephrine HCl 40 mg/Dextrose 250 ml @ 37.5 mls/hr TITRATE IV Last administered on 08/22/18 00:09; Admin Dose 26.25 MLS/HR; Start 08/19/18 at 14:00 Methenamine (Hiprex) 1 gm BID GTB Last administered on 08/28/18 08:40; Admin Dose 1 GM; Start 08/20/18 at 21:00 Prenat Multivit/ [place]/Iron/Folic Ac () 1 tab DAILY GTB Last administered on 08/28/18 08:41; Admin Dose 1 TAB; Start 08/21/18 at 09:00 Zinc Sulfate (Zinc Sulfate) 220 mg DAILY GTB Last administered on 08/28/18 08:40; Admin Dose 220 MG; Start 08/21/18 at 09:00 Finasteride (Proscar) 5 mg DAILY GTB Last administered on 08/28/18 08:40; Admin Dose 5 MG; Start 08/20/18 at 10:00 Morphine Sulfate (morphine) 1 mg Q4H PRN IV SEVERE PAIN LEVEL 7-10; Start 08/21/18 at 12:00 Pantoprazole (Protonix Iv) 40 mg DAILY@06 IV Last administered on 08/28/18 05:56; Admin Dose 40 MG; Start 08/25/18 at 15:00 Eye Lubricant (Artificial Tears Oph) 1 drop TID BOTH EYES Last administered on 08/28/18 13:31; Admin Dose 1 DROP; Start 08/27/18 at 21:00 Metoprolol Tartrate (Lopressor) 25 mg BID JT Last administered on 08/28/18 08:41; Admin Dose 25 MG; Start 08/27/18 at 21:00 Acetylcysteine (Mucomyst) 4 ml Q6H RESP THERAPY NEB Last administered on 08/28/18at 13:59; Admin Dose 4 ML; Start 08/28/18 at 05:00 Levalbuterol (Xopenex Neb) 0.63 mg Q6H RESP THERAPY HHN Last administered on 08/28/18at 13:59; Admin Dose 0.63 MG; Start 08/28/18 at 02:00 Ciprofloxacin (Cipro) 500 mg AM JT ; Start 08/29/18 at 09:00 DIANA BROOKS August 28, 2018 18:57
[2018-08-29] VITALS (45 sets, daily range): BP systolic 97–129; BP diastolic 35–78; PULSE 80–112; RESP 23–33
[2018-08-29] MEDS: ACETYLCYSTEINE 20% 4 ML VIAL NEB SCH ×3 (02:32→20:01)
[2018-08-29] MEDS: LEVALBUTEROL (NEB) 0.63 MG/3 ML AMP HHN SCH ×4 (02:32→20:01)
[2018-08-29] MEDS: ACETAMINOPHEN 500 MG TAB PO PRN (03:09)
[2018-08-29] MEDS: PANTOPRAZOLE 40 MG INJ IV SCH (06:10)
--- NOTE | 2018-08-29 07:57 | CONS ---
Assessment/Plan Assessment/Plan Hospital Course (Demo Recall) 87 yo male with prostate cancer with possible bone mets presents with failure to thrive and malnutrition. S/P PEG 08/[address] Mendez Interval hx: NPO for PleuraX placement today and chest tube removal. Alert but not tracking myself. Daughter at bedside states he does follow commands somet imes. Brown liquid stool with no melena or hematochezia. No signs of GI bleeding per RN. Pos FOB 08/25. C diff negative. RN states he did suction pt yesterday and removed blood clot. 1. Dysphagia -GJ tube 2. Failure to thrive. 3. Alzheimer disease. 4. 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 5. Hypertension. 6. Acute hypoxemic hypercarbic respiratory failure. -s/p chest tube placement and intubation 7. Encephalopathy 8. Anemia with downward trend -retic 2.2, Iron and percent sat wnl, TIBC low, ferritin high, FOB neg08/20. FOB pos 08/25 9. S/P thoracentesis with lymphocytic exudate -pending cytology 10. UTI 11. Encephalopathy 12. Pancytopenia secondary to metastatic prostate cancer PLAN: Supportive ICU care Plan for chest tube removal today and pleuraX cath placement. Monitor HH and for active GI bleeding Pt examined and plan of care discussed with Dr. Mendez Consultation Date/Type/Reason Admit Date/Time Aug 17, 2018 at 09:51 Initial Consult Date Requesting Provider: SANIA WHITTINGTON MD Date/Time of Note DATE: 08/29/18 TIME: 07:49 Exam/Review of Systems Exam Vitals Vital Signs Date Temp Pulse Resp B/P (MAP) Pulse Ox O2 O2 Flow FiO2 Time Delivery Rate 08/29/18 93 26 112/46 100 Nasal 06:00 (68) Cannula 08/29/18 98.3 04:00 08/29/18 4.0 02:33 08/28/18 30 09:07 Intake and Output 08/28/18 08/28/18 08/29/18 1515:00 23:00 07:00 IntakeIntake Total 530 ml 620 ml 410 ml OutputOutput Total 550 ml 330 ml 330 ml BalanceBalance -20 ml 290 ml 80 ml Results Result Diagram: 08/29/18 0530 08/29/18 0530 Results 24hrs Laboratory Tests Test 08/29/18 05:30 08/29/18 07:00 White Blood Count 6.3 Red Blood Count 3.24 L Hemoglobin 9.2 L Hematocrit 28.0 L Mean Corpuscular Volume 86.4 Mean Corpuscular Hemoglobin 28.4 L Mean Corpuscular Hemoglobin Concent 32.9 Red Cell Distribution Width 17.2 H Platelet Count 102 L Mean Platelet Volume 11.9 H Immature Granulocytes % 10.900 H Neutrophils % 73.9 Segmented Neutrophils % (Manual) 40 Band Neutrophils % (Manual) 9 H Lymphocytes % 10.7 L Lymphocytes % (Manual) 14 L Monocytes % 2.7 Eosinophils % 0.5 Basophils % 1.3 Basophils % (Manual) 31 H Metamyelocytes % (manual) 3 H Myelocytes % (Manual) 2 H Blast Cells % (Manual) 1.0 H Nucleated Red Blood Cells % 4 H Immature Granulocytes # 0.690 H Neutrophils # 4.7 Neutrophils # (Manual) 2.6 Band Neutrophils # 0.5 Lymphocytes (Manual) 0.8 Lymphocytes # 0.7 L Monocytes # 0.2 L Eosinophils # 0.0 Basophils # 0.1 Basophils # (Manual) 1.9 H Metamyelocytes # 0.1 H Myelocytes # 0.1 H Nucleated Red Blood Cells # 0.1 H Toxic Granulation 2+ Platelet Estimate DECREASED Giant Platelets 3 H Polychromasia 3+ Anisocytosis 1+ Macrocytosis 1+ Sodium Level 142 Potassium Level 3.1 L Chloride Level 111 H Carbon Dioxide Level 29 Anion Gap 2 L Blood Urea Nitrogen 31 H Creatinine 0.29 L Est Glomerular Filtrat Rate mL/min Glucose Level 108 Calcium Level 8.5 Phosphorus Level 1.7 L Magnesium Level 2.0 Blood Gas Specimen Source Blood arterial Arterial Blood Date Drawn 08/29/2018 7:23:12 AM Arterial Blood pH (Temp corrected) 7.422 Arterial Blood pCO2 (Temp correct) 41.5 Arterial Blood pO2 (Temp corrected) 69.9 L Arterial Blood HCO3 26.4 H Arterial Blood Base Excess 1.8 Arterial Blood Oxygen Saturation 94.0 L Jarod Test ACCEPTAB Arterial Blood Gas Puncture Site Right Radial Arterial Blood Carboxyhemoglobin 0.3 Arterial Blood Methemoglobin 0.3 Blood Gas A-a O2 Differential 95.2 H Oxyhemoglobin Percent 93.4 Blood Gas Temperature 37.0 Blood Gas Modality NASAL CANNULA FiO2 30.0 Blood Gas Notified Whom TM Blood Gas Notified Time 08/29/2018 7:37:57 AM Medications Medication Current Medications Miscellaneous Information (Pending [facility] Order For Wound Care) This patient tabares... PRN PRN XX WOUND CARE; Start 08/16/18 at 20:00 Acetaminophen (Tylenol Tab) 500 mg Q4H PRN PO MILD PAIN(1-3)OR ELEVATED TEMP Last administered on 08/29/18 03:09; Admin Dose 500 MG; Start 08/16/18 at 20:00 Ascorbic Acid (Vitamin C) 500 mg BID GTB Last administered on 08/28/18 21:15; Admin Dose 500 MG; Start 08/16/18 at 21:00 Bicalutamide (Casodex) 50 mg DAILY PO ; Start 08/17/18 at 09:00; Status Hold Fish Oil (Fish Oil) 1,000 mg BID PO Last administered on 08/28/18 21:15; Admin Dose 1,000 MG; Start 08/18/18 at 14:00 Norepinephrine 250 ml @ 1.875 mls/ hr TITRATE IV Last administered on 08/19/18 11:59; Admin Dose 1.875 MLS/HR; Start 08/19/18 at 11:00 Phenylephrine HCl 40 mg/Dextrose 250 ml @ 37.5 mls/hr TITRATE IV Last administered on 08/22/18 00:09; Admin Dose 26.25 MLS/HR; Start 08/19/18 at 14:00 Methenamine (Hiprex) 1 gm BID GTB Last administered on 08/28/18 21:15; Admin Dose 1 GM; Start 08/20/18 at 21:00 Prenat Multivit/ [place]/Iron/Folic Ac () 1 tab DAILY GTB Last administered on 08/28/18 08:41; Admin Dose 1 TAB; Start 08/21/18 at 09:00 Zinc Sulfate (Zinc Sulfate) 220 mg DAILY GTB Last administered on 08/28/18 08:40; Admin Dose 220 MG; Start 08/21/18 at 09:00 Finasteride (Proscar) 5 mg DAILY GTB Last administered on 08/28/18 08:40; Admin Dose 5 MG; Start 08/20/18 at 10:00 Morphine Sulfate (morphine) 1 mg Q4H PRN IV SEVERE PAIN LEVEL 7-10; Start 08/21/18 at 12:00 Pantoprazole (Protonix Iv) 40 mg DAILY@06 IV Last administered on 08/29/18at 06:10; Admin Dose 40 MG; Start 08/25/18 at 15:00 Eye Lubricant (Artificial Tears Oph) 1 drop TID BOTH EYES Last administered on 08/28/18at 21:15; Admin Dose 1 DROP; Start 08/27/18 at 21:00 Metoprolol Tartrate (Lopressor) 25 mg BID JT Last administered on 08/28/18at 21:17; Admin Dose 25 MG; Start 08/27/18 at 21:00 Levalbuterol (Xopenex Neb) 0.63 mg Q6H RESP THERAPY HHN Last administered on 08/29/18at 02:32; Admin Dose 0.63 MG; Start 08/28/18 at 02:00 Ciprofloxacin (Cipro) 500 mg AM JT ; Start 08/29/18 at 09:00 Acetylcysteine (Mucomyst) 4 ml Q4H RESP THERAPY NEB ; Start 08/29/18 at 09:00 ADRIEL DELCID August 29, 2018 07:57
[2018-08-29] MEDS: ZINC SULFATE 220 MG CAP GTB SCH (08:38)
[2018-08-29] MEDS: FISH OIL 1,000 MG CAP PO SCH (08:38)
[2018-08-29] MEDS: ASCORBIC ACID 500 MG TAB GTB SCH ×2 (08:39→21:03)
[2018-08-29] MEDS: METOPROLOL 25 MG TAB JT SCH ×2 (08:39→21:03)
[2018-08-29] MEDS: METHENAMINE 1 GM TAB GTB SCH ×2 (08:40→21:02)
[2018-08-29] MEDS: PRENATAL VITAMIN GTB SCH (08:40)
[2018-08-29] MEDS: FINASTERIDE 5 MG TAB GTB SCH (08:40)
[2018-08-29] MEDS: BALSAM PERU/CASTOR OIL 60 GM TUBE TOP SCH ×2 (08:41→21:03)
[2018-08-29] MEDS: ARTIFICIAL TEARS 15 ML OPH BOTH EYES SCH ×3 (08:41→21:04)
--- NOTE | 2018-08-29 08:50 | CONS ---
Assessment/Plan Assessment/Plan Assessment/Plan (Daily) 1. acute prerenal azotemia 2. Septic shock 2/2 UTI 3. right sided pneumothorax s/p R chest tube placement 4. acute hypoxemic respiratory failure intubated on ventilator 5. Metastatic prostate CA 6. Dysphagia s/p G tube placement 7. UTI with Urine cx growign Pseudomonas Plan : levophed for BP support BUN/Cr 31/0.29, K 3.1- replaced today , - on Ciprofloxacin 500mg PJ Q am ID and pulmonary has been following place Chest tube in place, still drainage output 300cc will follow up Consultation Date/Type/Reason Admit Date/Time Aug 17, 2018 at 09:51 Initial Consult Date 08/21/18 Type of Consult NEPHROLOGY Requesting Provider: SANIA WHITTINGTON MD Date/Time of Note DATE: 08/29/18 TIME: 08:50 Exam/Review of Systems Exam Vitals Vital Signs Date Temp Pulse Resp B/P (MAP) Pulse Ox O2 O2 Flow FiO2 Time Delivery Rate 08/29/18 97 26 100 Nasal 4.0 08:25 Cannula 08/29/18 112/46 06:00 (68) 08/29/18 98.3 04:00 08/28/18 30 09:07 Intake and Output 08/28/18 08/28/18 08/29/18 1414:59 22:59 06:59 IntakeIntake Total 530 ml 620 ml 470 ml OutputOutput Total 530 ml 355 ml 335 ml BalanceBalance 0 ml 265 ml 135 ml Results Result Diagram: 08/29/18 0530 08/29/18 0530 Results 24hrs Laboratory Tests Test 08/29/18 05:30 08/29/18 07:00 08/29/18 07:41 White Blood Count 6.3 Red Blood Count 3.24 L Hemoglobin 9.2 L Hematocrit 28.0 L Mean Corpuscular Volume 86.4 Mean Corpuscular Hemoglobin 28.4 L Mean Corpuscular 32.9 Hemoglobin Concent Red Cell Distribution Width 17.2 H Platelet Count 102 L Mean Platelet Volume 11.9 H Immature Granulocytes % 10.900 H Neutrophils % 73.9 Segmented Neutrophils 40 % (Manual) Band Neutrophils % (Manual) 9 H Lymphocytes % 10.7 L Lymphocytes % (Manual) 14 L Monocytes % 2.7 Eosinophils % 0.5 Basophils % 1.3 Basophils % (Manual) 31 H Metamyelocytes % (manual) 3 H Myelocytes % (Manual) 2 H Blast Cells % (Manual) 1.0 H Nucleated Red Blood Cells % 4 H Immature Granulocytes # 0.690 H Neutrophils # 4.7 Neutrophils # (Manual) 2.6 Band Neutrophils # 0.5 Lymphocytes (Manual) 0.8 Lymphocytes # 0.7 L Monocytes # 0.2 L Eosinophils # 0.0 Basophils # 0.1 Basophils # (Manual) 1.9 H Metamyelocytes # 0.1 H Myelocytes # 0.1 H Nucleated Red Blood Cells # 0.1 H Toxic Granulation 2+ Platelet Estimate DECREASED Giant Platelets 3 H Polychromasia 3+ Anisocytosis 1+ Macrocytosis 1+ Sodium Level 142 Potassium Level 3.1 L Chloride Level 111 H Carbon Dioxide Level 29 Anion Gap 2 L Blood Urea Nitrogen 31 H Creatinine 0.29 L Est Glomerular Filtrat Rate mL/min Glucose Level 108 Calcium Level 8.5 Phosphorus Level 1.7 L Magnesium Level 2.0 Blood Gas Specimen Source Blood arterial Arterial Blood Date Drawn 08/29/2018 7:23:12 AM Arterial Blood pH 7.422 (Temp corrected) Arterial Blood pCO2 41.5 (Temp correct) Arterial Blood pO2 69.9 L (Temp corrected) Arterial Blood HCO3 26.4 H Arterial Blood Base Excess 1.8 Arterial Blood 94.0 L Oxygen Saturation Jarod Test ACCEPTAB Arterial Blood Gas Right Radial Puncture Site Arterial 0.3 Blood Carboxyhemoglobin Arterial Blood Methemoglobin 0.3 Blood Gas A-a O2 Differential 95.2 H Oxyhemoglobin Percent 93.4 Blood Gas Temperature 37.0 Blood Gas Modality NASAL CANNULA FiO2 30.0 Blood Gas Notified Whom TM Blood Gas Notified Time 08/29/2018 7:37:57 AM Prothrombin Time 14.5 Prothrombin Time Ratio 1.1 INR International 1.12 Normalized Ratio Activated Partial Thromboplast 36.3 H Time Medications Medication Current Medications Miscellaneous Information (Pending Santyl Order For Wound Care) This patient tabares... PRN PRN XX WOUND CARE; Start 08/16/18 at 20:00 Acetaminophen (Tylenol Tab) 500 mg Q4H PRN PO MILD PAIN(1-3)OR ELEVATED TEMP Last administered on 08/29/18at 03:09; Admin Dose 500 MG; Start 08/16/18 at 20:00 Ascorbic Acid (Vitamin C) 500 mg BID GTB Last administered on 08/28/18 21:15; Admin Dose 500 MG; Start 08/16/18 at 21:00 Bicalutamide (Casodex) 50 mg DAILY PO ; Start 08/17/18 at 09:00; Status Hold Fish Oil (Fish Oil) 1,000 mg BID PO Last administered on 08/28/18 21:15; Admin Dose 1,000 MG; Start 08/18/18 at 14:00 Norepinephrine 250 ml @ 1.875 mls/ hr TITRATE IV Last administered on 08/19/18 11:59; Admin Dose 1.875 MLS/HR; Start 08/19/18 at 11:00 Phenylephrine HCl 40 mg/Dextrose 250 ml @ 37.5 mls/hr TITRATE IV Last administered on 08/22/18 00:09; Admin Dose 26.25 MLS/HR; Start 08/19/18 at 14:00 Methenamine (Hiprex) 1 gm BID GTB Last administered on 08/28/18 21:15; Admin Dose 1 GM; Start 08/20/18 at 21:00 Prenat Multivit/ [place]/Iron/Folic Ac () 1 tab DAILY GTB Last administered on 08/28/18 08:41; Admin Dose 1 TAB; Start 08/21/18 at 09:00 Zinc Sulfate (Zinc Sulfate) 220 mg DAILY GTB Last administered on 08/28/18 08:40; Admin Dose 220 MG; Start 08/21/18 at 09:00 Finasteride (Proscar) 5 mg DAILY GTB Last administered on 08/28/18 08:40; Admin Dose 5 MG; Start 08/20/18 at 10:00 Morphine Sulfate (morphine) 1 mg Q4H PRN IV SEVERE PAIN LEVEL 7-10; Start 08/21/18 at 12:00 Pantoprazole (Protonix Iv) 40 mg DAILY@06 IV Last administered on 08/29/18 06:10; Admin Dose 40 MG; Start 08/25/18 at 15:00 Eye Lubricant (Artificial Tears Oph) 1 drop TID BOTH EYES Last administered on 08/28/18 21:15; Admin Dose 1 DROP; Start 08/27/18 at 21:00 Metoprolol Tartrate (Lopressor) 25 mg BID JT Last administered on 5/7/19at 21:17; Admin Dose 25 MG; Start 08/27/18 at 21:00 Levalbuterol (Xopenex Neb) 0.63 mg Q6H RESP THERAPY HHN Last administered on 08/29/18at 08:19; Admin Dose 0.63 MG; Start 08/28/18 at 02:00 Ciprofloxacin (Cipro) 500 mg AM JT ; Start 08/29/18 at 09:00 Acetylcysteine (Mucomyst) 4 ml Q4H RESP THERAPY NEB Last administered on 08/29/18at 08:20; Admin Dose 4 ML; Start 08/29/18 at 09:00 CELIA KUMAR MD August 29, 2018 08:50
[2018-08-29] MEDS ORDERED: CIPROFLOXACIN 500 MG TAB JT SCH (09:00)
[2018-08-29] MEDS ORDERED: ACETYLCYSTEINE 20% 4 ML VIAL NEB SCH (09:00)
--- NOTE | 2018-08-29 11:22 | CONS ---
Consult Date/Type/Reason Admit Date/Time Aug 17, 2018 at 09:51 Initial Consult Date 08/17/18 Type of Consult Pulmonary Requesting Provider: SANIA WHITTINGTON MD Date/Time of Note DATE: 08/29/18 TIME: 11:21 Subjective Patient continues nasal cannula O2 eyes open appears comfortable no respiratory distress. Still has significant output from right chest tube and chest x-ray shows worsening left effusion. Objective Vital Signs Date Temp Pulse Resp B/P (MAP) Pulse Ox O2 O2 Flow FiO2 Time Delivery Rate 08/29/18 93 25 112/54 100 Nasal 3.0 11:00 (73) Cannula 08/29/18 97.6 08:00 08/28/18 30 09:07 Intake and Output 08/28/18 08/28/18 08/29/18 1515:00 23:00 07:00 IntakeIntake Total 530 ml 620 ml 410 ml OutputOutput Total 550 ml 330 ml 330 ml BalanceBalance -20 ml 290 ml 80 ml Exam GENERAL: Frail elderly gentleman on nasal cannula oxygen VITAL SIGNS: per chart NECK: Supple. No JVD or lymphadenopathy. CARDIAC EXAM: S1, S2. No added sounds or murmurs. CHEST: Diminished air entry bilaterally ABDOMEN: Soft, nontender. No guarding or rebound. EXTREMITIES: No cyanosis, clubbing edema +1 NEUROLOGIC: Generalized weakness. Vent Setting Ventilator Support Mode: AC Fraction of Inspired Oxygen pe: 40 Positive End Expiratory Pressu: 5.0 Results/Medications Result Diagram: 08/29/18 0530 08/29/18 0530 Results 24 hrs Laboratory Tests Test 08/29/18 05:30 08/29/18 07:00 08/29/18 07:41 White Blood Count 6.3 Red Blood Count 3.24 L Hemoglobin 9.2 L Hematocrit 28.0 L Mean Corpuscular Volume 86.4 Mean Corpuscular Hemoglobin 28.4 L Mean Corpuscular 32.9 Hemoglobin Concent Red Cell Distribution Width 17.2 H Platelet Count 102 L Mean Platelet Volume 11.9 H Immature Granulocytes % 10.900 H Neutrophils % 73.9 Segmented Neutrophils 40 % (Manual) Band Neutrophils % (Manual) 9 H Lymphocytes % 10.7 L Lymphocytes % (Manual) 14 L Monocytes % 2.7 Eosinophils % 0.5 Basophils % 1.3 Basophils % (Manual) 31 H Metamyelocytes % (manual) 3 H Myelocytes % (Manual) 2 H Blast Cells % (Manual) 1.0 H Nucleated Red Blood Cells % 4 H Immature Granulocytes # 0.690 H Neutrophils # 4.7 Neutrophils # (Manual) 2.6 Band Neutrophils # 0.5 Lymphocytes (Manual) 0.8 Lymphocytes # 0.7 L Monocytes # 0.2 L Eosinophils # 0.0 Basophils # 0.1 Basophils # (Manual) 1.9 H Metamyelocytes # 0.1 H Myelocytes # 0.1 H Nucleated Red Blood Cells # 0.1 H Toxic Granulation 2+ Platelet Estimate DECREASED Giant Platelets 3 H Polychromasia 3+ Anisocytosis 1+ Macrocytosis 1+ Sodium Level 142 Potassium Level 3.1 L Chloride Level 111 H Carbon Dioxide Level 29 Anion Gap 2 L Blood Urea Nitrogen 31 H Creatinine 0.29 L Est Glomerular Filtrat Rate mL/min Glucose Level 108 Calcium Level 8.5 Phosphorus Level 1.7 L Magnesium Level 2.0 Blood Gas Specimen Source Blood arterial Arterial Blood Date Drawn 08/29/2018 7:23:12 AM Arterial Blood pH 7.422 (Temp corrected) Arterial Blood pCO2 41.5 (Temp correct) Arterial Blood pO2 69.9 L (Temp corrected) Arterial Blood HCO3 26.4 H Arterial Blood Base Excess 1.8 Arterial Blood 94.0 L Oxygen Saturation Jarod Test ACCEPTAB Arterial Blood Gas Right Radial Puncture Site Arterial 0.3 Blood Carboxyhemoglobin Arterial Blood Methemoglobin 0.3 Blood Gas A-a O2 Differential 95.2 H Oxyhemoglobin Percent 93.4 Blood Gas Temperature 37.0 Blood Gas Modality NASAL CANNULA FiO2 30.0 Blood Gas Notified Whom TM Blood Gas Notified Time 08/29/2018 7:37:57 AM Prothrombin Time 14.5 Prothrombin Time Ratio 1.1 INR International 1.12 Normalized Ratio Activated Partial Thromboplast 36.3 H Time Medications Current Medications Miscellaneous Information (Pending Santyl Order For Wound Care) This patient tabares... PRN PRN XX WOUND CARE; Start 08/16/18 at 20:00 Acetaminophen (Tylenol Tab) 500 mg Q4H PRN PO MILD PAIN(1-3)OR ELEVATED TEMP Last administered on 08/29/18at 03:09; Admin Dose 500 MG; Start 08/16/18 at 20:00 Ascorbic Acid (Vitamin C) 500 mg BID GTB Last administered on 5/8/19at 08:39; Admin Dose 500 MG; Start 08/16/18 at 21:00 Bicalutamide (Casodex) 50 mg DAILY PO ; Start 08/17/18 at 09:00; Status Hold Fish Oil (Fish Oil) 1,000 mg BID PO Last administered on 08/29/18 08:38; Admin Dose 1,000 MG; Start 08/18/18 at 14:00 Norepinephrine 250 ml @ 1.875 mls/ hr TITRATE IV Last administered on 08/19/18 11:59; Admin Dose 1.875 MLS/HR; Start 08/19/18 at 11:00 Phenylephrine HCl 40 mg/Dextrose 250 ml @ 37.5 mls/hr TITRATE IV Last administered on 08/22/18 00:09; Admin Dose 26.25 MLS/HR; Start 08/19/18 at 14:00 Methenamine (Hiprex) 1 gm BID GTB Last administered on 08/29/18 08:40; Admin Dose 1 GM; Start 08/20/18 at 21:00 Prenat Multivit/ [place]/Iron/Folic Ac () 1 tab DAILY GTB Last administered on 08/29/18 08:40; Admin Dose 1 TAB; Start 08/21/18 at 09:00 Zinc Sulfate (Zinc Sulfate) 220 mg DAILY GTB Last administered on 08/29/18 08:38; Admin Dose 220 MG; Start 08/21/18 at 09:00 Finasteride (Proscar) 5 mg DAILY GTB Last administered on 08/29/18 08:40; Admin Dose 5 MG; Start 08/20/18 at 10:00 Morphine Sulfate (morphine) 1 mg Q4H PRN IV SEVERE PAIN LEVEL 7-10; Start 08/21/18 at 12:00 Pantoprazole (Protonix Iv) 40 mg DAILY@06 IV Last administered on 08/29/18 06:10; Admin Dose 40 MG; Start 08/25/18 at 15:00 Eye Lubricant (Artificial Tears Oph) 1 drop TID BOTH EYES Last administered on 08/29/18 08:41; Admin Dose 1 DROP; Start 08/27/18 at 21:00 Metoprolol Tartrate (Lopressor) 25 mg BID JT Last administered on 08/29/18 08:39; Admin Dose 25 MG; Start 08/27/18 at 21:00 Levalbuterol (Xopenex Neb) 0.63 mg Q6H RESP THERAPY HHN Last administered on 08/29/18at 08:19; Admin Dose 0.63 MG; Start 08/28/18 at 02:00 Ciprofloxacin (Cipro) 500 mg AM JT Last administered on 08/29/18at 08:40; Admin Dose 500 MG; Start 08/29/18 at 09:00 Acetylcysteine (Mucomyst) 2 ml Q6H RESP THERAPY NEB ; Start 08/29/18 at 14:00 Assessment/Plan Hospital Course (Demo Recall) IMP: 1. Acute Hypercapnic/Hypoxemic Respiratory Failure 2/2 L mainstem mucus plugging with complete left lung atelectasis s/p intubation. Resulting positive pressure ventilation thereafter likely led to a right-sided pneumothorax with tension physiology--now extubated. Moderate left pleural effusion with progressive hypoxemia, 2. Tension PTX--resolved 3. Complete Left Lung ATX--2/2 mucus plugging, now re-expanded. 4. Intermittent PSVT--resolved 5. Right lung pneumonia--likely aspiration 6. UTI 7. 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 Prostate Cancer 9. Severe Cachexia/deconditioning 10.Pancytopenia 11.GIB 12.DNR/DNI RECS: 1. Strict aspiration precautions; HOB > 30 2. Suctioning/CPT as needed 3. Transition from chest tube to right Pleurx catheter. Mainly left Pleurx catheter if effusion continues to grow. 4. Continue TF's/free H20 5. Avoid all sedatives/narcotics 35 min cc time Overall prognosis extremely poor family are aware. Comfort care if family agreeable. LUIZ RAMOS MD, [facility] August 29, 2018 11:22
--- NOTE | 2018-08-29 12:26 | CONS ---
Assessment/Plan Assessment/Plan Hospital Course (Demo Recall) IMPRESSION: 1. Abnormal electrocardiogram, assess for acute coronary syndrome.-neg trop x 2. NL EF by echo this admit 2. Cardiac arrhythmia at this time, most consistent with sinus arrhythmia.-mild tachycardia, sinus arrythmia. NL TSH- now with increased S tachycardia today-? due to pain/resp distress/anxiety/hypotension 3. Hypotension-now off neosynephrine 4. Dysphagia, post-op status post PEG placement 5. Failure to thrive. 6. History of prostate carcinoma. 7. History of aplastic anemia-currently improved 8. Hypernatremia. 10. Pancytopenia-currently overall improved Hgb 11. Resp failure s/p extubation 12. Pleural effusion s/p thoracentesis c/b PTX with CT now 14. PNA Recc: -ICU -serial ecg's -follow Hgb closely and transfuse as necessary -Continue avodart -Continue abx's and f/u cx data -Follow volume status -Follow HR/BP closely -s/p albumin infusion x 2 -tolerating low dose BB -Follow resp status closely with frequent suctioning -DNR Consultation Date/Type/Reason Admit Date/Time Aug 17, 2018 at 09:51 Initial Consult Date 08/17/18 Type of Consult Cardiology Reason for Consultation abnl ecg Requesting Provider: SANIA WHITTINGTON MD Date/Time of Note DATE: 08/29/18 TIME: 12:24 Exam/Review of Systems Vital Signs Vitals Vital Signs Date Temp Pulse Resp B/P (MAP) Pulse Ox O2 O2 Flow FiO2 Time Delivery Rate 08/29/18 93 25 112/54 100 Nasal 3.0 11:00 (73) Cannula 08/29/18 97.6 08:00 08/28/18 30 09:07 Intake and Output 08/28/18 08/28/18 08/29/18 1515:00 23:00 07:00 IntakeIntake Total 530 ml 620 ml 410 ml OutputOutput Total 550 ml 330 ml 330 ml BalanceBalance -20 ml 290 ml 80 ml Exam Exam Review of Systems: CONSTITUTIONAL: No fevers, chills. PULMONARY: No sob CARDIOVASCULAR: No chest pain/palpitations GASTROINTESTINAL: No nausea/vomiting. GENITOURINARY: No hematuria/dysuria. MUSCULOSKELETAL: No myagias/arthalgias. PSYCHIATRIC: The patient denies depression. NEUROLOGIC: encephalopathic Constitutional: other (encephalopathic) Psych: no complaints Head: normocephalic ENMT: mucosa pink and moist Neck: supple, jvd (9 cm water) Respiratory: diminished breath sounds (at bases/B) Cardiovascular: regular rate and rhythm Gastrointestinal: soft, non-tender Musculoskeletal: muscle tone (normal) Extremities: edema (none) Neurological: confused, lethargic Labs Result Diagram: 08/29/1830 08/29/18 0530 Results 24hrs Laboratory Tests Test 08/29/18 05:30 08/29/18 07:00 08/29/18 07:41 White Blood Count 6.3 Red Blood Count 3.24 L Hemoglobin 9.2 L Hematocrit 28.0 L Mean Corpuscular Volume 86.4 Mean Corpuscular Hemoglobin 28.4 L Mean Corpuscular 32.9 Hemoglobin Concent Red Cell Distribution Width 17.2 H Platelet Count 102 L Mean Platelet Volume 11.9 H Immature Granulocytes % 10.900 H Neutrophils % 73.9 Segmented Neutrophils 40 % (Manual) Band Neutrophils % (Manual) 9 H Lymphocytes % 10.7 L Lymphocytes % (Manual) 14 L Monocytes % 2.7 Eosinophils % 0.5 Basophils % 1.3 Basophils % (Manual) 31 H Metamyelocytes % (manual) 3 H Myelocytes % (Manual) 2 H Blast Cells % (Manual) 1.0 H Nucleated Red Blood Cells % 4 H Immature Granulocytes # 0.690 H Neutrophils # 4.7 Neutrophils # (Manual) 2.6 Band Neutrophils # 0.5 Lymphocytes (Manual) 0.8 Lymphocytes # 0.7 L Monocytes # 0.2 L Eosinophils # 0.0 Basophils # 0.1 Basophils # (Manual) 1.9 H Metamyelocytes # 0.1 H Myelocytes # 0.1 H Nucleated Red Blood Cells # 0.1 H Toxic Granulation 2+ Platelet Estimate DECREASED Giant Platelets 3 H Polychromasia 3+ Anisocytosis 1+ Macrocytosis 1+ Sodium Level 142 Potassium Level 3.1 L Chloride Level 111 H Carbon Dioxide Level 29 Anion Gap 2 L Blood Urea Nitrogen 31 H Creatinine 0.29 L Est Glomerular Filtrat Rate mL/min Glucose Level 108 Calcium Level 8.5 Phosphorus Level 1.7 L Magnesium Level 2.0 Blood Gas Specimen Source Blood arterial Arterial Blood Date Drawn 08/29/2018 7:23:12 AM Arterial Blood pH 7.422 (Temp corrected) Arterial Blood pCO2 41.5 (Temp correct) Arterial Blood pO2 69.9 L (Temp corrected) Arterial Blood HCO3 26.4 H Arterial Blood Base Excess 1.8 Arterial Blood 94.0 L Oxygen Saturation Jarod Test ACCEPTAB Arterial Blood Gas Right Radial Puncture Site Arterial 0.3 Blood Carboxyhemoglobin Arterial Blood Methemoglobin 0.3 Blood Gas A-a O2 Differential 95.2 H Oxyhemoglobin Percent 93.4 Blood Gas Temperature 37.0 Blood Gas Modality NASAL CANNULA FiO2 30.0 Blood Gas Notified Whom TM Blood Gas Notified Time 08/29/2018 7:37:57 AM Prothrombin Time 14.5 Prothrombin Time Ratio 1.1 INR International 1.12 Normalized Ratio Activated Partial Thromboplast 36.3 H Time Medications Medications Current Medications Miscellaneous Information (Pending PulpWorksyl Order For Wound Care) This patient tabares... PRN PRN XX WOUND CARE; Start 08/16/18 at 20:00 Acetaminophen (Tylenol Tab) 500 mg Q4H PRN PO MILD PAIN(1-3)OR ELEVATED TEMP Last administered on 08/29/18 03:09; Admin Dose 500 MG; Start 08/16/18 at 20:00 Ascorbic Acid (Vitamin C) 500 mg BID GTB Last administered on 08/29/18 08:39; Admin Dose 500 MG; Start 08/16/18 at 21:00 Bicalutamide (Casodex) 50 mg DAILY PO ; Start 08/17/18 at 09:00; Status Hold Fish Oil (Fish Oil) 1,000 mg BID PO Last administered on 08/29/18 08:38; Admin Dose 1,000 MG; Start 08/18/18 at 14:00 Norepinephrine 250 ml @ 1.875 mls/ hr TITRATE IV Last administered on 08/19/18 11:59; Admin Dose 1.875 MLS/HR; Start 08/19/18 at 11:00 Phenylephrine HCl 40 mg/Dextrose 250 ml @ 37.5 mls/hr TITRATE IV Last administered on 08/22/18 00:09; Admin Dose 26.25 MLS/HR; Start 08/19/18 at 14:00 Methenamine (Hiprex) 1 gm BID GTB Last administered on 08/29/18 08:40; Admin Dose 1 GM; Start 08/20/18 at 21:00 Prenat Multivit/ Construction Project Assistant/Iron/Folic Ac () 1 tab DAILY GTB Last administered on 08/29/18 08:40; Admin Dose 1 TAB; Start 08/21/18 at 09:00 Zinc Sulfate (Zinc Sulfate) 220 mg DAILY GTB Last administered on 08/29/18 08:38; Admin Dose 220 MG; Start 08/21/18 at 09:00 Finasteride (Proscar) 5 mg DAILY GTB Last administered on 08/29/18 08:40; Admin Dose 5 MG; Start 08/20/18 at 10:00 Morphine Sulfate (morphine) 1 mg Q4H PRN IV SEVERE PAIN LEVEL 7-10; Start 08/21/18 at 12:00 Pantoprazole (Protonix Iv) 40 mg DAILY@06 IV Last administered on 08/29/18 06:10; Admin Dose 40 MG; Start 08/25/18 at 15:00 Eye Lubricant (Artificial Tears Oph) 1 drop TID BOTH EYES Last administered on 08/29/18 12:14; Admin Dose 1 DROP; Start 08/27/18 at 21:00 Metoprolol Tartrate (Lopressor) 25 mg BID JT Last administered on 08/29/18 08:39; Admin Dose 25 MG; Start 08/27/18 at 21:00 Levalbuterol (Xopenex Neb) 0.63 mg Q6H RESP THERAPY HHN Last administered on 08/29/18 08:19; Admin Dose 0.63 MG; Start 08/28/18 at 02:00 Ciprofloxacin (Cipro) 500 mg AM JT Last administered on 08/29/18 08:40; Admin Dose 500 MG; Start 08/29/18 at 09:00 Acetylcysteine (Mucomyst) 2 ml Q6H RESP THERAPY NEB ; Start 08/29/18 at 14:00 LUIS ALBERTO EDWARD August 29, 2018 12:26
--- NOTE | 2018-08-29 12:54 | CONS ---
Assessment/Plan Assessment/Plan Hospital Course (Demo Recall) # sepsis, SIRS, resp - septic shock due to UTI plus SIRS due to possible aspiration, pneumothorax, improved - septic shock due to UTI - SIRS due to possible aspiration pneumonitis - probable aspiration pneumonitis - pneumonia vs. colonization of the airway due to Enterobacter - treated with ce fepime (08/21/2018-08/26/18) - b/l pleural effusion - s/p R sided thoracentesis on 08/17/2018. LDH 499, protein 3.2, WBC 89 with 6.8% neutrophils. Cultures of the fluid are negative; no malignant cells by cytology - s/p L sided thoracentesis on 08/24/2018. LDH 481, protein 2.1, WBC 345 with 31.7% neutrophils - s/p R PTX - s/p placement of R chest tube on 08/19/2018 - acute hypoxic resp failure - s/p intubation on 08/19/2018 - s/p extubation on 08/25/2018 # , heme/onc - UTI due to pseudomonas - treated with cefepime (08/21/2018-08/26/18) - prostate CA, with probable mets to the lungs and liver (based on CT result) - h/o recent chemotherapy for his prostate CA - frequent UTI prior to admission. Pt was on long-term antibiotic for prophylaxis according to Pt's son - pancytopenia, improving # GI, alimentary - transaminitis, probably a combination of liver metastasis and shock liver - moderately distended gallbladder with a moderate amount of sludge on liver SAKINA on 08/22/2018 - liver mets on liver SAKINA on 08/22/2018 - s/p failure to thrive - s/p placement of G-J tube on 08/16/2018 # other conditions - Alzheimer's dementia - acute metabolic encephalopathy Recommendations: - Continue for UTI prophylaxis meds - We recommend changing the femoral line to PICC if Pt will need a central line. If not, we recommend its discontinuation Consultation Date/Type/Reason Admit Date/Time Aug 17, 2018 at 09:51 cct 2.5h Initial Consult Date 08/23/18 Requesting Provider: SANIA WHITTINGTON MD Date/Time of Note DATE: 08/29/18 TIME: 12:52 Exam/Review of Systems Exam Vitals Vital Signs Date Temp Pulse Resp B/P (MAP) Pulse Ox O2 O2 Flow FiO2 Time Delivery Rate 08/29/18 93 25 112/54 100 Nasal 3.0 11:00 (73) Cannula 08/29/18 97.6 08:00 08/28/18 30 09:07 Intake and Output 08/28/18 08/28/18 08/29/18 1515:00 23:00 07:00 IntakeIntake Total 530 ml 620 ml 410 ml OutputOutput Total 550 ml 330 ml 330 ml BalanceBalance -20 ml 290 ml 80 ml Constitutional: non-verbal, frail Eyes: EOMI Respiratory: clear to auscultation, diminished breath sounds Gastrointestinal: soft Results Result Diagram: 08/29/18 0530 08/29/18 0530 Results 24hrs Laboratory Tests Test 08/29/18 05:30 08/29/18 07:00 08/29/18 07:41 White Blood Count 6.3 Red Blood Count 3.24 L Hemoglobin 9.2 L Hematocrit 28.0 L Mean Corpuscular Volume 86.4 Mean Corpuscular Hemoglobin 28.4 L Mean Corpuscular 32.9 Hemoglobin Concent Red Cell Distribution Width 17.2 H Platelet Count 102 L Mean Platelet Volume 11.9 H Immature Granulocytes % 10.900 H Neutrophils % 73.9 Segmented Neutrophils 40 % (Manual) Band Neutrophils % (Manual) 9 H Lymphocytes % 10.7 L Lymphocytes % (Manual) 14 L Monocytes % 2.7 Eosinophils % 0.5 Basophils % 1.3 Basophils % (Manual) 31 H Metamyelocytes % (manual) 3 H Myelocytes % (Manual) 2 H Blast Cells % (Manual) 1.0 H Nucleated Red Blood Cells % 4 H Immature Granulocytes # 0.690 H Neutrophils # 4.7 Neutrophils # (Manual) 2.6 Band Neutrophils # 0.5 Lymphocytes (Manual) 0.8 Lymphocytes # 0.7 L Monocytes # 0.2 L Eosinophils # 0.0 Basophils # 0.1 Basophils # (Manual) 1.9 H Metamyelocytes # 0.1 H Myelocytes # 0.1 H Nucleated Red Blood Cells # 0.1 H Toxic Granulation 2+ Platelet Estimate DECREASED Giant Platelets 3 H Polychromasia 3+ Anisocytosis 1+ Macrocytosis 1+ Sodium Level 142 Potassium Level 3.1 L Chloride Level 111 H Carbon Dioxide Level 29 Anion Gap 2 L Blood Urea Nitrogen 31 H Creatinine 0.29 L Est Glomerular Filtrat Rate mL/min Glucose Level 108 Calcium Level 8.5 Phosphorus Level 1.7 L Magnesium Level 2.0 Blood Gas Specimen Source Blood arterial Arterial Blood Date Drawn 08/29/2018 7:23:12 AM Arterial Blood pH 7.422 (Temp corrected) Arterial Blood pCO2 41.5 (Temp correct) Arterial Blood pO2 69.9 L (Temp corrected) Arterial Blood HCO3 26.4 H Arterial Blood Base Excess 1.8 Arterial Blood 94.0 L Oxygen Saturation Jarod Test ACCEPTAB Arterial Blood Gas Right Radial Puncture Site Arterial 0.3 Blood Carboxyhemoglobin Arterial Blood Methemoglobin 0.3 Blood Gas A-a O2 Differential 95.2 H Oxyhemoglobin Percent 93.4 Blood Gas Temperature 37.0 Blood Gas Modality NASAL CANNULA FiO2 30.0 Blood Gas Notified Whom TM Blood Gas Notified Time 08/29/2018 7:37:57 AM Prothrombin Time 14.5 Prothrombin Time Ratio 1.1 INR International 1.12 Normalized Ratio Activated Partial Thromboplast 36.3 H Time Medications Medication Current Medications Miscellaneous Information (Pending [facility] Order For Wound Care) This patient tabares... PRN PRN XX WOUND CARE; Start 08/16/18 at 20:00 Acetaminophen (Tylenol Tab) 500 mg Q4H PRN PO MILD PAIN(1-3)OR ELEVATED TEMP Last administered on 08/29/18at 03:09; Admin Dose 500 MG; Start 08/16/18 at 20:00 Ascorbic Acid (Vitamin C) 500 mg BID GTB Last administered on 08/29/18 08:39; Admin Dose 500 MG; Start 08/16/18 at 21:00 Bicalutamide (Casodex) 50 mg DAILY PO ; Start 08/17/18 at 09:00; Status Hold Fish Oil (Fish Oil) 1,000 mg BID PO Last administered on 08/29/18 08:38; Admin Dose 1,000 MG; Start 08/18/18 at 14:00 Norepinephrine 250 ml @ 1.875 mls/ hr TITRATE IV Last administered on 08/19/18at 11:59; Admin Dose 1.875 MLS/HR; Start 08/19/18 at 11:00 Phenylephrine HCl 40 mg/Dextrose 250 ml @ 37.5 mls/hr TITRATE IV Last administered on 08/22/18at 00:09; Admin Dose 26.25 MLS/HR; Start 08/19/18 at 14:00 Methenamine (Hiprex) 1 gm BID GTB Last administered on 08/29/18 08:40; Admin Dose 1 GM; Start 08/20/18 at 21:00 Prenat Multivit/ Hangar Attendant/Iron/Folic Ac () 1 tab DAILY GTB Last administered on 08/29/18 08:40; Admin Dose 1 TAB; Start 08/21/18 at 09:00 Zinc Sulfate (Zinc Sulfate) 220 mg DAILY GTB Last administered on 08/29/18 08:38; Admin Dose 220 MG; Start 08/21/18 at 09:00 Finasteride (Proscar) 5 mg DAILY GTB Last administered on 08/29/18 08:40; Admin Dose 5 MG; Start 08/20/18 at 10:00 Morphine Sulfate (morphine) 1 mg Q4H PRN IV SEVERE PAIN LEVEL 7-10; Start 08/21/18 at 12:00 Pantoprazole (Protonix Iv) 40 mg DAILY@06 IV Last administered on 08/29/18 06:10; Admin Dose 40 MG; Start 08/25/18 at 15:00 Eye Lubricant (Artificial Tears Oph) 1 drop TID BOTH EYES Last administered on 08/29/18 12:14; Admin Dose 1 DROP; Start 08/27/18 at 21:00 Metoprolol Tartrate (Lopressor) 25 mg BID JT Last administered on 08/29/18 08:39; Admin Dose 25 MG; Start 08/27/18 at 21:00 Levalbuterol (Xopenex Neb) 0.63 mg Q6H RESP THERAPY HHN Last administered on 08/29/18 08:19; Admin Dose 0.63 MG; Start 08/28/18 at 02:00 Ciprofloxacin (Cipro) 500 mg AM JT Last administered on 08/29/18 08:40; Admin D ose 500 MG; Start 08/29/18 at 09:00 Acetylcysteine (Mucomyst) 2 ml Q6H RESP THERAPY NEB ; Start 08/29/18 at 14:00 CULLEN FERRARO MD August 29, 2018 12:54
--- NOTE | 2018-08-29 13:50 | PN ---
Date/Time of Note Date/Time of Note DATE: 08/29/18 TIME: 13:43 Assessment/Plan VTE [place]axis [place] [facility] [place] risk: 13 [place] [facility] [place] Yes Pharmacological prophylaxis: NA/contraindicated Pharm contraindication: thrombocytopenia Lines/Catheters [facility] Central Line Central line still needed: Yes Urinary Cath still in place: Yes Reason Cath still needed: urinary retention Assessment/Plan Hospital Course Patient continues off BiPAP, on supplemental oxygen via nasal cannula remains frail, 200 cc chest tube output for last 12 hours per RN, pending Pleurx catheters placement. Assessment/Plan - Acute hypoxemic hypercarbic respiratory failure. Continue to wean off BiPAP. Dr. Chase is following in pulmonology consultation. - Bilateral pleural effusions. Status post bilateral thoracentesis. - Right chest tube - Metastatic prostate cancer. The patient remains on Casodex. Continue to monitor. The patient is not a candidate for aggressive treatment. - Enterobacter cloacae pneumonia and Pseudomonas aeruginosa urinary tract infection. Continue Cipro. - Dysphagia with G-tube. - Pancytopenia, stable. - Sacrococcygeal decubitus. Continue local wound care. - DNR/DNI status Critical care time spent is 30 minutes. Further recommendations based on clinical course. Plan of care discussed with Dr. Malin. Result Diagram: 08/29/18 0530 08/29/18 0530 Results 24hrs Laboratory Tests Test 08/29/18 05:30 08/29/18 07:00 08/29/18 07:41 White Blood Count 6.3 Red Blood Count 3.24 L Hemoglobin 9.2 L Hematocrit 28.0 L Mean Corpuscular Volume 86.4 Mean Corpuscular Hemoglobin 28.4 L Mean Corpuscular 32.9 Hemoglobin Concent Red Cell Distribution Width 17.2 H Platelet Count 102 L Mean Platelet Volume 11.9 H Immature Granulocytes % 10.900 H Neutrophils % 73.9 Segmented Neutrophils 40 % (Manual) Band Neutrophils % (Manual) 9 H Lymphocytes % 10.7 L Lymphocytes % (Manual) 14 L Monocytes % 2.7 Eosinophils % 0.5 Basophils % 1.3 Basophils % (Manual) 31 H Metamyelocytes % (manual) 3 H Myelocytes % (Manual) 2 H Blast Cells % (Manual) 1.0 H Nucleated Red Blood Cells % 4 H Immature Granulocytes # 0.690 H Neutrophils # 4.7 Neutrophils # (Manual) 2.6 Band Neutrophils # 0.5 Lymphocytes (Manual) 0.8 Lymphocytes # 0.7 L Monocytes # 0.2 L Eosinophils # 0.0 Basophils # 0.1 Basophils # (Manual) 1.9 H Metamyelocytes # 0.1 H Myelocytes # 0.1 H Nucleated Red Blood Cells # 0.1 H Toxic Granulation 2+ Platelet Estimate DECREASED Giant Platelets 3 H Polychromasia 3+ Anisocytosis 1+ Macrocytosis 1+ Sodium Level 142 Potassium Level 3.1 L Chloride Level 111 H Carbon Dioxide Level 29 Anion Gap 2 L Blood Urea Nitrogen 31 H Creatinine 0.29 L Est Glomerular Filtrat Rate mL/min Glucose Level 108 Calcium Level 8.5 Phosphorus Level 1.7 L Magnesium Level 2.0 Blood Gas Specimen Source Blood arterial Arterial Blood Date Drawn 08/29/2018 7:23:12 AM Arterial Blood pH 7.422 (Temp corrected) Arterial Blood pCO2 41.5 (Temp correct) Arterial Blood pO2 69.9 L (Temp corrected) Arterial Blood HCO3 26.4 H Arterial Blood Base Excess 1.8 Arterial Blood 94.0 L Oxygen Saturation Jarod Test ACCEPTAB Arterial Blood Gas Right Radial Puncture Site Arterial 0.3 Blood Carboxyhemoglobin Arterial Blood Methemoglobin 0.3 Blood Gas A-a O2 Differential 95.2 H Oxyhemoglobin Percent 93.4 Blood Gas Temperature 37.0 Blood Gas Modality NASAL CANNULA FiO2 30.0 Blood Gas Notified Whom TM Blood Gas Notified Time 08/29/2018 7:37:57 AM Prothrombin Time 14.5 Prothrombin Time Ratio 1.1 INR International 1.12 Normalized Ratio Activated Partial Thromboplast 36.3 H Time Exam/Review of Systems Exam Vitals Vital Signs Date Temp Pulse Resp B/P (MAP) Pulse Ox O2 O2 Flow FiO2 Time Delivery Rate 08/29/18 93 25 112/54 100 Nasal 3.0 11:00 (73) Cannula 08/29/18 97.6 08:00 08/28/18 30 09:07 Intake and Output 08/28/18 08/28/18 08/29/18 1515:00 23:00 07:00 IntakeIntake Total 530 ml 620 ml 410 ml OutputOutput Total 550 ml 330 ml 330 ml BalanceBalance -20 ml 290 ml 80 ml Exam Constitutional: alert, frail Respiratory: diminished breath sounds, other (Right chest tube) Cardiovascular: regular rate and rhythm Gastrointestinal: soft, non-tender, other (G-tube) Genitourinary - Male: other ([place]) Extremities: normal pulses Results Results 24hrs Laboratory Tests Test 08/29/18 05:30 08/29/18 07:00 08/29/18 07:41 White Blood Count 6.3 Red Blood Count 3.24 L Hemoglobin 9.2 L Hematocrit 28.0 L Mean Corpuscular Volume 86.4 Mean Corpuscular Hemoglobin 28.4 L Mean Corpuscular 32.9 Hemoglobin Concent Red Cell Distribution Width 17.2 H Platelet Count 102 L Mean Platelet Volume 11.9 H Immature Granulocytes % 10.900 H Neutrophils % 73.9 Segmented Neutrophils 40 % (Manual) Band Neutrophils % (Manual) 9 H Lymphocytes % 10.7 L Lymphocytes % (Manual) 14 L Monocytes % 2.7 Eosinophils % 0.5 Basophils % 1.3 Basophils % (Manual) 31 H Metamyelocytes % (manual) 3 H Myelocytes % (Manual) 2 H Blast Cells % (Manual) 1.0 H Nucleated Red Blood Cells % 4 H Immature Granulocytes # 0.690 H Neutrophils # 4.7 Neutrophils # (Manual) 2.6 Band Neutrophils # 0.5 Lymphocytes (Manual) 0.8 Lymphocytes # 0.7 L Monocytes # 0.2 L Eosinophils # 0.0 Basophils # 0.1 Basophils # (Manual) 1.9 H Metamyelocytes # 0.1 H Myelocytes # 0.1 H Nucleated Red Blood Cells # 0.1 H Toxic Granulation 2+ Platelet Estimate DECREASED Giant Platelets 3 H Polychromasia 3+ Anisocytosis 1+ Macrocytosis 1+ Sodium Level 142 Potassium Level 3.1 L Chloride Level 111 H Carbon Dioxide Level 29 Anion Gap 2 L Blood Urea Nitrogen 31 H Creatinine 0.29 L Est Glomerular Filtrat Rate mL/min Glucose Level 108 Calcium Level 8.5 Phosphorus Level 1.7 L Magnesium Level 2.0 Blood Gas Specimen Source Blood arterial Arterial Blood Date Drawn 08/29/2018 7:23:12 AM Arterial Blood pH 7.422 (Temp corrected) Arterial Blood pCO2 41.5 (Temp correct) Arterial Blood pO2 69.9 L (Temp corrected) Arterial Blood HCO3 26.4 H Arterial Blood Base Excess 1.8 Arterial Blood 94.0 L Oxygen Saturation Jarod Test ACCEPTAB Arterial Blood Gas Right Radial Puncture Site Arterial 0.3 Blood Carboxyhemoglobin Arterial Blood Methemoglobin 0.3 Blood Gas A-a O2 Differential 95.2 H Oxyhemoglobin Percent 93.4 Blood Gas Temperature 37.0 Blood Gas Modality NASAL CANNULA FiO2 30.0 Blood Gas Notified Whom TM Blood Gas Notified Time 08/29/2018 7:37:57 AM Prothrombin Time 14.5 Prothrombin Time Ratio 1.1 INR International 1.12 Normalized Ratio Activated Partial Thromboplast 36.3 H Time Medications Medication Current Medications Miscellaneous Information (Pending Santyl Order For Wound Care) This patient tabares... PRN PRN XX WOUND CARE; Start 08/16/18 at 20:00 Acetaminophen (Tylenol Tab) 500 mg Q4H PRN PO MILD PAIN(1-3)OR ELEVATED TEMP Last administered on 08/29/18 03:09; Admin Dose 500 MG; Start 08/16/18 at 20:00 Ascorbic Acid (Vitamin C) 500 mg BID GTB Last administered on 08/29/18 08:39; Admin Dose 500 MG; Start 08/16/18 at 21:00 Bicalutamide (Casodex) 50 mg DAILY PO ; Start 08/17/18 at 09:00; Status Hold Fish Oil (Fish Oil) 1,000 mg BID PO Last administered on 08/29/18 08:38; Admin Dose 1,000 MG; Start 08/18/18 at 14:00 Norepinephrine 250 ml @ 1.875 mls/ hr TITRATE IV Last administered on 08/19/18 11:59; Admin Dose 1.875 MLS/HR; Start 08/19/18 at 11:00 Phenylephrine HCl 40 mg/Dextrose 250 ml @ 37.5 mls/hr TITRATE IV Last administered on 08/22/18 00:09; Admin Dose 26.25 MLS/HR; Start 08/19/18 at 14:00 Methenamine (Hiprex) 1 gm BID GTB Last administered on 08/29/18 08:40; Admin Dose 1 GM; Start 08/20/18 at 21:00 Prenat Multivit/ Transportation Services Representative/Iron/Folic Ac () 1 tab DAILY GTB Last administered on 08/29/18 08:40; Admin Dose 1 TAB; Start 08/21/18 at 09:00 Zinc Sulfate (Zinc Sulfate) 220 mg DAILY GTB Last administered on 08/29/18 08:38; Admin Dose 220 MG; Start 08/21/18 at 09:00 Finasteride (Proscar) 5 mg DAILY GTB Last administered on 08/29/18 08:40; Admin Dose 5 MG; Start 08/20/18 at 10:00 Morphine Sulfate (morphine) 1 mg Q4H PRN IV SEVERE PAIN LEVEL 7-10; Start 08/21/18 at 12:00 Pantoprazole (Protonix Iv) 40 mg DAILY@06 IV Last administered on 08/29/18 06:10; Admin Dose 40 MG; Start 08/25/18 at 15:00 Eye Lubricant (Artificial Tears Oph) 1 drop TID BOTH EYES Last administered on 08/29/18 12:14; Admin Dose 1 DROP; Start 08/27/18 at 21:00 Metoprolol Tartrate (Lopressor) 25 mg BID JT Last administered on 08/29/18 08 :39; Admin Dose 25 MG; Start 08/27/18 at 21:00 Levalbuterol (Xopenex Neb) 0.63 mg Q6H RESP THERAPY HHN Last administered on 08/29/18 08:19; Admin Dose 0.63 MG; Start 08/28/18 at 02:00 Ciprofloxacin (Cipro) 500 mg AM JT Last administered on 08/29/18 08:40; Admin Dose 500 MG; Start 08/29/18 at 09:00 Acetylcysteine (Mucomyst) 2 ml Q6H RESP THERAPY NEB ; Start 08/29/18 at 14:00 DIANA BROOKS August 29, 2018 13:50
[2018-08-29] MEDS: POTASSIUM CHLORIDE 50 ML IVPB SCH ×2 (15:05→17:31)
[2018-08-29] MEDS ORDERED: LOPERAMIDE HCL 1 MG/5 ML LIQUID (10 ML UD CUP) GTB PRN (17:00)
--- NOTE | 2018-08-29 18:24 | PN ---
Date/Time of Note Date/Time of Note DATE: 08/29/18 TIME: 18:22 Assessment/Plan Lines/Catheters IV Catheter Type (from Nrsg): Central Line Villanueva in Place (from Nrsg): Yes Assessment/Plan Assessment/Plan Respiratory failure Bilateral pleural effusions Chest tube draining about 2 to 300 cc daily Left-sided mild to moderate pleural effusion Coagulopathy corrected mostly I had a long discussion with the patients family SP thoracentesis on the left side SP left pleurex cath Discussed at length with the patient's family and the referring physician Subjective 24 Hr Interval Summary Pain Control: mild Exam/Review of Systems Vital Signs Vitals Vital Signs Date Temp Pulse Resp B/P (MAP) Pulse Ox O2 O2 Flow FiO2 Time Delivery Rate 08/29/18 4.0 16:28 08/29/18 100 16:00 08/29/18 97.5 24 108/47 100 Nasal 16:00 (67) Cannula 08/28/18 30 09:07 Intake and Output 08/28/18 08/28/18 08/29/18 1515:00 23:00 07:00 IntakeIntake Total 530 ml 620 ml 410 ml OutputOutput Total 550 ml 330 ml 560 ml BalanceBalance -20 ml 290 ml -150 ml Exam Eyes: nl conjunctiva, EOMI, nl lids, nl sclera ENMT: nl external ears & nose, nl lips & teeth, nl nasal mucosa & septum, muco sa pink and moist Neck: supple, non-tender Respiratory: clear to auscultation, normal air movement Cardiovascular: regular rate and rhythm, nl pulses Musculoskeletal: nl extremities to inspection, nl gait and stance Results Result Diagram: 08/29/18 0530 08/29/18 0530 MARY CARMEN GREER MD August 29, 2018 18:24
[2018-08-30] VITALS (36 sets, daily range): BP systolic 76–118; BP diastolic 39–87; PULSE 98–137; RESP 23–43
[2018-08-30] MEDS: LEVALBUTEROL (NEB) 0.63 MG/3 ML AMP HHN SCH ×2 (01:54→08:16)
[2018-08-30] MEDS: ACETYLCYSTEINE 20% 4 ML VIAL NEB SCH ×2 (01:54→08:16)
[2018-08-30] MEDS: ACETAMINOPHEN 500 MG TAB PO PRN (03:04)
[2018-08-30] MEDS: PANTOPRAZOLE 40 MG INJ IV SCH (07:31)
[2018-08-30] MEDS: METOPROLOL 25 MG TAB JT SCH (07:54)
--- NOTE | 2018-08-30 09:05 | CONS ---
Assessment/Plan Assessment/Plan Assessment/Plan (Daily) 1. acute prerenal azotemia 2. Septic shock 2/2 UTI 3. right sided pneumothorax s/p R chest tube placement 4. acute hypoxemic respiratory failure intubated on ventilator 5. Metastatic prostate CA 6. Dysphagia s/p G tube placement 7. UTI with Urine cx growign Pseudomonas Plan : levophed for BP support - on Ciprofloxacin 500mg PJ Q am ID and pulmonary has been following place Chest tube in place, still drainage output 300cc will follow up Consultation Date/Type/Reason Admit Date/Time Aug 17, 2018 at 09:51 Initial Consult Date 08/21/18 Type of Consult NEPHROLOGY Requesting Provider: SANIA WHITTINGTON MD Date/Time of Note DATE: 08/30/18 TIME: 09:05 Exam/Review of Systems Exam Vitals Vital Signs Date Temp Pulse Resp B/P (MAP) Pulse Ox O2 O2 Flow FiO2 Time Delivery Rate 08/30/18 117 08:00 08/30/18 97.7 32 111/74 100 BIPAP 08:00 (86) 08/30/18 50 06:27 08/30/18 8.0 00:50 Intake and Output 08/29/18 08/29/18 08/30/18 1515:00 23:00 07:00 IntakeIntake Total 110 ml 820 ml 350 ml OutputOutput Total 360 ml 555 ml 205 ml BalanceBalance -250 ml 265 ml 145 ml Results Result Diagram: 08/30/18 0510 08/30/18 0510 Results 24hrs Laboratory Tests Test 08/30/18 01:05 08/30/18 01:33 08/30/18 05:10 08/30/18 06:00 Blood Gas Blood arterial Blood arterial Specimen Source Arterial Blood 08/30/2018 1:15:32 08/30/2018 6:00:44 Date Drawn AM AM Arterial Blood 7.352 7.297 *L pH (Temp corrected) Arterial Blood 55.8 H 59.7 H pCO2 (Temp correct) Arterial Blood 92.4 H 424.9 H pO2 (Temp corrected) Arterial Blood 30.3 H 28.5 H HCO3 Arterial Blood 3.6 H 1.0 Base Excess Arterial Blood 96.8 99.5 Oxygen Saturatio n Jarod Test ACCEPTAB ACCEPTAB Arterial Blood Left Radial Right Radial Gas Puncture Site Arterial 0.2 0.3 Blood Carboxyhem oglobin Arterial Blood 0.4 0.5 Methemoglobin Blood Gas A-a O2 564.8 H 228.4 H Differential Oxyhemoglobin 96.2 98.7 Percent Blood Gas 37.0 37.0 Temperature Blood Gas 20.0 20.0 Respiration Rate Blood Gas Actual 30 27 Respiration Rate Blood Gas MASK - BIPAP MASK - BIPAP Modality FiO2 100.0 100.0 Blood Gas 10 10 Pressure Support Blood Gas 05/09 05/09 IPAP/EPAP Ratio Blood Gas [facility] Notified Whom Blood Gas 08/30/2018 1:31:15 08/30/2018 6:16:46 Notified Time AM AM Bedside Glucose 96 White Blood 11.9 #H Count Red Blood Count 3.68 L Hemoglobin 10.4 L Hematocrit 32.4 L Mean Corpuscular 88.0 Volume Mean Corpuscular 28.3 L Hemoglobin Mean Corpuscular 32.1 Hemoglobin Glenny nt Red Cell 17.9 H Distribution Width Platelet Count 134 #L Mean Platelet 11.4 H Volume Immature 8.400 H Granulocytes % Neutrophils % Segmented 79 H Neutrophils % (Manual) Band Neutrophils 9 H % (Manual) Lymphocytes % Lymphocytes % 4 L (Manual) Reactive 1 H Lymphocytes % (Manual) Monocytes % Monocytes % 3 (Manual) Eosinophils % Basophils % Basophils % 1 (Manual) Myelocytes % 3 H (Manual) Nucleated Red 1 H Blood Cells % Immature 1.000 H Granulocytes # Neutrophils # Neutrophils # 9.5 H (Manual) Band Neutrophils 1.0 H # Lymphocytes 0.4 L (Manual) Lymphocytes # Reactive 0.1 H Lymphocytes # Monocytes # Monocytes # 0.3 (Manual) Eosinophils # Basophils # Basophils # 0.1 H (Manual) Myelocytes # 0.3 H Nucleated Red Blood Cells # Toxic 3+ Granulation Platelet NORMAL Estimate Polychromasia 3+ Poikilocytosis 1+ Anisocytosis 1+ Ovalocytes 1+ Sodium Level 143 Potassium Level 3.7 Chloride Level 109 Carbon Dioxide 30 Level Anion Gap 4 L Blood Urea 30 H Nitrogen Creatinine 0.31 L Est Glomerular Filtrat Rate mL/min Glucose Level 101 Calcium Level 9.2 Phosphorus Level 2.9 Magnesium Level 2.1 Blood Gas RFCOLEMAN CANALES Critical Value Read Back Medications Medication Current Medications Miscellaneous Information ([facility] This patient tabares... PRN PRN XX WOUND CARE; Start 08/16/18 at 20:00 Acetaminophen (Tylenol Tab) 500 mg Q4H PRN PO MILD PAIN(1-3)OR ELEVATED TEMP Last administered on 08/30/18 03:04; Admin Dose 500 MG; Start 08/16/18 at 20:00 Ascorbic Acid (Vitamin C) 500 mg BID GTB Last administered on 08/29/18 21:03; Admin Dose 500 MG; Start 08/16/18 at 21:00 Bicalutamide (Casodex) 50 mg DAILY PO ; Start 08/17/18 at 09:00; Status Hold Norepinephrine 250 ml @ 1.875 mls/ hr TITRATE IV Last administered on 08/19/18 11:59; Admin Dose 1.875 MLS/HR; Start 08/19/18 at 11:00 Phenylephrine HCl 40 mg/Dextrose 250 ml @ 37.5 mls/hr TITRATE IV Last administered on 08/22/18 00:09; Admin Dose 26.25 MLS/HR; Start 08/19/18 at 14:00 Methenamine (Hiprex) 1 gm BID GTB Last administered on 08/29/18 21:02; Admin Dose 1 GM; Start 08/20/18 at 21:00 Prenat Multivit/ [place]/Iron/Folic Ac () 1 tab DAILY GTB Last administered on 08/29/18 08:40; Admin Dose 1 TAB; Start 08/21/18 at 09:00 Zinc Sulfate (Zinc Sulfate) 220 mg DAILY GTB Last administered on 08/29/18 08:38; Admin Dose 220 MG; Start 08/21/18 at 09:00 Finasteride (Proscar) 5 mg DAILY GTB Last administered on 08/29/18 08:40; Admin Dose 5 MG; Start 08/20/18 at 10:00 Morphine Sulfate (morphine) 1 mg Q4H PRN IV SEVERE PAIN LEVEL 7-10; Start 08/21/18 at 12:00 Pantoprazole (Protonix Iv) 40 mg DAILY@06 IV Last administered on 08/30/18 07:31; Admin Dose 40 MG; Start 08/25/18 at 15:00 Eye Lubricant (Artificial Tears Oph) 1 drop TID BOTH EYES Last administered on 08/29/18 21:04; Admin Dose 1 DROP; Start 08/27/18 at 21:00 Metoprolol Tartrate (Lopressor) 25 mg BID JT Last administered on 08/30/18at 07:54; Admin Dose 25 MG; Start 08/27/18 at 21:00 Levalbuterol (Xopenex Neb) 0.63 mg Q6H RESP THERAPY HHN Last administered on 08/30/18 08:16; Admin Dose 0.63 MG; Start 08/28/18 at 02:00 Ciprofloxacin (Cipro) 500 mg AM JT Last administered on 08/29/18at 08:40; Admin Dose 500 MG; Start 08/29/18 at 09:00 Acetylcysteine (Mucomyst) 2 ml Q6H RESP THERAPY NEB Last administered on 08/30/18 08:16; Admin Dose 2 ML; Start 08/29/18 at 14:00 Loperamide HCl (Imodium 1mg/5ml (10 ml Cup)) 2 mg QID PRN GTB DIARRHEA; Start 08/29/18 at 17:00 CELIA KUMAR MD August 30, 2018 09:05
[2018-08-30] MEDS: PRENATAL VITAMIN GTB SCH (09:50)
[2018-08-30] MEDS: ZINC SULFATE 220 MG CAP GTB SCH (09:50)
[2018-08-30] MEDS: BALSAM PERU/CASTOR OIL 60 GM TUBE TOP SCH ×2 (09:51→21:54)
[2018-08-30] MEDS: ASCORBIC ACID 500 MG TAB GTB SCH ×2 (09:51→21:54)
[2018-08-30] MEDS: METHENAMINE 1 GM TAB GTB SCH (09:51)
[2018-08-30] MEDS: FINASTERIDE 5 MG TAB GTB SCH (09:51)
[2018-08-30] MEDS: ARTIFICIAL TEARS 15 ML OPH BOTH EYES SCH ×3 (10:00→21:54)
[2018-08-30] MEDS ORDERED: METOPROLOL 5 MG INJ IV PRN ×2 (10:00→17:30)
[2018-08-30] MEDS ORDERED: DIGOXIN 500 MCG INJ IV ONE (10:00)
[2018-08-30] MEDS ORDERED: LACTATED RINGER'S 500 ML IV ONE (10:30)
[2018-08-30] MEDS ORDERED: CEFEPIME 2GM/50 ML (PMX) 50 ML IVPB SCH (11:00)
[2018-08-30] MEDS ORDERED: LEVALBUTEROL (NEB) 0.63 MG/3 ML AMP HHN SCH ×2 (11:00→20:00)
[2018-08-30] MEDS ORDERED: ACETYLCYSTEINE 20% 4 ML VIAL NEB SCH ×3 (11:00→20:00)
[2018-08-30] MEDS ORDERED: LORAZEPAM 2 MG INJ IV PRN (11:00)
--- NOTE | 2018-08-30 11:09 | CONS ---
Assessment/Plan Assessment/Plan Hospital Course (Demo Recall) # sepsis, SIRS, resp - septic shock due to UTI plus SIRS due to possible aspiration, pneumothorax, improved - septic shock due to UTI - SIRS due to possible aspiration pneumonitis - probable aspiration pneumonitis - pneumonia vs. colonization of the airway due to Enterobacter - treated with ce fepime (08/21/2018-08/26/18) - b/l pleural effusion - s/p R sided thoracentesis on 08/17/2018. LDH 499, protein 3.2, WBC 89 with 6.8% neutrophils. Cultures of the fluid are negative; no malignant cells by cytology - s/p L sided thoracentesis on 08/24/2018. LDH 481, protein 2.1, WBC 345 with 31.7% neutrophils - s/p R PTX - s/p placement of R chest tube on 08/19/2018 - acute hypoxic resp failure - s/p intubation on 08/19/2018 - s/p extubation on 08/25/2018 # , heme/onc - UTI due to pseudomonas - treated with cefepime (08/21/2018-08/26/18) - prostate CA, with probable mets to the lungs and liver (based on CT result) - h/o recent chemotherapy for his prostate CA - frequent UTI prior to admission. Pt was on long-term antibiotic for prophylaxis according to Pt's son - pancytopenia, improving # GI, alimentary - transaminitis, probably a combination of liver metastasis and shock liver - moderately distended gallbladder with a moderate amount of sludge on liver SAKINA on 08/22/2018 - liver mets on liver SAKINA on 08/22/2018 - s/p failure to thrive - s/p placement of G-J tube on 08/16/2018 # other conditions - Alzheimer's dementia - acute metabolic encephalopathy Recommendations: - Benito culture, procalcitonin, LA - ordered - Start Vancomycin IV - Continue Cefepime IV - CXR in AM - Aspiration precautions - We recommend changing the femoral line to PICC if Pt will need a central line. If not, we recommend its discontinuation - Family discussing for possible comfort measures. Above plan discussed and coordinated with via [employer]. New orders and plan d/w ALLY Rojas. Consultation Date/Type/Reason Admit Date/Time Aug 17, 2018 at 09:51 Initial Consult Date 08/23/18 Requesting Provider: SANIA WHITTINGTON MD Date/Time of Note DATE: 08/30/18 TIME: 11:09 24 HR Interval Summary Free Text/Dictation Pt was placed on Bipap overnight due to increased work of breathing. WBC uptick noted. No fevers. S.Tachycardia with HR 110-120s Detailed Summary Additional Comments Unable to obtain due to patients current clinical condition. Exam/Review of Systems Exam Vitals Vital Signs Date Temp Pulse Resp B/P (MAP) Pulse Ox O2 O2 Flow FiO2 Time Delivery Rate 08/30/18 117 08:00 08/30/18 97.7 32 111/74 100 BIPAP 08:00 (86) 08/30/18 50 06:27 08/30/18 8.0 00:50 Intake and Output 08/29/18 08/29/18 08/30/18 1414:59 22:59 06:59 IntakeIntake Total 50 ml 820 ml 410 ml OutputOutput Total 580 ml 555 ml 245 ml BalanceBalance -530 ml 265 ml 165 ml Constitutional: alert, other (Lethargic) Head: normocephalic, atraumatic Eyes: other (unable to assess due to BIPAP) ENMT: other (unable to assess due to BIPAP); No intubated Respiratory: diminished breath sounds, respirations (30s), other (on BIPAP, tachypneic ); No wheezing Cardiovascular: edema (+1 BUE and BLE), other (S.Tachycardic HR 110-120s); No regular rate and rhythm Gastrointestinal: soft, non-tender, other (gtube site c/d/i); No distended, No firm, No rebound or guarding Genitourinary - Male: other (FC draining yellow urine (small amount urine in FC bag). ) Musculoskeletal: nl extremities to inspection Extremities: No clubbing, No tenderness Neurological: other (limited exam due to Bipap and pt lethargic ) Skin: ecchymosis Additional Comments femoral tripple lumen catheter Results Result Diagram: 08/30/18 0510 08/30/1810 Results 24hrs Laboratory Tests Test 08/30/18 01:05 08/30/18 01:33 08/30/18 05:10 08/30/18 06:00 Blood Gas Blood arterial Blood arterial Specimen Source Arterial Blood 08/30/2018 1:15:32 08/30/2018 6:00:44 Date Drawn AM AM Arterial Blood 7.352 7.297 *L pH (Temp corrected) Arterial Blood 55.8 H 59.7 H pCO2 (Temp correct) Arterial Blood 92.4 H 424.9 H pO2 (Temp corrected) Arterial Blood 30.3 H 28.5 H HCO3 Arterial Blood 3.6 H 1.0 Base Excess Arterial Blood 96.8 99.5 Oxygen Saturatio n Jarod Test ACCEPTAB ACCEPTAB Arterial Blood Left Radial Right Radial Gas Puncture Site Arterial 0.2 0.3 Blood Carboxyhem oglobin Arterial Blood 0.4 0.5 Methemoglobin Blood Gas A-a O2 564.8 H 228.4 H Differential Oxyhemoglobin 96.2 98.7 Percent Blood Gas 37.0 37.0 Temperature Blood Gas 20.0 20.0 Respiration Rate Blood Gas Actual 30 27 Respiration Rate Blood Gas MASK - BIPAP MASK - BIPAP Modality FiO2 100.0 100.0 Blood Gas 10 10 Pressure Support Blood Gas 05/09 05/09 IPAP/EPAP Ratio Blood Gas [facility] Notified Whom Blood Gas 08/30/2018 1:31:15 08/30/2018 6:16:46 Notified Time AM AM Bedside Glucose 96 White Blood 11.9 #H Count Red Blood Count 3.68 L Hemoglobin 10.4 L Hematocrit 32.4 L Mean Corpuscular 88.0 Volume Mean Corpuscular 28.3 L Hemoglobin Mean Corpuscular 32.1 Hemoglobin Glenny nt Red Cell 17.9 H Distribution Width Platelet Count 134 #L Mean Platelet 11.4 H Volume Immature 8.400 H Granulocytes % Neutrophils % Segmented 79 H Neutrophils % (Manual) Band Neutrophils 9 H % (Manual) Lymphocytes % Lymphocytes % 4 L (Manual) Reactive 1 H Lymphocytes % (Manual) Monocytes % Monocytes % 3 (Manual) Eosinophils % Basophils % Basophils % 1 (Manual) Myelocytes % 3 H (Manual) Nucleated Red 1 H Blood Cells % Immature 1.000 H Granulocytes # Neutrophils # Neutrophils # 9.5 H (Manual) Band Neutrophils 1.0 H # Lymphocytes 0.4 L (Manual) Lymphocytes # Reactive 0.1 H Lymphocytes # Monocytes # Monocytes # 0.3 (Manual) Eosinophils # Basophils # Basophils # 0.1 H (Manual) Myelocytes # 0.3 H Nucleated Red Blood Cells # Toxic 3+ Granulation Platelet NORMAL Estimate Polychromasia 3+ Poikilocytosis 1+ Anisocytosis 1+ Ovalocytes 1+ Sodium Level 143 Potassium Level 3.7 Chloride Level 109 Carbon Dioxide 30 Level Anion Gap 4 L Blood Urea 30 H Nitrogen Creatinine 0.31 L Est Glomerular Filtrat Rate mL/min Glucose Level 101 Calcium Level 9.2 Phosphorus Level 2.9 Magnesium Level 2.1 Blood Gas JUNG CANALES Critical Value Read Back Medications Medication Current Medications Miscellaneous Information [facility] This patient tabares... PRN PRN XX WOUND CARE; Start 08/16/18 at 20:00 Acetaminophen (Tylenol Tab) 500 mg Q4H PRN PO MILD PAIN(1-3)OR ELEVATED TEMP Last administered on 08/30/18 03:04; Admin Dose 500 MG; Start 08/16/18 at 20:00 Ascorbic Acid (Vitamin C) 500 mg BID GTB Last administered on 08/30/18 09:51; Admin Dose 500 MG; Start 08/16/18 at 21:00 Bicalutamide (Casodex) 50 mg DAILY PO ; Start 08/17/18 at 09:00; Status Hold Norepinephrine 250 ml @ 1.875 mls/ hr TITRATE IV Last administered on 08/19/18 11:59; Admin Dose 1.875 MLS/HR; Start 08/19/18 at 11:00 Phenylephrine HCl 40 mg/Dextrose 250 ml @ 37.5 mls/hr TITRATE IV Last administered on 08/22/18 00:09; Admin Dose 26.25 MLS/HR; Start 08/19/18 at 14:00 Methenamine (Hiprex) 1 gm BID GTB Last administered on 08/30/18 09:51; Admin Dose 1 GM; Start 08/20/18 at 21:00 Prenat Multivit/ [place]/Iron/Folic Ac () 1 tab DAILY GTB Last administered on 08/30/18 09:50; Admin Dose 1 TAB; Start 08/21/18 at 09:00 Zinc Sulfate (Zinc Sulfate) 220 mg DAILY GTB Last administered on 08/30/18 09:50; Admin Dose 220 MG; Start 08/21/18 at 09:00 Finasteride (Proscar) 5 mg DAILY GTB Last administered on 08/30/18at 09:51; Admin Dose 5 MG; Start 08/20/18 at 10:00 Morphine Sulfate (morphine) 1 mg Q4H PRN IV SEVERE PAIN LEVEL 7-10; Start 08/21/18 at 12:00 Pantoprazole (Protonix Iv) 40 mg DAILY@06 IV Last administered on 08/30/18at 07:3 1; Admin Dose 40 MG; Start 08/25/18 at 15:00 Eye Lubricant (Artificial Tears Oph) 1 drop TID BOTH EYES Last administered on 08/30/18at 10:00; Admin Dose 1 DROP; Start 08/27/18 at 21:00 Metoprolol Tartrate (Lopressor) 25 mg BID JT Last administered on 08/30/18at 07:54; Admin Dose 25 MG; Start 08/27/18 at 21:00 Loperamide HCl (Imodium 1mg/5ml (10 ml Cup)) 2 mg QID PRN GTB DIARRHEA; Start 08/29/18 at 17:00 Acetylcysteine (Mucomyst) 2 ml Q3H RESP THERAPY NEB ; Start 08/30/18 at 11:00 Levalbuterol (Xopenex Neb) 0.63 mg Q3H RESP THERAPY HHN ; Start 08/30/18 at 11:00 Cefepime HCl 50 ml @ 100 mls/hr Q12 IVPB ; Start 08/30/18 at 11:00 Metoprolol Tartrate (Lopressor) 5 mg Q4H PRN IV HR>105 Hr<60; Start 08/30/18 at 10:00 Lactated Ringer's 500 ml @ 500 mls/hr Q1H ONCE IV Last administered on 08/30/18at 10:35; Admin Dose 500 MLS/HR; Start 08/30/18 at 10:30; Stop 08/30/18 at 11:29 Lorazepam (Ativan) 1 mg Q2 PRN IV ANXIETY; Start 08/30/18 at 11:00; Status MELVIN STARR NP August 30, 2018 11:09
--- NOTE | 2018-08-30 11:19 | CONS ---
Consult Date/Type/Reason Admit Date/Time Aug 17, 2018 at 09:51 Initial Consult Date 08/17/18 Type of Consult Pulmonary Requesting Provider: SANIA WHITTINGTON MD Date/Time of Note DATE: 08/30/18 TIME: 11:18 Subjective Increased work of breathing this morning placed on BiPAP with FiO2 80%. Appears less alert. Objective Vital Signs Date Temp Pulse Resp B/P (MAP) Pulse Ox O2 O2 Flow FiO2 Time Delivery Rate 08/30/18 117 08:00 08/30/18 97.7 32 111/74 100 BIPAP 08:00 (86) 08/30/18 50 06:27 08/30/18 8.0 00:50 Intake and Output 08/29/18 08/29/18 08/30/18 1515:00 23:00 07:00 IntakeIntake Total 110 ml 820 ml 350 ml OutputOutput Total 360 ml 555 ml 235 ml BalanceBalance -250 ml 265 ml 115 ml Exam GENERAL: Frail elderly gentleman on bilevel ventilation. VITAL SIGNS: per chart NECK: Supple. No JVD or lymphadenopathy. CARDIAC EXAM: S1, S2. No added sounds or murmurs. CHEST: Diminished air entry bilaterally ABDOMEN: Soft, nontender. No guarding or rebound. EXTREMITIES: No cyanosis, clubbing edema +1 NEUROLOGIC: Generalized weakness. Vent Setting Ventilator Support Mode: AC Fraction of Inspired Oxygen pe: 40 Positive End Expiratory Pressu: 5.0 Results/Medications Result Diagram: 08/30/18 0510 08/30/18 0510 Results 24 hrs Laboratory Tests Test 08/30/18 01:05 08/30/18 01:33 08/30/18 05:10 08/30/18 06:00 Blood Gas Blood arterial Blood arterial Specimen Source Arterial Blood 08/30/2018 1:15:32 08/30/2018 6:00:44 Date Drawn AM AM Arterial Blood 7.352 7.297 *L pH (Temp corrected) Arterial Blood 55.8 H 59.7 H pCO2 (Temp correct) Arterial Blood 92.4 H 424.9 H pO2 (Temp corrected) Arterial Blood 30.3 H 28.5 H HCO3 Arterial Blood 3.6 H 1.0 Base Excess Arterial Blood 96.8 99.5 Oxygen Saturatio n Jarod Test ACCEPTAB ACCEPTAB Arterial Blood Left Radial Right Radial Gas Puncture Site Arterial 0.2 0.3 Blood Carboxyhem oglobin Arterial Blood 0.4 0.5 Methemoglobin Blood Gas A-a O2 564.8 H 228.4 H Differential Oxyhemoglobin 96.2 98.7 Percent Blood Gas 37.0 37.0 Temperature Blood Gas 20.0 20.0 Respiration Rate Blood Gas Actual 30 27 Respiration Rate Blood Gas MASK - BIPAP MASK - BIPAP Modality FiO2 100.0 100.0 Blood Gas 10 10 Pressure Support Blood Gas 05/09 05/09 IPAP/EPAP Ratio Blood Gas [facility] Notified Whom Blood Gas 08/30/2018 1:31:15 08/30/2018 6:16:46 Notified Time AM AM Bedside Glucose 96 White Blood 11.9 #H Count Red Blood Count 3.68 L Hemoglobin 10.4 L Hematocrit 32.4 L Mean Corpuscular 88.0 Volume Mean Corpuscular 28.3 L Hemoglobin Mean Corpuscular 32.1 Hemoglobin Glenny nt Red Cell 17.9 H Distribution Width Platelet Count 134 #L Mean Platelet 11.4 H Volume Immature 8.400 H Granulocytes % Neutrophils % Segmented 79 H Neutrophils % (Manual) Band Neutrophils 9 H % (Manual) Lymphocytes % Lymphocytes % 4 L (Manual) Reactive 1 H Lymphocytes % (Manual) Monocytes % Monocytes % 3 (Manual) Eosinophils % Basophils % Basophils % 1 (Manual) Myelocytes % 3 H (Manual) Nucleated Red 1 H Blood Cells % Immature 1.000 H Granulocytes # Neutrophils # Neutrophils # 9.5 H (Manual) Band Neutrophils 1.0 H # Lymphocytes 0.4 L (Manual) Lymphocytes # Reactive 0.1 H Lymphocytes # Monocytes # Monocytes # 0.3 (Manual) Eosinophils # Basophils # Basophils # 0.1 H (Manual) Myelocytes # 0.3 H Nucleated Red Blood Cells # Toxic 3+ Granulation Platelet NORMAL Estimate Polychromasia 3+ Poikilocytosis 1+ Anisocytosis 1+ Ovalocytes 1+ Sodium Level 143 Potassium Level 3.7 Chloride Level 109 Carbon Dioxide 30 Level Anion Gap 4 L Blood Urea 30 H Nitrogen Creatinine 0.31 L Est Glomerular Filtrat Rate mL/min Glucose Level 101 Calcium Level 9.2 Phosphorus Level 2.9 Magnesium Level 2.1 Blood Gas RFIGUJOSE CANALES Critical Value Read Back Medications Current Medications Miscellaneous Information (Pending [facility] Order For Wound Care) This patient tabares... PRN PRN XX WOUND CARE; Start 08/16/18 at 20:00 Acetaminophen (Tylenol Tab) 500 mg Q4H PRN PO MILD PAIN(1-3)OR ELEVATED TEMP Last administered on 08/30/18 03:04; Admin Dose 500 MG; Start 08/16/18 at 20:00 Ascorbic Acid (Vitamin C) 500 mg BID GTB Last administered on 08/30/18 09:51; Admin Dose 500 MG; Start 08/16/18 at 21:00 Bicalutamide (Casodex) 50 mg DAILY PO ; Start 08/17/18 at 09:00; Status Hold Norepinephrine 250 ml @ 1.875 mls/ hr TITRATE IV Last administered on 08/19/18 11:59; Admin Dose 1.875 MLS/HR; Start 08/19/18 at 11:00 Phenylephrine HCl 40 mg/Dextrose 250 ml @ 37.5 mls/hr TITRATE IV Last admi nistered on 08/22/18 00:09; Admin Dose 26.25 MLS/HR; Start 08/19/18 at 14:00 Methenamine (Hiprex) 1 gm BID GTB Last administered on 08/30/18 09:51; Admin Dose 1 GM; Start 08/20/18 at 21:00 Prenat Multivit/ [employer]/Iron/Folic Ac () 1 tab DAILY GTB Last administered on 08/30/18 09:50; Admin Dose 1 TAB; Start 08/21/18 at 09:00 Zinc Sulfate (Zinc Sulfate) 220 mg DAILY GTB Last administered on 08/30/18 09:50; Admin Dose 220 MG; Start 08/21/18 at 09:00 Finasteride (Proscar) 5 mg DAILY GTB Last administered on 08/30/18 09:51; Admin Dose 5 MG; Start 08/20/18 at 10:00 Morphine Sulfate (morphine) 1 mg Q4H PRN IV SEVERE PAIN LEVEL 7-10; Start 08/21/18 at 12:00 Pantoprazole (Protonix Iv) 40 mg DAILY@06 IV Last administered on 08/30/18 07:31; Admin Dose 40 MG; Start 08/25/18 at 15:00 Eye Lubricant (Artificial Tears Oph) 1 drop TID BOTH EYES Last administered on 08/30/18 10:00; Admin Dose 1 DROP; Start 08/27/18 at 21:00 Metoprolol Tartrate (Lopressor) 25 mg BID JT Last administered on 08/30/18at 07:54; Admin Dose 25 MG; Start 08/27/18 at 21:00 Loperamide HCl (Imodium 1mg/5ml (10 ml Cup)) 2 mg QID PRN GTB DIARRHEA; Start 08/29/18 at 17:00 Acetylcysteine (Mucomyst) 2 ml Q3H RESP THERAPY NEB Last administered on 08/30/18at 11:15; Admin Dose 2 ML; Start 08/30/18 at 11:00 Levalbuterol (Xopenex Neb) 0.63 mg Q3H RESP THERAPY HHN Last administered on 08/30/18at 11:15; Admin Dose 0.63 MG; Start 08/30/18 at 11:00 Cefepime HCl 50 ml @ 100 mls/hr Q12 IVPB ; Start 08/30/18 at 11:00 Metoprolol Tartrate (Lopressor) 5 mg Q4H PRN IV HR>105 Hr<60; Start 08/30/18 at 10:00 Lactated Ringer's 500 ml @ 500 mls/hr Q1H ONCE IV Last administered on 08/30/18at 10:35; Admin Dose 500 MLS/HR; Start 08/30/18 at 10:30; Stop 08/30/18 at 11:29 Lorazepam (Ativan) 1 mg Q2 PRN IV ANXIETY; Start 08/30/18 at 11:00; Status UNV Assessment/Plan Hospital Course (Demo Recall) IMP: 1. Acute Hypercapnic/Hypoxemic Respiratory Failure 2/2 L mainstem mucus plugging with complete left lung atelectasis s/p intubation. Resulting positive pressure ventilation thereafter likely led to a right-sided pneumothorax with tension physiology--now extubated. Moderate left pleural effusion with progressive hypoxemia, 2. Tension PTX--resolved 3. Complete Left Lung ATX--2/2 mucus plugging, now re-expanded. 4. Intermittent PSVT--resolved 5. Right lung pneumonia--likely aspiration 6. UTI 7. 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 Prostate Cancer 9. Severe Cachexia/deconditioning 10.Pancytopenia 11.GIB 12.DNR/DNI RECS: 1. Strict aspiration precautions; HOB > 30 2. Suctioning/CPT as needed Long discussion with patient's at bedside with family members present. Discussed deterioration in condition and Need to transition to comfort care. Patient's in agreement. Will start Ativan initially as needed than consider IV drip. Patient's declined IV morphine. Critical care time 40 minutes. LUIZ RAMOS MD, [facility] August 30, 2018 11:19
[2018-08-30] MEDS ORDERED: VANCOMYCIN IV PER PHARMACY XX SCH (11:30)
--- NOTE | 2018-08-30 12:31 | PN ---
Date/Time of Note Date/Time of Note DATE: 08/30/18 TIME: 12:27 Assessment/Plan VTE Prophylaxis Risk score (from Ns)>0 risk: 12 SCD applied (from [facility] [place]): Yes Pharmacological prophylaxis: NA/contraindicated Pharm contraindication: thrombocytopenia Lines/Catheters IV Catheter Type (from [facility]): Central Line Central line still needed: Yes Urinary Cath still in place: Yes Reason Cath still needed: urinary retention Assessment/Plan Hospital Course Patient is currently on BiPAP, lethargic, slightly increased leukocytosis, co ntinues to have right chest tube, G-tube feeding. Patient with decreased urinary output, getting LR bolus. Plan for Pleurx catheter placement on Monday. Patient is currently on vancomycin and cefepime, will insert PICC line and DC femoral triple-lumen catheter per ID recommendations if family agrees. Assessment/Plan - Acute hypoxemic hypercarbic respiratory failure. Continue to wean off BiPAP. Dr. Chase is following in pulmonology consultation. - Bilateral pleural effusions. Status post bilateral thoracentesis. - Right chest tube - Metastatic prostate cancer. The patient remains on Casodex. Continue to monitor. The patient is not a candidate for aggressive treatment. - Enterobacter cloacae pneumonia and Pseudomonas aeruginosa urinary tract infection. Continue antibiotics per ID. Dr. Chou is following in infection disease consultation. - Dysphagia with G-tube. - Pancytopenia, stable. - Sacrococcygeal decubitus. Continue local wound care. - DNR/DNI status - Poor prognosis Critical care time spent is 30 minutes. Further recommendations based on clinical course. Plan of care discussed with Dr. Malin. Result Diagram: 08/30/18 0510 08/30/18 0510 Results 24hrs Laboratory Tests Test 08/30/18 01:05 08/30/18 01:33 08/30/18 05:10 08/30/18 06:00 Blood Gas Blood arterial Blood arterial Specimen Source Arterial Blood 08/30/2018 1:15:32 08/30/2018 6:00:44 Date Drawn AM AM Arterial Blood 7.352 7.297 *L pH (Temp corrected) Arterial Blood 55.8 H 59.7 H pCO2 (Temp correct) Arterial Blood 92.4 H 424.9 H pO2 (Temp corrected) Arterial Blood 30.3 H 28.5 H HCO3 Arterial Blood 3.6 H 1.0 Base Excess Arterial Blood 96.8 99.5 Oxygen Saturatio n Jarod Test ACCEPTAB ACCEPTAB Arterial Blood Left Radial Right Radial Gas Puncture Site Arterial 0.2 0.3 Blood Carboxyhem oglobin Arterial Blood 0.4 0.5 Methemoglobin Blood Gas A-a O2 564.8 H 228.4 H Differential Oxyhemoglobin 96.2 98.7 Percent Blood Gas 37.0 37.0 Temperature Blood Gas 20.0 20.0 Respiration Rate Blood Gas Actual 30 27 Respiration Rate Blood Gas MASK - BIPAP MASK - BIPAP Modality FiO2 100.0 100.0 Blood Gas 10 10 Pressure Support Blood Gas 05/09 05/09 IPAP/EPAP Ratio Blood Gas [facility] Notified Whom Blood Gas 08/30/2018 1:31:15 08/30/2018 6:16:46 Notified Time AM AM Bedside Glucose 96 White Blood 11.9 #H Count Red Blood Count 3.68 L Hemoglobin 10.4 L Hematocrit 32.4 L Mean Corpuscular 88.0 Volume Mean Corpuscular 28.3 L Hemoglobin Mean Corpuscular 32.1 Hemoglobin Glenny nt Red Cell 17.9 H Distribution Width Platelet Count 134 #L Mean Platelet 11.4 H Volume Immature 8.400 H Granulocytes % Neutrophils % Segmented 79 H Neutrophils % (Manual) Band Neutrophils 9 H % (Manual) Lymphocytes % Lymphocytes % 4 L (Manual) Reactive 1 H Lymphocytes % (Manual) Monocytes % Monocytes % 3 (Manual) Eosinophils % Basophils % Basophils % 1 (Manual) Myelocytes % 3 H (Manual) Nucleated Red 1 H Blood Cells % Immature 1.000 H Granulocytes # Neutrophils # Neutrophils # 9.5 H (Manual) Band Neutrophils 1.0 H # Lymphocytes 0.4 L (Manual) Lymphocytes # Reactive 0.1 H Lymphocytes # Monocytes # Monocytes # 0.3 (Manual) Eosinophils # Basophils # Basophils # 0.1 H (Manual) Myelocytes # 0.3 H Nucleated Red Blood Cells # Toxic 3+ Granulation Platelet NORMAL Estimate Polychromasia 3+ Poikilocytosis 1+ Anisocytosis 1+ Ovalocytes 1+ Sodium Level 143 Potassium Level 3.7 Chloride Level 109 Carbon Dioxide 30 Level Anion Gap 4 L Blood Urea 30 H Nitrogen Creatinine 0.31 L Est Glomerular Filtrat Rate mL/min Glucose Level 101 Calcium Level 9.2 Phosphorus Level 2.9 Magnesium Level 2.1 Blood Gas RFIGUEROA RN Critical Value Read Back Exam/Review of Systems Exam Vitals Vital Signs Date Temp Pulse Resp B/P (MAP) Pulse Ox O2 O2 Flow FiO2 Time Delivery Rate 08/30/18 117 08:00 08/30/18 97.7 32 111/74 100 BIPAP 08:00 (86) 08/30/18 50 06:27 08/30/18 8.0 00:50 Intake and Output 08/29/18 08/29/18 08/30/18 1515:00 23:00 07:00 IntakeIntake Total 110 ml 820 ml 350 ml OutputOutput Total 360 ml 555 ml 235 ml BalanceBalance -250 ml 265 ml 115 ml Exam Constitutional: alert, frail Respiratory: diminished breath sounds, other (Right chest tube) Cardiovascular: regular rate and rhythm Gastrointestinal: soft, non-tender, other (G-tube) Genitourinary - Male: other (Villanueva) Extremities: normal pulses Results Results 24hrs Laboratory Tests Test 08/30/18 01:05 08/30/18 01:33 08/30/18 05:10 08/30/18 06:00 Blood Gas Blood arterial Blood arterial Specimen Source Arterial Blood 08/30/2018 1:15:32 08/30/2018 6:00:44 Date Drawn AM AM Arterial Blood 7.352 7.297 *L pH (Temp corrected) Arterial Blood 55.8 H 59.7 H pCO2 (Temp correct) Arterial Blood 92.4 H 424.9 H pO2 (Temp corrected) Arterial Blood 30.3 H 28.5 H HCO3 Arterial Blood 3.6 H 1.0 Base Excess Arterial Blood 96.8 99.5 Oxygen Saturatio n Jarod Test ACCEPTAB ACCEPTAB Arterial Blood Left Radial Right Radial Gas Puncture Site Arterial 0.2 0.3 Blood Carboxyhem oglobin Arterial Blood 0.4 0.5 Methemoglobin Blood Gas A-a O2 564.8 H 228.4 H Differential Oxyhemoglobin 96.2 98.7 Percent Blood Gas 37.0 37.0 Temperature Blood Gas 20.0 20.0 Respiration Rate Blood Gas Actual 30 27 Respiration Rate Blood Gas MASK - BIPAP MASK - BIPAP Modality FiO2 100.0 100.0 Blood Gas 10 10 Pressure Support Blood Gas 05/09 05/09 IPAP/EPAP Ratio Blood Gas ILAN TALAVERA Notified Whom Blood Gas 08/30/2018 1:31:15 08/30/2018 6:16:46 Notified Time AM AM Bedside Glucose 96 White Blood 11.9 #H Count Red Blood Count 3.68 L Hemoglobin 10.4 L Hematocrit 32.4 L Mean Corpuscular 88.0 Volume Mean Corpuscular 28.3 L Hemoglobin Mean Corpuscular 32.1 Hemoglobin Glenny nt Red Cell 17.9 H Distribution Width Platelet Count 134 #L Mean Platelet 11.4 H Volume Immature 8.400 H Granulocytes % Neutrophils % Segmented 79 H Neutrophils % (Manual) Band Neutrophils 9 H % (Manual) Lymphocytes % Lymphocytes % 4 L (Manual) Reactive 1 H Lymphocytes % (Manual) Monocytes % Monocytes % 3 (Manual) Eosinophils % Basophils % Basophils % 1 (Manual) Myelocytes % 3 H (Manual) Nucleated Red 1 H Blood Cells % Immature 1.000 H Granulocytes # Neutrophils # Neutrophils # 9.5 H (Manual) Band Neutrophils 1.0 H # Lymphocytes 0.4 L (Manual) Lymphocytes # Reactive 0.1 H Lymphocytes # Monocytes # Monocytes # 0.3 (Manual) Eosinophils # Basophils # Basophils # 0.1 H (Manual) Myelocytes # 0.3 H Nucleated Red Blood Cells # Toxic 3+ Granulation Platelet NORMAL Estimate Polychromasia 3+ Poikilocytosis 1+ Anisocytosis 1+ Ovalocytes 1+ Sodium Level 143 Potassium Level 3.7 Chloride Level 109 Carbon Dioxide 30 Level Anion Gap 4 L Blood Urea 30 H Nitrogen Creatinine 0.31 L Est Glomerular Filtrat Rate mL/min Glucose Level 101 Calcium Level 9.2 Phosphorus Level 2.9 Magnesium Level 2.1 Blood Gas JUNG CANALES Critical Value Read Back Medications Medication Current Medications Miscellaneous Information ([facility] This patient tabares... PRN PRN XX WOUND CARE; Start 08/16/18 at 20:00 Acetaminophen (Tylenol Tab) 500 mg Q4H PRN PO MILD PAIN(1-3)OR ELEVATED TEMP Last administered on 08/30/18at 03:04; Admin Dose 500 MG; Start 08/16/18 at 20:00 Ascorbic Acid (Vitamin C) 500 mg BID GTB Last administered on 08/30/18at 09:51; Admin Dose 500 MG; Start 08/16/18 at 21:00 Bicalutamide (Casodex) 50 mg DAILY PO ; Start 08/17/18 at 09:00; Status Hold Norepinephrine 250 ml @ 1.875 mls/ hr TITRATE IV Last administered on 08/19/18 11:59; Admin Dose 1.875 MLS/HR; Start 08/19/18 at 11:00 Phenylephrine HCl 40 mg/Dextrose 250 ml @ 37.5 mls/hr TITRATE IV Last administered on 08/22/18 00:09; Admin Dose 26.25 MLS/HR; Start 08/19/18 at 14:00 Methenamine (Hiprex) 1 gm BID GTB Last administered on 08/30/18 09:51; Admin D ose 1 GM; Start 08/20/18 at 21:00 Prenat Multivit/ Toys Inspector/Iron/Folic Ac () 1 tab DAILY GTB Last administered on 08/30/18 09:50; Admin Dose 1 TAB; Start 08/21/18 at 09:00 Zinc Sulfate (Zinc Sulfate) 220 mg DAILY GTB Last administered on 08/30/18 09:50; Admin Dose 220 MG; Start 08/21/18 at 09:00 Finasteride (Proscar) 5 mg DAILY GTB Last administered on 08/30/18 09:51; Admin Dose 5 MG; Start 08/20/18 at 10:00 Morphine Sulfate (morphine) 1 mg Q4H PRN IV SEVERE PAIN LEVEL 7-10; Start 08/21 at 12:00 Eye Lubricant (Artificial Tears Oph) 1 drop TID BOTH EYES Last administered on 08/30/18 10:00; Admin Dose 1 DROP; Start 08/27/18 at 21:00 Metoprolol Tartrate (Lopressor) 25 mg BID JT Last administered on 08/30/18 07:54; Admin Dose 25 MG; Start 08/27/18 at 21:00 Loperamide HCl (Imodium 1mg/5ml (10 ml Cup)) 2 mg QID PRN GTB DIARRHEA; Start 08/29/18 at 17:00 Acetylcysteine (Mucomyst) 2 ml Q3H RESP THERAPY NEB Last administered on 08/30/18 11:15; Admin Dose 2 ML; Start 08/30/18 at 11:00 Levalbuterol (Xopenex Neb) 0.63 mg Q3H RESP THERAPY HHN Last administered on 5/9/19at 11:15; Admin Dose 0.63 MG; Start 08/30/18 at 11:00 Cefepime HCl 50 ml @ 100 mls/hr Q12 IVPB Last administered on 08/30/18at 11:36; Admin Dose 100 MLS/HR; Start 08/30/18 at 11:00 Metoprolol Tartrate (Lopressor) 5 mg Q4H PRN IV HR>105 Hr<60; Start 08/30/18 at 10:00 Lorazepam (Ativan) 1 mg Q2H PRN IV ANXIETY Last administered on 08/30/18at 11:32; Admin Dose 1 MG; Start 08/30/18 at 11:00 Vancomycin HCl (Vanco Iv Per Pharmacy) 1 ea PER PROTOCOL XX ; Start 08/30/18 at 11:30; Status UNV Lansoprazole (Prevacid) 30 mg DAILY@06 GTB ; Start 08/31/18 at 06:00 DIANA BROOKS August 30, 2018 12:31
[2018-08-30] MEDS ORDERED: LORAZEPAM 2 MG INJ IV ONE ×2 (13:00→13:30)
--- NOTE | 2018-08-30 13:09 | CONS ---
Assessment/Plan Assessment/Plan Hospital Course (Demo Recall) 87 yo male with prostate cancer with possible bone mets presents with failure to thrive and malnutrition. S/P PEG 08/[address] Mendez Interval hx: Unable to do procedure yesterday. Family discussing comfort care. HH stable. WBC slightly elevated. 1. Dysphagia -GJ tube 2. Failure to thrive. 3. Alzheimer disease. 4. 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 5. Hypertension. 6. Acute hypoxemic hypercarbic respiratory failure. -s/p chest tube placement and intubation 7. Encephalopathy 8. Anemia with downward trend -retic 2.2, Iron and percent sat wnl, TIBC low, ferritin high, FOB neg08/20. FOB pos 08/25 9. S/P thoracentesis with lymphocytic exudate -pending cytology 10. UTI 11. Encephalopathy 12. Pancytopenia secondary to metastatic prostate cancer PLAN: Supportive ICU care Monitor HH and for active GI bleeding Family discussing comfort measures. Pt examined and plan of care discussed with Dr. Mendez Consultation Date/Type/Reason Admit Date/Time Aug 17, 2018 at 09:51 Initial Consult Date Requesting Provider: SANIA WHITTINGTON MD Date/Time of Note DATE: 08/30/18 TIME: 13:07 Exam/Review of Systems Exam Vitals Vital Signs Date Temp Pulse Resp B/P (MAP) Pulse Ox O2 O2 Flow FiO2 Time Delivery Rate 08/30/18 114 12:00 08/30/18 97.7 32 111/74 100 BIPAP 08:00 (86) 08/30/18 50 06:27 08/30/18 8.0 00:50 Intake and Output 08/29/18 08/29/18 08/30/18 1515:00 23:00 07:00 IntakeIntake Total 110 ml 820 ml 350 ml OutputOutput Total 360 ml 555 ml 235 ml BalanceBalance -250 ml 265 ml 115 ml Respiratory: diminished breath sounds Cardiovascular: regular rate and rhythm Gastrointestinal: soft, non-tender Results Result Diagram: 08/30/18 0510 08/30/18 0510 Results 24hrs Laboratory Tests Test 08/30/18 01:05 08/30/18 01:33 08/30/18 05:10 08/30/18 06:00 Blood Gas Blood arterial Blood arterial Specimen Source Arterial Blood 08/30/2018 1:15:32 08/30/2018 6:00:44 Date Drawn AM AM Arterial Blood 7.352 7.297 *L pH (Temp corrected) Arterial Blood 55.8 H 59.7 H pCO2 (Temp correct) Arterial Blood 92.4 H 424.9 H pO2 (Temp corrected) Arterial Blood 30.3 H 28.5 H HCO3 Arterial Blood 3.6 H 1.0 Base Excess Arterial Blood 96.8 99.5 Oxygen Saturatio n Jarod Test ACCEPTAB ACCEPTAB Arterial Blood Left Radial Right Radial Gas Puncture Site Arterial 0.2 0.3 Blood Carboxyhem oglobin Arterial Blood 0.4 0.5 Methemoglobin Blood Gas A-a O2 564.8 H 228.4 H Differential Oxyhemoglobin 96.2 98.7 Percent Blood Gas 37.0 37.0 Temperature Blood Gas 20.0 20.0 Respiration Rate Blood Gas Actual 30 27 Respiration Rate Blood Gas MASK - BIPAP MASK - BIPAP Modality FiO2 100.0 100.0 Blood Gas 10 10 Pressure Support Blood Gas 05/09 05/09 IPAP/EPAP Ratio Blood Gas [facility] Notified Whom Blood Gas 08/30/2018 1:31:15 08/30/2018 6:16:46 Notified Time AM AM Bedside Glucose 96 White Blood 11.9 #H Count Red Blood Count 3.68 L Hemoglobin 10.4 L Hematocrit 32.4 L Mean Corpuscular 88.0 Volume Mean Corpuscular 28.3 L Hemoglobin Mean Corpuscular 32.1 Hemoglobin Glenny nt Red Cell 17.9 H Distribution Width Platelet Count 134 #L Mean Platelet 11.4 H Volume Immature 8.400 H Granulocytes % Neutrophils % Segmented 79 H Neutrophils % (Manual) Band Neutrophils 9 H % (Manual) Lymphocytes % Lymphocytes % 4 L (Manual) Reactive 1 H Lymphocytes % (Manual) Monocytes % Monocytes % 3 (Manual) Eosinophils % Basophils % Basophils % 1 (Manual) Myelocytes % 3 H (Manual) Nucleated Red 1 H Blood Cells % Immature 1.000 H Granulocytes # Neutrophils # Neutrophils # 9.5 H (Manual) Band Neutrophils 1.0 H # Lymphocytes 0.4 L (Manual) Lymphocytes # Reactive 0.1 H Lymphocytes # Monocytes # Monocytes # 0.3 (Manual) Eosinophils # Basophils # Basophils # 0.1 H (Manual) Myelocytes # 0.3 H Nucleated Red Blood Cells # Toxic 3+ Granulation Platelet NORMAL Estimate Polychromasia 3+ Poikilocytosis 1+ Anisocytosis 1+ Ovalocytes 1+ Sodium Level 143 Potassium Level 3.7 Chloride Level 109 Carbon Dioxide 30 Level Anion Gap 4 L Blood Urea 30 H Nitrogen Creatinine 0.31 L Est Glomerular Filtrat Rate mL/min Glucose Level 101 Calcium Level 9.2 Phosphorus Level 2.9 Magnesium Level 2.1 Blood Gas JUNG CANALES Critical Value Read Back Test 08/30/18 12:24 Lactic Acid 0.9 Level Medications Medication Current Medications Miscellaneous Information (Pending [facility] Order For Wound Care) This patient tabares... PRN PRN XX WOUND CARE; Start 08/16/18 at 20:00 Acetaminophen (Tylenol Tab) 500 mg Q4H PRN PO MILD PAIN(1-3)OR ELEVATED TEMP Last administered on 08/30/18at 03:04; Admin Dose 500 MG; Start 08/16/18 at 20:00 Ascorbic Acid (Vitamin C) 500 mg BID GTB Last administered on 08/30/18 09:51; Admin Dose 500 MG; Start 08/16/18 at 21:00 Bicalutamide (Casodex) 50 mg DAILY PO ; Start 08/17/18 at 09:00; Status Hold Norepinephrine 250 ml @ 1.875 mls/ hr TITRATE IV Last administered on 08/19/18at 11:59; Admin Dose 1.875 MLS/HR; Start 08/19/18 at 11:00 Phenylephrine HCl 40 mg/Dextrose 250 ml @ 37.5 mls/hr TITRATE IV Last administered on 08/22/18at 00:09; Admin Dose 26.25 MLS/HR; Start 08/19/18 at 14:00 Methenamine (Hiprex) 1 gm BID GTB Last administered on 08/30/18 09:51; Admin Dose 1 GM; Start 08/20/18 at 21:00 Prenat Multivit/ Multimedia Authoring Specialist/Iron/Folic Ac () 1 tab DAILY GTB Last administered on 08/30/18 09:50; Admin Dose 1 TAB; Start 08/21/18 at 09:00 Zinc Sulfate (Zinc Sulfate) 220 mg DAILY GTB Last administered on 08/30/18 09:50; Admin Dose 220 MG; Start 08/21/18 at 09:00 Finasteride (Proscar) 5 mg DAILY GTB Last administered on 08/30/18at 09:51; Admin Dose 5 MG; Start 08/20/18 at 10:00 Morphine Sulfate (morphine) 1 mg Q4H PRN IV SEVERE PAIN LEVEL 7-10; Start 08/21/18 at 12:00 Eye Lubricant (Artificial Tears Oph) 1 drop TID BOTH EYES Last administered on 08/30/18at 10:00; Admin Dose 1 DROP; Start 08/27/18 at 21:00 Metoprolol Tartrate (Lopressor) 25 mg BID JT Last administered on 08/30/18at 07 :54; Admin Dose 25 MG; Start 08/27/18 at 21:00 Loperamide HCl (Imodium 1mg/5ml (10 ml Cup)) 2 mg QID PRN GTB DIARRHEA; Start 08/29/18 at 17:00 Acetylcysteine (Mucomyst) 2 ml Q3H RESP THERAPY NEB Last administered on 08/30/18 11:15; Admin Dose 2 ML; Start 08/30/18 at 11:00 Levalbuterol (Xopenex Neb) 0.63 mg Q3H RESP THERAPY HHN Last administered on 08/30/18at 11:15; Admin Dose 0.63 MG; Start 08/30/18 at 11:00 Cefepime HCl 50 ml @ 100 mls/hr Q12 IVPB Last administered on 08/30/18at 11:36; Admin Dose 100 MLS/HR; Start 08/30/18 at 11:00 Metoprolol Tartrate (Lopressor) 5 mg Q4H PRN IV HR>105 Hr<60; Start 08/30/18 at 10:00 Lorazepam (Ativan) 1 mg Q2H PRN IV ANXIETY Last administered on 08/30/18at 11:32; Admin Dose 1 MG; Start 08/30/18 at 11:00 Vancomycin HCl (Vanco Iv Per Pharmacy) 1 ea PER PROTOCOL XX ; Start 08/30/18 at 11:30 Lansoprazole (Prevacid) 30 mg DAILY@06 GTB ; Start 08/31/18 at 06:00 Vancomycin HCl 250 ml @ 125 mls/hr ONCE IVPB ; Start 08/30/18 at 14:00; Stop 08/30/18 at 14:01 Vancomycin/Sodium Chloride 250 ml @ 125 mls/hr Q24H IVPB ; Start 08/31/18 at 14:00 ADRIEL DELCID August 30, 2018 13:09
[2018-08-30] MEDS ORDERED: VANCOMYCIN 1 GM 250 ML IVPB SCH (14:00)
[2018-08-30] MEDS ORDERED: VANCOMYCIN 1 GM (PMX) 250 ML IVPB ONE (16:00)
[2018-08-30] MEDS ORDERED: PENDING SANTYL ORDER FOR WOUND CARE XX PRN (17:30)
[2018-08-30] MEDS ORDERED: LOPERAMIDE HCL 1 MG/5 ML LIQUID (10 ML UD CUP) GTB PRN (17:30)
--- NOTE | 2018-08-30 17:50 | CONS ---
Assessment/Plan Assessment/Plan Hospital Course (Demo Recall) IMPRESSION: 1. Abnormal electrocardiogram, assess for acute coronary syndrome.-neg trop x 2. NL EF by echo this admit 2. Cardiac arrhythmia at this time, most consistent with sinus arrhythmia.-mild tachycardia, sinus arrythmia. NL TSH- now with increased S tachycardia today-? due to pain/resp distress/anxiety/hypotension 3. Hypotension-now off neosynephrine 4. Dysphagia, post-op status post PEG placement 5. Failure to thrive. 6. History of prostate carcinoma. 7. History of aplastic anemia-currently improved 8. Hypernatremia. 10. Pancytopenia-currently overall improved Hgb 11. Resp failure s/p extubation 12. Pleural effusion s/p thoracentesis c/b PTX with CT now 14. PNA 15. Tacchycardia Recc: -ICU -s/p IV digoxin in attempt to improve HR -serial ecg's -follow Hgb closely and transfuse as necessary -Continue avodart -Continue abx's and f/u cx data -Follow volume status -Follow HR/BP closely -s/p albumin infusion x 2 -tolerating low dose BB and use IVP PRN BB as necessary and tolearted -Follow resp status closely with frequent suctioning -DNR Consultation Date/Type/Reason Admit Date/Time Aug 17, 2018 at 09:51 Initial Consult Date 08/17/18 Type of Consult Cardiology Reason for Consultation tachycardia Requesting Provider: SANIA WHITTINGTON MD Date/Time of Note DATE: 08/30/18 TIME: 17:45 Exam/Review of Systems Vital Signs Vitals Vital Signs Date Temp Pulse Resp B/P (MAP) Pulse Ox O2 O2 Flow FiO2 Time Delivery Rate 08/30/18 105 41 79/41 (54) 92 Venturi 15.0 17:01 Mask 08/30/18 98.0 16:00 08/30/18 100 12:30 Intake and Output 08/29/18 08/29/18 08/30/18 1414:59 22:59 06:59 IntakeIntake Total 50 ml 820 ml 410 ml OutputOutput Total 580 ml 555 ml 245 ml BalanceBalance -530 ml 265 ml 165 ml Exam Exam Review of Systems: CONSTITUTIONAL: No fevers, chills. PULMONARY: No sob CARDIOVASCULAR: No chest pain/palpitations GASTROINTESTINAL: No nausea/vomiting. GENITOURINARY: No hematuria/dysuria. MUSCULOSKELETAL: No myagias/arthalgias. PSYCHIATRIC: The patient denies depression. NEUROLOGIC: No weakness Constitutional: other (encephalopathic) Psych: no complaints Head: normocephalic ENMT: mucosa pink and moist Neck: supple, jvd (9 cm water) Respiratory: diminished breath sounds (at bases/B) Cardiovascular: regular rate and rhythm Gastrointestinal: soft, non-tender Musculoskeletal: muscle tone (normal) Extremities: edema Labs Result Diagram: 08/30/18 0510 08/30/18 0510 Results 24hrs Laboratory Tests Test 08/30/18 01:05 08/30/18 01:33 08/30/18 05:10 08/30/18 06:00 Blood Gas Blood arterial Blood arterial Specimen Source Arterial Blood 08/30/2018 1:15:32 08/30/2018 6:00:44 Date Drawn AM AM Arterial Blood 7.352 7.297 *L pH (Temp corrected) Arterial Blood 55.8 H 59.7 H pCO2 (Temp correct) Arterial Blood 92.4 H 424.9 H pO2 (Temp corrected) Arterial Blood 30.3 H 28.5 H HCO3 Arterial Blood 3.6 H 1.0 Base Excess Arterial Blood 96.8 99.5 Oxygen Saturatio n Jarod Test ACCEPTAB ACCEPTAB Arterial Blood Left Radial Right Radial Gas Puncture Site Arterial 0.2 0.3 Blood Carboxyhem oglobin Arterial Blood 0.4 0.5 Methemoglobin Blood Gas A-a O2 564.8 H 228.4 H Differential Oxyhemoglobin 96.2 98.7 Percent Blood Gas 37.0 37.0 Temperature Blood Gas 20.0 20.0 Respiration Rate Blood Gas Actual 30 27 Respiration Rate Blood Gas MASK - BIPAP MASK - BIPAP Modality FiO2 100.0 100.0 Blood Gas 10 10 Pressure Support Blood Gas 05/09 05/09 IPAP/EPAP Ratio Blood Gas ILAN TALAVERA Notified Whom Blood Gas 08/30/2018 1:31:15 08/30/2018 6:16:46 Notified Time AM AM Bedside Glucose 96 White Blood 11.9 #H Count Red Blood Count 3.68 L Hemoglobin 10.4 L Hematocrit 32.4 L Mean Corpuscular 88.0 Volume Mean Corpuscular 28.3 L Hemoglobin Mean Corpuscular 32.1 Hemoglobin Glenny nt Red Cell 17.9 H Distribution Width Platelet Count 134 #L Mean Platelet 11.4 H Volume Immature 8.400 H Granulocytes % Neutrophils % Segmented 79 H Neutrophils % (Manual) Band Neutrophils 9 H % (Manual) Lymphocytes % Lymphocytes % 4 L (Manual) Reactive 1 H Lymphocytes % (Manual) Monocytes % Monocytes % 3 (Manual) Eosinophils % Basophils % Basophils % 1 (Manual) Myelocytes % 3 H (Manual) Nucleated Red 1 H Blood Cells % Immature 1.000 H Granulocytes # Neutrophils # Neutrophils # 9.5 H (Manual) Band Neutrophils 1.0 H # Lymphocytes 0.4 L (Manual) Lymphocytes # Reactive 0.1 H Lymphocytes # Monocytes # Monocytes # 0.3 (Manual) Eosinophils # Basophils # Basophils # 0.1 H (Manual) Myelocytes # 0.3 H Nucleated Red Blood Cells # Toxic 3+ Granulation Platelet NORMAL Estimate Polychromasia 3+ Poikilocytosis 1+ Anisocytosis 1+ Ovalocytes 1+ Sodium Level 143 Potassium Level 3.7 Chloride Level 109 Carbon Dioxide 30 Level Anion Gap 4 L Blood Urea 30 H Nitrogen Creatinine 0.31 L Est Glomerular Filtrat Rate mL/min Glucose Level 101 Calcium Level 9.2 Phosphorus Level 2.9 Magnesium Level 2.1 Blood Gas RFIGUEROA RN Critical Value Read Back Test 08/30/18 12:24 Lactic Acid 0.9 Level Procalcitonin 0.39 H Medications Medications Current Medications Morphine Sulfate (morphine) 1 mg Q4H PRN IV SEVERE PAIN LEVEL 7-10; Start 08/21/18 at 12:00 Eye Lubricant (Artificial Tears Oph) 1 drop TID BOTH EYES Last administered on 08/30/18at 17:06; Admin Dose 1 DROP; Start 08/27/18 at 21:00 Lorazepam (Ativan) 1 mg Q2H PRN IV ANXIETY Last administered on 08/30/18 11:32; Admin Dose 1 MG; Start 08/30/18 at 11:00 Vancomycin HCl 250 ml @ 125 mls/hr ONCE ONCE IVPB Last administered on 08/30/18 16:25; Admin Dose 125 MLS/HR; Start 08/30/18 at 16:00; Stop 08/30/18 at 17:59 LUIS ALBERTO EDWARD August 30, 2018 17:50
--- NOTE | 2018-08-30 19:09 | RADRPT ---
Vent Rate: 119 bpm RR Interval: 503 msec DE Interval: 150 msec QRS Duration: 66 msec QT Interval: 311 msec QTC Interval: 439 msec P-R-T [place]: 12 - 52 - 76 degrees Sinus tachycardia...rate> 99 Atrial premature complex...SV complex w/ short R-R interval Probable left atrial enlargement...P >50mS, <-0.10mV V1 Anterior infarct, old...Q >40mS, abnormal ST-T, V2-V5 Lead(s) aVL were not used for morphology analysis Electronically Signed By: Rafa Hutchison
[2018-08-30] MEDS ORDERED: morphine 2 MG INJ IV PRN (20:00)
[2018-08-30] MEDS: METOPROLOL 25 MG TAB GTB SCH (21:00)
[2018-08-30] MEDS: CEFEPIME 2GM/50 ML (PMX) 50 ML IVPB SCH (21:54)
[2018-08-30] MEDS: METHENAMINE 1 GM TAB PO SCH (21:54)
[2018-08-30] MEDS: morphine 2 MG INJ IV PRN (22:16)
[2018-08-31] VITALS (23 sets, daily range): BP systolic 86–103; BP diastolic 39–50; PULSE 103–117; RESP 27–43
[2018-08-31] MEDS: LEVALBUTEROL (NEB) 0.63 MG/3 ML AMP HHN SCH ×4 (01:56→20:25)
[2018-08-31] MEDS: ACETYLCYSTEINE 20% 4 ML VIAL NEB SCH ×4 (01:57→20:25)
[2018-08-31] MEDS: morphine 2 MG INJ IV PRN ×3 (03:27→23:25)
[2018-08-31] MEDS: LANSOPRAZOLE 30 MG CAP GTB SCH (05:54)
[2018-08-31] MEDS ORDERED: LANSOPRAZOLE 30 MG CAP GTB SCH (06:00)
[2018-08-31] MEDS: METOPROLOL 25 MG TAB GTB SCH ×2 (09:00→21:47)
--- NOTE | 2018-08-31 09:06 | CONS ---
Consultation Date/Type/Reason Admit Date/Time Aug 17, 2018 at 09:51 Initial Consult Date 08/17/18 Type of Consult Cardiology Requesting Provider: SANIA WHITTINGTON MD Date/Time of Note DATE: 08/31/18 TIME: 09:06 24 HR Interval Summary Free Text/Dictation Pt made comfort care. Will follow peripherally now. Exam/Review of Systems Vital Signs Vitals Vital Signs Date Temp Pulse Resp B/P (MAP) Pulse Ox O2 O2 Flow FiO2 Time Delivery Rate 08/31/18 111 38 99 Venti Mask 15.0 50 08:36 08/31/18 88/40 (56) 06:00 08/31/18 98.6 00:00 Intake and Output 08/30/18 08/30/18 08/31/18 1515:00 23:00 07:00 IntakeIntake Total 710 ml 780 ml 520 ml OutputOutput Total 450 ml 335 ml 735 ml BalanceBalance 260 ml 445 ml -215 ml Labs Result Diagram: 08/30/18 0510 08/30/18 0510 Results 24hrs Laboratory Tests Test 08/30/18 12:24 Lactic Acid Level 0.9 Procalcitonin 0.39 H Medications Medications Current Medications Eye Lubricant (Artificial Tears Oph) 1 drop TID BOTH EYES Last administered on 08/30/18at 21:54; Admin Dose 1 DROP; Start 08/27/18 at 21:00 Lorazepam (Ativan) 1 mg Q2H PRN IV ANXIETY Last administered on 08/30/18at 11:32; Admin Dose 1 MG; Start 08/30/18 at 11:00 Vancomycin HCl (Vanco Iv Per Pharmacy) 1 ea PER PROTOCOL XX ; Start 08/30/18 at 11:30 Cefepime HCl 50 ml @ 100 mls/hr Q12 IVPB Last administered on 08/30/18at 21:54; Admin Dose 100 MLS/HR; Start 08/30/18 at 21:00 Vancomycin/Sodium Chloride 250 ml @ 125 mls/hr Q24H IVPB ; Start 08/31/18 at 16:00 Metoprolol Tartrate (Lopressor) 25 mg BID GTB ; Start 08/30/18 at 21:00 Ascorbic Acid (Vitamin C) 500 mg BID GTB Last administered on 08/30/18at 21:54; Admin Dose 500 MG; Start 08/30/18 at 21:00 Methenamine (Hiprex) 1 gm BID PO Last administered on 08/30/18at 21:54; Admin Dose 1 GM; Start 08/30/18 at 21:00 Finasteride (Proscar) 5 mg DAILY GTB ; Start 08/31/18 at 09:00 Lansoprazole (Prevacid) 30 mg DAILY@06 GTB Last administered on 08/31/18at 05:54; Admin Dose 30 MG; Start 08/31/18 at 06:00 Loperamide HCl (Imodium 1mg/5ml (10 ml Cup)) 2 mg QID PRN GTB DIARRHEA; Start 08/30/18 at 17:30 Metoprolol Tartrate (Lopressor) 5 mg Q4H PRN IV FOR HR>105, HOLD FOR HR<60; S tart 08/30/18 at 17:30 Prenat Multivit/ [place]/Iron/Folic Ac () 1 tab DAILY PO ; Start 08/31/18 at 09:00 Zinc Sulfate (Zinc Sulfate) 220 mg DAILY GTB ; Start 08/31/18 at 09:00 Miscellaneous Information (Pending [facility] Order For Wound Care) This patient tabares... PRN PRN XX WOUND CARE; Start 08/30/18 at 17:30 Acetylcysteine (Mucomyst) 2 ml Q6H RESP THERAPY NEB Last administered on 08/31/18at 08:30; Admin Dose 2 ML; Start 08/31/18 at 02:00 Levalbuterol (Xopenex Neb) 0.63 mg Q6H RESP THERAPY HHN Last administered on 08/31/18at 08:26; Admin Dose 0.63 MG; Start 08/31/18 at 02:00 Morphine Sulfate (morphine) 1 mg Q4H PRN IV SEVERE PAIN LEVEL 7-10 Last administered on 08/31/18at 03:27; Admin Dose 1 MG; Start 08/30/18 at 22:30 Morphine Sulfate (morphine) 2 mg Q2H PRN IV SHORTNESS OF BREATH; Start 08/30/18 at 23:30 JANETT RAMIREZ MD August 31, 2018 09:06
[2018-08-31] MEDS: ASCORBIC ACID 500 MG TAB GTB SCH ×2 (11:01→21:48)
[2018-08-31] MEDS: FINASTERIDE 5 MG TAB GTB SCH (11:01)
[2018-08-31] MEDS: METHENAMINE 1 GM TAB PO SCH (11:01)
[2018-08-31] MEDS: ZINC SULFATE 220 MG CAP GTB SCH (11:01)
[2018-08-31] MEDS: PRENATAL VITAMIN PO SCH (11:01)
[2018-08-31] MEDS: ARTIFICIAL TEARS 15 ML OPH BOTH EYES SCH ×3 (11:02→21:48)
[2018-08-31] MEDS: BALSAM PERU/CASTOR OIL 60 GM TUBE TOP SCH ×2 (11:03→21:48)
[2018-08-31] MEDS: CEFEPIME 2GM/50 ML (PMX) 50 ML IVPB SCH ×2 (11:04→21:47)
--- NOTE | 2018-08-31 12:52 | CONS ---
Assessment/Plan Assessment/Plan Assessment/Plan (Daily) 1. acute prerenal azotemia 2. Septic shock 2/2 UTI 3. right sided pneumothorax s/p R chest tube placement 4. acute hypoxemic respiratory failure intubated on ventilator 5. Metastatic prostate CA 6. Dysphagia s/p G tube placement 7. UTI with Urine cx growign Pseudomonas Plan : Pt is doing very poor, made comfort care, on morphine will sing off now, call us if any questions Consultation Date/Type/Reason Admit Date/Time Aug 17, 2018 at 09:51 Initial Consult Date 08/21/18 Type of Consult NEPHROLOGY Requesting Provider: SANIA WHITTINGTON MD Date/Time of Note DATE: 08/31/18 TIME: 12:52 24 HR Interval Summary Free Text/Dictation pt is made comfort care, BP labile, on morphine Exam/Review of Systems Exam Vitals Vital Signs Date Temp Pulse Resp B/P (MAP) Pulse Ox O2 O2 Flow FiO2 Time Delivery Rate 08/31/18 111 38 99 Venti Mask 15.0 50 08:36 08/31/18 88/40 (56) 06:00 08/31/18 98.6 00:00 Intake and Output 08/30/18 08/30/18 08/31/18 1414:59 22:59 06:59 IntakeIntake Total 710 ml 670 ml 630 ml OutputOutput Total 480 ml 335 ml 735 ml BalanceBalance 230 ml 335 ml -105 ml Exam Constitutional: well developed, non-verbal, frail Psych: nl mood/affect Eyes: nl lids, nl sclera ENMT: nl external ears & nose Neck: jvd Respiratory: diminished breath sounds (blateral at bases) Cardiovascular: nl pulses, other (s1s2) Gastrointestinal: soft, non-tender, other (GT intact) Musculoskeletal: muscle weakness Extremities: normal pulses Neurological: unresponsive Results Result Diagram: 08/30/1850908/30/18509 Medications Medication Current Medications Eye Lubricant (Artificial Tears Oph) 1 drop TID BOTH EYES Last administered on 08/31/18at 11:02; Admin Dose 1 DROP; Start 08/27/18 at 21:00 Lorazepam (Ativan) 1 mg Q2H PRN IV ANXIETY Last administered on 08/30/18at 11:32; Admin Dose 1 MG; Start 08/30/18 at 11:00 Vancomycin HCl (Vanco Iv Per Pharmacy) 1 ea PER PROTOCOL XX ; Start 08/30/18 at 11:30 Cefepime HCl 50 ml @ 100 mls/hr Q12 IVPB Last administered on 08/31/18at 11:04; Admin Dose 100 MLS/HR; Start 08/30/18 at 21:00 Vancomycin/Sodium Chloride 250 ml @ 125 mls/hr Q24H IVPB ; Start 08/31/18 at 16:00 Metoprolol Tartrate (Lopressor) 25 mg BID GTB ; Start 08/30/18 at 21:00 Ascorbic Acid (Vitamin C) 500 mg BID GTB Last administered on 08/31/18at 11:01; Admin Dose 500 MG; Start 08/30/18 at 21:00 Methenamine (Hiprex) 1 gm BID PO Last administered on 08/31/18at 11:01; Admin Dose 1 GM; Start 08/30/18 at 21:00 Finasteride (Proscar) 5 mg DAILY GTB Last administered on 08/31/18at 11:01; Admin Dose 5 MG; Start 08/31/18 at 09:00 Lansoprazole (Prevacid) 30 mg DAILY@06 GTB Last administered on 08/31/18at 05:54; Admin Dose 30 MG; Start 08/31/18 at 06:00 Loperamide HCl (Imodium 1mg/5ml (10 ml Cup)) 2 mg QID PRN GTB DIARRHEA; Start 08/30/18 at 17:30 Metoprolol Tartrate (Lopressor) 5 mg Q4H PRN IV FOR HR>105, HOLD FOR HR<60; Start 08/30/18 at 17:30 Prenat Multivit/ [place]/Iron/Folic Ac () 1 tab DAILY PO Last administered on 08/31/18at 11:01; Admin Dose 1 TAB; Start 08/31/18 at 09:00 Zinc Sulfate (Zinc Sulfate) 220 mg DAILY GTB Last administered on 08/31/18at 11:01; Admin Dose 220 MG; Start 08/31/18 at 09:00 [facility] This patient tabares... PRN PRN XX WOUND CARE; Start 08/30/18 at 17:30 Acetylcysteine (Mucomyst) 2 ml Q6H RESP THERAPY NEB Last administered on 08/31/18 08:30; Admin Dose 2 ML; Start 08/31/18 at 02:00 Levalbuterol (Xopenex Neb) 0.63 mg Q6H RESP THERAPY HHN Last administered on 08/31/18 08:26; Admin Dose 0.63 MG; Start 08/31/18 at 02:00 Morphine Sulfate (morphine) 1 mg Q4H PRN IV SEVERE PAIN LEVEL 7-10 Last administered on 08/31/18 03:27; Admin Dose 1 MG; Start 08/30/18 at 22:30 Morphine Sulfate (morphine) 2 mg Q2H PRN IV SHORTNESS OF BREATH Last administered on 08/31/18 11:02; Admin Dose 2 MG; Start 08/30/18 at 23:30 CELIA KUMAR MD August 31, 2018 12:52
--- NOTE | 2018-08-31 13:44 | CONS ---
Assessment/Plan Assessment/Plan Hospital Course (Demo Recall) Case will be coordinated with [employer] MELVIN WANG via [employer] texting and phone call. I reviewed the emr as well and will be directing care shortly. Consultation Date/Type/Reason Admit Date/Time Aug 17, 2018 at 09:51 Initial Consult Date 08/23/18 Requesting Provider: SANIA WHITTINGTON MD Date/Time of Note DATE: 08/31/18 TIME: 13:44 Exam/Review of Systems Exam Vitals Vital Signs Date Temp Pulse Resp B/P (MAP) Pulse Ox O2 O2 Flow FiO2 Time Delivery Rate 08/31/18 111 38 99 Venti Mask 15.0 50 08:36 08/31/18 88/40 (56) 06:00 08/31/18 98.6 00:00 Intake and Output 08/30/18 08/30/18 08/31/18 1414:59 22:59 06:59 IntakeIntake Total 710 ml 670 ml 630 ml OutputOutput Total 480 ml 335 ml 735 ml BalanceBalance 230 ml 335 ml -105 ml Results Result Diagram: 08/30/18 0510 08/30/18 0510 Medications Medication Current Medications Eye Lubricant (Artificial Tears Oph) 1 drop TID BOTH EYES Last administered on 08/31/18at 11:02; Admin Dose 1 DROP; Start 08/27/18 at 21:00 Lorazepam (Ativan) 1 mg Q2H PRN IV ANXIETY Last administered on 08/30/18at 11:32; Admin Dose 1 MG; Start 08/30/18 at 11:00 Vancomycin HCl (Vanco Iv Per Pharmacy) 1 ea PER PROTOCOL XX ; Start 08/30/18 at 11:30 Cefepime HCl 50 ml @ 100 mls/hr Q12 IVPB Last administered on 08/31/18at 11:04; Admin Dose 100 MLS/HR; Start 08/30/18 at 21:00 Vancomycin/Sodium Chloride 250 ml @ 125 mls/hr Q24H IVPB ; Start 08/31/18 at 16:00 Metoprolol Tartrate (Lopressor) 25 mg BID GTB ; Start 08/30/18 at 21:00 Ascorbic Acid (Vitamin C) 500 mg BID GTB Last administered on 08/31/18at 11:01; Admin Dose 500 MG; Start 08/30/18 at 21:00 Methenamine (Hiprex) 1 gm BID PO Last administered on 08/31/18 11:01; Admin Dose 1 GM; Start 08/30/18 at 21:00 Finasteride (Proscar) 5 mg DAILY GTB Last administered on 08/31/18 11:01; Admin Dose 5 MG; Start 08/31/18 at 09:00 Lansoprazole (Prevacid) 30 mg DAILY@06 GTB Last administered on 08/31/18 05:54; Admin Dose 30 MG; Start 08/31/18 at 06:00 Loperamide HCl (Imodium 1mg/5ml (10 ml Cup)) 2 mg QID PRN GTB DIARRHEA; Start 08/30/18 at 17:30 Metoprolol Tartrate (Lopressor) 5 mg Q4H PRN IV FOR HR>105, HOLD FOR HR<60; Start 08/30/18 at 17:30 Prenat Multivit/ [place]/Iron/Folic Ac () 1 tab DAILY PO Last administered on 08/31/18 11:01; Admin Dose 1 TAB; Start 08/31/18 at 09:00 Zinc Sulfate (Zinc Sulfate) 220 mg DAILY GTB Last administered on 08/31/18 11:01; Admin Dose 220 MG; Start 08/31/18 at 09:00 Miscellaneous Information (Pending [facility] Order For Wound Care) This patient tabares... PRN PRN XX WOUND CARE; Start 08/30/18 at 17:30 Acetylcysteine (Mucomyst) 2 ml Q6H RESP THERAPY NEB Last administered on 08/31/18 08:30; Admin Dose 2 ML; Start 08/31/18 at 02:00 Levalbuterol (Xopenex Neb) 0.63 mg Q6H RESP THERAPY HHN Last administered on 08/31/18 08:26; Admin Dose 0.63 MG; Start 08/31/18 at 02:00 Morphine Sulfate (morphine) 1 mg Q4H PRN IV SEVERE PAIN LEVEL 7-10 Last administered on 08/31/18 03:27; Admin Dose 1 MG; Start 08/30/18 at 22:30 Morphine Sulfate (morphine) 2 mg Q2H PRN IV SHORTNESS OF BREATH Last administered on 08/31/18 11:02; Admin Dose 2 MG; Start 08/30/18 at 23:30 CULLEN FERRARO MD August 31, 2018 13:44
[2018-08-31] MEDS ORDERED: VANCOMYCIN 750 MG (PMX) 250 ML IVPB SCH ×2 (14:00→16:00)
--- NOTE | 2018-08-31 14:07 | PN ---
DATE: 08/31/2018 . Events noted. As per family, wishes patient is now DNR on comfort measures. PHYSICAL EXAMINATION: VITAL SIGNS: Blood pressure 88/40, pulse 111, respirations 36, afebrile. Patient on ventimask satur ating 91%. NECK: Supple. No JVD noted. No lymphadenopathy noted. LUNGS: Few scattered rhonchi. Diffuse breath sounds bilaterally. CARDIOVASCULAR: S1, S2 normal. ABDOMEN: Soft, nontender, no masses noted. EXTREMITIES: No clubbing or cyanosis noted. 1+ edema present. NEUROLOGIC: Lethargic. No new labs. IMPRESSION: 1. Acute hypercapnic and hypoxemic respiratory failure. 2. Status post tension pneumothorax. 3. Status post left lung atelectasis due to mucous plugging. 4. Status post SVT. 5. Pneumonia. 6. Urinary tract infection. 7. Prostate cancer. 8. Severe cachexia. 9. DNR/DNI status. PLAN: 1. Continue oxygen. 2. Comfort oriented care. 3. Prognosis extreme . Dictated By: RADHA MAY MD, MA/MORENO Conf#: [id number] DID#: [id number] CC: AILIN RUEDA MD;*EndCC*
--- NOTE | 2018-08-31 15:07 | CONS ---
Assessment/Plan Assessment/Plan Hospital Course (Demo Recall) # sepsis, SIRS, resp - comfort measures - septic shock due to UTI plus SIRS due to possible aspiration, pneumothorax, improved - septic shock due to UTI - SIRS due to possible aspiration pneumonitis - probable aspiration pneumonitis - pneumonia vs. colonization of the airway due to Enterobacter - treated with cefepime (08/21/2018-08/26/18) - b/l pleural effusion - s/p R sided thoracentesis on 08/17/2018. LDH 499, protein 3.2, WBC 89 with 6.8% neutrophils. Cultures of the fluid are negative; no malignant cells by cytology - s/p L sided thoracentesis on 08/24/2018. LDH 481, protein 2.1, WBC 345 with 31.7% neutrophils - s/p R PTX - s/p placement of R chest tube on 08/19/2018 - acute hypoxic resp failure - s/p intubation on 08/19/2018 - s/p extubation on 08/25/2018 # , heme/onc - UTI due to pseudomonas - treated with cefepime (08/21/2018-08/26/18) - prostate CA, with probable mets to the lungs and liver (based on CT result) - h/o recent chemotherapy for his prostate CA - frequent UTI prior to admission. Pt was on long-term antibiotic for prophylaxis according to Pt's son - pancytopenia, improving # GI, alimentary - transaminitis, probably a combination of liver metastasis and shock liver - moderately distended gallbladder with a moderate amount of sludge on liver SAKINA on 08/22/2018 - liver mets on liver SAKINA on 08/22/2018 - s/p failure to thrive - s/p placement of G-J tube on 08/16/2018 # other conditions - Alzheimer's dementia - acute metabolic encephalopathy Recommendations: - Continue Vancomycin IV - Continue Cefepime IV - Continue comfort measures per family wishes - Aspiration precautions Above plan discussed and coordinated with via [employer]. Consultation Date/Type/Reason Admit Date/Time Aug 17, 2018 at 09:51 Initial Consult Date 08/23/18 Requesting Provider: SANIA WHITTINGTON MD Date/Time of Note DATE: 08/31/18 TIME: 15:07 24 HR Interval Summary Free Text/Dictation Per d/w nurse and son at bedside family has decided for comfort measures with continuation of mediations. Subjective hx not possible: pt non-verbal Detailed Summary Additional Comments Unable to obtain due to patients clinical status. Exam/Review of Systems Exam Vitals Vital Signs Date Temp Pulse Resp B/P (MAP) Pulse Ox O2 O2 Flow FiO2 Time Delivery Rate 08/31/18 110 21 97 Venti Mask 15.0 50 15:05 08/31/18 88/40 (56) 06:00 08/31/18 98.6 00:00 Intake and Output 08/30/18 08/30/18 08/31/18 1515:00 23:00 07:00 IntakeIntake Total 710 ml 780 ml 520 ml OutputOutput Total 450 ml 335 ml 735 ml BalanceBalance 260 ml 445 ml -215 ml Exam femoral tripple lumen catheter Constitutional: well developed, non-verbal; No alert Psych: other (unable to assess) Head: normocephalic, atraumatic Eyes: other (eyes closed) ENMT: nl lips & teeth Neck: supple Respiratory: diminished breath sounds, respirations, other (tachypneic, on facemask 15L) Cardiovascular: edema (+2BUE +1BLE), other (S. Tachycardic ); No regular rate and rhythm Gastrointestinal: soft; No distended, No firm, No rebound or guarding Genitourinary - Male: other (FC) Musculoskeletal: nl extremities to inspection Extremities: edema; No cyanosis, No clubbing Neurological: lethargic, other (withdraws to painful stimuli, limited exam due to clinical status) Skin: No rash or lesions Results Result Diagram: 08/30/1850908/30/18509 Medications Medication Current Medications Eye Lubricant (Artificial Tears Oph) 1 drop TID BOTH EYES Last administered on 08/31/18at 11:02; Admin Dose 1 DROP; Start 08/27/18 at 21:00 Lorazepam (Ativan) 1 mg Q2H PRN IV ANXIETY Last administered on 08/30/18at 11:32; Admin Dose 1 MG; Start 08/30/18 at 11:00 Vancomycin HCl (Vanco Iv Per Pharmacy) 1 ea PER PROTOCOL XX ; Start 08/30/18 at 11:30 Cefepime HCl 50 ml @ 100 mls/hr Q12 IVPB Last administered on 08/31/18at 11:04; Admin Dose 100 MLS/HR; Start 08/30/18 at 21:00 Vancomycin/Sodium Chloride 250 ml @ 125 mls/hr Q24H IVPB ; Start 08/31/18 at 16:00 Metoprolol Tartrate (Lopressor) 25 mg BID GTB ; Start 08/30/18 at 21:00 Ascorbic Acid (Vitamin C) 500 mg BID GTB Last administered on 08/31/18 11:01; Admin Dose 500 MG; Start 08/30/18 at 21:00 Methenamine (Hiprex) 1 gm BID PO Last administered on 08/31/18 11:01; Admin Dose 1 GM; Start 08/30/18 at 21:00 Finasteride (Proscar) 5 mg DAILY GTB Last administered on 08/31/18 11:01; Admin Dose 5 MG; Start 08/31/18 at 09:00 Lansoprazole (Prevacid) 30 mg DAILY@06 GTB Last administered on 08/31/18at 05:54; Admin Dose 30 MG; Start 08/31/18 at 06:00 Loperamide HCl (Imodium 1mg/5ml (10 ml Cup)) 2 mg QID PRN GTB DIARRHEA; Start 08/30/18 at 17:30 Metoprolol Tartrate (Lopressor) 5 mg Q4H PRN IV FOR HR>105, HOLD FOR HR<60; Start 08/30/18 at 17:30 Prenat Multivit/ [place]/Iron/Folic Ac () 1 tab DAILY PO Last administered on 08/31/18 11:01; Admin Dose 1 TAB; Start 08/31/18 at 09:00 Zinc Sulfate (Zinc Sulfate) 220 mg DAILY GTB Last administered on 08/31/18at 11:01; Admin Dose 220 MG; Start 08/31/18 at 09:00 [facility]iscellaneous [facility] This patient tabares... PRN PRN XX WOUND CARE; Start 08/30/18 at 17:30 Acetylcysteine (Mucomyst) 2 ml Q6H RESP THERAPY NEB Last administered on 08/31/18at 15:03; Admin Dose 2 ML; Start 08/31/18 at 02:00 Levalbuterol (Xopenex Neb) 0.63 mg Q6H RESP THERAPY HHN Last administered on 08/31/18 15:03; Admin Dose 0.63 MG; Start 08/31/18 at 02:00 Morphine Sulfate (morphine) 1 mg Q4H PRN IV SEVERE PAIN LEVEL 7-10 Last administered on 08/31/18 03:27; Admin Dose 1 MG; Start 08/30/18 at 22:30 Morphine Sulfate (morphine) 2 mg Q2H PRN IV SHORTNESS OF BREATH Last administered on 08/31/18at 11:02; Admin Dose 2 MG; Start 08/30/18 at 23:30 MELVIN WANG NP August 31, 2018 15:07
--- NOTE | 2018-08-31 19:23 | PN ---
DATE: 08/31/2018 SUBJECTIVE: Followup on metastatic prostate cancer, bilateral effusion, acute respiratory failure, dysphagia and possible pneumonia. The patient since yesterday has declined and had to be placed on 15-liter face mask. The patient still looks slightly tachypneic. The patient's family has not still placed him on comfort care, although they are more inclined towards using frequent dose of morphine and Ativan to provide comfort. No reported vomiting, no reported fever or chills. The patient remains lethargic and nonverbal. No reported bleeding on any site. PHYSICAL EXAMINATION: NEUROLOGIC: The patient is lethargic and no useful communication possible. VITAL SIGNS: Temperature 98.1, pulse 113, respirations in the mid 30s, blood pressure 100/40, O2 saturation 92% on FIO2 of 50 on Venturi mask. HEENT: No eye discharge or redness. Conjunctivae are normal. Nose and ear are normal. Oral examination was deferred due to mask. NECK: No mass, no JVD. Slight use of accessory muscles. CHEST: Diminished air entry at the bases, scattered rhonchi. CARDIOVASCULAR: S1, S2 normal, no murmur. ABDOMEN: Soft. G-tube in place. EXTREMITIES: No edema or cyanosis. NEUROLOGIC: The patient is lethargic, but no useful communication possible. The patient has generalized weakness. LABORATORY DATA: WBC 11.9, hemoglobin 10.4, platelet 134. Procalcitonin 0.39. Sodium 140, potassium 3.7. IMPRESSION AND PLAN: 1. Acute respiratory failure possibly due to pneumonia and lung mets. Continue IV vancomycin and cefepime. Continue breathing treatments and Mucomyst. 2. Metastatic breast cancer, poor prognosis. Continue Proscar. 3. Thrombocytopenia. No active bleeding. Continue to monitor. 4. Anemia of malignancy. No indication for PRBC transfusion. We will continue to monitor. I met with the patient's son and daughter and updated them regarding the patient's poor prognosis and recommended only comfort care. We will continue to follow. Dictated By: SANIA REZA/MORENO Conf#: [id number] DID#: [id number] CC: AILIN RUEDA MD;*EndCC* MTDD
[2018-08-31] MEDS: METHENAMINE 1 GM TAB NGT SCH (21:48)
[2018-09-01] VITALS (24 sets, daily range): BP systolic 70–97; BP diastolic 30–53; PULSE 83–108; RESP 24–34
[2018-09-01] MEDS: ACETYLCYSTEINE 20% 4 ML VIAL NEB SCH ×4 (01:41→20:22)
[2018-09-01] MEDS: LEVALBUTEROL (NEB) 0.63 MG/3 ML AMP HHN SCH ×4 (01:41→20:22)
[2018-09-01] MEDS ORDERED: SCOPOLAMINE 1.5 MG PATCH TRANSDERM SCH (02:00)
[2018-09-01] MEDS: morphine 2 MG INJ IV PRN (05:14)
[2018-09-01] MEDS: LANSOPRAZOLE 30 MG CAP GTB SCH (06:07)
[2018-09-01] MEDS: PRENATAL VITAMIN PO SCH (09:55)
[2018-09-01] MEDS: ASCORBIC ACID 500 MG TAB GTB SCH ×2 (09:55→20:35)
[2018-09-01] MEDS: METOPROLOL 25 MG TAB GTB SCH (09:55)
[2018-09-01] MEDS: FINASTERIDE 5 MG TAB GTB SCH (09:55)
[2018-09-01] MEDS: ZINC SULFATE 220 MG CAP GTB SCH (09:55)
[2018-09-01] MEDS: METHENAMINE 1 GM TAB NGT SCH ×2 (09:55→20:35)
[2018-09-01] MEDS: ARTIFICIAL TEARS 15 ML OPH BOTH EYES SCH ×3 (09:56→20:35)
[2018-09-01] MEDS: CEFEPIME 2GM/50 ML (PMX) 50 ML IVPB SCH ×2 (09:56→20:35)
--- NOTE | 2018-09-01 13:04 | CONS ---
Assessment/Plan Assessment/Plan Hospital Course (Demo Recall) 1. Abnormal electrocardiogram, assess for acute coronary syndrome.-neg trop x 2. NL EF by echo this admi - r/o PA, no interbention currently planned, now in ICU - on bria gtt - will monitor clinically now. NOW in sinus - episodes of a tach - brief - will allow for now. TELE REVIEWED -no A. FIB - supportive Rx as tolerated 2. Cardiac arrhythmia at this time, most consistent with sinus arrhythmia.-mild tachycardia, sinus arrythmia. NL TSH - now with ainustach/a.tach- respiratory driven - not sure if BP will tolerate amio gtt - will hold for BP to stabilize.. 3. History of hypertension with per report hypotension at the end of the procedure. Better now. Now low. 4. Dysphagia, status post PEG - GI follows. 5. Failure to thrive- stable 6. History of prostate carcinoma - poor prognoss - dispo per primary team. 7. History of aplastic anemia with ongoing anemia at this time - no active bleeding now. [id number] now. Tolerated blood Tx - better H/H now. Responded to blood X now. 8. Hypernatremia. 9. Prerenal state - renal team follows. 10. Pancytopenia. Consultation Date/Type/Reason Admit Date/Time Aug 17, 2018 at 09:51 Initial Consult Date 08/17/18 Requesting Provider: SANIA WHITTINGTON MD Date/Time of Note DATE: 09/01/18 TIME: 13:03 24 HR Interval Summary Free Text/Dictation NO acute events - comfort care now Exam/Review of Systems Exam Vitals Vital Signs Date Temp Pulse Resp B/P (MAP) Pulse Ox O2 O2 Flow FiO2 Time Delivery Rate 09/01/18 87 29 87/42 (57) 98 Venturi 12:00 Mask 09/01/18 98.7 08:00 09/01/18 9.0 35 07:55 Intake and Output 08/31/18 08/31/18 09/01/18 1515:00 23:00 07:00 IntakeIntake Total 460 ml 780 ml 400 ml OutputOutput Total 45 ml 147 ml 775 ml BalanceBalance 415 ml 633 ml -375 ml Results Result Diagram: 08/30/18 0510 08/30/18 0510 Medications Medication Current Medications Eye Lubricant (Artificial Tears Oph) 1 drop TID BOTH EYES Last administered on 09/01/18 09:56; Admin Dose 1 DROP; Start 08/27/18 at 21:00 Lorazepam (Ativan) 1 mg Q2H PRN IV ANXIETY Last administered on 08/30/18 11:32; Admin Dose 1 MG; Start 08/30/18 at 11:00 Vancomycin HCl (Vanco Iv Per Pharmacy) 1 ea PER PROTOCOL XX ; Start 08/30/18 at 11:30 Cefepime HCl 50 ml @ 100 mls/hr Q12 IVPB Last administered on 09/01/18 09:56; Admin Dose 100 MLS/HR; Start 08/30/18 at 21:00 Vancomycin/Sodium Chloride 250 ml @ 125 mls/hr Q24H IVPB Last administered on 08/31/18 17:05; Admin Dose 125 MLS/HR; Start 08/31/18 at 16:00 Ascorbic Acid (Vitamin C) 500 mg BID GTB Last administered on 09/01/18 09:55; Admin Dose 500 MG; Start 08/30/18 at 21:00 Finasteride (Proscar) 5 mg DAILY GTB Last administered on 09/01/18 09:55; Admin Dose 5 MG; Start 08/31/18 at 09:00 Lansoprazole (Prevacid) 30 mg DAILY@06 GTB Last administered on 09/01/18 06:07; Admin Dose 30 MG; Start 08/31/18 at 06:00 Loperamide HCl (Imodium 1mg/5ml (10 ml Cup)) 2 mg QID PRN GTB DIARRHEA; Start 08/30/18 at 17:30 Metoprolol Tartrate (Lopressor) 5 mg Q4H PRN IV FOR HR>105, HOLD FOR HR<60; Start 08/30/18 at 17:30 Prenat Multivit/ [place]/Iron/Folic Ac () 1 tab DAILY PO Last administered on 09/01/18 09:55; Admin Dose 1 TAB; Start 08/31/18 at 09:00 Zinc Sulfate (Zinc Sulfate) 220 mg DAILY GTB Last administered on 09/01/18 09:55; Admin Dose 220 MG; Start 08/31/18 at 09:00 Acetylcysteine (Mucomyst) 2 ml Q6H RESP THERAPY NEB Last administered on 09/01/18 07:55; Admin Dose 2 ML; Start 08/31/18 at 02:00 Levalbuterol (Xopenex Neb) 0.63 mg Q6H RESP THERAPY HHN Last administered on 09/01/18 07:55; Admin Dose 0.63 MG; Start 08/31/18 at 02:00 Morphine Sulfate (morphine) 1 mg Q4H PRN IV SEVERE PAIN LEVEL 7-10 Last administered on 08/31/18 03:27; Admin Dose 1 MG; Start 08/30/18 at 22:30 Morphine Sulfate (morphine) 2 mg Q2H PRN IV SHORTNESS OF BREATH Last administered on 09/01/18 05:14; Admin Dose 2 MG; Start 08/30/18 at 23:30 Methenamine (Hiprex) 1 gm BID NGT Last administered on 09/01/18 09:55; Admin Dose 1 GM; Start 08/31/18 at 21:00 Scopolamine (Transderm-Scop) 1 patch Q72H TRANSDERM Last administered on 09/01/18 02:17; Admin Dose 1 PATCH; Start 09/01/18 at 02:00 Miscellaneous Information (*Rx Drug Level Order Reminder*) 1 1500 ONCE XX ; Start 09/02/18 at 15:00; Stop 09/02/18 at 15:01 JANETT RAMIREZ MD September 01, 2018 13:04
--- NOTE | 2018-09-01 13:14 | CONS ---
Assessment/Plan Assessment/Plan Assessment/Plan (Daily) 1. acute prerenal azotemia 2. Septic shock 2/2 UTI 3. right sided pneumothorax s/p R chest tube placement 4. acute hypoxemic respiratory failure intubated on ventilator 5. Metastatic prostate CA 6. Dysphagia s/p G tube placement 7. UTI with Urine cx growign Pseudomonas Plan : Pt is doing very poor, made comfort care, on morphine will sing off now, call us if any questions Consultation Date/Type/Reason Admit Date/Time Aug 17, 2018 at 09:51 Initial Consult Date 08/21/18 Type of Consult NEPHROLOGY Requesting Provider: SANIA WHITTINGTON MD Date/Time of Note DATE: 09/01/18 TIME: 13:14 Exam/Review of Systems Exam Vitals Vital Signs Date Temp Pulse Resp B/P (MAP) Pulse Ox O2 O2 Flow FiO2 Time Delivery Rate 09/01/18 87 29 87/42 (57) 98 Venturi 12:00 Mask 09/01/18 98.7 08:00 09/01/18 9.0 35 07:55 Intake and Output 08/31/18 08/31/18 09/01/18 1515:00 23:00 07:00 IntakeIntake Total 460 ml 780 ml 400 ml OutputOutput Total 45 ml 147 ml 775 ml BalanceBalance 415 ml 633 ml -375 ml Results Result Diagram: 08/30/18 0510 08/30/18 0510 Medications Medication Current Medications Eye Lubricant (Artificial Tears Oph) 1 drop TID BOTH EYES Last administered on 09/01/18at 09:56; Admin Dose 1 DROP; Start 08/27/18 at 21:00 Lorazepam (Ativan) 1 mg Q2H PRN IV ANXIETY Last administered on 08/30/18at 11:32; Admin Dose 1 MG; Start 08/30/18 at 11:00 Vancomycin HCl (Vanco Iv Per Pharmacy) 1 ea PER PROTOCOL XX ; Start 08/30/18 at 11:30 Cefepime HCl 50 ml @ 100 mls/hr Q12 IVPB Last administered on 09/01/18at 09:56; Admin Dose 100 MLS/HR; Start 08/30/18 at 21:00 Vancomycin/Sodium Chloride 250 ml @ 125 mls/hr Q24H IVPB Last administered on 08/31/18at 17:05; Admin Dose 125 MLS/HR; Start 08/31/18 at 16:00 Ascorbic Acid (Vitamin C) 500 mg BID GTB Last administered on 09/01/18 09:55; Admin Dose 500 MG; Start 08/30/18 at 21:00 Finasteride (Proscar) 5 mg DAILY GTB Last administered on 09/01/18 09:55; Admin Dose 5 MG; Start 08/31/18 at 09:00 Lansoprazole (Prevacid) 30 mg DAILY@06 GTB Last administered on 09/01/18 06:07; Admin Dose 30 MG; Start 08/31/18 at 06:00 Loperamide HCl (Imodium 1mg/5ml (10 ml Cup)) 2 mg QID PRN GTB DIARRHEA; Start 08/30/18 at 17:30 Metoprolol Tartrate (Lopressor) 5 mg Q4H PRN IV FOR HR>105, HOLD FOR HR<60; Start 08/30/18 at 17:30 Prenat Multivit/ Manufacturing Executive/Iron/Folic Ac () 1 tab DAILY PO Last administered on 09/01/18 09:55; Admin Dose 1 TAB; Start 08/31/18 at 09:00 Zinc Sulfate (Zinc Sulfate) 220 mg DAILY GTB Last administered on 09/01/18 09:55; Admin Dose 220 MG; Start 08/31/18 at 09:00 Acetylcysteine (Mucomyst) 2 ml Q6H RESP THERAPY NEB Last administered on 09/01/18 07:55; Admin Dose 2 ML; Start 08/31/18 at 02:00 Levalbuterol (Xopenex Neb) 0.63 mg Q6H RESP THERAPY HHN Last administered on 09/01/18 07:55; Admin Dose 0.63 MG; Start 08/31/18 at 02:00 Morphine Sulfate (morphine) 1 mg Q4H PRN IV SEVERE PAIN LEVEL 7-10 Last a dministered on 08/31/18 03:27; Admin Dose 1 MG; Start 08/30/18 at 22:30 Morphine Sulfate (morphine) 2 mg Q2H PRN IV SHORTNESS OF BREATH Last administered on 09/01/18 05:14; Admin Dose 2 MG; Start 08/30/18 at 23:30 Methenamine (Hiprex) 1 gm BID NGT Last administered on 09/01/18at 09:55; Admin Dose 1 GM; Start 08/31/18 at 21:00 Scopolamine (Transderm-Scop) 1 patch Q72H TRANSDERM Last administered on 09/01/18at 02:17; Admin Dose 1 PATCH; Start 09/01/18 at 02:00 Miscellaneous Information (*Rx Drug Level Order Reminder*) 1 1500 ONCE XX ; Start 09/02/18 at 15:00; Stop 09/02/18 at 15:01 CELIA KUMAR MD September 01, 2018 13:14
--- NOTE | 2018-09-01 14:21 | CONS ---
[facility] Patient Name: Tyler Camacho Unit Number: [id number] Date of : 1930 Patient Status: Admitted Inpatient Attending Doctor: Sania Whittington MD Edit: JC ZHENG M.D. on 09/03/18 @ 03:19 Marce: I discussed the management with JENNIFER Conley and agree Assessment/Plan Assessment/Plan Hospital Course (Demo Recall) # sepsis, SIRS, resp - septic shock due to UTI plus SIRS due to possible aspiration, pneumothorax, improved - SIRS due to possible aspiration pneumonitis - probable aspiration pneumonitis - pneumonia vs. colonization of the airway due to Enterobacter - treated with cefepime (08/21/2018-08/26/18) - b/l pleural effusion - s/p R sided thoracentesis on 08/17/2018. LDH 499, protein 3.2, WBC 89 with 6.8% neutrophils. Cultures of the fluid are negative; no malignant cells by cytology - s/p L sided thoracentesis on 08/24/2018. LDH 481, protein 2.1, WBC 345 with 31.7% neutrophils - s/p R PTX - s/p placement of R chest tube on 08/19/2018 - acute hypoxic resp failure - s/p intubation on 08/19/2018 - s/p extubation on 08/25/2018 # , heme/onc - UTI due to pseudomonas - treated with cefepime (08/21/2018-08/26/18) - prostate CA, with probable mets to the lungs and liver (based on CT result) - h/o recent chemotherapy for his prostate CA - frequent UTI prior to admission. Pt was on long-term antibiotic for prophylaxis according to Pt's son - pancytopenia, improving # GI, alimentary - transaminitis, probably a combination of liver metastasis and shock liver - moderately distended gallbladder with a moderate amount of sludge on liver SAKINA on 08/22/2018 - liver mets on liver SAKINA on 08/22/2018 - s/p failure to thrive - s/p placement of G-J tube on 08/16/2018 # other conditions - Alzheimer's dementia - acute metabolic encephalopathy - on comfort measures Recommendations: - On Cefepime IV (08/30/2018-09/02/2018) per Primary team - Continue comfort measures per family wishes - Aspiration precautions Management d/w pt's daughter at bedside, RN Mayuri, and with Dr. Zheng I told pt's daughter that prolonged exposure to antibiotic could cause C. diff, drug resistance, and other adverse side effects. Total critical care time spent: 40 minutes. Consultation Date/Type/Reason Admit Date/Time Aug 17, 2018 at 09:51 Initial Consult Date 08/21/18 Type of Consult Infectious Disease Requesting Provider: SANIA WHITTINGTON MD Date/Time of Note DATE: 09/01/18 TIME: 14:16 24 HR Interval Summary Free Text/Dictation Pt is on comfort measures but with continued antibiotic and medications per d/w PRODUCTION TECHNOLOGIST. Family refusing labs and therefore vancomycin was dc'd since trough could not be obtained and agreed upon by family. Family agreed to low dose morphine q4 hours PRN but declined morphine drip at this time per d/w nursing. Subjective hx not possible: pt non-verbal Exam/Review of Systems Exam Vitals Vital Signs Date Temp Pulse Resp B/P (MAP) Pulse Ox O2 O2 Flow FiO2 Time Delivery Rate 09/01/18 95 30 97 Venti Mask 9.0 35 13:45 09/01/18 87/42 (57) 12:00 09/01/18 98.7 08:00 Intake and Output 08/31/18 08/31/18 09/01/18 1414:59 22:59 06:59 IntakeIntake Total 470 ml 770 ml 430 ml OutputOutput Total 45 ml 147 ml 775 ml BalanceBalance 425 ml 623 ml -345 ml Exam Constitutional: non-verbal, frail, other (chronically ill appearing) Psych: other (demented at baseline) Head: normocephalic, atraumatic, other (bitemporal wasting) Eyes: nl conjunctiva, nl lids, nl sclera ENMT: nl external ears & nose, other (limited exam of OP which is dry) Neck: other (not swollen) Respiratory: diminished breath sounds, other (+R chest tube intact; on Venturi mask with some accessory muscle use) Cardiovascular: regular rate and rhythm (intermittently slightly tachycardic) Gastrointestinal: soft, other (+GJT with TF in progress; Flexiseal with liquid brown stool); No distended Genitourinary - Male: other (+Villanueva; R femoral central line c/d/i ) Musculoskeletal: nl extremities to inspection, muscle weakness Extremities: normal pulses Neurological: other (obtunded) Skin: nl turgor, ecchymosis, other (bilateral heels in heel protective boots; 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); No rash or lesions Results Result Diagram: 08/30/1850908/30/1810 Medications Medication Current Medications Eye Lubricant (Artificial Tears Oph) 1 drop TID BOTH EYES Last administered on 09/01/18 09:56; Admin Dose 1 DROP; Start 08/27/18 at 21:00 Lorazepam (Ativan) 1 mg Q2H PRN IV ANXIETY Last administered on 08/30/18 11:32; Admin Dose 1 MG; Start 08/30/18 at 11:00 Cefepime HCl 50 ml @ 100 mls/hr Q12 IVPB Last administered on 09/01/18 09:56; Admin Dose 100 MLS/HR; Start 08/30/18 at 21:00 Ascorbic Acid (Vitamin C) 500 mg BID GTB Last administered on 09/01/18 09:55; Admin Dose 500 MG; Start 08/30/18 at 21:00 Finasteride (Proscar) 5 mg DAILY GTB Last administered on 09/01/18 09:55; Admin Dose 5 MG; Start 08/31/18 at 09:00 Lansoprazole (Prevacid) 30 mg DAILY@06 GTB Last administered on 09/01/18 06:07; Admin Dose 30 MG; Start 08/31/18 at 06:00 Loperamide HCl (Imodium 1mg/5ml (10 ml Cup)) 2 mg QID PRN GTB DIARRHEA; Start 08/30/18 at 17:30 Metoprolol Tartrate (Lopressor) 5 mg Q4H PRN IV FOR HR>105, HOLD FOR HR<60; Start 08/30/18 at 17:30 Prenat Multivit/ [place]/Iron/Folic Ac () 1 tab DAILY PO Last administered on 09/01/18 09:55; Admin Dose 1 TAB; Start 08/31/18 at 09:00 Zinc Sulfate (Zinc Sulfate) 220 mg DAILY GTB Last administered on 09/01/18 09:55; Admin Dose 220 MG; Start 08/31/18 at 09:00 Acetylcysteine (Mucomyst) 2 ml Q6H RESP THERAPY NEB Last administered on 09/01/18 13:45; Admin Dose 2 ML; Start 08/31/18 at 02:00 Levalbuterol (Xopenex Neb) 0.63 mg Q6H RESP THERAPY HHN Last administered on 09/01/18 13:45; Admin Dose 0.63 MG; Start 08/31/18 at 02:00 Morphine Sulfate (morphine) 1 mg Q4H PRN IV SEVERE PAIN LEVEL 7-10 Last administered on 08/31/18 03:27; Admin Dose 1 MG; Start 08/30/18 at 22:30 Morphine Sulfate (morphine) 2 mg Q2H PRN IV SHORTNESS OF BREATH Last ad ministered on 09/01/18 05:14; Admin Dose 2 MG; Start 08/30/18 at 23:30 Methenamine (Hiprex) 1 gm BID NGT Last administered on 09/01/18 09:55; Admin Dose 1 GM; Start 08/31/18 at 21:00 Scopolamine (Transderm-Scop) 1 patch Q72H TRANSDERM Last administered on 09/01/18 02:17; Admin Dose 1 PATCH; Start 09/01/18 at 02:00 Morphine Sulfate (morphine) 2 mg Q4H IV ; Start 09/01/18 at 14:30; Status SARITHA BRYSON NP September 01, 2018 14:21
[2018-09-01] MEDS ORDERED: morphine 2 MG INJ IV SCH ×2 (14:30→15:00)
--- NOTE | 2018-09-01 15:25 | CONS ---
Consult Date/Type/Reason Admit Date/Time Aug 17, 2018 at 09:51 Initial Consult Date 08/17/18 Type of Consultation: Pulm/CCM Requesting Provider: SANIA WHITTINGTON MD Date/Time of Note DATE: 09/01/18 TIME: 15:21 Subjective No events. Appears overall comfortable though using some accessory muscle of respiration. Objective Vitals Vital Signs Date Temp Pulse Resp B/P (MAP) Pulse Ox O2 O2 Flow FiO2 Time Delivery Rate 09/01/18 95 30 97 Venti Mask 9.0 35 13:45 09/01/18 87/42 (57) 12:00 09/01/18 98.7 08:00 Intake and Output 08/31/18 08/31/18 09/01/18 1515:00 23:00 07:00 IntakeIntake Total 460 ml 780 ml 400 ml OutputOutput Total 45 ml 147 ml 775 ml BalanceBalance 415 ml 633 ml -375 ml Exam NECK: Supple. No JVD or lymphadenopathy. CARDIAC EXAM: S1, S2. No added sounds or murmurs. CHEST: Diminished air entry bilaterally ABDOMEN: Soft, nontender. No guarding or rebound. EXTREMITIES: No cyanosis, clubbing edema +1 NEUROLOGIC: Generalized weakness. Results/Medications Result Diagram: 08/30/1850908/30/18509 Home Meds Reported Medications [Pomi-T] No Conflict Check 08/16/18 Multivitamin/Iron/Folic Acid (Centrum Adults Tablet) 1 Each Tablet, 1 EACH PO, TAB 08/16/18 Dutasteride* (Avodart*) 0.5 Mg Capsule, 0.5 MG PO DAILY, CAP 08/16/18 Bicalutamide* (Bicalutamide*) 50 Mg Tablet, 50 MG PO DAILY, TAB 08/16/18 Sodium Chloride (Sodium Chloride) 1 Gm Granules, 1 GM MC 08/16/18 Vitamin E* (Vitamin E*) 200 Unit Capsule, 180 MG PO DAILY, CAP 08/16/18 Folic Acid* (Folic Acid*) 1 Mg Tablet, 1 MG PO DAILY, TAB 08/16/18 Memantine* (Namenda* XR) 28 Mg Cap.spr.24, 28 MG PO DAILY, #30 TAB 08/16/18 Tamsulosin Hcl* (Flomax*) 0.4 Mg Cap.er.24h, 0.4 MG PO DAILY, CAP 08/16/18 Nitrofurantoin Monohyd Macrocr* (Macrobid*) 100 Mg Capsr, 100 MG PO BID, CAP 08/16/18 Medications Current Medications Eye Lubricant (Artificial Tears Oph) 1 drop TID BOTH EYES Last administered on 09/01/18 14:36; Admin Dose 1 DROP; Start 08/27/18 at 21:00 Lorazepam (Ativan) 1 mg Q2H PRN IV ANXIETY Last administered on 08/30/18 11:32; Admin Dose 1 MG; Start 08/30/18 at 11:00 Cefepime HCl 50 ml @ 100 mls/hr Q12 IVPB Last administered on 09/01/18 09:56; Admin Dose 100 MLS/HR; Start 08/30/18 at 21:00 Ascorbic Acid (Vitamin C) 500 mg BID GTB Last administered on 09/01/18 09:55; Admin Dose 500 MG; Start 08/30/18 at 21:00 Finasteride (Proscar) 5 mg DAILY GTB Last administered on 09/01/18 09:55; Admin Dose 5 MG; Start 08/31/18 at 09:00 Lansoprazole (Prevacid) 30 mg DAILY@06 GTB Last administered on 09/01/18 06:07; Admin Dose 30 MG; Start 08/31/18 at 06:00 Loperamide HCl (Imodium 1mg/5ml (10 ml Cup)) 2 mg QID PRN GTB DIARRHEA; Start 08/30/18 at 17:30 Metoprolol Tartrate (Lopressor) 5 mg Q4H PRN IV FOR HR>105, HOLD FOR HR<60; Start 08/30/18 at 17:30 Prenat Multivit/ [place]/Iron/Folic Ac () 1 tab DAILY PO Last administered on 09/01/18 09:55; Admin Dose 1 TAB; Start 08/31/18 at 09:00 Zinc Sulfate (Zinc Sulfate) 220 mg DAILY GTB Last administered on 09/01/18 09: 55; Admin Dose 220 MG; Start 08/31/18 at 09:00 Acetylcysteine (Mucomyst) 2 ml Q6H RESP THERAPY NEB Last administered on 09/01/18 13:45; Admin Dose 2 ML; Start 08/31/18 at 02:00 Levalbuterol (Xopenex Neb) 0.63 mg Q6H RESP THERAPY HHN Last administered on 09/01/18 13:45; Admin Dose 0.63 MG; Start 08/31/18 at 02:00 Morphine Sulfate (morphine) 1 mg Q4H PRN IV SEVERE PAIN LEVEL 7-10 Last adminis tered on 08/31/18 03:27; Admin Dose 1 MG; Start 08/30/18 at 22:30 Morphine Sulfate (morphine) 2 mg Q2H PRN IV SHORTNESS OF BREATH Last administered on 09/01/18 05:14; Admin Dose 2 MG; Start 08/30/18 at 23:30 Methenamine (Hiprex) 1 gm BID NGT Last administered on 09/01/18 09:55; Admin Dose 1 GM; Start 08/31/18 at 21:00 Scopolamine (Transderm-Scop) 1 patch Q72H TRANSDERM Last administered on 08/22 02:17; Admin Dose 1 PATCH; Start 09/01/18 at 02:00 Morphine Sulfate (morphine) 2 mg Q4H IV Last administered on 09/01/18 14:37; Admin Dose 2 MG; Start 09/01/18 at 14:30 Assessment/Plan Assessment/Plan (Daily) IMP: 1. Acute Hypercapnic/Hypoxemic Respiratory Failure 2/2 L mainstem mucus plugging with complete left lung atelectasis s/p intubation. Resulting positive pressure ventilation thereafter likely led to a right-sided pneumothorax with tension physiology--now extubated. Moderate left pleural effusion with progressive hypoxemia, 2. Tension PTX--resolved 3. Complete Left Lung ATX--2/2 mucus plugging, now re-expanded. 4. Intermittent PSVT--resolved 5. Right lung pneumonia--likely aspiration 6. UTI 7. 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 Prostate Cancer 9. Severe Cachexia/deconditioning 10.Pancytopenia 11.GIB 12.DNR/DNI RECS: 1. Strict aspiration precautions; HOB > 30 2. Spoke with family regarding transitioning to morphine gtt. Given current requirements, would start at 1 mg/hr 3. Continue to monitor for evidence for increase work of breathing 4. Continue tube feeds 35 min cc time VLADIMIR AGGARWAL MD September 01, 2018 15:25
[2018-09-01] MEDS ORDERED: morphine (DRIP) 100 MG/100 ML 100 ML IV SCH (15:30)
--- NOTE | 2018-09-01 17:00 | CONS ---
Assessment/Plan Assessment/Plan Assessment/Plan (Daily) ssessment/Plan Hospital Course (Demo Recall) 87 yo male with prostate cancer with possible bone mets presents with failure to thrive and malnutrition. S/P PEG 08/[address] Rueda Interval hx: Unable to do procedure yesterday. Family discussing comfort care. HH stable. WBC slightly elevated. 1. Dysphagia -GJ tube 2. Failure to thrive. 3. Alzheimer disease. 4. 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 5. Hypertension. 6. Acute hypoxemic hypercarbic respiratory failure. -s/p chest tube placement and intubation 7. Encephalopathy 8. Anemia with downward trend -retic 2.2, Iron and percent sat wnl, TIBC low, ferritin high, FOB neg08/20. FOB pos 08/25 9. S/P thoracentesis with lymphocytic exudate -pending cytology 10. UTI 11. Encephalopathy 12. Pancytopenia secondary to metastatic prostate cancer PLAN: Supportive ICU care Monitor HH and for active GI bleeding Family discussing comfort measures Amanda for diarrhea Consultation Date/Type/Reason Admit Date/Time Aug 17, 2018 at 09:51 Initial Consult Date 08/21/18 Requesting Provider: SANIA WHITTINGTON MD Date/Time of Note DATE: 09/01/18 TIME: 16:59 Exam/Review of Systems Exam Vitals Vital Signs Date Temp Pulse Resp B/P (MAP) Pulse Ox O2 O2 Flow FiO2 Time Delivery Rate 09/01/18 95 30 97 Venti Mask 9.0 35 13:45 09/01/18 87/42 (57) 12:00 09/01/18 98.7 08:00 Intake and Output 08/31/18 08/31/18 09/01/18 1515:00 23:00 07:00 IntakeIntake Total 460 ml 780 ml 400 ml OutputOutput Total 45 ml 147 ml 775 ml BalanceBalance 415 ml 633 ml -375 ml Gastrointestinal: soft, nl liver, spleen, non-tender Musculoskeletal: nl extremities to inspection, nl gait and stance Extremities: normal pulses Results Result Diagram: 08/30/18 0510 08/30/18 05 Medications Medication Current Medications Eye Lubricant (Artificial Tears Oph) 1 drop TID BOTH EYES Last administered on 09/01/18at 14:36; Admin Dose 1 DROP; Start 08/27/18 at 21:00 Lorazepam (Ativan) 1 mg Q2H PRN IV ANXIETY Last administered on 08/30/18 11:32; Admin Dose 1 MG; Start 08/30/18 at 11:00 Cefepime HCl 50 ml @ 100 mls/hr Q12 IVPB Last administered on 09/01/18 09:56; Admin Dose 100 MLS/HR; Start 08/30/18 at 21:00 Ascorbic Acid (Vitamin C) 500 mg BID GTB Last administered on 09/01/18 09:55; Admin Dose 500 MG; Start 08/30/18 at 21:00 Finasteride (Proscar) 5 mg DAILY GTB Last administered on 09/01/18 09:55; Admin Dose 5 MG; Start 08/31/18 at 09:00 Lansoprazole (Prevacid) 30 mg DAILY@06 GTB Last administered on 09/01/18 06:07; Admin Dose 30 MG; Start 08/31/18 at 06:00 Loperamide HCl (Imodium 1mg/5ml (10 ml Cup)) 2 mg QID PRN GTB DIARRHEA; Start 08/30/18 at 17:30 Metoprolol Tartrate (Lopressor) 5 mg Q4H PRN IV FOR HR>105, HOLD FOR HR<60; Start 08/30/18 at 17:30 Prenat Multivit/ [place]/Iron/Folic Ac () 1 tab DAILY PO Last administered on 09/01/18 09:55; Admin Dose 1 TAB; Start 08/31/18 at 09:00 Zinc Sulfate (Zinc Sulfate) 220 mg DAILY GTB Last administered on 09/01/18 09:55; Admin Dose 220 MG; Start 08/31/18 at 09:00 Acetylcysteine (Mucomyst) 2 ml Q6H RESP THERAPY NEB Last administered on 09/01/18 13:45; Admin Dose 2 ML; Start 08/31/18 at 02:00 Levalbuterol (Xopenex Neb) 0.63 mg Q6H RESP THERAPY HHN Last administered on 09/01/18 13:45; Admin Dose 0.63 MG; Start 08/31/18 at 02:00 Methenamine (Hiprex) 1 gm BID NGT Last administered on 09/01/18 09:55; Admin Dose 1 GM; Start 08/31/18 at 21:00 Scopolamine (Transderm-Scop) 1 patch Q72H TRANSDERM Last administered on 09/01/18at 02:17; Admin Dose 1 PATCH; Start 09/01/18 at 02:00 Morphine Sulfate/ Sodium Chloride 100 ml @ 1 mls/hr TITRATE IV Last administered on 09/01/18at 16:09; Admin Dose 1 MLS/HR; Start 09/01/18 at 15:30 AILIN RUEDA MD September 01, 2018 17:00
[2018-09-02] VITALS (24 sets, daily range): BP systolic 78–97; BP diastolic 37–49; PULSE 92–108; RESP 21–26
[2018-09-02] MEDS: ACETYLCYSTEINE 20% 4 ML VIAL NEB SCH ×4 (01:34→20:04)
[2018-09-02] MEDS: LEVALBUTEROL (NEB) 0.63 MG/3 ML AMP HHN SCH ×4 (01:34→20:03)
[2018-09-02] MEDS: LANSOPRAZOLE 30 MG CAP GTB SCH (05:56)
[2018-09-02] MEDS: ARTIFICIAL TEARS 15 ML OPH BOTH EYES SCH ×3 (09:35→20:45)
[2018-09-02] MEDS: METHENAMINE 1 GM TAB NGT SCH (09:35)
[2018-09-02] MEDS: ZINC SULFATE 220 MG CAP GTB SCH (09:36)
[2018-09-02] MEDS: PRENATAL VITAMIN PO SCH (09:36)
[2018-09-02] MEDS: ASCORBIC ACID 500 MG TAB GTB SCH (09:36)
[2018-09-02] MEDS: FINASTERIDE 5 MG TAB GTB SCH (09:37)
--- NOTE | 2018-09-02 10:37 | PN ---
DATE: 09/02/2018 SUBJECTIVE: Follow up on metastatic prostate cancer, acute respiratory failure, possible recent pneu monia and UTI. The patient had been made comfort care and due to increased work of breathing, the alvin szymanski was started on morphine drip at 1 mg an hour. The patient still has accessory muscle use. I s uggested to the family regarding increasing further morphine. They will think about it. At this parker e, they would want to continue with the morphine at 1 mg an hour. The patient remains nonverbal. No reported fever. No reported vomiting. No reported seizures. PHYSICAL EXAMINATION: GENERAL: The patient remains lethargic. VITAL SIGNS: Temperature 97.8, pulse 104, respirations 23, blood pressure 97/46, O2 saturation 99% o n Venturi mask 15 liters. HEENT: No eye discharge or redness. Nose is normal. NECK: No mass. Accessory muscle use present. CHEST: Diminished air entry bilaterally. Chest tube on the right side in place. CARDIOVASCULAR: S1, S2 normal, no murmur. ABDOMEN: Soft, . G-tube in place. EXTREMITIES: Edema present. No cyanosis. NEUROLOGIC: The patient is lethargic. No useful communication possible. IMPRESSION: 1. Acute respiratory failure. Continue supplemental oxygen and morphine drip for comfort care. 2. Metastatic breast cancer, no acute issue. 3. Recent urinary tract infection and pneumonia. The patient is currently on comfort measures and a ntibiotics have been discontinued. The patient remains terminally ill and appropriate for comfort ca re. Plan of care discussed with the patient's family. Dictated By: SANIA REZA/MORENO Conf#: [id number] DID#: [id number] CC: AILIN RUEDA MD;*EndCC*
--- NOTE | 2018-09-02 12:58 | CONS ---
Consult Date/Type/Reason Admit Date/Time Aug 17, 2018 at 09:51 Initial Consult Date 08/17/18 Type of Consultation: Pulm/CCM Requesting Provider: SANIA WHITTINGTON MD Date/Time of Note DATE: 09/02/18 TIME: 12:47 Subjective Appears reasonably comfortable. Now on morphine gtt. Objective Vitals Vital Signs Date Temp Pulse Resp B/P (MAP) Pulse Ox O2 O2 Flow FiO2 Time Delivery Rate 09/02/18 98 24 86/42 (57) Venturi 11:00 Mask 09/02/18 94 15.0 50 09:19 09/02/18 97.9 08:00 Intake and Output 09/01/18 09/01/18 09/02/18 1515:00 23:00 07:00 IntakeIntake Total 400 ml 297 ml 347 ml OutputOutput Total 30 ml 300 ml 205 ml BalanceBalance 370 ml -3 ml 142 ml Exam HEENT: Neck supple; no JVD; no LAD; +accessory muscle use CVS: RRR, S1 and S2 CHEST: Clear with shallow respirations ABD: Soft, NT, + BS EXT: No c/c/e NEURO: Unresponsive Results/Medications Result Diagram: 08/30/1850908/30/18509 Home Meds Reported Medications [Pomi-T] No Conflict Check 08/16/18 Multivitamin/Iron/Folic Acid (Centrum Adults Tablet) 1 Each Tablet, 1 EACH PO, TAB 08/16/18 Dutasteride* (Avodart*) 0.5 Mg Capsule, 0.5 MG PO DAILY, CAP 08/16/18 Bicalutamide* (Bicalutamide*) 50 Mg Tablet, 50 MG PO DAILY, TAB 08/16/18 Sodium Chloride (Sodium Chloride) 1 Gm Granules, 1 GM MC 08/16/18 Vitamin E* (Vitamin E*) 200 Unit Capsule, 180 MG PO DAILY, CAP 08/16/18 Folic Acid* (Folic Acid*) 1 Mg Tablet, 1 MG PO DAILY, TAB 08/16/18 Memantine* (Namenda* XR) 28 Mg Cap.spr.24, 28 MG PO DAILY, #30 TAB 08/16/18 Tamsulosin Hcl* (Flomax*) 0.4 Mg Cap.er.24h, 0.4 MG PO DAILY, CAP 08/16/18 Nitrofurantoin Monohyd Macrocr* (Macrobid*) 100 Mg Capsr, 100 MG PO BID, CAP 08/16/18 Medications Current Medications Eye Lubricant (Artificial Tears Oph) 1 drop TID BOTH EYES Last administered on 09/02/18 09:35; Admin Dose 1 DROP; Start 08/27/18 at 21:00 Lorazepam (Ativan) 1 mg Q2H PRN IV ANXIETY Last administered on 08/30/18 11:32; Admin Dose 1 MG; Start 08/30/18 at 11:00 Finasteride (Proscar) 5 mg DAILY GTB Last administered on 09/02/18 09:37; Admin Dose 5 MG; Start 08/31/18 at 09:00 Lansoprazole (Prevacid) 30 mg DAILY@06 GTB Last administered on 09/02/18 05:56; Admin Dose 30 MG; Start 08/31/18 at 06:00 Loperamide HCl (Imodium 1mg/5ml (10 ml Cup)) 2 mg QID PRN GTB DIARRHEA; Start 08/30/18 at 17:30 Metoprolol Tartrate (Lopressor) 5 mg Q4H PRN IV FOR HR>105, HOLD FOR HR<60; Start 08/30/18 at 17:30 Acetylcysteine (Mucomyst) 2 ml Q6H RESP THERAPY NEB Last administered on 09/02/18 09:19; Admin Dose 2 ML; Start 08/31/18 at 02:00 Levalbuterol (Xopenex Neb) 0.63 mg Q6H RESP THERAPY HHN Last administered on 09/02/18 09:19; Admin Dose 0.63 MG; Start 08/31/18 at 02:00 Scopolamine (Transderm-Scop) 1 patch Q72H TRANSDERM Last administered on 09/01/18 02:17; Admin Dose 1 PATCH; Start 09/01/18 at 02:00 Morphine Sulfate/ Sodium Chloride 100 ml @ 1 mls/hr TITRATE IV Last administered on 09/01/18 16:09; Admin Dose 1 MLS/HR; Start 09/01/18 at 15:30 Assessment/Plan Assessment/Plan (Daily) IMP: 1. Acute Hypercapnic/Hypoxemic Respiratory Failure 2/2 L mainstem mucus plugging with complete left lung atelectasis s/p intubation. Resulting positive pressure ventilation thereafter likely led to a right-sided pneumothorax with tension physiology--now extubated. Moderate left pleural effusion with progressive hypoxemia, 2. Tension PTX--resolved 3. Complete Left Lung ATX--2/2 mucus plugging, now re-expanded. 4. Intermittent PSVT--resolved 5. Right lung pneumonia--likely aspiration 6. UTI 7. 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 Prostate Cancer 9. Severe Cachexia/deconditioning 10.Pancytopenia 11.GIB 12.DNR/DNI RECS: 1. Strict aspiration precautions; HOB > 30 2. Spoke with family regarding increasing morphine gtt 2 mg/hr in order to ensure comfort 3. Continue to monitor for evidence for increase work of breathing and titrate morphine gtt as needed 4. Continue tube feeds 35 min cc time VLADIMIR AGGARWAL MD September 02, 2018 12:58
--- NOTE | 2018-09-02 13:46 | CONS ---
[facility] HCIS Consult Follow-up Patient Name: Tyler Camacho Unit Number: [id number] Date of : 1930 Patient Status: Admitted Inpatient Attending Doctor: Sania Whittington MD Edit: JC ZHENG M.D. on 09/03/18 @ 03:21 Marce: I discussed the management with JENNIFER Danielle and agree Assessment/Plan Assessment/Plan Hospital Course (Demo Recall) # sepsis, SIRS, resp - s/p septic shock due to UTI plus SIRS due to possible aspiration, pneumothorax - SIRS due to possible aspiration pneumonitis - probable aspiration pneumonitis - s/p course of abx - pneumonia vs. colonization of the airway due to Enterobacter - treated with cefepime (08/21/2018-08/26/18) - b/l pleural effusion - s/p R sided thoracentesis on 08/17/2018. LDH 499, protein 3.2, WBC 89 with 6.8% neutrophils. Cultures of the fluid are negative; no malignant cells by cytology - s/p L sided thoracentesis on 08/24/2018. LDH 481, protein 2.1, WBC 345 with 31.7% neutrophils - s/p R PTX - s/p placement of R chest tube on 08/19/2018 - acute hypoxic resp failure, s/p intubation on 08/19/2018 - s/p extubation on 08/25/2018 # , heme/onc - UTI due to pseudomonas - treated with cefepime (08/21/2018-08/26/18) - prostate CA, with probable mets to the lungs and liver (based on CT result) - h/o recent chemotherapy for his prostate CA - frequent UTI prior to admission. Pt was on long-term antibiotic for prophylaxis according to Pt's son - pancytopenia, improving # GI, alimentary - transaminitis, probably a combination of liver metastasis and shock liver - moderately distended gallbladder with a moderate amount of sludge on liver SAKINA on 08/22/2018 - liver mets on liver SAKINA on 08/22/2018 - s/p failure to thrive - s/p placement of G-J tube on 08/16/2018 # other conditions - Alzheimer's dementia - acute metabolic encephalopathy - on comfort measures only with morphine drip Recommendations: - The patient remains on comfort measures with morphine drip and is off antibiotics. - Aspiration precautions Prognosis is terminal. Will sign off. Please feel free to contact us for any ID questions/concerns as needed. Management d/w RN Nicci and with Dr. Zheng Total critical care time spent: 30 minutes. Consultation Date/Type/Reason Admit Date/Time Aug 17, 2018 at 09:51 Initial Consult Date 08/21/18 Type of Consult Infectious Disease Requesting Provider: SANIA WHITTINGTON MD Date/Time of Note DATE: 09/02/18 TIME: 13:46 24 HR Interval Summary Free Text/Dictation 3 day course of empiric cefepime ended last night. Remains on comfort measures. Afebrile. On low dose GT feeds. No reported diarrhea. +Oliguric. Now on morphine drip up to 2 mg /hr, titrating PRN per d/w [employer]. Subjective hx not possible: pt non-verbal Exam/Review of Systems Exam Vitals Vital Signs Date Temp Pulse Resp B/P (MAP) Pulse Ox O2 O2 Flow FiO2 Time Delivery Rate 09/02/18 98 24 86/42 (57) Venturi 11:00 Mask 09/02/18 94 15.0 50 09:19 09/02/18 97.9 08:00 Intake and Output 09/01/18 09/01/18 09/02/18 1515:00 23:00 07:00 IntakeIntake Total 400 ml 297 ml 347 ml OutputOutput Total 30 ml 300 ml 205 ml BalanceBalance 370 ml -3 ml 142 ml Exam Constitutional: non-verbal, frail, other (chronically ill appearing; appears comfortable. is at bedside.) Psych: other (unable to assess) Head: normocephalic, atraumatic, other (bitemporal wasting) Eyes: nl conjunctiva, nl lids, nl sclera ENMT: nl external ears & nose, other (limited exam of OP which is dry) Neck: other (not swollen) Respiratory: diminished breath sounds, other (+R chest tube intact; on Venturi mask but currently getting resp treatment) Cardiovascular: regular rate and rhythm (intermittently slightly tachycardic) Gastrointestinal: soft, other (+GJT with TF in progress); No distended Genitourinary - Male: other (+Villanueva; R femoral central line c/d/i ) Musculoskeletal: nl extremities to inspection, muscle weakness Extremities: normal pulses Neurological: other (obtunded) Skin: nl turgor, ecchymosis, other (bilateral heels in heel protective boots; 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); No rash or lesions Results Result Diagram: 08/30/1850908/30/18509 Medications Medication Current Medications Eye Lubricant (Artificial Tears Oph) 1 drop TID BOTH EYES Last administered on 09/02/18 13:29; Admin Dose 1 DROP; Start 08/27/18 at 21:00 Lorazepam (Ativan) 1 mg Q2H PRN IV ANXIETY Last administered on 08/30/18 11:32; Admin Dose 1 MG; Start 08/30/18 at 11:00 Finasteride (Proscar) 5 mg DAILY GTB Last administered on 09/02/18 09:37; Admin Dose 5 MG; Start 08/31/18 at 09:00 Lansoprazole (Prevacid) 30 mg DAILY@06 GTB Last administered on 09/02/18 05:56; Admin Dose 30 MG; Start 08/31/18 at 06:00 Loperamide HCl (Imodium 1mg/5ml (10 ml Cup)) 2 mg QID PRN GTB DIARRHEA; Start 08/30/18 at 17:30 Metoprolol Tartrate (Lopressor) 5 mg Q4H PRN IV FOR HR>105, HOLD FOR HR<60; Start 08/30/18 at 17:30 Acetylcysteine (Mucomyst) 2 ml Q6H RESP THERAPY NEB Last administered on 09/02/18 13:41; Admin Dose 2 ML; Start 08/31/18 at 02:00 Levalbuterol (Xopenex Neb) 0.63 mg Q6H RESP THERAPY HHN Last administered on 09/02/18 13:41; Admin Dose 0.63 MG; Start 08/31/18 at 02:00 Scopolamine (Transderm-Scop) 1 patch Q72H TRANSDERM Last administered on 09/01/18at 02:17; Admin Dose 1 PATCH; Start 09/01/18 at 02:00 Morphine Sulfate/ Sodium Chloride 100 ml @ 1 mls/hr TITRATE IV Last administered on 09/01/18at 16:09; Admin Dose 1 MLS/HR; Start 09/01/18 at 15:30 SARITHA DANIELLE NP September 02, 2018 13:46
--- NOTE | 2018-09-02 21:18 | CONS ---
Assessment/Plan Assessment/Plan Assessment/Plan (Daily) Hospital Course (Demo Recall) 87 yo male with prostate cancer with possible bone mets presents with failure to thrive and malnutrition. S/P PEG 08/[address] Rueda Interval hx: Unable to do procedure yesterday. Family discussing comfort care. HH stable. WBC slightly elevated. 1. Dysphagia -GJ tube 2. Failure to thrive. 3. Alzheimer disease. 4. 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 5. Hypertension. 6. Acute hypoxemic hypercarbic respiratory failure. -s/p chest tube placement and intubation 7. Encephalopathy 8. Anemia with downward trend -retic 2.2, Iron and percent sat wnl, TIBC low, ferritin high, FOB neg08/20. FOB pos 08/25 9. S/P thoracentesis with lymphocytic exudate -pending cytology 10. UTI 11. Encephalopathy 12. Pancytopenia secondary to metastatic prostate cancer PLAN: Supportive ICU care Monitor HH and for active GI bleeding Family discussing comfort measures Questran for diarrhea Patient is now on morphine drip for comfort measure Consultation Date/Type/Reason Admit Date/Time Aug 17, 2018 at 09:51 Initial Consult Date 08/21/18 Requesting Provider: SANIA WHITTINGTON MD Date/Time of Note DATE: 09/02/18 TIME: 21:17 24 HR Interval Summary Subjective hx not possible: pt non-verbal, pt critical Exam/Review of Systems Exam Vitals Vital Signs Date Temp Pulse Resp B/P (MAP) Pulse Ox O2 O2 Flow FiO2 Time Delivery Rate 09/02/18 96 50 21:05 09/02/18 101 24 15.0 20:25 09/02/18 Venti Mask 20:00 09/02/18 97.6 82/37 (52) 20:00 Intake and Output 09/01/18 09/01/18 09/02/18 1515:00 23:00 07:00 IntakeIntake Total 400 ml 297 ml 348 ml OutputOutput Total 30 ml 300 ml 205 ml BalanceBalance 370 ml -3 ml 143 ml Constitutional: frail Respiratory: diminished breath sounds Musculoskeletal: nl extremities to inspection, nl gait and stance Neurological: lethargic Results Result Diagram: 08/30/1850908/30/18509 Medications Medication Current Medications Eye Lubricant (Artificial Tears Oph) 1 drop TID BOTH EYES Last administered on 09/02/18 20:45; Admin Dose 1 DROP; Start 08/27/18 at 21:00 Lorazepam (Ativan) 1 mg Q2H PRN IV ANXIETY Last administered on 08/30/18 11:32; Admin Dose 1 MG; Start 08/30/18 at 11:00 Finasteride (Proscar) 5 mg DAILY GTB Last administered on 09/02/18 09:37; Admin Dose 5 MG; Start 08/31/18 at 09:00 Lansoprazole (Prevacid) 30 mg DAILY@06 GTB Last administered on 09/02/18 05:56; Admin Dose 30 MG; Start 08/31/18 at 06:00 Loperamide HCl (Imodium 1mg/5ml (10 ml Cup)) 2 mg QID PRN GTB DIARRHEA; Start 08/30/18 at 17:30 Metoprolol Tartrate (Lopressor) 5 mg Q4H PRN IV FOR HR>105, HOLD FOR HR<60; Start 08/30/18 at 17:30 Acetylcysteine (Mucomyst) 2 ml Q6H RESP THERAPY NEB Last administered on 20:04; Admin Dose 2 ML; Start 08/31/18 at 02:00 Levalbuterol (Xopenex Neb) 0.63 mg Q6H RESP THERAPY HHN Last administered on 09/02/18 20:03; Admin Dose 0.63 MG; Start 08/31/18 at 02:00 Scopolamine (Transderm-Scop) 1 patch Q72H TRANSDERM Last administered on 09/01/18 02:17; Admin Dose 1 PATCH; Start 09/01/18 at 02:00 Morphine Sulfate/ Sodium Chloride 100 ml @ 1 mls/hr TITRATE IV Last administered on 09/01/18 16:09; Admin Dose 1 MLS/HR; Start 09/01/18 at 15:30 AILIN RUEDA MD September 02, 2018 21:18
[2018-09-03] VITALS (15 sets, daily range): BP systolic 72–85; BP diastolic 30–40; PULSE 0–111; RESP 24–31
[2018-09-03] MEDS: ACETYLCYSTEINE 20% 4 ML VIAL NEB SCH ×2 (01:43→08:01)
[2018-09-03] MEDS: LEVALBUTEROL (NEB) 0.63 MG/3 ML AMP HHN SCH ×2 (01:44→08:01)
[2018-09-03] MEDS: LANSOPRAZOLE 30 MG CAP GTB SCH (06:00)
--- NOTE | 2018-09-03 07:06 | CONS ---
Assessment/Plan Assessment/Plan Hospital Course (Demo Recall) 87 yo male with prostate cancer with possible bone mets presents with failure to thrive and malnutrition. S/P PEG 08/[address] Mendez Interval hx: Pt is modified comfort measures. Still receiving tube feeds. Morphine gtt at 2 mg. 1. Dysphagia -GJ tube 2. Failure to thrive. 3. Alzheimer disease. 4. 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 5. Hypertension. 6. Acute hypoxemic hypercarbic respiratory failure. -s/p chest tube placement and intubation 7. Encephalopathy 8. Anemia with downward trend -retic 2.2, Iron and percent sat wnl, TIBC low, ferritin high, FOB neg08/20. FOB pos 08/25 9. S/P thoracentesis with lymphocytic exudate -pending cytology 10. UTI 11. Encephalopathy 12. Pancytopenia secondary to metastatic prostate cancer PLAN: Comfort care Pt examined and plan of care discussed with Dr. Mendez Consultation Date/Type/Reason Admit Date/Time Aug 17, 2018 at 09:51 Initial Consult Date Requesting Provider: SANIA WHITTINGTON MD Date/Time of Note DATE: 09/03/18 TIME: 07:05 Exam/Review of Systems Exam Vitals Vital Signs Date Temp Pulse Resp B/P (MAP) Pulse Ox O2 O2 Flow FiO2 Time Delivery Rate 09/03/18 97.6 108 28 76/34 (48) 86 Venturi 04:00 Mask 09/03/18 50 02:59 09/03/18 15.0 02:05 Intake and Output 09/02/18 09/02/18 09/03/18 1515:00 23:00 07:00 IntakeIntake Total 360.25 ml 306 ml 210 ml OutputOutput Total 110 ml 595 ml 370 ml BalanceBalance 250.25 ml -289 ml -160 ml Results Result Diagram: 08/30/18 0510 08/30/18 0510 Medications Medication Current Medications Eye Lubricant (Artificial Tears Oph) 1 drop TID BOTH EYES Last administered on 09/02/18at 20:45; Admin Dose 1 DROP; Start 08/27/18 at 21:00 Lorazepam (Ativan) 1 mg Q2H PRN IV ANXIETY Last administered on 08/30/18at 11:32; Admin Dose 1 MG; Start 08/30/18 at 11:00 Finasteride (Proscar) 5 mg DAILY GTB Last administered on 09/02/18 09:37; Admin Dose 5 MG; Start 08/31/18 at 09:00 Lansoprazole (Prevacid) 30 mg DAILY@06 GTB Last administered on 09/02/18 05:56; Admin Dose 30 MG; Start 08/31/18 at 06:00 Loperamide HCl (Imodium 1mg/5ml (10 ml Cup)) 2 mg QID PRN GTB DIARRHEA; Start 08/30/18 at 17:30 Metoprolol Tartrate (Lopressor) 5 mg Q4H PRN IV FOR HR>105, HOLD FOR HR<60; Start 08/30/18 at 17:30 Acetylcysteine (Mucomyst) 2 ml Q6H RESP THERAPY NEB Last administered on 09/03/18at 01:43; Admin Dose 2 ML; Start 08/31/18 at 02:00 Levalbuterol (Xopenex Neb) 0.63 mg Q6H RESP THERAPY HHN Last administered on 09/03/18 01:44; Admin Dose 0.63 MG; Start 08/31/18 at 02:00 Scopolamine (Transderm-Scop) 1 patch Q72H TRANSDERM Last administered on 09/01/18 02:17; Admin Dose 1 PATCH; Start 09/01/18 at 02:00 Morphine Sulfate/ Sodium Chloride 100 ml @ 1 mls/hr TITRATE IV Last administe red on 09/01/18at 16:09; Admin Dose 1 MLS/HR; Start 09/01/18 at 15:30 ADRIEL DELCID September 03, 2018 07:06
--- NOTE | 2018-09-03 07:22 | PN ---
DATE: 09/01/2018 SUBJECTIVE AND INTERVAL HISTORY: The patient remains critically ill. Blood pressure in 80s and 90s. No reported temperature spike. No reported vomiting. No reported abdominal distention. The patie nt continues to require Venturi mask to maintain adequate saturation, currently, at 9 liter with FIO2 of 35%. The patient did not have any seizures. PHYSICAL EXAMINATION: GENERAL: The patient is lethargic, looks weak and frail. VITAL SIGNS: Temperature 98.7, pulse 83, respirations 30, blood pressure 83/40, O2 saturation 97% on FIO2 30%. HEENT: No eye discharge or redness. Nose is normal externally. NECK: No mass. CHEST: Diminished air entry bilaterally with few scattered coarse breath sounds. CARDIOVASCULAR: Regular rhythm. S1, S2 normal. ABDOMEN: Soft, nondistended. EXTREMITIES: Trace edema. NEUROLOGIC: The patient is lethargic and no communication was possible. LABORATORY DATA: WBC 9.9, hemoglobin 10.4, platelet 134. Sodium 143, potassium 3.7, BUN 30, creatin ine 0.3, glucose 101. IMPRESSION: 1. Acute respiratory failure due to possible pneumonia, worse with underlying lung mets. Continue v ancomycin and cefepime. 2. Mild sinus tachycardia. Since the BP is marginal, will discontinue metoprolol. 4. Metastatic prostate cancer. Continue Proscar. 5. Dysphagia. Continue G-tube feeding. The patient remains terminally ill. Code status has been c hanged to DNR. Current for secretions. Plan of care discussed with the patient's family including son as well as staff nurse. Dictated By: SANIA REZA/MORENO Conf#: [id number] DID#: [id number]
[2018-09-03] MEDS: FINASTERIDE 5 MG TAB GTB SCH (09:03)
[2018-09-03] MEDS: ARTIFICIAL TEARS 15 ML OPH BOTH EYES SCH ×2 (09:03→13:00)
[2018-09-03] MEDS ORDERED: morphine (DRIP) 100 MG/100 ML 100 ML IV SCH (10:00)
--- NOTE | 2018-09-03 11:21 | CONS ---
Consult Date/Type/Reason Admit Date/Time Aug 17, 2018 at 09:51 Initial Consult Date 08/17/18 Type of Consult Pulmonary Requesting Provider: SANIA WHITTINGTON MD Date/Time of Note DATE: 09/03/18 TIME: 11:20 Subjective Appears comfortable on morphine drip no respiratory distress. Objective Vital Signs Date Temp Pulse Resp B/P (MAP) Pulse Ox O2 O2 Flow FiO2 Time Delivery Rate 09/03/18 87 10.0 30 08:00 09/03/18 109 30 Venti Mask 08:00 09/03/18 76/33 (47) 07:00 09/03/18 97.6 04:00 Intake and Output 09/02/18 09/02/18 09/03/18 1414:59 22:59 06:59 IntakeIntake Total 359.25 ml 306 ml 246 ml OutputOutput Total 90 ml 620 ml 385 ml BalanceBalance 269.25 ml -314 ml -139 ml Exam GENERAL: Frail elderly gentleman on facemask O2 VITAL SIGNS: per chart NECK: Supple. No JVD or lymphadenopathy. CARDIAC EXAM: S1, S2. Mild tachycardia CHEST: Diminished air entry bilaterally ABDOMEN: Soft, nontender. No guarding or rebound. EXTREMITIES: No cyanosis, clubbing or edema. NEUROLOGIC: Unable to assess Vent Setting Ventilator Support Mode: AC Fraction of Inspired Oxygen pe: 30 Positive End Expiratory Pressu: 5.0 Results/Medications Result Diagram: 08/30/1850908/30/18509 Medications Current Medications Eye Lubricant (Artificial Tears Oph) 1 drop TID BOTH EYES Last administered on 09/03/18 09:03; Admin Dose 1 DROP; Start 08/27/18 at 21:00 Lorazepam (Ativan) 1 mg Q2H PRN IV ANXIETY Last administered on 08/30/18at 11:32; Admin Dose 1 MG; Start 08/30/18 at 11:00 Finasteride (Proscar) 5 mg DAILY GTB Last administered on 09/03/18 09:03; Admin Dose 5 MG; Start 08/31/18 at 09:00 Lansoprazole (Prevacid) 30 mg DAILY@06 GTB Last administered on 09/02/18at 05:56; Admin Dose 30 MG; Start 08/31/18 at 06:00 Loperamide HCl (Imodium 1mg/5ml (10 ml Cup)) 2 mg QID PRN GTB DIARRHEA; Start 08/30/18 at 17:30 Metoprolol Tartrate (Lopressor) 5 mg Q4H PRN IV FOR HR>105, HOLD FOR HR<60; Start 08/30/18 at 17:30 Acetylcysteine (Mucomyst) 2 ml Q6H RESP THERAPY NEB Last administered on 09/03/18at 08:01; Admin Dose 2 ML; Start 08/31/18 at 02:00 Levalbuterol (Xopenex Neb) 0.63 mg Q6H RESP THERAPY HHN Last administered on 09/03/18at 08:01; Admin Dose 0.63 MG; Start 08/31/18 at 02:00 Scopolamine (Transderm-Scop) 1 patch Q72H TRANSDERM Last administered on 09/01/18at 02:17; Admin Dose 1 PATCH; Start 09/01/18 at 02:00 Morphine Sulfate/ Sodium Chloride 100 ml @ 1 mls/hr TITRATE IV ; Start 09/03/18 at 10:00 Assessment/Plan Hospital Course (Demo Recall) IMP: 1. Acute Hypercapnic/Hypoxemic Respiratory Failure 2/2 L mainstem mucus plugging with complete left lung atelectasis s/p intubation. Resulting positive pressure ventilation thereafter likely led to a right-sided pneumothorax with tension physiology--now extubated. Moderate left pleural effusion with progressive hypoxemia, 2. Tension PTX--resolved 3. Complete Left Lung ATX--2/2 mucus plugging, now re-expanded. 4. Intermittent PSVT--resolved 5. Right lung pneumonia--likely aspiration 6. UTI 7. 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 Prostate Cancer 9. Severe Cachexia/deconditioning 10.Pancytopenia 11.GIB 12.DNR/DNI RECS: 1. Strict aspiration precautions; HOB > 30 2. Spoke with family continue morphine drip 3. Family requesting to keep patient in ICU I did discuss with them transition to private room outside of ICU. 35 min cc time LUIZ RAMOS MD, [facility] September 03, 2018 11:21
--- NOTE | 2018-09-03 12:25 | PN ---
Date/Time of Note Date/Time of Note DATE: 09/03/18 TIME: 12:22 Assessment/Plan VTE Prophylaxis Risk score (from [facility] [place]0 risk: 11 SCD applied (from [facility] [place]): No SCD contraindicated: other Pharmacological prophylaxis: NA/contraindicated Pharm contraindication: thrombocytopenia Lines/Catheters IV Catheter Type (from [facility] Central Line Central line still needed: Yes Urinary Cath still in place: Yes Reason Cath still needed: urinary retention Assessment/Plan Hospital Course Patient is comfort measures only, continued on morphine drip for pain control, patient is on supplemental oxygen via facemask, patient looks comfortable no signs of pain. Patient and daughter are at the bedside. Assessment/Plan - Acute hypoxemic hypercarbic respiratory failure. Dr. Chase is following in pulmonology consultation. - Bilateral pleural effusions. Status post bilateral thoracentesis. - Right chest tube - Metastatic prostate cancer. The patient remains on Casodex. Continue to monitor. The patient is not a candidate for aggressive treatment. - Enterobacter cloacae pneumonia and Pseudomonas aeruginosa urinary tract infection. Continue antibiotics per ID. Dr. Chou is following in infection disease consultation. - Dysphagia with G-tube. - Pancytopenia, stable. - Sacrococcygeal decubitus. Continue local wound care. - DNR/DNI status - Poor prognosis Critical care time spent is 30 minutes. Further recommendations based on clinical course. Plan of care discussed with Dr. Malin. Result Diagram: 08/30/18 0510 08/30/18 0510 Exam/Review of Systems Exam Vitals Vital Signs Date Temp Pulse Resp B/P (MAP) Pulse Ox O2 O2 Flow FiO2 Time Delivery Rate 09/03/18 87 10.0 30 08:00 09/03/18 109 30 Venti Mask 08:00 09/03/18 76/33 (47) 07:00 09/03/18 97.6 04:00 Intake and Output 09/02/18 09/02/18 09/03/18 1515:00 23:00 07:00 IntakeIntake Total 360.25 ml 306 ml 214 ml OutputOutput Total 110 ml 595 ml 370 ml BalanceBalance 250.25 ml -289 ml -156 ml Exam Constitutional: lethargic, frail Respiratory: diminished breath sounds, other (Right chest tube) Cardiovascular: regular rate and rhythm Gastrointestinal: soft, non-tender, other (G-tube) Genitourinary - Male: other ([place]) Extremities: normal pulses Medications Medication Current Medications Eye Lubricant (Artificial Tears Oph) 1 drop TID BOTH EYES Last administered on 09/03/18 09:03; Admin Dose 1 DROP; Start 08/27/18 at 21:00 Lorazepam (Ativan) 1 mg Q2H PRN IV ANXIETY Last administered on 08/30/18 11:32; Admin Dose 1 MG; Start 08/30/18 at 11:00 Finasteride (Proscar) 5 mg DAILY GTB Last administered on 09/03/18 09:03; Admin Dose 5 MG; Start 08/31/18 at 09:00 Lansoprazole (Prevacid) 30 mg DAILY@06 GTB Last administered on 09/02/18 05:56; Admin Dose 30 MG; Start 08/31/18 at 06:00 Loperamide HCl (Imodium 1mg/5ml (10 ml Cup)) 2 mg QID PRN GTB DIARRHEA; Start 08/30/18 at 17:30 Metoprolol Tartrate (Lopressor) 5 mg Q4H PRN IV FOR HR>105, HOLD FOR HR<60; Start 08/30/18 at 17:30 Acetylcysteine (Mucomyst) 2 ml Q6H RESP THERAPY NEB Last administered on 09/03/18 08:01; Admin Dose 2 ML; Start 08/31/18 at 02:00 Levalbuterol (Xopenex Neb) 0.63 mg Q6H RESP THERAPY HHN Last administered on 09/03/18 08:01; Admin Dose 0.63 MG; Start 08/31/18 at 02:00 Scopolamine (Transderm-Scop) 1 patch Q72H TRANSDERM Last administered on 09/01/18 02:17; Admin Dose 1 PATCH; Start 09/01/18 at 02:00 Morphine Sulfate/ Sodium Chloride 100 ml @ 1 mls/hr TITRATE IV ; Start 09/03/18 at 10:00 DIANA BROOKS September 03, 2018 12:25
== END 2018-09-03 13:35 | disposition expired | DRG 947 ==
LOC: GIL 11:14 → UNDOADMIN 14:10 → TEL 14:10 → UNDOADMOB 18:45 → TEL 18:45 → ICU 08-19 11:07 → TEL 08-19 11:07
PROVIDERS: ADMIT Internal Medicine Gastroenterology; ATTEND Internal Medicine
PROC: 30233N1 Transfusion of Nonautologous Red Blood Cells into Peripheral Vein, Percutaneous Approach (ICD-10-PCS; 2018-08-16)
PROC: 0DHA3UZ Insertion of Feeding Device into Jejunum, Percutaneous Approach (ICD-10-PCS; principal; 2018-08-16 12:30)
PROC: 0W993ZX Drainage of Right Pleural Cavity, Percutaneous Approach, Diagnostic (ICD-10-PCS; 2018-08-17)
PROC: 0BH17EZ Insertion of Endotracheal Airway into Trachea, Via Natural or Artificial Opening (ICD-10-PCS; 2018-08-18)
PROC: 06HY33Z Insertion of Infusion Device into Lower Vein, Percutaneous Approach (ICD-10-PCS; 2018-08-19)
PROC: 0BH17EZ Insertion of Endotracheal Airway into Trachea, Via Natural or Artificial Opening (ICD-10-PCS; 2018-08-19)
PROC: 5A1955Z Respiratory Ventilation, Greater than 96 Consecutive Hours (ICD-10-PCS; 2018-08-19)
PROC: 0W9930Z Drainage of Right Pleural Cavity with Drainage Device, Percutaneous Approach (ICD-10-PCS; 2018-08-19)
PROC: 30233K1 Transfusion of Nonautologous Frozen Plasma into Peripheral Vein, Percutaneous Approach (ICD-10-PCS; 2018-08-23)
PROC: 30233R1 Transfusion of Nonautologous Platelets into Peripheral Vein, Percutaneous Approach (ICD-10-PCS; 2018-08-23)
PROC: 0W9B3ZZ Drainage of Left Pleural Cavity, Percutaneous Approach (ICD-10-PCS; 2018-08-24)
PROC: 0W9B3ZZ Drainage of Left Pleural Cavity, Percutaneous Approach (ICD-10-PCS; 2018-08-27)
DX: R64 Cachexia (principal); E43 Unspecified severe protein-calorie malnutrition; J96.02 Acute respiratory failure with hypercapnia; J96.01 Acute respiratory failure with hypoxia; J93.0 Spontaneous tension pneumothorax; J69.0 Pneumonitis due to inhalation of food and vomit; G93.41 Metabolic encephalopathy; J15.6 Pneumonia due to other Gram-negative bacteria; A41.9 Sepsis, unspecified organism; R65.21 Severe sepsis with septic shock; Z68.1 Body mass index [BMI] 19.9 or less, adult; D61.9 Aplastic anemia, unspecified; C79.51 Secondary malignant neoplasm of bone; J90 Pleural effusion, not elsewhere classified; E87.0 Hyperosmolality and hypernatremia; N39.0 Urinary tract infection, site not specified; D61.818 Other pancytopenia; J98.11 Atelectasis; I47.1 Supraventricular tachycardia; G93.40 Encephalopathy, unspecified; D68.9 Coagulation defect, unspecified; R13.10 Dysphagia, unspecified; C61 Malignant neoplasm of prostate; I11.0 Hypertensive heart disease with heart failure; I50.9 Heart failure, unspecified; E83.39 Other disorders of phosphorus metabolism; G30.9 Alzheimer's disease, unspecified; F02.80 Dementia in other diseases classified elsewhere, unspecified severity, without behavioral disturbance, psychotic disturbance, mood disturbance, and anxiety; D64.9 Anemia, unspecified; M62.81 Muscle weakness (generalized); I49.9 Cardiac arrhythmia, unspecified; M19.90 Unspecified osteoarthritis, unspecified site; E87.6 Hypokalemia; L89.151 Pressure ulcer of sacral region, stage 1; L89.621 Pressure ulcer of left heel, stage 1; L89.611 Pressure ulcer of right heel, stage 1; B96.5 Pseudomonas (aeruginosa) (mallei) (pseudomallei) as the cause of diseases classified elsewhere; Z66 Do not resuscitate
CPT/HCPCS: 31500; 32555; 36430; 36600; 71045; 71250; 76705; 76942; 80048; 80053; 80061; 81001; 82140; 82270; 82533; 82550; 82553; 82607; 82728; 82746; 82803; 82945; 82962; 83540; 83605; 83615; 83735; 84100; 84145; 84153; 84154; 84157; 84443; 84484; 85025; 85045; 85049; 85362; 85378; 85384; 85610; 85670; 85730; 86644; 86850; 86900; 86901; 86920; 87070; 87075; 87081; 87086; 87102; 87116; 88104; 88305; 89051; 89220; 93005; 93306; 94002; 94003; 94640; 94660; 94664; 94667; 94770; C1751; C9113; J0131; J0690; J0692; J1815; J1940; J2060; J2270; J2370; J2543; J3370; J3420; J3480; J7040; J7042; J7050; J7070; J7120; P9016; P9035; P9047; P9059